=== PATIENT | male | born 1940 | race American Indian/Alaskan Native ===

== ENCOUNTER 2017-03-30 17:05 | Inpatient (IN) | payer MEDICARE, OTHER ==
[2017-03-30 17:10] VITALS: BMI 32.8
[2017-03-30 18:03] LABS: BASO # 0.04 K/mm3 (0.0-2.0); BASO % 0.9 % (0.0-3.0); EOS # 0.1 (0.0-0.7); EOS % 1.2 % (1.5-5.0); GRAN # 3.03 (1.4-6.5); GRAN % 71.1 % (50.0-68.0); HEMATOCRIT 38.2 % (42.0-52.0); LYMPH # 0.7 (1.2-3.4); LYMPH % 17.4 % (22.0-35.0); MEAN CELL VOLUME 84.9 fl (80.0-105.0); MEAN CORPUSCULAR HEMOGLOBIN 29.6 pg (25.0-35.0); MEAN CORPUSCULAR HGB CONC 34.8 g/dl (31.0-37.0); MEAN PLATELET VOLUME 10.9 fl (7.0-11.0); MONO # 0.4 (0.1-0.6); MONO % 9.4 % (1.0-6.0); RED CELL DISTRIBUTION WIDTH 13.7 % (11.5-14.5); VENOUS BLOOD GAS BASE EXCESS 4.4 mmol/L (0.0-2.0); VENOUS BLOOD PH 7.44 (7.32-7.43); WHITE BLOOD COUNT 4.3 10^3/ul (4.5-11.0)
[2017-03-30 18:11] LABS: ALB/GLOB RATIO 1.1 (1.1-1.8); ALKALINE PHOSPHATASE 108 U/L (38-126); ALT/SGPT 26 U/L (7-56); AST/SGOT 25 U/L (17-59); BILIRUBIN,TOTAL 0.8 mg/dL (0.2-1.3); BLOOD UREA NITROGEN 19 mg/dL (7-21); CALCIUM 8.9 mg/dL (8.4-10.5); CARBON DIOXIDE 25 mmol/L (21-33); CHLORIDE 105 mmol/L (98-107); GFR AFRICAN-AMERICAN > 60; INR 1.01 (0.93-1.08); PARTIAL THROMBOPLASTIN TIME 26.8 Seconds (23.7-30.8); POTASSIUM 4.6 mmol/L (3.6-5.0); SODIUM 139 mmol/L (132-148); TOTAL PROTEIN 7.8 g/dL (5.8-8.3)
[2017-03-30] MEDS ORDERED: Sodium Chloride 0.9% 500 ML IV STA (18:14)
[2017-03-30 18:26] LABS: GLUCOSE,RANDOM 372 mg/dL (70-110); TROPONIN I 0.01 ng/mL
[2017-03-30 18:41] LABS: PH,URINE 7.5 (4.7-8.0); URINE BILIRUBIN NEGATIVE (NEGATIVE); URINE BLOOD MODERATE (NEGATIVE); URINE COLOR YELLOW (YELLOW); URINE GLUCOSE (UA) >=1000 mg/dL (NEGATIVE); URINE KETONE NEGATIVE (NEGATIVE); URINE LEUKOCYTE ESTERASE SMALL Leu/uL (NEGATIVE); URINE PROTEIN 30 mg/dL (<30 mg/dL)
[2017-03-30 18:52] LABS: URINE APPEARANCE CLOUDY (CLEAR); URINE BACTERIA MANY (NEG); URINE RBC TNTC /hpf (0-2); URINE WBC TNTC /hpf (0-6)
--- NOTE | 2017-03-30 19:04 | CT ---
EXAM: CT Head Without Intravenous Contrast EXAM DATE/TIME: 03/30/2017 5:55 PM CLINICAL HISTORY: 76 years old, male; Injury or trauma; Fall; Initial encounter; Concussion / head injury; Additional info: Fall, weakness TECHNIQUE: Axial computed tomography images of the head/brain without intravenous contrast. All CT scans at this facility use one or more dose reduction techniques, viz.: automated exposure control; ma/kV adjustment per patient size (including targeted exams where dose is matched to indication; i.e. head); or iterative reconstruction technique. COMPARISON: There are no prior studies for comparison. FINDINGS: Brain: Ventricles are normal in size and configuration. There is no midline shift. There is mild prominence of sulci and gyri. There are no intra-axial or extra-axial mass lesions or areas of hemorrhage. There are no abnormal fluid collections. Langley-white differentiation is maintained. Ventricles: See above. Bones: Cranial vault is intact. Soft tissues: unremarkable Sinuses: There is no acute sinusitis. Ears and mastoids: Middle ears and mastoids are unremarkable Orbits: Orbital contents are unremarkable. IMPRESSION: No acute intracranial abnormality
[2017-03-30] MEDS ORDERED: Insulin Regular 1 UNITS/0.01 ML ML SC STA (20:55)
[2017-03-30] MEDS ORDERED: cefTRIAXone 1 gm 1 GM/100 ML BAG IVPB STA (20:57)
--- NOTE | 2017-03-30 21:14 | ED PDOC ---
Arrival/HPI - General Chief Complaint: Weakness/Neurological Deficit Time Seen by Provider: 03/30/17 17:08 Historian: Patient, Family - History of Present Illness Narrative History of Present Illness (Text): 03/30/17 21:03 76yr old male presents brought in by family for their concerns for weakness and inability to ambulate for the past 2 days. Patient with a history of diabetes and hypertension noncompliant with any of his medications. Patient denies headache dizziness. He denies chest pain or shortness of breath. He denies abdominal pain. Denies nausea or vomiting. He denies pain in the lower extremities. Patient states he's had trouble moving his right leg but there is no pain. Patient states he's had chronic lower leg swelling. Family states they noticed wounds on the anterior lower legs. Time/Duration: Other (2 days) Symptom Onset: Gradual Symptom Course: Worsening Quality: Other (NO PAIN) Past Medical History - Provider Review Nursing Documentation Reviewed: Yes - Travel History Have you recently traveled outside [place] w/in the past 3 mons?: No - Infectious Disease Hx of Infectious Diseases: None - Tetanus Immunization Tetanus Immunization: Unknown - Endocrine/Metabolic Hx Diabetes Mellitus Type 2: Yes - Psychiatric Hx Substance Use: No Family/Social History - Physician Review Nursing Documentation Reviewed: Yes Family/Social History: Unknown Family HX Smoking Status: Never Smoked Hx Alcohol Use: Yes Frequency of alcohol use: Socially Hx Substance Use: No Allergies/Home Meds Allergies/Adverse Reactions: Allergies No Known Allergies Allergy (Verified 03/30/17 17:42) Home Medications: Home Meds Medication Instructions Recorded Confirmed No Known Home Med 03/30/17 03/30/17 Review of Systems - Review of Systems Constitutional: absent: Fatigue, Fevers Eyes: absent: Vision Changes ENT: absent: Sinus Congestion Respiratory: absent: SOB, Cough Cardiovascular: absent: Chest Pain, Palpitations Gastrointestinal: absent: Abdominal Pain, Nausea, Vomiting, Appetite Changes Genitourinary Male: absent: Dysuria, Frequency, Hematuria, Urinary Output Changes Musculoskeletal: absent: Arthralgias, Back Pain, Neck Pain Skin: Skin Lesions Neurological: absent: Headache, Dizziness, Focal Weakness Psychiatric: absent: Anxiety, Depression Physical Exam Vital Signs Reviewed: Yes Vital Signs Temp Pulse Resp BP Pulse Ox 03/30/17 20:14 91 H 16 178/100 H 100 03/30/17 17:05 98 F 93 H 18 203/102 H 97 Temperature: Afebrile Blood Pressure: Hypertensive Pulse: Regular Respiratory Rate: Normal Appearance: Positive for: Well-Appearing, Non-Toxic, Comfortable Pain Distress: None Mental Status: Positive for: Alert and Oriented X 3 Finger Stick Blood Glucose: 344 - Systems Exam Head: Present: Atraumatic Mouth: Present: Moist Mucous Membranes Neck: Present: Normal Range of Motion Respiratory/Chest: Present: Clear to Auscultation. No: Wheezes, Rhonchi, Tachypneic Cardiovascular: Present: Regular Rate and Rhythm Abdomen: No: Tenderness, Distention, Peritoneal Signs, Guarding Back: No: Midline Tenderness, Paraspinal Tenderness Upper Extremity: Present: Normal ROM. No: Tenderness Lower Extremity: Present: Edema, NORMAL PULSES, Swelling, Erythema, Neurovascularly Intact, Other (right leg; shortened, limited rom of hip; NO tenderness. left leg; full rom of leg; abrasion noted to left leg; + minimal erythema; + edema lower extremities bilaterally; sensation intact. ). No: CALF TENDERNESS, Normal ROM, Tenderness, Deformity Neurological: Present: GCS=15, Speech Normal Skin: Present: Warm, Dry Psychiatric: Present: Alert, Oriented x 3 Medical Decision Making ED Course and Treatment: 03/30/17 21:17 76yr old male Brought in by family for weakness and inability to ambulate. history of fall 2 days ago. pt denies any complaints. pt slightly hypertensive, elevated glucose. cbc; wnl cmp; glucose; 372 trop; wnl bnp; wnl cxr; wnl ct head; FINDINGS: Brain: Ventricles are normal in size and configuration. There is no midline shift. There is mild prominence of sulci and gyri. There are no intra-axial or extra-axial mass lesions or areas of hemorrhage. There are no abnormal fluid collections. Langley-white differentiation is maintained. Ventricles: See above. Bones: Cranial vault is intact. Soft tissues: unremarkable Sinuses: There is no acute sinusitis. Ears and mastoids: Middle ears and mastoids are unremarkable Orbits: Orbital contents are unremarkable. IMPRESSION: No acute intracranial abnormality ekg; normal sinus rhythm at 93 bpm with an incomplete right bundle branch block QTc 509 UA: + leukocytes, TNTC WBCS urine culture pending blood culture pending vbg; glucose 403 lactate wnl xray of right hip; + fracture of hip. venous duplex b/l lower extremities; no dvt pt started on rocephin IV for UTI insulin given sq for elevated glucose all results discussed in depth with patient and family. dr. mustafa discussed case in depth with dr. cardoza; accepts admission case discussed with resident dr. roldan. will consult dr. kemp for hip fracture impression; UTI, hyperglycemia, hypertension, near syncope, hip fracture admit to tele - Lab Interpretations Lab Results: 03/30/17 17:35 03/30/17 17:35 Lab Results 03/30/17 18:30: Urine Color Yellow, Urine Appearance Cloudy, Urine pH 7.5, Ur Specific [place] 1.020, Urine Protein 30 H, Urine Glucose (UA) >=1000, Urine Ketones Negative, Urine Blood Moderate H, Urine Nitrate Negative, Urine Bilirubin Negative, Urine Urobilinogen 1.0 H, Ur Leukocyte Esterase Small H, Urine RBC Tntc, Urine WBC Tntc, Ur Epithelial Cells 6 - 8, Urine Bacteria Many 03/30/17 17:35: WBC 4.3 L, RBC 4.50, Hgb 13.3 L, Hct 38.2 L, MCV 84.9, MCH 29.6 , MCHC 34.8, RDW 13.7, Plt Count 207, MPV 10.9, Gran % 71.1 H, Lymph % (Auto) 17.4 L, [place] % (Auto) 9.4 H, Eos % (Auto) 1.2 L, Baso % (Auto) 0.9, Gran # 3.03 , Lymph # 0.7 L, [place] # 0.4, Eos # 0.1, Baso # 0.04 03/30/17 17:35: Sodium 139, Chloride 105, Potassium 4.6, Carbon Dioxide 25, Anion Gap 14, BUN 19, Creatinine 1.1, Est GFR ( Amer) > 60, Est GFR (Non- Af Amer) > 60, Random Glucose 372 H*, Calcium 8.9, Total Bilirubin 0.8, AST 25, ALT 26, Alkaline Phosphatase 108, Lactate Dehydrogenase 885 H, Total Creatine Kinase 142, Troponin I 0.01, NT-Pro-B Natriuret Pep 431, Total Protein 7.8, Albumin 4.0, Globulin 3.8, Albumin/Globulin Ratio 1.1 03/30/17 17:35: PT 10.9, INR 1.01, APTT 26.8 03/30/17 17:35: pO2 54, VBG pH 7.44 H, VBG pCO2 43.0, VBG HCO3 29.2 H, VBG Total CO2 30.5 H, VBG O2 Sat (Calc) 91.7 H, VBG Base Excess 4.4 H, VBG Potassium 4.5, Sodium 139.0, Chloride 105.0, Glucose 403 H*, Lactate 1.0, FiO2 21.0, Venous Blood Potassium 4.5 - RAD Interpretation Radiology Orders: 03/30/17 17:55 HEAD W/O CONTRAST [CT] Stat CHEST ONE VIEW [RAD] Stat Hip Right [HIP MIN 2V W/ PELVIS RT] [RAD] Stat DUPLEX LOWER EXTRM VEIN BILAT [US] Stat - Medication Orders Current Medication Orders: Ceftriaxone Sodium (Rocephin 1 Gram Ivpb) 1 gm in 100 mls @ 200 mls/hr IVPB STAT STA PRN Reason: Protocol Stop: 03/30/17 21:26 Discontinued Medications Sodium Chloride (Sodium Chloride 0.9%) 500 mls @ 999 mls/hr IV .Q31M STA Stop: 03/30/17 18:44 Last Admin: 03/30/17 19:26 Dose: 999 mls/hr Insulin Human Regular (Humulin R) 6 units SC STAT STA Stop: 03/30/17 20:56 Disposition/Present on Arrival - Present on Arrival Any Indicators Present on Arrival: Yes History of DVT/PE: No History of Uncontrolled Diabetes: Yes Urinary Catheter: No History of Decub. Ulcer: No History Surgical Site Infection Following: None - Disposition Have Diagnosis and Disposition been Completed?: Yes Diagnosis: UTI (urinary tract infection), Hyperglycemia, Hypertension, Weakness, Hip fracture, Near syncope Disposition: HOSPITALIZED Disposition Time: 20:00 Patient Plan: Admission, Telemetry Patient Problems: Current Active Problems Problem Status Onset Fall Acute Hip fracture Acute Hyperglycemia Acute Hypertension Acute Near syncope Acute UTI (urinary tract infection) Acute Weakness Acute Condition: FAIR Discharge Instructions (ExitCare): Weakness (ED) Referrals: [facility] Dedrick Rezeyad, [Non-Staff] - Follow up with primary Forms: [employer] (Uzbek)
[2017-03-30] MEDS ORDERED: Sodium Chloride 0.9% 1,000 ML IV SCH (22:15)
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
[2017-03-31] MEDS: Cefepime 1gm in NS 100ml 1 GM/100 ML BAG IVPB SCH ×3 (00:20→21:18)
--- NOTE | 2017-03-31 00:29 | CT ---
EXAM: CT Chest Without Intravenous Contrast CLINICAL HISTORY: 76 years old, male; Injury or trauma; Fall; Initial encounter; Blunt; Generalized; Blunt trauma (contusions or hematomas); Additional info: S/P fall TECHNIQUE: Axial computed tomography images of the chest without intravenous contrast. All CT scans at this facility use one or more dose reduction techniques, viz.: automated exposure control; ma/kV adjustment per patient size (including targeted exams where dose is matched to indication; i.e. head); or iterative reconstruction technique. Coronal and sagittal reformatted images were created and reviewed. COMPARISON: There are no prior studies for comparison. FINDINGS: Lungs and pleural spaces: Trachea and main bronchi are patent.There is no pneumothorax. There is no focal consolidation or contusion. There is dependent atelectasis and scarring greatest at the lung bases. There are no effusions. Heart and vasculature: Heart size is normal. There are coronary artery calcifications.There is fluid in the pericardial recesses. Aorta is normal in caliber. Main pulmonary artery is mildly prominent. Mediastinum: Esophagus is partially distended with air. There is a small hiatal hernia. There are clips at the gastroesophageal junction.There is shotty mediastinal adenopathy. Laura are not optimally evaluated without contrast material. Thyroid: Thyroid is not optimally demonstrated. Bones/joints: Bony structures are osteopenic. There are degenerative changes. There are no acute displaced rib fractures. Soft tissues: There is gynecomastia on the left. Upper abdomen: Referring to follow report for abdominal findings IMPRESSION: No acute intrathoracic injury, no acute displaced rib fracture Additional findings as described above. EXAM: CT Abdomen and Pelvis Without Intravenous Contrast EXAM DATE/TIME: 03/30/2017 10:56 PM CLINICAL HISTORY: 76 years old, male; Injury or trauma; Fall; Initial encounter; Blunt; Generalized; Blunt trauma (contusions or hematomas); Additional info: S/P fall TECHNIQUE: Axial computed tomography images of the abdomen and pelvis without intravenous contrast. All CT scans at this facility use one or more dose reduction techniques, viz.: automated exposure control; ma/kV adjustment per patient size (including targeted exams where dose is matched to indication; i.e. head); or iterative reconstruction technique. Coronal and sagittal reformatted images were created and reviewed. COMPARISON: DX - HIP MIN 2V W/ PELVIS RT 03/30/2017 6:48:36 PM FINDINGS: Artifact: There is streak artifact from a monitor Lower thorax: Refer to prior report for chest findings ABDOMEN: Liver: unremarkable Gallbladder and bile ducts: Gallbladder is partially distended. Common duct is prominent. Pancreas: Pancreas is mildly atrophic. Spleen: unremarkable Adrenals: There are bilateral adrenal nodules. Kidneys and ureters: There are bilateral renal cysts. Kidneys and ureters are otherwise unremarkable. Stomach and bowel: Stomach is almost completely empty. Rotation is normal. Small bowel is mildly distended with fluid and air. There is no obstruction. Appendix and terminal ileum are unremarkable.There is moderate stool in the colon. Appendix: See stomach and bowel PELVIS: Bladder: Bladder is partially distended. There is mild bladder wall thickening. There is minimal perivesical inflammation. Reproductive: Prostate is enlarged. Seminal vesicles are unremarkable. ABDOMEN and PELVIS: Intraperitoneal space:There is no free air or free fluid. Bones/joints: Bony structures are osteopenic.There are degenerative changes in the osseus structures. There is a right subcapital fracture which appears subacute. There is distraction at the fracture site. Soft tissues: unremarkable Vasculature: There are vascular calcifications. Lymph nodes: There is no pathologic adenopathy. IMPRESSION: No acute solid visceral or bowel injury; enlarged prostate with bladder wall thickening; subacute right hip fracture Additional findings as described above.
[2017-03-31 01:25] LABS: CHOLESTEROL 163 mg/dL (130-200)
[2017-03-31 01:44] LABS: FREE T4 1.27 ng/dL (0.78-2.19); T4 8.4 ug/dL (5.5-11.0)
[2017-03-31] MEDS: Sodium Chloride 0.9% 1,000 ML IV SCH ×2 (01:50→09:59)
[2017-03-31 01:53] LABS: TROPONIN I < 0.01 ng/mL
[2017-03-31 01:57] LABS: THYROID STIMULATING HORMONE 1.83 mIU/mL (0.46-4.68)
[2017-03-31] MEDS: Pantoprazole 40 mg EC Tab PO SCH (05:32)
[2017-03-31] MEDS: Insulin Human NPH 1 UNITS/0.01 ML SC SCH (06:19)
[2017-03-31 07:08] LABS: HEMATOCRIT 35.4 % (42.0-52.0); MEAN CELL VOLUME 85.3 fl (80.0-105.0); MEAN CORPUSCULAR HEMOGLOBIN 29.2 pg (25.0-35.0); MEAN CORPUSCULAR HGB CONC 34.2 g/dl (31.0-37.0); MEAN PLATELET VOLUME 10.5 fl (7.0-11.0); WHITE BLOOD COUNT 6.9 10^3/ul (4.5-11.0)
--- NOTE | 2017-03-31 07:27 | RAD ---
PROCEDURE: Radiographs of the Right Shoulder HISTORY: s/p fall COMPARISON: No prior. FINDINGS: BONES: Normal. No fracture. JOINTS: Glenohumeral osteoarthritis. Acromioclavicular articulation is intact. SOFT TISSUES: Normal. OTHER FINDINGS: None. IMPRESSION: No acute fracture. Glenohumeral osteoarthritis.
--- NOTE | 2017-03-31 07:29 | RAD ---
PROCEDURE: CHEST RADIOGRAPH, 1 VIEW HISTORY: chest pain COMPARISON: None available. FINDINGS: LUNGS: GoClear. PLEURA: No pneumothorax or pleural fluid seen. CARDIOVASCULAR: Normal. OSSEOUS STRUCTURES: No significant abnormalities. VISUALIZED UPPER ABDOMEN: Normal. OTHER FINDINGS: None. IMPRESSION: No active disease.
[2017-03-31] MEDS ORDERED: Insulin Lispro (humaLOG) MEDIUM Coverage SC SCH (07:30)
--- NOTE | 2017-03-31 07:32 | RAD ---
PROCEDURE: Right Hip Radiographs. HISTORY: hip pain COMPARISON: None. FINDINGS: BONES: There is no acute fracture. There is fracture of the right femoral neck with absence of the normal femoral neck bone identified, likely reflecting a chronic/subacute fracture with nonunion and resorption. Please correlate with history. There is no dislocation. There is no other fracture identified elsewhere. JOINTS: As above SOFT TISSUES: Normal. OTHER FINDINGS: None. IMPRESSION: Probable chronic/subacute fracture right femoral neck with bony resorption. Please correlate with history to rule out acute fracture.
[2017-03-31 07:36] LABS: BILIRUBIN,TOTAL 0.9 mg/dL (0.2-1.3); CALCIUM 8.6 mg/dL (8.4-10.5); POTASSIUM 3.9 mmol/L (3.6-5.0); TOTAL PROTEIN 6.7 g/dL (5.8-8.3)
[2017-03-31] MEDS ORDERED: HYDROmorphone 0.5 mg/0.5 ml ISec IVP PRN ×2 (07:41→16:56)
--- NOTE | 2017-03-31 07:46 | RAD ---
PROCEDURE: Bilateral knees HISTORY: s/p fall COMPARISON: Not available TECHNIQUE: AP and lateral radiographs of the right and left knee are submitted. FINDINGS: There is no evidence of fracture. The joint spaces and articular surfaces are preserved. There is no joint effusion. IMPRESSION: No acute fracture.
--- NOTE | 2017-03-31 07:47 | RAD ---
PROCEDURE: Radiographs of the bilateral Tibiae and Fibulae. HISTORY: s/p fall COMPARISON: None available. TECHNIQUE: Frontal and lateral views obtained. FINDINGS: BONES: RIGHT TIBIA: No fracture or destructive lesion. LEFT TIBIA: No fracture or destructive lesion. JOINT SPACES: RIGHT TIBIA: Normal. LEFT TIBIA: Normal. SOFT TISSUES: RIGHT TIBIA: Normal. LEFT TIBIA: Normal. OTHER FINDINGS: None. IMPRESSION: Unremarkable radiographs of the bilateral tibia and fibula.
--- NOTE | 2017-03-31 08:42 | CP.PCM.CON ---
<SarahElsie - Last Filed: 03/31/17 08:39> History of Present Illness - History of Present Illness History of Present Illness: 76yo Male with PMH DM2 (on insulin) and HTN seen at bedside with attending Dr. Rahman after podiatry consultation for left leg wound. Patient states that he fell on thursday and scraped his leg. Patient stats that he broke his right hip and is going for surgery today. Patient denies any pain in his leg. He denies any other pedal complaints at this time. Patient denies n/ f/v/d/c/sob. Review of Systems - Constitutional Constitutional: As Per HPI Past Patient History - Infectious Disease Hx of Infectious Diseases: None - Tetanus Immunizations Tetanus Immunization: Unknown - Past Social History Smoking Status: Never Smoked - CARDIAC Hx Cardiac Disorders: Yes Hx Hypercholesterolemia: Yes Hx Hypertension: Yes - PULMONARY Hx Respiratory Disorders: No - NEUROLOGICAL Hx Neurological Disorder: No - HEENT Hx HEENT Problems: No - RENAL Hx Chronic Kidney Disease: No - ENDOCRINE/METABOLIC Hx Endocrine Disorders: Yes Hx Diabetes Mellitus Type 2: Yes - HEMATOLOGICAL/ONCOLOGICAL Hx Blood Transfusions: No - INTEGUMENTARY Hx Dermatological Problems: No - MUSCULOSKELETAL/RHEUMATOLOGICAL Hx Musculoskeletal Disorders: Yes (uses walker) Hx Falls: Yes - GASTROINTESTINAL Hx Gastrointestinal Disorders: No - GENITOURINARY/GYNECOLOGICAL Hx Genitourinary Disorders: No - PSYCHIATRIC Hx Psychophysiologic Disorder: (etoh) Hx Substance Use: No - SURGICAL HISTORY Hx Surgeries: No Meds Allergies/Adverse Reactions: Allergies Allergy/AdvReac Type Severity Reaction Status Date / Time No Known Allergies Allergy Verified 03/30/17 17:42 - Medications Medications: Current Medications Heparin Sodium (Porcine) (Heparin) 5,000 units SC Q8 [facility] PRN Reason: Protocol Last Admin: 03/31/17 01:44 Dose: Not Given Hydromorphone HCl (Dilaudid) 0.5 mg IVP Q4H PRN PRN Reason: Pain, moderate (4-7) Cefepime HCl (Maxipime 1gm) 1 gm in 100 mls @ 100 mls/hr IVPB Q8 [facility] PRN Reason: Protocol Last Admin: 03/31/17 05:32 Dose: 100 mls/hr Sodium Chloride (Sodium Chloride 0.9%) 1,000 mls @ 100 mls/hr IV .Q10H [facility] Last Admin: 03/31/17 01:50 Dose: 100 mls/hr Insulin Human Lispro (Humalog Med) 0 units SC ACHS [facility] PRN Reason: Protocol Insulin Human NPH (Humulin N) 10 units SC Q12H [facility] Last Admin: 03/31/17 06:19 Dose: Not Given Losartan Potassium (Cozaar) 100 mg PO DAILY [facility] Metoprolol Tartrate (Lopressor) 25 mg PO BRKDIN [facility] Ondansetron HCl (Zofran Inj) 4 mg IVP Q4H PRN PRN Reason: Nausea/Vomiting Pantoprazole Sodium (Protonix Ec Tab) 40 mg PO 0600,1600 [facility] Last Admin: 03/31/17 05:32 Dose: 40 mg Physical Exam - Constitutional Appears: Well, Non-toxic, No Acute Distress - Extremities Exam Additional comments: O: Vasc: lightly palpable DP pulse 1/4 b/l, nonpalpable PT pulses, TG wnl, CFT < 3 sec to all digits, nonpitting edema neuro: grossly diminished derm: nonpitting edema, no erythema, superficial abrasion noted to left lateral upper leg, no purulence, no drainage, no malodor, no active bleeding, no acute clinical signs of infection ortho: no pain on palpation of wound - Neurological Exam Neurological exam: Alert, Oriented x3 - Psychiatric Exam Psychiatric exam: Normal Affect, Normal Mood Results - Vital Signs Recent Vital Signs: Last Vital Signs Temp 98.7 F 03/31/17 06:00 Pulse 86 03/31/17 06:00 Resp 20 03/31/17 06:00 BP 154/84 H 03/31/17 06:00 Pulse Ox 97 03/31/17 06:00 - Labs Result Diagrams: 03/31/17 05:15 03/31/17 05:15 Labs: Laboratory Results - last 24 hr 03/30/17 03/31/17 03/31/17 22:26 00:30 00:30 WBC RBC Hgb Hct MCV MCH MCHC RDW Plt Count MPV Sodium Potassium Chloride Carbon Dioxide Anion Gap BUN Creatinine Est GFR ( Amer) Est GFR (Non-Af Amer) POC Glucose (mg/dL) 271 H Random Glucose Lactic Acid Uric Acid Calcium Total Bilirubin AST ALT Alkaline Phosphatase Total Creatine Kinase 127 Troponin I < 0.01 Total Protein Albumin Globulin Albumin/Globulin Ratio Triglycerides 52 Cholesterol 163 LDL Cholesterol Direct 67 HDL Cholesterol 64 H Free T4 1.27 Thyroxine (T4) 8.4 TSH 3rd Generation 1.83 03/31/17 03/31/17 03/31/17 00:30 05:15 05:15 WBC 6.9 D RBC 4.15 Hgb 12.1 L Hct 35.4 L MCV 85.3 MCH 29.2 MCHC 34.2 RDW 14.0 Plt Count 180 MPV 10.5 Sodium 142 Potassium 3.9 Chloride 110 H Carbon Dioxide 24 Anion Gap 12 BUN 18 Creatinine 1.5 H Est GFR ( Amer) 55 Est GFR (Non-Af Amer) 46 POC Glucose (mg/dL) Random Glucose 109 Lactic Acid 1.2 Uric Acid Calcium 8.6 Total Bilirubin 0.9 AST 26 ALT 26 Alkaline Phosphatase 82 Total Creatine Kinase Troponin I Total Protein 6.7 Albumin 3.3 Globulin 3.4 Albumin/Globulin Ratio 1.0 L Triglycerides Cholesterol LDL Cholesterol Direct HDL Cholesterol Free T4 Thyroxine (T4) TSH 3rd Generation 03/31/17 03/31/17 05:36 08:00 WBC RBC Hgb Hct MCV MCH MCHC RDW Plt Count MPV Sodium Potassium Chloride Carbon Dioxide Anion Gap BUN Creatinine Est GFR ( Amer) Est GFR (Non-Af Amer) POC Glucose (mg/dL) 122 H Random Glucose Lactic Acid Uric Acid 4.2 Calcium Total Bilirubin AST ALT Alkaline Phosphatase Total Creatine Kinase Troponin I Total Protein Albumin Globulin Albumin/Globulin Ratio Triglycerides Cholesterol LDL Cholesterol Direct HDL Cholesterol Free T4 Thyroxine (T4) TSH 3rd Generation Assessment & Plan - Assessment and Plan (Free Text) Assessment: 76 y/o male seen at bedside for left lower extremity superficial abrasion secondary to fall Plan: patient evaluated and chart reviewed seen at bedside with attending Dr. Rahman labs and vitals reviewed; afebrile patient NPO, going for hip surgery today cleansed leg with saline, applied optifoam to left leg abrasion podiatry will continue to monitor while patient remains in house <Leona Rahman - Last Filed: 04/03/17 13:12> Meds - Medications Medications: Current Medications Aspirin (Ecotrin) 81 mg PO DAILY [facility] Last Admin: 04/03/17 10:11 Dose: 81 mg Calcium Carbonate (Caltrate) 600 mg PO DAILY [facility] Last Admin: 04/03/17 10:10 Dose: 600 mg Clonidine HCl (Catapres) 0.1 mg PO Q6H PRN PRN Reason: FORSBP>=170&/ORDBP>=100MMHG Ergocalciferol (Drisdol 50,000 Intl Units Cap) 1 cap PO Q7D [facility] Last Admin: 04/02/17 14:38 Dose: 1 cap Famotidine (Pepcid) 20 mg PO 1000,2200 [facility] Last Admin: 04/03/17 10:14 Dose: 20 mg Hydromorphone HCl (Dilaudid) 0.5 mg IVP Q4H PRN PRN Reason: Pain, moderate (4-7) Sodium Chloride (Sodium Chloride 0.9%) 1,000 mls @ 100 mls/hr IV .Q10H [facility] Last Admin: 04/03/17 10:14 Dose: 100 mls/hr Insulin Human Lispro (Humalog Med) 0 units SC ACHS [facility] PRN Reason: Protocol Last Admin: 04/03/17 10:11 Dose: Not Given Insulin Human NPH (Humulin N) 18 units SC ACBD [facility] Metoclopramide HCl (Reglan) 10 mg IV ONCE PRN PRN Reason: Nausea/Vomiting Metoprolol Tartrate (Lopressor) 25 mg PO BRKDIN [facility] Last Admin: 04/03/17 10:13 Dose: 25 mg Mupirocin (Bactroban Ointment) 0 gm TOP BID [facility] Last Admin: 04/03/17 10:10 Dose: 1 applic Ondansetron HCl (Zofran Inj) 4 mg IVP Q4H PRN PRN Reason: Nausea/Vomiting Polyethylene Glycol (Miralax) 17 gm PO BID [facility] Last Admin: 04/03/17 10:13 Dose: 17 gm Risperidone (Risperdal Tab) 0.5 mg PO 0800,1600 [facility] Last Admin: 04/03/17 10:14 Dose: 0.5 mg Risperidone (Risperdal Tab) 1 mg PO HS [facility] Last Admin: 04/02/17 22:27 Dose: 1 mg Tamsulosin HCl (Flomax) 0.4 mg PO DAILY [facility] Last Admin: 04/03/17 10:11 Dose: 0.4 mg Ziprasidone (Geodon Inj) 10 mg IM Q4H PRN PRN Reason: Psychosis Results - Vital Signs Recent Vital Signs: Last Vital Signs Temp 98.2 F 04/02/17 16:35 Pulse 80 04/03/17 10:13 Resp 20 04/02/17 16:35 BP 134/90 04/03/17 10:13 Pulse Ox 97 04/02/17 16:35 - Labs Result Diagrams: 04/03/17 07:50 04/03/17 07:50 Labs: Laboratory Results - last 24 hr 04/02/17 04/02/17 04/02/17 12:02 16:38 21:38 WBC RBC Hgb Hct MCV MCH MCHC RDW Plt Count Manual Plt Count MPV Gran % Lymph % (Auto) Miner % (Auto) Eos % (Auto) Baso % (Auto) Gran # Lymph # Miner # Eos # Baso # Sodium Potassium Chloride Carbon Dioxide Anion Gap BUN Creatinine Est GFR ( Amer) Est GFR (Non-Af Amer) POC Glucose (mg/dL) 315 H 278 H 194 H Random Glucose Calcium Phosphorus Magnesium Total Bilirubin Direct Bilirubin AST ALT Alkaline Phosphatase Total Protein Albumin Globulin Albumin/Globulin Ratio 04/03/17 04/03/17 04/03/17 07:32 07:50 07:50 WBC 7.9 RBC 3.34 L Hgb 9.6 L Hct 28.1 L MCV 84.1 MCH 28.7 MCHC 34.2 RDW 14.0 Plt Count 85 L Manual Plt Count MPV 9.7 Gran % 77.6 H Lymph % (Auto) 9.3 L Miner % (Auto) 10.5 H Eos % (Auto) 2.5 Baso % (Auto) 0.1 Gran # 6.14 Lymph # 0.7 L Miner # 0.8 H Eos # 0.2 Baso # 0.01 Sodium 137 Potassium 3.7 Chloride 109 Carbon Dioxide 22 Anion Gap 10 BUN 30 H Creatinine 1.3 Est GFR ( Amer) > 60 Est GFR (Non-Af Amer) 54 POC Glucose (mg/dL) 51 L Random Glucose 68 L Calcium 7.7 L Phosphorus 2.4 L Magnesium 1.9 Total Bilirubin 0.6 Direct Bilirubin 0.3 AST 63 H ALT 39 Alkaline Phosphatase 63 Total Protein 5.5 L Albumin 2.4 L Globulin 3.1 Albumin/Globulin Ratio 0.8 L 04/03/17 04/03/17 04/03/17 08:55 09:38 11:26 WBC RBC Hgb Hct MCV MCH MCHC RDW Plt Count Manual Plt Count 90 L MPV Gran % Lymph % (Auto) Miner % (Auto) Eos % (Auto) Baso % (Auto) Gran # Lymph # Miner # Eos # Baso # Sodium Potassium Chloride Carbon Dioxide Anion Gap BUN Creatinine Est GFR ( Amer) Est GFR (Non-Af Amer) POC Glucose (mg/dL) 94 85 Random Glucose Calcium Phosphorus Magnesium Total Bilirubin Direct Bilirubin AST ALT Alkaline Phosphatase Total Protein Albumin Globulin Albumin/Globulin Ratio Attending/Attestation - Attestation I have personally seen and examined this patient.: Yes I have fully participated in the care of the patient.: Yes I have reviewed all pertinent clinical information: Yes
[2017-03-31] MEDS: Insulin Lispro (humaLOG) MEDIUM Coverage SC SCH ×3 (09:33→22:06)
[2017-03-31] MEDS ORDERED: cefTRIAXone 1 gm 1 GM/100 ML BAG IVPB SCH (10:00)
--- NOTE | 2017-03-31 10:00 | CON ---
DATE: 03/31/2017 HISTORY: The patient is a 76-year-old male who presents with near syncope. He was brought in with hip pain. X-ray reveals a subacute fracture. PAST MEDICAL HISTORY: The patient's past medical history is notable for hypertension as well as diabetes mellitus. The patient denies chest pain, denies shortness of breath. He does admit to chronic edema in the lower extremities. SOCIAL HISTORY AND REVIEW OF SYSTEMS: Is free of cardiac symptomatology. PHYSICAL EXAMINATION: VITAL SIGNS: Blood pressure 154/84, heart rate in the 80s. NECK: Negative JVD. LUNGS: Decreased breath sounds bilaterally. HEART: Reveal S1, S2. EXTREMITIES: Chronic edema. DIAGNOSTIC DATA: EKG shows normal sinus rhythm with diffuse ST-T changes. LABORATORY DATA: Troponin is negative x1. Thyroid function is unremarkable. Creatinine is 1.5, hemoglobin is 12.1. IMPRESSION 1. Near syncope. 2. Questionable fracture of the hip 3. Hypertension. 4. Diabetes mellitus. 5. Renal insufficiency. 6. Chronic pedal edema. PLAN: Given these findings, his history is not is not revealing. We will need to obtain an echocardiogram to evaluate his LV function. Eliazar Martin MD
[2017-03-31 10:49] LABS: IRON 46 ug/dL (45-180)
--- NOTE | 2017-03-31 11:25 | US ---
HISTORY: Leg pain and swelling. Evaluate for DVT PHYSICIAN(S): Eliazar Cardona MD. TECHNIQUE: Duplex sonography and color-flow Doppler with graded compression were used to evaluate the deep venous systems of both lower extremities. The exam is limited by edema. The tibial veins are not well seen. FINDINGS: The visualized deep venous systems of both lower extremities are sonographically normal and compressible. Normal wave forms and augmentation are seen. There is no sonographic evidence for deep venous thrombosis in the visualized segments of both lower extremities. IMPRESSION: No sonographic evidence for deep venous thrombosis in the visualized segments of both lower extremities.
--- NOTE | 2017-03-31 11:30 | CP.PCM.CON ---
History of Present Illness - History of Present Illness History of Present Illness: 76 year old male with PMH of DM, HTN, obesity with BMI 33 came in to [facility] because of a fall which he sustained last Thursday. He felt weak at the time, but denies loss of consciousness or trauma to the head. He did sustain abrasions to his left leg. He has also been complaining of urinary frequency and hesitancy for the past 2 days but denies burning sensation on urination. He denies fever or chills, no nausea or vomiting, no abdominal pain, no flank pain, no headache or dizziness, no chest pain, no SOB, no diarrhea. In the ED, urinalysis pyuria and hematuria and CT scan of the abdomen and pelvis revealed enlarged prostate with urinary bladder wall thickening. Infectious diseases consult is requested to further evaluate and manage. Review of Systems - Review of Systems All systems: reviewed and no additional remarkable complaints except (as per HPI ) Past Patient History - Infectious Disease Hx of Infectious Diseases: None - Tetanus Immunizations Tetanus Immunization: Unknown - Past Social History Smoking Status: Never Smoked - CARDIAC Hx Cardiac Disorders: Yes Hx Hypercholesterolemia: Yes Hx Hypertension: Yes - PULMONARY Hx Respiratory Disorders: No - NEUROLOGICAL Hx Neurological Disorder: No - HEENT Hx HEENT Problems: No - RENAL Hx Chronic Kidney Disease: No - ENDOCRINE/METABOLIC Hx Endocrine Disorders: Yes Hx Diabetes Mellitus Type 2: Yes - HEMATOLOGICAL/ONCOLOGICAL Hx Blood Transfusions: No - INTEGUMENTARY Hx Dermatological Problems: No - MUSCULOSKELETAL/RHEUMATOLOGICAL Hx Musculoskeletal Disorders: Yes (uses walker) Hx Falls: Yes - GASTROINTESTINAL Hx Gastrointestinal Disorders: No - GENITOURINARY/GYNECOLOGICAL Hx Genitourinary Disorders: No - PSYCHIATRIC Hx Psychophysiologic Disorder: (etoh) Hx Substance Use: No - SURGICAL HISTORY Hx Surgeries: No Meds Allergies/Adverse Reactions: Allergies Allergy/AdvReac Type Severity Reaction Status Date / Time No Known Allergies Allergy Verified 03/30/17 17:42 - Medications Medications: Current Medications Heparin Sodium (Porcine) (Heparin) 5,000 units SC Q8 [facility] PRN Reason: Protocol Last Admin: 03/31/17 01:44 Dose: Not Given Cefepime HCl (Maxipime 1gm) 1 gm in 100 mls @ 100 mls/hr IVPB Q8 [facility] PRN Reason: Protocol Last Admin: 03/31/17 05:32 Dose: 100 mls/hr Sodium Chloride (Sodium Chloride 0.9%) 1,000 mls @ 100 mls/hr IV .Q10H [facility] Last Admin: 03/31/17 01:50 Dose: 100 mls/hr Ibuprofen (Motrin Tab) 600 mg PO Q4H PRN PRN Reason: Pain, Mild (1-3) Last Admin: 03/31/17 00:21 Dose: 600 mg Insulin Human Lispro (Humalog Med) 0 units SC ACHS [facility] PRN Reason: Protocol Insulin Human NPH (Humulin N) 10 units SC Q12H [facility] Losartan Potassium (Cozaar) 100 mg PO DAILY [facility] Pantoprazole Sodium (Protonix Ec Tab) 40 mg PO 0600,1600 [facility] Last Admin: 03/31/17 05:32 Dose: 40 mg Physical Exam - Constitutional Appears: Non-toxic, No Acute Distress - Head Exam Head Exam: NORMAL INSPECTION - ENT Exam ENT Exam: Mucous Membranes Moist - Neck Exam Neck exam: Negative for: Lymphadenopathy, Meningismus - Respiratory Exam Respiratory Exam: Decreased Breath Sounds - Cardiovascular Exam Cardiovascular Exam: +S1, +S2 - GI/Abdominal Exam GI & Abdominal Exam: Soft. absent: Tenderness Results - Vital Signs Recent Vital Signs: Last Vital Signs Temp 98 F 03/31/17 01:44 Pulse 76 03/31/17 01:49 Resp 20 03/31/17 01:44 BP 199/111 H 03/31/17 01:49 Pulse Ox 100 03/30/17 21:42 - Labs Result Diagrams: 03/31/17 05:15 03/31/17 05:15 Labs: Laboratory Results - last 24 hr 03/30/17 03/31/17 03/31/17 22:26 00:30 00:30 POC Glucose (mg/dL) 271 H Lactic Acid Total Creatine Kinase 127 Troponin I < 0.01 Triglycerides 52 Cholesterol 163 LDL Cholesterol Direct 67 HDL Cholesterol 64 H Free T4 1.27 Thyroxine (T4) 8.4 TSH 3rd Generation 1.83 03/31/17 03/31/17 00:30 05:36 POC Glucose (mg/dL) 122 H Lactic Acid 1.2 Total Creatine Kinase Troponin I Triglycerides Cholesterol LDL Cholesterol Direct HDL Cholesterol Free T4 Thyroxine (T4) TSH 3rd Generation Assessment & Plan - Assessment and Plan (Free Text) Plan: Assessment Consider urinary tract infection, R/O prostatitis, R/O benign prostatic hyperplasia DM HTN obesity with BMI 33 Plan Started the patient on Cefepime pending blood and urine cx; follow up PSA levels ; suggest Urology evaluation will monitor clinically
--- NOTE | 2017-03-31 12:46 | US ---
HISTORY: cbd dil, ?gal COMPARISON: None. TECHNIQUE: Sonographic evaluation of the abdomen. FINDINGS: LIVER: Measures 13.9 cm. Normal echogenicity of the liver parenchyma. Smooth contour. No mass. No biliary dilatation. Normal hepatopetal portal venous flow demonstrated. GALLBLADDER: Unremarkable. No gallstones. COMMON BILE DUCT: Measures 4 mm. No stones. No dilatation. PANCREAS: Obscured by bowel gas. RIGHT KIDNEY: Measures 9.9cm. Normal echogenicity. No calculus. No hydronephrosis. Lower pole cortical cyst, 7 x 9 x 12 mm. LEFT KIDNEY: Measures 10.2cm. Normal echogenicity. No calculus. No hydronephrosis. Upper pole cortical cyst, 1.9 x 2.3 x 2.3 cm. Mid left renal cyst, 3.5 x 4.0 x 4.3 cm. SPLEEN: Poorly visualized. Obscured by bowel gas. AORTA: No aneurysm. Only proximal abdominal aorta could be adequately visualized. IVC: Unremarkable. OTHER FINDINGS: None. IMPRESSION: No evidence of cholelithiasis or cholecystitis. Bilateral renal cysts. Limited visualization of pancreas and spleen.
--- NOTE | 2017-03-31 13:13 | CON ---
DATE: NEUROLOGY CONSULTATION REPORT REASON FOR CONSULTATION: Altered mental status. HISTORY OF PRESENTING ILLNESS: Patient is a 76-year-old male who was brought to the emergency room after he fell. The patient is a poor historian. Patient said he fell from the bed and since then he has difficulty with walking. Patient was also noted to be confused in the emergency room that is why neurology consultation was called. At the moment, patient states he is fine. He does complain of some mild weakness in the right upper extremity. PAST MEDICAL HISTORY: Includes diabetes mellitus, hypertension. FAMILY HISTORY: Reviewed and noncontributory to the case. SOCIAL HISTORY: He denies smoking, use of alcohol, illicit drugs. MEDICATIONS AT HOME: Include insulin noncompliant. ALLERGIES: NO KNOWN DRUG ALLERGIES. REVIEW OF SYSTEMS: Denies any headache, dizziness, chest pain, shortness of breath, abdominal pain, constipation, diarrhea, dysuria, cough, sputum production. PHYSICAL EXAMINATION: GENERAL: The patient is an elderly pleasant male, lying on the bed, in no acute distress. VITAL SIGNS: Blood pressure is 154/84, heart rate is 86 per minute, breathing at the rate of 16 per minute, and temperature is 98.7 degrees Fahrenheit. HEENT: Head is normocephalic and atraumatic. NECK: Supple. There are no carotid bruits. LUNGS: Clear. CARDIOVASCULAR: S1 and S2 audible. No murmurs. ABDOMEN: Soft and nontender. Bowel sounds are present. NEUROLOGIC: Mental status; the patient is awake, alert, and oriented to place, year, person. Speech fluent. Naming and repetition is normal. Memory appears intact. Cranial nerve examination; pupils are 2 mm minimally reactive. Right eye is deviated externally on primary gaze. Extraocular movements are intact. There is no facial asymmetry. Motor examination; tone is normal. Power in the upper extremity on the left is 5/5, on the right is 3-4/5. In the lower extremity it is 3/5 bilaterally. Reflexes are absent. Plantar's downgoing bilaterally. Cerebellar examination; [id number] shows no dysmetria. Gait is deferred at the moment. LABORATORY DATA: Labs reviewed shows WBC of 6.9, hemoglobin of 12.1, hematocrit of 35.4, and platelets of 180. His sodium is 140, potassium 3.9, chloride of 110, carbon dioxide content of 24, BUN of 18, creatinine 1.5 and glucose of 109. His urine shows bacteria many. He had CT scan of the head done, which showed no acute intracranial abnormality. He had x-ray of the right hip, which shows probable chronic subacute fracture right femoral neck. IMPRESSION: 1. Status post altered mental status likely secondary to urinary tract infection, rule out any central etiology. 2. Right hemiparesis rule out any cerebrovascular accident. RECOMMENDATION: 1. Patient will have MRI of the brain without contrast. 2. Patient also to have an electroencephalogram. 3. Patient to be continued on IV antibiotics. 4. Once cleared by ortho, patient to be started on physical therapy. 5. If patient's MRI does show any acute stroke then full stroke workup including carotid Doppler and echocardiogram to be done. 6. If the patient's MRI does show stroke, also consider starting on antiplatelet agent. 7. Please continue with the treatment, supportive care. Thank you for the opportunity to participate in the care of this patient. Toy Kaur MD
--- NOTE | 2017-03-31 13:15 | CARD ---
APPROVED REPORT EXAM: Two-dimensional and M-mode echocardiogram with Doppler and color Doppler. INDICATION Pre-Op UNCONTROLLED HTN/ 2D DIMENSIONS IVSd1.3 (0.7-1.1cm)LVDd4.2 (3.9-5.9cm) PWd1.3 (0.7-1.1cm)LVDs2.9 (2.5-4.0cm) FS (%) 31.1 %LVEF (%)59.2 (>50%) M-Mode DIMENSIONS Aortic Root3.80 (2.2-3.7cm)Aortic Cusp Exc.1.70 (1.5-2.0cm) Aortic Valve AoV Peak Zvfvxalt396.0cm/Arnol Peak GR.12mmHgAI P 1/2 Upoo648or Mitral Valve MV E Aeegzixz30.5cm/sMV A Tulynihv481.0cm/sE/A ratio0.7 TDI Lateral E' Peak V6.82cm/sMedial E' Peak V5.46cm/sE/Lateral E'12.4 E/Medial E'15.5 Pulmonary Valve PV Peak Iwmiqlgk16.7cm/sPV Peak Grad.3mmHg Tricuspid Valve TR Peak Nmwlvsxo969ss/sRAP [id number] Peak Gr.45mmHg [id number] LEFT VENTRICLE The left ventricle is normal size. There is mild concentric left ventricular hypertrophy. The left ventricular function is normal. The left ventricular ejection fraction is within the normal range. There is normal LV segmental wall motion. Transmitral Doppler flow pattern is Grade I-abnormal relaxation pattern. RIGHT VENTRICLE The right ventricle is normal size. There is normal right ventricular wall thickness. The right ventricular systolic function is normal. ATRIA The left atrium size is normal. The right atrium size is normal. AORTIC VALVE The aortic valve is mildly thickened but opens well. There is mild aortic regurgitation. There is no aortic valvular stenosis. MITRAL VALVE The mitral valve is mildly thickened. There is no mitral valve regurgitation noted. TRICUSPID VALVE There is moderate tricuspid regurgitation. There is moderate pulmonary hypertension. GREAT VESSELS The aortic root is normal in size. PERICARDIAL EFFUSION There is no pericardial effusion. <Conclusion> The left ventricle is normal size. There is mild concentric left ventricular hypertrophy. The left ventricular function is normal. The left ventricular ejection fraction is within the normal range. There is normal LV segmental wall motion. Transmitral Doppler flow pattern is Grade I-abnormal relaxation pattern. There is mild aortic regurgitation. There is moderate tricuspid regurgitation. There is moderate pulmonary hypertension.
[2017-03-31] MEDS ORDERED: ePHEDrine 50 mg/ml Inj ONE (13:37)
[2017-03-31] MEDS ORDERED: Propofol 10 mg/ml Inj (20 ML) ONE (13:37)
[2017-03-31] MEDS ORDERED: Cefepime (Maxipime) 1 g Inj IVPB ONE (13:42)
[2017-03-31] MEDS ORDERED: Succinylcholine 200 mg/10 ml Inj IV ONE (13:43)
[2017-03-31] MEDS ORDERED: Phenylephrine 10 mg/ml Inj ONE (13:44)
[2017-03-31] MEDS ORDERED: Etomidate 20 mg/10ml Inj IV ONE (13:47)
[2017-03-31] MEDS ORDERED: Bupivacaine 0.5% Inj(30mL) ONE (14:21)
--- NOTE | 2017-03-31 14:41 | US ---
PROCEDURE: Bilateral renal artery duplex ultrasound. CLINICAL HISTORY: Renal artery stenosis. Uncontrolled hypertension. Evaluate for renovascular hypertension. PHYSICIAN(S): Eliazar Cardona M.D. TECHNIQUE: Duplex sonography with color-flow Doppler was used to evaluate the visualized segments of the main renal arteries. The patient was evaluated in a fasting state. Imaging in a supine and decubitus position was performed. Limited evaluation of the arcuate waveforms and resistive indices were performed. FINDINGS: The exam is limited by body habitus and the patient's inability to cooperate. The kidneys are normal in size, shape, and location. The right kidney measures 9.9cm in length and the left kidney measures 10.0cm in length. No solid renal masses, abnormal calcifications, or hydronephrosis is seen. The main right renal artery is fairly well visualized from the aorta to the hilum. The peak systolic velocity in the right main renal artery is 90 cm/sec. This is consistent with a 0 to 49% stenosis in the main right renal artery. The arcuate waveforms are normal. The resistive index is normal. The main left renal artery is not well visualized.. The peak systolic velocity in the main left renal artery is 46cm/sec. This corresponds to a 0 to 49% stenosis in the main left renal artery. The arcuate waveforms and resistive indices are normal. IMPRESSION: 1. Evaluation of the main renal arteries is somewhat limited, more on the left than the right.. 2. No sonographically significant stenosis is identified. 3. The kidneys are normal and symmetric in size. There are no solid renal masses, abnormal calcifications or hydronephrosis noted.
--- NOTE | 2017-03-31 14:43 | US ---
PROCEDURE: Lower extremity KOSTAS exam HISTORY: Peripheral vascular disease with pain and ulceration. Diabetes. PHYSICIAN(S): Eliazar Cardona MD. FINDINGS: The exam is limited by calcified, noncompressible vessels at multiple levels. Resting ABIs are not obtainable. The PVR waveforms at the low thigh, calf, ankle, and metatarsal levels are relatively normal and symmetric. No obvious significant occlusive disease is appreciated. The brachial pressures are symmetric IMPRESSION: 1. Limited study due to calcification. 2. The PVR waveforms are normal and symmetric at all levels
--- NOTE | 2017-03-31 15:26 | PN ---
DATE: LOCATION: The patient was seen in room 276, bed 2. PHYSICAL EXAMINATION: VITAL SIGNS: T-max 98.7 and pulse is 76 to 89. Blood pressures are 154/84, 199/111, 169/85, and 169/96. Respirations are 20 and O2 sat 97%-100%. HEENT: Head examination normocephalic and atraumatic. HEENT examination shows pinkish pale conjunctivae. No oropharyngeal lesion, questionable soft carotid bruit. CARDIOVASCULAR: S1 and S2, regular rhythm. Questionable soft systolic murmur right second intercostal space, left sternal border. ABDOMEN: Protuberant. Positive bowel sounds. GENITALIA: Male. Positive Mckeon catheter with dirty urine. EXTREMITIES: Shows positive SCDs. Positive swelling of the lower extremity. Positive superficial leg ulceration of the left leg. MUSCULOSKELETAL: Shows a body mass index of 33. VASCULAR: Unable to palpate. Decrease range of motion of the right lower extremity and the right upper extremity. DIAGNOSTIC DATA: On 03/31/2017; WBC is 6.9, hemoglobin and hematocrit 12.1 and 35.4, and platelet 180. Sodium 142, potassium 3.9, chloride 110, CO2 of 24, anion gap 12, BUN 18, creatinine 1.5, GFR 55, glucose 122, lactic acid 1.2, and uric acid 4.2. LFTs are normal. PSA is 8.0, cholesterol 163, LDL 67, HDL 64, TSH 1.83, T4 is 8.4, and free T4 is 1.27. The patient was seen by podiatry. The patient was seen by cardiology. IMPRESSION: 1. Status post fall. 2. Right hip subcapital questionable impact acute versus subacute fracture. 3. Gait dysfunction. 4. Medication noncompliance. 5. Insulin-requiring diabetes mellitus and hypertension. 6. Status post uncontrolled hypertension. 7. Questionable possible urinary tract infection. 8. Leukopenia and anemia. 9. Hypertension. 10. Insulin-requiring diabetes mellitus. 11. Left lower extremity superficial ulceration. 12. Uncontrolled hypertension. 13. Granulocytosis. 14. Acute kidney injury. 15. Uncontrolled insulin-requiring diabetes mellitus with hyperglycemia. 16. Elevated PSA of 8.0. 17. Questionable urinary tract infection with proteinuria, glycosuria, microscopic hematuria, pyuria, and bacteruria. 18. 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 19. Hypertensive cardiovascular disease. 20. Questionable possible bifascicular block with incomplete right bundle-branch block and left anterior hemiblock. 21. Normocytic anemia. 1. Status post fall. 2. Right femoral neck acute versus subacute fracture with nonunion and resorption. 3. Gait dysfunction. 4. Uncontrolled hypertension. 5. Leukopenia with granulocytosis. 6. Mild normocytic anemia. 7. Insulin requiring type 1 diabetes mellitus with hyperglycemia. 8. Questionable urinary tract infection with proteinuria, hematuria, glycosuria, pyuria and bacteriuria. 9. Bibasilar atelectasis and scarring. 10. Small hiatal hernia. 11. Gastroesophageal junction clips, etiology undetermined, with shotty mediastinal lymphadenopathy. 12. Osteopenia. 13. Degenerative joint disease. 14. Left gynecomastia. 15. Partially distended gallbladder with a prominent common bile duct. 16. Pancreatic atrophy. 17. Bilateral adrenal nodules. 18. Bilateral renal cyst. 19. Fecal retention. 20. Questionable cystitis with bladder wall thickening and partially distended urinary bladder and perivesicular inflammation. 21. Prostatomegaly. 22. Right hip subcapital fracture. 23. Right shoulder glenohumeral joint osteoarthritis. 24. Uncontrolled insulin requiring diabetes mellitus with hyperglycemia. 25. 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 26. Mild normocytic anemia. 27. Gait dysfunction. 28. Left lower extremity superficial ulceration. PLAN: At this time, the patient is admitted to telemetry. The patient had been ordered iron studies. Hemoglobin A1c is pending. Hepatitis panel is pending. B12, folate, repeat CMP, and LFTs were ordered. HIV, PSA, and total free pending. Repeat CBC ordered. Blood and urine cultures pending. Consultation with infectious disease, neurology, orthopedics, podiatry, and cardiology. The patient has been also requested to be seen by urology. Procalcitonin level and RPR pending. The patient is seen by podiatry and ordered Bactroban cream to the left leg. The patient is on Cozaar 100 mg daily, Dilaudid 0.5 mg IV q.4 hours p.r.n., heparin 5000 subcutaneously q.8 hours, and Humalog medium dose sliding scale coverage a.c. and at bedtime. The patient is on NPH 10 units twice a day. Lopressor 25 mg twice a day, cefepime 1 g IV q.8 hours, Protonix 40 mg daily, IV fluid 0.9 normal saline 100 mL an hour, and Zofran 4 mg IV q.4 hours. The patient has been ordered ultrasound of abdomen for evaluation of partially distended gallbladder and questionable possibly dilated common bile duct, venous Doppler, arterial Doppler of the lower extremity ordered, and renal arterial Doppler ordered. The patient was seen by neurology. MRI of the brain without contrast ordered. Repeat EKG ordered and echo with Doppler ordered. EEG ordered. The patient is on liquid diet until further orthopedics evaluation. The patient has been ordered fingerstick blood sugar a.c. and at bedtime. Stool for occult blood has been ordered. At present, the patient will be continued on the above therapeutic intervention until further recommendation by all the subspecialty. At present, the patient will be continued on the above therapeutic interventions. Dictated and electronically signed, not read. Eliezer Hanna MD [facility]
[2017-03-31] MEDS ORDERED: Vancomycin 1 g Inj ONE (16:34)
[2017-03-31] MEDS ORDERED: Rocuronium 10 mg/ml (5 ml) ONE (16:36)
[2017-03-31] MEDS ORDERED: Glycopyrrolate 0.2 mg/ml (2ml vial) ONE (16:39)
[2017-03-31] MEDS ORDERED: Neostigmine Methylsulfate 3mg/3ml Syringe IV ONE (16:39)
[2017-03-31] MEDS ORDERED: Lactated Ringer's 1,000 ML IV SCH (16:56)
--- NOTE | 2017-03-31 17:20 | PCM.SURG1 ---
Surgeon's Initial Post Op Note - Surgeon's Notes Surgeon: Ajith Barron MD Plate Straightener: Juan Lynch PA-C Type of Anesthesia: General Endo Anesthesia Administered By: Dr. Koch Pre-Operative Diagnosis: Right femoral neck fx Operative Findings: chronic fx with contracture Post-Operative Diagnosis: same Operation Performed: Right hip bipolar hemiarthroplasty Specimen/Specimens Removed: femoral head Estimated Blood Loss: EBL {In ML}: 150 Blood Products Given: N/A Drains Used: No Drains Post-Op Condition: Fair Date of Surgery/Procedure: 03/31/17 Time of Surgery/Procedure: 17:20
[2017-03-31] MEDS ORDERED: Oxycodone/Acetaminophen 5/325 mg Tab PO PRN (17:21)
[2017-03-31 17:35] LABS: FOLATE 4.1 ng/mL
--- NOTE | 2017-03-31 18:07 | RAD ---
Indication: Patient in PACU, status post right hip bipolar arthroplasty Comparison: Right hip with pelvis radiographs performed 03/30/17 Two views, right hip with pelvis Findings: Osseous demineralization. Degenerative changes. The patient is status post right hip arthroplasty. Alignment appears satisfactory. Soft tissue swelling, subcutaneous emphysema, and surgical jo compatible with recent postoperative history Impression: Status post right hip arthroplasty as above.
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
[2017-03-31] MEDS ORDERED: ceFAZolin 2 GM in Sodium Chloride 0.9% 100 ML IVPB SCH (22:00)
[2017-03-31] MEDS: ceFAZolin 2 GM in Sodium Chloride 0.9% 100 ML IVPB SCH (22:06)
--- NOTE | 2017-03-31 23:29 | CARD ---
APPROVED REPORT EKG Measurement Heart [id number] <Conclusion> Normal sinus rhythm Possible Left atrial enlargement Left anterior fascicular block Nonspecific T wave abnormality Abnormal ECG
--- NOTE | 2017-04-01 00:25 | CARD ---
APPROVED REPORT EKG Measurement Heart [id number] <Conclusion> Poor data quality, interpretation may be adversely affected Normal sinus rhythm Incomplete right bundle branch block Left anterior fascicular block Prolonged QT Abnormal ECG
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
[2017-04-01] MEDS: ceFAZolin 2 GM in Sodium Chloride 0.9% 100 ML IVPB SCH (05:25)
[2017-04-01] MEDS: Cefepime 1gm in NS 100ml 1 GM/100 ML BAG IVPB SCH ×2 (06:00→15:04)
[2017-04-01] MEDS: Sodium Chloride 0.9% 1,000 ML IV SCH ×2 (06:01→20:40)
[2017-04-01] MEDS: Pantoprazole 40 mg EC Tab PO SCH ×2 (06:02→20:16)
[2017-04-01] MEDS: Insulin Human NPH 1 UNITS/0.01 ML SC SCH ×2 (07:03→18:53)
[2017-04-01 07:53] LABS: BASO # 0.01 K/mm3 (0.0-2.0); BASO % 0.1 % (0.0-3.0); GRAN # 6.87 (1.4-6.5); GRAN % 86.8 % (50.0-68.0); HEMATOCRIT 35.4 % (42.0-52.0); LYMPH # 0.4 (1.2-3.4); LYMPH % 4.6 % (22.0-35.0); MEAN CELL VOLUME 85.7 fl (80.0-105.0); MEAN CORPUSCULAR HEMOGLOBIN 29.3 pg (25.0-35.0); MEAN CORPUSCULAR HGB CONC 34.2 g/dl (31.0-37.0); MEAN PLATELET VOLUME 10.8 fl (7.0-11.0); MONO # 0.7 (0.1-0.6); MONO % 8.5 % (1.0-6.0); PLATELET COUNT 137 10^3/uL (120.0-450.0); RED CELL DISTRIBUTION WIDTH 14.2 % (11.5-14.5); WHITE BLOOD COUNT 7.9 10^3/ul (4.5-11.0)
[2017-04-01 08:14] LABS: ALB/GLOB RATIO 0.9 (1.1-1.8); BILIRUBIN,DIRECT 0.4 mg/dL (0.0-0.4); BILIRUBIN,TOTAL 0.8 mg/dL (0.2-1.3); MAGNESIUM 1.8 mg/dL (1.7-2.2); PHOSPHOROUS 4.1 mg/dL (2.5-4.5); POTASSIUM 4.3 mmol/L (3.6-5.0); TOTAL PROTEIN 6.4 g/dL (5.8-8.3)
[2017-04-01 08:39] LABS: ANISOCYTOSIS SLIGHT; BAND 1 % (0-2); NEUTROPHIL 85 % (50.0-70.0); PLATELET ESTIMATE NORMAL (NORMAL)
--- NOTE | 2017-04-01 09:05 | CP.PCM.PN ---
Subjective - Date & Time of Evaluation Date of Evaluation: 04/01/17 Time of Evaluation: 09:02 - Subjective Subjective: Pt awake but confused. Pt non cooperative and refusing temperature check. Exam limited because patient non cooperative R hip dressing clean and dry thigh soft unable to assess neuro status Hg 12.1 POD #1 PT today Objective - Vital Signs/Intake and Output Vital Signs (last 24 hours): Temp Pulse Resp BP Pulse Ox 98.2 F 85 17 167/83 H 98 03/31/17 18:20 03/31/17 22:00 03/31/17 18:20 03/31/17 18:20 03/31/17 18:20 Intake and Output: 04/01/17 04/01/17 06:59 18:59 Intake Total 480 Balance 480 - Medications Medications: Current Medications Clonidine HCl (Catapres) 0.1 mg PO Q6H PRN PRN Reason: FORSBP>=170&/ORDBP>=100MMHG Enoxaparin Sodium (Lovenox) 40 mg SC Q24H [facility] PRN Reason: Protocol Heparin Sodium (Porcine) (Heparin) 5,000 units SC Q8 [facility] PRN Reason: Protocol Last Admin: 03/31/17 01:44 Dose: Not Given Hydromorphone HCl (Dilaudid) 0.5 mg IVP Q4H PRN PRN Reason: Pain, moderate (4-7) Cefepime HCl (Maxipime 1gm) 1 gm in 100 mls @ 100 mls/hr IVPB Q8 [facility] PRN Reason: Protocol Last Admin: 04/01/17 06:00 Dose: 100 mls/hr Sodium Chloride (Sodium Chloride 0.9%) 1,000 mls @ 100 mls/hr IV .Q10H [facility] Last Admin: 04/01/17 06:01 Dose: 100 mls/hr Iron Sucrose 200 mg/ Sodium (Chloride) 110 mls @ 110 mls/hr IVPB DAILY [facility] Stop: 04/02/17 10:59 Last Admin: 03/31/17 13:16 Dose: Not Given Insulin Human Lispro (Humalog Med) 0 units SC ACHS [facility] PRN Reason: Protocol Last Admin: 03/31/17 22:06 Dose: Not Given Insulin Human NPH (Humulin N) 20 units SC ACBD [facility] Metoclopramide HCl (Reglan) 10 mg IV ONCE PRN PRN Reason: Nausea/Vomiting Metoprolol Tartrate (Lopressor) 25 mg PO BRKDIN [facility] Mupirocin (Bactroban Ointment) 0 gm TOP BID [facility] Ondansetron HCl (Zofran Inj) 4 mg IVP Q4H PRN PRN Reason: Nausea/Vomiting Oxycodone/Acetaminophen (Percocet 5/325 Mg Tab) 1 tab PO Q4H PRN PRN Reason: Pain, moderate-SEVERE (5-10) Stop: 04/03/17 17:22 Last Admin: 04/01/17 06:08 Dose: 1 tab Pantoprazole Sodium (Protonix Ec Tab) 40 mg PO 0600,1600 [facility] Last Admin: 04/01/17 06:02 Dose: 40 mg Tamsulosin HCl (Flomax) 0.4 mg PO DAILY [facility] - Labs Labs: 04/01/17 07:30 04/01/17 07:30 PT 10.9 Seconds (9.9-11.8) 03/30/17 17:35 INR 1.01 (0.93-1.08) 03/30/17 17:35 APTT 26.8 Seconds (23.7-30.8) 03/30/17 17:35
[2017-04-01] MEDS: Insulin Lispro (humaLOG) MEDIUM Coverage SC SCH ×4 (10:34→21:37)
--- NOTE | 2017-04-01 10:50 | PN ---
DATE: 04/01/2017 CARDIOLOGY FOLLOWUP SUBJECTIVE: The patient is comfortable, in bed post surgery. OBJECTIVE: VITAL SIGNS: Blood pressure 167/83, heart rate in the 80s. NECK: Negative JVD. LUNGS: Without rales. HEART: S1, S2. EXTREMITIES: Status post surgery. LABORATORY DATA: Hemoglobin is 12.1. Glucose is 229. Echocardiogram reveals good LV function with aortic sclerosis and aortic insufficiency. IMPRESSION 1. Near syncope. 2. Fracture of the hip. 3. Hypertension. 4. Diabetes mellitus. 5. Renal insufficiency. Given these findings, the patient is hemodynamically stable post surgery. We will continue to monitor for the next 24 hours on telemetry. Eliazar Martin MD
--- NOTE | 2017-04-01 14:06 | CP.PCM.PN ---
<Satish Victoria - Last Filed: 04/01/17 13:59> Subjective - Date & Time of Evaluation Date of Evaluation: 04/01/17 Time of Evaluation: 07:00 - Subjective Subjective: Pt was seen and examined at bedside. As per nursing staff, pt had garcia hematuria s/p removal of the cm. Pt has also been agitated and had general complaints of being in the hospital. Pt is s/p rt bipolar hemiarthroplasty POD# 1. Pt refused blood work and has been non-cooperative. Objective - Vital Signs/Intake and Output Vital Signs (last 24 hours): Temp Pulse Resp BP Pulse Ox 98.2 F 85 17 167/83 H 98 03/31/17 18:20 03/31/17 22:00 03/31/17 18:20 03/31/17 18:20 03/31/17 18:20 Intake and Output: 04/01/17 04/01/17 06:59 18:59 Intake Total 480 Balance 480 - Medications Medications: Current Medications Clonidine HCl (Catapres) 0.1 mg PO Q6H PRN PRN Reason: FORSBP>=170&/ORDBP>=100MMHG Haloperidol Lactate (Haldol) 1 mg IVP Q4H PRN; Protocol PRN Reason: Agitation Heparin Sodium (Porcine) (Heparin) 5,000 units SC Q8 [facility] PRN Reason: Protocol Last Admin: 03/31/17 01:44 Dose: Not Given Hydromorphone HCl (Dilaudid) 0.5 mg IVP Q4H PRN PRN Reason: Pain, moderate (4-7) Cefepime HCl (Maxipime 1gm) 1 gm in 100 mls @ 100 mls/hr IVPB Q8 [facility] PRN Reason: Protocol Last Admin: 04/01/17 06:00 Dose: 100 mls/hr Sodium Chloride (Sodium Chloride 0.9%) 1,000 mls @ 100 mls/hr IV .Q10H [facility] Last Admin: 04/01/17 06:01 Dose: 100 mls/hr Insulin Human Lispro (Humalog Med) 0 units SC ACHS [facility] PRN Reason: Protocol Last Admin: 04/01/17 10:34 Dose: Not Given Insulin Human NPH (Humulin N) 20 units SC ACBD [facility] Metoclopramide HCl (Reglan) 10 mg IV ONCE PRN PRN Reason: Nausea/Vomiting Metoprolol Tartrate (Lopressor) 25 mg PO BRKDIN [facility] Last Admin: 04/01/17 10:36 Dose: Not Given Mupirocin (Bactroban Ointment) 0 gm TOP BID [facility] Last Admin: 04/01/17 10:34 Dose: Not Given Ondansetron HCl (Zofran Inj) 4 mg IVP Q4H PRN PRN Reason: Nausea/Vomiting Oxycodone/Acetaminophen (Percocet 5/325 Mg Tab) 1 tab PO Q4H PRN PRN Reason: Pain, moderate-SEVERE (5-10) Stop: 04/03/17 17:22 Last Admin: 04/01/17 06:08 Dose: 1 tab Pantoprazole Sodium (Protonix Ec Tab) 40 mg PO 0600,1600 [facility] Last Admin: 04/01/17 06:02 Dose: 40 mg Polyethylene Glycol (Miralax) 17 gm PO BID [facility] Tamsulosin HCl (Flomax) 0.4 mg PO DAILY [facility] Last Admin: 04/01/17 10:34 Dose: Not Given - Labs Labs: 04/01/17 07:30 04/01/17 07:30 PT 10.9 Seconds (9.9-11.8) 03/30/17 17:35 INR 1.01 (0.93-1.08) 03/30/17 17:35 APTT 26.8 Seconds (23.7-30.8) 03/30/17 17:35 - Constitutional Appears: Confused - Head Exam Head Exam: ATRAUMATIC, NORMAL INSPECTION, NORMOCEPHALIC - Eye Exam Eye Exam: EOMI, Normal appearance, PERRL Pupil Exam: NORMAL ACCOMODATION, PERRL - ENT Exam ENT Exam: Mucous Membranes Moist, Normal Exam - Respiratory Exam Respiratory Exam: Clear to Ausculation Bilateral, NORMAL BREATHING PATTERN - Cardiovascular Exam Cardiovascular Exam: REGULAR RHYTHM, +S1, +S2. absent: Murmur - GI/Abdominal Exam GI & Abdominal Exam: Distended, Normal Bowel Sounds. absent: Tenderness - Extremities Exam Additional comments: b/l booties, ulcers bandaged - Neurological Exam Neurological Exam: Altered, Awake - Psychiatric Exam Psychiatric exam: Agitated Assessment and Plan - Assessment and Plan (Free Text) Assessment: 76African [place] M s/p Rt bipolar hemiarthroplasty POD#1. Pt is being managed for DM2, HTN, UTI/hematuria and intermittent AMS. 1. R Hip fracture s/p fall - s/p Rt bipolar hemiarthroplasty - CT Head showed no acute intracranial changes - CT chest, abd and pelvis showed enlarged prostate but no traumatic changes other than R hip fracture - Motrin PRN 2. UTI/hematuria - afebrile and no leukocytosis, pt refused labs today - cont cefepime 1gm q8 - cm replaced after garcia blood noted, Dr. Dick urology notified - flomax - Nephrology Dr. Nur consulted 3. Pancytopenia - ID consulted - HIV, RPR and hepatitis panels drawn, Negative 4. HTN - clonidine 0.1mg prn - metoprolol 25mg BID 5. DM2 - 10u NPH 0600, 1800 - humalog ISS - FS qACHS - A1C 11.6 - glycomark ordered - wound cultures for LLE lesion - podiatry consulted, recs appreciated - enema prn constipation, reglan 6. Confusion, unknown baseline - Neurology consulted, Psychiatry consulted - fu reccs DVT GI ppx reviewed NS 100 consistent carb diet OOB hold AC 2/2 hematuria <Jacques,Eliezer U - Last Filed: 04/15/17 22:23> Objective - Vital Signs/Intake and Output Vital Signs (last 24 hours): Temp Pulse Resp BP Pulse Ox 97.7 F 78 20 149/72 97 04/04/17 08:14 04/04/17 12:33 04/04/17 08:14 04/04/17 12:33 04/04/17 08:14 - Labs Labs: 04/03/17 07:50 04/03/17 07:50 PT 10.9 Seconds (9.9-11.8) 03/30/17 17:35 INR 1.01 (0.93-1.08) 03/30/17 17:35 APTT 26.8 Seconds (23.7-30.8) 03/30/17 17:35 Attending/Attestation - Attestation I have personally seen and examined this patient.: Yes I have fully participated in the care of the patient.: Yes I have reviewed all pertinent clinical information, including history, physical exam and plan: Yes
--- NOTE | 2017-04-01 14:14 | CP.PCM.PN ---
<Elsie Smith - Last Filed: 04/01/17 14:12> Subjective - Date & Time of Evaluation Date of Evaluation: 04/01/17 Time of Evaluation: 14:12 - Subjective Subjective: 76 y/o male seen at bedside with attending Dr. Rahman for left leg superficial abrasion. Patient refuses trreatment at this time. Patient refuses to answer any questions and asked if we could leave the room. Patient's dressing remains c /d/i. Podiatry will follow up again tomorrow. Objective - Vital Signs/Intake and Output Vital Signs (last 24 hours): Temp Pulse Resp BP Pulse Ox 98.2 F 85 17 167/83 H 98 03/31/17 18:20 03/31/17 22:00 03/31/17 18:20 03/31/17 18:20 03/31/17 18:20 Intake and Output: 04/01/17 04/01/17 06:59 18:59 Intake Total 480 Balance 480 - Medications Medications: Current Medications Clonidine HCl (Catapres) 0.1 mg PO Q6H PRN PRN Reason: FORSBP>=170&/ORDBP>=100MMHG Haloperidol Lactate (Haldol) 1 mg IVP Q4H PRN; Protocol PRN Reason: Agitation Heparin Sodium (Porcine) (Heparin) 5,000 units SC Q8 [facility] PRN Reason: Protocol Last Admin: 03/31/17 01:44 Dose: Not Given Hydromorphone HCl (Dilaudid) 0.5 mg IVP Q4H PRN PRN Reason: Pain, moderate (4-7) Cefepime HCl (Maxipime 1gm) 1 gm in 100 mls @ 100 mls/hr IVPB Q8 [facility] PRN Reason: Protocol Last Admin: 04/01/17 06:00 Dose: 100 mls/hr Sodium Chloride (Sodium Chloride 0.9%) 1,000 mls @ 100 mls/hr IV .Q10H [facility] Last Admin: 04/01/17 06:01 Dose: 100 mls/hr Insulin Human Lispro (Humalog Med) 0 units SC ACHS [facility] PRN Reason: Protocol Last Admin: 04/01/17 10:34 Dose: Not Given Insulin Human NPH (Humulin N) 20 units SC ACBD [facility] Metoclopramide HCl (Reglan) 10 mg IV ONCE PRN PRN Reason: Nausea/Vomiting Metoprolol Tartrate (Lopressor) 25 mg PO BRKDIN [facility] Last Admin: 04/01/17 10:36 Dose: Not Given Mupirocin (Bactroban Ointment) 0 gm TOP BID [facility] Last Admin: 04/01/17 10:34 Dose: Not Given Ondansetron HCl (Zofran Inj) 4 mg IVP Q4H PRN PRN Reason: Nausea/Vomiting Oxycodone/Acetaminophen (Percocet 5/325 Mg Tab) 1 tab PO Q4H PRN PRN Reason: Pain, moderate-SEVERE (5-10) Stop: 04/03/17 17:22 Last Admin: 04/01/17 06:08 Dose: 1 tab Pantoprazole Sodium (Protonix Ec Tab) 40 mg PO 0600,1600 [facility] Last Admin: 04/01/17 06:02 Dose: 40 mg Polyethylene Glycol (Miralax) 17 gm PO BID [facility] Tamsulosin HCl (Flomax) 0.4 mg PO DAILY [facility] Last Admin: 04/01/17 10:34 Dose: Not Given - Labs Labs: 04/01/17 07:30 04/01/17 07:30 PT 10.9 Seconds (9.9-11.8) 03/30/17 17:35 INR 1.01 (0.93-1.08) 03/30/17 17:35 APTT 26.8 Seconds (23.7-30.8) 03/30/17 17:35 <Leona Rahman - Last Filed: 04/03/17 13:13> Objective - Vital Signs/Intake and Output Vital Signs (last 24 hours): Temp Pulse Resp BP Pulse Ox 98.2 F 80 20 134/90 97 04/02/17 16:35 04/03/17 10:13 04/02/17 16:35 04/03/17 10:13 04/02/17 16:35 Intake and Output: 04/03/17 04/03/17 06:59 18:59 Intake Total 1640 Output Total 200 Balance 1440 - Medications Medications: Current Medications Aspirin (Ecotrin) 81 mg PO DAILY [facility] Last Admin: 04/03/17 10:11 Dose: 81 mg Calcium Carbonate (Caltrate) 600 mg PO DAILY [facility] Last Admin: 04/03/17 10:10 Dose: 600 mg Clonidine HCl (Catapres) 0.1 mg PO Q6H PRN PRN Reason: FORSBP>=170&/ORDBP>=100MMHG Ergocalciferol (Drisdol 50,000 Intl Units Cap) 1 cap PO Q7D [facility] Last Admin: 04/02/17 14:38 Dose: 1 cap Famotidine (Pepcid) 20 mg PO 1000,2200 [facility] Last Admin: 04/03/17 10:14 Dose: 20 mg Hydromorphone HCl (Dilaudid) 0.5 mg IVP Q4H PRN PRN Reason: Pain, moderate (4-7) Sodium Chloride (Sodium Chloride 0.9%) 1,000 mls @ 100 mls/hr IV .Q10H [facility] Last Admin: 04/03/17 10:14 Dose: 100 mls/hr Insulin Human Lispro (Humalog Med) 0 units SC ACHS [facility] PRN Reason: Protocol Last Admin: 04/03/17 10:11 Dose: Not Given Insulin Human NPH (Humulin N) 18 units SC ACBD [facility] Metoclopramide HCl (Reglan) 10 mg IV ONCE PRN PRN Reason: Nausea/Vomiting Metoprolol Tartrate (Lopressor) 25 mg PO BRKDIN [facility] Last Admin: 04/03/17 10:13 Dose: 25 mg Mupirocin (Bactroban Ointment) 0 gm TOP BID [facility] Last Admin: 04/03/17 10:10 Dose: 1 applic Ondansetron HCl (Zofran Inj) 4 mg IVP Q4H PRN PRN Reason: Nausea/Vomiting Polyethylene Glycol (Miralax) 17 gm PO BID [facility] Last Admin: 04/03/17 10:13 Dose: 17 gm Risperidone (Risperdal Tab) 0.5 mg PO 0800,1600 [facility] Last Admin: 04/03/17 10:14 Dose: 0.5 mg Risperidone (Risperdal Tab) 1 mg PO HS [facility] Last Admin: 04/02/17 22:27 Dose: 1 mg Tamsulosin HCl (Flomax) 0.4 mg PO DAILY [facility] Last Admin: 04/03/17 10:11 Dose: 0.4 mg Ziprasidone (Geodon Inj) 10 mg IM Q4H PRN PRN Reason: Psychosis - Labs Labs: 04/03/17 07:50 04/03/17 07:50 PT 10.9 Seconds (9.9-11.8) 03/30/17 17:35 INR 1.01 (0.93-1.08) 03/30/17 17:35 APTT 26.8 Seconds (23.7-30.8) 03/30/17 17:35 Attending/Attestation - Attestation I have personally seen and examined this patient.: Yes I have fully participated in the care of the patient.: Yes I have reviewed all pertinent clinical information, including history, physical exam and plan: Yes
--- NOTE | 2017-04-01 15:14 | CP.PCM.PN ---
Subjective - Date & Time of Evaluation Date of Evaluation: 04/01/17 Time of Evaluation: 10:20 - Subjective Subjective: Comfortable, not in distress, afebrile, had arthroplasty of his right hip yesterday. Denies dysuria, no flank pain. Objective - Vital Signs/Intake and Output Vital Signs (last 24 hours): Temp Pulse Resp BP Pulse Ox 98.2 F 85 17 167/83 H 98 03/31/17 18:20 03/31/17 22:00 03/31/17 18:20 03/31/17 18:20 03/31/17 18:20 - Medications Medications: Current Medications Enoxaparin Sodium (Lovenox) 40 mg SC Q24H [facility] PRN Reason: Protocol Heparin Sodium (Porcine) (Heparin) 5,000 units SC Q8 [facility] PRN Reason: Protocol Last Admin: 03/31/17 01:44 Dose: Not Given Hydromorphone HCl (Dilaudid) 0.5 mg IVP Q4H PRN PRN Reason: Pain, moderate (4-7) Cefepime HCl (Maxipime 1gm) 1 gm in 100 mls @ 100 mls/hr IVPB Q8 [facility] PRN Reason: Protocol Last Admin: 04/01/17 06:00 Dose: 100 mls/hr Sodium Chloride (Sodium Chloride 0.9%) 1,000 mls @ 100 mls/hr IV .Q10H [facility] Last Admin: 04/01/17 06:01 Dose: 100 mls/hr Iron Sucrose 200 mg/ Sodium (Chloride) 110 mls @ 110 mls/hr IVPB DAILY [facility] Stop: 04/02/17 10:59 Last Admin: 03/31/17 13:16 Dose: Not Given Cefazolin Sodium 2 gm/ Sodium (Chloride) 100 mls @ 100 mls/hr IVPB 0625,2225 [facility] PRN Reason: Protocol Stop: 04/01/17 07:24 Last Admin: 04/01/17 05:25 Dose: 100 mls/hr Insulin Human Lispro (Humalog Med) 0 units SC ACHS [facility] PRN Reason: Protocol Last Admin: 03/31/17 22:06 Dose: Not Given Insulin Human NPH (Humulin N) 10 units SC Q12H [facility] Last Admin: 04/01/17 07:03 Dose: 10 units Losartan Potassium (Cozaar) 100 mg PO DAILY [facility] Last Admin: 03/31/17 13:13 Dose: 100 mg Metoclopramide HCl (Reglan) 10 mg IV ONCE PRN PRN Reason: Nausea/Vomiting Metoprolol Tartrate (Lopressor) 25 mg PO BRKDIN [facility] Mupirocin (Bactroban Ointment) 0 gm TOP BID [facility] Ondansetron HCl (Zofran Inj) 4 mg IVP Q4H PRN PRN Reason: Nausea/Vomiting Oxycodone/Acetaminophen (Percocet 5/325 Mg Tab) 1 tab PO Q4H PRN PRN Reason: Pain, moderate-SEVERE (5-10) Stop: 04/03/17 17:22 Last Admin: 04/01/17 06:08 Dose: 1 tab Pantoprazole Sodium (Protonix Ec Tab) 40 mg PO 0600,1600 [facility] Last Admin: 04/01/17 06:02 Dose: 40 mg - Labs Labs: 03/31/17 05:15 03/31/17 05:15 PT 10.9 Seconds (9.9-11.8) 03/30/17 17:35 INR 1.01 (0.93-1.08) 03/30/17 17:35 APTT 26.8 Seconds (23.7-30.8) 03/30/17 17:35 - Constitutional Appears: Non-toxic, No Acute Distress - Head Exam Head Exam: NORMAL INSPECTION - Neck Exam Neck Exam: absent: Meningismus - Respiratory Exam Respiratory Exam: Decreased Breath Sounds - Cardiovascular Exam Cardiovascular Exam: +S1, +S2 - GI/Abdominal Exam GI & Abdominal Exam: Soft. absent: Tenderness Assessment and Plan - Assessment and Plan (Free Text) Plan: Assessment urinary frequency and hesitancy, consider prostatic conditions such as benign prostatic hyperplasia; no evidence of UTI currently with urine cx negative ( taken prior to antibiotics given) right hip femoral neck fracture S/P hemiarthroplasty POD #1 DM HTN obesity with BMI 33 Plan suggest Urology evaluation will monitor off antibiotics since he is at risk for nosocomial infections
--- NOTE | 2017-04-01 15:15 | CON ---
DATE: 04/01/2017 REASON FOR CONSULTATION: Acute kidney injury. HISTORY OF PRESENT ILLNESS: A 76-year-old male previously unknown to me admitted on 03/30/2017 after an episode of near syncope. The patient was admitted after a fall at home. As per the patient he fell out of bed at night. He complained of right hip pain. He was found to have right hip femoral fracture. He had the right hip replacement done yesterday. He is very agitated today. As per the nursing staff he has been slight feisty. He had a bladder scan done, which revealed increased urine volume. Mckeon catheter was just placed. He is draining cloudy urine at this point. Consultation was requested for acute kidney injury since his creatinine has risen from 1.1 on 03/30/2017 to 2.1 today. The patient is not able to give any history at this point. PAST MEDICAL AND SURGICAL HISTORY: NIDDM, hypertension, obesity, syncope, and BPH. FAMILY HISTORY: Noncontributory. SOCIAL HISTORY: No smoking, no alcohol use, no IV drug abuse. ALLERGIES: NO KNOWN DRUG ALLERGIES. MEDICATIONS AT HOME: Not documented. CURRENT MEDICATIONS: Dilaudid 0.5 mg q.4 hours p.r.n., Flomax 0.4, heparin, iron sucrose 200 mg IV piggyback, Lopressor, cefepime 1 g q.8 hours, MiraLax, Percocet, Protonix, Reglan, normal saline at 100, and Zofran. REVIEW OF SYSTEMS: Unavailable as the patient is unable to cooperate with systems review. PHYSICAL EXAMINATION: GENERAL: Morbidly obese elderly male lying in bed. Vital signs: Blood pressure 167/83, heart rate 72, respiratory rate 17, and temperature 98.2. HEENT: Normocephalic, atraumatic. NECK: Supple, no JVD. LUNGS: Bilateral equal air entry. No rales or wheezing. CARDIAC: S1 and S2. Regular rate and rhythm. No murmur, no rub. ABDOMEN: Obese, distended, soft, nontender, bowel sounds present. EXTREMITIES: Chronic stasis changes, thick leathery skin, no edema. INTAKE AND OUTPUT: Not charted. LABORATORY DATA: WBC 7.9, hemoglobin 12, hematocrit 35, and platelets 137. Sodium 139, potassium 4.3, chloride 107, CO2 21, BUN 33, creatinine 2.1, glucose 247, calcium 8.0, phosphorus 4.1, magnesium 1.8, iron 46, saturation 20, ferritin 187, albumin 3.1, and corrected calcium is 8.6. INR 1.10. Urinalysis, yellow cloudy, pH 7.5, specific gravity 1.020, protein 30, glucose 1000, blood moderate, RBCs too numerous to count, WBCs too numerous to count. Wound culture, gram-positive cocci. Urine culture no growth. Renal artery Doppler, no sonographic evidence of renal artery stenosis, normal sized kidneys, symmetrical. ASSESSMENT: 1. Acute kidney injury superimposed on chronic kidney disease stage 2? 2. Status post syncopal episode. 3. Right hip fracture. 4. Status post right hip replacement, postoperative day #1. 5. Urinary retention. 6. History of benign prostatic hypertrophy. 7. ?Urinary tract infection. PLAN 1. Repeat urinalysis. 2. Repeat urine culture. 3. Monitor urine output closely, now with a Mckeon. 4. Continue IV fluids. 5. Avoid nephrotoxins. 6. Discontinue iron hemoglobin this 12 at this time, oral iron is adequate. Check intact PTH levels. Check vitamin D levels. Thank you for the courtesy of this consultation. We will follow this patient closely with you. Brunilda Argueta MD
[2017-04-01] MEDS ORDERED: Enoxaparin 40 mg Syringe SC SCH (16:00)
--- NOTE | 2017-04-01 17:53 | PN ---
DATE: 04/01/2017 SUBJECTIVE: The patient is lying on the bed in no acute distress, slightly uncooperative. PHYSICAL EXAMINATION VITAL SIGNS: Blood pressure is 167/83, heart rate is 85 per minute, beating at the rate of 16 per minute, and temperature is 98.2 degrees Fahrenheit. HEENT: Head is normocephalic and atraumatic. NECK: Supple. There are no carotid bruits. LUNGS: Clear. CARDIOVASCULAR: S1 and S2 audible. No murmurs. ABDOMEN: Soft and nontender. Bowel sounds are present. NEUROLOGIC: Mental status: The patient is awake and alert, oriented to self. He is not following commands. Cranial nerve examination; pupils are 3 mm, nonreactive. Extraocular movements are intact. The right eye is literally deviated on primary gaze. There is no facial asymmetry. He is moving all 4 extremities; however, appears to move right side less than the left. Plantars are downgoing bilaterally. LABORATORY DATA: Labs reviewed, shows WBC of 7.9, hemoglobin of 12.1, hematocrit of 35.4 and platelets of 137. Sodium is 139, potassium is 4.3, chloride 107, carbon dioxide 21, BUN of 32, creatinine of 2.1, and glucose of 247. He had an electroencephalogram done, which is abnormal consistent with mild bihemispheric cerebral dysfunction. IMPRESSION: 1. Altered mental status, possible toxic metabolic encephalopathy. 2. Right hemiparesis, rule out any cerebrovascular accident. RECOMMENDATIONS: 1. The patient did have MRI of the brain without contrast. 2. The patient to be continued on IV antibiotics. 3. The patient to be given p.r.n. Haldol for his agitation. 4. Please continue the treatment and supportive care. Thank you for the opportunity to participate in the care of this patient. Toy Kaur MD
[2017-04-01] MEDS: POLYETHYLENE GLYCOL 3350 17 GM/Dose PACKET PO SCH (20:16)
[2017-04-01 20:24] LABS: TOTAL PSA 9.2 ng/mL (<=4.0)
--- NOTE | 2017-04-01 22:56 | EEG ---
ELECTROENCEPHALOGRAM REPORT DATE: INTRODUCTION: This is a digitally recorded EEG monitoring using standard EEG montages. BACKGROUND RHYTHM: The EEG shows a background activity of 7 Hertz theta activity in parieto-occipital region. The EEG activity is bilaterally symmetrical and synchronous. Moderate amount of myogenic artifact noticed in this EEG recording. ABNORMAL POTENTIALS: No spike, sharp waves or focal slowing was seen. Photic stimulation and hypoventilation, photic stimulation did not reveal any abnormality. Hyperventilation was not performed. IMPRESSION: Abnormal electroencephalogram. The above findings are consistent with mild bihemispheric cerebral dysfunction. No epileptiform activities seen in this electroencephalogram recording. Toy Kaur MD MTDMary
--- NOTE | 2017-04-01 23:13 | CON ---
PSYCHIATRIC CONSULTATION HISTORY OF PRESENT ILLNESS: The patient is a 76-year-old -[place] male who was brought to emergency room by family after having fallen out of his bed. I reviewed the chart, reviewed the consultants reports and lab work and medications and history. I also spoke at length with the patient's daughter and the patient's son with whom he lives. The patient reportedly has been noticed to be thinking and acting irrationally over the past 2 to 3 years. He has refused any medical care or tests for any medical problems, refuses to see a doctor. The patient after being admitted to the hospital was noted to be quite agitated and uncooperative with nursing staff. This morning, he was given Haldol IM to calm him down, and today was first time the patient allowed the nursing staff to attend him without being agitated. The patient was found to have a hip fracture and had surgical repair yesterday. PAST MEDICAL HISTORY: The patient's past history includes diabetes mellitus, hypertension, obesity and more recently possible urinary tract infection and prostatitis. The patient also has a history, approximately 3 years ago, of what sounds like a psychotic episode where he was in a local mall and became very paranoid and agitated and convinced that the [employer] was trying to steal his possession and money. The patient was taken on an emergency basis to the [facility], treated there and however, signed out against medical advice after short period of time. The patient has subsequently refused to see a psychiatrist or other physicians since that time. SOCIAL HISTORY: The patient has no history of alcohol or substance abuse according to family. PERSONAL HISTORY: He has 2 children. He is separate. He lives with the son in [place], although his official address is in [place], [place]. LABORATORY DATA: The patient's current laboratory data is as follows. His white count is currently 7900, hemoglobin 12.1, hematocrit 35.4 and platelet count 137,000. The patient's metabolic profile: Sodium 139, potassium 4.3, chloride 107, CO2 of 21, anion gap 15, BUN 33, creatinine 2.1, estimated GFR 38, glucose of 276 and calcium 8.0. Rest of profile all within normal range. The patient has had normal B12 and folate level. Elevated PSA of 8.0 yesterday. He has had thyroid profile also within normal range. HOSPITAL COURSE: The patient has had a surgical procedure this morning on his hip with the right hip hemiarthroplasty. The patient prior to that had a CT scan of the abdomen testing pelvis; findings include enlarged prostate with bladder wall thickening and a subacute right hip fracture and a distended bladder. The patient also has had a x-ray of his tibia and fibula, which was unremarkable. The patient's x-ray of hip and pelvis showed right hip arthroplasty as above with surgical jo. The patient has had a renal artery duplex ultrasound showing normal kidneys, shape and size without masses. The renal artery was well visualized, the left renal artery was not well visualized. The patient has had wound cultures which have shown gram-positive cocci, urine cultures were negative after 24 hours. MEDICATIONS: The patient's current medications are as follows: He has as ordered heparin, Protonix, Humalog insulin protocol. He is on p.r.n. Dilaudid; has been ordered for p.r.n. Zofran, he has had; has also an order for IV Reglan which he has not had. He has refused other medications including Lopressor. He did have 1 tablet this morning of Percocet 5/325. He has an order for p.r.n. Catapres, Flomax which he did not have as of yet. He has an order for Humulin insulin 20 units twice a day. The patient had a dose of Cozaar, Motrin, Maxipime, Norvasc, Dilaudid. The patient also had 1 mg IVP of Haldol earlier this morning. PHYSICAL EXAMINATION VITAL SIGNS: His blood pressure most recently 167/83, pulse 72, respirations 17 per minute and afebrile. O2 saturation 98%. PSYCHIATRIC: Mental status which is being impended to by nursing staff reveals he is cooperative with formal mental status. When I ask basic questions in terms of orientation, his answer is "don't ask me those questions anymore." He is somewhat argumentative and disorganized, and he is somewhat confused. REVIEW OF SYSTEMS: The patient refuses to cooperative, although he claims he does not have any pain. 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 The patient is status post hip fracture, status post fall; history of hypertension, diabetes mellitus and urinary tract infection. PLAN: We will order appropriate antipsychotic medicine and we will discuss at length with nursing staff and monitor mental status. Christiano Nichole MD [facility]
[2017-04-02] MEDS: Sodium Chloride 0.9% 1,000 ML IV SCH ×3 (02:00→12:44)
--- NOTE | 2017-04-02 02:24 | PN ---
DATE: 04/01/2017 TIME SEEN: The patient was seen around 11:30 a.m., around 12:00 noon. The patient Nurses' notes were reviewed. The patient has been agitated, combative, refusing medication, refusing vital signs, refusing nursing care. The patient's Mckeon catheter was removed by the orthopedic's PA. The patient was noted to have bloody urine and hematuria after that. The patient was found to be combative and refusing all care. The patient was seen with the nurse practitioner. PHYSICAL EXAMINATION: GENERAL: The patient was seen. The patient was screaming. VITAL SIGNS: T-max is 98.2. Telemetry shows sinus rhythm. Heart rate 70s, 80s. Blood pressures averaging around 150 to 160 systolic, diastolic of 80s and 70s, O2 sat 98%. Intake output does not appear to be documented correctly. HEENT: Head examination, normocephalic and atraumatic. Shows pinkish conjunctivae. Anicteric sclerae. No oropharyngeal lesion. NECK: No neck rigidity. CHEST: Kyphosis. LUNGS: Shows no rales, crackles or wheezing. CARDIOVASCULAR: S1 and S2, regular rhythm. ABDOMEN: Protuberant, distended, dense. Positive dullness in the suprapubic area. GENITALIA: Male. Mckeon catheter removed. The patient was noted to have some bloody urine on the urethra. Positive right hip surgical dressing noted. EXTREMITIES: Shows positive SCDs. Decreased range of motion of the right lower extremity. NEUROLOGIC: The patient is confused, agitated, combative, screaming and yelling. LABORATORY DATA: WBC is 7.9, hemoglobin and hematocrit 12.1 and 35.4, and platelet 137, granulocytes 87%. Sodium 139, potassium 4.3, chloride 107, CO2 of 21, anion gap 15, BUN 33, creatinine 2.1, GFR 38, glucose 247, hemoglobin A1c 11.6. Lactic acid 1.2, uric acid was 4.2. Calcium 8.0, phosphorus 4.1, magnesium 1.8, iron 46, TIBC 235, iron saturation 20, erythropoietin 18, ferritin 187. LFTs are normal. PSA is 8.0, B12 6453, folate 4.1, TSH 1.83, T4 is 8.4, total PSA 9.2, percent free PSA 13, which is low. Prostate cancer was 28. Urine microalbumin 347, RPR nonreactive. Hepatitis A, B, C serologies negative. HIV negative. Wound cultures Gram positive cocci from the left leg ulcer. Blood type B negative. Tibia fibula x-rays negative. Renal artery Doppler, no sonographic significant stenosis. Abdominal ultrasound shows bilateral renal cyst. The patient's postoperative right hip x-ray shows status post right hip arthroplasty. The patient's echocardiogram noted. EKG shows sinus rhythm, right bundle branch block, left anterior hemiblock. The patient was seen by Neurology, Orthopedics, Infectious Disease. The patient yesterday underwent right hip surgery. IMPRESSION: 1. Status post fall. 2. Right hip femoral neck fracture. 3. Status post right hip hemiarthroplasty postop day 1. 4. Possible delirium. 5. Questionable behavioral disorder. 6. Left ventricular ejection fraction of 59%. 7. Concentric left ventricular hypertrophy. 8. Mild aortic regurgitation. 9. Moderate tricuspid regurgitation with moderate pulmonary arterial hypertension with right ventricular systolic pressure of 55 mmHg. 10. 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 11. Bilateral renal cyst. 12. Hypertension. 13. Leukopenia. 14. Anemia and granulocytosis. 15. Uncontrolled type 1 insulin-requiring diabetes mellitus with hyperglycemia and hemoglobin A1c of 11.6. 16. Elevated PSA of 8.0. 17. Deconditioning. 18. Acute kidney injury with underlying chronic kidney disease stage 2. 19. Hematuria. 20. Proteinuria, glycosuria, hematuria, pyuria, bacteruria. 21. Proteinuria and microalbuminuria. 22. Left leg Gram positive cocci, left leg cellulitis and ulceration. 23. Bilateral renal cortical cyst. 24. Questionable benign prostatic hypertrophy. 25. Questionable hemorrhagic cystitis. 26. Deconditioning. 27. Gait dysfunction. 28. Questionable urinary retention. 29. Questionable constipation. 30. Toxic metabolic encephalopathy. 31. Questionable right-sided hemiparesis. 32. Questionable syncope versus near syncope. 33. Questionable urinary tract infection. 34. Questionable right-sided weakness. 35. Colonic fecal stasis. 36. Bibasilar atelectasis, scarring. 37. Small hiatal hernia. 38. Osteopenia with degenerative joint disease. 39. Left gynecomastia. 40. Pancreatic atrophy. 41. Bilateral adrenal nodule. 42. Mild bladder wall thickening. 43. Perivesicular inflammation. 44. Prostatomegaly. 45. Right hip subcapital fracture. 1. Status post fall. 2. Right femoral neck acute versus subacute fracture with nonunion and resorption. 3. Gait dysfunction. 4. Uncontrolled hypertension. 5. Leukopenia with granulocytosis. 6. Mild normocytic anemia. 7. Insulin requiring type 1 diabetes mellitus with hyperglycemia. 8. Questionable urinary tract infection with proteinuria, hematuria, glycosuria, pyuria and bacteriuria. 9. Bibasilar atelectasis and scarring. 10. Small hiatal hernia. 11. Gastroesophageal junction clips, etiology undetermined, with shotty mediastinal lymphadenopathy. 12. Osteopenia. 13. Degenerative joint disease. 14. Left gynecomastia. 15. Partially distended gallbladder with a prominent common bile duct. 16. Pancreatic atrophy. 17. Bilateral adrenal nodules. 18. Bilateral renal cyst. 19. Fecal retention. 20. Questionable cystitis with bladder wall thickening and partially distended urinary bladder and perivesicular inflammation. 21. Prostatomegaly. 22. Right hip subcapital fracture. 23. Right shoulder glenohumeral joint osteoarthritis. 24. Uncontrolled insulin requiring diabetes mellitus with hyperglycemia. 25. 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 26. Mild normocytic anemia. 27. Gait dysfunction. 28. Left lower extremity superficial ulceration. PLAN: At this time, the patient has been consulted with Infectious Disease, Nephrology, Neurology, Orthopedics, Podiatry, Cardiology, Urology, and Psychiatry. The patient's current medications are Bactroban cream to the affected area by Podiatry, Clonidine 0.1 mg q. 6 hours p.r.n. The patient was ordered a Fleet enema x1 stat, Flomax 0.1 mg daily, Geodon ordered 10 mg IM q. 4 p.r.n. by Psychiatry, heparin 5000 subcutaneous q. 8 is on hold because of hematuria, Humalog medium dose sliding scale coverage a.c. and at bedtime. The patient's insulin has been adjusted to 20 units with breakfast and dinner, Lopressor 25 mg twice a day, MiraLax 17 gm twice a day, Percocet 5/325 one tab q. 4 p.r.n., Protonix 40 mg daily, Risperdal 0.5 mg 8 a.m., 4 p.m. and Risperdal 1 mg at bedtime. The patient was still on IV fluid 0.9 normal saline at 100 mL an hour, and Zofran 4 mg IV q.4 p.r.n. MRI of the brain ordered by Neurology. Heart healthy diet. The patient has been ordered fingerstick. The patient's Mckeon is reinserted. The patient has been ordered stool for occult blood. The patient's case has been referred to case management who have met with the patient's family regarding discharge details and recommendations to subacute rehab. We will await evaluation by physical therapy. The patient refused physical therapy evaluation today. At present, the patient is to be continued on above therapeutic interventions with monitoring of the patient's clinical condition, neurological condition with close followup with all the subspecialty. Dictated and electronically signed, not read. Eliezer Hanna MD [facility]
--- NOTE | 2017-04-02 05:21 | CON ---
DATE: 04/01/2017 CHIEF COMPLAINT: Hip fracture. HISTORY OF PRESENT ILLNESS: This is a 76-year-old male who is brought to the emergency room by his family for generalized weakness and difficulty walking. The patient fell few days prior to the emergency room visit. He was complaining of difficulty moving his leg. The patient was found to have a hip fracture and subsequently underwent surgery. The patient had a Mckeon catheter in place, which was removed this morning. After removing the Mckeon catheter, some gross bleeding was noted from the patient's penis. consultation was requested. There is a questionable history of BPH. On speaking with the patient, he is awake, alert, in no acute distress. He is answering questions, although seems to be a poor historian. He reports prior to this admission, he had been voiding well. He has no history of prostate cancer. He reports good urinary stream with no straining. He denies any history of dysuria or prior gross hematuria. He does report mild urinary frequency and has a baseline of nocturia 1 to 2 times per night. PAST MEDICAL HISTORY: Hip fracture, anemia, hypertension, gait dysfunction, questionable BPH, osteopenia and arthritis. Denies diabetes. MEDICATIONS: Currently include Catapres, Dilaudid, Flomax, Geodon, heparin, insulin coverage, Lopressor, MiraLax, Percocet, Protonix, Reglan, Risperdal, and Zofran. ALLERGIES: NO KNOWN DRUG ALLERGIES. FAMILY HISTORY: Noncontributory towards his urologic issues. SOCIAL HISTORY: Denies smoking or EtOH use. REVIEW OF SYSTEMS: A 12-point review of systems was obtained. Positives per the HPI. Other systems are negative according to the patient; however, he does appear to be a poor historian, and given his medications, there may be some psychiatric history. PHYSICAL EXAMINATION: GENERAL: The patient is awake and alert. He is in no acute distress. He is answering questions. His nurse is present in the room. He is afebrile. VITAL SIGNS: Temperature was 98.2, BP 167/83, pulse currently 80. NECK: Supple. There is no adenopathy. CHEST: Reveals normal inspiratory effort. CARDIAC: Showed a positive S1 and S2. EXTREMITIES: There is some lower extremity edema noted. ABDOMEN: Soft, nontender, and nondistended. Mildly obese. There is no costovertebral angle tenderness. There is no suprapubic tenderness or fullness noted. GENITOURINARY: Phallus is normal. Scrotum is normal. Testes are bilaterally distended, nontender. No masses. Epididymis are normal. There is some dried blood at the urethral meatus. LABORATORY DATA: On laboratory exam, WBC's at 7.9 and hemoglobin 12.1. GFR of 38. GFR on admission was greater than 60. BUN has gone upto 33 from 19. Urinalysis from 03/30 showed moderate blood, positive for glucose, positive for protein, too numerous to count rbc's, too numerous to count wbc's, negative nitrites. Blood cultures showed no growth. Urine culture showed less than a 1000 CFU/mL. There is a wound culture positive for gram-positive cocci. On radiologic exam, the patient had a chest, abdomen and pelvis CT scan 2 days ago, which showed enlarged prostate with bladder wall thickening, subacute right hip fracture, bladder was partially distended. There was mild bladder wall thickening. There were bilateral renal cysts. The kidneys and ureters were otherwise unremarkable. There is also an abdominal ultrasound done yesterday, which showed no hydronephrosis. There were bilateral renal cysts. The patient also had a renal artery duplex done which showed no significant stenosis was identified. Evaluation of the main renal artery which was somewhat limited. IMPRESSION AND PLAN: This is a 76-year-old male status post repair of the subacute right hip fracture. He is also growing gram-positive cocci from a left leg wound. Urologically, the patient has history of enlarged prostate on imaging studies. He is currently on tamsulosin. He had a Mckeon catheter in place which was removed this morning. He is not distended at this point, and he reports no difficulty voiding in the past; however, the patient is an unreliable historian. Urologically, the plan for now will be to continue him on Flomax. I probably would have left the Mckeon catheter in place as the patient is not ambulatory at this point; however, it has been removed for a voiding trial, and we will observe him. For now, if the patient is unable to void in approximately 8 hours, I would replace the Mckeon catheter. If the patient is uncomfortable, trying to void and cannot before that point, I would recommend replacing the Mckeon catheter. If the patient is not uncomfortable and is able to void, we can follow him conservatively on Flomax. We will need to get further pertinent history from his family. The patient is voiding well. We will follow him conservatively. For now, he does appear to have component of prerenal azotemia, his GFR was normal on admission. His BUN has gone up and his GFR has gone down, I would recommend some IV fluids or a nephrology consultation. The patient had a renal Doppler, which did not show any significant stenosis, but does not appear to be obstructive, as there is no hydronephrosis and the Mckeon catheter was in place and draining until this morning. Thank you for allowing us to participate in the care of this patient. We will continue to follow him with you. Christiano Saunders MD
--- NOTE | 2017-04-02 07:12 | EEG ---
HISTORY: History of near syncope. CONDITION OF THE RECORDING: Awake and drowsy. DESCRIPTION: Background activity of this tracing composed of 8 cycles per second alpha-like activity, small amount of beta activity, 16 to 20 cycles per second was noted in the tracing. Theta activity 5 to 7 cycles per second was noted in this tracing. Drowsiness was composed of mixed beta and theta activity. Photic stimulation does not change the recording. No paroxysmal activity was seen in the record. IMPRESSION: Borderline normal EEG. Tristan Walsh MD
[2017-04-02 07:44] LABS: BASO # 0.01 K/mm3 (0.0-2.0); BASO % 0.1 % (0.0-3.0); EOS % 0.4 % (1.5-5.0); GRAN # 6.6 (1.4-6.5); GRAN % 79.2 % (50.0-68.0); HEMATOCRIT 29.9 % (42.0-52.0); LYMPH # 0.7 (1.2-3.4); LYMPH % 8.3 % (22.0-35.0); MEAN CELL VOLUME 85.2 fl (80.0-105.0); MEAN CORPUSCULAR HEMOGLOBIN 28.5 pg (25.0-35.0); MEAN CORPUSCULAR HGB CONC 33.4 g/dl (31.0-37.0); MEAN PLATELET VOLUME 10.1 fl (7.0-11.0); RED CELL DISTRIBUTION WIDTH 14.4 % (11.5-14.5); WHITE BLOOD COUNT 8.3 10^3/ul (4.5-11.0)
[2017-04-02 07:58] LABS: ALB/GLOB RATIO 0.9 (1.1-1.8); BILIRUBIN,DIRECT 0.2 mg/dL (0.0-0.4); BILIRUBIN,TOTAL 0.6 mg/dL (0.2-1.3); CALCIUM 7.5 mg/dL (8.4-10.5); MAGNESIUM 1.9 mg/dL (1.7-2.2); PHOSPHOROUS 3.3 mg/dL (2.5-4.5); POTASSIUM 4.1 mmol/L (3.6-5.0); TOTAL PROTEIN 5.4 g/dL (5.8-8.3)
[2017-04-02] MEDS: Insulin Lispro (humaLOG) MEDIUM Coverage SC SCH ×5 (08:36→22:00)
[2017-04-02] MEDS: Insulin Human NPH 1 UNITS/0.01 ML SC SCH ×2 (08:46→17:33)
--- NOTE | 2017-04-02 09:03 | CP.PCM.PN ---
Subjective - Date & Time of Evaluation Date of Evaluation: 04/02/17 Time of Evaluation: 09:02 - Subjective Subjective: Pt more awake today. Afebrile R hip: dressing clean and intact pt able to wiggle toes today sensory grossly intact Hg 10 POD#2 PT, OOB today Objective - Vital Signs/Intake and Output Vital Signs (last 24 hours): Temp Pulse Resp BP Pulse Ox 98.2 F 98 H 22 118/62 97 04/02/17 05:42 04/02/17 08:35 04/02/17 05:42 04/02/17 08:35 04/02/17 05:42 Intake and Output: 04/02/17 04/02/17 06:59 18:59 Intake Total 1540 Output Total 525 Balance 1015 - Medications Medications: Current Medications Clonidine HCl (Catapres) 0.1 mg PO Q6H PRN PRN Reason: FORSBP>=170&/ORDBP>=100MMHG Hydromorphone HCl (Dilaudid) 0.5 mg IVP Q4H PRN PRN Reason: Pain, moderate (4-7) Sodium Chloride (Sodium Chloride 0.9%) 1,000 mls @ 100 mls/hr IV .Q10H FOR[facility], [facility] Last Admin: 04/02/17 05:58 Dose: 100 mls/hr Insulin Human Lispro (Humalog Med) 0 units SC ACHS [facility]1983 PRN Reason: Protocol Last Admin: 04/02/17 08:42 Dose: 5 units Insulin Human NPH (Humulin N) 20 units SC ACBD [facility]1983 Last Admin: 04/02/17 08:46 Dose: 20 units Metoclopramide HCl (Reglan) 10 mg IV ONCE PRN PRN Reason: Nausea/Vomiting Metoprolol Tartrate (Lopressor) 25 mg PO BRKDIN [facility] Last Admin: 04/02/17 08:35 Dose: 25 mg Mupirocin (Bactroban Ointment) 0 gm TOP BID [facility] Last Admin: 04/01/17 19:00 Dose: Not Given Ondansetron HCl (Zofran Inj) 4 mg IVP Q4H PRN PRN Reason: Nausea/Vomiting Oxycodone/Acetaminophen (Percocet 5/325 Mg Tab) 1 tab PO Q4H PRN PRN Reason: Pain, moderate-SEVERE (5-10) Stop: 04/03/17 17:22 Last Admin: 04/01/17 06:08 Dose: 1 tab Pantoprazole Sodium (Protonix Ec Tab) 40 mg PO 0600,1600 [facility] Last Admin: 04/01/17 20:16 Dose: Not Given Polyethylene Glycol (Miralax) 17 gm PO BID [facility] Last Admin: 04/01/17 20:16 Dose: Not Given Risperidone (Risperdal Tab) 0.5 mg PO 0800,1600 [facility] Last Admin: 04/02/17 08:35 Dose: 0.5 mg Risperidone (Risperdal Tab) 1 mg PO HS [facility] Last Admin: 04/02/17 00:14 Dose: 1 mg Tamsulosin HCl (Flomax) 0.4 mg PO DAILY [facility] Last Admin: 04/01/17 10:34 Dose: Not Given Ziprasidone (Geodon Inj) 10 mg IM Q4H PRN PRN Reason: Psychosis - Labs Labs: 04/02/17 07:00 04/02/17 07:00 PT 10.9 Seconds (9.9-11.8) 03/30/17 17:35 INR 1.01 (0.93-1.08) 03/30/17 17:35 APTT 26.8 Seconds (23.7-30.8) 03/30/17 17:35
[2017-04-02] MEDS: POLYETHYLENE GLYCOL 3350 17 GM/Dose PACKET PO SCH ×2 (11:15→17:31)
--- NOTE | 2017-04-02 11:38 | IP.NPCORE ---
Clinical Quality Measures - CQM - Stroke Antithrombotic Contraindication Medical Reason: No (time of s/s unknown) Anticoagulation Contraindication Medical Reason: Yes Lipid Contraindication Medical Reason: No (LDL 67 no statin) Antithrombotic Contraindications: Risk for Bleeding - CQM - VTE Did patient receive overlap therapy during hosptialization?: No If no, please select a reason why?: Use of Anticoagulants Surgical Overlap Therapy Reason during Hospitalization: s/p right hip orif heparin 5000 q8h Is patient being discharged on overlap therapy?: No
--- NOTE | 2017-04-02 11:48 | PN ---
DATE: 04/02/2017 NEUROLOGY PROGRESS NOTE SUBJECTIVE: The patient is lying on the bed, in no acute distress. He denies having any headache or dizziness. PHYSICAL EXAMINATION: VITAL SIGNS: His blood pressure is 118/62, heart rate is 98 per minute, breathing at a rate of 16 per minute, temperature is 98.2 degree Fahrenheit. HEENT: Normocephalic and atraumatic. NECK: Supple. There are no carotid bruits. LUNGS: Clear. CARDIOVASCULAR: S1 and S2 audible. No murmurs. ABDOMEN: Soft and nontender. Bowel sounds are present. NEUROLOGIC: Mental Status: The patient is awake, alert, oriented to time, place, and person. Speech is fluent. Naming and repetition is normal. Memory and cognition are intact. Cranial nerve examination: Pupils are 2 mm bilaterally reactive to light. Extraocular movements are intact. The right eye is literally deviated on primary gaze. There is right hemiparesis noted with power about 3/5 in the right upper extremity and power 4/5 in the left upper extremity. Plantars downgoing bilaterally. LABORATORY DATA: Reviewed. EEG, which is abnormal consistent with mild bihemispheric cerebral dysfunction. His labs shows WBC of 8.3, hemoglobin of 10.0, hematocrit 29.9, and platelets of 93,000. IMPRESSION: 1. Status post altered mental status, likely toxic metabolic encephalopathy. 2. Right hemiparesis, possible cerebrovascular accident. RECOMMENDATION: 1. Patient will have MRI of the brain without contrast. 2. Patient's mental status is better. 3. Patient to be continued on IV antibiotics. 4. Patient to be started on aspirin if MRI of the brain does show any acute infarct. 5. Patient continue supportive care and treatment. Thank you for the opportunity to participate in the care of this patient. Toy Kaur MD
--- NOTE | 2017-04-02 12:02 | CP.PCM.PN ---
<TiffanieTam thompson - Last Filed: 04/02/17 12:27> Subjective - Date & Time of Evaluation Date of Evaluation: 04/02/17 Time of Evaluation: 11:59 - Subjective Subjective: Medicine Progress note. Dr. Hanna Pt seen and examined at bedside. No acute events overnight. Patient was agitated yesterday, as per nursing staff he slept through the night and has been much more pleasant today. Patient c/o decreased strength in right arm. Denies any CP/SOB. No F/C. No N/V/D. No Abd pain. No headaches Objective - Vital Signs/Intake and Output Vital Signs (last 24 hours): Temp Pulse Resp BP Pulse Ox 98.3 F 72 20 117/62 97 04/02/17 11:55 04/02/17 11:55 04/02/17 11:55 04/02/17 11:55 04/02/17 05:42 Intake and Output: 04/02/17 04/02/17 06:59 18:59 Intake Total 1540 Output Total 525 Balance 1015 - Medications Medications: Current Medications Aspirin (Ecotrin) 81 mg PO DAILY [facility] Clonidine HCl (Catapres) 0.1 mg PO Q6H PRN PRN Reason: FORSBP>=170&/ORDBP>=100MMHG Famotidine (Pepcid) 20 mg PO 1000,2200 [facility] Last Admin: 04/02/17 11:15 Dose: 20 mg Heparin Sodium (Porcine) (Heparin) 5,000 units SC Q8 [facility] PRN Reason: Protocol Hydromorphone HCl (Dilaudid) 0.5 mg IVP Q4H PRN PRN Reason: Pain, moderate (4-7) Sodium Chloride (Sodium Chloride 0.9%) 1,000 mls @ 100 mls/hr IV .Q10H [facility] Last Admin: 04/02/17 05:58 Dose: 100 mls/hr Insulin Human Lispro (Humalog Med) 0 units SC ACHS [facility] PRN Reason: Protocol Last Admin: 04/02/17 08:42 Dose: 5 units Insulin Human NPH (Humulin N) 20 units SC ACBD [facility] Last Admin: 04/02/17 08:46 Dose: 20 units Metoclopramide HCl (Reglan) 10 mg IV ONCE PRN PRN Reason: Nausea/Vomiting Metoprolol Tartrate (Lopressor) 25 mg PO BRKDIN [facility] Last Admin: 04/02/17 08:35 Dose: 25 mg Mupirocin (Bactroban Ointment) 0 gm TOP BID [facility] Last Admin: 04/01/17 19:00 Dose: Not Given Ondansetron HCl (Zofran Inj) 4 mg IVP Q4H PRN PRN Reason: Nausea/Vomiting Oxycodone/Acetaminophen (Percocet 5/325 Mg Tab) 1 tab PO Q4H PRN PRN Reason: Pain, moderate-SEVERE (5-10) Stop: 04/03/17 17:22 Last Admin: 04/01/17 06:08 Dose: 1 tab Polyethylene Glycol (Miralax) 17 gm PO BID [facility] Last Admin: 04/02/17 11:15 Dose: 17 gm Risperidone (Risperdal Tab) 0.5 mg PO 0800,1600 [facility] Last Admin: 04/02/17 08:35 Dose: 0.5 mg Risperidone (Risperdal Tab) 1 mg PO HS [facility] Last Admin: 04/02/17 00:14 Dose: 1 mg Tamsulosin HCl (Flomax) 0.4 mg PO DAILY [facility] Last Admin: 04/02/17 11:15 Dose: 0.4 mg Ziprasidone (Geodon Inj) 10 mg IM Q4H PRN PRN Reason: Psychosis - Labs Labs: 04/02/17 07:00 04/02/17 07:00 PT 10.9 Seconds (9.9-11.8) 03/30/17 17:35 INR 1.01 (0.93-1.08) 03/30/17 17:35 APTT 26.8 Seconds (23.7-30.8) 03/30/17 17:35 - Constitutional Appears: Well, No Acute Distress, Confused - Head Exam Head Exam: ATRAUMATIC, NORMOCEPHALIC - Eye Exam Eye Exam: EOMI - ENT Exam ENT Exam: Mucous Membranes Moist - Neck Exam Neck Exam: Full ROM - Respiratory Exam Respiratory Exam: Clear to Ausculation Bilateral, NORMAL BREATHING PATTERN. absent: Rales, Rhonchi, Wheezes - Cardiovascular Exam Cardiovascular Exam: RRR. absent: JVD - GI/Abdominal Exam GI & Abdominal Exam: Soft. absent: Distended, Firm, Guarding, Rigid, Tenderness - Extremities Exam Extremities Exam: absent: Calf Tenderness Additional comments: right hip dressing clean, dry and intact. LE Sensory grossly intact bilaterally. - Back Exam Back Exam: NORMAL INSPECTION - Neurological Exam Neurological Exam: Alert, Awake, Oriented x3 - Psychiatric Exam Psychiatric exam: Normal Affect, Normal Mood - Skin Skin Exam: Dry, Intact, Normal Color, Warm Assessment and Plan - Assessment and Plan (Free Text) Assessment: 76yo M s/p Rt hip ORIF hemiarthroplasty on 03/31/17. Pt is being managed for DM2, HTN, UTI/hematuria, R-sided weakness, and intermittent AMS. 1. R Hip fracture s/p fall s/p Rt hip ORIF hemiarthroplasty CT Head showed no acute intracranial changes CT Chest, Abd and Pelvis showed enlarged prostate but no traumatic changes other than R hip fracture Pain management 2. UTI/hematuria/Probable MAZIN afebrile and no leukocytosis cm replaced after garcia blood noted yesterday Urology following flomax Nephrology Dr. Nur consulted ID following Repeat Urine Cx NS@100 3. AMS, Confusion, unknown baseline, right-sided weakness Neurology following Awaiting MRI Brain Psychiatry following Risperidone Geodon prn 4. Thrombocytopenia Switch Protonix to Pepcid Avoid anticoagulation 5. Hx of HTN clonidine 0.1mg prn metoprolol 25mg BID 6. Hx of DM2 Increase basal insulin today. 25U Bid Humalog ISS FS qACHS HbA1C 11.6 glycomark ordered wound cultures for LLE lesion - coag negative staph podiatry consulted, recs appreciated 7. PPx consistent carb diet Pepcid OOBTC hold anticoagulation 2/2 hematuria and thrombocytopenia SCDs Discussed case with Dr. Jacques Moreno PGY1 <Eliezer Hanna U - Last Filed: 04/15/17 22:24> Objective - Vital Signs/Intake and Output Vital Signs (last 24 hours): Temp Pulse Resp BP Pulse Ox 97.7 F 78 20 149/72 97 04/04/17 08:14 04/04/17 12:33 04/04/17 08:14 04/04/17 12:33 04/04/17 08:14 - Labs Labs: 04/03/17 07:50 04/03/17 07:50 PT 10.9 Seconds (9.9-11.8) 03/30/17 17:35 INR 1.01 (0.93-1.08) 03/30/17 17:35 APTT 26.8 Seconds (23.7-30.8) 03/30/17 17:35 Attending/Attestation - Attestation I have personally seen and examined this patient.: Yes I have fully participated in the care of the patient.: Yes I have reviewed all pertinent clinical information, including history, physical exam and plan: Yes
--- NOTE | 2017-04-02 13:08 | RAD ---
HISTORY: r/o aspiration COMPARISON: 03/30/2017 FINDINGS: LUNGS: No active pulmonary disease. PLEURA: No significant pleural effusion identified, no pneumothorax apparent. CARDIOVASCULAR: Mild cardiomegaly and aortic tortuosity OSSEOUS STRUCTURES: No significant abnormalities. VISUALIZED UPPER ABDOMEN: Normal. OTHER FINDINGS: None. IMPRESSION: No active disease.
--- NOTE | 2017-04-02 13:18 | PN ---
DATE: 04/02/2017 SUBJECTIVE: The patient is working with physical therapy. No shortness of breath. No chest pain. OBJECTIVE: VITAL SIGNS: Heart rate is in the 80s. Blood pressure is 118/62. NECK: Negative JVD. LUNGS: Without rales. HEART: S1, S2. EXTREMITIES: Without edema. LABORATORY DATA: BUN/creatinine is 40/1.8, hemoglobin is 10. IMPRESSION: 1. Status post hip fracture repair. 2. Diabetes mellitus. 3. Status post fall. 4. Hypertension. 5. Renal insufficiency. PLAN: Given these findings, we will discontinue telemetry today. Continue his medications for his blood pressure and his diabetes. The patient will need extensive physical therapy. Eliazar Martin MD
[2017-04-02] MEDS ORDERED: Ergocalciferol 50,000 Intl Units Cap PO SCH (13:45)
--- NOTE | 2017-04-02 13:59 | PN ---
SUBJECTIVE: The patient is a 76-year-old -[place] male who was admitted to the hospital following a fall and sustained a fracture of his right hip. The patient upon admission had been highly agitated and cooperative and somewhat irrational. The patient today suddenly developed inability to move right-sided upper and lower extremity. The patient's mental status reveals he is awake; he is alert; he is oriented to place, month and year. He is cooperative with nursing staff; however, judgment and insight are quite impaired, does not have clear idea of the nature of his medical problem. The patient slept through the night. He was started on Risperdal, no adverse effects from that medication. MEDICATIONS: The patient's current medication is as follows: It includes Risperdal 0.5 mg b.i.d. and 1 mg at bedtime; p.r.n. Dilaudid; p.r.n. Catapres; 81 mg aspirin; Flomax as in order, p.r.n. Geodon which he has not received; insulin protocol; heparin 5000 units subcu q.8 h., he is on 20 units of NPH insulin morning and evening. The patient is receiving Lopressor, Pepcid, MiraLax, p.r.n. Percocet; he has an order for IV Reglan p.r.n. LABORATORY DATA: The patient's current laboratory data; his white count is 8300, hemoglobin of 10.0, hematocrit 29.9 and platelet count 93,000. The patient's metabolic profile: His electrolytes are all within normal range. Anion gap 8, BUN 40, creatinine 1.8, estimated GFR 45, random glucose of 227, calcium 7.5, albumin is 2.5. He has a PSA of 12.3. The patient had an EEG yesterday, the results of which showed borderline normal EEG. PHYSICAL EXAMINATION: VITAL SIGNS: Blood pressure is 118/62, pulse 98, afebrile, respirations 20, and O2 saturation reportedly 97% on room air. IMPRESSION: Fracture of right femoral neck. The patient is status post surgical repair of hip. He has chronic psychosis, etiology to be determined. He has possible mild dementia. The patient has sudden onset of right-sided weakness of the upper and lower extremity. PLAN: The patient to have MRI after shower. The patient to continue Risperdal 0.5 mg b.i.d. and 1 mg at bedtime. We will continue to monitor mental status. Christiano Nichole MD
--- NOTE | 2017-04-02 15:03 | PN ---
DATE: 04/02/2017 SUBJECTIVE: The patient is seen lying in bed. He is awake. He is alert. Son is at bedside. He denies any shortness of breath. He denies any pain. PHYSICAL EXAMINATION: GENERAL: Elderly male lying in bed. VITAL SIGNS: Blood pressure 117/62, heart rate 72, respiratory rate 20, and temperature 98.3. HEENT: Normocephalic, atraumatic, positive pallor. NECK: Supple, no JVD. LUNGS: Bilateral equal air entry, no rales. CARDIAC: S1 and S2. Regular rate and rhythm. No murmur, no rub. ABDOMEN: Obese, distended, soft, nontender, bowel sounds present. EXTREMITIES: Chronic stasis changes, wrinkling of the skin. INTAKE AND OUTPUT: 2019/525. LABORATORY DATA: WBC 8.3, hemoglobin 10, hematocrit 29.9, and platelets 93. Sodium 135, potassium 4.1, chloride 107, CO2 24, BUN 40, creatinine 1.8, glucose 227, calcium 7.5, phosphorus 3.1, magnesium 1.9, albumin 2.5, corrected calcium is 8.5. PSA is 12.3. Vitamin D is 18.9. PTH is pending. Urine culture, no growth. Would culture, coagulase-negative Staph. Chest x-ray, no active disease. CURRENT MEDICATIONS: Bactroban, Catapres patch #1, Dilaudid, Ecotrin, Flomax, Geodon, insulin, Lopressor 25 b.i.d., MiraLax, Pepcid, oxycodone, Reglan, Risperdal, normal saline at 100; currently on hold, Zofran, insulin, heparin, and cefepime. ASSESSMENT: 1. Acute kidney injury, creatinine slowly improving. 2. Suspect underlying chronic renal disease stage II. 3. Status post syncope. 4. Right hip fracture, status post hip replacement, postoperative day #2. 5. Benign prostatic hypertrophy. 6. Hypocalcemia, hypovitaminosis D. PLAN: 1. Continue IV fluids. 2. Supplement vitamin D. 3. Followup repeat urinalysis and urine culture. 4. Avoid nephrotoxins. 5. Monitor urine output closely. 6. Monitor daily labs. Brunilda Argueta MD [facility] # [id number]
--- NOTE | 2017-04-02 20:57 | PN ---
DATE: 04/02/2017 LOCATION: The patient is seen lying in the bed in room 276, bed #2. SUBJECTIVE: Overnight nurse's notes were reviewed. The patient yesterday was agitated, yelling, screaming, but the patient is much calmer today. The patient was seen by psychiatry. The patient was ordered Geodon and Risperdal. The patient appeared to be more cooperative and calm today. The patient at present is not screaming or yelling. We were able to examine the patient with significantly less difficulty. Overnight nurse's notes were reviewed. The patient's vital signs were reviewed which are as per the vital signs section on the [facility] and as per the medical technologist chemistry note. The patient's telemetry monitoring was sinus rhythm, no arrhythmias noted. Blood pressure was noted. PHYSICAL EXAMINATION: GENERAL: The patient is seen lying in the bed. HEAD EXAMINATION: Normocephalic, atraumatic. HEENT: Examination shows pinkish conjunctivae. Dry oral mucosa. No neck rigidity. CHEST: Examination kyphosis. Positive occasional rhonchi upper lung quiros noted anteriorly. CARDIOVASCULAR: Examination S1, S2, regular rhythm. Positive systolic murmur, right second intercostal space left sternal border, left second intercostal space. ABDOMEN: Much less protuberant, less distended today, but still protuberant. GENITALIA: Male. Positive Mckeon catheter. Positive right hip surgical dressing noted. EXTREMITIES: Shows positive SCDs. NEUROLOGIC: There is weakness of the right upper extremity and right lower extremity. Neurologically, the patient is alert, awake, responsive. Follows simple commands. Appears to be more cooperative. DIAGNOSTICS: Diagnostics from 04/02/2017 noted. The patient was seen by urologist, Dr. Saunders; psychiatrist, Dr. Nichole. The patient was also seen by infectious disease, cardiology, neurology. Their recommendations were noted. IMPRESSION AND PLAN 1. Right femoral subcapital fracture. 2. Status post right hip and right femur hemiarthroplasty. 3. Status post syncope and fall. 4. Questionable psychosis with schizophrenia and schizoaffective disorder. 5. Possible postop delirium. 6. Questionable behavioral disorder. 7. Uncontrolled insulin requiring diabetes mellitus with hemoglobin A1c of greater than 11. 8. Status post uncontrolled hypertension. 9. Anemia. 10. Acute kidney injury (resolving). 11. Underlying chronic kidney disease, stage II/III. 12. Elevated prostate-specific antigen of greater than 8 and 10. 13. Thrombocytopenia, etiology undetermined. 14. Gait dysfunction. 15. Right-sided weakness, etiology undetermined. 16. Questionable cerebral infarct versus transient ischemic attack. 17. History of hypertension and insulin requiring diabetes mellitus with severe noncompliance. 18. Obesity with elevated body mass index. 19. Colonic fecal stasis. 20. Degenerative joint disease. 21. Questionable and possible dementia. 22. Left leg diabetic ulceration with infection and skin structure infection. 23. Questionable syncope versus near syncope. 24. Questionable noncompliance and poor compliance. 1. Status post fall. 2. Right hip femoral neck fracture. 3. Status post right hip hemiarthroplasty postop day 1. 4. Possible delirium. 5. Questionable behavioral disorder. 6. Left ventricular ejection fraction of 59%. 7. Concentric left ventricular hypertrophy. 8. Mild aortic regurgitation. 9. Moderate tricuspid regurgitation with moderate pulmonary arterial hypertension with right ventricular systolic pressure of 55 mmHg. 10. 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 11. Bilateral renal cyst. 12. Hypertension. 13. Leukopenia. 14. Anemia and granulocytosis. 15. Uncontrolled type 1 insulin-requiring diabetes mellitus with hyperglycemia and hemoglobin A1c of 11.6. 16. Elevated PSA of 8.0. 17. Deconditioning. 18. Acute kidney injury with underlying chronic kidney disease stage 2. 19. Hematuria. 20. Proteinuria, glycosuria, hematuria, pyuria, bacteruria. 21. Proteinuria and microalbuminuria. 22. Left leg Gram positive cocci, left leg cellulitis and ulceration. 23. Bilateral renal cortical cyst. 24. Questionable benign prostatic hypertrophy. 25. Questionable hemorrhagic cystitis. 26. Deconditioning. 27. Gait dysfunction. 28. Questionable urinary retention. 29. Questionable constipation. 30. Toxic metabolic encephalopathy. 31. Questionable right-sided hemiparesis. 32. Questionable syncope versus near syncope. 33. Questionable urinary tract infection. 34. Questionable right-sided weakness. 35. Colonic fecal stasis. 36. Bibasilar atelectasis, scarring. 37. Small hiatal hernia. 38. Osteopenia with degenerative joint disease. 39. Left gynecomastia. 40. Pancreatic atrophy. 41. Bilateral adrenal nodule. 42. Mild bladder wall thickening. 43. Perivesicular inflammation. 44. Prostatomegaly. 45. Right hip subcapital fracture. 1. Status post fall. 2. Right femoral neck acute versus subacute fracture with nonunion and resorption. 3. Gait dysfunction. 4. Uncontrolled hypertension. 5. Leukopenia with granulocytosis. 6. Mild normocytic anemia. 7. Insulin requiring type 1 diabetes mellitus with hyperglycemia. 8. Questionable urinary tract infection with proteinuria, hematuria, glycosuria, pyuria and bacteriuria. 9. Bibasilar atelectasis and scarring. 10. Small hiatal hernia. 11. Gastroesophageal junction clips, etiology undetermined, with shotty mediastinal lymphadenopathy. 12. Osteopenia. 13. Degenerative joint disease. 14. Left gynecomastia. 15. Partially distended gallbladder with a prominent common bile duct. 16. Pancreatic atrophy. 17. Bilateral adrenal nodules. 18. Bilateral renal cyst. 19. Fecal retention. 20. Questionable cystitis with bladder wall thickening and partially distended urinary bladder and perivesicular inflammation. 21. Prostatomegaly. 22. Right hip subcapital fracture. 23. Right shoulder glenohumeral joint osteoarthritis. 24. Uncontrolled insulin requiring diabetes mellitus with hyperglycemia. 25. 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 26. Mild normocytic anemia. 27. Gait dysfunction. 28. Left lower extremity superficial ulceration. Plan at this time, the patient's is to be continued on IV antibiotics, IV fluid. The patient will be maintained on an indwelling Mckeon catheter as per neurology recommendations. The patient has been started on Risperdal and Geodon by Dr. Nichole. The patient's Lovenox and heparin will be discontinued because of thrombocytopenia. The patient's Protonix will be changed to Pepcid for thrombocytopenia. The patient will be continued on IV fluid, IV antibiotics. The patient will be ordered suction of the oropharynx every 2 hours. Chest x-ray will be ordered to check for any aspiration. The patient will be ordered out of bed to chair. The patient will be considered for discontinuing telemetry to be moved in front of the nursing station if stable. At present, the patient's MAR has been reviewed. The patient has been ordered serial labs. Current consultation; orthopedics, Dr. Gilmore; cardiology, Dr. Mratin; neurology, Dr. Toy Kaur; nephrology, Dr. Argueta and Dr. Angeles; psychiatry, Dr. Nichole. The patient has also been referred to case management, TCU, physical therapy, occupational therapy, out of bed to chair ordered. The patient's lab data will be reviewed. The patient's further management will be dependent upon the patient's clinical condition, hemodynamic status and as per the patient response to therapeutic intervention and the patient's response to above. In addition, the patient's further disposition and discharge planning and clearance will be dependent upon the patient's clearance from all the consulted standpoint and if the patient stable. The patient most likely will require either short-term or long-term rehab depending upon the physical therapy evaluation and the patient possibly should be considered for possible long-term placement with 24 hours care and supervision if acceptable to the patient's family. The patient's case is referred to case management for discharge plan. The patient's condition, diagnosis, treatment plan, management plan has been discussed with the patient's son yesterday with the medical technologist chemistry. Dictated and electronically signed, not read. Eliezer Hanna MD MTDD
--- NOTE | 2017-04-02 21:33 | PN ---
DATE: 04/02/2017 SUBJECTIVE: The patient seen earlier this morning, in no acute distress, nontoxic. PHYSICAL EXAMINATION: VITAL SIGNS: Temperature is 98, blood pressure 117/60, respiratory rate of 20, heart rate of 76. HEENT: Unremarkable. NECK: Supple. LUNGS: Decreased breath sounds. HEART: Normal S1 and S2. ABDOMEN: Soft and nontender. LABORATORY DATA: Reveals a white count of 8.3, hemoglobin of 10, platelets of 93. Chemistries reveals a BUN of 40, creatinine of 1.8, and procalcitonin is noted and urinalysis is noted. Serology is noted. Microbiology reveals the left leg coag negative Staph. Review of orders are noted. ASSESSMENT AND PLAN: This is a 76-year-old male seen earlier this morning with urinary frequency and hesitancy prostatic disease, benign prostatic hypertrophy versus hyperplasia. No evidence of urinary tract infection. Urine culture is negative off of antibiotics. Currently off of antibiotics already and the patient for urology evaluation, Dr. Eliazar Martin's note is reviewed. We will follow with you. The patient is at risk for developing nosocomial infections. Jose Jennings MD
[2017-04-03] MEDS: Sodium Chloride 0.9% 1,000 ML IV SCH ×2 (01:56→10:14)
[2017-04-03 08:08] LABS: BASO # 0.01 K/mm3 (0.0-2.0); BASO % 0.1 % (0.0-3.0); EOS # 0.2 (0.0-0.7); EOS % 2.5 % (1.5-5.0); GRAN # 6.14 (1.4-6.5); GRAN % 77.6 % (50.0-68.0); HEMATOCRIT 28.1 % (42.0-52.0); LYMPH # 0.7 (1.2-3.4); LYMPH % 9.3 % (22.0-35.0); MEAN CELL VOLUME 84.1 fl (80.0-105.0); MEAN CORPUSCULAR HEMOGLOBIN 28.7 pg (25.0-35.0); MEAN CORPUSCULAR HGB CONC 34.2 g/dl (31.0-37.0); MEAN PLATELET VOLUME 9.7 fl (7.0-11.0); MONO # 0.8 (0.1-0.6); MONO % 10.5 % (1.0-6.0); WHITE BLOOD COUNT 7.9 10^3/ul (4.5-11.0)
[2017-04-03 08:20] LABS: ALB/GLOB RATIO 0.8 (1.1-1.8); ALKALINE PHOSPHATASE 63 U/L (38-126); ALT/SGPT 39 U/L (7-56); AST/SGOT 63 U/L (17-59); BILIRUBIN,DIRECT 0.3 mg/dL (0.0-0.4); BILIRUBIN,TOTAL 0.6 mg/dL (0.2-1.3); BLOOD UREA NITROGEN 30 mg/dL (7-21); CALCIUM 7.7 mg/dL (8.4-10.5); CARBON DIOXIDE 22 mmol/L (21-33); CHLORIDE 109 mmol/L (95-110); GFR AFRICAN-AMERICAN > 60; GLUCOSE,RANDOM 68 mg/dL (70-110); MAGNESIUM 1.9 mg/dL (1.7-2.2); PHOSPHOROUS 2.4 mg/dL (2.5-4.5); POTASSIUM 3.7 mmol/L (3.6-5.0); SODIUM 137 mmol/L (132-148); TOTAL PROTEIN 5.5 g/dL (5.8-8.3)
[2017-04-03] MEDS: Insulin Human NPH 1 UNITS/0.01 ML SC SCH ×2 (08:32→17:59)
[2017-04-03] MEDS: Insulin Lispro (humaLOG) MEDIUM Coverage SC SCH ×3 (10:11→22:00)
[2017-04-03] MEDS: POLYETHYLENE GLYCOL 3350 17 GM/Dose PACKET PO SCH ×2 (10:13→18:01)
--- NOTE | 2017-04-03 10:58 | CP.PCM.PN ---
<TiffanieTam thompson - Last Filed: 04/03/17 11:12> Subjective - Date & Time of Evaluation Date of Evaluation: 04/03/17 Time of Evaluation: 09:12 - Subjective Subjective: Medicine Progress note. Dr. Hanna Pt seen and examined at bedside. No acute events overnight. Denies any complaints. No N/V/D. No abd pain. Fingerstick BS low this AM, improved after juice. Clear mentation this morning around 7AM, however, agitated later around 9AM. Objective - Vital Signs/Intake and Output Vital Signs (last 24 hours): Temp Pulse Resp BP Pulse Ox 98.2 F 80 20 134/90 97 04/02/17 16:35 04/03/17 10:13 04/02/17 16:35 04/03/17 10:13 04/02/17 16:35 Intake and Output: 04/03/17 04/03/17 06:59 18:59 Intake Total 1640 Output Total 200 Balance 1440 - Medications Medications: Current Medications Aspirin (Ecotrin) 81 mg PO DAILY [facility] Last Admin: 04/03/17 10:11 Dose: 81 mg Calcium Carbonate (Caltrate) 600 mg PO DAILY [facility] Last Admin: 04/03/17 10:10 Dose: 600 mg Clonidine HCl (Catapres) 0.1 mg PO Q6H PRN PRN Reason: FORSBP>=170&/ORDBP>=100MMHG Ergocalciferol (Drisdol 50,000 Intl Units Cap) 1 cap PO Q7D [facility] Last Admin: 04/02/17 14:38 Dose: 1 cap Famotidine (Pepcid) 20 mg PO 1000,2200 [facility] Last Admin: 04/03/17 10:14 Dose: 20 mg Hydromorphone HCl (Dilaudid) 0.5 mg IVP Q4H PRN PRN Reason: Pain, moderate (4-7) Sodium Chloride (Sodium Chloride 0.9%) 1,000 mls @ 100 mls/hr IV .Q10H [facility] Last Admin: 04/03/17 10:14 Dose: 100 mls/hr Insulin Human Lispro (Humalog Med) 0 units SC ACHS [facility] PRN Reason: Protocol Last Admin: 04/03/17 10:11 Dose: Not Given Insulin Human NPH (Humulin N) 18 units SC ACBD [facility] Metoclopramide HCl (Reglan) 10 mg IV ONCE PRN PRN Reason: Nausea/Vomiting Metoprolol Tartrate (Lopressor) 25 mg PO BRKDIN [facility] Last Admin: 04/03/17 10:13 Dose: 25 mg Mupirocin (Bactroban Ointment) 0 gm TOP BID [facility] Last Admin: 04/03/17 10:10 Dose: 1 applic Ondansetron HCl (Zofran Inj) 4 mg IVP Q4H PRN PRN Reason: Nausea/Vomiting Polyethylene Glycol (Miralax) 17 gm PO BID [facility] Last Admin: 04/03/17 10:13 Dose: 17 gm Risperidone (Risperdal Tab) 0.5 mg PO 0800,1600 [facility] Last Admin: 04/03/17 10:14 Dose: 0.5 mg Risperidone (Risperdal Tab) 1 mg PO HS [facility] Last Admin: 04/02/17 22:27 Dose: 1 mg Tamsulosin HCl (Flomax) 0.4 mg PO DAILY [facility] Last Admin: 04/03/17 10:11 Dose: 0.4 mg Ziprasidone (Geodon Inj) 10 mg IM Q4H PRN PRN Reason: Psychosis - Labs Labs: 04/03/17 07:50 04/03/17 07:50 PT 10.9 Seconds (9.9-11.8) 03/30/17 17:35 INR 1.01 (0.93-1.08) 03/30/17 17:35 APTT 26.8 Seconds (23.7-30.8) 03/30/17 17:35 - Constitutional Appears: Well, No Acute Distress - Head Exam Head Exam: ATRAUMATIC, NORMAL INSPECTION, NORMOCEPHALIC - Eye Exam Eye Exam: EOMI - ENT Exam ENT Exam: Mucous Membranes Moist - Neck Exam Neck Exam: Full ROM - Respiratory Exam Respiratory Exam: Clear to Ausculation Bilateral, NORMAL BREATHING PATTERN. absent: Rales, Rhonchi, Wheezes - Cardiovascular Exam Cardiovascular Exam: RRR. absent: JVD - GI/Abdominal Exam GI & Abdominal Exam: Soft. absent: Distended, Firm, Guarding, Rigid, Tenderness - Extremities Exam Extremities Exam: Full ROM, Normal Inspection. absent: Calf Tenderness - Neurological Exam Neurological Exam: Alert, Altered, Awake - Psychiatric Exam Psychiatric exam: Agitated - Skin Skin Exam: Dry, Intact, Normal Color, Warm Assessment and Plan - Assessment and Plan (Free Text) Assessment: 76yo M s/p Rt hip ORIF hemiarthroplasty on 03/31/17. Pt is being managed for DM2, HTN, UTI/hematuria, R-sided weakness, and intermittent AMS. 1. R Hip fracture s/p fall s/p Rt hip ORIF hemiarthroplasty CT Head showed no acute intracranial changes CT Chest, Abd and Pelvis showed enlarged prostate but no traumatic changes other than R hip fracture Pain management 2. UTI/hematuria/Probable MAZIN afebrile and no leukocytosis cm replaced after garcia blood noted Urology following: November d/c cm and monitor urine output Flomax Nephrology following Creatinine improving NS@100 ID following Repeat Urine Cx patient is off antibiotics 3. AMS, Confusion; unknown baseline, right-sided weakness Neurology following EEG - mild bihemispheric cerebral dysfunction. No epileptiform changes Awaiting MRI Brain Psychiatry following Risperidone Geodon prn 4. Thrombocytopenia Switch Protonix to Pepcid Avoid anticoagulation f/u hematology workup as ordered Consulted Heme/Onc, Dr. Armas, appreciate recs 5. Hx of HTN clonidine 0.1mg prn metoprolol 25mg BID 6. Hx of DM2 Hypoglycemic this AM Basal insulin decreased back down to NPH 18U SC BID Humalog ISS FS qACHS HbA1C 11.6 glycomark ordered wound cultures for LLE lesion - coag negative staph podiatry consulted, recs appreciated 7. PPx consistent carb diet Pepcid OOBTC hold anticoagulation 2/2 hematuria and thrombocytopenia SCDs Discussed case with Dr. Jacques Moreno PGY1 <Eliezer Hanna U - Last Filed: 04/15/17 22:24> Objective - Vital Signs/Intake and Output Vital Signs (last 24 hours): Temp Pulse Resp BP Pulse Ox 97.7 F 78 20 149/72 97 04/04/17 08:14 04/04/17 12:33 04/04/17 08:14 04/04/17 12:33 04/04/17 08:14 - Labs Labs: 04/03/17 07:50 04/03/17 07:50 PT 10.9 Seconds (9.9-11.8) 03/30/17 17:35 INR 1.01 (0.93-1.08) 03/30/17 17:35 APTT 26.8 Seconds (23.7-30.8) 03/30/17 17:35 Attending/Attestation - Attestation I have personally seen and examined this patient.: Yes I have fully participated in the care of the patient.: Yes I have reviewed all pertinent clinical information, including history, physical exam and plan: Yes
--- NOTE | 2017-04-03 11:33 | CP.PCM.PN ---
<Elsie Smith - Last Filed: 04/03/17 11:30> Subjective - Date & Time of Evaluation Date of Evaluation: 04/03/17 Time of Evaluation: 11:30 - Subjective Subjective: 76 y/o male seen at bedside with Dr. Zeng for left leg superficial abrasion. Patient s/p Rt hip ORIF hemiarthroplasty on 03/31/17. Patient agitated and awake. Patient denies any pain in his leg. HE denies any other pedal complaints at this time. Objective - Vital Signs/Intake and Output Vital Signs (last 24 hours): Temp Pulse Resp BP Pulse Ox 98.2 F 80 20 134/90 97 04/02/17 16:35 04/03/17 10:13 04/02/17 16:35 04/03/17 10:13 04/02/17 16:35 Intake and Output: 04/03/17 04/03/17 06:59 18:59 Intake Total 1640 Output Total 200 Balance 1440 - Medications Medications: Current Medications Aspirin (Ecotrin) 81 mg PO DAILY [facility] Last Admin: 04/03/17 10:11 Dose: 81 mg Calcium Carbonate (Caltrate) 600 mg PO DAILY [facility] Last Admin: 04/03/17 10:10 Dose: 600 mg Clonidine HCl (Catapres) 0.1 mg PO Q6H PRN PRN Reason: FORSBP>=170&/ORDBP>=100MMHG Ergocalciferol (Drisdol 50,000 Intl Units Cap) 1 cap PO Q7D [facility] Last Admin: 04/02/17 14:38 Dose: 1 cap Famotidine (Pepcid) 20 mg PO 1000,2200 [facility] Last Admin: 04/03/17 10:14 Dose: 20 mg Hydromorphone HCl (Dilaudid) 0.5 mg IVP Q4H PRN PRN Reason: Pain, moderate (4-7) Sodium Chloride (Sodium Chloride 0.9%) 1,000 mls @ 100 mls/hr IV .Q10H [facility] Last Admin: 04/03/17 10:14 Dose: 100 mls/hr Insulin Human Lispro (Humalog Med) 0 units SC ACHS [facility] PRN Reason: Protocol Last Admin: 04/03/17 10:11 Dose: Not Given Insulin Human NPH (Humulin N) 18 units SC ACBD [facility] Metoclopramide HCl (Reglan) 10 mg IV ONCE PRN PRN Reason: Nausea/Vomiting Metoprolol Tartrate (Lopressor) 25 mg PO BRKDIN [facility] Last Admin: 04/03/17 10:13 Dose: 25 mg Mupirocin (Bactroban Ointment) 0 gm TOP BID [facility] Last Admin: 04/03/17 10:10 Dose: 1 applic Ondansetron HCl (Zofran Inj) 4 mg IVP Q4H PRN PRN Reason: Nausea/Vomiting Polyethylene Glycol (Miralax) 17 gm PO BID [facility] Last Admin: 04/03/17 10:13 Dose: 17 gm Risperidone (Risperdal Tab) 0.5 mg PO 0800,1600 [facility] Last Admin: 04/03/17 10:14 Dose: 0.5 mg Risperidone (Risperdal Tab) 1 mg PO HS [facility] Last Admin: 04/02/17 22:27 Dose: 1 mg Tamsulosin HCl (Flomax) 0.4 mg PO DAILY [facility] Last Admin: 04/03/17 10:11 Dose: 0.4 mg Ziprasidone (Geodon Inj) 10 mg IM Q4H PRN PRN Reason: Psychosis - Labs Labs: 04/03/17 07:50 04/03/17 07:50 PT 10.9 Seconds (9.9-11.8) 03/30/17 17:35 INR 1.01 (0.93-1.08) 03/30/17 17:35 APTT 26.8 Seconds (23.7-30.8) 03/30/17 17:35 - Constitutional Appears: Well, Non-toxic, No Acute Distress - Extremities Exam Additional comments: O: Vasc: lightly palpable DP pulse 1/4 b/l, nonpalpable PT pulses, TG wnl, CFT < 3 sec to all digits, nonpitting edema neuro: grossly diminished derm: nonpitting edema, no erythema, superficial abrasion noted to left lateral upper leg, no purulence, no drainage, no malodor, no active bleeding, no acute clinical signs of infection ortho: no pain on palpation of wound - Neurological Exam Neurological Exam: Alert, Awake Assessment and Plan - Assessment and Plan (Free Text) Assessment: 76 y/o male seen at bedside for left lower extremity superficial abrasion secondary to fall ,s/p Rt hip ORIF hemiarthroplasty Plan: patient evaluated and chart reviewed seen at bedside with attending Dr. Zeng labs and vitals reviewed; afebrile applied optifoam to left leg abrasion podiatry will continue to monitor while patient remains in house <Mike Zeng - Last Filed: 04/03/17 15:51> Objective - Vital Signs/Intake and Output Vital Signs (last 24 hours): Temp Pulse Resp BP Pulse Ox 98.2 F 80 20 134/90 97 04/02/17 16:35 04/03/17 10:13 04/02/17 16:35 04/03/17 10:13 04/02/17 16:35 Intake and Output: 04/03/17 04/03/17 06:59 18:59 Intake Total 1640 Output Total 200 Balance 1440 - Medications Medications: Current Medications Aspirin (Ecotrin) 81 mg PO DAILY [facility] Last Admin: 04/03/17 10:11 Dose: 81 mg Calcium Carbonate (Caltrate) 600 mg PO DAILY [facility] Last Admin: 04/03/17 10:10 Dose: 600 mg Clonidine HCl (Catapres) 0.1 mg PO Q6H PRN PRN Reason: FORSBP>=170&/ORDBP>=100MMHG Enoxaparin Sodium (Lovenox) 40 mg SC DAILY [facility] PRN Reason: Protocol Ergocalciferol (Drisdol 50,000 Intl Units Cap) 1 cap PO Q7D [facility] Last Admin: 04/02/17 14:38 Dose: 1 cap Famotidine (Pepcid) 20 mg PO 1000,2200 [facility] Last Admin: 04/03/17 10:14 Dose: 20 mg Folic Acid (Folic Acid) 1 mg PO DAILY [facility] Hydromorphone HCl (Dilaudid) 0.5 mg IVP Q4H PRN PRN Reason: Pain, moderate (4-7) Sodium Chloride (Sodium Chloride 0.9%) 1,000 mls @ 100 mls/hr IV .Q10H [facility] Last Admin: 04/03/17 10:14 Dose: 100 mls/hr Insulin Human Lispro (Humalog Med) 0 units SC ACHS [facility] PRN Reason: Protocol Last Admin: 04/03/17 10:11 Dose: Not Given Insulin Human NPH (Humulin N) 18 units SC ACBD [facility] Metoclopramide HCl (Reglan) 10 mg IV ONCE PRN PRN Reason: Nausea/Vomiting Metoprolol Tartrate (Lopressor) 25 mg PO BRKDIN [facility] Last Admin: 04/03/17 10:13 Dose: 25 mg Mupirocin (Bactroban Ointment) 0 gm TOP BID [facility] Last Admin: 04/03/17 10:10 Dose: 1 applic Ondansetron HCl (Zofran Inj) 4 mg IVP Q4H PRN PRN Reason: Nausea/Vomiting Polyethylene Glycol (Miralax) 17 gm PO BID [facility] Last Admin: 04/03/17 10:13 Dose: 17 gm Risperidone (Risperdal Tab) 0.5 mg PO 0800,1600 [facility] Last Admin: 04/03/17 10:14 Dose: 0.5 mg Risperidone (Risperdal Tab) 1 mg PO HS [facility] Last Admin: 04/02/17 22:27 Dose: 1 mg Tamsulosin HCl (Flomax) 0.4 mg PO DAILY [facility] Last Admin: 04/03/17 10:11 Dose: 0.4 mg Ziprasidone (Geodon Inj) 10 mg IM Q4H PRN PRN Reason: Psychosis - Labs Labs: 04/03/17 07:50 04/03/17 07:50 PT 10.9 Seconds (9.9-11.8) 03/30/17 17:35 INR 1.01 (0.93-1.08) 03/30/17 17:35 APTT 26.8 Seconds (23.7-30.8) 03/30/17 17:35 Attending/Attestation - Attestation I have personally seen and examined this patient.: Yes I have fully participated in the care of the patient.: Yes I have reviewed all pertinent clinical information, including history, physical exam and plan: Yes
[2017-04-03] MEDS ORDERED: Insulin Human NPH 1 UNITS/0.01 ML SC SCH (12:34)
--- NOTE | 2017-04-03 13:58 | MRI ---
PROCEDURE: MRI BRAIN WITHOUT CONTRAST HISTORY: ams COMPARISON: None. TECHNIQUE: Multiplanar, multisequence MR images of the brain were obtained without intravenous contrast enhancement. FINDINGS: HEMORRHAGE: None DWI: No evidence of an acute or early subacute infarction. BRAIN PARENCHYMA: No mass effect or edema. No atrophy or chronic microvascular ischemic changes. VENTRICLES: Unremarkable. No hydrocephalus. CRANIUM: Unremarkable. ORBITS: Grossly unremarkable. PARANASAL SINUSES/MASTOIDS: Clear VASCULAR SYSTEM: Skull base flow voids intact. OTHER FINDINGS: None. IMPRESSION: Unremarkable non contrast enhanced MRI of the brain.
--- NOTE | 2017-04-03 14:13 | PN ---
SUBJECTIVE: The patient is lying in the bed in no acute distress. He is confused. PHYSICAL EXAMINATION: VITAL SIGNS: His blood pressure is 117/66, heart rate is 76 per minute. Breathing at a rate of 16 per minute and temperature is 98.2 degrees Fahrenheit. HEENT: Normocephalic and atraumatic. NECK: Supple. There are no carotid bruits. LUNGS: Clear. CARDIOVASCULAR: S1, S2 audible. No murmurs. ABDOMEN: Soft and nontender. Bowel sounds are present. NEUROLOGIC: Mental status; the patient is awake and alert, looks at the examiner, he answers some questions, but confused. Cranial nerve examination: Pupils nonreactive to light. Extraocular movements are intact. The right eye is literally deviated on primary gaze. There is no obvious facial asymmetry. He is moving his left side more than the right side. Planters are downgoing bilaterally. LABORATORY DATA: Reviewed, shows WBC of 7.9, hemoglobin 9.6, hematocrit 28.1, and platelets of 85. His sodium is 137, potassium 3.7, chloride of 109, carbon dioxide 22, BUN of 30, creatinine of 1.3 and glucose of 51. IMPRESSION: 1. Toxic metabolic encephalopathy. 2. Right hemiparesis, possible cerebrovascular accident. RECOMMENDATION: 1. The patient to have MRI of the brain without contrast. 2. The patient appears to be more confused today. 3. The patient to be continued on IV antibiotics. 4. Please continue the treatment and supportive care. Thank you for the opportunity to participate in the care of this patient. Toy Kaur MD
--- NOTE | 2017-04-03 17:15 | PN ---
DATE: 04/03/2017 LOCATION: The patient was seen in room 362, bed 1. The patient's nurse, Jocelyne, is around with the patient. The patient is lying in the bed. The patient is again, uncooperative, refused to be examined and touched. The patient has started to scream and yell at the physician. Overnight nurse's notes were reviewed. The patient was seen by director social welfare. The patient was noted by the night nurse's to the patient to be confused. The patient also refused to the nurses and did not allow them to touch him. PHYSICAL EXAMINATION: VITAL SIGNS: T-max is 98.3, heart rate 76 to 80, blood pressure 134/90 and 117/66, respiratory rate 20, O2 sat 97. HEENT: Head examination normocephalic, atraumatic. Shows pinkish pale conjunctivae, anicteric sclerae. No oropharyngeal lesion. NECK: No neck rigidity. CHEST: Kyphosis. LUNGS: Shows occasional rhonchi in upper lung quiros anteriorly. CARDIOVASCULAR: Shows S1 and S2, regular rhythm. ABDOMEN: Slightly protuberant. GENITALIA: Male. Positive Mckeon catheter draining dark yellow urine. EXTREMITIES: Shows positive right SCDs, positive dressing of the right hip. Positive weakness of the right upper and lower extremity. The patient is able to move left upper and lower extremity to painful stimuli. MUSCULOSKELETAL: Shows a body mass index of 32. NEUROLOGIC: The patient is alert, awake, responsive, maybe oriented x1 to 2. The patient is uncooperative. DIAGNOSTICS: WBC 7.9, hemoglobin and hematocrit 9.6 and 28.1, platelet 85,000, granulocytes 77. Sodium 137, potassium 3.7, chloride 109, CO2 of 22, anion gap 10, BUN 30, creatinine 1.3, GFR greater than 60. The patient's blood glucose 94, 68, 51, 194, 270 and 315. Calcium 7.7, phosphorus 2.4, AST 63, total protein 5.5, albumin 2.4. PSA is 8.0 and 12.3. Vitamin D 25-hydroxy 19. Urine microalbumin noted. RPR, hepatitis A, B, C, HIV negative. Left leg wound cultures coagulase-negative Staphylococcus, resistant only to clindamycin and azithromycin. Blood type B negative. The patient's chest x-ray from yesterday was negative. The echocardiogram reviewed. The patient's EEG is positive for mild hemispheric cerebral dysfunction. IMPRESSION AND PLAN: 1. Right hip femoral neck fracture. 2. Status post right hip hemiarthroplasty. 3. Status post uncontrolled hypertension. 4. Confusional state with agitation and restlessness. 5. Leukopenia, anemia, thrombocytopenia and pancytopenia. 6. Granulocytosis. 7. Lymphopenia 8. Uncontrolled insulin-requiring diabetes mellitus with hemoglobin A1c of 11.6. 9. Elevated prostate-specific antigen. 10. Questionable iron deficiency. 11. Status post acute kidney injury with underlying chronic kidney disease. 12. Protein malnutrition. 13. Hypovitaminosis D. 14. Questionable urinary tract infection with proteinuria, glycosuria, microscopic hematuria, pyuria, bacteriuria. 15. Microalbuminuria. 16. Left leg coagulase-negative Staphylococcus, left leg cellulitis and skin structure infection. 17. Degenerative joint disease with status post right hip arthroplasty. 18. Bilateral renal cyst. 19. 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 20. Left ventricular ejection fraction of 59%. 21. Moderate pulmonary hypertension and moderate tricuspid regurgitation with right ventricular systolic pressure of 55 mmHg. 22. Concentric left ventricular hypertrophy. 23. Mildly thickened aortic valve. 24. Mild aortic regurgitation, mildly thickened mitral valve. 25. Moderate pulmonary arterial hypertension with elevated right ventricular systolic pressure. 26. Gait dysfunction. 27. Deconditioning. 28. Questionable near syncope versus syncope. 29. Status post fall. 30. Bibasilar atelectasis. 31. Small hiatal hernia. 32. Short mediastinal adenopathy. 33. Osteopenia. 34. Degenerative joint disease of the bones. 35. Left gynecomastia. 36. Fecal colonic stasis. 37. Questionable hemorrhagic cystitis with hematuria. 38. Status post right hip surgery. 39. Mild urinary bladder wall thickening and partially distended urinary bladder with minimal perivesical inflammation. 40. Prostatic hypertrophy. 41. Bihemispheric cerebral dysfunction. 42. Right shoulder glenohumeral osteoarthritis. 43. Right femoral neck fracture acute versus subacute. 44. Benign prostatic hypertrophy versus hyperplasia. 45. Resolving acute kidney injury with possible underlying chronic kidney disease stage II. 46. Psychosis. 47. Mild dementia. 48. Right upper extremity and right-sided weakness versus questionable right hemiparesis. 49. Hematuria. 50. Right hemiparesis, etiology undetermined. 51. Status post right hip fracture surgery. 52. Enlarge prostate with prostatomegaly. 53. Status post fall. 54. Questionable noncompliance. 55. History of noncompliance. 56. Possible schizophrenia. 57. Status post right hip bipolar hemiarthroplasty. 1. Right femoral subcapital fracture. 2. Status post right hip and right femur hemiarthroplasty. 3. Status post syncope and fall. 4. Questionable psychosis with schizophrenia and schizoaffective disorder. 5. Possible postop delirium. 6. Questionable behavioral disorder. 7. Uncontrolled insulin requiring diabetes mellitus with hemoglobin A1c of greater than 11. 8. Status post uncontrolled hypertension. 9. Anemia. 10. Acute kidney injury (resolving). 11. Underlying chronic kidney disease, stage II/III. 12. Elevated prostate-specific antigen of greater than 8 and 10. 13. Thrombocytopenia, etiology undetermined. 14. Gait dysfunction. 15. Right-sided weakness, etiology undetermined. 16. Questionable cerebral infarct versus transient ischemic attack. 17. History of hypertension and insulin requiring diabetes mellitus with severe noncompliance. 18. Obesity with elevated body mass index. 19. Colonic fecal stasis. 20. Degenerative joint disease. 21. Questionable and possible dementia. 22. Left leg diabetic ulceration with infection and skin structure infection. 23. Questionable syncope versus near syncope. 24. Questionable noncompliance and poor compliance. 1. Status post fall. 2. Right hip femoral neck fracture. 3. Status post right hip hemiarthroplasty postop day 1. 4. Possible delirium. 5. Questionable behavioral disorder. 6. Left ventricular ejection fraction of 59%. 7. Concentric left ventricular hypertrophy. 8. Mild aortic regurgitation. 9. Moderate tricuspid regurgitation with moderate pulmonary arterial hypertension with right ventricular systolic pressure of 55 mmHg. 10. 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 11. Bilateral renal cyst. 12. Hypertension. 13. Leukopenia. 14. Anemia and granulocytosis. 15. Uncontrolled type 1 insulin-requiring diabetes mellitus with hyperglycemia and hemoglobin A1c of 11.6. 16. Elevated PSA of 8.0. 17. Deconditioning. 18. Acute kidney injury with underlying chronic kidney disease stage 2. 19. Hematuria. 20. Proteinuria, glycosuria, hematuria, pyuria, bacteruria. 21. Proteinuria and microalbuminuria. 22. Left leg Gram positive cocci, left leg cellulitis and ulceration. 23. Bilateral renal cortical cyst. 24. Questionable benign prostatic hypertrophy. 25. Questionable hemorrhagic cystitis. 26. Deconditioning. 27. Gait dysfunction. 28. Questionable urinary retention. 29. Questionable constipation. 30. Toxic metabolic encephalopathy. 31. Questionable right-sided hemiparesis. 32. Questionable syncope versus near syncope. 33. Questionable urinary tract infection. 34. Questionable right-sided weakness. 35. Colonic fecal stasis. 36. Bibasilar atelectasis, scarring. 37. Small hiatal hernia. 38. Osteopenia with degenerative joint disease. 39. Left gynecomastia. 40. Pancreatic atrophy. 41. Bilateral adrenal nodule. 42. Mild bladder wall thickening. 43. Perivesicular inflammation. 44. Prostatomegaly. 45. Right hip subcapital fracture. 1. Status post fall. 2. Right femoral neck acute versus subacute fracture with nonunion and resorption. 3. Gait dysfunction. 4. Uncontrolled hypertension. 5. Leukopenia with granulocytosis. 6. Mild normocytic anemia. 7. Insulin requiring type 1 diabetes mellitus with hyperglycemia. 8. Questionable urinary tract infection with proteinuria, hematuria, glycosuria, pyuria and bacteriuria. 9. Bibasilar atelectasis and scarring. 10. Small hiatal hernia. 11. Gastroesophageal junction clips, etiology undetermined, with shotty mediastinal lymphadenopathy. 12. Osteopenia. 13. Degenerative joint disease. 14. Left gynecomastia. 15. Partially distended gallbladder with a prominent common bile duct. 16. Pancreatic atrophy. 17. Bilateral adrenal nodules. 18. Bilateral renal cyst. 19. Fecal retention. 20. Questionable cystitis with bladder wall thickening and partially distended urinary bladder and perivesicular inflammation. 21. Prostatomegaly. 22. Right hip subcapital fracture. 23. Right shoulder glenohumeral joint osteoarthritis. 24. Uncontrolled insulin requiring diabetes mellitus with hyperglycemia. 25. 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 26. Mild normocytic anemia. 27. Gait dysfunction. 28. Left lower extremity superficial ulceration. Plan at this time, the patient has been ordered serial labs. The patient has been requested hematology consultation. Thrombocytopenia testing has been ordered.. Blood and urine cultures are again ordered. Current consultation hematology/oncology, infectious disease, nephrology, neurology, orthopedic examination, podiatry, cardiology, urology and psychiatry. Case referred for discharge planning. CURRENT MEDICATIONS: 1. Bactroban cream to the left leg area twice a day. 2. Caltrate 600 mg daily. 3. Clonidine 0.1 mg q. 6 p.r.n. 4. Dilaudid 0.5 mg IV q. 4 p.r.n. 5. Drisdol 50,000 weekly. 6. Ecotrin 81 mg daily. 7. Flomax 0.4 mg daily. 8. Geodon 10 mg IM q. 4 p.r.n. 9. Humalog medium dose sliding scale coverage a.c. and at bedtime. 10. NPH insulin decreased to 18 units a.c. breakfast and dinner because of hypoglycemia. 11. Lopressor 25 twice a day. 12. MiraLax 17 g twice a day. 13. Pepcid 20 mg twice a day. 14. Risperdal 0.5 mg twice a day. 15. Risperdal 1 mg at bedtime. 16. Normal saline at 100 ml an hour. 17. Zofran 4 mg IV q. 4 p.r.n. MRI of the brain without contrast pending. Oxygen 2 L nasal cannula. Heart-healthy diet. The patient has been ordered out of bed to chair. The patient will be continued on the DVT prophylaxis. The patient has been ordered physical therapy, occupational therapy. The patient has been seen by director social welfare and director social welfare has met with the family regarding the choice of the subacute rehab. The patient was seen by physical therapist.. The recommendation by physical therapy yesterday was subacute rehab discharge. Dictated and electronically signed, not read. Eliezer Hanna MD MTDD
[2017-04-03] MEDS: Enoxaparin 40 mg Syringe SC SCH (18:02)
[2017-04-03 18:52] LABS: GLYCOMARK(R) 2.3 mcg/mL (7.3-36.6)
--- NOTE | 2017-04-03 19:07 | CP.PCM.PN ---
Subjective - Date & Time of Evaluation Date of Evaluation: 04/03/17 Time of Evaluation: 10:10 - Subjective Subjective: Comfortable, not in distress, afebrile, not in distress. Objective - Vital Signs/Intake and Output Vital Signs (last 24 hours): Temp Pulse Resp BP Pulse Ox 98.5 F 80 22 169/82 H 100 04/03/17 16:56 04/03/17 17:55 04/03/17 16:56 04/03/17 17:55 04/03/17 16:56 - Medications Medications: Current Medications Aspirin (Ecotrin) 81 mg PO DAILY ON [facility] OF [facility] Last Admin: 04/03/17 10:11 Dose: 81 mg Calcium Carbonate (Caltrate) 600 mg PO DAILY ON [facility] Last Admin: 04/03/17 10:10 Dose: 600 mg Clonidine HCl (Catapres) 0.1 mg PO Q6H PRN PRN Reason: FORSBP>=170&/ORDBP>=100MMHG Enoxaparin Sodium (Lovenox) 40 mg SC DAILY ON [facility] OF [facility] PRN Reason: Protocol Last Admin: 04/03/17 18:02 Dose: 40 mg Ergocalciferol (Drisdol 50,000 Intl Units Cap) 1 cap PO Q7D ON [facility] OF [facility] Last Admin: 04/02/17 14:38 Dose: 1 cap Famotidine (Pepcid) 20 mg PO 1000,2200 ON [facility] Last Admin: 04/03/17 10:14 Dose: 20 mg Folic Acid (Folic Acid) 1 mg PO DAILY ON [facility] Hydromorphone HCl (Dilaudid) 0.5 mg IVP Q4H PRN PRN Reason: Pain, moderate (4-7) Sodium Chloride (Sodium Chloride 0.9%) 1,000 mls @ 100 mls/hr IV .Q10H ON [facility] OF [facility] Stop: 04/04/17 06:00 Last Admin: 04/03/17 10:14 Dose: 100 mls/hr Insulin Human Lispro (Humalog Med) 0 units SC ACHS ON LICENSE OF [facility] PRN Reason: Protocol Last Admin: 04/03/17 17:57 Dose: Not Given Insulin Human NPH (Humulin N) 18 units SC ACBD ON LICENSE OF [facility] Last Admin: 04/03/17 17:59 Dose: 18 units Metoclopramide HCl (Reglan) 10 mg IV ONCE PRN PRN Reason: Nausea/Vomiting Metoprolol Tartrate (Lopressor) 25 mg PO BRKDIN ON [facility] Last Admin: 04/03/17 17:55 Dose: 25 mg Mupirocin (Bactroban Ointment) 0 gm TOP BID ON [facility] Last Admin: 04/03/17 17:54 Dose: Not Given Ondansetron HCl (Zofran Inj) 4 mg IVP Q4H PRN PRN Reason: Nausea/Vomiting Polyethylene Glycol (Miralax) 17 gm PO BID ON [facility] Last Admin: 04/03/17 18:01 Dose: 17 gm Risperidone (Risperdal Tab) 0.5 mg PO 0800,1600 ON [facility] OF [facility] Last Admin: 04/03/17 17:56 Dose: 0.5 mg Risperidone (Risperdal Tab) 1 mg PO HS ON [facility] Last Admin: 04/02/17 22:27 Dose: 1 mg Tamsulosin HCl (Flomax) 0.4 mg PO DAILY ON [facility] Last Admin: 04/03/17 10:11 Dose: 0.4 mg Ziprasidone (Geodon Inj) 10 mg IM Q4H PRN PRN Reason: Psychosis - Labs Labs: 04/03/17 07:50 04/03/17 07:50 PT 10.9 Seconds (9.9-11.8) 03/30/17 17:35 INR 1.01 (0.93-1.08) 03/30/17 17:35 APTT 26.8 Seconds (23.7-30.8) 03/30/17 17:35 - Constitutional Appears: Non-toxic, No Acute Distress - Head Exam Head Exam: NORMAL INSPECTION - ENT Exam ENT Exam: Mucous Membranes Moist - Neck Exam Neck Exam: absent: Meningismus - Respiratory Exam Respiratory Exam: Decreased Breath Sounds - Cardiovascular Exam Cardiovascular Exam: +S1, +S2 - GI/Abdominal Exam GI & Abdominal Exam: Soft. absent: Tenderness Assessment and Plan - Assessment and Plan (Free Text) Plan: Assessment urinary frequency and hesitancy, consider prostatic conditions such as benign prostatic hyperplasia; no evidence of UTI currently with urine cx negative ( taken prior to antibiotics given) right hip femoral neck fracture S/P hemiarthroplasty POD #3 DM HTN obesity with BMI 33 Plan suggest Urology evaluation will continue to monitor off antibiotics since he is at risk for healthcare- associated infections
--- NOTE | 2017-04-03 19:13 | CP.PCM.CON ---
History of Present Illness - History of Present Illness History of Present Illness: Hematology Consult Re: Thrombocytopenia HPI- Mr. Tadeo is a 76yo Male with PMH DM2 (on insulin) and HTN who was admitted after a fall and found to have right femoral neck fracture. He underwent surgical fixation on 03/31. His WBC was 4.3 on admission but has been in range of 7-8 since then. Hb was 13.3 on admission but dropped to 9.6 today. His platelet count was normal on admission (207) but dropped to 85 today. He denies bleeding. He had a traumatic cm catheter earlier and was noticed to have hematuria that has resolved since then. No fever, chills. Other blood work reviewed was unremarkable. PMH: Diabetes, HTN PSH: none Meds: Insulin (non-compliant) Allergies: NKDA SHx: lives at home with family, uses rollator, denied tobacco/etoh/drug use, retired, used to park cars FHx: stated mom has heart dz Review of Systems - Review of Systems All systems: reviewed and no additional remarkable complaints except Review of Systems: right arm weakness, improving now. Past Patient History - Infectious Disease Hx of Infectious Diseases: None - Tetanus Immunizations Tetanus Immunization: Unknown - Past Social History Smoking Status: Never Smoked - CARDIAC Hx Cardiac Disorders: Yes Hx Hypercholesterolemia: Yes Hx Hypertension: Yes - PULMONARY Hx Respiratory Disorders: No - NEUROLOGICAL Hx Neurological Disorder: No - HEENT Hx HEENT Problems: No - RENAL Hx Chronic Kidney Disease: No - ENDOCRINE/METABOLIC Hx Diabetes Mellitus Type 2: Yes - HEMATOLOGICAL/ONCOLOGICAL Hx Blood Transfusions: No - INTEGUMENTARY Hx Dermatological Problems: No - MUSCULOSKELETAL/RHEUMATOLOGICAL Hx Musculoskeletal Disorders: Yes (uses walker) Hx Falls: Yes - GASTROINTESTINAL Hx Gastrointestinal Disorders: No - GENITOURINARY/GYNECOLOGICAL Hx Genitourinary Disorders: No - PSYCHIATRIC Hx Psychophysiologic Disorder: (etoh) Hx Substance Use: No - SURGICAL HISTORY Hx Surgeries: No Meds Allergies/Adverse Reactions: Allergies Allergy/AdvReac Type Severity Reaction Status Date / Time No Known Allergies Allergy Verified 03/30/17 17:42 - Medications Medications: Current Medications Aspirin (Ecotrin) 81 mg PO DAILY [facility] Last Admin: 04/03/17 10:11 Dose: 81 mg Calcium Carbonate (Caltrate) 600 mg PO DAILY [facility] Last Admin: 04/03/17 10:10 Dose: 600 mg Clonidine HCl (Catapres) 0.1 mg PO Q6H PRN PRN Reason: FORSBP>=170&/ORDBP>=100MMHG Enoxaparin Sodium (Lovenox) 40 mg SC DAILY [facility] PRN Reason: Protocol Last Admin: 04/03/17 18:02 Dose: 40 mg Ergocalciferol (Drisdol 50,000 Intl Units Cap) 1 cap PO Q7D [facility] Last Admin: 04/02/17 14:38 Dose: 1 cap Famotidine (Pepcid) 20 mg PO 1000,2200 [facility] Last Admin: 04/03/17 10:14 Dose: 20 mg Folic Acid (Folic Acid) 1 mg PO DAILY [facility] Hydromorphone HCl (Dilaudid) 0.5 mg IVP Q4H PRN PRN Reason: Pain, moderate (4-7) Sodium Chloride (Sodium Chloride 0.9%) 1,000 mls @ 100 mls/hr IV .Q10H [facility] Stop: 04/04/17 06:00 Last Admin: 04/03/17 10:14 Dose: 100 mls/hr Insulin Human Lispro (Humalog Med) 0 units SC ACHS [facility] PRN Reason: Protocol Last Admin: 04/03/17 17:57 Dose: Not Given Insulin Human NPH (Humulin N) 18 units SC ACBD [facility] Last Admin: 04/03/17 17:59 Dose: 18 units Metoclopramide HCl (Reglan) 10 mg IV ONCE PRN PRN Reason: Nausea/Vomiting Metoprolol Tartrate (Lopressor) 25 mg PO BRKDIN [facility] Last Admin: 04/03/17 17:55 Dose: 25 mg Mupirocin (Bactroban Ointment) 0 gm TOP BID [facility] Last Admin: 04/03/17 17:54 Dose: Not Given Ondansetron HCl (Zofran Inj) 4 mg IVP Q4H PRN PRN Reason: Nausea/Vomiting Polyethylene Glycol (Miralax) 17 gm PO BID [facility] Last Admin: 04/03/17 18:01 Dose: 17 gm Risperidone (Risperdal Tab) 0.5 mg PO 0800,1600 [facility] Last Admin: 04/03/17 17:56 Dose: 0.5 mg Risperidone (Risperdal Tab) 1 mg PO HS [facility] Last Admin: 09/07/17 22:27 Dose: 1 mg Tamsulosin HCl (Flomax) 0.4 mg PO DAILY [facility] Last Admin: 04/03/17 10:11 Dose: 0.4 mg Ziprasidone (Geodon Inj) 10 mg IM Q4H PRN PRN Reason: Psychosis Physical Exam - Head Exam Head Exam: ATRAUMATIC, NORMAL INSPECTION - Eye Exam Eye Exam: EOMI, PERRL - ENT Exam ENT Exam: Mucous Membranes Moist - Neck Exam Neck exam: Negative for: Lymphadenopathy - Respiratory Exam Respiratory Exam: Clear to Auscultation Bilateral - Cardiovascular Exam Cardiovascular Exam: REGULAR RHYTHM - GI/Abdominal Exam GI & Abdominal Exam: Normal Bowel Sounds, Soft. absent: Organomegaly, Tenderness - Extremities Exam Extremities exam: Negative for: pedal edema - Neurological Exam Neurological exam: Alert Results - Vital Signs Recent Vital Signs: Last Vital Signs Temp 98.5 F 04/03/17 16:56 Pulse 80 04/03/17 17:55 Resp 22 04/03/17 16:56 BP 169/82 H 04/03/17 17:55 Pulse Ox 100 04/03/17 16:56 - Labs Result Diagrams: 04/03/17 07:50 04/03/17 07:50 Labs: Laboratory Results - last 24 hr 04/02/17 04/02/17 04/02/17 07:00 12:02 21:38 WBC RBC Hgb Hct MCV MCH MCHC RDW Plt Count Manual Plt Count MPV Gran % Lymph % (Auto) Howell % (Auto) Eos % (Auto) Baso % (Auto) Gran # Lymph # Howell # Eos # Baso # Sodium Potassium Chloride Carbon Dioxide Anion Gap BUN Creatinine Est GFR ( Amer) Est GFR (Non-Af Amer) POC Glucose (mg/dL) 315 H 194 H Random Glucose Calcium Phosphorus Magnesium Total Bilirubin Direct Bilirubin AST ALT Alkaline Phosphatase Total Protein Albumin Globulin Albumin/Globulin Ratio PTH Intact Whole Molec 59 04/03/17 04/03/17 04/03/17 07:32 07:50 07:50 WBC 7.9 RBC 3.34 L Hgb 9.6 L Hct 28.1 L MCV 84.1 MCH 28.7 MCHC 34.2 RDW 14.0 Plt Count 85 L Manual Plt Count MPV 9.7 Gran % 77.6 H Lymph % (Auto) 9.3 L Howell % (Auto) 10.5 H Eos % (Auto) 2.5 Baso % (Auto) 0.1 Gran # 6.14 Lymph # 0.7 L Howell # 0.8 H Eos # 0.2 Baso # 0.01 Sodium 137 Potassium 3.7 Chloride 109 Carbon Dioxide 22 Anion Gap 10 BUN 30 H Creatinine 1.3 Est GFR ( Amer) > 60 Est GFR (Non-Af Amer) 54 POC Glucose (mg/dL) 51 L Random Glucose 68 L Calcium 7.7 L Phosphorus 2.4 L Magnesium 1.9 Total Bilirubin 0.6 Direct Bilirubin 0.3 AST 63 H ALT 39 Alkaline Phosphatase 63 Total Protein 5.5 L Albumin 2.4 L Globulin 3.1 Albumin/Globulin Ratio 0.8 L PTH Intact Whole Molec 04/03/17 04/03/17 04/03/17 08:55 09:38 11:26 WBC RBC Hgb Hct MCV MCH MCHC RDW Plt Count Manual Plt Count 90 L MPV Gran % Lymph % (Auto) Howell % (Auto) Eos % (Auto) Baso % (Auto) Gran # Lymph # Howell # Eos # Baso # Sodium Potassium Chloride Carbon Dioxide Anion Gap BUN Creatinine Est GFR ( Amer) Est GFR (Non-Af Amer) POC Glucose (mg/dL) 94 85 Random Glucose Calcium Phosphorus Magnesium Total Bilirubin Direct Bilirubin AST ALT Alkaline Phosphatase Total Protein Albumin Globulin Albumin/Globulin Ratio PTH Intact Whole Molec 04/03/17 16:07 WBC RBC Hgb Hct MCV MCH MCHC RDW Plt Count Manual Plt Count MPV Gran % Lymph % (Auto) Howell % (Auto) Eos % (Auto) Baso % (Auto) Gran # Lymph # Howell # Eos # Baso # Sodium Potassium Chloride Carbon Dioxide Anion Gap BUN Creatinine Est GFR ( Amer) Est GFR (Non-Af Amer) POC Glucose (mg/dL) 149 H Random Glucose Calcium Phosphorus Magnesium Total Bilirubin Direct Bilirubin AST ALT Alkaline Phosphatase Total Protein Albumin Globulin Albumin/Globulin Ratio PTH Intact Whole Molec Assessment & Plan - Assessment and Plan (Free Text) Assessment: Thrombocytopenia Normocytic to borderline microcytic anemia His platelets could be low due to bone marrow suppression. Other work up including VitB12, TSH, HIV, Hepatitis panel were unremarkable. PT/PTT are also normal with low likelihood of DIC. There does not appear to be any new medications causing low platelets. I do not have his prior platelet counts to compare if he was fluctuating counts. At this stage, will continue to monitor blood counts routinely. No further investigation needed. In future, if platelets decrease further or other blood counts are affected, can consider bone marrow biopsy. Will start on folic acid 1 mg daily. Start Lovenox for DVT prophylaxis as high risk for DVT. Monitor for bleeding. Thank you for the consult See Diaz MD - Date & Time Date: 04/03/17 Time: 15:12
--- NOTE | 2017-04-03 20:03 | PN ---
DATE: SUBJECTIVE: The patient is a 76-year-old -[place] male who has been treated for a right hip fracture. He has been delirious. He was agitated and psychotic upon admission, noncooperative with the nursing staff. In recent days, he has been much more cooperative, although he remains confused. He remains disoriented to time as well as circumstantial disorganized thinking. The patient yesterday had an MRI of the brain, which showed no evidence of an acute or subacute infarct. He had no atrophy or no microvascular disease. LABORATORY DATA: The patient's laboratory data; his white count is 7900, hemoglobin is 9.6, hematocrit 28.1, platelet count 85,000. His metabolic profile, his electrolytes were all normal. BUN 30, creatinine 1.3, estimated GFR of greater than 60. Random glucose of 149. The patient's calcium is 7.7. Rest of the profile is normal except for a minimally elevated AST of 63, albumin of 2.4. CURRENT MEDICATIONS: The patient's current medication includes; Humalog protocol, p.r.n. Dilaudid he has not received in the past 24-48 hours. He is on lactated Ringer's solution, Reglan p.r.n. IV, Lopressor 25 mg twice a day, Catapres p.r.n., Flomax 0.4 mg daily, ordered for p.r.n. Geodon which he has not received. He is receiving Risperdal 0.5 mg b.i.d. 1 mg at bedtime, Pepcid and Ecotrin, Caltrate, Drisdol, Lovenox, Humulin NPH insulin and folate. PHYSICAL EXAMINATION: VITAL SIGNS: His blood pressure is 169/82, pulse 80, afebrile, respirations 22 per minute. IMPRESSION: The patient has mild delirium with previous psychotic symptomatology with thought disorder. He has status post hip fracture, he has insulin-dependent diabetes mellitus. The patient also has leukopenia, anemia, history of vitamin D deficiency. He has a left leg Staphylococcal cellulitis. The patient has coronary artery disease, mild aortic regurgitation, he has gait dysfunction. PLAN: We will continue Risperdal 0.5 mg b.i.d. 1 mg at bedtime. He will be discharge and is to followup in psychiatric consultation at acute rehab. Christiano Nichole MD [facility] # [id number]
--- NOTE | 2017-04-03 23:24 | PN ---
DATE: 04/03/2017 SUBJECTIVE: The patient is seen, lying in bed. He is awake, he is alert, he is comfortable. He denies any pain. He denies any shortness of breath. PHYSICAL EXAMINATION: GENERAL: Elderly male lying in bed. VITAL SIGNS: Blood pressure 134/90, heart rate 80, respiratory rate 20, and temperature 98.2. HEENT: Normocephalic, atraumatic. NECK: Supple, no JVD. LUNGS: Bilateral equal air entry, no rales. CARDIAC: S1 and S2. Regular rate and rhythm. No murmur, no rub. ABDOMEN: Obese, distended, soft, nontender, bowel sounds present. EXTREMITIES: Trace lower extremity edema, chronic stasis changes, thick skin. INTAKE AND OUTPUT: 1640/200. LABORATORY DATA: WBC 7.9, hemoglobin 9.6, hematocrit 28 and platelets 85. Sodium 137, potassium 3.7, chloride 109, CO2 22, BUN 30, creatinine 1.3, glucose 68, calcium 7.7, phosphorus 2.4, magnesium 1.9, albumin 2.4, corrected calcium is 8.7. PTH 59. Vitamin D 18.9. CURRENT MEDICATIONS: Calcium carbonate 600 mg daily, clonidine p.r.n., Dilaudid, vitamin D once a week, aspirin, Flomax, folic acid, Geodon, insulin, Lopressor 25 b.i.d., Lovenox, Pepcid, Reglan, Risperdal, normal saline at 100. ASSESSMENT: 1. Acute kidney injury, resolving. Creatinine improving nicely. 2. Hypocalcemia. 3. Low vitamin D. 4. Status post syncope. 5. Dementia. 6. Altered mental status. PLAN: 1. Continue calcium supplementation. 2. Continue vitamin D. 3. Discontinue IV fluids in a.m. Brunilda Argueta MD
[2017-04-04] MEDS: Insulin Lispro (humaLOG) MEDIUM Coverage SC SCH ×2 (08:00→12:03)
[2017-04-04 08:14] VITALS: RESP 20; TEMP 97.7; O2SAT 97
[2017-04-04] MEDS: Insulin Human NPH 1 UNITS/0.01 ML SC SCH (08:20)
[2017-04-04] MEDS: POLYETHYLENE GLYCOL 3350 17 GM/Dose PACKET PO SCH (09:04)
[2017-04-04] MEDS: Enoxaparin 40 mg Syringe SC SCH (09:05)
--- NOTE | 2017-04-04 09:13 | CP.PCM.PN ---
<Humphrey Kauffman - Last Filed: 04/04/17 09:10> Subjective - Date & Time of Evaluation Date of Evaluation: 04/04/17 Time of Evaluation: 09:10 - Subjective Subjective: 76 y/o male seen at bedside with Dr. Zeng for left leg superficial abrasion. Patient s/p Rt hip ORIF hemiarthroplasty on 03/31/17. Patient is agitated and awake. Patient denies any pain in his leg. He denies any other pedal complaints at this time. Objective - Vital Signs/Intake and Output Vital Signs (last 24 hours): Temp Pulse Resp BP Pulse Ox 97.7 F 92 H 20 156/90 H 97 04/04/17 08:14 04/04/17 08:21 04/04/17 08:14 04/04/17 08:21 04/04/17 08:14 Intake and Output: 04/04/17 04/04/17 06:59 18:59 Intake Total 360 Output Total 975 Balance -615 - Medications Medications: Current Medications Aspirin (Ecotrin) 81 mg PO DAILY [facility] Last Admin: 04/04/17 09:05 Dose: 81 mg Calcium Carbonate (Caltrate) 600 mg PO DAILY [facility] Last Admin: 04/04/17 09:04 Dose: 600 mg Clonidine HCl (Catapres) 0.1 mg PO Q6H PRN PRN Reason: FORSBP>=170&/ORDBP>=100MMHG Donepezil HCl (Aricept) 5 mg PO HS [facility] Enoxaparin Sodium (Lovenox) 40 mg SC DAILY [facility] PRN Reason: Protocol Last Admin: 04/04/17 09:05 Dose: 40 mg Ergocalciferol (Drisdol 50,000 Intl Units Cap) 1 cap PO Q7D [facility] Last Admin: 04/02/17 14:38 Dose: 1 cap Famotidine (Pepcid) 20 mg PO 1000,2200 [facility] Last Admin: 04/04/17 09:04 Dose: 20 mg Folic Acid (Folic Acid) 1 mg PO DAILY [facility] Last Admin: 04/04/17 09:04 Dose: 1 mg Insulin Human Lispro (Humalog Med) 0 units SC ACHS [facility] PRN Reason: Protocol Last Admin: 04/04/17 08:00 Dose: Not Given Insulin Human NPH (Humulin N) 18 units SC ACBD [facility] Last Admin: 04/04/17 08:20 Dose: 18 units Metoclopramide HCl (Reglan) 10 mg IV ONCE PRN PRN Reason: Nausea/Vomiting Metoprolol Tartrate (Lopressor) 25 mg PO BRKDIN [facility] Last Admin: 04/04/17 08:21 Dose: 25 mg Mupirocin (Bactroban Ointment) 0 gm TOP BID [facility] Last Admin: 04/04/17 09:06 Dose: Not Given Ondansetron HCl (Zofran Inj) 4 mg IVP Q4H PRN PRN Reason: Nausea/Vomiting Polyethylene Glycol (Miralax) 17 gm PO BID [facility] Last Admin: 04/04/17 09:04 Dose: 17 gm Risperidone (Risperdal Tab) 0.5 mg PO 0800,1600 [facility] Last Admin: 04/04/17 08:20 Dose: 0.5 mg Risperidone (Risperdal Tab) 1 mg PO HS [facility] Last Admin: 04/03/17 21:28 Dose: 1 mg Tamsulosin HCl (Flomax) 0.4 mg PO DAILY [facility] Last Admin: 04/04/17 09:04 Dose: 0.4 mg Ziprasidone (Geodon Inj) 10 mg IM Q4H PRN PRN Reason: Psychosis - Labs Labs: 04/03/17 07:50 04/03/17 07:50 PT 10.9 Seconds (9.9-11.8) 03/30/17 17:35 INR 1.01 (0.93-1.08) 03/30/17 17:35 APTT 26.8 Seconds (23.7-30.8) 03/30/17 17:35 - Constitutional Appears: Well, Non-toxic, No Acute Distress - Extremities Exam Additional comments: Vasc: lightly palpable DP pulse 1/4 b/l, nonpalpable PT pulses, TG wnl, CFT < 3 sec to all digits, nonpitting edema Derm: nonpitting edema, no erythema, superficial abrasion noted to left lateral upper leg, no purulence, no drainage, no malodor, no active bleeding, no acute clinical signs of infection Neuro: Protective sensation grossly diminished Ortho: no pain on palpation of wound - Neurological Exam Neurological Exam: Alert, Awake, Oriented x3 - Psychiatric Exam Psychiatric exam: Normal Affect, Normal Mood Assessment and Plan - Assessment and Plan (Free Text) Assessment: 76 y/o male seen at bedside for left lower extremity superficial abrasion secondary to fall s/p right hip ORIF hemiarthroplasty Plan: patient evaluated and chart reviewed seen at bedside with attending Dr. Zeng labs and vitals reviewed; afebrile applied optifoam to left leg abrasion podiatry will continue to monitor while patient remains in house <Mike Zeng - Last Filed: 04/07/17 11:19> Objective - Vital Signs/Intake and Output Vital Signs (last 24 hours): Temp Pulse Resp BP Pulse Ox 97.7 F 78 20 149/72 97 04/04/17 08:14 04/04/17 12:33 04/04/17 08:14 04/04/17 12:33 04/04/17 08:14 - Labs Labs: 04/03/17 07:50 04/03/17 07:50 PT 10.9 Seconds (9.9-11.8) 03/30/17 17:35 INR 1.01 (0.93-1.08) 03/30/17 17:35 APTT 26.8 Seconds (23.7-30.8) 03/30/17 17:35 Attending/Attestation - Attestation I have personally seen and examined this patient.: Yes I have fully participated in the care of the patient.: Yes I have reviewed all pertinent clinical information, including history, physical exam and plan: Yes
--- NOTE | 2017-04-04 11:51 | PN ---
NEUROLOGY PROGRESS NOTE SUBJECTIVE: The patient is lying on the bed, in no acute distress. PHYSICAL EXAMINATION: VITAL SIGNS: Blood pressure is 156/90, heart rate is 92 per minute, breathing at the rate of 16 per minute, and temperature is 97.7 degrees Fahrenheit. HEENT: Head is normocephalic and atraumatic. NECK: Supple. There are no carotid bruits. LUNGS: Clear. CARDIOVASCULAR: S1 and S2 audible. No murmurs. ABDOMEN: Soft and nontender. Bowel sounds are present. NEUROLOGIC: Mental status: The patient is awake and alert. He said he is in the parking lot. He does not know the year or the month. He follows simple commands. Cranial nerve examination: Pupils are nonreactive to light. Extraocular movements are intact. The right eye is literally deviated on primary gaze. There is no facial asymmetry. He is moving all four extremities, moving left side more than the right side. Plantars are downgoing bilaterally. LABORATORY DATA: Labs reviewed, shows unremarkable MRI of the brain. IMPRESSION: 1. Toxic metabolic encephalopathy. 2. Likely underlying dementia. 3. Right hemiparesis. RECOMMENDATIONS: 1. The patient continues to be confused on and off. 2. I agree with starting Aricept 5 mg once a day for his underlying dementia. 3. The patient to be continued on IV antibiotics. 4. Consider obtaining MRI of the cervical spine as well because of the presence of right-sided weakness with unremarkable MRI of the brain. 5. Please continue supportive care and treatment. Thank you for the opportunity to participate in the care of this patient. Toy Kaur MD
[2017-04-04 12:34] VITALS: BP 149/72; PULSE 78
--- NOTE | 2017-04-04 15:44 | PN ---
DATE: 04/04/2017 SUBJECTIVE: The patient is seen lying in bed. He is awake, he is alert, he is confused, he is mumbling unintelligibly . PHYSICAL EXAMINATION: GENERA: Obese, elderly male lying in bed. VITAL SIGNS: Blood pressure 156/90, heart rate 92, respiratory rate 20, temperature 97.7. HEENT: Normocephalic, atraumatic. NECK: Supple, no JVD. LUNGS: Bilateral equal air entry, bilateral equal expansion. CARDIAC: S1 and S2, regular rate and rhythm, no murmur, no rub. ABDOMEN: Obese, distended, soft, nontender, bowel sounds present. EXTREMITIES: Chronic stasis changes, wrinkling of skin, thick leathery skin. INTAKE AND OUTPUT: 360/975. LABORATORY DATA: WBC is 7.9, hemoglobin 9.6, hematocrit 28, platelets 85. No chemistry today. Wound culture staph coagulase negative. Urine culture from 04/03/2017, no growth. MRI of the brain from 04/03/2017 unremarkable. CURRENT MEDICATIONS: Aricept, mupirocin, Caltrate, Catapres patch #1, Drisdol, Ecotrin, Flomax, folic acid, Geodon, insulin, Lopressor 25 mg b.i.d., Lovenox, MiraLax, Reglan, Risperdal, Zofran, Dilaudid. ASSESSMENT/PLAN: 1. Acute kidney injury, resolved. 2. Underlying chronic kidney disease stage II, suspect 3. Status post fall, status post femoral neck fracture, status post internal fixation on 03/31/2017, postop day number #4. 4. Hypertension, suboptimally controlled. 5. Dementia. 6. Altered mental status. 7. Benign prostatic hypertrophy, status post urinary retention. PLAN: 1. Off IV fluids now. 2. Push p.o. intake. 3. Add amlodipine 5 mg daily for better blood pressure control. 4. Physical therapy. 5. Labs in a.m. Brunilda Argueta MD
--- NOTE | 2017-04-05 06:14 | DS ---
The patient was seen today in room #367, bed #1. The patient is seen lying in the bed. The patient is alert, awake, oriented x1 to 2. The patient is disoriented to year, date, month. The patient is able to say his name and follow simple command by moving upper extremities. The patient's overnight nurse's notes were reviewed. The patient was found to be episodically confused. PHYSICAL EXAMINATION: VITAL SIGNS: The patient's vital signs reviewed as per the [facility]. Blood pressure was periodically elevated in 160s systolic, diastolic in 80s and 90s. The patient has had been afebrile, heart rate 76 to 84, respiration 18 to 22, O2 sat is mid to high 90s. Intake and output was not documented. HEAD: The patient's head examination normocephalic, atraumatic. HEENT EXAMINATION: Shows pinkish pale conjunctivae. Anicteric sclerae. No oropharyngeal lesion. No neck rigidity. CHEST EXAMINATION: Kyphosis. LUNGS EXAMINATION: Shows no rales, crackles or wheezing. Occasional rhonchi,, upper lung field. CARDIOVASCULAR EXAMINATION: S1, S2, regular rhythm. Positive systolic murmur, right second intercostal space, left sternal border, left second intercostal space. ABDOMEN: Protuberant. Positive bowel sounds. Less distended. GENITALIA: Male. Positive Mckeon catheter. No hematuria noted. Urine is still dark, but no cloudy urine noted. EXTREMITY: Shows positive SCDs. Positive surgical scar of the right hip surgery noted. Trace swelling of the lower extremity noted. MUSCULOSKELETAL EXAMINATION: Shows elevated body mass index. NEUROLOGICALLY: The patient is alert, awake, oriented x1 to 2. PSYCHIATRY: The patient's psychiatric examination is as per Dr. Nichole's evaluation. DIAGNOSTICS: None from today. The patient's MRI of the brain was done yesterday which was negative for any acute infarct. The patient's family including the daughter and the brother has finally now agreed for the patient to be discharge to [facility]. FINAL IMPRESSION, PLAN AND DISCHARGE DIAGNOSES: 1. Status post fall. 2. Questionable syncope versus near syncope. 3. Right femoral head subcapital fracture. 4. Status post right hip pedro and right femoral hemiarthroplasty. 5. Gait dysfunction. 6. Deconditioning. 7. Psychosis. 8. Questionable behavioral disorder. 9. Questionable and possible dementia. 10. Anemia. 11. Thrombocytopenia. 12. Status post acute kidney injury with underlying chronic kidney disease, stage II/III. 13. Uncontrolled insulin-requiring diabetes mellitus with hemoglobin A1c of greater than 11. 14. History of hypertension, noncompliant. 15. History of type 1 insulin-requiring diabetes mellitus, noncompliant. 16. Pulmonary hypertension with moderate tricuspid regurgitation and elevated right ventricular systolic pressure. 17. Left leg cellulitis and superficial skin ulceration. 18. Questionable sacral decubitus ulceration, stage I or nonstageable. 19. Obesity with elevated body mass index. 20. Hypovitaminosis D. 21. Elevated PSA of greater than 8 and greater than 12. 22. Questionable history of schizophrenia versus schizoaffective disorder. 23. History of previous psychiatric illness. 24. Hypertension. 1. Right hip femoral neck fracture. 2. Status post right hip hemiarthroplasty. 3. Status post uncontrolled hypertension. 4. Confusional state with agitation and restlessness. 5. Leukopenia, anemia, thrombocytopenia and pancytopenia. 6. Granulocytosis. 7. Lymphopenia 8. Uncontrolled insulin-requiring diabetes mellitus with hemoglobin A1c of 11.6. 9. Elevated prostate-specific antigen. 10. Questionable iron deficiency. 11. Status post acute kidney injury with underlying chronic kidney disease. 12. Protein malnutrition. 13. Hypovitaminosis D. 14. Questionable urinary tract infection with proteinuria, glycosuria, microscopic hematuria, pyuria, bacteriuria. 15. Microalbuminuria. 16. Left leg coagulase-negative Staphylococcus, left leg cellulitis and skin structure infection. 17. Degenerative joint disease with status post right hip arthroplasty. 18. Bilateral renal cyst. 19. 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 20. Left ventricular ejection fraction of 59%. 21. Moderate pulmonary hypertension and moderate tricuspid regurgitation with right ventricular systolic pressure of 55 mmHg. 22. Concentric left ventricular hypertrophy. 23. Mildly thickened aortic valve. 24. Mild aortic regurgitation, mildly thickened mitral valve. 25. Moderate pulmonary arterial hypertension with elevated right ventricular systolic pressure. 26. Gait dysfunction. 27. Deconditioning. 28. Questionable near syncope versus syncope. 29. Status post fall. 30. Bibasilar atelectasis. 31. Small hiatal hernia. 32. Short mediastinal adenopathy. 33. Osteopenia. 34. Degenerative joint disease of the bones. 35. Left gynecomastia. 36. Fecal colonic stasis. 37. Questionable hemorrhagic cystitis with hematuria. 38. Status post right hip surgery. 39. Mild urinary bladder wall thickening and partially distended urinary bladder with minimal perivesical inflammation. 40. Prostatic hypertrophy. 41. Bihemispheric cerebral dysfunction. 42. Right shoulder glenohumeral osteoarthritis. 43. Right femoral neck fracture acute versus subacute. 44. Benign prostatic hypertrophy versus hyperplasia. 45. Resolving acute kidney injury with possible underlying chronic kidney disease stage II. 46. Psychosis. 47. Mild dementia. 48. Right upper extremity and right-sided weakness versus questionable right hemiparesis. 49. Hematuria. 50. Right hemiparesis, etiology undetermined. 51. Status post right hip fracture surgery. 52. Enlarge prostate with prostatomegaly. 53. Status post fall. 54. Questionable noncompliance. 55. History of noncompliance. 56. Possible schizophrenia. 57. Status post right hip bipolar hemiarthroplasty. 1. Right femoral subcapital fracture. 2. Status post right hip and right femur hemiarthroplasty. 3. Status post syncope and fall. 4. Questionable psychosis with schizophrenia and schizoaffective disorder. 5. Possible postop delirium. 6. Questionable behavioral disorder. 7. Uncontrolled insulin requiring diabetes mellitus with hemoglobin A1c of greater than 11. 8. Status post uncontrolled hypertension. 9. Anemia. 10. Acute kidney injury (resolving). 11. Underlying chronic kidney disease, stage II/III. 12. Elevated prostate-specific antigen of greater than 8 and 10. 13. Thrombocytopenia, etiology undetermined. 14. Gait dysfunction. 15. Right-sided weakness, etiology undetermined. 16. Questionable cerebral infarct versus transient ischemic attack. 17. History of hypertension and insulin requiring diabetes mellitus with severe noncompliance. 18. Obesity with elevated body mass index. 19. Colonic fecal stasis. 20. Degenerative joint disease. 21. Questionable and possible dementia. 22. Left leg diabetic ulceration with infection and skin structure infection. 23. Questionable syncope versus near syncope. 24. Questionable noncompliance and poor compliance. 1. Status post fall. 2. Right hip femoral neck fracture. 3. Status post right hip hemiarthroplasty postop day 1. 4. Possible delirium. 5. Questionable behavioral disorder. 6. Left ventricular ejection fraction of 59%. 7. Concentric left ventricular hypertrophy. 8. Mild aortic regurgitation. 9. Moderate tricuspid regurgitation with moderate pulmonary arterial hypertension with right ventricular systolic pressure of 55 mmHg. 10. 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 11. Bilateral renal cyst. 12. Hypertension. 13. Leukopenia. 14. Anemia and granulocytosis. 15. Uncontrolled type 1 insulin-requiring diabetes mellitus with hyperglycemia and hemoglobin A1c of 11.6. 16. Elevated PSA of 8.0. 17. Deconditioning. 18. Acute kidney injury with underlying chronic kidney disease stage 2. 19. Hematuria. 20. Proteinuria, glycosuria, hematuria, pyuria, bacteruria. 21. Proteinuria and microalbuminuria. 22. Left leg Gram positive cocci, left leg cellulitis and ulceration. 23. Bilateral renal cortical cyst. 24. Questionable benign prostatic hypertrophy. 25. Questionable hemorrhagic cystitis. 26. Deconditioning. 27. Gait dysfunction. 28. Questionable urinary retention. 29. Questionable constipation. 30. Toxic metabolic encephalopathy. 31. Questionable right-sided hemiparesis. 32. Questionable syncope versus near syncope. 33. Questionable urinary tract infection. 34. Questionable right-sided weakness. 35. Colonic fecal stasis. 36. Bibasilar atelectasis, scarring. 37. Small hiatal hernia. 38. Osteopenia with degenerative joint disease. 39. Left gynecomastia. 40. Pancreatic atrophy. 41. Bilateral adrenal nodule. 42. Mild bladder wall thickening. 43. Perivesicular inflammation. 44. Prostatomegaly. 45. Right hip subcapital fracture. 1. Status post fall. 2. Right femoral neck acute versus subacute fracture with nonunion and resorption. 3. Gait dysfunction. 4. Uncontrolled hypertension. 5. Leukopenia with granulocytosis. 6. Mild normocytic anemia. 7. Insulin requiring type 1 diabetes mellitus with hyperglycemia. 8. Questionable urinary tract infection with proteinuria, hematuria, glycosuria, pyuria and bacteriuria. 9. Bibasilar atelectasis and scarring. 10. Small hiatal hernia. 11. Gastroesophageal junction clips, etiology undetermined, with shotty mediastinal lymphadenopathy. 12. Osteopenia. 13. Degenerative joint disease. 14. Left gynecomastia. 15. Partially distended gallbladder with a prominent common bile duct. 16. Pancreatic atrophy. 17. Bilateral adrenal nodules. 18. Bilateral renal cyst. 19. Fecal retention. 20. Questionable cystitis with bladder wall thickening and partially distended urinary bladder and perivesicular inflammation. 21. Prostatomegaly. 22. Right hip subcapital fracture. 23. Right shoulder glenohumeral joint osteoarthritis. 24. Uncontrolled insulin requiring diabetes mellitus with hyperglycemia. 25. 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 26. Mild normocytic anemia. 27. Gait dysfunction. 28. Left lower extremity superficial ulceration. PLAN: At this time as per the social work manager notes and as per my extremely lengthy discussion with the patient's daughter, Yue; the patient's family including the patient's daughter and the son has agreed for the patient to be discharge to subacute rehab at [facility]. The patient's daughter was contacted by telephone today by me in the morning, the patient's daughter was explained about each and every patient's diagnosis. The patient's daughter was explained about the patient's each and every single diagnosis in layman's language. In addition, I have explained to the patient's daughter that the patient's multiple medical problems appear to be decompensated because the patient is not being followed up by any physician for many years and has been noncompliant with medication. The patient's daughter was clearly explained that the patient most likely will need 24-hour care and supervision upon discharge from rehab, whether the 24-hour care supervision is provided at home or alternate options like long-term placement, usp placement. The patient's daughter was also advised that the patient needs very close outpatient followup orthopedics, urology, hematology/oncology and psychiatry and neurology and medicine for adjustment and titration of his therapy and treatment and medications, which all of the above was explained to the patient's daughter in layman's language, all questions answered to her satisfaction. At present, the patient's discharge medications as per updated ambulatory orders, which was sent to [facility]. The patient's discharge medications are aspirin 81 mg p.o. daily, Caltrate 600 mg daily, clonidine 0.1 mg q. 6 hours p.r.n. for systolic blood pressure greater than or equal to 170 and/or diastolic greater than 100. The patient is on Aricept 5 mg at bedtime as per Dr. Kaur's recommendations. Lovenox 40 mg subQ daily; Drisdol 50,000 weekly; Pepcid 20 mg once or twice a day; folic acid 1 mg daily; NPH insulin 18 units with breakfast and 18 units with dinner; Lopressor 25 mg twice a day; MiraLax 17 g twice a day; Risperdal 0.5 mg 08:00 a.m. and 04:00 p.m., Risperdal 1 mg at bedtime; Flomax 0.4 mg daily; Humalog medium dose sliding scale coverage. The patient's consultation which will be continued at the subacute rehab with orthopedics, Dr. Gilmore; psychiatry, Dr. Nichole; urology, Dr. Dick and Dr. Saunders and Dr. Armas and Dr. See Diaz from hematology/oncology. The patient will be ordered CBC, CMP weekly. The patient will also be consulted with physical therapy, occupational therapy, ambulation therapy. The patient will probably require assistance with all the activities of daily living. Time spent in the entire discharge management, more than 45 minutes. Dictated and electronically signed, not read. Eliezer Hanna MD [facility]
[2017-04-05 15:44] LABS: HEPARIN-IND PLATELET AB Negative (Negative)
--- NOTE | 2017-04-06 15:22 | PQF GENQUE ---
04/06/17 Dr. Barron, Please indicate whether the Biomet hip prosthesis you placed on 03/31/17 is a synthetic substitute, a ceramic, or a metal substitute. Thank you. Clarification of your documentation is requested to better reflect the severity of illness and intensity of treatment of your patient. Indicators present [] Specify: [] [] Specify: [] [] Specify: [] [] Specify: [] Location in the medical record that reflects the above clinical findings: [] Treatment Provided: [] PHYSICIAN'S RESPONSE Based on your medical judgment of the clinical indicators outlined above please clarify the following: [] Practitioner response [] If unable to determine, please check the box, sign and date. Present On Admission (POA) Indicator: [] Present at the time of admission [] Not present at the time of admission [] Clinically Undetermined In responding to this query, please exercise your independent professional judgment. The fact that a question is asked does not imply that any particular answer is desired or expected. Thank you for your clarification on this documentation. If you have any questions please call:[ ] * Thank you, [ ] medical equipment technician [place]
== END 2017-04-04 15:52 | disposition home or self-care (01) | DRG 469 ==
LOC: ED 17:05 → ERH 21:00 → 2RSO 22:06 → 3RNO 04-02 18:17
PROVIDERS: ADMIT Internal Medicine; ATTEND Internal Medicine
PROC: 0SRR01A Replacement of Right Hip Joint, Femoral Surface with Metal Synthetic Substitute, Uncemented, Open Approach (ICD-10-PCS; principal; 2017-03-31 12:00)
DX: S72.011A Unspecified intracapsular fracture of right femur, initial encounter for closed fracture (principal); G92 Toxic encephalopathy; N17.9 Acute kidney failure, unspecified; D61.818 Other pancytopenia; K83.8 Other specified diseases of biliary tract; I45.2 Bifascicular block; G81.91 Hemiplegia, unspecified affecting right dominant side; L03.116 Cellulitis of left lower limb; L97.929 Non-pressure chronic ulcer of unspecified part of left lower leg with unspecified severity; J98.11 Atelectasis; E46 Unspecified protein-calorie malnutrition; W06.XXXA Fall from bed, initial encounter; N30.91 Cystitis, unspecified with hematuria; E66.01 Morbid (severe) obesity due to excess calories; N28.1 Cyst of kidney, acquired; Z96.641 Presence of right artificial hip joint; S80.812A Abrasion, left lower leg, initial encounter; Y92.003 Bedroom of unspecified non-institutional (private) residence as the place of occurrence of the external cause; E78.00 Pure hypercholesterolemia, unspecified; Z68.33 Body mass index [BMI] 33.0-33.9, adult; R35.0 Frequency of micturition; N40.1 Benign prostatic hyperplasia with lower urinary tract symptoms; N32.9 Bladder disorder, unspecified; Z91.19 Patient's noncompliance with other medical treatment and regimen; N18.2 Chronic kidney disease, stage 2 (mild); N41.9 Inflammatory disease of prostate, unspecified; R35.1 Nocturia; M85.80 Other specified disorders of bone density and structure, unspecified site; M19.90 Unspecified osteoarthritis, unspecified site; M40.204 Unspecified kyphosis, thoracic region; I08.2 Rheumatic disorders of both aortic and tricuspid valves; R53.81 Other malaise; R80.9 Proteinuria, unspecified; R81 Glycosuria; K59.00 Constipation, unspecified; K59.8 Other specified functional intestinal disorders; K44.9 Diaphragmatic hernia without obstruction or gangrene; N62 Hypertrophy of breast; K86.89 Other specified diseases of pancreas; E27.9 Disorder of adrenal gland, unspecified; F03.90 Unspecified dementia, unspecified severity, without behavioral disturbance, psychotic disturbance, mood disturbance, and anxiety; R33.9 Retention of urine, unspecified; E83.51 Hypocalcemia; E55.9 Vitamin D deficiency, unspecified; I27.2 Other secondary pulmonary hypertension; R59.0 Localized enlarged lymph nodes; M19.011 Primary osteoarthritis, right shoulder; F20.9 Schizophrenia, unspecified

== ENCOUNTER 2017-05-01 05:01 | Emergency (ER) | payer MEDICARE, OTHER ==
[2017-05-01 05:02] VITALS: BMI 32.8
[2017-05-01 05:10] VITALS: RESP 18; TEMP 98.5
--- NOTE | 2017-05-01 05:37 | ED PDOC ---
Arrival/HPI - General Chief Complaint: Abdominal Pain Time Seen by Provider: 05/01/17 05:12 Historian: Patient - History of Present Illness Narrative History of Present Illness (Text): 05/01/17 05:15 Early JR Tadeo is a 76 year old male coming from Rehab, whose past medical history includes hip fracture and repair on right, who presents to the emergency department complaining of abdominal cramping and discomfort for a few hours. Patient describes his abdominal discomfort as his stomach "folding up." Patient notes that he takes medication for hip pain and his last bowel movement was yesterday. Patient denies any nausea, vomiting, fever, chills, chest pain, shortness of breath, abdominal surgeries, or any other complaints at this time. Time/Duration: 4-6 hours Symptom Onset: Gradual Symptom Course: Unchanged Severity Level: Mild Activities at Onset: Light Context: Home Past Medical History - Provider Review Nursing Documentation Reviewed: Yes - Infectious Disease Hx of Infectious Diseases: None - Tetanus Immunization Tetanus Immunization: Unknown - Cardiac Hx Cardiac Disorders: Yes Hx Hypertension: Yes - Pulmonary Hx Respiratory Disorders: No - Neurological Hx Neurological Disorder: No - HEENT Hx HEENT Disorder: No - Renal Hx Renal Disorder: No - Endocrine/Metabolic Hx Diabetes Mellitus Type 2: Yes - Hematological/Oncological Hx Blood Transfusions: No - Integumentary Hx Dermatological Disorder: No - Musculoskeletal/Rheumatological Hx Musculoskeletal Disorders: Yes (uses walker) Hx Falls: Yes - Gastrointestinal Hx Gastrointestinal Disorders: No - Genitourinary/Gynecological Hx Genitourinary Disorders: No - Psychiatric Hx Psychophysiologic Disorder: (etoh) Hx Substance Use: No Family/Social History - Physician Review Nursing Documentation Reviewed: Yes Family/Social History: No Known Family HX Smoking Status: Never Smoked Hx Alcohol Use: (denies) Hx Substance Use: No Allergies/Home Meds Allergies/Adverse Reactions: Allergies No Known Allergies Allergy (Verified 03/30/17 17:42) Home Medications: Home Meds Medication Instructions Recorded Confirmed Amino Acids/Protein Hydrolys 30 ml PO BID 05/01/17 05/01/17 [Pro-Stat Profile 887 ml] Aspirin [Adult Low Dose Aspirin EC] 81 mg PO DAILY 05/01/17 05/01/17 Calcium Carbonate [Caltrate 600] 600 mg PO DAILY 05/01/17 05/01/17 Cholecalciferol (Vitamin D3) 50,000 unit PO QWK 05/01/17 05/01/17 [Vitamin D3] Donepezil [Aricept] 5 mg PO HS 05/01/17 05/01/17 Enoxaparin [Lovenox] 40 mg SQ DAILY 05/01/17 05/01/17 Famotidine [Pepcid] 20 mg PO DAILY 05/01/17 05/01/17 Folic Acid 1 mg PO DAILY 05/01/17 05/01/17 Insulin Lispro [humALOG] 0 unit SQ PRN PRN 05/01/17 05/01/17 Metoprolol Tartrate [Lopressor] 25 mg PO BID 05/01/17 05/01/17 Polyethylene Glycol 3350 [Miralax] 17 gm PO BID 05/01/17 05/01/17 Tamsulosin HCl [Flomax] 0.4 mg PO DAILY 05/01/17 05/01/17 cloNIDine [clonidine HCl] 0.1 mg PO Q6H PRN 05/01/17 05/01/17 Review of Systems - Physician Review All systems were reviewed & negative as marked: Yes - Review of Systems Constitutional: absent: Fevers, Night Sweats Eyes: absent: Vision Changes ENT: absent: Hearing Changes Respiratory: absent: SOB, Cough Cardiovascular: absent: Chest Pain Gastrointestinal: Abdominal Pain (cramping and "stomach folding"). absent: Diarrhea, Nausea Genitourinary Male: absent: Dysuria Musculoskeletal: absent: Arthralgias Skin: absent: Rash Neurological: absent: Headache Endocrine: absent: Diaphoresis Hemo/Lymphatic: absent: Adenopathy Physical Exam Vital Signs Reviewed: Yes Vital Signs Temp Pulse Resp BP Pulse Ox 05/01/17 05:09 98.5 F 85 18 130/88 98 Temperature: Afebrile Blood Pressure: Normal Pulse: Regular Respiratory Rate: Normal Appearance: Positive for: Well-Appearing, Non-Toxic, Comfortable Pain Distress: None Mental Status: Positive for: Alert and Oriented X 3 - Systems Exam Head: Present: Atraumatic, Normocephalic Pupils: Present: PERRL Extroacular Muscles: Present: EOMI Conjunctiva: Present: Normal Mouth: Present: Moist Mucous Membranes Respiratory/Chest: Present: Clear to Auscultation, Good Air Exchange. No: Respiratory Distress, Accessory Muscle Use Abdomen: Present: Distention, Other (tympanic). No: Tenderness, Normal Bowel Sounds (hyperactive bowel sounds) Upper Extremity: Present: Edema (bilateral pitting edema +1 to +2) Lower Extremity: Present: Edema (bilateral pitting edema +1 to +2) Neurological: Present: GCS=15, CN II-XII Intact, Speech Normal Skin: Present: Warm, Dry, Normal Color. No: Rashes Psychiatric: Present: Alert, Oriented x 3, Normal Insight, Normal Concentration Medical Decision Making ED Course and Treatment: 05/01/17 05:41 Impression: 76 year old male coming from rehab complaining of abdominal cramps and "stomach folding" for a few hours. Differential Diagnosis included but are not limited to: Plan: -- Abdomen and Pelvis CT w/ contrast -- Labs -- Reassess and disposition Prior Visits: Notes and results from previous visits were reviewed. Patient was last seen in the emergency department on 02/27/17 for weakness and inability to ambulate for 2 days. Patient was admitted to telemetry for further evaluation. Progress Notes: - RAD Interpretation Radiology Orders: 05/01/17 05:31 ABD & PELVIS IV CONTRAST ONLY [CT] Stat Disposition/Present on Arrival - Present on Arrival History of DVT/PE: No History of Uncontrolled Diabetes: No Urinary Catheter: No History of Decub. Ulcer: No History Surgical Site Infection Following: None - Disposition Forms: [facility] ([place])
[2017-05-01 06:54] LABS: BASO # 0.02 K/mm3 (0.0-2.0); BASO % 0.2 % (0.0-3.0); EOS # 0.1 (0.0-0.7); EOS % 0.7 % (1.5-5.0); GRAN # 10.08 (1.4-6.5); GRAN % 86.7 % (50.0-68.0); HEMATOCRIT 31.7 % (42.0-52.0); LYMPH # 0.7 (1.2-3.4); LYMPH % 6.1 % (22.0-35.0); MEAN CORPUSCULAR HEMOGLOBIN 28.4 pg (25.0-35.0); MEAN CORPUSCULAR HGB CONC 31.9 g/dl (31.0-37.0); MONO # 0.7 (0.1-0.6); MONO % 6.3 % (1.0-6.0); RED CELL DISTRIBUTION WIDTH 15.6 % (11.5-14.5); WHITE BLOOD COUNT 11.6 10^3/ul (4.5-11.0)
[2017-05-01 07:01] LABS: ALB/GLOB RATIO 0.8 (1.1-1.8); BILIRUBIN,TOTAL 0.6 mg/dL (0.2-1.3); CALCIUM 8.2 mg/dL (8.4-10.5); POTASSIUM 4.9 mmol/L (3.6-5.0); TOTAL PROTEIN 7.2 g/dL (5.8-8.3)
[2017-05-01 07:09] LABS: INR 1.08 (0.93-1.08)
--- NOTE | 2017-05-01 07:35 | ED PDOC ---
Physical Exam Vital Signs Reviewed: Yes Vital Signs Temp Pulse Resp BP Pulse Ox 05/01/17 08:01 86 18 126/73 98 05/01/17 05:09 98.5 F 85 18 130/88 98 Temperature: Afebrile Blood Pressure: Normal Pulse: Regular Respiratory Rate: Normal Medical Decision Making ED Course and Treatment: 05/01/17 07:34 Patient endorsed to me by Dr. Machuca at 07:00, pending CT and disposition. Patient presented with abdominal pain. On examination, abdomen distended and hypertympanic. Patient denies any complaints at this time. Report Date : 05/01/2017 09:46:13 PROCEDURE: CT Abdomen and Pelvis with contrast Dictator : Eliazar Sutton MD IMPRESSION: Bilateral pleural effusion and lower lobe compressive atelectasis. Anasarca. Minimal ascites and minimal retroperitoneal fluid. Patchy increased density at mesenteries superior to the urinary bladder, uncertain significance. Correlate for cystitis. It is likely that the combination of pleural effusions , anasarca and mild ascites and retroperitoneal fluid reflects congestive heart failure or a fluid overload state. Additional minor findings as above. 05/01/17 12:[address] Hanna in detail states he saw pt in the hospital states pt's abd exam is baseline distended and hypertympanic plan to dc back to [facility] on cipro 250mg PO BID x7 days, and he will f/u with pt there. pt in no distress, denies complaints, states he feels comfortable leaving the ER at this time - Lab Interpretations Lab Results: 05/01/17 06:41 05/01/17 06:41 Lab Results 05/01/17 12:01: Urine Color Light red, Urine Appearance Bloody, Urine pH >=9.0, Ur Specific [place] <= 1.005, Urine Protein >=300 H, Urine Glucose (UA) Negative , Urine Ketones Negative, Urine Blood Large H, Urine Nitrate Positive H, Urine Bilirubin Small H, Urine Urobilinogen 1.0 H, Ur Leukocyte Esterase Large H, Urine RBC Tntc, Urine WBC Tntc, Ur Epithelial Cells None, Uric Acid Crystals Rare, Amorphous Sediment Few, Urine Bacteria Many, RBC Casts 0 - 2 H, WBC Casts 0 - 2 H, Urine Other Uyeast 05/01/17 06:41: PT 11.7, INR 1.08 05/01/17 06:41: Sodium 144, Potassium 4.9, Chloride 109 H, Carbon Dioxide 27, Anion Gap 13, BUN 33 H, Creatinine 1.5, Est GFR ( Amer) 55, Est GFR (Non- Af Amer) 46, Random Glucose 98, Calcium 8.2 L, Total Bilirubin 0.6, AST 43, ALT 41, Alkaline Phosphatase 183 H D, Total Protein 7.2, Albumin 3.1, Globulin 4.1, Albumin/Globulin Ratio 0.8 L 05/01/17 06:41: WBC 11.6 H D, RBC 3.56, Hgb 10.1 L, Hct 31.7 L, MCV 89.0 D, MCH 28.4, MCHC 31.9, RDW 15.6 H, Plt Count 350, MPV 9.0, Gran % 86.7 H, Lymph % (Auto) 6.1 L, [place] % (Auto) 6.3 H, Eos % (Auto) 0.7 L, Baso % (Auto) 0.2, Gran # 10.08 H, Lymph # 0.7 L, [place] # 0.7 H, Eos # 0.1, Baso # 0.02 - RAD Interpretation Radiology Orders: 05/01/17 05:31 ABD & PELVIS IV CONTRAST ONLY [CT] Stat - Medication Orders Current Medication Orders: Sodium Chloride (Sodium Chloride 0.9%) 1,000 mls @ 100 mls/hr IV .Q10H MAGDALENA Last Admin: 05/01/17 08:35 Dose: 100 mls/hr eMAR Start Stop Document 05/01/17 08:35 MR (Rec: 05/01/17 08:35 [id number]) Intravenous Solution Start Date 05/01/17 Start Time 08:35 Discontinued Medications Piperacillin Sod/Tazobactam Sod (Zosyn 4.5 Gm In Ns 100ml) 4.5 gm in 100 mls @ 200 mls/hr IVPB STAT STA PRN Reason: Protocol Stop: 05/01/17 08:33 Last Admin: 05/01/17 09:30 Dose: 200 mls/hr eMAR Start Stop Document 05/01/17 09:30 MR (Rec: 05/01/17 09:30 [id number]) Intravenous Solution Start Date 10/06/17 Start Time 09:30 End Date 05/01/17 End time 10:00 Total Infusion Time 30 - Scribe Statement The provider has reviewed the documentation as recorded by the Lexi Treviño Provider Flipibhernando Attestation: All medical record entries made by the Scribe were at my direction and personally dictated by me. I have reviewed the chart and agree that the record accurately reflects my personal performance of the history, physical exam, medical decision making, and the department course for this patient. I have also personally directed, reviewed, and agree with the discharge instructions and disposition. Disposition/Present on Arrival - Present on Arrival Any Indicators Present on Arrival: No History of DVT/PE: No History of Uncontrolled Diabetes: No Urinary Catheter: No History of Decub. Ulcer: No History Surgical Site Infection Following: None - Disposition Have Diagnosis and Disposition been Completed?: Yes Diagnosis: UTI (urinary tract infection) Disposition: HOME/ ROUTINE Disposition Time: 12:37 Patient Plan: Discharge Condition: GOOD Discharge Instructions (ExitCare): Urinary Tract Infection in Men (ED), Mckeon Catheter Placement and Care (ED) Additional Instructions: PLEASE RETURN TO THE EMERGENCY DEPARTMENT FOR NEW OR WORSENING SYMPTOMS. RETURN RIGHT AWAY IF YOU CANNOT FOLLOW UP WITH YOUR PRIMARY CARE DOCTOR, CLINIC, OR SPECIALIST IN 1-2 DAYS. Prescriptions: Ciprofloxacin HCl [Cipro] 250 mg PO BID #14 tablet Referrals: Eliezer Hanna MD [Primary Care Provider] - Follow up with primary Josef Dick MD [Staff Provider] - Follow up with primary Christiano Saunders MD [Staff Provider] - Follow up with primary Forms: [employer] (Maltese)
[2017-05-01] MEDS ORDERED: Piperacill/Tazo 4.5gm in NS 4.5 GM/100 ML BAG IVPB STA (08:04)
[2017-05-01] MEDS ORDERED: Sodium Chloride 0.9% 1,000 ML IV SCH (08:15)
[2017-05-01] MEDS ORDERED: Iodixanol 320 MG/ML 100 ML BOTTLE IV ONE (08:31)
--- NOTE | 2017-05-01 09:47 | CT ---
PROCEDURE: CT Abdomen and Pelvis with contrast HISTORY: abdominal distentsion COMPARISON: 03/30/2017 TECHNIQUE: Contrast dose: 100 mL Visipaque 320 Radiation dose: Total exam DLP = 1317.18 mGy-cm. This CT exam was performed using one or more of the following dose reduction techniques: Automated exposure control, adjustment of the mA and/or kV according to patient size, and/or use of iterative reconstruction technique. FINDINGS: LOWER THORAX: Bilateral small moderate pleural effusion with bilateral lower lobe compressive atelectasis. Mild cardiomegaly. LIVER: Normal size, contour and attenuation. Multiple small nonspecific low-attenuation lesions in the liver, largest 12 mm in the lateral segment left hepatic lobe. Nonspecific and unchanged from prior noncontrast CT examination. GALLBLADDER AND BILE DUCTS: Unremarkable. PANCREAS: Unremarkable. No gross lesion or ductal dilatation. SPLEEN: Unremarkable. ADRENALS: Bilateral adrenal masses, 1.6 cm the right and 1.6 cm on the left. Likely adrenal adenomas. KIDNEYS AND URETERS: Multiple bilateral renal cysts, largest mid left kidney, 5.1 cm. Consider correlation with ultrasound examination. VASCULATURE: Unremarkable. No aortic aneurysm. BOWEL: Unremarkable. No obstruction. No gross mural thickening. APPENDIX: Normal appendix. PERITONEUM: There is minimal ascites. There is patchy increased attenuation within the supra vesicle, of uncertain significance. The bladder wall is minimally. Please correlate for possible cystitis. There is no generalized perivesical inflammatory change. There is small amount of fluid seen in the retroperitoneum along the superior aspect of both psoas muscles. These findings are changed since 03/30/2017. . LYMPH NODES: Unremarkable. No enlarged lymph nodes. BLADDER: Mild bladder wall thickening. Nonspecific. Mckeon catheter. Correlate for cystitis. REPRODUCTIVE: Unremarkable prostate. Evaluation limited due to beam hardening artifact arising from a right hip prosthesis. BONES: No acute fracture. Right hip arthroplasty. OTHER FINDINGS: Small to moderate bilateral pleural effusion and bilateral lower lobe compressive atelectasis, new since 03/30/2017. Mild ascites and mild retroperitoneal fluid. Ill-defined increased opacity in supravesical fat, IMPRESSION: Bilateral pleural effusion and lower lobe compressive atelectasis. Anasarca. Minimal ascites and minimal retroperitoneal fluid. Patchy increased density at mesenteries superior to the urinary bladder, uncertain significance. Correlate for cystitis. It is likely that the combination of pleural effusions, anasarca and mild ascites and retroperitoneal fluid reflects congestive heart failure or a fluid overload state. Additional minor findings as above.
[2017-05-01 12:07] LABS: PH,URINE >=9.0 (4.7-8.0); URINE BILIRUBIN SMALL (NEGATIVE); URINE BLOOD LARGE (NEGATIVE); URINE GLUCOSE (UA) NEGATIVE (NEGATIVE); URINE KETONE NEGATIVE (NEGATIVE); URINE LEUKOCYTE ESTERASE LARGE Leu/uL (NEGATIVE); URINE PROTEIN >=300 mg/dL (<30 mg/dL)
[2017-05-01 12:17] LABS: URINE APPEARANCE BLOODY (CLEAR); URINE COLOR LIGHT RED (YELLOW)
[2017-05-01 12:18] LABS: URINE RBC TNTC /hpf (0-2); URINE WBC TNTC /hpf (0-6)
[2017-05-01 12:19] LABS: URINE BACTERIA MANY (NEG); URINE RED BLOOD CELL CAST 0 - 2 /hpf
[2017-05-01 12:24] LABS: URINE AMORPHOUS SEDIMENT FEW; URINE URIC ACID CRYSTALS RARE /hpf
[2017-05-01 14:57] VITALS: BP 125/81; PULSE 99; O2SAT 97
--- NOTE | 2017-05-03 02:18 | CON ---
DATE: 05/01/2017 EMERGENCY ROOM EVALUATION AND CONSULTATION HISTORY OF PRESENT ILLNESS: The patient is a 76-[facility]-old [place] [facility]. The patient's nurse called my office number and spoke to me around 4:00 a.m. this morning that the patient has been complaining of abdominal pain, tightness, has been screaming all night with that. At that time, the patient's nurse was advised to send the patient to [facility] for evaluation of the patient's symptoms. The patient is complaining of abdominal cramping and discomfort. REVIEW OF SYSTEMS: Thirteen-system review was done, pertinent positive, negative dictated above. CODE STATUS: Full code. LIVING WILL, ADVANCE DIRECTIVE: None. HEIGHT: 5 feet 7 inches. BODY MASS INDEX: 31. ALLERGIES: NONE. SOCIAL HISTORY: Negative for smoking, negative for alcohol, negative for drug use, communicable or transmissible disease. OCCUPATIONAL HISTORY: The patient is disabled with vision impaired. FAMILY HISTORY: Not known. The patient was recently discharged on 04/04/2017. The patient was discharged from [facility] on 04/04/2017 to [facility]. DISCHARGE MEDICATIONS: Have been Flomax 0.4 mg daily, MiraLax 17 grams twice a day, Lopressor 25 mg twice a day, Humalog sliding scale coverage, folic acid 1 mg daily, Pepcid 20 mg daily, Lovenox 40 mg subcutaneously daily, Aricept 5 mg at bed time, Clonidine 0.1 mg q. 6 hours. p.r.n., vitamin D3 50,000 units daily, and aspirin 81 mg daily. The patient is discharged on aspirin 81 mg daily, Caltrate 600 mg daily, Clonidine 0.1 mg q. 6 hours. p.r.n. for systolic blood pressure greater than or equal to 170 or diastolic greater than 100, Aricept 5 mg daily, Lovenox 40 mg subcutaneously daily, vitamin D 50,000 weekly, Pepcid 20 mg daily, folic acid 1 mg daily, NPH insulin 18 units for breakfast and 18 units for dinner, Lopressor 25 mg twice a day, MiraLax 17 g twice a day, Risperdal 0.5 mg at 8:00 a.m., and 4:00 p.m., Risperdal 1 mg at bed time, Flomax 0.4 mg daily, Humalog medium dose sliding scale coverage a.c. and at bed time. PAST MEDICAL AND SURGICAL HISTORY: History of fall, history of syncope versus near syncope, history of vision impairment, history of right femoral subcapital fracture, history of right hip hemiarthroplasty, and right femoral right hip hemiarthroplasty, history of gait dysfunction, history of deconditioning, history of obesity, history of insulin requiring diabetes mellitus, history of psychosis, history of behavioral disorder, history of dementia, history of anemia, history of thrombocytopenia, history of acute kidney injury with underlying chronic kidney disease stage III, history of uncontrolled insulin requiring diabetes mellitus with hemoglobin A1c of greater than 11, history of hypertension, history of pulmonary hypertension with moderate tricuspid regurgitation and elevated right ventricular systolic pressure, history of left leg cellulitis and superficial skin ulceration, history of sacral decubitus ulceration stage I versus non-stageable, history of obesity, history of hypovitaminosis D, history of elevated prostatic specific antigen of greater than 8 and greater than 12, history of questionable schizophrenia versus schizo-affective disorder, history of previous multiple psychiatric hospitalizations, history of hypertension, history of right hip femoral neck fracture, history of uncontrolled hypertension, history of toxic metabolic encephalopathy with confusional state with agitation or restlessness, history of pancytopenia with leukopenia, anemia, and thrombocytopenia, history of granulocytosis and lymphopenia, history of questionable iron deficiency, history of protein malnutrition, history of questionable urinary tract infection, proteinuria, glycosuria, microscopic hematuria, pyuria and bacteriuria, history of microalbuminuria, history of left leg coagulase-negative Staphylococcus left leg cellulitis and skin structure infection, history of degenerative joint disease of the hips, history of bilateral renal cysts, 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, history of left ventricular ejection fraction of 59%, history of moderate pulmonary hypertension with moderate tricuspid regurgitation and right ventricle systolic pressure of 55 mmHg, history of concentric left ventricular hypertrophy, history of mildly thickened mitral valve, and mild aortic regurgitation, and mildly thickened aortic valve, history of small hiatal hernia, history of bibasilar atelectasis, history of shotty mediastinal adenopathy, history of osteopenia, history of degenerative joint disease of the bones, history of gynecomastia, history of colonic fecal stasis and retention, history of hemorrhagic cystitis with hematuria, and history of right hip surgery. The patient's past medical history significant for prostate hypertrophy versus prostate hyperplasia, history of psychosis, history of dementia, history of hematuria, history of questionable right upper extremity weakness, history of right shoulder degenerative joint disease and arthritis, history of right hip bipolar hemiarthroplasty, history of gait dysfunction, history of acute kidney injury, history of underlying chronic kidney disease stage III, history of thrombocytopenia (resolved), history of questionable TIA, history of obesity, history of left leg diabetic ulceration with infection and skin structure infection, history of questionable urinary retention, history of bilateral renal cyst, history of prostatic hypertrophy with history of hemorrhagic cystitis, history of urinary retention, history of constipation, history of fecal stasis, history of bibasilar scarring versus atelectasis, history of small hiatal hernia, history of osteopenia, history of gynecomastia, history of prostatomegaly, history of leukopenia and granulocytosis, history of bibasilar atelectasis, history of questionable gastroesophageal junctional clips, etiology undetermined with shotty mediastinal lymphadenopathy, history of prominent common bile duct with partially distended gallbladder, history of pancreatic atrophy, history of bilateral adrenal nodules, history of bilateral renal cyst, history of fecal retention, history of questionable cystitis with bladder wall thickening and partially distended urinary bladder of perivesical inflammation, history of prostatomegaly, history of right shoulder glenohumeral joint osteoarthritis, history of left lower extremity superficial ulceration, history of insulin-requiring diabetes mellitus, history of hypocalcemia, history of dementia and history of gastroesophageal reflux. The patient's past medical history is significant for recurrent fall, history of disabled, history of dyslipidemia, history of poor compliance, history of leukopenia and granulocytosis. The patient was seen in stretcher number 6 and then at CAT scan. The patient is seen lying in the stretcher. PHYSICAL EXAMINATION VITAL SIGNS: T-max of 98.5, pulse of 85, 86 and 99, blood pressure of 126/73, 125/81 and 130/88, respirations of 18, and O2 saturation of 97% to 99%. HEENT: The patient's head examination is normocephalic and atraumatic. HEENT examination shows pinkish pale conjunctivae. Positive decreased vision noted. NECK: No neck rigidity. Soft carotid bruits. CHEST: Kyphosis. LUNGS: Shows no rales, crackles or wheezing. ABDOMEN: Distended, protuberant, slightly tympanic, questionable voluntary guarding. GENITALIA: Male. Positive Mckeon catheter. EXTREMITIES: Show no pitting edema, no calf tenderness and no Homans' sign. NEUROLOGIC: The patient is alert, awake and responsive, lying in the bed. Body mass index is elevated at 31.3. Cranial nerves II through XII limited. Gait examination could not be assessed. VASCULAR: Palpable pulses. PSYCHIATRIC: Negative for suicidal or homicidal ideation. Negative for auditory or visual hallucination. DIAGNOSTIC DATA: WBC of 11.6, hemoglobin and hematocrit of 10.1 and 31.7, and platelets 350 with granulocytes of 87. PT/PTT of 11.7. Sodium of 144, potassium of 3.9, chloride of 109, CO2 of 27, anion gap of 13, BUN of 33 and creatinine of 1.5. GFR of 55, glucose of 98, calcium of 8.2, and alkaline phosphatase of 183. Urine analysis; pH of greater than 9.0, specific gravity less than 0.005, urine protein greater than 300, large blood, positive nitrite, positive large leukocyte esterase, urine yeast noted and many bacteria noted. Blood cultures and urine cultures sent. The patient's CAT scan was done in the emergency room which was reviewed. The patient's management was discussed with the ER physician Dr. Palacios. IMPRESSION AND PLAN: 1. Abdominal pain, etiology unclear. 2. Chronically distended and protuberant abdomen. 3. Urinary retention. 4. Indwelling Mckeon catheter secondary to prostatic hypertrophy and urinary retention. 5. Moderate bilateral pleural effusion with bibasilar atelectasis and cardiomegaly. 6. Nonspecific low attenuation static lesions. 7. Bilateral adrenal masses with adrenal adenoma. 8. Multiple bilateral renal cyst. 9. Gait dysfunction. 10. Ascites. 11. Possible cystitis. 12. Right hip prosthesis. 13. Small to moderate bilateral pleural effusion and bibasilar atelectasis. 14. Hypertension. 15. Psychosis. 16. Dementia. 17. Leukocytosis and granulocytosis. 16. Normocytic anemia. 17. Mild prerenal kidney injury. 18. Elevated alkaline phosphatase, etiology undetermined. 19. Questionable urinary tract infection and cystitis with proteinuria, hematuria, pyuria, bacteruria, questionable funguria and questionable pyuria. PLAN: At this time, patient was seen in the emergency room by Dr. Palacios and patient was hydrated. The patient was given IV fluid hydration. The patient was given Zosyn 4.5 grams in the emergency room. The [facility] [place] [facility] 250 twice a day for 7 to 10 days. The patient's discharge followup was ordered with Dr. Dick and Dr. Saunders. Dictated and electronically signed, not read. Signing off Eliezer Hanna MD Eliezer Hanna MD MTDD
== END 2017-05-01 15:00 | disposition home or self-care (01) ==
LOC: ED 05:01
DX: N39.0 Urinary tract infection, site not specified (principal); I10 Essential (primary) hypertension; E11.9 Type 2 diabetes mellitus without complications
CPT/HCPCS: 74177; 80053; 81001; 85025; 85610; 87040; 87086; 87181; 87205; 96365; 99284; J2543; J7040; Q9967

== ENCOUNTER 2017-05-15 19:51 | Inpatient (IN) | payer MEDICARE, OTHER ==
[2017-05-15 20:01] VITALS: BMI 36.5
[2017-05-15 20:56] LABS: URINE BILIRUBIN NEGATIVE (NEGATIVE); URINE BLOOD MODERATE (NEGATIVE); URINE GLUCOSE (UA) NEGATIVE (NEGATIVE); URINE KETONE NEGATIVE (NEGATIVE); URINE LEUKOCYTE ESTERASE MODERATE Leu/uL (NEGATIVE); URINE PROTEIN TRACE mg/dL (<30 mg/dL); URINE UROBILINOGEN 0.2 E.U./dL (<1 E.U./dL)
[2017-05-15 20:57] LABS: URINE APPEARANCE SL CLOUDY (CLEAR); URINE COLOR YELLOW (YELLOW)
[2017-05-15 21:04] LABS: BASO # 0.02 K/mm3 (0.0-2.0); BASO % 0.2 % (0.0-3.0); EOS # 0.1 (0.0-0.7); EOS % 0.7 % (1.5-5.0); GRAN # 6.42 (1.4-6.5); GRAN % 80.2 % (50.0-68.0); HEMATOCRIT 27.6 % (42.0-52.0); LYMPH % 12.4 % (22.0-35.0); MEAN CELL VOLUME 88.5 fl (80.0-105.0); MEAN CORPUSCULAR HEMOGLOBIN 28.5 pg (25.0-35.0); MEAN CORPUSCULAR HGB CONC 32.2 g/dl (31.0-37.0); MEAN PLATELET VOLUME 10.3 fl (7.0-11.0); MONO # 0.5 (0.1-0.6); MONO % 6.5 % (1.0-6.0); RED CELL DISTRIBUTION WIDTH 17.2 % (11.5-14.5)
[2017-05-15 21:06] LABS: URINE BACTERIA MANY (NEG); URINE EPITHELIAL CELLS 0 - 2 /hpf (0-5); URINE WBC 15 - 20 /hpf (0-6); VENOUS BLOOD GAS BASE EXCESS 2.9 mmol/L (0.0-2.0); VENOUS BLOOD PH 7.42 (7.32-7.43)
[2017-05-15 21:08] LABS: INR 1.28 (0.93-1.08)
[2017-05-15 21:13] LABS: ALB/GLOB RATIO 0.7 (1.1-1.8); ALKALINE PHOSPHATASE 204 U/L (38-126); ALT/SGPT 71 U/L (7-56); AST/SGOT 60 U/L (17-59); BILIRUBIN,TOTAL 0.3 mg/dL (0.2-1.3); BLOOD UREA NITROGEN 33 mg/dL (7-21); CALCIUM 8.1 mg/dL (8.4-10.5); CARBON DIOXIDE 26 mmol/L (21-33); CHLORIDE 109 mmol/L (98-107); GFR AFRICAN-AMERICAN > 60; GLUCOSE,RANDOM 205 mg/dL (70-110); PHOSPHOROUS 3.4 mg/dL (2.5-4.5); POTASSIUM 5.3 mmol/L (3.6-5.0); SODIUM 139 mmol/L (132-148); TOTAL PROTEIN 6.9 g/dL (5.8-8.3)
[2017-05-15 21:26] LABS: TROPONIN I < 0.01 ng/mL
--- NOTE | 2017-05-15 21:27 | ED PDOC ---
Arrival/HPI - General Chief Complaint: Abnormal Labs Time Seen by Provider: 05/15/17 19:54 Historian: Patient - History of Present Illness Narrative History of Present Illness (Text): 05/15/17 20:05 Douglas Tadeo Jr is a 76 year old male, whose past medical history includes diabetes and hypertension, who presents to the Emergency department [facility] complaining for abnormal lab work today. As per nursing documentation, patient has low hemoglobin. Patient febrile on arrival to Emergency department. Patient denies pain, shortness of breath, nausea, vomiting , diarrhea, urinary symptoms, back pain, neck pain, headache, dizziness, or any other complaints. Time/Duration: Other (today) Symptom Onset: Gradual Symptom Course: Unchanged Activities at Onset: Light Context: Home Past Medical History - Provider Review Nursing Documentation Reviewed: Yes - Infectious Disease Hx of Infectious Diseases: None - Tetanus Immunization Tetanus Immunization: Unknown - Cardiac Hx Cardiac Disorders: Yes Hx Hypertension: Yes Hx Peripheral Edema: Yes - Pulmonary Hx Respiratory Disorders: No - Neurological Hx Neurological Disorder: No - HEENT Hx HEENT Disorder: No - Renal Hx Renal Disorder: No - Endocrine/Metabolic Hx Diabetes Mellitus Type 2: Yes - Hematological/Oncological Hx Blood Transfusions: No - Integumentary Hx Dermatological Disorder: No - Musculoskeletal/Rheumatological Hx Musculoskeletal Disorders: Yes (uses walker) Hx Falls: Yes - Gastrointestinal Hx Gastrointestinal Disorders: No - Genitourinary/Gynecological Hx Genitourinary Disorders: No - Psychiatric Hx Psychophysiologic Disorder: (etoh) Hx Substance Use: No - Anesthesia Hx Anesthesia: Yes Family/Social History - Physician Review Nursing Documentation Reviewed: Yes Family/Social History: Unknown Family HX Smoking Status: Never Smoked Hx Alcohol Use: (denies) Hx Substance Use: No Allergies/Home Meds Allergies/Adverse Reactions: Allergies No Known Allergies Allergy (Verified 05/15/17 19:57) Home Medications: Home Meds Medication Instructions Recorded Confirmed Amino Acids/Protein Hydrolys 30 ml PO BID 05/01/17 05/15/17 [Pro-Stat Profile 887 ml] Aspirin [Adult Low Dose Aspirin EC] 81 mg PO DAILY 05/01/17 05/15/17 Calcium Carbonate [Caltrate 600] 600 mg PO DAILY 05/01/17 05/15/17 Cholecalciferol (Vitamin D3) 50,000 unit PO QWK 05/01/17 05/15/17 [Vitamin D3] Donepezil [Aricept] 5 mg PO HS 05/01/17 05/15/17 Enoxaparin [Lovenox] 40 mg SQ DAILY 05/01/17 05/15/17 Famotidine [Pepcid] 20 mg PO DAILY 05/01/17 05/15/17 Folic Acid 1 mg PO DAILY 05/01/17 05/15/17 Insulin Lispro [humALOG] 0 unit SQ PRN PRN 05/01/17 05/15/17 Metoprolol Tartrate [Lopressor] 25 mg PO BID 05/01/17 05/15/17 Polyethylene Glycol 3350 [Miralax] 17 gm PO BID 05/01/17 05/15/17 Tamsulosin HCl [Flomax] 0.4 mg PO DAILY 05/01/17 05/15/17 cloNIDine [clonidine HCl] 0.1 mg PO Q6H PRN 05/01/17 05/15/17 Review of Systems - Physician Review All systems were reviewed & negative as marked: Yes - Review of Systems Constitutional: Fevers Eyes: Normal ENT: Normal Respiratory: Normal. absent: SOB, Cough Cardiovascular: Normal. absent: Chest Pain Gastrointestinal: Normal. absent: Abdominal Pain, Diarrhea, Nausea, Vomiting Genitourinary Male: Normal. absent: Dysuria, Frequency, Hematuria, Urinary Output Changes Musculoskeletal: Normal. absent: Back Pain, Neck Pain Skin: Normal. absent: Rash Neurological: Normal. absent: Headache, Dizziness Endocrine: Normal Hemo/Lymphatic: Other (+low hemoglobin) Psychiatric: Normal Physical Exam Vital Signs Reviewed: Yes Vital Signs Temp Pulse Resp BP Pulse Ox 05/16/17 01:10 99.3 F 78 16 142/85 100 05/16/17 00:20 99.1 F 72 16 137/96 H 05/16/17 00:04 99.2 F 75 16 168/90 H 05/15/17 23:30 76 16 161/82 H 100 05/15/17 23:19 76 16 156/81 H 100 05/15/17 23:03 78 16 151/81 H 100 05/15/17 22:46 78 16 147/96 H 100 05/15/17 22:31 75 16 161/83 H 100 05/15/17 22:16 76 16 156/79 H 100 05/15/17 22:00 79 17 150/79 100 05/15/17 21:17 78 20 143/67 100 05/15/17 21:06 80 19 135/71 100 05/15/17 20:48 77 19 134/71 100 05/15/17 20:28 98.9 F 05/15/17 20:06 100.6 F H 81 23 138/75 100 Temperature: Febrile Blood Pressure: Normal Pulse: Regular Respiratory Rate: Normal Appearance: Positive for: Well-Appearing, Non-Toxic, Comfortable Pain Distress: None Mental Status: Positive for: Alert and Oriented X 3 - Systems Exam Head: Present: Atraumatic, Normocephalic Pupils: Present: PERRL Extroacular Muscles: Present: EOMI Conjunctiva: Present: Normal Mouth: Present: Moist Mucous Membranes Neck: Present: Normal Range of Motion Respiratory/Chest: Present: Clear to Auscultation, Good Air Exchange. No: Respiratory Distress, Accessory Muscle Use Cardiovascular: Present: Regular Rate and Rhythm, Normal S1, S2. No: Murmurs Abdomen: Present: Normal Bowel Sounds. No: Tenderness, Distention, Peritoneal Signs Back: Present: Normal Inspection Upper Extremity: Present: Normal Inspection. No: Cyanosis, Edema Lower Extremity: Present: Normal Inspection. No: Edema Neurological: Present: GCS=15, CN II-XII Intact, Speech Normal Skin: Present: Warm, Dry, Normal Color. No: Rashes Psychiatric: Present: Alert, Oriented x 3, Normal Insight, Normal Concentration Medical Decision Making ED Course and Treatment: 05/15/17 20:05 Impression: 76 year old male sent for low hemoglobin tonight. Differential Diagnosis included but are not limited to: anemia Plan: -- EKG -- CXR -- Labs, troponin, blood type and screen, blood cultures, VBG -- Urinalysis, urine culture -- Reassess and disposition Prior Visits: Notes and results from previous visits were reviewed. On 05/01/2017, pt was seen in the Emergency department for abdominal cramping/ discomfort. Pt was d/c home. Progress Notes: Reviewed EKG, NSR at 80 bpm. Incomplete RBBB. LAFB. Non-specific ST/T wave changes. 05/15/17 22:35 Reviewed radiology, CXR shows no acute processes. 05/15/17 22:[address] Hanna, who is aware and agrees with plan. Accepts pt in to his service. Pt will be admitted to [facility] for anemia and UTI. Will transfuse pt and order Maxipime. Pt in no acute distress. Discussed results and hospital admission plan with pt, who is aware and verbalizes understanding. 05/15/17 23:00 Case discussed with biomedical engineering aide certifed refrigeration operator, who is aware and agrees with plan. - Lab Interpretations Microbiology Results: Microbiology Results 05/15/17 21:15 Blood Blood Culture - Preliminary NO GROWTH AFTER 3 DAYS 05/15/17 20:45 Blood Blood Culture - Preliminary NO GROWTH AFTER 3 DAYS 05/15/17 20:45 Urine,Clean Catch Urine Culture - Final Klebsiella Pneumoniae Ssp Pneu Lab Results: 05/15/17 20:45 05/15/17 20:45 Lab Results 05/15/17 21:30: Blood Type B NEGATIVE, Antibody Screen Negative, Crossmatch See Detail, BBK History Checked Patient has bt 05/15/17 20:45: pO2 59 H, VBG pH 7.42, VBG pCO2 43.0, VBG HCO3 27.9, VBG Total CO2 29.2 H, VBG O2 Sat (Calc) 93.2 H, VBG Base Excess 2.9 H, VBG Potassium 5.4 H , Sodium 139.0, Chloride 113.0 H, Glucose 216 H, Lactate 1.1, FiO2 21.0, Venous Blood Potassium 5.4 H 05/15/17 20:45: Urine Color Yellow, Urine Appearance Sl cloudy, Urine pH 6.0, Ur Specific [place] 1.020, Urine Protein Trace H, Urine Glucose (UA) Negative, Urine Ketones Negative, Urine Blood Moderate H, Urine Nitrate Positive H, Urine Bilirubin Negative, Urine Urobilinogen 0.2, Ur Leukocyte Esterase Moderate H, Urine RBC 2 - 5, Urine WBC 15 - 20, Ur Epithelial Cells 0 - 2, Urine Bacteria Many 05/15/17 20:45: Sodium 139, Chloride 109 H, Potassium 5.3 H, Carbon Dioxide 26, Anion Gap 9 L, BUN 33 H, Creatinine 1.3, Est GFR ( Amer) > 60, Est GFR ( Non-Af Amer) 54, Random Glucose 205 H, Calcium 8.1 L, Phosphorus 3.4, Magnesium 2.0, Total Bilirubin 0.3, AST 60 H D, ALT 71 H, Alkaline Phosphatase 204 H, Troponin I < 0.01, Total Protein 6.9, Albumin 2.9 L, Globulin 4.0, Albumin/ Globulin Ratio 0.7 L 05/15/17 20:45: PT 14.0 H, INR 1.28 H, APTT 33.0 05/15/17 20:45: WBC 8.0 D, RBC 3.12 L, Hgb 8.9 L, Hct 27.6 L, MCV 88.5, MCH 28.5, MCHC 32.2, RDW 17.2 H, Plt Count 310, MPV 10.3, Gran % 80.2 H, Lymph % ( Auto) 12.4 L, [place] % (Auto) 6.5 H, Eos % (Auto) 0.7 L, Baso % (Auto) 0.2, Gran # 6.42, Lymph # 1.0 L, [place] # 0.5, Eos # 0.1, Baso # 0.02 I have reviewed the lab results: Yes - RAD Interpretation Radiology Orders: 05/15/17 20:06 CHEST PORTABLE [RAD] Stat - EKG Interpretation Interpreted by ED Physician: Yes Type: 12 lead EKG - Medication Orders Current Medication Orders: Acetaminophen (Tylenol 325mg Tab) 650 mg PO Q6H PRN PRN Reason: Fever >100.4 F Aspirin (Ecotrin) 81 mg PO DAILY [facility] Last Admin: 05/19/17 10:51 Dose: 81 mg Betamethasone/Clotrimazole (Lotrisone) 0 ml TOP BID [facility] Last Admin: 05/19/17 18:34 Dose: Not Given Non-Admin Reason: Patient Refused Clonidine HCl (Catapres) 0.1 mg PO Q6H PRN PRN Reason: .hypertension Last Admin: 05/16/17 10:41 Dose: 0.1 mg MAR Pulse and Blood Pressure Document 05/16/17 10:41 VS (Rec: 05/16/17 10:43 VS [id number]) Pulse Pulse Rate (60-90) 72 Blood Pressure Blood Pressure (100/60-150/90) 174/101 Collagenase (Santyl) 0 gm TOP DAILY [facility] Last Admin: 05/19/17 10:56 Dose: 1 applic Docusate Sodium (Colace) 100 mg PO TID [facility] Last Admin: 05/19/17 18:56 Dose: Not Given Non-Admin Reason: Patient Refused Donepezil HCl (Aricept) 10 mg PO HS [facility] Last Admin: 05/18/17 21:48 Dose: 10 mg Doxycycline Hyclate (Doryx) 100 mg PO Q12 [facility] PRN Reason: Protocol Stop: 05/25/17 10:19 Last Admin: 05/19/17 10:51 Dose: 100 mg Enoxaparin Sodium (Lovenox) 40 mg SC DAILY [facility] PRN Reason: Protocol Last Admin: 05/19/17 10:57 Dose: 40 mg Subcutaneous Administrations Document 05/19/17 10:57 (Rec: 05/19/17 10:57 [id number]) Injection Site MAR Injection Site Left Abdomen Charges for Administration # of Subcutaneous Administrations 1 Ergocalciferol (Drisdol 50,000 Intl Units Cap) 1 cap PO Q7D [facility] Famotidine (Pepcid) 20 mg PO DAILY [facility] Last Admin: 05/19/17 10:58 Dose: 20 mg Folic Acid (Folic Acid) 1 mg PO DAILY [facility] Last Admin: 05/19/17 10:52 Dose: 1 mg Furosemide (Lasix) 40 mg IVP Q12 [facility] Last Admin: 05/19/17 10:52 Dose: 40 mg MAR Blood Pressure Document 05/19/17 10:52 (Rec: 05/19/17 10:55 [id number]) Blood Pressure Blood Pressure (100/60-150/90) 150/80 IVP Administration Document 05/19/17 10:52 (Rec: 05/19/17 10:55 [id number]) Charges for Administration # of IVP Administrations 1 Meropenem 500 mg/ Sodium (Chloride) 100 mls @ 100 mls/hr IVPB Q8 [facility] PRN Reason: Protocol Stop: 05/25/17 14:01 Last Admin: 05/19/17 13:42 Dose: 100 mls/hr eMAR Start Stop Document 05/19/17 13:42 (Rec: 05/19/17 13:43 [id number]) Intravenous Solution Start Date 05/19/17 Start Time 13:42 End Date 05/19/17 End time 14:42 Total Infusion Time 60 Insulin Human Lispro (Humalog Low) 0 units SC ACHS [facility] PRN Reason: Protocol Last Admin: 05/19/17 18:33 Dose: 2 units Subcutaneous Administrations Document 05/19/17 18:33 (Rec: 05/19/17 18:33 [id number]) Charges for Administration # of Subcutaneous Administrations 1 Metoprolol Tartrate (Lopressor) 50 mg PO BID [facility] Last Admin: 05/19/17 18:34 Dose: 50 mg Polyethylene Glycol (Miralax) 17 gm PO BID [facility] Last Admin: 05/19/17 18:35 Dose: 17 gm Risperidone (Risperdal Tab) 1 mg PO DAILY [facility] PRN Reason: Protocol Last Admin: 05/19/17 10:58 Dose: 1 mg Behavioural Document 05/19/17 10:58 JW (Rec: 05/19/17 10:58 JW [id number]) Maintenance Maintenance Dose Yes Nonmedicinal Nonmedicinal Interventions See nurse's notes Behavior Behavior for Medication: Anxiety Re-Assess: Reassess Psych Meds Document 05/19/17 11:58 JW (Rec: 05/19/17 14:43 [id number]) Reassess Psych Med Effective Tamsulosin HCl (Flomax) 0.4 mg PO DAILY [facility] Last Admin: 05/19/17 10:51 Dose: 0.4 mg Discontinued Medications Calcium Carbonate (Caltrate) 600 mg PO DAILY [facility] Last Admin: 05/17/17 10:12 Dose: 600 mg Furosemide (Lasix) 40 mg IVP STAT STA Stop: 05/15/17 23:39 Last Admin: 05/16/17 04:42 Dose: 40 mg MAR Blood Pressure Document 05/16/17 04:42 [facility] (Rec: 05/16/17 04:42 [facility] [id number]) Blood Pressure Blood Pressure (100/60-150/90) 160/90 IVP Administration Document 05/16/17 04:42 [facility] (Rec: 05/16/17 04:42 [facility] [id number]) Charges for Administration # of IVP Administrations 1 Furosemide (Lasix) 40 mg IVP ONCE ONE Stop: 05/16/17 17:01 Last Admin: 05/16/17 17:51 Dose: 40 mg MAR Blood Pressure Document 05/16/17 17:51 VS (Rec: 05/16/17 17:51 VS [id number]) Blood Pressure Blood Pressure (100/60-150/90) 152/80 IVP Administration Document 05/16/17 17:51 VS (Rec: 05/16/17 17:51 VS [id number]) Charges for Administration # of IVP Administrations 1 Furosemide (Lasix) 40 mg IVP DAILY [facility] Last Admin: 05/17/17 10:14 Dose: 40 mg MAR Blood Pressure Document 05/17/17 10:14 VS (Rec: 05/17/17 10:14 VS [id number]) Blood Pressure Blood Pressure (100/60-150/90) 160/90 IVP Administration Document 05/17/17 10:14 VS (Rec: 05/17/17 10:14 VS [id number]) Charges for Administration # of IVP Administrations 1 Cefepime HCl (Maxipime 1gm) 1 gm in 100 mls @ 100 mls/hr IVPB STAT STA PRN Reason: Protocol Stop: 05/16/17 00:04 Last Admin: 05/16/17 04:43 Dose: 100 mls/hr eMAR Start Stop Document 05/16/17 04:43 [facility] (Rec: 05/16/17 04:43 [facility] [id number]) Intravenous Solution Start Date 05/16/17 Start Time 04:43 End Date 05/16/17 End time 05:43 Total Infusion Time 60 Vancomycin HCl (Vancomycin 1gm) 1 gm in 250 mls @ 167 mls/hr IVPB ONCE ONE PRN Reason: Protocol Stop: 05/16/17 01:10 Last Admin: 05/16/17 04:52 Dose: 167 mls/hr eMAR Start Stop Document 05/16/17 04:52 [facility] (Rec: 05/16/17 04:52 [facility] [id number]) Intravenous Solution Start Date 05/16/17 Start Time 04:52 End Date 05/16/17 End time 06:22 Total Infusion Time 90 Metoprolol Tartrate (Lopressor) 25 mg PO BID [facility] Last Admin: 05/16/17 10:43 Dose: 25 mg MAR Pulse and Blood Pressure Document 05/16/17 10:43 VS (Rec: 05/16/17 10:44 VS [id number]) Pulse Pulse Rate (60-90) 72 Blood Pressure Blood Pressure (100/60-150/90) 174/101 Sodium Polystyrene Sulfonate (Kayexalate Susp) 15 gm PO ONCE ONE Stop: 05/15/17 23:42 Last Admin: 05/16/17 04:39 Dose: 15 gm - Scribe Statement The provider has reviewed the documentation as recorded by the Flipibhernando Nieto All medical record entries made by the Flipibhernando were at my direction and personally dictated by me. I have reviewed the chart and agree that the record accurately reflects my personal performance of the history, physical exam, medical decision making, and the department course for this patient. I have also personally directed, reviewed, and agree with the discharge instructions and disposition. Disposition/Present on Arrival - Present on Arrival Any Indicators Present on Arrival: No History of DVT/PE: No History of Uncontrolled Diabetes: No Urinary Catheter: No History of Decub. Ulcer: No History Surgical Site Infection Following: None - Disposition Have Diagnosis and Disposition been Completed?: Yes Diagnosis: UTI (urinary tract infection), Anemia Disposition: HOSPITALIZED Disposition Time: 23:00 Condition: GOOD
[2017-05-15] MEDS ORDERED: Cefepime 1gm in NS 100ml 1 GM/100 ML BAG IVPB STA (23:05)
[2017-05-15] MEDS ORDERED: Vancomycin 1gm in NS 250ml 1 GM/250 ML BAG IVPB ONE (23:41)
[2017-05-15] MEDS ORDERED: Sod Polystyrene Sulf 15 gm/60 ml Susp PO ONE (23:41)
[2017-05-15] MEDS ORDERED: Sodium Chloride 0.9% 1,000 ML IV SCH (23:45)
--- NOTE | 2017-05-16 00:05 | CP.PCM.HP ---
<JENNIFER VASQUEZ - Last Filed: 05/15/17 23:59> History of Present Illness - History of Present Illness History of Present Illness: CC: Abnormal labs at [facility] Pt is a 76 yo male with PMH of diabetes and HTN presents to [facility] [place] [place] nursing due to abnormal lab work. Pt was found to have a low hemoglobin at [facility] and was febrile. Pt has indwelling cm catheter. Pt at baseline tends to be confused with occasional agitation. At time of interview, pt was answering questions appropriately. Pt denied CP, SOB, nausea, vomiting, diarrhea, constipation, dysuria, polyuria, LEWIS, fatigue, or dizziness. PMH: Diabetes, HTN PSH: none Meds: Insulin (non-compliant) Allergies: NKDA SHx: denied tobacco/etoh/drug use, retired, used to park cars FHx: stated mom has heart dz (daughter denied her grandmother has any heart dz) Present on Admission - Present on Admission Any Indicators Present on Admission: No Review of Systems - Review of Systems Review of Systems: 12 point ROS reviewed and is negative other than what is stated in HPI. Past Patient History - Infectious Disease Hx of Infectious Diseases: None - Tetanus Immunizations Tetanus Immunization: Unknown - Past Social History Smoking Status: Never Smoked - CARDIAC Hx Cardiac Disorders: Yes Hx Hypertension: Yes Hx Peripheral Edema: Yes - PULMONARY Hx Respiratory Disorders: No - NEUROLOGICAL Hx Neurological Disorder: No - HEENT Hx HEENT Problems: No - RENAL Hx Chronic Kidney Disease: No - ENDOCRINE/METABOLIC Hx Diabetes Mellitus Type 2: Yes - HEMATOLOGICAL/ONCOLOGICAL Hx Blood Transfusions: No - INTEGUMENTARY Hx Dermatological Problems: No - MUSCULOSKELETAL/RHEUMATOLOGICAL Hx Musculoskeletal Disorders: Yes (uses walker) Hx Falls: Yes - GASTROINTESTINAL Hx Gastrointestinal Disorders: No - GENITOURINARY/GYNECOLOGICAL Hx Genitourinary Disorders: No - PSYCHIATRIC Hx Psychophysiologic Disorder: (etoh) Hx Substance Use: No - SURGICAL HISTORY Hx Surgeries: No - ANESTHESIA Hx Anesthesia: Yes Meds Allergies/Adverse Reactions: Allergies Allergy/AdvReac Type Severity Reaction Status Date / Time No Known Allergies Allergy Verified 05/15/17 19:57 Physical Exam - Constitutional Appears: No Acute Distress, Confused - Head Exam Head Exam: ATRAUMATIC, NORMOCEPHALIC - Eye Exam Eye Exam: EOMI, PERRL. absent: Scleral icterus Pupil Exam: NORMAL ACCOMODATION Additional comments: Strabismus - ENT Exam ENT Exam: Mucous Membranes Moist Additional comments: Poor dentation - Neck Exam Neck exam: Positive for: Full Rom. Negative for: Lymphadenopathy, Tenderness, Thyromegaly - Respiratory Exam Respiratory Exam: Clear to Auscultation Bilateral. absent: Rales, Rhonchi, Wheezes - Cardiovascular Exam Cardiovascular Exam: RRR, +S1, +S2. absent: Diastolic murmur, Gallop, Rubs, Systolic Murmur - GI/Abdominal Exam GI & Abdominal Exam: Soft. absent: Distended, Guarding, Organomegaly, Rebound, Tenderness - Extremities Exam Additional comments: B/L UE and LE edema multiple b/l LE lesions - Neurological Exam Neurological exam: Alert, Oriented x3 - Psychiatric Exam Psychiatric exam: Normal Affect, Normal Mood - Skin Skin Exam: Dry, Intact, Normal Color, Warm Results - Vital Signs Recent Vital Signs: Last Vital Signs Temp 98.9 F 05/15/17 20:28 Pulse 76 05/15/17 23:30 Resp 16 05/15/17 23:30 BP 161/82 H 05/15/17 23:30 Pulse Ox 100 05/15/17 23:30 - Labs Result Diagrams: 05/15/17 20:45 05/15/17 20:45 Assessment & Plan - Assessment and Plan (Free Text) Assessment: 76 yo male with PMH of DM and HTN will be admitted for evaluation and treatment for anemia and UTI. Plan: 1. Anemia - Hgb 8.9 - Transfused one unit pRBC in ED - Cont to monitor, transfused as needed 2. UTI - UA positive for nitrates and leuk esterase - WBC normal, febrile - ID Consulted - Blood and urine cultures ordered - Cefepime 1 gm q24 due to creatinine clearance - Vanco one time dose 3. Hyperkalemia - K 5.3 - Lasix one time dose prior to transfusion - Kayexelate 15 gm PO once - Cont to monitor 4. DM - ISS - Accuchecks ACHS 5. HTN - Lopressor 25 mg PO BID - Clonidine 0.1 mg PO q6h prn 6. Dehydration - Elevated BUN:Cr ratio - NS 60 ml/hr - PO fluids 7. H/o Dementia - Cont Aricept, Risperidone GI/DVT PPx - Pepcid - Lovenox - SCDs/TEDs Pt discussed in detail with Dr. Hanna. Cj Vasquez, PGY1 <Eliezer Hanna U - Last Filed: 05/16/17 13:54> Physical Exam - Additional Findings Additional findings: REVIEW OF SYSTEMS: Thirteen-system review was done, pertinent positive, negative dictated above. CODE STATUS: Full code. LIVING WILL, ADVANCE DIRECTIVE: None. HEIGHT: 5 feet 7 inches. BODY MASS INDEX: 31. ALLERGIES: NONE. SOCIAL HISTORY: Negative for smoking, negative for alcohol, negative for drug use, communicable or transmissible disease. OCCUPATIONAL HISTORY: The patient is disabled with vision impaired. FAMILY HISTORY: Not known. The patient was recently discharged on 04/04/2017. The patient was discharged from [facility] on 04/04/2017 to [facility]. DISCHARGE MEDICATIONS: Have been Flomax 0.4 mg daily, MiraLax 17 grams twice a day, Lopressor 25 mg twice a day, Humalog sliding scale coverage, folic acid 1 mg daily, Pepcid 20 mg daily, Lovenox 40 mg subcutaneously daily, Aricept 5 mg at bed time, Clonidine 0.1 mg q. 6 hours. p.r.n., vitamin D3 50,000 units daily, and aspirin 81 mg daily. The patient is discharged on aspirin 81 mg daily, Caltrate 600 mg daily, Clonidine 0.1 mg q. 6 hours. p.r.n. for systolic blood pressure greater than or equal to 170 or diastolic greater than 100, Aricept 5 mg daily, Lovenox 40 mg subcutaneously daily, vitamin D 50,000 weekly, Pepcid 20 mg daily, folic acid 1 mg daily, NPH insulin 18 units for breakfast and 18 units for dinner, Lopressor 25 mg twice a day, MiraLax 17 g twice a day, Risperdal 0.5 mg at 8:00 a.m., and 4:00 p.m., Risperdal 1 mg at bed time, Flomax 0.4 mg daily, Humalog medium dose sliding scale coverage a.c. and at bed time. PAST MEDICAL AND SURGICAL HISTORY: History of fall, history of syncope versus near syncope, history of vision impairment, history of right femoral subcapital fracture, history of right hip hemiarthroplasty, and right femoral right hip hemiarthroplasty, history of gait dysfunction, history of deconditioning, history of obesity, history of insulin requiring diabetes mellitus, history of psychosis, history of behavioral disorder, history of dementia, history of anemia, history of thrombocytopenia, history of acute kidney injury with underlying chronic kidney disease stage III, history of uncontrolled insulin requiring diabetes mellitus with hemoglobin A1c of greater than 11, history of hypertension, history of pulmonary hypertension with moderate tricuspid regurgitation and elevated right ventricular systolic pressure, history of left leg cellulitis and superficial skin ulceration, history of sacral decubitus ulceration stage I versus non-stageable, history of obesity, history of hypovitaminosis D, history of elevated prostatic specific antigen of greater than 8 and greater than 12, history of questionable schizophrenia versus schizo-affective disorder, history of previous multiple psychiatric hospitalizations, history of hypertension, history of right hip femoral neck fracture, history of uncontrolled hypertension, history of toxic metabolic encephalopathy with confusional state with agitation or restlessness, history of pancytopenia with leukopenia, anemia, and thrombocytopenia, history of granulocytosis and lymphopenia, history of questionable iron deficiency, history of protein malnutrition, history of questionable urinary tract infection, proteinuria, glycosuria, microscopic hematuria, pyuria and bacteriuria, history of microalbuminuria, history of left leg coagulase-negative Staphylococcus left leg cellulitis and skin structure infection, history of degenerative joint disease of the hips, history of bilateral renal cysts, 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, history of left ventricular ejection fraction of 59%, history of moderate pulmonary hypertension with moderate tricuspid regurgitation and right ventricle systolic pressure of 55 mmHg, history of concentric left ventricular hypertrophy, history of mildly thickened mitral valve, and mild aortic regurgitation, and mildly thickened aortic valve, history of small hiatal hernia, history of bibasilar atelectasis, history of shotty mediastinal adenopathy, history of osteopenia, history of degenerative joint disease of the bones, history of gynecomastia, history of colonic fecal stasis and retention, history of hemorrhagic cystitis with hematuria, and history of right hip surgery. The patient's past medical history significant for prostate hypertrophy versus prostate hyperplasia, history of psychosis, history of dementia, history of hematuria, history of questionable right upper extremity weakness, history of right shoulder degenerative joint disease and arthritis, history of right hip bipolar hemiarthroplasty, history of gait dysfunction, history of acute kidney injury, history of underlying chronic kidney disease stage III, history of thrombocytopenia (resolved), history of questionable TIA, history of obesity, history of left leg diabetic ulceration with infection and skin structure infection, history of questionable urinary retention, history of bilateral renal cyst, history of prostatic hypertrophy with history of hemorrhagic cystitis, history of urinary retention, history of constipation, history of fecal stasis, history of bibasilar scarring versus atelectasis, history of small hiatal hernia, history of osteopenia, history of gynecomastia, history of prostatomegaly, history of leukopenia and granulocytosis, history of bibasilar atelectasis, history of questionable gastroesophageal junctional clips, etiology undetermined with shotty mediastinal lymphadenopathy, history of prominent common bile duct with partially distended gallbladder, history of pancreatic atrophy, history of bilateral adrenal nodules, history of bilateral renal cyst, history of fecal retention, history of questionable cystitis with bladder wall thickening and partially distended urinary bladder of perivesical inflammation, history of prostatomegaly, history of right shoulder glenohumeral joint osteoarthritis, history of left lower extremity superficial ulceration, history of insulin-requiring diabetes mellitus, history of hypocalcemia, history of dementia and history of gastroesophageal reflux. The patient's past medical history is significant for recurrent fall, history of disabled, history of dyslipidemia, history of poor compliance, history of leukopenia and granulocytosis. Results - Vital Signs Recent Vital Signs: Last Vital Signs Temp 97.6 F 05/16/17 10:13 Pulse 72 05/16/17 10:43 Resp 20 05/16/17 10:13 BP 174/101 H 05/16/17 10:43 Pulse Ox 94 L 05/16/17 10:13 - Labs Result Diagrams: 05/16/17 08:30 05/16/17 08:30 Labs: Laboratory Results - last 24 hr 05/16/17 05/16/17 05/16/17 08:29 08:30 08:30 WBC 8.0 RBC 3.29 L Hgb 9.3 L Hct 28.9 L MCV 87.8 MCH 28.3 MCHC 32.2 RDW 16.6 H Plt Count 343 MPV 9.5 Sodium 144 Potassium 4.5 Chloride 111 H Carbon Dioxide 27 Anion Gap 11 BUN 31 H Creatinine 1.2 Est GFR ( Amer) > 60 Est GFR (Non-Af Amer) 59 POC Glucose (mg/dL) 89 Random Glucose 93 Calcium 8.3 L Phosphorus 3.9 Magnesium 2.0 Total Bilirubin 0.4 AST 72 H ALT 82 H Alkaline Phosphatase 194 H Total Protein 6.9 Albumin 2.9 L Globulin 4.0 Albumin/Globulin Ratio 0.7 L
[2017-05-16] MEDS: Insulin Lispro (humaLOG) LOW Coverage SC SCH ×4 (08:40→23:30)
[2017-05-16 08:45] LABS: HEMATOCRIT 28.9 % (42.0-52.0); MEAN CELL VOLUME 87.8 fl (80.0-105.0); MEAN CORPUSCULAR HEMOGLOBIN 28.3 pg (25.0-35.0); MEAN CORPUSCULAR HGB CONC 32.2 g/dl (31.0-37.0); MEAN PLATELET VOLUME 9.5 fl (7.0-11.0); RED CELL DISTRIBUTION WIDTH 16.6 % (11.5-14.5)
[2017-05-16 08:49] LABS: ALB/GLOB RATIO 0.7 (1.1-1.8); ALKALINE PHOSPHATASE 194 U/L (38-126); ALT/SGPT 82 U/L (7-56); AST/SGOT 72 U/L (17-59); BILIRUBIN,TOTAL 0.4 mg/dL (0.2-1.3); BLOOD UREA NITROGEN 31 mg/dL (7-21); CALCIUM 8.3 mg/dL (8.4-10.5); CARBON DIOXIDE 27 mmol/L (21-33); CHLORIDE 111 mmol/L (98-107); GFR AFRICAN-AMERICAN > 60; GLUCOSE,RANDOM 93 mg/dL (70-110); PHOSPHOROUS 3.9 mg/dL (2.5-4.5); POTASSIUM 4.5 mmol/L (3.6-5.0); SODIUM 144 mmol/L (132-148); TOTAL PROTEIN 6.9 g/dL (5.8-8.3)
--- NOTE | 2017-05-16 10:10 | RAD ---
HISTORY: Sepsis Patient COMPARISON: 04/02/2017 FINDINGS: LUNGS: Patchy bibasilar infiltrates consistent with pneumonia PLEURA: No significant pleural effusion identified, no pneumothorax apparent. CARDIOVASCULAR: Normal. OSSEOUS STRUCTURES: No significant abnormalities. VISUALIZED UPPER ABDOMEN: Normal. OTHER FINDINGS: None. IMPRESSION: Patchy bibasilar infiltrates consistent with pneumonia
[2017-05-16] MEDS: Prostat 15 g packet PO SCH ×2 (10:44→18:31)
[2017-05-16] MEDS: POLYETHYLENE GLYCOL 3350 17 GM/Dose PACKET PO SCH ×2 (10:44→17:51)
[2017-05-16] MEDS: Enoxaparin 40 mg Syringe SC SCH (10:44)
[2017-05-16] MEDS: Meropenem 500 MG in Sodium Chloride 0.9% 100 ML IVPB SCH ×2 (13:12→22:12)
--- NOTE | 2017-05-16 14:38 | CARD ---
APPROVED REPORT EKG Measurement Heart [id number] <Conclusion> Normal sinus rhythm Pulmonary disease pattern Incomplete right bundle branch block Left anterior fascicular block Abnormal ECG
--- NOTE | 2017-05-16 20:24 | CON ---
DATE: 05/16/2017 LOCATION: The patient is seen earlier in [facility], bed 1. CHIEF COMPLAINT: Weakness times several days. HISTORY OF PRESENT ILLNESS: This is a 76-year-old male with past medical history significant for obesity, hypertension and diabetes, who is admitted through the emergency room with diagnosis of urinary tract infection. The patient has a chronic Mckeon catheter. The patient transfer from long-term facility. [facility] [place] [facility] rather documented that the patient had a low hemoglobin. No chest pain, no fevers or chills. The patient does have a Mckeon catheter. No abdominal pain, diarrhea or constipation. No bright red blood per rectum. No melena. PAST MEDICAL HISTORY: Significant for obesity, hypertension, diabetes and coronary artery disease. PAST SURGICAL HISTORY: Noncontributory. ALLERGIES: THE PATIENT HAS NO KNOWN ALLERGIES. MEDICATIONS AT HOME: Include clonidine, Flomax, MiraLax, metoprolol, insulin, folic acid, famotidine, Lovenox, calcium, and aspirin. PHYSICAL EXAMINATION: GENERAL: The patient is in bed, in no acute distress. VITAL SIGNS: With a temperature was 100.6 in the emergency room yesterday is down to 97 with a pulse of 78. The patient is on propranolol. Blood pressure is 160/90 and respiratory rate of 23 yesterday. HEENT: Unremarkable. NECK: Supple. LUNGS: Decreased breath sounds. HEART: Normal S1, S2. ABDOMEN: Soft, nontender. LABORATORY EXAMINATION: Reveals a white count of 8.0, hemoglobin of 8, platelets of 310 and 80% granulocytosis and blood gases are noted. The chemistries reveals the patient's creatinine of 1.3 with a glucose of 205. The patient does have a high alk phos of 204 with a mild elevation of LFTs and chloride is 109 with a serum bicarb of 26 with anion gap of 9. Urinalysis is 15-20 wbcs, many bacteria. Review microbiology from earlier this month grew Proteus in the blood and Proteus in the urine. Proteus in the urine was pansensitive and Proteus in the blood was pansensitive. History and physical examination by Dr. Ventura is reviewed. The patient also had a chest x-ray, patchy bibasilar infiltrates consistent with a pneumonia. ASSESSMENT AMD PLAN: A 76-year-old male with obesity with a BMI of 36 with diabetes mellitus, hypertension, history of Proteus bacteremia, chronic Mckeon catheter, high cholesterol, admitted with fever and dyspnea with positive urinalysis and positive chest x-ray. Sepsis with urine as the source and the patient also with bilateral healthcare-associated possible gram-positive cocci, possible gram-negative tejal pneumonia. We will treat the patient with max meropenem and doxycycline. Discontinued the Maxipime and order blood cultures, urine cultures and procalcitonin. We will also order an abdominal ultrasound for evaluation of the increase LFTs and alk phos. We will make further recommendations, pending initial results and workup results. We will follow closely with you. Jose Jennings MD
--- NOTE | 2017-05-16 20:47 | CT ---
EXAM: CT Chest Without Intravenous Contrast EXAM DATE/TIME: 05/16/2017 5:22 PM CLINICAL HISTORY: 76 years old, male; Signs and symptoms; Other: Fluid over load; Additional info: Fluid over load. Patient unable to cooperate/unable to keep his arms up/best obtainable scan TECHNIQUE: Axial computed tomography images of the chest without intravenous contrast. All CT scans at this facility use one or more dose reduction techniques, viz.: automated exposure control; ma/kV adjustment per patient size (including targeted exams where dose is matched to indication; i.e. head); or iterative reconstruction technique. MIP reconstructed images were created and reviewed. Coronal and sagittal reformatted images were created and reviewed. COMPARISON: CT - CHEST,ABDOMEN,PELVIS W/O CONT 2017-03-30 23:34 FINDINGS: Artifacts: Motion artifact degrades image quality.Streak artifact degrades image quality. Lungs and pleural spaces: Trachea and main bronchi are patent. There are moderately large bilateral pleural effusions. There is partial atelectasis of both lower lobes. There is compressive atelectasis in the upper lobes. There are asymmetric groundglass opacities in the aerated lung zones. There are pleural calcifications at the left base Heart and vasculature: The heart is enlarged. There are coronary artery calcifications. There is a very small pericardial effusion. Aorta is normal in caliber. There are calcifications in the aortic wall. Main pulmonary artery is dilated, 3.5 cm in diameter. Mediastinum: The esophagus is partially distended with air. There are multiple mildly enlarged mediastinal nodes.Laura are not optimally evaluated without contrast material. Thyroid: Thyroid is not optimally demonstrated. Bones/joints: Bony structures are osteopenic. There are degenerative changes. Soft tissues: There is body wall edema greatest on the left. There is gynecomastia on the left. Vasculature: See above. Lymph nodes: See above. Upper abdomen: There are no acute abnormalities in the visualized portion of the abdomen. IMPRESSION: Interval development of moderately large bilateral pleural effusions with atelectasis greatest at the lung bases; patchy airspace disease in aerated lung zones; cardiomegaly with small pericardial effusion and atherosclerotic disease; anasarca; slightly limited by patient motion Additional findings as described above.
[2017-05-17] MEDS ORDERED: Cefepime 1gm in NS 100ml 1 GM/100 ML BAG IVPB SCH (05:00)
[2017-05-17] MEDS: Meropenem 500 MG in Sodium Chloride 0.9% 100 ML IVPB SCH ×3 (05:18→21:38)
--- NOTE | 2017-05-17 05:56 | PN ---
DATE: 05/16/2017 SUBJECTIVE: The patient is seen lying in the bed in room 375 bed 1. The patient is alert, awake, responsive. The patient is being fed by the PCP. The patient does not offer any specific complaint. The patient's overnight nurse's notes were reviewed. The patient completed 1 unit of PRBC ordered from the ER. PHYSICAL EXAMINATION: VITAL SIGNS: T-max was 100.6. Blood pressure 160/90 and 174/101, O2 sat 94%. The patient is lying in the bed. HEAD: Normocephalic, atraumatic. HEENT: Shows decreased vision, pinkish pale conjunctivae. Anicteric sclerae. No oropharyngeal lesion. NECK: No neck rigidity. CHEST: Kyphosis. LUNGS: Shows decreased breath sound at the bases and positive questionable crackles, crepitations bilaterally. Positive rhonchi upper lung quiros. CARDIOVASCULAR: S1, S2. Questionable soft systolic murmur left sternal border, right second intercostal space, left sternal border, right second intercostal space. ABDOMEN: Distended, protuberant. Positive bowel sounds noted. GENITALIA: Male. Positive Mckeon catheter. Positive scrotal swelling and edema noted. EXTREMITIES: Shows positive dense edema and swelling noted. MUSCULOSKELETAL: Examination shows an elevated body mass index. GAIT: Not tested. NEUROLOGIC: The patient is alert, awake, responsive, follows simple commands. DIAGNOSTICS: The patient today's hemoglobin and hematocrit 9.3 and 29, after 1 unit of PRBC transfusion. Potassium was low. Urinalysis shows positive protein, positive blood, positive nitrites, positive leukocyte esterase, positive bacteria. The patient's chest x-ray was noted which shows bibasilar pneumonia, atelectasis with questionable effusion. IMPRESSION: 1. Questionable and possible sepsis with fever and bibasilar pneumonia, atelectasis and possible pleural effusion. 2. Healthcare-associated bibasilar pneumonia. 3. Uncontrolled hypertension. 4. Questionable anasarca. 5. Scrotal and penile edema. 6. Bilateral lower extremity venous stasis. 7. Transient hypoxemia. 8. Anemia. 9. Status post packed red blood cell transfusion x1. 10. Hypokalemia. 11. Prerenal kidney injury. 12. Transaminitis. 13. Questionable urinary tract infection with proteinuria, pyuria, bacteriuria, hematuria. 14. Bifascicular block with right bundle-branch block, left anterior hemiblock. 15. Dementia. 16. Vision impairment versus questionable diabetic retinopathy. 17. Insulin-requiring diabetes mellitus. 18. Hypovitaminosis D. 19. Gait dysfunction. 20. Obesity with elevated body mass index of 36.5. 21. History of dementia. 22. Prostatic hypertrophy with history of elevated prostate-specific antigen. 23. History of urinary retention and hydronephrosis. 24. History of constipation. PLAN: At this time, the patient is to be continued on following medications. The patient Aricept is increased to 10 mg at bedtime. The patient is on calcium carbonate 600 mg daily for hypocalcemia, clonidine 0.1 mg q.6 hours p.r.n., the patient is on doxycycline 100 mg p.o. q.12 hours by infectious disease. The patient is on Drisdol 50,000 units weekly. The patient is on aspirin, Ecotrin 81 mg daily, Flomax 0.4 mg daily, folic acid 1 mg daily, Humalog low-dose sliding scale coverage. Lopressor 50 mg b.i.d., dose increased from 25 b.i.d. to 50 b.i.d. for hypertension control. The patient is on Lovenox 40 mg subcu daily. The patient is on meropenem 500 mg IV q.8 hours, MiraLax 17 g twice a day, Pepcid 20 mg daily, Risperdal 1 mg daily. The patient's IV fluid has been discontinued. The patient is on Tylenol 650 q.6 p.r.n. The patient at present will be continued on above therapeutic intervention. The patient has been requested one more unit of PRBC transfusion today. The patient's IV fluid has been discontinued. The patient will be given Lasix 40 mg IV push prior to another unit of PRBC today. The patient will be started on Lasix 40 IV daily from tomorrow. Consultation with Urology, has been ordered. The patient has been explained about the details of his medical condition. The patient's ultrasound of the abdomen was ordered by Infectious Disease. The results are pending, which will be reviewed. The patient has been ordered out of bed to chair, physical therapy, occupational therapy, ambulation therapy, gait training. The patient's IV fluid discontinued. The patient has been ordered a stat PSA. The patient may require venous Doppler of the lower extremity if the swelling does not resolve. The patient's repeat chest x-ray and CT scan of the chest will be ordered for evaluation of pneumonia. The patient will be ordered a venous Doppler of the lower extremities. Overall, the patient's prognosis is guarded to poor because of underlying multiple comorbidities and coexisting condition and severe decompensation which has been explained to the patient's next of kin during the last hospitalization in March. I have advised the patient's family on previous hospitalization that the patient will benefit from 24-hour care and supervision, whether it is at home or alternate options. Eliezer Hanna MD
[2017-05-17 06:59] LABS: HEMATOCRIT 31.5 % (42.0-52.0); MEAN CELL VOLUME 86.5 fl (80.0-105.0); MEAN CORPUSCULAR HEMOGLOBIN 28.6 pg (25.0-35.0); MEAN PLATELET VOLUME 10.1 fl (7.0-11.0); RED CELL DISTRIBUTION WIDTH 16.2 % (11.5-14.5); WHITE BLOOD COUNT 7.3 10^3/ul (4.5-11.0)
[2017-05-17 07:14] LABS: POTASSIUM 4.2 mmol/L (3.6-5.0)
[2017-05-17 07:19] LABS: BILIRUBIN,TOTAL 0.5 mg/dL (0.2-1.3)
[2017-05-17 07:43] LABS: ALB/GLOB RATIO 0.7 (1.1-1.8); ALKALINE PHOSPHATASE 186 U/L (38-126); ALT/SGPT 72 U/L (7-56); AST/SGOT 56 U/L (17-59); BLOOD UREA NITROGEN 33 mg/dL (7-21); CALCIUM 8.4 mg/dL (8.4-10.5); CARBON DIOXIDE 27 mmol/L (21-33); CHLORIDE 108 mmol/L (98-107); GFR AFRICAN-AMERICAN > 60; GLUCOSE,RANDOM 139 mg/dL (70-110); SODIUM 142 mmol/L (132-148); TOTAL PROTEIN 6.7 g/dL (5.8-8.3)
[2017-05-17] MEDS: Insulin Lispro (humaLOG) LOW Coverage SC SCH ×4 (08:12→22:49)
[2017-05-17] MEDS: Enoxaparin 40 mg Syringe SC SCH (10:13)
[2017-05-17] MEDS: Prostat 15 g packet PO SCH (10:14)
[2017-05-17] MEDS: POLYETHYLENE GLYCOL 3350 17 GM/Dose PACKET PO SCH ×2 (10:14→18:59)
--- NOTE | 2017-05-17 13:40 | PN ---
DATE: 05/17/2017 SUBJECTIVE: The patient is in bed, in no acute distress. The patient seen earlier this morning. PHYSICAL EXAMINATION: VITAL SIGNS: Temperature is 97.4, blood pressure is 160/90, respiratory rate 20, heart rate of 68. HEENT: Unremarkable. NECK: Supple. LUNGS: Have decreased breath sounds. HEART: Normal S1, S2. ABDOMEN: Soft, nontender. LABORATORY DATA: Reveals a white count of 7.3, hemoglobin of 10, platelets of 227. Chemistries reveals a BUN of 33, creatinine of 1.2. PSA is 7.9. Urinalysis is noted with wbc's of 15 to 20. Urine culture is a gram-negative tejal. The blood cultures are no growth. The patient is on p.o. doxycycline and meropenem and was given a dose of vancomycin. The patient had a CT scan of the chest, moderately large bilateral pleural effusion, atelectasis against the lung bases, patchy airspace disease. The patient had a procalcitonin of 0.24. 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 Sepsis with gram-negative tejal in the urine as a source and bilateral healthcare-associated pneumonia with a normal procalcitonin, currently on day 2 of meropenem and doxycycline, will check on the final blood cultures and identification sensitivity of gram-negative tejal in the urine. The patient also had an abdominal ultrasound, awaiting for those results. I will make further recommendations. Jose Jennings MD
--- NOTE | 2017-05-17 14:40 | US ---
HISTORY: r/o gb ds COMPARISON: None. TECHNIQUE: Sonographic evaluation of the abdomen. FINDINGS: LIVER: Measures 14.5 x 13 cm. Increased echogenicity of the liver parenchyma. No mass. No intrahepatic bile duct dilatation. GALLBLADDER: Unremarkable. No gallstones. COMMON BILE DUCT: Measures 3 mm. No stones. No dilatation. PANCREAS: Obscured by bowel gas RIGHT KIDNEY: Measures 10.28 x 4.52 x 5.58cm. Normal echogenicity. No calculus, mass, or hydronephrosis. 1 cm cyst LEFT KIDNEY: Measures 10.26 x 5.40 x 5.85cm. Normal echogenicity. No calculus, mass, or hydronephrosis. There are 2 separate cysts the 1st measuring 2.3 x 1.7 x 1.7 cm and the 2nd measuring 4.4 x 3.0 x 2.6 cm SPLEEN: Normal in size and contour. No mass. Partially obscured by bowel gas AORTA: No aneurysmal dilatation. IVC: Unremarkable. OTHER FINDINGS: None. IMPRESSION: No evidence gallbladder disease
--- NOTE | 2017-05-17 14:55 | CP.PCM.PCO ---
Physician Communication Note - Physician Communication Note Physician Communication Note: Re: Decubitus. Rx: Santyl daily. No surgery needed
--- NOTE | 2017-05-17 15:58 | CT ---
PROCEDURE: CT HEAD WITHOUT CONTRAST. HISTORY: altered mental status COMPARISON: 03/30/2017 TECHNIQUE: Axial computed tomography images were obtained through the head/brain without intravenous contrast. Radiation dose: Total exam DLP = 1705 mGy-cm. This CT exam was performed using one or more of the following dose reduction techniques: Automated exposure control, adjustment of the mA and/or kV according to patient size, and/or use of iterative reconstruction technique. FINDINGS: HEMORRHAGE: No intracranial hemorrhage. BRAIN: No mass effect or edema. No atrophy or chronic microvascular ischemic changes. VENTRICLES: Unremarkable. No hydrocephalus. CALVARIUM: Unremarkable. PARANASAL SINUSES: Unremarkable as visualized. No significant inflammatory changes. MASTOID AIR CELLS: Unremarkable as visualized. No inflammatory changes. OTHER FINDINGS: None. IMPRESSION: No acute finding
--- NOTE | 2017-05-17 16:27 | CON ---
GENITOURINARY CONSULTATION DATE: 05/17/2017 CHIEF COMPLAINT: Chronic indwelling Mckeon. HISTORY OF PRESENT ILLNESS: This is a 76-year-old male who came from [facility]. He has an indwelling Mckeon catheter chronically. They wanted it changed and were concerned because he has significant penile edema and nurses did not feel they will be able to do it. The catheter has been draining. There is no hematuria. The patient was admitted because of a drop in his hemoglobin. History is obtained from the chart since he is not a good historian. PAST MEDICAL HISTORY: Significant for hypertension and diabetes. ALLERGIES: HE HAS NO ALLERGIES. MEDICATIONS: He takes insulin. FAMILY HISTORY: Noncontributory. SOCIAL HISTORY: He does not drink, smoke, or use drugs. REVIEW OF SYSTEMS: There are no apparent symptoms referable to the head, eyes, ears, nose, and throat, cardiac, respiratory, or GI symptoms. PAST SURGICAL HISTORY: He has had no prior surgeries. PHYSICAL EXAMINATION: GENERAL: Shows him to be in bed, not really responsive. VITAL SIGNS: His temperature is afebrile. His blood pressure is 139/82, respirations 20, pulse 89. HEENT: Normocephalic. Sclerae clear. Conjunctivae non-injected. BACK: No CVA pain. ABDOMEN: No hepatosplenomegaly, rebound, or no guarding. No suprapubic fullness. GENITALIA: The penis is edematous. The foreskin is forward. Mckeon catheter is indwelling. Testicles, cord, epidermis normal. SKIN: No purpura. LABORATORY DATA: Lab work shows a hemoglobin of 10.4, white count 7300. His coags show an INR of 1.28, creatinine is 1.2 with a BUN of 33. PSA is 7.9, but he has an indwelling Mckeon and I would not do anything for him at this time. His albumin is 2.9, which may account for the edema. I discontinued the Mckeon catheter and replaced the Mckeon catheter atraumatically and anchored the tubing to the thigh without any traction and enough redundancy so that it should not cause any trauma to the penis. He will be seen again if requested. Josef Dick MD
[2017-05-17] MEDS: Collagenase 250 Units/gm Ointment(30 gm) TOP SCH (18:58)
[2017-05-17] MEDS: Clotrimazole/Betamethasone Lotion(30 ml) TOP SCH (18:59)
--- NOTE | 2017-05-17 19:42 | PN ---
DATE: 05/17/2017 SUBJECTIVE: The patient is seen lying in the bed, in room 375, bed 1. The patient is lying in the bed. According to the nurses today, the patient has been confused and disoriented. The patient's overnight nurse's notes were reviewed. Yesterday, the patient's IV fluid was stopped because of increasing leg swelling and scrotal swelling and abdominal wall swelling. OBJECTIVE: VITAL SIGNS: T-max is 97.4, heart rate 68-88, blood pressure 150/90, respirations 20, O2 sat 99%. Blood pressure 150/90, 160/90. EXTREMITIES: The patient is seen lying in the bed with the patient's nurse. The patient is alert, awake, responsive, was able to say his name, but and able to state date, year, date, month and unable to state date of , unable to state where he was born, he stated that he was born in [facility]. The patient is unable to follow commands, though patient is awake and responsive. Head examination normocephalic, atraumatic. HEENT: Examination shows pinkish pale conjunctivae. Anicteric sclerae. No oropharyngeal lesion. No neck rigidity. CHEST: Examination kyphosis. LUNGS: Examination shows positive rhonchi. Questionable decreased breath sound at the bases. Positive rhonchi bilaterally. CARDIOVASCULAR: Examination with S1, S2, regular rhythm. Questionable soft systolic murmur, right second intercostal space, left sternal border, left second intercostal space. ABDOMEN: Protuberant, obese. Positive bowel sounds. GENITALIA: Female. Positive Mckeon catheter. Positive scrotal edema. The patient's nurse also pointed out that the patient has a unstable decubitus ulceration. EXTREMITIES: Shows 1+ to 2+ tense pitting edema. MUSCULOSKELETAL: Examination shows elevated body mass index of 37. Cranial nerves II-XII limited. Gait examination could not be tested. NEUROLOGIC: The patient is alert, awake, responsive, oriented to person, disoriented to year, date, month, time, place. DIAGNOSTIC DATA: WBC 7.3, hemoglobin/hematocrit 10.4/31.5, platelet 227. Sodium 142, potassium 4.2, chloride 108, CO2 is 22, BUN 33, creatinine 1.2, glucose 159. Noninvasive venous Doppler was done yesterday which was negative for DVT. Ammonia level 9. The patient's urine cultures were noted to be gram-negative tejal. The patient's CT of the chest, which was done yesterday was reviewed and the results were reviewed. IMPRESSION: 1. Altered mental status versus toxic metabolic encephalopathy versus acute exacerbation of dementia. 2. Unstable sacral decubitus ulceration. 3. Hypertension. 4. Anasarca and venous stasis of the lower extremity with scrotal edema. 5. Severe gait dysfunction and deconditioning. 6. Moderate obesity with elevated body mass index of greater than 36. 7. Anemia. 8. Status post packed red blood cell transfusion. 9. Prerenal kidney injury. 10. 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 11. Hypertension. 12. Transaminitis. 14. Hypertension. 15. Elevated prostate-specific antigen of 9.1 and 7.9. 16. Gram-negative tejal urinary tract infection. 17. Status post packed red blood cells transfusion x2. 18. Bilateral large pleural effusion. 19. Bibasilar atelectasis and upper lobe atelectasis. 20. Left base pleural calcification. 21. Cardiomegaly 22. Mediastinal lymphadenopathy. 23. Osteopenia. 24. Degenerative joint disease of the spine. 25. Left gynecomastia. 26. Bilateral airspace disease. 27. Anasarca. 28. Possible fatty liver and hepatic echogenicity with elevated hepatomegaly. 29. Increased gallbladder wall thickness. 30. Bilateral renal cyst. 31. Insulin-requiring diabetes mellitus. 32. Dementia. 33. History of hypocalcemia. 34. Hypovitaminosis D. 35. Urinary retention with prostatic hypertrophy. 35. Constipation. 36. Dementia. 1. Questionable and possible sepsis with fever and bibasilar pneumonia, atelectasis and possible pleural effusion. 2. Healthcare-associated bibasilar pneumonia. 3. Uncontrolled hypertension. 4. Questionable anasarca. 5. Scrotal and penile edema. 6. Bilateral lower extremity venous stasis. 7. Transient hypoxemia. 8. Anemia. 9. Status post packed red blood cell transfusion x1. 10. Hypokalemia. 11. Prerenal kidney injury. 12. Transaminitis. 13. Questionable urinary tract infection with proteinuria, pyuria, bacteriuria, hematuria. 14. Bifascicular block with right bundle-branch block, left anterior hemiblock. 15. Dementia. 16. Vision impairment versus questionable diabetic retinopathy. 17. Insulin-requiring diabetes mellitus. 18. Hypovitaminosis D. 19. Gait dysfunction. 20. Obesity with elevated body mass index of 36.5. 21. History of dementia. 22. Prostatic hypertrophy with history of elevated prostate-specific antigen. 23. History of urinary retention and hydronephrosis. 24. History of constipation. PLAN: At this time, the patient's Lasix will be increased to 40 mg IV q. 12. Surgical consultation with Dr. Plunkett ordered. The patient's ultrasound of the abdomen final report is pending, which will be reviewed. The patient's current medications Aricept 10 mg at bedtime, Caltrate 600 mg daily which will be considered to be stopped once the calcium level is within normal limits, doxycycline 100 mg p.o. q. 12, Drisdol 50,000 units weekly, Ecotrin 81 mg daily, Flomax 0.4 mg daily, folic acid 1 mg daily, Humalog low-dose sliding scale coverage a.c. and at bedtime. Lasix increased to 40 mg IV q. 12, Lopressor 50 mg twice a day with improvement of blood pressure, now average blood pressure in the last 24 hours is 150/92, 160/90. The patient is on Lovenox 40 mg subQ daily, DVT prophylaxis, meropenem 500 mg IV q. 8, MiraLax 17 g twice a day, Pepcid 20 mg daily, Risperdal 1 mg daily, Tylenol 650 q. 6 p.r.n. The patient is to be continued on the above therapeutic intervention. The patient has been ordered serial labs. The patient has been ordered out of bed to recliner. Physical therapy, occupational therapy, ambulation therapy, gait training has been ordered. Neurology consultation has been ordered. CT of the head stat has been ordered, results pending. The patient has been ordered Neurology consultation, neuro checks. CT of the head for evaluation of altered mental status and confusion. Overall, the patient's prognosis is guarded to poor secondary to advanced age, multiple complicated underlying comorbidity and recurrent hospitalization in the last 30-60 days, which has been explained to the patient's next of kin during the last hospitalization also. Eliezer Hanna MD [facility]
--- NOTE | 2017-05-17 19:58 | CP.PCM.PCO ---
Physician Communication Note - Physician Communication Note Physician Communication Note: Stage III Sacral Decubitus:Rx Santyl/Diuresis/[employer]
--- NOTE | 2017-05-18 03:35 | CON ---
NEUROLOGY CONSULTATION REPORT DATE: REASON FOR CONSULTATION: Altered mental status. HISTORY OF PRESENT ILLNESS: The patient is a 76-year-old male who has been asked for evaluation of altered mental status. The patient is a [facility] resident who was transferred because of abnormal lab work. His hemoglobin was low and he was afebrile. The patient is unable to give history, history is mainly from the chart. The patient's baseline is confused and occasionally gets agitated. REVIEW OF SYSTEMS: Denies any headache, dizziness, chest pain, shortness of breath, abdominal pain, constipation, diarrhea, cough, sputum production, dizziness, or hallucinations. PAST MEDICAL HISTORY: Includes diabetes mellitus and hypertension. MEDICATIONS AT HOME: Included clonidine, Flomax, metoprolol, insulin, folic acid, Pepcid, enoxaparin, Aricept, vitamin D, aspirin, and amino acid. ALLERGIES: NO KNOWN DRUG ALLERGIES. SOCIAL HISTORY: The patient is a nonsmoker and nonalcoholic. Denies use of any illicit drugs. FAMILY HISTORY: Unknown. PHYSICAL EXAMINATION: GENERAL: The patient is an elderly male, lying on the bed, and in no acute distress. VITAL SIGNS: Blood pressure is 121/66, heart rate is 72 per minute, breathing at rate of 16 per minute, and temperature is 98 degrees Fahrenheit. HEENT: Head is normocephalic and atraumatic. NECK: Supple. There are no carotid bruits. LUNGS: Clear. CARDIOVASCULAR: S1 and S2 audible. No murmurs. ABDOMEN: Soft and nontender. Bowel sounds are present. NEUROLOGIC: Mental status, the patient is awake and alert; however, he tends to keep his eyes closed and does not open his eyes at all. He follows some commands. He is oriented to self and he knows that he is in the hospital and he does not know the year and the month. His cranial nerve examination; pupils, he kept his eyes closed. There is no facial asymmetry. Motor examination; tone is normal. He has minimal withdrawal of his extremities to noxious and painful stimuli. He does have generalized edema. Reflexes are absent. Plantars; no response. Gait is deferred. Apparently, the patient is bed bound. LABORATORY DATA: Reviewed, shows WBC of 7.3, hemoglobin of 10.4, hematocrit of 31.5, and platelet of 227. Sodium is 142, potassium 4.2, chloride 108, carbon dioxide content 27, BUN of 33, creatinine of 1.2, and glucose of 139. His urine shows WBC of 14 to 20, positive nitrite. IMPRESSION: 1. Altered mental status, which appears to be secondary to underlying urinary tract infection. 2. Underlying dementia. RECOMMENDATIONS: 1. The patient to have an electroencephalogram. 2. The patient to be continued on antibiotics for his urinary tract infection. 3. The patient to have vitamin B12, T4, and TSH levels. 4. The patient may be continued on Risperdal for his agitation. 5. The patient is to be continued on Aricept. 6. Please continue other treatment and supportive care. Thank you for the opportunity to participate in the care of this patient. Toy Kaur MD
[2017-05-18] MEDS: Meropenem 500 MG in Sodium Chloride 0.9% 100 ML IVPB SCH ×3 (05:07→21:57)
[2017-05-18 06:35] LABS: HEMATOCRIT 31.7 % (42.0-52.0); MEAN CELL VOLUME 88.1 fl (80.0-105.0); MEAN CORPUSCULAR HEMOGLOBIN 28.9 pg (25.0-35.0); MEAN CORPUSCULAR HGB CONC 32.8 g/dl (31.0-37.0); MEAN PLATELET VOLUME 9.4 fl (7.0-11.0); RED CELL DISTRIBUTION WIDTH 16.1 % (11.5-14.5); WHITE BLOOD COUNT 9.5 10^3/ul (4.5-11.0)
[2017-05-18 07:07] LABS: T4 8.5 ug/dL (5.5-11.0)
[2017-05-18 07:19] LABS: THYROID STIMULATING HORMONE 4.21 mIU/mL (0.46-4.68)
[2017-05-18 07:25] LABS: ALB/GLOB RATIO 0.7 (1.1-1.8); BILIRUBIN,TOTAL 0.6 mg/dL (0.2-1.3); CALCIUM 8.4 mg/dL (8.4-10.5); POTASSIUM 4.1 mmol/L (3.6-5.0); TOTAL PROTEIN 6.7 g/dL (5.8-8.3)
[2017-05-18] MEDS: Insulin Lispro (humaLOG) LOW Coverage SC SCH ×4 (11:01→21:57)
[2017-05-18] MEDS: Enoxaparin 40 mg Syringe SC SCH (11:05)
[2017-05-18] MEDS: POLYETHYLENE GLYCOL 3350 17 GM/Dose PACKET PO SCH ×2 (11:06→18:24)
[2017-05-18] MEDS: Prostat 15 g packet PO SCH ×2 (11:07→18:25)
[2017-05-18] MEDS: Clotrimazole/Betamethasone Lotion(30 ml) TOP SCH ×2 (11:08→18:24)
[2017-05-18] MEDS: Collagenase 250 Units/gm Ointment(30 gm) TOP SCH (11:08)
--- NOTE | 2017-05-18 11:51 | US ---
HISTORY: Leg pain and swelling. Evaluate for DVT PHYSICIAN(S): Eliazar Cardona MD. TECHNIQUE: Duplex sonography and color-flow Doppler with graded compression were used to evaluate the deep venous systems of both lower extremities. The exam is limited by body habitus and edema. The tibial veins are not well seen FINDINGS: The visualized deep venous systems of both lower extremities are sonographically normal and compressible. Normal wave forms and augmentation are seen. There is no sonographic evidence for deep venous thrombosis in the visualized segments of both lower extremities. IMPRESSION: No sonographic evidence for deep venous thrombosis in the visualized segments of both lower extremities. Limited study.
--- NOTE | 2017-05-18 12:54 | PN ---
DATE: NEUROLOGY PROGRESS NOTE SUBJECTIVE: The patient is lying on the bed in no acute distress. Denies having any headache or dizziness. PHYSICAL EXAMINATION: VITAL SIGNS: His blood pressure is 150/80, heart rate is 74 per minute, breathing at the rate of 16 per minute, and temperature is 99.1 degrees Fahrenheit. HEENT: Head is normocephalic and atraumatic. NECK: Supple. There are no carotid bruits. LUNGS: Clear. CARDIOVASCULAR SYSTEM: S1 and S2 audible. No murmurs. GASTROINTESTINAL: Abdomen is soft and nontender. Bowel sounds are present. NEUROLOGIC: Mental status: The patient is awake, alert and oriented to month, it is April, he knows the name of the president, and he knows the year. He follows simple commands. Cranial nerve examination: Pupils are 2 mm nonreactive to light. Extraocular movements are intact. There is no facial asymmetry. He is moving all 4 extremities. Power appears to be 3/5 allover. Plantars are downgoing bilaterally. LABORATORY DATA: Reviewed and shows WBC of 9.5, hemoglobin of 10.4, hematocrit of 31.7, and platelets of 337. Sodium is 142, potassium is 4.1, chloride is 106, carbon dioxide is 31, BUN of 39, creatinine of 1.4 and glucose of 140. His vitamin B12 level is pending. His T4 and TSH are normal. IMPRESSION: 1. Status post altered mental status. 2. Urinary tract infection. RECOMMENDATIONS: 1. The patient has electroencephalogram, which is normal. 2. The patient be continued on antibiotics. 3. The patient's vitamin B12 level needs to be followed up. 4. The patient may be continued on Aricept for his underlying mild dementia. 5. Please continue supportive care and treatment. Thank you for the opportunity to participate in the care of this patient. Toy Kaur MD
--- NOTE | 2017-05-18 13:06 | CP.PCM.PN ---
Subjective - Date & Time of Evaluation Date of Evaluation: 05/18/17 Time of Evaluation: 10:00 - Subjective Subjective: PGY-[address] Hanna Patient seen and examined at bedside. No acute distress, patient is resting comfortably. Patient is alert and oriented to person, place, time and situation. Patient does not have any complaints. Objective - Vital Signs/Intake and Output Vital Signs (last 24 hours): Temp Pulse Resp BP Pulse Ox 99.1 F 74 20 150/80 95 05/18/17 08:49 05/18/17 11:05 05/18/17 08:49 05/18/17 11:02 05/18/17 08:49 Intake and Output: 05/18/17 05/18/17 06:59 18:59 Intake Total 300 Output Total 1950 Balance -1650 - Medications Medications: Current Medications Acetaminophen (Tylenol 325mg Tab) 650 mg PO Q6H PRN PRN Reason: Fever >100.4 F Aspirin (Ecotrin) 81 mg PO DAILY [facility] Last Admin: 05/18/17 11:00 Dose: 81 mg Betamethasone/Clotrimazole (Lotrisone) 0 ml TOP BID [facility] Last Admin: 05/18/17 11:08 Dose: 1 applic Clonidine HCl (Catapres) 0.1 mg PO Q6H PRN PRN Reason: .hypertension Last Admin: 05/16/17 10:41 Dose: 0.1 mg Collagenase (Santyl) 0 gm TOP DAILY [facility] Last Admin: 05/18/17 11:08 Dose: 1 applic Docusate Sodium (Colace) 100 mg PO TID [facility] Last Admin: 05/18/17 11:00 Dose: 100 mg Donepezil HCl (Aricept) 10 mg PO HS [facility] Last Admin: 05/17/17 21:38 Dose: 10 mg Doxycycline Hyclate (Doryx) 100 mg PO Q12 [facility] PRN Reason: Protocol Stop: 05/25/17 10:19 Last Admin: 05/18/17 11:00 Dose: 100 mg Enoxaparin Sodium (Lovenox) 40 mg SC DAILY [facility] PRN Reason: Protocol Last Admin: 05/18/17 11:05 Dose: 40 mg Ergocalciferol (Drisdol 50,000 Intl Units Cap) 1 cap PO Q7D [facility] Famotidine (Pepcid) 20 mg PO DAILY [facility] Last Admin: 05/18/17 11:01 Dose: 20 mg Folic Acid (Folic Acid) 1 mg PO DAILY [facility] Last Admin: 05/18/17 11:01 Dose: 1 mg Furosemide (Lasix) 40 mg IVP Q12 [facility] Last Admin: 05/18/17 11:02 Dose: 40 mg Meropenem 500 mg/ Sodium (Chloride) 100 mls @ 100 mls/hr IVPB Q8 [facility] PRN Reason: Protocol Stop: 05/25/17 14:01 Last Admin: 05/18/17 05:07 Dose: 100 mls/hr Insulin Human Lispro (Humalog Low) 0 units SC ACHS [facility] PRN Reason: Protocol Last Admin: 05/18/17 11:01 Dose: Not Given Metoprolol Tartrate (Lopressor) 50 mg PO BID [facility] Last Admin: 05/18/17 11:05 Dose: 50 mg Polyethylene Glycol (Miralax) 17 gm PO BID [facility] Last Admin: 05/18/17 11:06 Dose: 17 gm Risperidone (Risperdal Tab) 1 mg PO DAILY [facility] PRN Reason: Protocol Last Admin: 05/18/17 11:02 Dose: 1 mg Tamsulosin HCl (Flomax) 0.4 mg PO DAILY [facility] Last Admin: 05/18/17 11:01 Dose: 0.4 mg - Labs Labs: 05/18/17 06:27 05/18/17 06:27 PT 14.0 SECONDS (9.4-12.5) H 05/15/17 20:45 INR 1.28 (0.93-1.08) H 05/15/17 20:45 APTT 33.0 Seconds (25.1-36.5) 05/15/17 20:45 - Constitutional Appears: No Acute Distress - Head Exam Head Exam: ATRAUMATIC, NORMAL INSPECTION, NORMOCEPHALIC - Eye Exam Eye Exam: EOMI, Normal appearance - ENT Exam ENT Exam: Mucous Membranes Moist - Respiratory Exam Respiratory Exam: Clear to Ausculation Bilateral, NORMAL BREATHING PATTERN. absent: Decreased Breath Sounds, Rales, Rhonchi, Wheezes, Respiratory Distress - Cardiovascular Exam Cardiovascular Exam: REGULAR RHYTHM. absent: Tachycardia, Murmur - GI/Abdominal Exam GI & Abdominal Exam: Soft, Normal Bowel Sounds. absent: Distended, Firm, Guarding, Tenderness - Extremities Exam Extremities Exam: Normal Inspection. absent: Pedal Edema, Tenderness - Neurological Exam Neurological Exam: Alert, Awake, Oriented x3 - Skin Skin Exam: Dry, Intact, Normal Color, Warm Assessment and Plan - Assessment and Plan (Free Text) Assessment: 76 yo male with PMH of Diabetes type 2, dementia and HTN will be admitted for evaluation and treatment for anemia and UTI. Plan: 1. UTI - WBC normal, febrile - cm replaced by urology on 05/17 - Blood cultures negative - urine cultures grew gram negative rods - abx meropenem and doxycycline - ID Consulted 2. Anemia - Hgb 8.9 on admission, improved - Transfused 2 unit pRBC - Cont to monitor, transfused as needed 3. AMS - improved - history of Dementia - most likely due to UTI - continue aricept and Risperidone 4. anasarca and venous stasis - improved - lasix was increased to 40mg q12 5.Hyperkalemia - resolved - Cont to monitor 6. tranamintits - improved - hepatitis panel negative - cont to monitor 7. Diabetes type 2 - controlled - ISS - Accuchecks ACHS 8. HTN - controlled - Lopressor 50 mg PO BID - Clonidine 0.1 mg PO q6h prn GI/DVT PPx - Pepcid - Lovenox - SCDs/TEDs
--- NOTE | 2017-05-18 19:31 | CP.PCM.PN ---
Subjective - Date & Time of Evaluation Date of Evaluation: 05/18/17 Time of Evaluation: 17:25 - Subjective Subjective: Comfortable, no fevers overnight, not in distress. Objective - Vital Signs/Intake and Output Vital Signs (last 24 hours): Temp Pulse Resp BP Pulse Ox 99.3 F 75 19 127/62 98 05/18/17 16:00 05/18/17 16:00 05/18/17 16:00 05/18/17 16:00 05/18/17 16:00 Intake and Output: 05/18/17 05/18/17 06:59 18:59 Intake Total 300 Output Total 1950 Balance -1650 - Medications Medications: Current Medications Acetaminophen (Tylenol 325mg Tab) 650 mg PO Q6H PRN PRN Reason: Fever >100.4 F Aspirin (Ecotrin) 81 mg PO DAILY [facility] Last Admin: 05/18/17 11:00 Dose: 81 mg Betamethasone/Clotrimazole (Lotrisone) 0 ml TOP BID [facility] Last Admin: 05/18/17 11:08 Dose: 1 applic Clonidine HCl (Catapres) 0.1 mg PO Q6H PRN PRN Reason: .hypertension Last Admin: 05/16/17 10:41 Dose: 0.1 mg Collagenase (Santyl) 0 gm TOP DAILY [facility] Last Admin: 05/18/17 11:08 Dose: 1 applic Docusate Sodium (Colace) 100 mg PO TID [facility] Last Admin: 05/18/17 13:48 Dose: 100 mg Donepezil HCl (Aricept) 10 mg PO HS [facility] Last Admin: 05/17/17 21:38 Dose: 10 mg Doxycycline Hyclate (Doryx) 100 mg PO Q12 [facility] PRN Reason: Protocol Stop: 05/25/17 10:19 Last Admin: 05/18/17 11:00 Dose: 100 mg Enoxaparin Sodium (Lovenox) 40 mg SC DAILY [facility] PRN Reason: Protocol Last Admin: 05/18/17 11:05 Dose: 40 mg Ergocalciferol (Drisdol 50,000 Intl Units Cap) 1 cap PO Q7D [facility] Famotidine (Pepcid) 20 mg PO DAILY [facility] Last Admin: 05/18/17 11:01 Dose: 20 mg Folic Acid (Folic Acid) 1 mg PO DAILY [facility] Last Admin: 05/18/17 11:01 Dose: 1 mg Furosemide (Lasix) 40 mg IVP Q12 [facility] Last Admin: 05/18/17 11:02 Dose: 40 mg Meropenem 500 mg/ Sodium (Chloride) 100 mls @ 100 mls/hr IVPB Q8 [facility] PRN Reason: Protocol Stop: 05/25/17 14:01 Last Admin: 05/18/17 13:50 Dose: 100 mls/hr Insulin Human Lispro (Humalog Low) 0 units SC ACHS [facility] PRN Reason: Protocol Last Admin: 05/18/17 13:50 Dose: 1 units Metoprolol Tartrate (Lopressor) 50 mg PO BID [facility] Last Admin: 05/18/17 11:05 Dose: 50 mg Polyethylene Glycol (Miralax) 17 gm PO BID [facility] Last Admin: 05/18/17 11:06 Dose: 17 gm Risperidone (Risperdal Tab) 1 mg PO DAILY [facility] PRN Reason: Protocol Last Admin: 05/18/17 11:02 Dose: 1 mg Tamsulosin HCl (Flomax) 0.4 mg PO DAILY [facility] Last Admin: 05/18/17 11:01 Dose: 0.4 mg - Labs Labs: 05/18/17 06:27 05/18/17 06:27 PT 14.0 SECONDS (9.4-12.5) H 05/15/17 20:45 INR 1.28 (0.93-1.08) H 05/15/17 20:45 APTT 33.0 Seconds (25.1-36.5) 05/15/17 20:45 - Constitutional Appears: Chronically Ill - Head Exam Head Exam: NORMAL INSPECTION - Neck Exam Neck Exam: absent: Meningismus - Respiratory Exam Respiratory Exam: Decreased Breath Sounds - Cardiovascular Exam Cardiovascular Exam: +S1, +S2 - GI/Abdominal Exam GI & Abdominal Exam: Soft. absent: Tenderness Assessment and Plan - Assessment and Plan (Free Text) Plan: Assessment sepsis due to bilateral HCAP and UTI with ESBL-producing Klebsiella history of right hip femoral neck fracture S/P hemiarthroplasty DM HTN obesity with BMI 33 Plan continue Doxycycline and Merrem day 3 and will continue to monitor clinically
--- NOTE | 2017-05-18 22:05 | PN ---
DATE OF SERVICE: 05/18/2017 SUBJECTIVE: The patient is seen in room #375, bed #1. The patient is lying in the bed. The patient is more awake today and responsive, less confused. OBJECTIVE: VITAL SIGNS: T-max 99.3, heart rate 77 to 75, blood pressure is down to 127/52,150/80, 121/66, 130/70, 139/82, respiration 19, O2 saturation 98%, intake 300, output 1950. HEENT: Head examination, normocephalic, atraumatic. HEENT examination shows pinkish pale conjunctivae, anicteric sclerae. No oropharyngeal lesion. No neck rigidity. CHEST: Kyphosis. LUNGS: Examination shows no rales, crackles, or wheezing. CARDIOVASCULAR: S1 and S2, regular rhythm,questionable soft systolic murmur at left sternal border, right second intercostal space, left second intercostal space. ABDOMEN: Soft, obese, distended, protuberant. GENITALIA: Male, positive Mckeon catheter. EXTREMITIES: Show positive swelling and pitting edema of the lower extremity which is less. Upper extremity also shows swelling with Tesfaye wraps noted. MUSCULOSKELETAL: Examination shows a body mass index of 36.5. NEUROLOGIC: The patient is alert, awake, responsive, is able to move upper and lower extremity to stimuli. Gait examination is not tested. DIAGNOSTIC STUDIES: On 05/18/2017, WBC 9.5, hemoglobin and hematocrit 10.4 and 31.6, platelets 337, fingerstick blood sugar 161, 169, 129. Sodium 142, potassium 4.1, chloride 106, CO2 31, anion gap 9, BUN up to 39, creatinine 1.4, GFR 60, glucose 140, hemoglobin A1c 7.6, calcium 8.4, ALT 77 which has come down from 82, alkaline phosphatase is 180 which has come down from 280, 204, ammonia level is less than 9, albumin 2.9, vitamin D level is 14.4, B12 456, TSH is 4.2, RPR is negative, hepatitis A, B, C serologies negative. Repeat urine cultures, Gram-negative tejal. Urine culture from 05/15/2017 shows extended spectrum beta-lactamase Klebsiella pneumoniae sensitive only to imipenem, meropenem, gentamicin, and Bactrim. CURRENT CONSULTATIONS: 1. Nephrology. 2. Infectious Disease. 3. Urology. 4. Neurology. 5. Surgery. CURRENT MEDICATIONS: 1. Aricept 10 mg at bedtime. 2. Clonidine 0.1 mg q. 6 p.r.n. 3. Colace 100 mg 3 times a day. 4. Doxycycline 100 mg p.o. q. 12. 5. Drisdol 50,000 weekly. 6. Ecotrin 81 mg daily. 7. Flomax 0.4 mg daily. 8. Folic acid 1 mg daily. 9. Humalog low-dose sliding scale coverage before meals and at bedtime. 10. Lasix 40 mg IV q. 12. 11. Lopressor 50 mg twice a day. 12. Lotrisone cream to the affected area. 13. Lovenox 40 mg subcutaneous daily for DVT prophylaxis. 14. Meropenem 500 mg IV q. 8. 15. MiraLax 17 g twice a day. 16. Pepcid 20 mg daily. 17. Pro-Stat 15 g twice a day. 18. Risperdal 1 mg daily. 19. Santyl to the affected area to the sacral decubitus ulceration. 20. Tylenol 650 q. 6 p.r.n. IMPRESSION: 1. Transient episodic confusion and encephalopathy. 2. Extended spectrum beta-lactamase Klebsiella pneumoniae urinary tract infection. 3. Hypertension. 4. Bilateral upper and lower extremity venostasis. 5. Anasarca. 6. Volume overload. 7. Normocytic anemia. 8. Granulocytosis. 9. Status post packed red blood cell transfusion. 10. Insulin-requiring diabetes mellitus with hemoglobin A1c of 7.6. 11. Prerenal kidney injury. 12. Transaminitis. 13. Elevated prostate-specific antigen of 7.9 and 9.1. 14. Hypovitaminosis D. 15. Mild hypoalbuminemia. 16. Extended spectrum beta-lactamase Klebsiella pneumoniae and Gram-negative tejal urinary tract infection with proteinuria, hematuria, pyuria, bacteriuria. 17. Severe gait dysfunction and deconditioning. 18. Status post packed red blood cell transfusion. 19. Bifascicular block with incomplete right bundle-branch block and left anterior hemiblock. 20. Morbid obesity. 21. Status post altered mental status, transient confusion, and encephalopathy. 22. Acute exacerbation of dementia. 23. Sepsis due to bilateral healthcare-associated pneumonia, urinary tract infection, and extended spectrum beta-lactamase Klebsiella pneumoniae urinary tract infection. 24. Gait dysfunction. 25. Dementia. 26. Constipation. 27. Prostatic hypertrophy, history of urinary retention, history of possible obstructive uropathy. 28. Hypertension. 1. Altered mental status versus toxic metabolic encephalopathy versus acute exacerbation of dementia. 2. Unstable sacral decubitus ulceration. 3. Hypertension. 4. Anasarca and venous stasis of the lower extremity with scrotal edema. 5. Severe gait dysfunction and deconditioning. 6. Moderate obesity with elevated body mass index of greater than 36. 7. Anemia. 8. Status post packed red blood cell transfusion. 9. Prerenal kidney injury. 10. 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 11. Hypertension. 12. Transaminitis. 14. Hypertension. 15. Elevated prostate-specific antigen of 9.1 and 7.9. 16. Gram-negative tejal urinary tract infection. 17. Status post packed red blood cells transfusion x2. 18. Bilateral large pleural effusion. 19. Bibasilar atelectasis and upper lobe atelectasis. 20. Left base pleural calcification. 21. Cardiomegaly 22. Mediastinal lymphadenopathy. 23. Osteopenia. 24. Degenerative joint disease of the spine. 25. Left gynecomastia. 26. Bilateral airspace disease. 27. Anasarca. 28. Possible fatty liver and hepatic echogenicity with elevated hepatomegaly. 29. Increased gallbladder wall thickness. 30. Bilateral renal cyst. 31. Insulin-requiring diabetes mellitus. 32. Dementia. 33. History of hypocalcemia. 34. Hypovitaminosis D. 35. Urinary retention with prostatic hypertrophy. 35. Constipation. 36. Dementia. 1. Questionable and possible sepsis with fever and bibasilar pneumonia, atelectasis and possible pleural effusion. 2. Healthcare-associated bibasilar pneumonia. 3. Uncontrolled hypertension. 4. Questionable anasarca. 5. Scrotal and penile edema. 6. Bilateral lower extremity venous stasis. 7. Transient hypoxemia. 8. Anemia. 9. Status post packed red blood cell transfusion x1. 10. Hypokalemia. 11. Prerenal kidney injury. 12. Transaminitis. 13. Questionable urinary tract infection with proteinuria, pyuria, bacteriuria, hematuria. 14. Bifascicular block with right bundle-branch block, left anterior hemiblock. 15. Dementia. 16. Vision impairment versus questionable diabetic retinopathy. 17. Insulin-requiring diabetes mellitus. 18. Hypovitaminosis D. 19. Gait dysfunction. 20. Obesity with elevated body mass index of 36.5. 21. History of dementia. 22. Prostatic hypertrophy with history of elevated prostate-specific antigen. 23. History of urinary retention and hydronephrosis. 24. History of constipation. PLAN: At this time, the patient has been ordered repeat labs. The patient's HIV test is pending. Repeat urine cultures were ordered.. Consistent carbohydrate diet, out of bed, physical therapy, occupational therapy ordered. The patient is today seen by the social insurance analyst. The patient's EEG was completed, results pending. At present, the patient will be continued on the above therapeutic intervention. Eliezer Hanna MD MTDD
[2017-05-19] MEDS: Meropenem 500 MG in Sodium Chloride 0.9% 100 ML IVPB SCH ×3 (05:59→22:04)
[2017-05-19 07:14] LABS: HEMATOCRIT 33.3 % (42.0-52.0); MEAN CELL VOLUME 88.1 fl (80.0-105.0); MEAN CORPUSCULAR HEMOGLOBIN 28.3 pg (25.0-35.0); MEAN CORPUSCULAR HGB CONC 32.1 g/dl (31.0-37.0); MEAN PLATELET VOLUME 9.5 fl (7.0-11.0); WHITE BLOOD COUNT 7.4 10^3/ul (4.5-11.0)
[2017-05-19 07:29] LABS: ALB/GLOB RATIO 0.8 (1.1-1.8); ALKALINE PHOSPHATASE 186 U/L (38-126); ALT/SGPT 81 U/L (7-56); AST/SGOT 61 U/L (17-59); BILIRUBIN,DIRECT 0.4 mg/dL (0.0-0.4); BILIRUBIN,TOTAL 0.6 mg/dL (0.2-1.3); BLOOD UREA NITROGEN 38 mg/dL (7-21); CALCIUM 8.4 mg/dL (8.4-10.5); CARBON DIOXIDE 32 mmol/L (21-33); CHLORIDE 102 mmol/L (95-110); GFR AFRICAN-AMERICAN > 60; GLUCOSE,RANDOM 172 mg/dL (70-110); POTASSIUM 4.1 mmol/L (3.6-5.0); SODIUM 140 mmol/L (132-148); TOTAL PROTEIN 6.7 g/dL (5.8-8.3)
--- NOTE | 2017-05-19 08:52 | EEG ---
DATE: 05/18/2017 INTRODUCTION: This is a digitally recorded EEG monitoring using standard EEG montages. BACKGROUND RHYTHM: The EEG shows a background activity of 8 Hz delta activity in parietooccipital region. The EEG activity is bilaterally symmetrical and synchronous. There is attenuation of the background activity on eye opening. A small amount of myogenic artifact noted in this EEG recording. ABNORMAL POTENTIALS: No spike, sharp waves, or focal slowing was seen. PHOTIC STIMULATION AND HYPERVENTILATION: Photic stimulation did not reveal any abnormality. Hyperventilation was not performed. IMPRESSION: Normal electroencephalogram. No epileptiform activity is seen in this electroencephalogram recording. Toy Kaur MD
[2017-05-19] MEDS: Insulin Lispro (humaLOG) LOW Coverage SC SCH ×4 (10:51→21:59)
[2017-05-19] MEDS: Clotrimazole/Betamethasone Lotion(30 ml) TOP SCH ×2 (10:56→18:34)
[2017-05-19] MEDS: Collagenase 250 Units/gm Ointment(30 gm) TOP SCH (10:56)
[2017-05-19] MEDS: Enoxaparin 40 mg Syringe SC SCH (10:57)
[2017-05-19] MEDS: POLYETHYLENE GLYCOL 3350 17 GM/Dose PACKET PO SCH ×2 (10:58→18:35)
[2017-05-19] MEDS: Prostat 15 g packet PO SCH ×3 (11:01→18:35)
--- NOTE | 2017-05-19 11:09 | CP.PCM.PN ---
Subjective - Date & Time of Evaluation Date of Evaluation: 05/19/17 Time of Evaluation: 09:00 - Subjective Subjective: PGY-[address] Hanna's service Patient seen and examined at bedside. No acute distress, patient is resting comfortably. Patient is alert and oriented to person, place, time and situation. Patient states that he is hungry, he does not have any other complaints. Objective - Vital Signs/Intake and Output Vital Signs (last 24 hours): Temp Pulse Resp BP Pulse Ox 98.6 F 72 20 150/80 99 05/19/17 08:18 05/19/17 08:18 05/19/17 08:18 05/19/17 08:18 05/19/17 08:18 Intake and Output: 05/19/17 05/19/17 06:59 18:59 Intake Total 300 240 Output Total 1800 Balance 300 -1560 - Medications Medications: Current Medications Acetaminophen (Tylenol 325mg Tab) 650 mg PO Q6H PRN PRN Reason: Fever >100.4 F Aspirin (Ecotrin) 81 mg PO DAILY [facility] Last Admin: 05/18/17 11:00 Dose: 81 mg Betamethasone/Clotrimazole (Lotrisone) 0 ml TOP BID [facility] Last Admin: 05/18/17 18:24 Dose: 1 applic Clonidine HCl (Catapres) 0.1 mg PO Q6H PRN PRN Reason: .hypertension Last Admin: 05/16/17 10:41 Dose: 0.1 mg Collagenase (Santyl) 0 gm TOP DAILY [facility] Last Admin: 05/18/17 11:08 Dose: 1 applic Docusate Sodium (Colace) 100 mg PO TID [facility] Last Admin: 05/18/17 18:14 Dose: 100 mg Donepezil HCl (Aricept) 10 mg PO HS [facility] Last Admin: 05/18/17 21:48 Dose: 10 mg Doxycycline Hyclate (Doryx) 100 mg PO Q12 [facility] PRN Reason: Protocol Stop: 05/25/17 10:19 Last Admin: 05/18/17 21:48 Dose: 100 mg Enoxaparin Sodium (Lovenox) 40 mg SC DAILY [facility] PRN Reason: Protocol Last Admin: 05/18/17 11:05 Dose: 40 mg Ergocalciferol (Drisdol 50,000 Intl Units Cap) 1 cap PO Q7D [facility] Famotidine (Pepcid) 20 mg PO DAILY [facility] Last Admin: 05/18/17 11:01 Dose: 20 mg Folic Acid (Folic Acid) 1 mg PO DAILY [facility] Last Admin: 05/18/17 11:01 Dose: 1 mg Furosemide (Lasix) 40 mg IVP Q12 [facility] Last Admin: 05/18/17 21:48 Dose: 40 mg Meropenem 500 mg/ Sodium (Chloride) 100 mls @ 100 mls/hr IVPB Q8 [facility] PRN Reason: Protocol Stop: 05/25/17 14:01 Last Admin: 05/19/17 05:59 Dose: 100 mls/hr Insulin Human Lispro (Humalog Low) 0 units SC ACHS [facility] PRN Reason: Protocol Last Admin: 05/18/17 21:57 Dose: Not Given Metoprolol Tartrate (Lopressor) 50 mg PO BID [facility] Last Admin: 05/18/17 18:24 Dose: 50 mg Polyethylene Glycol (Miralax) 17 gm PO BID [facility] Last Admin: 05/18/17 18:24 Dose: 17 gm Risperidone (Risperdal Tab) 1 mg PO DAILY [facility] PRN Reason: Protocol Last Admin: 05/18/17 11:02 Dose: 1 mg Tamsulosin HCl (Flomax) 0.4 mg PO DAILY [facility] Last Admin: 05/18/17 11:01 Dose: 0.4 mg - Labs Labs: 05/19/17 07:00 05/19/17 07:00 PT 14.0 SECONDS (9.4-12.5) H 05/15/17 20:45 INR 1.28 (0.93-1.08) H 05/15/17 20:45 APTT 33.0 Seconds (25.1-36.5) 05/15/17 20:45 - Constitutional Appears: No Acute Distress - Head Exam Head Exam: ATRAUMATIC, NORMAL INSPECTION, NORMOCEPHALIC - ENT Exam ENT Exam: Mucous Membranes Moist - Respiratory Exam Respiratory Exam: Clear to Ausculation Bilateral, NORMAL BREATHING PATTERN. absent: Decreased Breath Sounds, Rales, Rhonchi, Wheezes, Respiratory Distress - Cardiovascular Exam Cardiovascular Exam: REGULAR RHYTHM, +S1, +S2. absent: Tachycardia, Murmur - GI/Abdominal Exam GI & Abdominal Exam: Soft, Normal Bowel Sounds. absent: Distended, Firm, Guarding, Tenderness - Neurological Exam Neurological Exam: Alert, Awake, Oriented x3 - Skin Skin Exam: Dry, Normal Color, Warm Assessment and Plan - Assessment and Plan (Free Text) Assessment: 76 yo male with PMH of Diabetes type 2, dementia and HTN will be admitted for evaluation and treatment for ams most likely secondary to UTI and anemia. Plan: 1. UTI - WBC normal, febrile - cm replaced by urology on 05/17 - Blood cultures negative - urine cultures grew klebsiella pneumoniae - abx meropenem and doxycycline - ID Consulted 2. Anemia - Hgb 8.9 on admission, improved - Transfused 2 unit pRBC total - Cont to monitor, transfused as needed 3. AMS - improved - history of Dementia - most likely due to UTI - continue aricept and Risperidone - EEG was normal - neuro consulted recommended continue aricept 4. anasarca and venous stasis - improved - lasix was increased to 40mg q12 5.Hyperkalemia - resolved - Cont to monitor 6. tranamintits - hepatitis panel negative - cont to monitor 7. Diabetes type 2 - controlled - ISS - Accuchecks ACHS 8. HTN - controlled - Lopressor 50 mg PO BID - Clonidine 0.1 mg PO q6h prn GI/DVT PPx - Pepcid - Lovenox - SCDs/TEDs
--- NOTE | 2017-05-19 11:40 | CP.PCM.PN ---
Subjective - Date & Time of Evaluation Date of Evaluation: 05/19/17 Time of Evaluation: 10:55 - Subjective Subjective: Comfortable in bed, no fevers overnight, not in distress, no diarrhea. Objective - Vital Signs/Intake and Output Vital Signs (last 24 hours): Temp Pulse Resp BP Pulse Ox 98.6 F 72 20 150/80 99 05/19/17 08:18 05/19/17 08:18 05/19/17 08:18 05/19/17 08:18 05/19/17 08:18 Intake and Output: 05/19/17 05/19/17 06:59 18:59 Intake Total 300 240 Output Total 1800 Balance 300 -1560 - Medications Medications: Current Medications Acetaminophen (Tylenol 325mg Tab) 650 mg PO Q6H PRN PRN Reason: Fever >100.4 F Aspirin (Ecotrin) 81 mg PO DAILY [facility] Last Admin: 05/18/17 11:00 Dose: 81 mg Betamethasone/Clotrimazole (Lotrisone) 0 ml TOP BID [facility] Last Admin: 05/18/17 18:24 Dose: 1 applic Clonidine HCl (Catapres) 0.1 mg PO Q6H PRN PRN Reason: .hypertension Last Admin: 05/16/17 10:41 Dose: 0.1 mg Collagenase (Santyl) 0 gm TOP DAILY [facility] Last Admin: 05/18/17 11:08 Dose: 1 applic Docusate Sodium (Colace) 100 mg PO TID [facility] Last Admin: 05/18/17 18:14 Dose: 100 mg Donepezil HCl (Aricept) 10 mg PO HS [facility] Last Admin: 05/18/17 21:48 Dose: 10 mg Doxycycline Hyclate (Doryx) 100 mg PO Q12 [facility] PRN Reason: Protocol Stop: 05/25/17 10:19 Last Admin: 05/18/17 21:48 Dose: 100 mg Enoxaparin Sodium (Lovenox) 40 mg SC DAILY [facility] PRN Reason: Protocol Last Admin: 05/18/17 11:05 Dose: 40 mg Ergocalciferol (Drisdol 50,000 Intl Units Cap) 1 cap PO Q7D [facility] Famotidine (Pepcid) 20 mg PO DAILY [facility] Last Admin: 05/18/17 11:01 Dose: 20 mg Folic Acid (Folic Acid) 1 mg PO DAILY [facility] Last Admin: 05/18/17 11:01 Dose: 1 mg Furosemide (Lasix) 40 mg IVP Q12 [facility] Last Admin: 05/18/17 21:48 Dose: 40 mg Meropenem 500 mg/ Sodium (Chloride) 100 mls @ 100 mls/hr IVPB Q8 [facility] PRN Reason: Protocol Stop: 05/25/17 14:01 Last Admin: 05/19/17 05:59 Dose: 100 mls/hr Insulin Human Lispro (Humalog Low) 0 units SC ACHS [facility] PRN Reason: Protocol Last Admin: 05/18/17 21:57 Dose: Not Given Metoprolol Tartrate (Lopressor) 50 mg PO BID [facility] Last Admin: 05/18/17 18:24 Dose: 50 mg Polyethylene Glycol (Miralax) 17 gm PO BID [facility] Last Admin: 05/18/17 18:24 Dose: 17 gm Risperidone (Risperdal Tab) 1 mg PO DAILY [facility] PRN Reason: Protocol Last Admin: 05/18/17 11:02 Dose: 1 mg Tamsulosin HCl (Flomax) 0.4 mg PO DAILY [facility] Last Admin: 05/18/17 11:01 Dose: 0.4 mg - Labs Labs: 05/19/17 07:00 05/19/17 07:00 PT 14.0 SECONDS (9.4-12.5) H 05/15/17 20:45 INR 1.28 (0.93-1.08) H 05/15/17 20:45 APTT 33.0 Seconds (25.1-36.5) 05/15/17 20:45 - Constitutional Appears: Non-toxic - Head Exam Head Exam: NORMAL INSPECTION - Neck Exam Neck Exam: absent: Meningismus - Respiratory Exam Respiratory Exam: Decreased Breath Sounds - Cardiovascular Exam Cardiovascular Exam: +S1, +S2 - GI/Abdominal Exam GI & Abdominal Exam: Soft. absent: Tenderness Assessment and Plan - Assessment and Plan (Free Text) Plan: Assessment sepsis due to bilateral HCAP and UTI with ESBL-producing Klebsiella history of right hip femoral neck fracture S/P hemiarthroplasty DM HTN obesity with BMI 33 Plan continue Doxycycline and Merrem day 4 and will continue to monitor clinically - would complete 10 days of therapy
--- NOTE | 2017-05-19 14:23 | PN ---
NEUROLOGY PROGRESS NOTE SUBJECTIVE: The patient is lying on the bed, in no acute distress. Denies having any headache or dizziness. PHYSICAL EXAMINATION VITAL SIGNS: His blood pressure is 150/80, heart rate is 72 per minute, breathing at a rate of 16 per minute, temperature is 98.6 degrees Fahrenheit. HEENT: Head is normocephalic, atraumatic. NECK: Supple. There are no carotid bruits. LUNGS: Clear. CARDIOVASCULAR SYSTEM: S1 and S2 are audible. No murmurs. ABDOMEN: Soft and nontender with bowel sounds present. NEUROLOGY: Mental status: The patient is awake and alert, oriented to place, year, month. He follows all simple commands. Cranial nerve examination: Pupils 2 mm, nonreactive to light. Extraocular movements are intact. There is no facial asymmetry. He is moving all 4 extremities. Power appears to be 3 to 4/5. Plantars are downgoing bilaterally. LABORATORY DATA: Labs reviewed, which shows WBC 7.4, hemoglobin 10.7, hematocrit 33.3 and platelets of 322. His sodium is 140, potassium 4.1, chloride 102, carbon dioxide 32, BUN of 38, creatinine 1.3 and glucose of 172. His vitamin B12 level is 456. IMPRESSION: 1. Status post altered mental status. 2. Mild dementia. 3. Urinary tract infection. RECOMMENDATIONS: 1. The patient's mental status seems to be at baseline now. 2. The patient to be continued on antibiotics. 3. The patient is to also continue to be on Aricept, which he is tolerating very well. 4. Please continue other treatment. 5. No further neurologic recommendations. Please call Neurology on an as needed basis. Thank you for the opportunity to participate in the care of this patient. Toy Kaur MD
--- NOTE | 2017-05-19 20:57 | CON ---
DATE: 05/19/2017 The patient is admitted for Dr. Hanna. The patient's family physician is Dr. Roby Cardona. REFERRING PHYSICIAN: Dr. Hanna. REASON FOR CONSULTATION: Evaluation of the patient unknown to me who presents with mild elevation of his BUN and creatinine in the setting of a UTI and pneumonia. HISTORY OF PRESENT ILLNESS: The patient is a 76-year-old black male who was transferred over from a [facility] because of abnormal labs. The patient has a history of IDDM, history of hypertension, he is an indwelling Mckeon catheter. History of anemia, history of mild hyperkalemia on admission with a potassium of 5.3 treated with the Kayexalate, potassium fell to 4.1. The patient noted to have an elevated BUN and creatinine with a BUN ranging from 31 to 38, last was 38. Baseline BUN earlier this year was less than 20. Creatinine has ranged from 1.2 to 1.4 last being 1.3. Baseline creatinine was 1.1. The patient is currently being treated for a ESBL Klebsiella UTI and pneumonia. He did have a negative renal ultrasound. The patient also remains on diuretic therapy for his pleural effusions. 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 MEDICATIONS AT HOME: Included that of clonidine, Flomax, MiraLax, Lopressor, insulin, folic acid, Pepcid, Lovenox, Aricept, vitamin D3, Calcitrate, aspirin, and amino acids supplements. ALLERGIES: NO KNOWN ALLERGIES TO MEDICATIONS. CURRENT MEDICATIONS IN HOSPITAL: Include that of Aricept, Catapres, Colace, Doryx, vitamin D, Ecotrin, Flomax, folic acid, insulin, IV Lasix, Lopressor, Lotrisone, Lovenox, meropenem, MiraLax, Pepcid, Risperdal, Santyl, and Tylenol p.r.n. SOCIAL HISTORY: No history of cigarette smoking. No history of alcohol use. FAMILY HISTORY: Parents of complications of heart disease according to the patient. REVIEW OF SYSTEMS: Difficult to obtain but as best as I can tell. GENERAL: Weight has been stable. Appetite has been unchanged. EARS, NOSE, AND THROAT: Denies any hearing or visual problems. PULMONARY: Admits to no shortness of breath. No history of COPD, no history of emphysema or bronchitis. No recent pneumonias. CARDIAC: No known history of coronary artery disease. No history of CHF. GASTROINTESTINAL: No nausea. No vomiting. No diarrhea. No constipation. No abdominal pain. GENITOURINARY: Possible chronic kidney disease stage II with a creatinine in the low 1 range. History of a chronic indwelling Mckeon catheter. Perhaps history of recurrent UTIs. ENDOCRINE: History of diabetes mellitus, noncompliant with outpatient insulin therapy. MUSCULOSKELETAL: No complaints. NEUROLOGIC: No past history of CVA, TIA, seizures or syncope. HEMATOLOGY AND ONCOLOGY: History of anemia. No history of malignancy. PSYCHIATRIC: History is negative. PHYSICAL EXAMINATION GENERAL: The patient is currently seen on 3R. He is lying comfortable in bed. He remains on isolation because of his ESBL Klebsiella. VITAL SIGNS: Blood pressure ranging from 127 to 150 systolic, diastolic ranging from 62 to 80. Heart rate is 72. Respiratory rate is 20 with a temperature of 98.6. On admission the patient's temperature was 100.6. HEENT: Shows him to be normocephalic, atraumatic. Conjunctivae are pale. Sclerae are nonicteric. Pupils appear equal light and accommodation. Extraocular muscles are intact. Posterior pharynx appears normal. NECK: Supple. No neck vein distention, no thyromegaly, no lymphadenopathy, no bruits. CHEST: Decreased breath sounds at bases with scattered rales. No rhonchi or wheezing. CARDIOVASCULAR: Shows a regular rate and rhythm without audible murmurs, rubs, or gallops. ABDOMEN: Soft. Bowel sounds normal. No rebound or guarding. No masses. EXTREMITIES: Show no cyanosis, no clubbing and no pitting edema. He appears to have stasis dermatitis changes of his lower extremity. He has dressings over his legs and feet. NEUROLOGIC: Shows him to be alert, oriented x3. No gross focal motor or sensory deficits noted. LABORATORY DATA AND IMAGING STUDIES: Admitting EKG showed a normal sinus rhythm, left anterior hemiblock with an incomplete right bundle-branch block. No acute changes. Admitting chest x-ray showed bilateral infiltrates suspicious of pneumonia. Followup chest CT showed bilateral infiltrates along with pleural effusions. Abdominal ultrasound showed normal kidneys. No hydronephrosis or bilateral cysts. Lower extremity Doppler study was negative for DVT. Labs: CBC: White blood cell count 7.4, hemoglobin 10.7, was 8.9 on admission, and the patient received 2 units of packed red blood cells. Platelet count is normal, 322,000. Coags: PT 14 with a PTT of 33. Chemistries on admission BUN 33, BUN today is 38 on IV diuretic therapy. Admitting creatinine was 1.3, today's creatinine is 1.3, again on diuretic therapy. Electrolytes now normal. Potassium was 5.3. He received Kayexalate, now down to 4.1. Glucose is 172. Calcium is 8.4. Phosphorus was normal at 3.9. Magnesium level was normal at 2.0. Mild elevation of his liver enzymes. Albumin level was 2.9. Vitamin B12 level was normal. Thyroid function tests are normal. Urine showed 15 to 20 white blood cells per high-power field with many bacteria and trace protein. Hepatitis serologies were negative. Microbiology: Urine was positive for Klebsiella ESBL. Blood cultures are negative at 3 days. ASSESSMENT: 1. Mild prerenal azotemia likely in the setting of chronic kidney disease stage II. The patient remains on diuretic therapy for pleural effusion, sent to prevent lower extremity edema given his history of what appears to be stasis dermatitis. The patient will likely remain mildly prerenal. We will accept a mild degree of BUN and creatinine elevation. The patient may be transitioned over from IV to p.o. Lasix. The patient should remain in mildly negative fluid balance. 2. Extended-spectrum beta-lactamase Klebsiella urinary tract infection. The patient with chronic indwelling Mckeon catheter. The patient is on appropriate antibiotic therapy. 3. Healthcare-associated pneumonia. Bilateral with pleural effusions. The patient remains on IV antibiotic therapy. He appears to be asymptomatic. 4. History of insulin-dependent diabetes mellitus. As per chart, it appears that his blood sugar control has not been good secondary to noncompliance. His hemoglobin A1c nevertheless was 7.6 on admission. 5. History of hypertension. Blood pressure remains controlled on present medical therapy. We should avoid MARJAN inhibition angiotensin receptor ld therapy. In light of his mild elevation of BUN and creatinine, he was not taking his medications at home either. 6. History of anemia. Perhaps secondary to urinary tract infection pneumonia and mild elevation of his BUN and creatinine with bone marrow suppression. The patient received transfusions. Hemoglobin presently is 10.7. Should his hemoglobin drop over 10, the patient would be a candidate for Aranesp and perhaps iron therapy. 7. Status post mild hyperkalemia, treated appropriately with Kayexalate. PLAN: 1. Discussed with staff on 3R. From a renal standpoint, the patient appears to be relatively stable. Mild prerenal azotemia is unavoidable given any trial of IV Lasix therapy. 2. Try and keep the patient in mild negative fluid balance and cautioned not to over diurese the patient. The patient likely can be transitioned over to oral Lasix soon. 3. Complete course of antibiotic therapy for his ESBL Klebsiella and for his HCAP pneumonia. 4. PRN Aranesp and iron as noted above. 5. Continue tight insulin coverage with good glucose control. 6. Follow labs on a frequent basis. 7. Monitor accurate I's and O's. Thank you for letting me partake and share in the care of your patient. Jonas Angeles MD
--- NOTE | 2017-05-19 22:42 | PN ---
DATE OF SERVICE: 05/19/2017 SUBJECTIVE: The patient is seen lying in room #375, bed #1. The patient does not appear to be agitated. The patient is alert, awake, responsive, and oriented to person. Overnight nurses' notes were reviewed. No adverse event documented. The patient is feeling better. The patient's upper and lower extremity swelling is significantly reduced. The patient reports positive bowel movement. CURRENT MEDICATIONS: Aricept 10 mg at bedtime, clonidine 0.1 mg q.6 p.r.n., Colace 100 mg 3 times a day, doxycycline 100 mg p.o. q.12, Drisdol 50,000 units weekly, Ecotrin 81 mg daily, folic acid 1 mg daily, Flomax 0.4 mg daily, Humalog low-dose sliding scale coverage, Lasix 40 mg IV q.12, Lopressor 50 mg twice a day. The patient is on Lotrisone cream to the affected area, Lovenox 40 mg subcutaneous daily DVT prophylaxis, meropenem 500 mg IV q.8 hours as per Infectious Disease recommendation, duration of the IV antibiotic is anywhere from 7 to 10 days; MiraLax 17 g twice a day, Pepcid 20 mg daily, Risperdal 1 mg at bedtime, Risperdal 1 mg daily, Santyl to the decubitus ulceration area daily, Tylenol 650 q.6 p.r.n. OBJECTIVE: VITAL SIGNS: T-max is 99.3, pulse is 72 to 73, blood pressure 150/80 to 163/95, respiration 18 to 20, O2 saturation 99% to 100%. HEENT: Head, normocephalic, atraumatic. HEENT examination, pinkish pale conjunctivae. Anicteric sclerae. No oropharyngeal lesion. NECK: No neck rigidity. CHEST: Kyphosis. LUNGS: Show decreased breath sound at the bases. Positive questionable fine crackles noted. Positive rhonchi noted bilaterally. CARDIOVASCULAR: S1 and S2, regular rhythm. ABDOMEN: Less protuberant. Positive bowel sounds. GENITALIA: Male. Positive Mckeon catheter. Slightly decreasing anasarca, abdominal wall swelling, and scrotal swelling. EXTREMITIES: Show decreasing pitting edema of the lower extremity. Positive SCDs. HAIM stockings missing. MUSCULOSKELETAL: Shows an elevated body mass index of greater than 36. NEUROLOGIC: The patient is alert, awake, responsive, follows simple command, is unable to be out of bed to chair. Gait examination not performed. The patient is seen every day lying in the bed. DIAGNOSTIC STUDIES: WBC 7.4, hemoglobin and hematocrit 10.7 and 33.3, platelet 322. CMP and LFTs were reviewed, they are within normal limit with slightly elevated BUN. Creatinine is 1.3. LFT shows elevated AST, ALT and alkaline phosphatase. IMPRESSION: 1. Sepsis. 2. Multilobar bilateral healthcare-associated pneumonia. 3. Extended spectrum beta-lactamase Klebsiella pneumoniae urinary tract infection. 4. Fever. 5. Hypertension. 6. Impaired vision, probably secondary to diabetic retinopathy and vision impairment. 7. Normocytic anemia. 8. Status post packed red blood cell transfusion x2. 9. Insulin-requiring diabetes mellitus with hemoglobin A1c of 7.1. 10. Transaminitis, etiology undetermined. 11. Sacral decubitus unstageable ulceration. 12. Severe gait dysfunction and deconditioning. 13. Morbid obesity with elevated body mass index of almost 37. 14. Dementia. 15. Constipation. 16. Hypovitaminosis D. 17. Prostatic hypertrophy with obstructive uropathy and urinary retention. 18. Bilateral upper and lower extremity venostasis and volume overload. 19. Bilateral pleural effusion, atelectasis, and pneumonia. 1. Transient episodic confusion and encephalopathy. 2. Extended spectrum beta-lactamase Klebsiella pneumoniae urinary tract infection. 3. Hypertension. 4. Bilateral upper and lower extremity venostasis. 5. Anasarca. 6. Volume overload. 7. Normocytic anemia. 8. Granulocytosis. 9. Status post packed red blood cell transfusion. 10. Insulin-requiring diabetes mellitus with hemoglobin A1c of 7.6. 11. Prerenal kidney injury. 12. Transaminitis. 13. Elevated prostate-specific antigen of 7.9 and 9.1. 14. Hypovitaminosis D. 15. Mild hypoalbuminemia. 16. Extended spectrum beta-lactamase Klebsiella pneumoniae and Gram-negative tejal urinary tract infection with proteinuria, hematuria, pyuria, bacteriuria. 17. Severe gait dysfunction and deconditioning. 18. Status post packed red blood cell transfusion. 19. Bifascicular block with incomplete right bundle-branch block and left anterior hemiblock. 20. Morbid obesity. 21. Status post altered mental status, transient confusion, and encephalopathy. 22. Acute exacerbation of dementia. 23. Sepsis due to bilateral healthcare-associated pneumonia, urinary tract infection, and extended spectrum beta-lactamase Klebsiella pneumoniae urinary tract infection. 24. Gait dysfunction. 25. Dementia. 26. Constipation. 27. Prostatic hypertrophy, history of urinary retention, history of possible obstructive uropathy. 28. Hypertension. 1. Altered mental status versus toxic metabolic encephalopathy versus acute exacerbation of dementia. 2. Unstable sacral decubitus ulceration. 3. Hypertension. 4. Anasarca and venous stasis of the lower extremity with scrotal edema. 5. Severe gait dysfunction and deconditioning. 6. Moderate obesity with elevated body mass index of greater than 36. 7. Anemia. 8. Status post packed red blood cell transfusion. 9. Prerenal kidney injury. 10. 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 11. Hypertension. 12. Transaminitis. 14. Hypertension. 15. Elevated prostate-specific antigen of 9.1 and 7.9. 16. Gram-negative tejal urinary tract infection. 17. Status post packed red blood cells transfusion x2. 18. Bilateral large pleural effusion. 19. Bibasilar atelectasis and upper lobe atelectasis. 20. Left base pleural calcification. 21. Cardiomegaly 22. Mediastinal lymphadenopathy. 23. Osteopenia. 24. Degenerative joint disease of the spine. 25. Left gynecomastia. 26. Bilateral airspace disease. 27. Anasarca. 28. Possible fatty liver and hepatic echogenicity with elevated hepatomegaly. 29. Increased gallbladder wall thickness. 30. Bilateral renal cyst. 31. Insulin-requiring diabetes mellitus. 32. Dementia. 33. History of hypocalcemia. 34. Hypovitaminosis D. 35. Urinary retention with prostatic hypertrophy. 35. Constipation. 36. Dementia. 1. Questionable and possible sepsis with fever and bibasilar pneumonia, atelectasis and possible pleural effusion. 2. Healthcare-associated bibasilar pneumonia. 3. Uncontrolled hypertension. 4. Questionable anasarca. 5. Scrotal and penile edema. 6. Bilateral lower extremity venous stasis. 7. Transient hypoxemia. 8. Anemia. 9. Status post packed red blood cell transfusion x1. 10. Hypokalemia. 11. Prerenal kidney injury. 12. Transaminitis. 13. Questionable urinary tract infection with proteinuria, pyuria, bacteriuria, hematuria. 14. Bifascicular block with right bundle-branch block, left anterior hemiblock. 15. Dementia. 16. Vision impairment versus questionable diabetic retinopathy. 17. Insulin-requiring diabetes mellitus. 18. Hypovitaminosis D. 19. Gait dysfunction. 20. Obesity with elevated body mass index of 36.5. 21. History of dementia. 22. Prostatic hypertrophy with history of elevated prostate-specific antigen. 23. History of urinary retention and hydronephrosis. 24. History of constipation. PLAN: At this time, the patient is seen by Infectious Disease. The patient is seen by General Surgery. The patient has been seen by Neurology. EEG was read as negative as per Neurology. The patient is seen by Urology. Their recommendation is to continue the Mckeon catheter placement. At present, the patient is to be continued on the above therapeutic intervention. The patient's further management will be depending upon the patient's clinical condition, hemodynamic status, as per the patient's response to therapeutic intervention, and as per recommendation by all the physicians involved in the care of the patient. I have personally spoken to the patient's daughter, Yue, today via the phone and I have updated the patient's daughter about all the details of the patient's condition, diagnosis, test results, and recommendation by all the physicians involved in the care of the patient. I have reemphasized from the previous hospitalization about multiple issues about the patient to the patient's daughter. I have advised the patient's daughter that the patient's medical condition and medical status are severely deconditioned and decompensated. The patient needs aggressive physical therapy, ambulation therapy, gait training, and assistance with all the activities of daily living. The patient's daughter was advised to explore all options and levels of physical therapy, ambulation therapy, and rehab placement. The patient's daughter has already met with the Social Service. I have advised the patient's daughter that if the patient comes home eventually, the patient will require 24-hour care and supervision and assistance with activities of daily living. I have also discussed with the patient's daughter about options of long-term placement and jail placement which I have advised the patient's daughter to discuss with the [facility]. The patient's daughter was also advised about the patient's declining overall medical condition, decompensated state, and [id number] prognosis because of multiple comorbidities and decompensated state. All of the above was explained to the patient's daughter, Yue, at length and all questions concerned answered in detail to patient's daughter satisfaction. Eliezer Hanna MD [place]
[2017-05-20] MEDS: Meropenem 500 MG in Sodium Chloride 0.9% 100 ML IVPB SCH ×3 (05:04→22:00)
[2017-05-20 06:41] LABS: HEMATOCRIT 32.5 % (42.0-52.0); MEAN CELL VOLUME 88.3 fl (80.0-105.0); MEAN CORPUSCULAR HEMOGLOBIN 28.5 pg (25.0-35.0); MEAN CORPUSCULAR HGB CONC 32.3 g/dl (31.0-37.0); MEAN PLATELET VOLUME 9.4 fl (7.0-11.0); RED CELL DISTRIBUTION WIDTH 15.7 % (11.5-14.5); WHITE BLOOD COUNT 9.8 10^3/ul (4.5-11.0)
[2017-05-20 07:04] VITALS: RESP 20
[2017-05-20 07:09] LABS: ALB/GLOB RATIO 0.7 (1.1-1.8); ALKALINE PHOSPHATASE 176 U/L (38-126); ALT/SGPT 93 U/L (7-56); AST/SGOT 64 U/L (17-59); BILIRUBIN,DIRECT 0.5 mg/dL (0.0-0.4); BILIRUBIN,TOTAL 0.7 mg/dL (0.2-1.3); BLOOD UREA NITROGEN 37 mg/dL (7-21); CALCIUM 8.5 mg/dL (8.4-10.5); CARBON DIOXIDE 33 mmol/L (21-33); CHLORIDE 100 mmol/L (95-110); GFR AFRICAN-AMERICAN > 60; GLUCOSE,RANDOM 216 mg/dL (70-110); MAGNESIUM 1.8 mg/dL (1.7-2.2); PHOSPHOROUS 3.5 mg/dL (2.5-4.5); SODIUM 140 mmol/L (132-148); TOTAL PROTEIN 6.8 g/dL (5.8-8.3)
[2017-05-20 07:13] LABS: IRON 13 ug/dL (45-180)
[2017-05-20] MEDS: Insulin Lispro (humaLOG) LOW Coverage SC SCH ×4 (08:18→22:00)
--- NOTE | 2017-05-20 08:25 | CON ---
DATE: 05/18/2017 REASON FOR CONSULTATION: Acute kidney injury, hypernatremia. HISTORY OF PRESENTING ILLNESS: A 76-year-old male admitted on 05/15/2017 because of low hemoglobin. The [facility] because of the low hemoglobin. The patient had an indwelling Mckeon catheter. At the time of presentation, he was confused and agitated. He denied any chest pain, shortness of breath, nausea, vomiting, or diarrhea. At the time of presentation, he was found to have a hemoglobin of 8.9, he was found to have pyuria and hyperkalemia. Elevated creatinine of 1.3. PAST MEDICAL/SURGICAL HISTORY: NIDDM, hypertension, dementia, nonhealing ulcers on the feet. FAMILY HISTORY: Heart disease in mother. SOCIAL HISTORY: No smoking, no alcohol use, no IV drug abuse. ALLERGIES: NO KNOWN DRUG ALLERGIES. MEDICATIONS: In the [facility] had been clonidine, Flomax, Lopressor, insulin, Pepcid, Lovenox, Aricept, vitamin D, calcium carbonate. REVIEW OF SYSTEMS: The patient denies any chest pain, palpitations. He denies any abdominal pain. He denies any nausea, vomiting at this time. He is uncomfortable because of his position. PHYSICAL EXAMINATION General: An elderly male, lying in bed. VITAL SIGNS: Blood pressure 127/62, heart rate 75, respiratory rate 18, temperature 99.3. T-max is 99.3. HEENT: Normocephalic, atraumatic, positive pallor. NECK: Supple, no JVD. LUNGS: Bilateral equal entry, bilateral equal expansion, no rales. CARDIAC: S1 and S2, regular rate and rhythm, no murmur, no rub. ABDOMEN: Obese, distended, soft, nontender, bowel sounds present. EXTREMITIES: Dressing off both feet. INTAKE AND OUTPUT: 1260/2830. LABORATORY DATA: WBC is 9.5, hemoglobin 10.4, hematocrit 32, platelets 337. Sodium 142, potassium 4.1, chloride 106, CO2 of 31, BUN 39, creatinine 1.4, glucose 140, A1c 7.6, calcium 8.4, AST 49, ALT 77, albumin 2.9, vitamin D 14. Urine culture, gram-negative tejal, Klebsiella. CT chest, large bilateral pleural effusions with atelectasis. Abdominal ultrasound; left kidney 10.2, normal echogenicity, no hydronephrosis. Right kidney, 10.2, no hydronephrosis. Lower extremity ultrasound, no DVT. CURRENT MEDICATIONS: Aricept, Catapres p.r.n., Colace, doxycycline 100 q.12, Drisdol once a week, Ecotrin, Flomax, folic acid, insulin, Lasix 40 IV q.12, Lopressor, Lotrisone, Lovenox, meropenem, Pepcid, and Risperdal. ASSESSMENT/PLAN: 1. Acute kidney injury superimposed on chronic kidney disease stage III. 2. Klebsiella urinary tract infection. 3. Bilateral pleural effusions. 4. [id number] diabetes mellitus. 5. Hypertension. 6. ?Congestive heart failure/cardiomyopathy. PLAN: 1. Agree with IV Lasix, keep O's greater than I's. 2. Recommend echocardiogram. 3. Continue antibiotics for Klebsiella UTI. 4. Dose all antibiotics for creatinine clearance about 40 mL/minute. 5. Monitor daily electrolytes. 6. Avoid nephrotoxins. Thank you for the courtesy of this consultation. We will follow this patient closely with you. Brunilda Argueta MD
[2017-05-20] MEDS: Enoxaparin 40 mg Syringe SC SCH (10:47)
[2017-05-20] MEDS: POLYETHYLENE GLYCOL 3350 17 GM/Dose PACKET PO SCH ×2 (10:49→17:19)
[2017-05-20] MEDS: Clotrimazole/Betamethasone Lotion(30 ml) TOP SCH ×2 (11:21→17:19)
[2017-05-20] MEDS: Collagenase 250 Units/gm Ointment(30 gm) TOP SCH (11:22)
[2017-05-20] MEDS: Prostat 15 g packet PO SCH ×2 (11:22→17:20)
--- NOTE | 2017-05-20 13:22 | CP.PCM.PN ---
Subjective - Date & Time of Evaluation Date of Evaluation: 05/20/17 Time of Evaluation: 10:50 - Subjective Subjective: Comfortable in bed, not in distress. Objective - Vital Signs/Intake and Output Vital Signs (last 24 hours): Temp Pulse Resp BP Pulse Ox 99.5 F 74 20 161/86 H 97 05/20/17 09:08 05/20/17 09:08 05/20/17 09:08 05/20/17 09:08 05/20/17 09:08 Intake and Output: 05/20/17 05/20/17 06:59 18:59 Intake Total 500 120 Output Total 900 1275 Balance -400 -1155 - Medications Medications: Current Medications Acetaminophen (Tylenol 325mg Tab) 650 mg PO Q6H PRN PRN Reason: Fever >100.4 F Aspirin (Ecotrin) 81 mg PO DAILY [facility] Last Admin: 05/19/17 10:51 Dose: 81 mg Betamethasone/Clotrimazole (Lotrisone) 0 ml TOP BID [facility] Last Admin: 05/19/17 18:34 Dose: Not Given Clonidine HCl (Catapres) 0.1 mg PO Q6H PRN PRN Reason: .hypertension Last Admin: 05/16/17 10:41 Dose: 0.1 mg Collagenase (Santyl) 0 gm TOP DAILY [facility] Last Admin: 05/19/17 10:56 Dose: 1 applic Docusate Sodium (Colace) 100 mg PO TID [facility] Last Admin: 05/19/17 18:56 Dose: Not Given Donepezil HCl (Aricept) 10 mg PO HS [facility] Last Admin: 05/19/17 22:04 Dose: 10 mg Doxycycline Hyclate (Doryx) 100 mg PO Q12 [facility] PRN Reason: Protocol Stop: 05/25/17 10:19 Last Admin: 05/19/17 22:04 Dose: 100 mg Enoxaparin Sodium (Lovenox) 40 mg SC DAILY [facility] PRN Reason: Protocol Last Admin: 05/19/17 10:57 Dose: 40 mg Ergocalciferol (Drisdol 50,000 Intl Units Cap) 1 cap PO Q7D [facility] Famotidine (Pepcid) 20 mg PO DAILY [facility] Last Admin: 05/19/17 10:58 Dose: 20 mg Folic Acid (Folic Acid) 1 mg PO DAILY [facility] Last Admin: 05/19/17 10:52 Dose: 1 mg Furosemide (Lasix) 40 mg IVP Q12 [facility] Last Admin: 05/19/17 22:04 Dose: 40 mg Meropenem 500 mg/ Sodium (Chloride) 100 mls @ 100 mls/hr IVPB Q8 [facility] PRN Reason: Protocol Stop: 05/25/17 14:01 Last Admin: 05/20/17 05:04 Dose: 100 mls/hr Iron Sucrose 200 mg/ Sodium (Chloride) 110 mls @ 110 mls/hr IVPB DAILY [facility] Stop: 05/22/17 10:59 Insulin Human Lispro (Humalog Low) 0 units SC ACHS [facility] PRN Reason: Protocol Last Admin: 05/20/17 08:18 Dose: 1 units Metoprolol Tartrate (Lopressor) 50 mg PO BID [facility] Last Admin: 05/19/17 18:34 Dose: 50 mg Polyethylene Glycol (Miralax) 17 gm PO BID [facility] Last Admin: 05/19/17 18:35 Dose: 17 gm Risperidone (Risperdal Tab) 1 mg PO DAILY [facility] PRN Reason: Protocol Last Admin: 05/19/17 10:58 Dose: 1 mg Tamsulosin HCl (Flomax) 0.4 mg PO DAILY [facility] Last Admin: 05/19/17 10:51 Dose: 0.4 mg - Labs Labs: 05/20/17 05:30 05/20/17 05:30 PT 14.0 SECONDS (9.4-12.5) H 05/15/17 20:45 INR 1.28 (0.93-1.08) H 05/15/17 20:45 APTT 33.0 Seconds (25.1-36.5) 05/15/17 20:45 - Constitutional Appears: Non-toxic, No Acute Distress - Head Exam Head Exam: NORMAL INSPECTION - ENT Exam ENT Exam: Mucous Membranes Moist - Neck Exam Neck Exam: absent: Lymphadenopathy, Meningismus - Respiratory Exam Respiratory Exam: Decreased Breath Sounds - Cardiovascular Exam Cardiovascular Exam: +S1, +S2 - GI/Abdominal Exam GI & Abdominal Exam: Soft. absent: Tenderness Assessment and Plan - Assessment and Plan (Free Text) Plan: Assessment sepsis due to bilateral HCAP and UTI with ESBL-producing Klebsiella history of right hip femoral neck fracture S/P hemiarthroplasty DM HTN obesity with BMI 33 Plan continue Doxycycline and Merrem day 5 and will continue to monitor clinically - would complete 10 days of therapy
--- NOTE | 2017-05-20 15:27 | PN ---
DATE OF SERVICE: 05/20/2017 SUBJECTIVE: The patient is seen lying in bed. He is awake, alert. PHYSICAL EXAMINATION: GENERAL: Obese elderly male, lying in bed. VITAL SIGNS: Blood pressure 161/86, heart rate 74, respiratory rate 20, temperature 99.5. HEENT: Normocephalic, atraumatic. Positive pallor. NECK: Supple, no JVD. LUNGS: Decreased air entry at bases. CARDIAC: S1 and S2, regular rate and rhythm, no murmur, no rub. ABDOMEN: Obese, distended, soft, nontender, bowel sounds present. EXTREMITIES: Dressing of the feet. INTAKE AND OUTPUT: 1940/4100. LABORATORY DATA: WBC 9.8, hemoglobin 10.5, hematocrit 33, platelets 301. Sodium 140, potassium 4.0, chloride 100, CO2 33, BUN 37, creatinine 1.2, glucose 216, calcium 8.5, phosphorus 3.5, magnesium 1.8, iron saturation 6, iron 13, ferritin pending, albumin 2.8. Urine culture, Klebsiella. CURRENT MEDICATIONS: Aricept, Catapres, Colace, doxycycline, ergocalciferol, Ecotrin, Flomax, folic acid, iron 200 IV piggyback, Lasix 40 IV q.12, Lopressor, Lotrisone, Lovenox, meropenem, MiraLax, Pepcid, Risperdal. ASSESSMENT: 1. Resolved acute kidney injury. 2. Underlying chronic kidney disease, stage II/III. 3. Congestive heart failure/pulmonary edema/bilateral pleural effusions. 4. Hypertension. 5. Cellulitis. 6. Dementia. PLAN: 1. Continue IV Lasix 40 IV q.12. 2. Keep O's greater than I's. 3. Continue IV iron. 4. Check stool occults. 5. Monitor electrolytes closely. 6. Check echocardiogram. 7. Continue antibiotics as per ID recommendations. Brunilda Argueta MD
--- NOTE | 2017-05-20 18:34 | US ---
PROCEDURE: Right upper extremity venous US CLINICAL HISTORY: Arm pain and swelling Evaluate for deep venous thrombosis. PHYSICIAN(S): Eliazar Cardona M.D FINDINGS: The visualized rightinternal jugular vein is sonographically normal and compressible. No evidence of obstruction or thrombus is seen. The visualized segments of the right subclavian vein are patent with normal waveforms. No sonographic evidence of obstruction or thrombosis is seen. The visualized deep venous system of the proximal right upper extremity is sonographically normal and compressible. IMPRESSION: 1. No sonographic evidence for deep venous thrombosis in the visualized segments of the right upper extremity.
[2017-05-21] MEDS: Meropenem 500 MG in Sodium Chloride 0.9% 100 ML IVPB SCH ×2 (05:50→13:52)
[2017-05-21 06:22] VITALS: PULSE 68
[2017-05-21 06:58] LABS: BASO # 0.04 K/mm3 (0.0-2.0); BASO % 0.5 % (0.0-3.0); EOS # 0.2 (0.0-0.7); GRAN # 6.14 (1.4-6.5); GRAN % 76.5 % (50.0-68.0); HEMATOCRIT 32.7 % (42.0-52.0); LYMPH # 0.9 (1.2-3.4); LYMPH % 11.7 % (22.0-35.0); MEAN CELL VOLUME 87.7 fl (80.0-105.0); MEAN CORPUSCULAR HEMOGLOBIN 28.4 pg (25.0-35.0); MEAN CORPUSCULAR HGB CONC 32.4 g/dl (31.0-37.0); MEAN PLATELET VOLUME 9.5 fl (7.0-11.0); MONO # 0.8 (0.1-0.6); MONO % 9.3 % (1.0-6.0); RED CELL DISTRIBUTION WIDTH 15.1 % (11.5-14.5)
[2017-05-21 07:07] LABS: ALB/GLOB RATIO 0.7 (1.1-1.8); ALKALINE PHOSPHATASE 178 U/L (38-126); ALT/SGPT 97 U/L (7-56); AST/SGOT 58 U/L (17-59); BILIRUBIN,DIRECT 0.6 mg/dL (0.0-0.4); BILIRUBIN,TOTAL 0.8 mg/dL (0.2-1.3); BLOOD UREA NITROGEN 35 mg/dL (7-21); CALCIUM 8.3 mg/dL (8.4-10.5); CARBON DIOXIDE 33 mmol/L (21-33); CHLORIDE 100 mmol/L (98-107); GFR AFRICAN-AMERICAN > 60; GLUCOSE,RANDOM 217 mg/dL (70-110); MAGNESIUM 1.8 mg/dL (1.7-2.2); PHOSPHOROUS 3.3 mg/dL (2.5-4.5); SODIUM 139 mmol/L (132-148); TOTAL PROTEIN 6.8 g/dL (5.8-8.3); URIC ACID 5.6 mg/dL (3.5-8.5)
[2017-05-21 09:26] VITALS: TEMP 97.8; O2SAT 96
--- NOTE | 2017-05-21 09:26 | CP.PCM.PN ---
Subjective - Date & Time of Evaluation Date of Evaluation: 05/21/17 Time of Evaluation: 09:24 - Subjective Subjective: PGY-[address] Hanna's service Patient seen and examined at bedside. No acute distress, patient is resting comfortably. Patient is alert and oriented to person, place, time and situation. Patient has no complaints, denies chest pain, abd pain, sob. Objective - Vital Signs/Intake and Output Vital Signs (last 24 hours): Temp Pulse Resp BP Pulse Ox 97.9 F 68 20 154/80 H 98 05/20/17 16:00 05/21/17 06:03 05/20/17 16:00 05/21/17 07:15 05/20/17 16:00 Intake and Output: 05/21/17 05/21/17 06:59 18:59 Intake Total 860 0 Output Total 500 1350 Balance 360 -1350 - Medications Medications: Current Medications Acetaminophen (Tylenol 325mg Tab) 650 mg PO Q6H PRN PRN Reason: Fever >100.4 F Aspirin (Ecotrin) 81 mg PO DAILY [facility] Last Admin: 05/20/17 10:47 Dose: 81 mg Betamethasone/Clotrimazole (Lotrisone) 0 ml TOP BID [facility] Last Admin: 05/20/17 17:19 Dose: 1 applic Cholecalciferol (Vitamin D) 2,000 iu PO DAILY [facility] Last Admin: 05/20/17 18:45 Dose: 2,000 iu Clonidine HCl (Catapres) 0.1 mg PO Q6H PRN PRN Reason: .hypertension Last Admin: 05/21/17 06:03 Dose: 0.1 mg Collagenase (Santyl) 0 gm TOP DAILY [facility] Last Admin: 05/20/17 11:22 Dose: 1 applic Docusate Sodium (Colace) 100 mg PO TID [facility] Last Admin: 05/20/17 17:19 Dose: 100 mg Donepezil HCl (Aricept) 10 mg PO HS [facility] Last Admin: 05/20/17 22:00 Dose: 10 mg Doxycycline Hyclate (Doryx) 100 mg PO Q12 [facility] PRN Reason: Protocol Stop: 05/25/17 10:19 Last Admin: 05/20/17 22:00 Dose: 100 mg Enoxaparin Sodium (Lovenox) 40 mg SC DAILY [facility] PRN Reason: Protocol Last Admin: 05/20/17 10:47 Dose: 40 mg Ergocalciferol (Drisdol 50,000 Intl Units Cap) 1 cap PO Q7D [facility] Famotidine (Pepcid) 20 mg PO DAILY [facility] Last Admin: 05/20/17 10:48 Dose: 20 mg Folic Acid (Folic Acid) 1 mg PO DAILY [facility] Last Admin: 05/20/17 10:48 Dose: 1 mg Furosemide (Lasix) 40 mg IVP Q12 [facility] Last Admin: 05/20/17 22:00 Dose: 40 mg Meropenem 500 mg/ Sodium (Chloride) 100 mls @ 100 mls/hr IVPB Q8 [facility] PRN Reason: Protocol Stop: 05/25/17 14:01 Last Admin: 05/21/17 05:50 Dose: 100 mls/hr Iron Sucrose 200 mg/ Sodium (Chloride) 110 mls @ 110 mls/hr IVPB DAILY [facility] Stop: 05/22/17 10:59 Last Admin: 05/20/17 10:47 Dose: 110 mls/hr Insulin Human Lispro (Humalog Med) 0 units SC ACHS [facility] PRN Reason: Protocol Metoprolol Tartrate (Lopressor) 50 mg PO BID [facility] Last Admin: 05/20/17 17:18 Dose: Not Given Polyethylene Glycol (Miralax) 17 gm PO BID [facility] Last Admin: 05/20/17 17:19 Dose: 17 gm Risperidone (Risperdal Tab) 1 mg PO DAILY [facility] PRN Reason: Protocol Last Admin: 05/20/17 10:48 Dose: 1 mg Tamsulosin HCl (Flomax) 0.4 mg PO DAILY [facility] Last Admin: 05/20/17 10:49 Dose: 0.4 mg - Labs Labs: 05/21/17 06:39 05/21/17 06:39 PT 14.0 SECONDS (9.4-12.5) H 05/15/17 20:45 INR 1.28 (0.93-1.08) H 05/15/17 20:45 APTT 33.0 Seconds (25.1-36.5) 05/15/17 20:45 - Constitutional Appears: No Acute Distress - Head Exam Head Exam: ATRAUMATIC, NORMAL INSPECTION, NORMOCEPHALIC - Eye Exam Eye Exam: EOMI, Normal appearance - ENT Exam ENT Exam: Mucous Membranes Moist - Respiratory Exam Respiratory Exam: Clear to Ausculation Bilateral, NORMAL BREATHING PATTERN. absent: Decreased Breath Sounds, Rales, Rhonchi, Wheezes, Respiratory Distress - Cardiovascular Exam Cardiovascular Exam: REGULAR RHYTHM, +S1, +S2. absent: Tachycardia, Murmur - GI/Abdominal Exam GI & Abdominal Exam: Soft, Normal Bowel Sounds. absent: Distended, Firm, Guarding, Tenderness - Extremities Exam Extremities Exam: absent: Pedal Edema - Neurological Exam Neurological Exam: Alert, Awake, Oriented x3 - Skin Skin Exam: Dry, Intact, Normal Color, Warm Assessment and Plan - Assessment and Plan (Free Text) Assessment: 76 yo male with PMH of Diabetes type 2, dementia and HTN will be admitted for evaluation and treatment for sepsis with altered mental status most likely secondary to UTI complicated with anemia. Plan: 1. sepsis due to UTI - WBC normal, afebrile - mc replaced by urology on 05/17 - Blood cultures negative - urine cultures grew klebsiella pneumoniae - abx meropenem and doxycycline - ID Consulted 2. Anemia - Hgb 8.9 on admission, improved - Transfused 2 unit pRBC total - Cont to monitor, transfuse as needed 3. AMS - improved, axo x4 - history of Dementia - most likely due to sespsis - continue aricept and Risperidone - EEG was normal - neuro consulted recommended continue aricept 4. anasarca and venous stasis - improved - lasix IV 40mg q12 - US of right upper extremity negative for DVT 5.Hyperkalemia - resolved - Cont to monitor 6. tranamintits - hepatitis panel negative - cont to monitor 7. Diabetes type 2 - elevated - ISS increased to lispro medium - levemir started - Accuchecks ACHS 8. HTN - controlled - Lopressor 50 mg PO BID - Clonidine 0.1 mg PO q6h prn GI/DVT PPx - Pepcid - Lovenox - SCDs/TEDs - placement pending, protective services social worker following
[2017-05-21] MEDS: Insulin Lispro (humaLOG) LOW Coverage SC SCH (10:30)
[2017-05-21] MEDS: Enoxaparin 40 mg Syringe SC SCH (10:43)
[2017-05-21] MEDS: POLYETHYLENE GLYCOL 3350 17 GM/Dose PACKET PO SCH ×2 (10:43→17:59)
[2017-05-21] MEDS: Collagenase 250 Units/gm Ointment(30 gm) TOP SCH (10:45)
[2017-05-21] MEDS: Clotrimazole/Betamethasone Lotion(30 ml) TOP SCH (10:45)
[2017-05-21] MEDS: Prostat 15 g packet PO SCH (10:45)
[2017-05-21 11:00] VITALS: BP 154/70
--- NOTE | 2017-05-21 11:39 | PN ---
DATE: 05/20/2017 LOCATION: The patient is seen in room 375, bed 1. SUBJECTIVE: The patient is seen lying in the bed. The patient is comfortable. Overnight nurse's notes were reviewed. The patient required decubitus ulceration care. The patient slept. The patient's bowel movement was recorded to be normal. The patient was seen again lying in the bed. PHYSICAL EXAMINATION: GENERAL: The patient is seen lying in the bed. VITAL SIGNS: T-max 99.5; pulse rate 74 to 72 to 73; blood pressure in the last 24 hours 163/95, 124/61, 161/86; respiration 20; O2 sat 97. INTAKE AND OUTPUT: Yesterday, intake was documented 1440 plus 600 which is 2040. Output was 4100. Today's intake 934, output 2600. HEENT: Head: Normocephalic, atraumatic. Eyes: Shows pinkish pale conjunctivae. Anicteric sclerae. No oropharyngeal lesion. Positive visual loss. NECK: No neck rigidity. No jugular venous distention. CHEST: Kyphosis. LUNGS: Shows decreased breath sound at the bases. Positive crackles. Rhonchi positive. CARDIOVASCULAR: S1 and S2, regular rhythm. Questionable soft systolic murmur, right second intercostal space left sternal border. ABDOMEN: Protuberant, soft. Positive bowel sound. GENITALIA: Male. Positive scrotal swelling. Positive Mckeon catheter. EXTREMITY: Shows decreasing pitting edema of the lower extremity, decreasing swelling and edema of the upper extremity but not completely resolved. Right upper extremity has more swelling, no pitting edema than the left upper extremity. VASCULAR: Palpate pulses. NEUROLOGIC: The patient is alert, awake, responsive. Gait examination is not tested. MUSCULOSKELETAL: Body mass index of 36. DIAGNOSTICS: On 05/20, WBC 9.8, hemoglobin and hematocrit 10.5 and 32.5, platelet 301. Chemistries from 05/20, fingerstick blood sugar 222, 300, 198, 216. Sodium 140, potassium 4.0, chloride 100, CO2 of 33, anion gap 11, BUN 37, creatinine 1.2, GFR greater than 60, glucose 216, calcium 8.5, phosphorus 3.5, magnesium 1.8, iron 13, TIBC 223, iron saturation 6. AST 64, ALT 93, alk phos 176, albumin 2.8. Vitamin D 25-hydroxy 14.4 which is low. RPR, hepatitis A, B, C serologies are negative. Urine culture, Klebsiella pneumoniae. Blood bank shows the patient received 2 units of PRBC. EEG official report is available, which is normal EEG. IMPRESSION: 1. Sepsis due to bilateral multilobar healthcare-associated pneumonia. 2. Extended-spectrum beta-lactamase Klebsiella urinary tract infection with trace proteinuria, hematuria, pyuria, bacteriuria. 3. Hypertension. 4. Bilateral upper and lower extremity venous stasis (resolving). 5. Volume and fluid overload with anasarca. 6. Chronic kidney disease, stage II/III. 7. Sacral decubitus ulceration. 8. Dementia. 9. Possible functional quadriplegia with bedridden status and severe deconditioning and gait dysfunction. 10. Left ventricular ejection fraction of 59%. 11. Pulmonary arterial hypertension with right ventricular systolic pressure of 55 mmHg and concentric left ventricular hypertrophy and grade 1 abnormal relaxation pattern. 12. Mild aortic regurgitation. 13. Mildly thickened mitral valve. 14. Moderate tricuspid regurgitation. 15. Acute recurrent right-sided diastolic congestive heart failure. 16. Unstageable sacral decubitus ulceration. 17. Normocytic anemia, status post packed red blood cell transfusion x2. 18. Granulocytosis. 19. Hyperglycemia and uncontrolled insulin-requiring diabetes mellitus with hemoglobin A1c of 7.6. 20. Transaminitis, etiology undetermined. 21. Iron-deficiency anemia. 22. Mild hypoalbuminemia. 23. Severe gait dysfunction and deconditioning and bedridden status and functional quadriplegia. 24. Hypovitaminosis D. 25. Hyperkalemia. 26. Constipation. 27. Prostatic hypertrophy with obstructive uropathy and urinary retention. 1. Sepsis. 2. Multilobar bilateral healthcare-associated pneumonia. 3. Extended spectrum beta-lactamase Klebsiella pneumoniae urinary tract infection. 4. Fever. 5. Hypertension. 6. Impaired vision, probably secondary to diabetic retinopathy and vision impairment. 7. Normocytic anemia. 8. Status post packed red blood cell transfusion x2. 9. Insulin-requiring diabetes mellitus with hemoglobin A1c of 7.1. 10. Transaminitis, etiology undetermined. 11. Sacral decubitus unstageable ulceration. 12. Severe gait dysfunction and deconditioning. 13. Morbid obesity with elevated body mass index of almost 37. 14. Dementia. 15. Constipation. 16. Hypovitaminosis D. 17. Prostatic hypertrophy with obstructive uropathy and urinary retention. 18. Bilateral upper and lower extremity venostasis and volume overload. 19. Bilateral pleural effusion, atelectasis, and pneumonia. 1. Transient episodic confusion and encephalopathy. 2. Extended spectrum beta-lactamase Klebsiella pneumoniae urinary tract infection. 3. Hypertension. 4. Bilateral upper and lower extremity venostasis. 5. Anasarca. 6. Volume overload. 7. Normocytic anemia. 8. Granulocytosis. 9. Status post packed red blood cell transfusion. 10. Insulin-requiring diabetes mellitus with hemoglobin A1c of 7.6. 11. Prerenal kidney injury. 12. Transaminitis. 13. Elevated prostate-specific antigen of 7.9 and 9.1. 14. Hypovitaminosis D. 15. Mild hypoalbuminemia. 16. Extended spectrum beta-lactamase Klebsiella pneumoniae and Gram-negative tejal urinary tract infection with proteinuria, hematuria, pyuria, bacteriuria. 17. Severe gait dysfunction and deconditioning. 18. Status post packed red blood cell transfusion. 19. Bifascicular block with incomplete right bundle-branch block and left anterior hemiblock. 20. Morbid obesity. 21. Status post altered mental status, transient confusion, and encephalopathy. 22. Acute exacerbation of dementia. 23. Sepsis due to bilateral healthcare-associated pneumonia, urinary tract infection, and extended spectrum beta-lactamase Klebsiella pneumoniae urinary tract infection. 24. Gait dysfunction. 25. Dementia. 26. Constipation. 27. Prostatic hypertrophy, history of urinary retention, history of possible obstructive uropathy. 28. Hypertension. 1. Altered mental status versus toxic metabolic encephalopathy versus acute exacerbation of dementia. 2. Unstable sacral decubitus ulceration. 3. Hypertension. 4. Anasarca and venous stasis of the lower extremity with scrotal edema. 5. Severe gait dysfunction and deconditioning. 6. Moderate obesity with elevated body mass index of greater than 36. 7. Anemia. 8. Status post packed red blood cell transfusion. 9. Prerenal kidney injury. 10. 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 11. Hypertension. 12. Transaminitis. 14. Hypertension. 15. Elevated prostate-specific antigen of 9.1 and 7.9. 16. Gram-negative tejal urinary tract infection. 17. Status post packed red blood cells transfusion x2. 18. Bilateral large pleural effusion. 19. Bibasilar atelectasis and upper lobe atelectasis. 20. Left base pleural calcification. 21. Cardiomegaly 22. Mediastinal lymphadenopathy. 23. Osteopenia. 24. Degenerative joint disease of the spine. 25. Left gynecomastia. 26. Bilateral airspace disease. 27. Anasarca. 28. Possible fatty liver and hepatic echogenicity with elevated hepatomegaly. 29. Increased gallbladder wall thickness. 30. Bilateral renal cyst. 31. Insulin-requiring diabetes mellitus. 32. Dementia. 33. History of hypocalcemia. 34. Hypovitaminosis D. 35. Urinary retention with prostatic hypertrophy. 35. Constipation. 36. Dementia. 1. Questionable and possible sepsis with fever and bibasilar pneumonia, atelectasis and possible pleural effusion. 2. Healthcare-associated bibasilar pneumonia. 3. Uncontrolled hypertension. 4. Questionable anasarca. 5. Scrotal and penile edema. 6. Bilateral lower extremity venous stasis. 7. Transient hypoxemia. 8. Anemia. 9. Status post packed red blood cell transfusion x1. 10. Hypokalemia. 11. Prerenal kidney injury. 12. Transaminitis. 13. Questionable urinary tract infection with proteinuria, pyuria, bacteriuria, hematuria. 14. Bifascicular block with right bundle-branch block, left anterior hemiblock. 15. Dementia. 16. Vision impairment versus questionable diabetic retinopathy. 17. Insulin-requiring diabetes mellitus. 18. Hypovitaminosis D. 19. Gait dysfunction. 20. Obesity with elevated body mass index of 36.5. 21. History of dementia. 22. Prostatic hypertrophy with history of elevated prostate-specific antigen. 23. History of urinary retention and hydronephrosis. 24. History of constipation. PLAN: At this time, the patient has been ordered serial labs. The patient is referred for discharge planning. CONSULTATION: 1. Nephrology. 2. Infectious disease. 3. Neurology. 4. Urology. 5. Surgery. CURRENT MEDICATIONS: Aricept 10 mg at bedtime, clonidine 0.1 mg q.6 hours p.r.n., Colace 100 mg three times a day, doxycycline 100 mg p.o. q.12, Drisdol 50,000 units weekly, Ecotrin 81 mg daily, Flomax 0.4 mg daily, folic acid 1 mg daily, Humalog low-dose sliding scale coverage a.c. and at bedtime, Venofer 200 mg IV daily, Lasix 40 mg IV q.12, Lopressor 50 mg twice a day, Lotrisone cream to the affected area, Lovenox 40 mg subcu daily, meropenem 500 IV q.8. MiraLax 17 g twice a day, Pepcid 20 mg daily, Pro-Stat 15 g twice a day, Risperdal 1 mg daily, Santyl to the affected area of decubitus daily, Tylenol 650 q.6 p.r.n., vitamin D3 of 2000 units daily. The patient seen by the nephrology, echo with Doppler ordered but the patient already had an echo in 03/2015. The patient is on consistent carbohydrate diet, out of bed to recliner. The patient has been ordered physical therapy, occupational therapy. Ambulation therapy ordered. As mentioned yesterday, I have spoken to the patient's daughter at length regarding severe patient's deconditioned state and multiple hormonal comorbidity. I have explained to the patient's daughter about the patient's overall declining condition secondary to the above multiple comorbidities. I have advised the patient's daughter that the patient most likely will require 24 hours care and supervision upon discharge. I have advised the patient's daughter to explore all the options including acute rehab, subacute rehab, long-term placement, and prison placement. All of the above was explained to the patient and the patient's daughter in layman's language. All questions concerned answered to their satisfaction. Dictated and electronically signed, not read. Eleizer Hanna MD MTDD
--- NOTE | 2017-05-21 13:02 | CP.PCM.PN ---
Subjective - Date & Time of Evaluation Date of Evaluation: 05/21/17 Time of Evaluation: 10:55 - Subjective Subjective: Comfortable, no fevers, not in distress. Objective - Vital Signs/Intake and Output Vital Signs (last 24 hours): Temp Pulse Resp BP Pulse Ox 97.8 F 68 20 179/88 H 96 05/21/17 09:25 05/21/17 09:25 05/21/17 09:25 05/21/17 09:25 05/21/17 09:25 Intake and Output: 05/21/17 05/21/17 06:59 18:59 Intake Total 860 0 Output Total 500 1350 Balance 360 -1350 - Medications Medications: Current Medications Acetaminophen (Tylenol 325mg Tab) 650 mg PO Q6H PRN PRN Reason: Fever >100.4 F Aspirin (Ecotrin) 81 mg PO DAILY [facility] Last Admin: 05/20/17 10:47 Dose: 81 mg Betamethasone/Clotrimazole (Lotrisone) 0 ml TOP BID [facility] Last Admin: 05/20/17 17:19 Dose: 1 applic Cholecalciferol (Vitamin D) 2,000 iu PO DAILY [facility] Last Admin: 05/20/17 18:45 Dose: 2,000 iu Clonidine HCl (Catapres) 0.1 mg PO Q6H PRN PRN Reason: .hypertension Last Admin: 05/21/17 06:03 Dose: 0.1 mg Collagenase (Santyl) 0 gm TOP DAILY [facility] Last Admin: 05/20/17 11:22 Dose: 1 applic Docusate Sodium (Colace) 100 mg PO TID [facility] Last Admin: 05/20/17 17:19 Dose: 100 mg Donepezil HCl (Aricept) 10 mg PO HS [facility] Last Admin: 05/20/17 22:00 Dose: 10 mg Doxycycline Hyclate (Doryx) 100 mg PO Q12 [facility] PRN Reason: Protocol Stop: 05/25/17 10:19 Last Admin: 05/20/17 22:00 Dose: 100 mg Enoxaparin Sodium (Lovenox) 40 mg SC DAILY [facility] PRN Reason: Protocol Last Admin: 05/20/17 10:47 Dose: 40 mg Ergocalciferol (Drisdol 50,000 Intl Units Cap) 1 cap PO Q7D [facility] Famotidine (Pepcid) 20 mg PO DAILY [facility] Last Admin: 05/20/17 10:48 Dose: 20 mg Folic Acid (Folic Acid) 1 mg PO DAILY [facility] Last Admin: 05/20/17 10:48 Dose: 1 mg Furosemide (Lasix) 40 mg IVP Q12 [facility] Last Admin: 05/20/17 22:00 Dose: 40 mg Meropenem 500 mg/ Sodium (Chloride) 100 mls @ 100 mls/hr IVPB Q8 [facility] PRN Reason: Protocol Stop: 05/25/17 14:01 Last Admin: 05/21/17 05:50 Dose: 100 mls/hr Iron Sucrose 200 mg/ Sodium (Chloride) 110 mls @ 110 mls/hr IVPB DAILY [facility] Stop: 05/22/17 10:59 Last Admin: 05/20/17 10:47 Dose: 110 mls/hr Insulin Human Lispro (Humalog Med) 0 units SC ACHS [facility] PRN Reason: Protocol Metoprolol Tartrate (Lopressor) 50 mg PO BID [facility] Last Admin: 05/20/17 17:18 Dose: Not Given Polyethylene Glycol (Miralax) 17 gm PO BID [facility] Last Admin: 05/20/17 17:19 Dose: 17 gm Risperidone (Risperdal Tab) 1 mg PO DAILY [facility] PRN Reason: Protocol Last Admin: 05/20/17 10:48 Dose: 1 mg Tamsulosin HCl (Flomax) 0.4 mg PO DAILY [facility] Last Admin: 05/20/17 10:49 Dose: 0.4 mg - Labs Labs: 05/21/17 06:39 05/21/17 06:39 PT 14.0 SECONDS (9.4-12.5) H 05/15/17 20:45 INR 1.28 (0.93-1.08) H 05/15/17 20:45 APTT 33.0 Seconds (25.1-36.5) 05/15/17 20:45 - Constitutional Appears: Non-toxic - Head Exam Head Exam: NORMAL INSPECTION - ENT Exam ENT Exam: Mucous Membranes Moist - Neck Exam Neck Exam: absent: Meningismus - Respiratory Exam Respiratory Exam: Decreased Breath Sounds - Cardiovascular Exam Cardiovascular Exam: +S1, +S2 - GI/Abdominal Exam GI & Abdominal Exam: Soft. absent: Tenderness Assessment and Plan - Assessment and Plan (Free Text) Plan: Assessment sepsis due to bilateral HCAP and UTI with ESBL-producing Klebsiella history of right hip femoral neck fracture S/P hemiarthroplasty DM HTN obesity with BMI 33 Plan continue Doxycycline and Merrem day 6 and will continue to monitor clinically - would complete 10 days of therapy
[2017-05-21] MEDS: Insulin Lispro (humaLOG) MEDIUM Coverage SC SCH ×2 (13:51→17:54)
[2017-05-21] MEDS ORDERED: Insulin Detemir 100 units/ml Vial (Levemir) SC SCH ×3 (17:00→22:00)
--- NOTE | 2017-05-21 18:29 | PN ---
DATE: 05/21/2017 SUBJECTIVE: The patient is seen lying in bed. He is awake, he is alert, he is comfortable. He denies any pain. He denies any shortness of breath. PHYSICAL EXAMINATION GENERAL: Elderly male lying in bed. VITAL SIGNS: Blood pressure 154/70, heart rate 68, respiratory rate 20, temperature 97.8. HEENT: Normocephalic, atraumatic. NECK: Supple, no JVD. LUNGS: Bilateral equal air entry, bilateral equal expansion. CARDIAC: S1 and S2, regular rate and rhythm, no murmur, no rub. ABDOMEN: Obese, distended, soft, nontender, bowel sounds present. EXTREMITIES: Dressing of the lower extremities. Tesfaye bandage at the right upper extremity. INTAKE AND OUTPUT: 1794/3100. LABORATORY DATA: WBC 8, hemoglobin 10.6, hematocrit 33, platelets 296. Sodium 139, potassium 4.0, chloride 100, CO2 of 33, BUN 35, creatinine 1.0, glucose 217. Uric acid 5.6. Calcium 8.3, phosphorus 3.3, magnesium 1.8. AST 58, ALT 97, albumin 2.8. CURRENT MEDICATIONS: Aricept, Catapres, Colace, doxycycline, Drisdol, Ecotrin, Flomax, folic acid, iron, Lasix 40 IV q. 12, Levemir, Lopressor, Lotrisone, Lovenox, meropenem, MiraLax, Pepcid, Risperdal, Santyl. ASSESSMENT: 1. Acute kidney injury superimposed on chronic kidney disease stage II, resolved acute kidney injury. 2. Severe congestive heart failure, pulmonary edema, bilateral pleural effusions. 3. Hypertension. 4. Cellulitis. 5. Non-insulin dependent diabetes mellitus. PLAN: 1. Continue Lasix 40 IV q. 12. 2. Keep O's greater than I's. 3. Monitor daily electrolytes. 4. Continue antibiotics for cellulitis. 5. Follow up right upper extremity Dopplers. 6. Monitor fingerstick and continue insulin coverage. 7. Physical therapy. Brunilda Argueta MD
--- NOTE | 2017-05-22 01:15 | DS ---
FINAL PROGRESS NOTE AND DISCHARGE SUMMARY HISTORY: The patient is finally discharged and accepted to subacute rehab at [facility] after the patient's daughter, Yue, agreed for discharge to subacute rehab after the patient was declined by acute rehab. The patient was seen in the morning hours before 12:00 noon. The patient was seen in room #375 bed #1. PHYSICAL EXAMINATION: GENERAL: The patient is seen lying in the bed. The patient is alert, awake, responsive. The patient does not appear to be in any distress. VITAL SIGNS: T-max 99.5; pulse 68; blood pressure 154/70, 170/88; respiration 18 to 20; O2 sat is 99% to 98%. HEAD EXAMINATION: Normocephalic and atraumatic. HEENT examination shows pinkish pale conjunctivae. Anicteric sclerae. Decreased vision. No oropharyngeal lesion. NECK: No neck rigidity. CHEST EXAMINATION: Kyphosis. LUNGS EXAMINATION: Shows decreased breath sound at the bases. Positive fine rales noted. Occasional rhonchi. CARDIOVASCULAR EXAMINATION: S1 and S2, regular rhythm. Questionable positive systolic murmur at right second intercostal space, left sternal border and left second intercostal space. ABDOMEN: Protuberant, distended, obese. Positive bowel sounds. GENITALIA: Male. RECTAL EXAMINATION: Deferred. EXTREMITIES: Show decreasing pitting edema of the lower extremity. There is some swelling of the upper extremity with Tesfaye wraps present. PSYCHIATRIC EXAMINATION: Negative for auditory or visual hallucination. Negative for anxiety or depression. Positive for dementia. NEUROLOGIC: Gait examination could not be tested as the patient is bedridden. The patient's body mass index is elevated at greater than 36. DIAGNOSTICS: May 21. WBC 8.0, hemoglobin/hematocrit 10.6/33 and platelet 296. 2. Sodium 139, potassium 4.0, chloride 100, CO2 of 33, anion gap 35, BUN 35, creatinine 1.0 and GFR 25. 3. Fingerstick blood sugar was elevated. The patient's fingerstick blood sugar has been in high 200s to mid 200s. The patient's LFTs are elevated. Urine cultures are showing extended-spectrum beta-lactamase Klebsiella pneumoniae urinary tract infection. The patient was seen by infectious disease and nephrology, their recommendations noted. As mentioned, the patient is finally accepted to [facility] after Yue agreeing for discharge to [facility]. The patient was declined by acute rehab which was notified to the patient's daughter. The patient's daughter was informed that the patient has been approved for long-term placement and skilled nursing placement. FINAL IMPRESSION, PLAN AND DISCHARGE DIAGNOSES: 1. Extended-spectrum beta-lactamase Klebsiella pneumoniae urinary tract infection. 2. Severe anemia. 3. Sepsis. 4. Bilateral healthcare-associated pneumonia and pleural effusion and atelectasis. 5. Severe deconditioning and gait dysfunction. 6. Morbid obesity. 7. Uncontrolled insulin-requiring diabetes mellitus with hyperglycemia. 8. Hypertension. 9. Normocytic anemia. 10. Chronic kidney disease, stage II/III. 11. Transaminitis. 12. Tachycardia. 13. Dementia. 14. Constipation. 15. Hypovitaminosis D. 16. Prostatic hypertrophy with urinary retention and obstructive uropathy. 17. Iron-deficiency anemia. 18. Ifebc-[id number] recurrent right-sided diastolic congestive heart failure with elevated right ventricular systolic pressure and tricuspid regurgitation and bilateral upper and lower extremity venous stasis. 19. Volume overload. 20. Low-grade fever. 21. Status post packed red blood cell transfusion. 1. Sepsis due to bilateral multilobar healthcare-associated pneumonia. 2. Extended-spectrum beta-lactamase Klebsiella urinary tract infection with trace proteinuria, hematuria, pyuria, bacteriuria. 3. Hypertension. 4. Bilateral upper and lower extremity venous stasis (resolving). 5. Volume and fluid overload with anasarca. 6. Chronic kidney disease, stage II/III. 7. Sacral decubitus ulceration. 8. Dementia. 9. Possible functional quadriplegia with bedridden status and severe deconditioning and gait dysfunction. 10. Left ventricular ejection fraction of 59%. 11. Pulmonary arterial hypertension with right ventricular systolic pressure of 55 mmHg and concentric left ventricular hypertrophy and grade 1 abnormal relaxation pattern. 12. Mild aortic regurgitation. 13. Mildly thickened mitral valve. 14. Moderate tricuspid regurgitation. 15. Acute recurrent right-sided diastolic congestive heart failure. 16. Unstageable sacral decubitus ulceration. 17. Normocytic anemia, status post packed red blood cell transfusion x2. 18. Granulocytosis. 19. Hyperglycemia and uncontrolled insulin-requiring diabetes mellitus with hemoglobin A1c of 7.6. 20. Transaminitis, etiology undetermined. 21. Iron-deficiency anemia. 22. Mild hypoalbuminemia. 23. Severe gait dysfunction and deconditioning and bedridden status and functional quadriplegia. 24. Hypovitaminosis D. 25. Hyperkalemia. 26. Constipation. 27. Prostatic hypertrophy with obstructive uropathy and urinary retention. 1. Sepsis. 2. Multilobar bilateral healthcare-associated pneumonia. 3. Extended spectrum beta-lactamase Klebsiella pneumoniae urinary tract infection. 4. Fever. 5. Hypertension. 6. Impaired vision, probably secondary to diabetic retinopathy and vision impairment. 7. Normocytic anemia. 8. Status post packed red blood cell transfusion x2. 9. Insulin-requiring diabetes mellitus with hemoglobin A1c of 7.1. 10. Transaminitis, etiology undetermined. 11. Sacral decubitus unstageable ulceration. 12. Severe gait dysfunction and deconditioning. 13. Morbid obesity with elevated body mass index of almost 37. 14. Dementia. 15. Constipation. 16. Hypovitaminosis D. 17. Prostatic hypertrophy with obstructive uropathy and urinary retention. 18. Bilateral upper and lower extremity venostasis and volume overload. 19. Bilateral pleural effusion, atelectasis, and pneumonia. 1. Transient episodic confusion and encephalopathy. 2. Extended spectrum beta-lactamase Klebsiella pneumoniae urinary tract infection. 3. Hypertension. 4. Bilateral upper and lower extremity venostasis. 5. Anasarca. 6. Volume overload. 7. Normocytic anemia. 8. Granulocytosis. 9. Status post packed red blood cell transfusion. 10. Insulin-requiring diabetes mellitus with hemoglobin A1c of 7.6. 11. Prerenal kidney injury. 12. Transaminitis. 13. Elevated prostate-specific antigen of 7.9 and 9.1. 14. Hypovitaminosis D. 15. Mild hypoalbuminemia. 16. Extended spectrum beta-lactamase Klebsiella pneumoniae and Gram-negative tejal urinary tract infection with proteinuria, hematuria, pyuria, bacteriuria. 17. Severe gait dysfunction and deconditioning. 18. Status post packed red blood cell transfusion. 19. Bifascicular block with incomplete right bundle-branch block and left anterior hemiblock. 20. Morbid obesity. 21. Status post altered mental status, transient confusion, and encephalopathy. 22. Acute exacerbation of dementia. 23. Sepsis due to bilateral healthcare-associated pneumonia, urinary tract infection, and extended spectrum beta-lactamase Klebsiella pneumoniae urinary tract infection. 24. Gait dysfunction. 25. Dementia. 26. Constipation. 27. Prostatic hypertrophy, history of urinary retention, history of possible obstructive uropathy. 28. Hypertension. 1. Altered mental status versus toxic metabolic encephalopathy versus acute exacerbation of dementia. 2. Unstable sacral decubitus ulceration. 3. Hypertension. 4. Anasarca and venous stasis of the lower extremity with scrotal edema. 5. Severe gait dysfunction and deconditioning. 6. Moderate obesity with elevated body mass index of greater than 36. 7. Anemia. 8. Status post packed red blood cell transfusion. 9. Prerenal kidney injury. 10. 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 11. Hypertension. 12. Transaminitis. 14. Hypertension. 15. Elevated prostate-specific antigen of 9.1 and 7.9. 16. Gram-negative tejal urinary tract infection. 17. Status post packed red blood cells transfusion x2. 18. Bilateral large pleural effusion. 19. Bibasilar atelectasis and upper lobe atelectasis. 20. Left base pleural calcification. 21. Cardiomegaly 22. Mediastinal lymphadenopathy. 23. Osteopenia. 24. Degenerative joint disease of the spine. 25. Left gynecomastia. 26. Bilateral airspace disease. 27. Anasarca. 28. Possible fatty liver and hepatic echogenicity with elevated hepatomegaly. 29. Increased gallbladder wall thickness. 30. Bilateral renal cyst. 31. Insulin-requiring diabetes mellitus. 32. Dementia. 33. History of hypocalcemia. 34. Hypovitaminosis D. 35. Urinary retention with prostatic hypertrophy. 35. Constipation. 36. Dementia. 1. Questionable and possible sepsis with fever and bibasilar pneumonia, atelectasis and possible pleural effusion. 2. Healthcare-associated bibasilar pneumonia. 3. Uncontrolled hypertension. 4. Questionable anasarca. 5. Scrotal and penile edema. 6. Bilateral lower extremity venous stasis. 7. Transient hypoxemia. 8. Anemia. 9. Status post packed red blood cell transfusion x1. 10. Hypokalemia. 11. Prerenal kidney injury. 12. Transaminitis. 13. Questionable urinary tract infection with proteinuria, pyuria, bacteriuria, hematuria. 14. Bifascicular block with right bundle-branch block, left anterior hemiblock. 15. Dementia. 16. Vision impairment versus questionable diabetic retinopathy. 17. Insulin-requiring diabetes mellitus. 18. Hypovitaminosis D. 19. Gait dysfunction. 20. Obesity with elevated body mass index of 36.5. 21. History of dementia. 22. Prostatic hypertrophy with history of elevated prostate-specific antigen. 23. History of urinary retention and hydronephrosis. 24. History of constipation. PLAN: At this time, the patient is to be discharge to subacute rehab at [facility] after the patient's family's agreement. DISCHARGE MEDICATIONS: 1. Aricept 10 mg at bedtime. 2. Clonidine 0.1 mg q. 6 hours p.r.n. for systolic blood pressure greater than or equal to 170 and diastolic blood pressure greater than or equal to 100. 3. Colace 100 mg three times a day. 4. Doxycycline 100 mg p.o. q. 12. 5. Drisdol 50,000 units weekly. 6. Ecotrin 81 mg daily. 7. Flomax 0.4 mg p.o. daily. 8. Folic acid 1 mg daily. 9. Humalog medium dose sliding scale coverage. 10. The patient completed IV Venofer 200 mg x3 doses. 11. Lasix 40 mg IV q. 12. 12. Levemir 10 units a.c. breakfast and dinner. 13. Lopressor 50 mg twice a day. 14. Lotrisone cream. 15. Lovenox 40 mg subQ daily. 16. Meropenem 500 mg IV q. 8 hours for 7 more days. 17. MiraLax 17 g twice a day. 18. Pepcid 20 mg daily. 19. Risperdal 1 mg daily. 20. Santyl to affected area of decubitus daily. 21. Tylenol 650 q. 6 p.r.n. for temperature greater than or equal to 99.5. 22. Vitamin D3 of 2000 International Units daily. The patient will be discharged to [facility]. The patient's discharge disposition was discussed at length multiple times with case management and licensed master social worker and the patient's daughter, Yue and as discussed above, the patient was finally accepted to subacute rehab at [facility] and the patient is discharge to subacute rehab at [facility] under Dr. Hanna. Time spent in the entire discharge process is more than 45 minutes. Eliezer Hanna MD [facility] # [id number] [place]
[2017-05-22] MEDS ORDERED: Ergocalciferol 50,000 Intl Units Cap PO SCH (10:00)
== END 2017-05-21 21:06 | DRG 871 ==
LOC: ED 19:51 → ERH 23:04 → 3RSO 05-16 01:36
PROVIDERS: ADMIT Internal Medicine; ATTEND Internal Medicine
PROC: 30233N1 Transfusion of Nonautologous Red Blood Cells into Peripheral Vein, Percutaneous Approach (ICD-10-PCS; principal; 2017-05-16)
DX: A41.9 Sepsis, unspecified organism (principal); J18.9 Pneumonia, unspecified organism; I50.43 Acute on chronic combined systolic (congestive) and diastolic (congestive) heart failure; G93.40 Encephalopathy, unspecified; L89.153 Pressure ulcer of sacral region, stage 3; N17.9 Acute kidney failure, unspecified; I13.0 Hypertensive heart and chronic kidney disease with heart failure and stage 1 through stage 4 chronic kidney disease, or unspecified chronic kidney disease; R53.2 Functional quadriplegia; N39.0 Urinary tract infection, site not specified; J98.11 Atelectasis; I45.2 Bifascicular block; L03.90 Cellulitis, unspecified; N13.8 Other obstructive and reflux uropathy; N40.1 Benign prostatic hyperplasia with lower urinary tract symptoms; R33.8 Other retention of urine; E83.51 Hypocalcemia; F03.90 Unspecified dementia, unspecified severity, without behavioral disturbance, psychotic disturbance, mood disturbance, and anxiety; I07.1 Rheumatic tricuspid insufficiency; E11.22 Type 2 diabetes mellitus with diabetic chronic kidney disease; E11.65 Type 2 diabetes mellitus with hyperglycemia; N18.3 Chronic kidney disease, stage 3 (moderate); B96.1 Klebsiella pneumoniae [K. pneumoniae] as the cause of diseases classified elsewhere; D50.9 Iron deficiency anemia, unspecified; E55.9 Vitamin D deficiency, unspecified; I87.8 Other specified disorders of veins; E66.01 Morbid (severe) obesity due to excess calories; I45.10 Unspecified right bundle-branch block; R59.0 Localized enlarged lymph nodes; M47.9 Spondylosis, unspecified; N62 Hypertrophy of breast; K59.00 Constipation, unspecified; N28.1 Cyst of kidney, acquired; E87.5 Hyperkalemia; Z16.12 Extended spectrum beta lactamase (ESBL) resistance; E11.319 Type 2 diabetes mellitus with unspecified diabetic retinopathy without macular edema; Y95 Nosocomial condition; R26.9 Unspecified abnormalities of gait and mobility; Z68.36 Body mass index [BMI] 36.0-36.9, adult; H54.7 Unspecified visual loss; I27.21 Secondary pulmonary arterial hypertension; E78.00 Pure hypercholesterolemia, unspecified; Z79.4 Long term (current) use of insulin; Z79.82 Long term (current) use of aspirin

== ENCOUNTER 2017-06-26 06:18 | Day surgery (SDC) | payer MEDICARE, OTHER ==
[2017-06-24 07:23] VITALS: BMI 34.9
[2017-06-26] MEDS ORDERED: Propofol 10 mg/ml Inj (20 ML) ONE (07:38)
[2017-06-26] MEDS ORDERED: Morphine 2 mg/ml ISec IVP PRN (08:34)
[2017-06-26 08:38] VITALS: TEMP 97.6
[2017-06-26] MEDS ORDERED: Morphine 2 mg/ml ISec ONE (08:49)
[2017-06-26] MEDS ORDERED: Morphine 2 mg/ml ISec IVP ONE (08:55)
[2017-06-26 10:06] VITALS: O2SAT 96
--- NOTE | 2017-06-26 10:12 | RAD ---
PROCEDURE: Fluoroscopy up to 1 hour HISTORY: RIGHT HIP CLOSED REDUCTION COMPARISON: TECHNIQUE: Fluoroscopy was provided in the operating room. 77 seconds of fluoro time were use. 9 images were submitted FINDINGS: The study shows placement of a right hip prosthesis. There is anatomic alignment IMPRESSION: As above
--- NOTE | 2017-06-26 10:26 | RAD ---
PROCEDURE: Radiographs of the pelvis. HISTORY: post op COMPARISON: None. FINDINGS: BONES: The pelvic ring is intact. There is diffuse bone demineralization. There is no acute fracture or bone destruction. JOINTS: Status post total noncemented right hip arthroplasty. The left hip joint space is preserved. OTHER FINDINGS: There is right periarticular soft tissue swelling and soft tissue emphysema in keeping with postsurgical changes. Lateral skin jo are identified. IMPRESSION: Status post non cemented total right hip arthroplasty. No acute complications.
[2017-06-26 10:29] VITALS: BP 125/77; PULSE 88; RESP 18
--- NOTE | 2017-06-26 11:15 | OP ---
PROCEDURE DATE: 06/26/2017 PREOPERATIVE DIAGNOSIS: Right hip dislocation, status post right hip hemiarthroplasty. POSTOPERATIVE DIAGNOSIS: Right hip dislocation, status post right hip hemiarthroplasty. PROCEDURE: Closed reduction of right hip dislocation. SURGEON: Fred Barron MD ANESTHESIA: Sedation. COMPLICATIONS: None. ESTIMATED BLOOD LOSS: 0 INDICATIONS FOR PROCEDURE: This is a 76-year-old gentleman with some dementia who approximately 2-1/2 months ago underwent a right hip hemiarthroplasty. Patient subsequently was discharged to a rehab facility and approximately 2 to 3 weeks ago was found to have a dislocated right hip. On clinical examination, the right hip was significantly flexed and adducted rather. Radiographically, patient was noted to have a posterior hip dislocation. At this point, a lengthy discussion was had with the patient's daughter, and she opted for him to undergo a closed reduction. I explained to her at length due to the length of the time between the dislocation and possible closed reduction that a closed reduction may not be possible and also revision surgery may be warranted. Due to the patient's limited ambulatory status and mental status, she opted to decline any open surgery. Subsequently, the risks and benefits were discussed including possible periprosthetic fracture and informed consent was obtained from his daughter Yue. DESCRIPTION OF PROCEDURE: Once the patient was placed on the operating table, anesthesia was administered. At this point, the C-arm image intensifier was brought in and again right hip prosthesis was noted to be dislocated posteriorly and significantly shortened. At this point, by applying steady traction and hip in flexion, length was restored and hip was reduced. Using a C-arm, pelvis confirmed the hip was reduced and a frog lateral was taken which again confirmed that the hip was reduced. At this point, knee immobilizer and hip abduction brace was placed and additional x-ray was taken with the knee immobilizer on again confirming that the hip was reduced. Clinically, right lower extremity appeared to be altered length and with slightly externally rotated. Patient was awakened and taken to recovery room in stable condition. Fred Barron MD
--- NOTE | 2017-06-26 12:53 | OP ---
PROCEDURE DATE: 06/26/2017 ADDENDUM This is an addendum to the previously dictated operative report prior to taking to the patient off the operating room table. C-arm images of the right femur were taken, which confirmed there was no periprosthetic fracture. Fred Barron MD
== END 2017-06-26 11:40 ==
LOC: SDS 06:18
PROVIDERS: ATTEND Orthopaedic Surgery
DX: S73.014A Posterior dislocation of right hip, initial encounter (principal); I10 Essential (primary) hypertension; F03.90 Unspecified dementia, unspecified severity, without behavioral disturbance, psychotic disturbance, mood disturbance, and anxiety
CPT/HCPCS: 27266; 72170; 76000; 82948; J2270; J2405; J2704

== ENCOUNTER 2017-09-05 17:42 | Inpatient (IN) | payer MEDICARE, OTHER ==
[2017-09-05 17:43] VITALS: BMI 34.9
--- NOTE | 2017-09-05 18:08 | ED PDOC ---
Arrival/HPI - General Time Seen by Provider: 09/05/17 17:58 Historian: Patient EM Caveat: Other (Unresponsive) - History of Present Illness Narrative History of Present Illness (Text): 09/05/17 18:06 76 year old male, with past medical history of hypertension, seizure, diabetes, unspecified dementia without behavioral disturbance, schizophrenia, UTI and dysphagia, was sent to the Emergency department by [facility] for evaluation of fever and change in responsiveness prior to arrival. As per fdc documentation, patient had an elevated temperature of 101.3 and was only responsive to tactile stimulus. At bed side, patient appears to be unresponsive consistent with his baseline. Patient history limited due to unresponsiveness Time/Duration: 1-3 hours Symptom Onset: Gradual Symptom Course: Unchanged Activities at Onset: Light Context: Other (intermediate) Past Medical History - Provider Review Nursing Documentation Reviewed: Yes - Infectious Disease Hx of Infectious Diseases: None - Tetanus Immunization Tetanus Immunization: Unknown - Cardiac Hx Pacemaker: No - Pulmonary Hx Respiratory Disorders: No - Neurological Hx Paralysis: No - HEENT Hx HEENT Disorder: No - Renal Hx Renal Disorder: No - Endocrine/Metabolic Hx Diabetes Mellitus Type 2: Yes - Hematological/Oncological Hx Blood Transfusions: Yes (05/16/2017) Hx Blood Transfusion Reaction: No - Integumentary Hx Dermatological Disorder: No - Musculoskeletal/Rheumatological Hx Musculoskeletal Disorders: Yes - Gastrointestinal Hx Gastrointestinal Disorders: No - Genitourinary/Gynecological Hx Genitourinary Disorders: No - Psychiatric Hx Emotional Abuse: No Hx Physical Abuse: No Hx Substance Use: No - Anesthesia Hx Anesthesia Reactions: No Hx Malignant Hyperthermia: No - Suicidal Assessment Feels Threatened In Home Enviroment: No Family/Social History - Physician Review Nursing Documentation Reviewed: Yes Family/Social History: No Known Family HX Smoking Status: Never Smoked Hx Alcohol Use: No Hx Substance Use: No Allergies/Home Meds Allergies/Adverse Reactions: Allergies No Known Allergies Allergy (Verified 05/15/17 19:57) Home Medications: Home Meds Medication Instructions Recorded Confirmed Amino Acids/Protein Hydrolys 30 ml PO BID 05/01/17 09/05/17 [Pro-Stat Profile 887 ml] Aspirin [Adult Low Dose Aspirin EC] 81 mg PO DAILY 05/01/17 09/05/17 Cholecalciferol (Vitamin D3) 50,000 unit PO MON 10/06/17 02/10/18 [Vitamin D3] Donepezil [Aricept] 5 mg PO HS 05/01/17 09/05/17 Famotidine [Pepcid] 20 mg PO DAILY 05/01/17 09/05/17 Folic Acid 1 mg PO DAILY 05/01/17 09/05/17 Insulin Lispro [humALOG] 1 - 10 unit SQ ACTID 05/01/17 09/05/17 Metoprolol Tartrate [Lopressor] 50 mg PO BID 05/01/17 09/05/17 Polyethylene Glycol 3350 [Miralax] 17 gm PO DAILY 05/01/17 09/05/17 Tamsulosin HCl [Flomax] 0.4 mg PO DAILY 05/01/17 09/05/17 Furosemide [Lasix] 40 mg IV Q12H 06/24/17 09/05/17 Insulin Detemir [Levemir] 10 unit SC BID 06/24/17 09/05/17 Risperidone [Risperdal] 1 mg PO DAILY 06/24/17 09/05/17 Docusate Sodium [Colace] 200 mg PO QPM 09/05/17 09/05/17 Review of Systems - Physician Review All systems were reviewed & negative as marked: Yes - Review of Systems Systems not reviewed;Unavailable: Other (Unresponsive) Constitutional: Fevers Skin: Normal Neurological: Other (Unresponsive) Physical Exam Vital Signs Reviewed: Yes Vital Signs Temp Pulse Resp BP Pulse Ox 09/05/17 19:43 99.9 F H 85 20 114/58 L 100 09/05/17 17:43 103.2 F H 112 H 20 141/49 L 100 Temperature: Febrile Blood Pressure: Hypotensive Pulse: Tachycardic Respiratory Rate: Normal Appearance: Positive for: Other (unresponsive) Pain Distress: None Mental Status: Positive for: other (unresponsive) - Systems Exam Head: Present: Atraumatic, Normocephalic Pupils: Present: PERRL Extroacular Muscles: Present: EOMI Conjunctiva: Present: Normal Mouth: Present: Other (pink and moderately dehydrated) Neck: Present: Normal Range of Motion Respiratory/Chest: Present: Clear to Auscultation, Good Air Exchange. No: Respiratory Distress, Accessory Muscle Use Cardiovascular: Present: Regular Rate and Rhythm, Normal S1, S2. No: Murmurs Abdomen: Present: Normal Bowel Sounds. No: Tenderness, Distention, Peritoneal Signs Back: Present: Normal Inspection Upper Extremity: Present: Normal Inspection. No: Cyanosis, Edema Lower Extremity: Present: Other (a fixation device stabilizing the right hip and femur.). No: Edema Neurological: Present: Other (Does not follow commands. No acute neurological deficits.) Skin: Present: Warm, Dry, Normal Color. No: Rashes Psychiatric: Present: Normal Concentration, Other (Unresponsive) Medical Decision Making ED Course and Treatment: 09/05/17 18:24 Impression: 76 year old male presents to the Emergency department for fever and change in responsiveness than baseline. Plan: -- VBG -- EKG -- Labs -- Chest X-ray -- Tylenol -- IV Fluids -- Blood Culture -- Urine Culture -- Right Hip X-ray -- Influenza A/B stat -- Urinalysis -- Reassess and disposition Progress Notes: 09/05/17 18:40 Stool appear dark brown but heme negative. 09/05/17 18:45 Chest X-ray reviewed, shows no acute processes. - Lab Interpretations Lab Results: 09/05/17 18:00 09/05/17 18:00 Lab Results 09/05/17 19:00: Blood Type B NEGATIVE, Antibody Screen Negative, Crossmatch See Detail, BBK History Checked Patient has bt 09/05/17 18:15: Influenza Typ A,B (EIA) Negative for flu a/b 09/05/17 18:00: Sodium 137, Chloride 100, Potassium 3.9, Carbon Dioxide 28, Anion Gap 13, BUN 65 H, Creatinine 2.9 H, Est GFR ( Amer) 26, Est GFR ( Non-Af Amer) 21, Random Glucose 67 L, Calcium 8.3 L, Phosphorus 4.0, Magnesium 2.4 H, Total Bilirubin 0.9, AST 97 H D, ALT 54, Alkaline Phosphatase 209 H, Total Protein 6.5, Albumin 2.6 L, Globulin 3.9, Albumin/Globulin Ratio 0.7 L 09/05/17 18:00: pO2 49, VBG pH 7.47 H, VBG pCO2 40.0, VBG HCO3 29.1 H, VBG Total CO2 30.3 H, VBG O2 Sat (Calc) 93.9 H, VBG Base Excess 5.0 H, VBG Potassium 3.9, Sodium 135.0, Chloride 104.0, Glucose 70 L, Lactate 1.5, FiO2 21.0, Venous Blood Potassium 3.9 09/05/17 18:00: Urine Color Yellow, Urine Appearance Cloudy, Urine pH 6.5, Ur Specific [place] 1.025, Urine Protein 100 H, Urine Glucose (UA) Negative, Urine Ketones Trace H, Urine Blood Large H, Urine Nitrate Negative, Urine Bilirubin Negative, Urine Urobilinogen 1.0 H, Ur Leukocyte Esterase Large H, Urine RBC Tntc, Urine WBC Tntc, Ur Epithelial Cells 1 - 3, Amorphous Sediment Small, Urine Bacteria Many 09/05/17 18:00: PT 21.3 H, INR 1.85 H, APTT 29.4 09/05/17 18:00: WBC 20.0 H D, RBC 2.45 L, Hgb 7.2 L D, Hct 22.4 L, MCV 91.4 D, MCH 29.4, MCHC 32.1, RDW 16.0 H, Plt Count 368, MPV 8.9, Gran % 91.3 H, Lymph % (Auto) 4.2 L, Whitman % (Auto) 4.4, Eos % (Auto) 0.0 L, Baso % (Auto) 0.1, Gran # 18.28 H, Lymph # (Auto) 0.8 L, Whitman # (Auto) 0.9 H, Eos # (Auto) 0.0, Baso # ( Auto) 0.01, Neutrophils % (Manual) 84 H, Band Neutrophils % 4 H, Lymphocytes % ( Manual) 8 L, Monocytes % (Manual) 4, Platelet Evaluation Normal, Hypochromasia 1 +, Anisocytosis (manual) 1+ - RAD Interpretation Radiology Orders: 09/05/17 18:02 CHEST PORTABLE [RAD] Stat 09/05/17 18:04 HIP RIGHT 1 VIEW (OR ONLY) [RAD] Stat - Medication Orders Current Medication Orders: Acetaminophen (Tylenol 325 Mg Supp) 975 mg RI ONCE PRN PRN Reason: Fever >100.4 F Last Admin: 09/05/17 18:44 Dose: 975 mg Vancomycin HCl (Vancomycin 1gm) 1 gm in 250 mls @ 166.667 mls/hr IVPB STAT STA Stop: 09/05/17 21:47 Discontinued Medications Sodium Chloride (Sodium Chloride 0.9%) 3,200 mls @ 999 mls/hr IV .Q3H13M STA Stop: 09/05/17 21:17 Last Admin: 09/05/17 18:43 Dose: 999 mls/hr eMAR Start Stop Document 09/05/17 18:43 SRE (Rec: 09/05/17 18:44 SRE [id number]) Intravenous Solution Start Date 09/05/17 Start Time 18:44 End Date 09/05/17 End time 19:45 Total Infusion Time 61 Cefepime HCl (Maxipime 1gm) 1 gm in 100 mls @ 100 mls/hr IVPB STAT STA PRN Reason: Protocol Stop: 09/05/17 21:09 Last Admin: 09/05/17 20:56 Dose: 100 mls/hr eMAR Start Stop Document 09/05/17 20:56 AB (Rec: 09/05/17 20:56 AB [facility] [id number]) Intravenous Solution Start Date 09/05/17 Start Time 20:56 End Date 09/05/17 End time 21:56 Total Infusion Time 60 Famotidine (Pepcid 20mg/50ml Premix) 20 mg in 50 mls @ 100 mls/hr IVPB STAT STA Stop: 09/05/17 21:15 - Scribe Statement The provider has reviewed the documentation as recorded by the Scribe Joleen Brody. All medical record entries made by the Scribe were at my direction and personally dictated by me. I have reviewed the chart and agree that the record accurately reflects my personal performance of the history, physical exam, medical decision making, and the department course for this patient. I have also personally directed, reviewed, and agree with the discharge instructions and disposition. Disposition/Present on Arrival - Present on Arrival Any Indicators Present on Arrival: No History of DVT/PE: No History of Uncontrolled Diabetes: No Urinary Catheter: No History Surgical Site Infection Following: None - Disposition Have Diagnosis and Disposition been Completed?: Yes Diagnosis: UTI (urinary tract infection), Hip fracture, Decubital ulcer Disposition: HOSPITALIZED Disposition Time: 21:00 Patient Plan: Admission Condition: STABLE
[2017-09-05 18:51] LABS: BASO # 0.01 K/mm3 (0.0-2.0); BASO % 0.1 % (0.0-3.0); GRAN # 18.28 (1.4-6.5); GRAN % 91.3 % (50.0-68.0); LYMPH # 0.8 (1.2-3.4); LYMPH % 4.2 % (22.0-35.0); MEAN CELL VOLUME 91.4 fl (80.0-105.0); MEAN CORPUSCULAR HEMOGLOBIN 29.4 pg (25.0-35.0); MEAN CORPUSCULAR HGB CONC 32.1 g/dl (31.0-37.0); MEAN PLATELET VOLUME 8.9 fl (7.0-11.0); MONO # 0.9 (0.1-0.6); MONO % 4.4 % (1.0-6.0); PLATELET COUNT 368 10^3/uL (120.0-450.0); RBC 2.45 10^6/uL (3.5-6.1)
[2017-09-05 18:54] LABS: HEMOGLOBIN 7.2 g/dL (14.0-18.0)
[2017-09-05 18:58] LABS: PH,URINE 6.5 (4.7-8.0); URINE BILIRUBIN NEGATIVE (NEGATIVE); URINE BLOOD LARGE (NEGATIVE); URINE GLUCOSE (UA) NEGATIVE (NEGATIVE); URINE LEUKOCYTE ESTERASE LARGE Leu/uL (NEGATIVE); URINE NITRATE NEGATIVE (NEGATIVE); URINE PROTEIN 100 mg/dL (<30 mg/dL)
[2017-09-05 19:00] LABS: URINE APPEARANCE CLOUDY (CLEAR); URINE COLOR YELLOW (YELLOW)
[2017-09-05 19:05] LABS: VENOUS BLOOD GAS PO2 49 mm/Hg (30-55); VENOUS BLOOD PH 7.47 (7.32-7.43)
[2017-09-05 19:06] LABS: URINE BACTERIA MANY (NEG); URINE RBC TNTC /hpf (0-2); URINE WBC TNTC /hpf (0-6)
[2017-09-05 19:07] LABS: URINE AMORPHOUS SEDIMENT SMALL
[2017-09-05 19:08] LABS: INR 1.85 (0.93-1.08); PARTIAL THROMBOPLASTIN TIME 29.4 Seconds (25.1-36.5); PROTHROMBIN TIME 21.3 SECONDS (9.4-12.5)
[2017-09-05 19:16] LABS: ALB/GLOB RATIO 0.7 (1.1-1.8); ALBUMIN 2.6 g/dL (3.0-4.8); CALCIUM 8.3 mg/dL (8.4-10.5); MAGNESIUM 2.4 mg/dL (1.7-2.2)
[2017-09-05] MEDS ORDERED: Vancomycin 1 g Inj IVPB STA (20:09)
[2017-09-05] MEDS ORDERED: Cefepime 1gm in NS 100ml 1 GM/100 ML BAG IVPB STA (20:10)
[2017-09-05 20:13] LABS: BAND 4 % (0-2); LYMPHOCYTE 8 % (22.0-35.0); NEUTROPHIL 84 % (50.0-70.0)
[2017-09-05 20:14] LABS: ANISOCYTOSIS 1+; HYPOCHROMIA 1+; MONOCYTE 4 % (1.0-6.0); PLATELET ESTIMATE NORMAL (NORMAL)
[2017-09-05] MEDS ORDERED: Vancomycin 1gm in NS 250ml 1 GM/250 ML BAG IVPB STA (20:18)
[2017-09-05] MEDS ORDERED: Famotidine 20mg/50ml 20 MG/50 ML BAG IVPB STA (20:46)
[2017-09-05] MEDS ORDERED: Sodium Chloride 0.9% 1,000 ML IV SCH (22:15)
[2017-09-05] MEDS ORDERED: Dextrose 50% SYRINGE Inj (50 ml) ONE (22:36)
[2017-09-05] MEDS ORDERED: Dextrose 50% SYRINGE Inj (50 ml) IVP STA (22:42)
--- NOTE | 2017-09-05 23:13 | CP.PCM.HP ---
<CamHao - Last Filed: 09/06/17 00:07> History of Present Illness - History of Present Illness History of Present Illness: Hao Levy PGY1 IM H&P Note for Dr. Hanna Service CC: AMS and fever from fdc Mr. Tadeo is a 76 yo male with PMH of DM2, HTN, unspecified dementia, vision loss, UTI's and dysphagia who presents to ED from [facility] for evaluation of fever and change in responsiveness. Per ER note, fdc documentation documented that "patient had an elevated temperature of 101.3 and was only responsive to tactile stimulus." Son is bedside and he states that earlier, the patient was up and requesting a drink, but that the patient's unresponsiveness now is not at his baseline. The son states ROS was limited due to patient's mental state. Information below was obtained from son and chart review. 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 (04/2017) due to dislocation but is now dislocated again Meds: as per MAR Allergies: NKDA SHx: denied tobacco/etoh/drug use, from fdc ([facility]) Present on Admission - Present on Admission Any Indicators Present on Admission: No Review of Systems - Review of Systems Systems not reviewed;Unavailable: Altered Mental Status Past Patient History - Infectious Disease Hx of Infectious Diseases: None - Tetanus Immunizations Tetanus Immunization: Unknown - Past Medical History & Family History Past Medical History?: Yes - Past Social History Smoking Status: Never Smoked Alcohol: None Drugs: Denies Home Situation {Lives}: Longterm - CARDIAC Hx Hypertension: Yes Hx Pacemaker: No - PULMONARY Hx Respiratory Disorders: No - NEUROLOGICAL Hx Dementia: Yes Hx Paralysis: No - HEENT Hx Blind: Yes (vision loss; extent could not be assessed due to AMS) - RENAL Hx Chronic Kidney Disease: No - ENDOCRINE/METABOLIC Hx Diabetes Mellitus Type 2: Yes - HEMATOLOGICAL/ONCOLOGICAL Hx Anemia: Yes Hx Blood Transfusions: Yes (05/16/2017) Hx Blood Transfusion Reaction: No - INTEGUMENTARY Hx Dermatological Problems: No - MUSCULOSKELETAL/RHEUMATOLOGICAL Hx Musculoskeletal Disorders: Yes Hx Fractures: Yes - GASTROINTESTINAL Hx Gastrointestinal Disorders: No - GENITOURINARY/GYNECOLOGICAL Hx Prostate Problems: Yes (BPH) - PSYCHIATRIC Hx Emotional Abuse: No Hx Physical Abuse: No Hx Substance Use: No - SURGICAL HISTORY Hx Surgeries: Yes Hx Orthopedic Surgery: Yes (R DEZ) - ANESTHESIA Hx Anesthesia Reactions: No Hx Malignant Hyperthermia: No Meds Allergies/Adverse Reactions: Allergies Allergy/AdvReac Type Severity Reaction Status Date / Time No Known Allergies Allergy Verified 05/15/17 19:57 Physical Exam - Constitutional Appears: Toxic, No Acute Distress, Unkempt - Head Exam Head Exam: ATRAUMATIC, NORMAL INSPECTION - Eye Exam Eye Exam: PERRL - ENT Exam ENT Exam: Mucous Membranes Dry - Neck Exam Neck exam: Positive for: Normal Inspection - Respiratory Exam Respiratory Exam: NORMAL BREATHING PATTERN. absent: Rhonchi, Wheezes, Respiratory Distress - Cardiovascular Exam Cardiovascular Exam: RRR, +S1, +S2 - GI/Abdominal Exam GI & Abdominal Exam: Normal Bowel Sounds, Soft. absent: Distended, Tenderness Additional comments: hip brace wrapped around abdomen - Exam Additional comments: cm cath in place - Extremities Exam Extremities exam: Negative for: pedal edema Additional comments: b/l offloading boots R hip brace holding leg in place - Neurological Exam Neurological exam: Altered - Expanded Neurological Exam Expanded Coma Scale Eye Opening: None Coma Scale Motor Response: Withdraws to Pain Coma Scale Verbal: None Coma Scale Total: 6 Results - Vital Signs Recent Vital Signs: Last Vital Signs Temp 99.3 F 09/05/17 21:00 Pulse 89 09/05/17 21:00 Resp 16 09/05/17 21:00 BP 103/52 L 09/05/17 21:00 Pulse Ox 100 09/05/17 21:00 - Labs Result Diagrams: 09/05/17 18:00 09/05/17 18:00 Assessment & Plan - Assessment and Plan (Free Text) Assessment: 76 yo male with PMH of DM2, HTN, unspecified dementia, vision loss, UTI's and dysphagia who presents to ED from [facility] for evaluation of fever and change in responsiveness. Found to have severe sepsis likely 2/2 UTI with AMS and MAZIN. Anemia is also chronic and noted. Plan: 1. Severe sepsis likely 2/2 UTI - UA reviewed and shows elevate luekocyte esterase with many bacteria - WBC elevated and patient was febrile on presentation meeting SIRS criteria; no longer febrile. Lactate was not elevated so no code sepsis was called. - patient received vanc and cefepime in ED - patient received 3L NS in ED - CXR was unremarkable - blood, urine and sputum cultures ordered - procal ordered - cm to be d/c'ed and replaced by new one if patient unable to produce urine - will follow daily labs - recent admission showed UTI w/ klebsiella that was multi-drug resistant - will start on Meropenem (renally dosed) - LR @ 150cc/hr for hydration given dehydration on labs; recent ECHO shows EF 59 % - Tylenol PRN fever - CT chest/abd/pelvis to r/o other causes of sepsis - ID consulted, recs appreciated 2. AMS likely 2/2 delirium due to sepsis and baseline dementia - CT Head ordered to r/o intracranial abnormalities - Labs reviewed and no electrolyte abnormalities note - will ordered TSH to rule out metabolic causes - EKG reviewed; showed NSR w/ incomplete RBBB and left anterior fascicular block - NPO diet - swallow eval ordered before diet can be advanced - Neurology consulted, recs appreciated - Psych consulted, recs appreciated 3. MAZIN - likely 2/2 dehydration - adequate hydration provided - continue LR @ 150 - holding home Lasix due to dehydration - avoid nephrotoxins 4. Anemia - transfused 2u pRBC - consent for blood was obtained by ER physician - H/H in AM - iron panel, B12, folate, peripheral smear, retic count all ordered - monitor for signs of blood loss - cont folic acid supplementation 5. DM2 - will hold home Levemir 10units BID for now as patient is NPO to avoid hypogylcemic episodes - ISS - Accuchecks ACHS - hemoglobin A1C ordered, f/u results to see if patient is compliant with medications 6. HTN - Lopressor 50 mg PO BID - cont ASA 81mg 7. H/o Dementia - Cont Aricept, Risperidone 8. Hx BPH - cont flomax - maintain functional cm catheter 9. Hx constipation - cont colace and miralax 10. Hx Vit D deficiency - cont vit D supplementation 11. GI/DVT PPx - Pepcid - heparin - SCDs Patinet was seen and examined, and discussed with attending, Dr. Jacques Levy PGY1 <Eliezer Hanna U - Last Filed: 09/18/17 14:25> Results - Vital Signs Recent Vital Signs: Last Vital Signs Temp 99.4 F 09/16/17 18:28 Pulse 65 09/16/17 18:48 Resp 18 09/16/17 18:28 BP 148/77 09/16/17 18:48 Pulse Ox 99 09/16/17 16:00 - Labs Result Diagrams: 09/16/17 07:00 09/16/17 07:00 Labs: Laboratory Results - last 24 hr 09/16/17 13:03 Crossmatch See Detail Attending/Attestation - Attestation I have personally seen and examined this patient.: Yes I have fully participated in the care of the patient.: Yes I have reviewed all pertinent clinical information: Yes Notes (Text): Please read/see my dictated notes.
[2017-09-05 23:26] LABS: IRON 13 ug/dL (45-180)
[2017-09-05 23:35] LABS: % IRON SATURATION 10 % (20-55); TOTAL IRON BINDING CAPACITY 131 ug/dL (261-462)
--- NOTE | 2017-09-05 23:37 | CT ---
EXAM: CT Head Without Intravenous Contrast CLINICAL HISTORY: 76 years old, male; Signs and symptoms; Altered mental status/memory loss; Additional info: AMS TECHNIQUE: Axial computed tomography images of the head/brain without intravenous contrast. All CT scans at this facility use one or more dose reduction techniques, viz.: automated exposure control; ma/kV adjustment per patient size (including targeted exams where dose is matched to indication; i.e. head); or iterative reconstruction technique. Coronal and sagittal reformatted images were created and reviewed. COMPARISON: CT - HEAD W/O CONTRAST 2017-05-17 15:29 FINDINGS: Brain: Moderate atrophy. No intracranial hemorrhage. No mass. Few scattered foci of decreased attenuation within periventricular/subcortical white matter. No definite edema. Ventricles: No hydrocephalus. Bones/joints: No acute fracture. Soft tissues: Unremarkable. Vasculature: Atherosclerotic disease of intracranial arteries. Sinuses: Scattered minimal mucosal thickening. Mastoid air cells: Partial opacification of LEFT mastoid. Orbits: Unremarkable as visualized. Dental: Few periapical lucencies compatible with dental disease. IMPRESSION: 1. Nonspecific white matter changes. Acute infarction may be CT occult within first 24 hours. If a focal deficit persists, consider followup CT or MRI for further evaluation. 2. Incidental/non-acute findings are described above.
--- NOTE | 2017-09-06 00:07 | CT ---
EXAM: CT Chest Without Intravenous Contrast CLINICAL HISTORY: 76 years old, male; Signs and symptoms; Other: R/O infection TECHNIQUE: Axial computed tomography images of the chest without intravenous contrast. All CT scans at this facility use one or more dose reduction techniques, viz.: automated exposure control; ma/kV adjustment per patient size (including targeted exams where dose is matched to indication; i.e. head); or iterative reconstruction technique. Coronal and sagittal reformatted images were created and reviewed. COMPARISON: 05/16/2017 FINDINGS: Limitations: Lack of intravenous contrast. Motion artifact - mild. Lungs: Mild mucous within trachea and right mainstem bronchus. Mild atelectasis/scarring. No consolidation. Mild mosaic pattern of lung parenchyma. Mild interlobular septal thickening. Pleural space: Trace to small bilateral pleural effusions. No pneumothorax. Heart: No cardiomegaly. Trace focal pericardial effusion. Mild coronary artery calcifications. Bones/joints: Degenerative changes of spine. No acute fracture. Soft tissues: Minimal left gynecomastia. Mild diffuse stranding within subcutaneous tissues. Vasculature: Mild atherosclerotic disease. No aneurysm. Lymph nodes: No pathologically enlarged lymph nodes. Upper abdomen: Elevated LEFT hemidiaphragm. IMPRESSION: 1. Probable interstitial edema. Clinical correlation is needed. 2. Mild anasarca. 3. Incidental/non-acute findings are described above. EXAM: CT Abdomen and Pelvis Without Intravenous Contrast CLINICAL HISTORY: 76 years old, male; Signs and symptoms; Other: R/O infection TECHNIQUE: Axial computed tomography images of the abdomen and pelvis without intravenous contrast. All CT scans at this facility use one or more dose reduction techniques, viz.: automated exposure control; ma/kV adjustment per patient size (including targeted exams where dose is matched to indication; i.e. head); or iterative reconstruction technique. Coronal and sagittal reformatted images were created and reviewed. COMPARISON: 05/01/2017 FINDINGS: Limitations: Lack of intravenous contrast. Motion artifact - mild. Streak artifact - mild. ABDOMEN: Liver: Few low-attenuation lesions with benign imaging features, likely cysts. Gallbladder and bile ducts: No calcified stones. No ductal dilation. Pancreas: Unremarkable. No ductal dilation. Spleen: No splenomegaly. Adrenals: No mass. Kidneys and ureters: [id number] stranding about kidneys, nonspecific. Few probable renal cysts. No renal calculi. No hydronephrosis. Stomach and bowel: Few scattered diverticula within colon. No definite associated inflammatory stranding. No definite bowel wall thickening. No obstruction. Appendix: Normal caliber. No inflammation. PELVIS: Bladder: Distended bladder. Mckeon catheter, balloon inflated within urethra. Reproductive: Enlarged prostate gland. Subperitoneal space: Mild stranding/fluid in presacral space, nonspecific. ABDOMEN and PELVIS: Intraperitoneal space: No significant fluid collection. No free air. Bones/joints: RIGHT hip arthroplasty. Dislocation of right hip joint. Moderate heterotopic ossification about right hip joint. Minimal heterotopic ossification about left hip joint. Probable hip joint effusions. Degenerative changes of spine. No acute fracture. Soft tissues: Ipcd-ox-nutdbync diffuse stranding within subcutaneous tissues. Small cluster of air and possible fluid within left lower paravertebral musculature. Minimal air within overlying subcutaneous tissues. Few foci of air within spinal canal at level of lower lumbar spine/sacrum at similar level. Vasculature: Mild atherosclerotic disease. No aneurysm. Lymph nodes: No pathologically enlarged lymph nodes. IMPRESSION: 1. Air and possible fluid within left paravertebral musculature. Soft tissue infection with extension into spine not excluded. Clinical correlation is needed. 2. [id number]-[id number] anasarca. 3. Malpositioned Mckeon catheter. 4. Incidental/non-acute findings are described above.
[2017-09-06] MEDS: Meropenem 500 MG in Sodium Chloride 0.9% 100 ML IVPB SCH ×2 (00:11→11:24)
[2017-09-06] MEDS: Lactated Ringer's 1,000 ML IV SCH ×2 (00:28→11:23)
--- NOTE | 2017-09-06 02:59 | HP ---
HISTORY OF PRESENT ILLNESS: The patient is a 76-year-old obese male, who is a resident of [facility]. Today, the patient spiked a fever of greater than 102 degrees Fahrenheit and 103 degrees Fahrenheit at the [facility]. The patient's fever was unable to come down despite oral Tylenol treatment. The patient was transferred to [facility] emergency room by the EMS ambulance from [facility] for high fever and altered mental status. According to the ER physician evaluation, the [facility] the jail with high fever and altered mental status. The patient had a temperature of greater than 102 and 103 degrees Fahrenheit. The patient is in the ER bed 4. CODE STATUS: Full code. LIVING WILL ADVANCE DIRECTIVE: None. ALLERGIES: NONE. HEIGHT: 5 feet 8. WEIGHT: 230 pounds. BMI: 35. HOME MEDICATIONS: From the jail, Flomax 0.4 mg daily, Risperdal 1 mg daily, MiraLax 17 g daily, Lopressor 50 mg twice a day, Humalog sliding scale coverage with meals, Levemir 10 units twice a day, Lasix 40 mg IV q. 12, folic acid 1 mg daily, Pepcid 20 mg daily, Aricept 5 mg daily, Drisdol 50,000 units weekly, aspirin 81 mg daily, Colace 200 mg daily. SOCIAL HISTORY: Negative for smoking, alcohol, drug use. Communicable transmissible disease. OCCUPATIONAL HISTORY: Disabled elderly male. The patient is in the emergency room, bed 4. LAST DISCHARGE MEDICATIONS: The patient was last discharged from the hospital in 04/2017. The patient's last discharge medications from 04/2017, aspirin 81 mg daily, Pro-Stat 30 mL twice a day, Drisdol 50,000 units weekly, Colace 200 mg daily, Aricept 5 mg at bedtime, Pepcid 20 mg daily, folic acid 1 mg daily, Lasix 40 twice a day, Levemir 10 units twice a day, Humalog sliding scale coverage, Lopressor 50 mg twice a day, MiraLax 17 g daily, Risperdal 1 mg daily and Flomax 0.4 mg daily. PAST MEDICAL AND SURGICAL HISTORY: History of dementia, history of diabetes, history of hypertension, history of ESBL beta-lactamase Klebsiella pneumoniae urinary tract infection, history of anemia, history of sepsis, history of bilateral healthcare-associated pneumonia, effusion, atelectasis, history of severe deconditioning, gait dysfunction, history of morbid obesity, history of uncontrolled insulin-requiring diabetes mellitus, history of normocytic anemia, history of chronic kidney disease stage 2/3, history of transaminitis, history of dementia, history of constipation, history of hypovitaminosis D, history of prostatic hypertrophy with urinary retention, obstructive uropathy, history of iron-deficiency anemia, history of acute on chronic recurrent right-sided diastolic congestive heart failure with elevated right ventricular systolic pressure, tricuspid regurgitation and bilateral lower extremity venous stasis, history of volume overload, history of multiple packed red blood cell transfusion, history of sepsis secondary to multilobar healthcare-associated pneumonia and ESBL Klebsiella pneumoniae urinary tract infection with proteinuria, hematuria, pyuria, bacteriuria, history of bilateral upper and lower extremity venous stasis, history of volume and fluid overload with anasarca, history of dementia, history of possible functional quadriplegia with bedridden status and severe deconditioning and gait dysfunction, history of right ventricular ejection fraction of 59%, history of pulmonary arterial hypertension with right ventricular systolic pressure of 55 mmHg and concentric left ventricular hypertrophy and grade 1 abnormal relaxation pattern, history of moderate tricuspid regurgitation, history of hyperglycemia, history of hypoalbuminemia, history of mild aortic regurgitation, history of mildly thickened mitral valve, history of hyperkalemia, history of prostatic hypertrophy, obstructive uropathy and urinary retention, history of packed red blood cell transfusion, history of transaminitis, history of morbid obesity, history of granulocytosis, 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, history of encephalopathy, history of acute exacerbation of dementia, history of questionable behavioral disorder, history of anasarca and venous stasis of the lower extremity and scrotal edema, history of elevated body mass index, history of right bundle-branch block, left anterior hemiblock and bifascicular block, history of elevated prostate-specific antigen, history of mediastinal lymphadenopathy, history of bibasilar atelectasis, history of osteopenia,history of possible fatty liver and hepatomegaly, history of bilateral renal cyst, history of sepsis with bibasilar pneumonia, history of anasarca with scrotal and penile edema, history of bilateral lower extremity venous stasis. Past medical history is also significant for visual impairment, history of fall, history of questionable syncope versus near syncope, history of right femoral head subcapital fracture, history of status post right hip pedro and right femoral hemiarthroplasty, history of psychosis, history of behavioral disorders, history of uncontrolled insulin-requiring diabetes mellitus, history of lower extremity cellulitis and superficial skin ulceration, history of sacral decubitus ulceration unstageable versus stage I, history of questionable schizophrenia versus schizoaffective disorder, history of right hip femoral neck fracture, history of confusional state with agitation and restlessness, history of leukopenia, anemia, thrombocytopenia, pancytopenia, history of urinary tract infection with proteinuria, glycosuria, microscopic hematuria, bacteriuria, history of left leg coagulase-negative Staphylococcus left leg cellulitis and skin structure infection, history of bilateral renal cyst, history of moderate pulmonary arterial hypertension with right ventricular systolic pressure, history of bibasilar atelectasis, history of hiatal hernia, history of osteopenia, history of left gynecomastia, history of constipation, fecal stasis and fecal impaction, history of hemorrhagic cystitis with hematuria, history of questionable cystitis, history of bilateral cerebral dysfunction, history of right shoulder glenohumeral osteoarthritis, history of right upper extremity and right-sided weakness etiology undetermined, history of prostatomegaly, history of poor compliance, history of questionable TIA, history of fecal stasis, fecal retention, fecal constipation, history of left leg diabetic ulceration, history of delirium, history of pancreatic atrophy, history of bilateral adrenal nodule, history of perivesical inflammation, history of shotty mediastinal lymphadenopathy, history of left gynecomastia, history of questionable cystitis with urinary bladder wall thickening and partially distended urinary bladder with urinary retention, history of right femoral neck acute versus subacute fracture with nonunion and resorption, history of prostatomegaly. Past medical history is significant for history of right hip fracture status post fall. PHYSICAL EXAMINATION: GENERAL: The patient is in stretcher #4 in the emergency room. The patient's son is at bedside. The patient is only responsive to lethargy. The patient is lethargic, responsive to painful stimuli according to the patient's nurses. HEENT: Head examination normocephalic, atraumatic. HEENT examination shows pale conjunctivae. Dry oral mucosa. No neck rigidity. No jugular venous distention. CHEST: Shows occasional rhonchi, upper lung quiros anteriorly. CARDIOVASCULAR: S1, S2. Regular rhythm. Positive systolic murmur, left sternal border, right second intercostal space, left sternal border. ABDOMEN: Protuberant, obese, distended. GENITALIA: Male. Positive Mckeon catheter. The patient's catheter shows cloudy urine. EXTREMITIES: The patient has a right hip and femur stabilizing device noted. Positive swelling of the lower extremity noted. NEUROLOGICALLY: The patient is unable to follow commands. The patient was found to be confused and disoriented. The patient intermittently was noted to be sleeping. VITAL SIGNS: The patient's vital signs in the emergency room, T-max of 103.2, down to 99.9, down to 99.3; pulse rate 112, down to 85-89; blood pressure initially 141/49, 114/58, 103/52; respiration 20; O2 sat 100% on room air. DIAGNOSTIC TESTING: WBC 20,000, hemoglobin and hematocrit 7.2 and 22.4, platelet 368, granulocytes 91, 4 bands. PT/PTT 21.3, INR 1.85. VBG shows lactate of 1.5. Sodium 137, potassium 3.9, chloride 100, CO2 of 28, anion gap 13, BUN 65, creatinine 2.9, GFR 26, glucose 67, uric acid 10.4, calcium 8.3, phosphorus 4.0, magnesium 2.4, iron 13, TIBC 134, saturation 10, AST 97, alk phos 209, albumin 2.6. Urine pH 6.5, specific gravity 1.025, 100 protein, trace ketones, large blood, large leukocyte esterase, too numerous to count rbc and wbc, many bacteria. Influenza is negative. Blood type is B negative. The patient had a chest x-ray done, hip x-rays done, CAT scan of the chest, abdomen and pelvis done. The results of all are pending. Operation results are pending. The patient's CAT scan of the head is the only results, CT head official report shows cerebral cortical atrophy of the brain with periventricular subcortical white matter ischemic disease, atherosclerotic disease of the intracranial arteries noted. EKG results not available. The patient had a stool occult blood done in the emergency room by the ER physician, which was negative. Chest x-ray preliminary report was negative. TREATMENT IN THE EMERGENCY ROOM: The patient was given Tylenol suppository, vancomycin 1 g was given by the ER physician. The patient was given IV fluid 0.9 normal saline more than 3 L. The patient was given cefepime 1 g. The patient was given Pepcid 20 mg and the patient was admitted to the hospital. IMPRESSION AND PLAN: 1. High-grade fever of greater than 103 degrees Fahrenheit. 2. Tachycardia. 3. Hypertension and hypotension. 4. Questionable and probable sepsis. 5. Leukocytosis with granulocytosis and bandemia. 6. Normocytic anemia with decreasing hemoglobin and hematocrit. 7. Mild coagulopathy. 8. Acute renal failure, acute kidney injury. 9. Hypoglycemia. 10. Hyperuricemia. 11. Iron-deficiency normocytic anemia. 12. Transaminitis. 13. Protein malnutrition and hypoalbuminemia. 14. Sepsis with urinary tract infection with proteinuria, ketonuria, microscopic hematuria, pyuria, bacteriuria. 15. History of right hip subcapital fracture open reduction and right hip hemiarthroplasty. History of right femoral neck right hip subcapital fracture, status post surgery. 16. Dementia. 17. Psychosis. 18. Visual impairment. 19. Normocytic anemia. 20. Severe gait dysfunction. 21. Severe deconditioning. 22. History of bifascicular block, right bundle-branch block, left anterior hemiblock. 23. Cerebral cortical atrophy of the brain with periventricular subcortical white matter ischemic disease of the brain. 24. Atherosclerotic intracranial arterial disease. 25. Altered mental status and toxic metabolic encephalopathy, probably secondary to sepsis secondary to urinary tract infection with high-grade fever. 26. Dehydration and hypotension. 27. Toxic metabolic encephalopathy. 28. Anemia with decreasing hemoglobin and hematocrit. PLAN: At this time, the patient is to be admitted to [facility]. Blood cultures, urine cultures have been ordered. Serial labs have been ordered. Repeat CBC, blood cultures, urine cultures ordered. Procalcitonin level ordered. Type and crossmatch ordered. Ordered for transfusion of 2 units of PRBC ordered. Consultation of Infectious Disease, Neurology, Psychiatry ordered. The patient is resumed on Aricept 5 mg at bedtime, Colace 200 mg daily, Drisdol 50,000 weekly, Ecotrin 81 mg daily, Flomax 0.4 mg daily, folic acid 1 mg daily heparin 5000 subcu q. 12, Humalog medium-dose sliding scale coverage before meals and at bedtime. The patient is received 3 L of IV fluid in the ER. The patient will be given Ringer's lactate at 150 mL an hour, Levemir 10 units twice a day, Lopressor 50 mg twice a day. The patient is started empirically on meropenem 500 mg IV q. 12, MiraLax 17 g daily, Pepcid 20 mg daily, Risperdal 1 mg daily, Tylenol p.o. and suppository q. 4 p.r.n. for temperature. Venous Doppler of the lower extremity ordered. CAT scan of the chest, abdomen and pelvis ordered. EKG ordered. The patient has been ordered neuro checks, fingerstick blood sugar before meals and at bedtime. Head of the bed at 30 degrees at all times. Mckeon catheter change has been ordered. Neuro checks q. 2 hours ordered. Out of bed has been ordered. SCDs, HAIM stockings ordered. Transfusion of 2 units of PRBC ordered. Speech evaluation, swallow evaluation, physical therapy, occupational therapy ordered. At present, the patient is admitted to [facility]. The patient's further management will be dependent upon the patient's clinical condition, hemodynamic status and as per the patient's response of therapeutic intervention. In view of the patient's advanced age, multiple comorbidities and deconditioning state and declining medical condition, the patient's prognosis is overall guarded to poor, which I have explained to the patient's family and the patient's daughter, Yue Tadeo on multiple occasions during the last few admissions from 03/2017 and 04/2017 and in 06/2017 and also I have explained the overall guarded to poor prognosis of the patient while the patient has been in [facility] and all of the above has been discussed on multiple occasions with the patient's daughter, Yue Tadeo and they have been explained about the patient's overall guarded to poor prognosis. At this time, the patient will be admitted to [facility]. Dictated and electronically signed, not read. Eliezer Hanna MD MTDD
[2017-09-06] MEDS: Insulin Lispro (humaLOG) MEDIUM Coverage SC SCH ×4 (07:30→22:50)
[2017-09-06 09:50] LABS: HEMOGLOBIN 8.6 g/dL (14.0-18.0); MEAN CELL VOLUME 90.4 fl (80.0-105.0); MEAN CORPUSCULAR HEMOGLOBIN 29.6 pg (25.0-35.0); MEAN CORPUSCULAR HGB CONC 32.7 g/dl (31.0-37.0); RBC 2.91 10^6/uL (3.5-6.1); RED CELL DISTRIBUTION WIDTH 15.3 % (11.5-14.5); WHITE BLOOD COUNT 21.5 10^3/ul (4.5-11.0)
[2017-09-06 09:54] LABS: INR 1.81 (0.93-1.08); PROTHROMBIN TIME 21.1 SECONDS (9.4-12.5)
[2017-09-06] MEDS ORDERED: Insulin Detemir 100 units/ml Vial (Levemir) SC SCH (10:00)
--- NOTE | 2017-09-06 10:02 | CP.PCM.CON ---
History of Present Illness - History of Present Illness History of Present Illness: GENERAL SURGERY CONSULT NOTE FOR DR. ANTHONY 76yo M with PMHx of DM, HTN, dementia, dysphagia vision loss, UTIs was sent from [facility] to ED for fever of 101.3 and decrease in responsiveness from baseline. Patient only oriented to place (not his own name) and therefore information obtained from EMR. Per the records, the son stated that the patient' s responsiveness has changed from baseline and he was only responsive to tactile stimulus. Mckeon in place. In the ED, found to be septic, have a UTI, anemic and was transfused PRBC. He was also found to have MAZIN and was bolused 3LNS. Cultures were ordered. Patient has sacral ulcer for which surgery was consulted. The ulcer was evaluated by Dr. Plunkett during his admission in April 2017. At that time it was stage III and Santyl was recommended. PMHx: DM, HTN, dementia, dysphagia vision loss, UTIs Surgeries: R DEZ (03/2017) which required revision in 04/2017 due to dislocation but is now dislocated again Allergies: none Social history: came from [facility] Past Patient History - Infectious Disease Hx of Infectious Diseases: None - Tetanus Immunizations Tetanus Immunization: Unknown - Past Medical History & Family History Past Medical History?: Yes - Past Social History Smoking Status: Never Smoked - CARDIAC Hx Hypertension: Yes Hx Pacemaker: No - PULMONARY Hx Respiratory Disorders: No - NEUROLOGICAL Hx Dementia: Yes (as per NH chart) Hx Seizures: Yes - HEENT Hx Blind: Yes (vision loss; extent could not be assessed due to AMS) - RENAL Hx Chronic Kidney Disease: No - ENDOCRINE/METABOLIC Hx Diabetes Mellitus Type 2: Yes - HEMATOLOGICAL/ONCOLOGICAL Hx Anemia: Yes - INTEGUMENTARY Hx Dermatological Problems: No - MUSCULOSKELETAL/RHEUMATOLOGICAL Hx Musculoskeletal Disorders: Yes Hx Falls: Yes Hx Fractures: Yes - GASTROINTESTINAL Hx Gastrointestinal Disorders: No - GENITOURINARY/GYNECOLOGICAL Hx Prostate Problems: Yes (BPH) - PSYCHIATRIC Hx Emotional Abuse: No Hx Physical Abuse: No Hx Schizophrenia: Yes (as per NH chart; unspecified) Hx Substance Use: No - SURGICAL HISTORY Hx Surgeries: Yes Hx Orthopedic Surgery: Yes (R DEZ) - ANESTHESIA Hx Anesthesia Reactions: No Hx Malignant Hyperthermia: No Meds Allergies/Adverse Reactions: Allergies Allergy/AdvReac Type Severity Reaction Status Date / Time No Known Allergies Allergy Verified 05/15/17 19:57 - Medications Medications: Current Medications Acetaminophen (Tylenol 325mg Tab) 650 mg PO Q4 PRN PRN Reason: FOR TEMP>=99.5F Acetaminophen (Tylenol 650 Mg Supp) 650 mg RC Q4H PRN PRN Reason: FEVER>=99.5F Aspirin (Ecotrin) 81 mg PO DAILY [facility] Docusate Sodium (Colace) 200 mg PO QPM [facility] Donepezil HCl (Aricept) 5 mg PO HS [facility] Ergocalciferol (Drisdol 50,000 Intl Units Cap) 1 cap PO [place] Famotidine (Pepcid) 20 mg PO DAILY [facility] Folic Acid (Folic Acid) 1 mg PO DAILY [facility] Heparin Sodium (Porcine) (Heparin) 5,000 units SC Q12 [facility] PRN Reason: Protocol Last Admin: 09/06/17 00:11 Dose: 5,000 units Lactated Ringer's (Lactated Ringer's) 1,000 mls @ 150 mls/hr IV .[id number] [facility] Last Admin: 09/06/17 00:28 Dose: 150 mls/hr Meropenem 500 mg/ Sodium (Chloride) 100 mls @ 100 mls/hr IVPB Q12H [facility] PRN Reason: Protocol Stop: 09/06/17 11:29 Last Admin: 09/06/17 00:11 Dose: 100 mls/hr Insulin Human Lispro (Humalog Med) 0 units SC ACHS [facility] PRN Reason: Protocol Metoprolol Tartrate (Lopressor) 50 mg PO BID [facility] Polyethylene Glycol (Miralax) 17 gm PO DAILY [facility] Risperidone (Risperdal Tab) 1 mg PO DAILY [facility] PRN Reason: Protocol Tamsulosin HCl (Flomax) 0.4 mg PO DAILY [facility] Physical Exam - Constitutional Appears: Non-toxic, No Acute Distress, Chronically Ill - Head Exam Head Exam: ATRAUMATIC, NORMAL INSPECTION - Respiratory Exam Respiratory Exam: NORMAL BREATHING PATTERN. absent: Respiratory Distress - Cardiovascular Exam Cardiovascular Exam: +S1, +S2. absent: Tachycardia Results - Vital Signs Recent Vital Signs: Last Vital Signs Temp 98.8 F 09/06/17 06:03 Pulse 90 09/06/17 06:03 Resp 18 09/06/17 06:03 BP 120/61 09/06/17 06:03 Pulse Ox 100 02/11/18 00:28 - Labs Result Diagrams: 09/06/17 09:00 09/06/17 09:00 Labs: Laboratory Results - last 24 hr 09/05/17 09/05/17 09/06/17 22:00 22:00 01:14 WBC RBC Hgb Hct MCV MCH MCHC RDW Plt Count MPV PT INR POC Glucose (mg/dL) 74 Ur Random Creatinine 71 Ur Random Sodium 97 Ur Random Potassium 35.7 Ur Random Uric Acid 16.9 Ur Random Urea Nitrogn 200 09/06/17 09/06/17 09/06/17 05:09 09:00 09:00 WBC 21.5 H RBC 2.91 L Hgb 8.6 L Hct 26.3 L MCV 90.4 MCH 29.6 MCHC 32.7 RDW 15.3 H Plt Count 322 MPV 9.0 PT 21.1 H INR 1.81 H POC Glucose (mg/dL) 72 Ur Random Creatinine Ur Random Sodium Ur Random Potassium Ur Random Uric Acid Ur Random Urea Nitrogn Assessment & Plan - Assessment and Plan (Free Text) Assessment: 76yo M with PMHx of DM, HTN, dementia, dysphagia vision loss, UTIs was sent from [facility] for fever and AMS and was found to have anemia, MAZIN, and sepsis likely secondary to UTI with sacral osteomyelitis - IV antibiotics, currently on Merrem (previous UTI was multi-drug resistant Klebsiella) - Will follow up blood, urine, and sputum cx. - CT: sacral decubitus ulcer with sacral/coccygeal osteomyelitis with probable adjacent soft tissue infection along left paravertebral musculature with probable extension to spine - Recommend MRI - Will FU bone scan ordered by medicine team - Will pack small opening with 1/4" iodaform BID - Discussed plan with Dr. Jass Pollard PGY-3
[2017-09-06 10:17] LABS: ALB/GLOB RATIO 0.6 (1.1-1.8); ALBUMIN 2.4 g/dL (3.0-4.8); BILIRUBIN,DIRECT 1.6 mg/dL (0.0-0.4); CALCIUM 8.4 mg/dL (8.4-10.5); MAGNESIUM 2.1 mg/dL (1.7-2.2)
--- NOTE | 2017-09-06 10:26 | RAD ---
HISTORY: Sepsis Patient COMPARISON: September 05, 2017. CT thorax, 05/16/2017 CT thorax FINDINGS: LUNGS: No active pulmonary disease. PLEURA: No significant pleural effusion identified, no pneumothorax apparent. Pleural effusions apparent on the prior CT scan 05/16/2017 have resolved. CARDIOVASCULAR: No radiographic findings to suggest acute or significant cardiovascular disease. OSSEOUS STRUCTURES: No significant abnormalities. VISUALIZED UPPER ABDOMEN: Normal. OTHER FINDINGS: None. IMPRESSION: No active disease.
--- NOTE | 2017-09-06 10:31 | RAD ---
PROCEDURE: Single-view pelvis HISTORY: fixation device with fever COMPARISON: September 05, 2017. CT thorax abdomen and pelvis. TECHNIQUE: Standard protocol for this study/examination. FINDINGS: Dislocation of the left femur (arthroplasty) from the acetabulum. IMPRESSION: Dislocated right femur (both aspects of the arthroplasty) from [place] acetabulum. Acuity/ chronicity cannot be ascertained on both the time of the prior CT scan of the abdomen and pelvis there was anatomic preservation of the relationship of the femoral and acetabular components.
[2017-09-06] MEDS ORDERED: Vancomycin 1gm in NS 250ml 1 GM/250 ML BAG IVPB STA (11:27)
[2017-09-06] MEDS: POLYETHYLENE GLYCOL 3350 17 GM/Dose PACKET PO SCH (12:20)
[2017-09-06 13:03] LABS: FOLATE > 20.0 ng/mL
[2017-09-06] MEDS: Acetylcysteine 20% Inhal Soln (4ml) IH SCH (20:09)
[2017-09-06] MEDS: Levalbuterol 0.63 MG/3 ML Inhal Soln UD IH SCH (20:09)
--- NOTE | 2017-09-06 21:38 | CARD ---
APPROVED REPORT EKG Measurement Heart [id number] <Conclusion> Normal sinus rhythm Incomplete right bundle branch block Left anterior fascicular block Abnormal ECG
[2017-09-06] MEDS ORDERED: Meropenem 500 MG in Sodium Chloride 0.9% 50 ML IVPB SCH (22:00)
--- NOTE | 2017-09-06 23:39 | CON ---
DATE: 09/06/2017 CHIEF COMPLAINT: Weakness times several days. HISTORY OF PRESENT ILLNESS: This is a 76-year-old male with past medical history of obesity, hypertension, diabetes and coronary artery disease with a history of ESBL Klebsiella urinary tract infection in 04/2017. Patient also had a history of a right hip surgery, admitted through the emergency room yesterday, was seen by Luis Jiménez and patient admitted through the emergency room and the emergency room chart says that the patient had an evaluation from a assisted because of fever and poorly responsive. This morning, patient is still poorly responsive and did have a fever last night in the emergency room. There has been no abdominal pain, diarrhea or constipation reported, and no chest pain. There has been mild shortness of breath reported. No bright red blood per rectum. PAST MEDICAL HISTORY: Significant for obesity, BMI of 35, hypertension, diabetes, coronary artery disease, ESBL Klebsiella urinary tract infection in 04/2016. Patient also with BPH and also history of schizophrenia as per the assisted note. PAST SURGICAL HISTORY: Significant for right hip surgery. ALLERGIES: PATIENT HAS NO KNOWN ALLERGIES. MEDICATIONS: Medications at the assisted are reviewed, include metoprolol, insulin, furosemide, famotidine. PHYSICAL EXAMINATION: GENERAL: Patient is in bed. VITAL SIGNS: Temperature of 99, T-max was 103.2; heart rate is 100, it was up to 112 and respiratory rate of 18 to 20; blood pressure is 120/60. HEENT: Unremarkable. NECK: Supple. LUNGS: Decreased breath sounds. HEART: Normal S1, S2. ABDOMEN: Soft, nontender. No rebound, no guarding. No masses. LABORATORY EXAMINATION: Reveals a white count is 20,000, hemoglobin of 7 with platelets of 368, 91% granulocytosis and sed rate is 136. Coagulation is noted. Blood gases are reviewed. Creatinine is 2.9. Patient's last creatinine was at 1.0 and that was in 04/2017. LFTs are elevated. Alk phos is elevated. Urinalysis is noted to have too numerous wbc's and many bacteria and there is large blood and large leukocyte esterase. Influenza is negative. Cultures are pending. Patient had a CAT scan of the chest and abdomen, which shows sacral decubitus ulcer and osteomyelitis in the abdomen and interstitial edema. Patient's chest x-ray is also reviewed. consultation is reviewed. Chest x-ray shows him to be negative. ASSESSMENT AND PLAN: He is a 76-year-old male with obesity, hypertension, diabetes, coronary artery disease, extended-spectrum beta-lactamase Klebsiella in the urine in 04/2017, benign prostatic hypertrophy, schizophrenia, admitted with a temperature of 103.2, tachycardia, and positive urinalysis with severe sepsis secondary to urine as the source with acute kidney injury. Creatinine is changed from 1.0 to 2.9 with sacral decubitus ulcers and we will treat the patient with meropenem. We will adjust the dose for renal failure. We will give a dose of vancomycin. Pending blood cultures, urine cultures, wound cultures from the sacral decubiti and we will follow closely with you. Overall prognosis is quite poor. Jose Jennings MD
[2017-09-07] MEDS: Acetylcysteine 20% Inhal Soln (4ml) IH SCH ×4 (00:38→20:04)
[2017-09-07] MEDS: Levalbuterol 0.63 MG/3 ML Inhal Soln UD IH SCH ×4 (00:38→20:04)
[2017-09-07] MEDS: Lactated Ringer's 1,000 ML IV SCH ×3 (02:13→22:20)
--- NOTE | 2017-09-07 07:47 | CP.PCM.PN ---
Subjective - Date & Time of Evaluation Date of Evaluation: 09/07/17 Time of Evaluation: 07:47 - Subjective Subjective: General Surgery progress note Patient seen and examined at bedside. No complaints at this time. Objective - Vital Signs/Intake and Output Vital Signs (last 24 hours): Temp Pulse Resp BP Pulse Ox 96.8 F L 83 20 130/70 97 09/07/17 07:46 09/07/17 07:46 09/07/17 07:46 09/07/17 07:46 09/07/17 07:46 Intake and Output: 09/07/17 09/07/17 06:59 18:59 Intake Total 360 Output Total 225 Balance 135 - Medications Medications: Current Medications Acetaminophen (Tylenol 325mg Tab) 650 mg PO Q4 PRN PRN Reason: FOR TEMP>=99.5F Acetaminophen (Tylenol 650 Mg Supp) 650 mg RC Q4H PRN PRN Reason: FEVER>=99.5F Acetylcysteine (Acetylcysteine 20%) 4 ml IH [id number] [facility] Last Admin: 09/07/17 07:32 Dose: 4 ml Aspirin (Ecotrin) 81 mg PO DAILY [facility] Last Admin: 09/06/17 12:18 Dose: 81 mg Docusate Sodium (Colace) 200 mg PO QPM [facility] Last Admin: 09/06/17 19:00 Dose: Not Given Donepezil HCl (Aricept) 10 mg PO HS [facility] Last Admin: 09/06/17 22:52 Dose: 10 mg Ergocalciferol (Drisdol 50,000 Intl Units Cap) 1 cap PO MON [facility] Famotidine (Pepcid) 20 mg PO DAILY [facility] Last Admin: 09/06/17 12:18 Dose: 20 mg Folic Acid (Folic Acid) 1 mg PO DAILY [facility] Last Admin: 09/06/17 12:18 Dose: 1 mg Heparin Sodium (Porcine) (Heparin) 5,000 units SC Q12 [facility] PRN Reason: Protocol Last Admin: 09/06/17 22:50 Dose: 5,000 units Lactated Ringer's (Lactated Ringer's) 1,000 mls @ 150 mls/hr IV .Q6H40M [facility] Last Admin: 09/07/17 02:13 Dose: 150 mls/hr Iron Sucrose 200 mg/ Sodium (Chloride) 110 mls @ 110 mls/hr IVPB DAILY [facility] Stop: 09/08/17 10:59 Last Admin: 09/06/17 17:22 Dose: 110 mls/hr Meropenem 500 mg/ Sodium (Chloride) 100 mls @ 100 mls/hr IVPB Q12 [facility] PRN Reason: Protocol Stop: 09/15/17 22:01 Insulin Human Lispro (Humalog Med) 0 units SC ACHS [facility] PRN Reason: Protocol Last Admin: 09/06/17 22:50 Dose: Not Given Levalbuterol HCl (Xopenex) 0.63 mg IH [id number] [facility] Last Admin: 09/07/17 07:32 Dose: 0.63 mg Metoprolol Tartrate (Lopressor) 50 mg PO BID [facility] Last Admin: 09/06/17 19:02 Dose: 50 mg Polyethylene Glycol (Miralax) 17 gm PO DAILY [facility] Last Admin: 09/06/17 12:20 Dose: Not Given Risperidone (Risperdal Tab) 1 mg PO DAILY [facility] PRN Reason: Protocol Last Admin: 09/06/17 12:19 Dose: 1 mg Tamsulosin HCl (Flomax) 0.4 mg PO DAILY [facility] Last Admin: 09/06/17 12:17 Dose: 0.4 mg - Labs Labs: 09/06/17 09:00 09/06/17 09:00 PT 21.1 SECONDS (9.4-12.5) H 09/06/17 09:00 INR 1.81 (0.93-1.08) H 09/06/17 09:00 APTT 29.4 Seconds (25.1-36.5) 09/05/17 18:00 - Constitutional Appears: Well - Head Exam Head Exam: ATRAUMATIC, NORMAL INSPECTION, NORMOCEPHALIC - Eye Exam Eye Exam: EOMI, Normal appearance, PERRL Pupil Exam: NORMAL ACCOMODATION, PERRL - ENT Exam ENT Exam: Mucous Membranes Moist, Normal Exam - Neck Exam Neck Exam: Full ROM, Normal Inspection. absent: Lymphadenopathy - Respiratory Exam Respiratory Exam: Clear to Ausculation Bilateral, NORMAL BREATHING PATTERN - Cardiovascular Exam Cardiovascular Exam: REGULAR RHYTHM, +S1, +S2. absent: Murmur - GI/Abdominal Exam GI & Abdominal Exam: Soft, Normal Bowel Sounds. absent: Tenderness - Extremities Exam Extremities Exam: Full ROM, Normal Capillary Refill, Normal Inspection. absent : Joint Swelling, Pedal Edema - Back Exam Back Exam: NORMAL INSPECTION - Neurological Exam Neurological Exam: Alert, Awake, CN II-XII Intact, Normal Gait, Oriented x3 - Psychiatric Exam Psychiatric exam: Normal Affect, Normal Mood - Skin Skin Exam: Dry, Intact, Normal Color, Warm Assessment and Plan - Assessment and Plan (Free Text) Assessment: Assessment and Plan 76yo M with PMHx of DM, HTN, dementia, dysphagia vision loss, UTIs was sent from [facility] for fever and AMS and was found to have anemia, MAZIN, and sepsis likely secondary to UTI with sacral osteomyelitis - IV antibiotics, currently on Merrem (previous UTI was multi-drug resistant Klebsiella) - Will follow up blood, urine, and sputum cx. - CT: sacral decubitus ulcer with sacral/coccygeal osteomyelitis with probable adjacent soft tissue infection along left paravertebral musculature with probable extension to spine - Recommend MRI - Will FU bone scan ordered by medicine team - Will pack small opening with 1/4" iodaform BID - Discussed plan with Dr. Regan
[2017-09-07 07:57] LABS: HEMOGLOBIN 9.5 g/dL (14.0-18.0); MEAN CELL VOLUME 88.8 fl (80.0-105.0); MEAN CORPUSCULAR HEMOGLOBIN 29.5 pg (25.0-35.0); MEAN CORPUSCULAR HGB CONC 33.2 g/dl (31.0-37.0); MEAN PLATELET VOLUME 8.8 fl (7.0-11.0); RBC 3.22 10^6/uL (3.5-6.1); RED CELL DISTRIBUTION WIDTH 15.2 % (11.5-14.5); WHITE BLOOD COUNT 21.1 10^3/ul (4.5-11.0)
[2017-09-07 08:09] LABS: INR 1.92 (0.93-1.08); PROTHROMBIN TIME 22.4 SECONDS (9.4-12.5)
[2017-09-07 08:10] LABS: ALB/GLOB RATIO 0.6 (1.1-1.8); ALBUMIN 2.3 g/dL (3.0-4.8); BILIRUBIN,DIRECT 1.3 mg/dL (0.0-0.4); CALCIUM 8.1 mg/dL (8.4-10.5)
[2017-09-07] MEDS: Insulin Lispro (humaLOG) MEDIUM Coverage SC SCH ×4 (08:11→22:32)
[2017-09-07 08:12] LABS: MAGNESIUM 2.2 mg/dL (1.7-2.2)
[2017-09-07 08:23] LABS: FREE T4 1.94 ng/dL (0.78-2.19); T4 4.4 ug/dL (5.5-11.0)
--- NOTE | 2017-09-07 08:50 | CON ---
DATE: 09/06/2017 NEUROLOGY CONSULTATION REASON FOR CONSULTATION: Altered mental status. HISTORY OF PRESENTING ILLNESS: The patient is a 76-year-old male, resident of [facility], was transferred because the patient was experiencing fever. The patient was also noted to be confused. That is why neurology consultation was called. Patient is unable to give any reasonable history. History is mainly from the chart. The patient at baseline is also very confused and intermittently gets agitated. REVIEW OF SYSTEMS: Denies any headache, dizziness, chest pain, shortness of breath, abdominal pain, constipation, diarrhea, dysuria, cough, or sputum production. PAST MEDICAL HISTORY: Includes diabetes mellitus, hypertension, dementia, history of anemia, history of deconditioning. MEDICATIONS AT CUSTODIAL: Included Flomax, Risperdal 1 mg daily, MiraLax, Lopressor, Humalog, Levemir, Lasix, folic acid, Pepcid, Aricept 5 mg, vitamin D3, aspirin 81 mg, and Colace. ALLERGIES: NO KNOWN DRUG ALLERGIES. SOCIAL HISTORY: The patient is a [facility] resident, nonsmoker, nonalcoholic. Does not use any illicit drugs. FAMILY HISTORY: Unknown. PHYSICAL EXAMINATION: GENERAL: The patient is an elderly male, lying on the bed, in no acute distress. VITAL SIGNS: His blood pressure is 117/86, heart rate is 88 per minute, breathing at the rate of 16 per minute, temperature is 99.1 degrees Fahrenheit. HEENT: Head is normocephalic and atraumatic. NECK: Supple. There are no carotid bruits. LUNGS: Clear. CARDIOVASCULAR SYSTEM: S1 and S2 audible. No murmurs. ABDOMEN: Soft and nontender with bowel sounds present. NEUROLOGIC: Mental status: The patient is sleepy, but arousable. He follows some simple commands. He is oriented to place as hospital. year is 94, month is September. He does not know the name of the President. He follows simple commands. Cranial nerve examination: Pupils are 3 mm bilaterally and reactive to light. There is restricted movement in the right eye particularly laterally. He is moving his left eye. There is no facial asymmetry. Motor examination: Tone is normal. He has minimal withdrawal to extremities to noxious painful stimuli. Reflexes are absent. Plantars, no response. Gait is deferred. Patient is bed bound. LABORATORY DATA: Reviewed shows WBC of 21.5, hemoglobin 8.6, hematocrit 26.3, and platelets of 322. His ESR is 136. Sodium is 139, potassium 4.0, chloride 105, carbon dioxide 23, BUN 64, creatinine of 3.0 and glucose of . He had a CT scan of the head done, which showed nonspecific white matter changes. IMPRESSION: 1. Altered mental status, which is secondary to toxic metabolic encephalopathy. 2. Sepsis. 3. Renal failure. 4. Dementia. RECOMMENDATIONS: 1. Patient has been on Aricept 5 mg for a while. We will increase the dose to 10 mg once a day. 2. Patient did have an electroencephalogram. 3. Patient to be treated with IV antibiotics for his sepsis. 4. Patient did have bedside physical therapy. 5. Patient had vitamin B12 level, which is 540 within normal limits. His TSH is normal. 6. Please continue supportive care and other treatment. Thank you for the opportunity to participate in the care of this patient. Toy Kaur MD
--- NOTE | 2017-09-07 10:05 | PN ---
DATE: 09/06/2017 LOCATION: The patient is seen in room 575, bed 1. SUBJECTIVE: The patient is lying in the bed. The patient is alert, awake, responsive, confused, disoriented. Overnight nurses' notes were reviewed. PHYSICAL EXAMINATION GENERAL: The patient is seen lying in the bed. VITAL SIGNS: T-max has come down from 103 degrees down to 98, 99, 97; heart rate 88, 86, 96; blood pressure 126/81, 116/70, 113/60; respiration 20; O2 sat is 100%. HEENT: Head: Examination normocephalic, atraumatic. HEENT examination shows positive blindness. [place], pale conjunctivae. Dry oral mucosa. NECK: No neck rigidity. CHEST: Examination kyphosis. LUNG: Examination shows no rales, crackles, or wheezing. CARDIOVASCULAR: Examination shows S1, S2. Regular rhythm. ABDOMEN: Soft. Positive bowel sounds. GENITALIA: Male. Positive Mckeon catheter. BACK: Examination as per the nurses' note. The patient has stage III decubitus ulceration. EXTREMITIES: Lower extremity examination shows trace swelling of the lower extremity plus positive flexion contracture. LABORATORY DATA: September 06, WBC , hemoglobin/hematocrit 8.6/26.3, platelet 322. ESR is greater than 136. PT 21.1, INR 1.81. Sodium 139, potassium 4.0, chloride 105, CO2 of 23, anion gap 16, BUN 64, creatinine 3.0, GFR 25, random glucose 69, hemoglobin A1c 6.7, uric acid is 10.4, phosphorus is 4.8, magnesium 2.1, total bili 1.6, direct bili 1.6, AST 84, ALT 66, alk phos 173, procalcitonin level 16.6. TSH is normal. Iron 13, TIBC 131, iron saturation 10, transferrin less than 80. Albumin 2.6. Urine protein 100, large blood, large leukocyte esterase, many bacteria. Influenza negative. Blood cultures now have growth of gram negative rods. IMPRESSION: 1. High-grade fever. 2. Gram-negative tejal bacteremia and sepsis. 3. Stage II to III sacral decubitus ulceration. 4. Hypotension. 5. Leukocytosis with granulocytosis and bandemia. 6. Elevated erythrocyte sedimentation rate of 136. 7. Mild coagulopathy. 8. Acute kidney injury. 9. Insulin-requiring diabetes mellitus with hemoglobin A1c of 6.7. 10. Iron-deficiency anemia. 11. Transaminitis. 12. Hypoalbuminemia. 13. Severe gait dysfunction and bedridden status. 14. Sacral decubitus ulceration. 15. Hyperuricemia. 16. Hyperbilirubinemia. 17. Hyperprocalcitoninemia. 18. Proteinuria, microscopic hematuria, pyuria, bacteriuria. 19. Right femur dislocation from [place] acetabulum. 20. 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 21. Bilateral hip joint effusion and heterotrophic ossification of the right hip joint and left hip joint. 22. Degenerative joint disease of the spine. 23. Posterior sacral coccyx erosion. 24. Colonic diverticulosis. 25. 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 26. Ebox-oa-lbbgvuav anasarca. 27. Urinary retention. 28. Mucus plugging and bilateral atelectasis. 29. Interlobular septal thickening. 30. Coronary artery calcification. 31. Degenerative joint disease of spine. 32. Mild left gynecomastia. 33. Elevated left hemidiaphragm. 34. Questionable interstitial edema and anasarca. 35. Bilateral renal cyst. 36. Colonic diverticulosis. 37. Prostatomegaly. 38. Right hip arthroplasty with dislocation of the right hip joint and moderate heterotrophic ossification about the right hip joint. 39. Anasarca. 40. Bilateral perinephric stranding and bilateral renal cyst. 41. Cerebral cortical atrophy of the brain. 42. Periventricular subcortical white matter disease of the brain. 43. Atherosclerotic intracranial arterial disease. 44. Left mastoid partial opacification. 45. Gait dysfunction. 46. Severe deconditioning. 47. Insulin-requiring diabetes mellitus. 48. Anemia, etiology undetermined. 49. Iron-deficiency anemia, etiology undetermined. 50. Incomplete right bundle branch block, left anterior hemiblock, bifascicular block. 51. Mild oral dysphagia. 1. High-grade fever of greater than 103 degrees Fahrenheit. 2. Tachycardia. 3. Hypertension and hypotension. 4. Questionable and probable sepsis. 5. Leukocytosis with granulocytosis and bandemia. 6. Normocytic anemia with decreasing hemoglobin and hematocrit. 7. Mild coagulopathy. 8. Acute renal failure, acute kidney injury. 9. Hypoglycemia. 10. Hyperuricemia. 11. Iron-deficiency normocytic anemia. 12. Transaminitis. 13. Protein malnutrition and hypoalbuminemia. 14. Sepsis with urinary tract infection with proteinuria, ketonuria, microscopic hematuria, pyuria, bacteriuria. 15. History of right hip subcapital fracture open reduction and right hip hemiarthroplasty. History of right femoral neck right hip subcapital fracture, status post surgery. 16. Dementia. 17. Psychosis. 18. Visual impairment. 19. Normocytic anemia. 20. Severe gait dysfunction. 21. Severe deconditioning. 22. History of bifascicular block, right bundle-branch block, left anterior hemiblock. 23. Cerebral cortical atrophy of the brain with periventricular subcortical white matter ischemic disease of the brain. 24. Atherosclerotic intracranial arterial disease. 25. Altered mental status and toxic metabolic encephalopathy, probably secondary to sepsis secondary to urinary tract infection with high-grade fever. 26. Dehydration and hypotension. 27. Toxic metabolic encephalopathy. 28. Anemia with decreasing hemoglobin and hematocrit. PLAN: At this time, the patient has been ordered repeat CMP, LFT, magnesium, phosphorus. Repeat CBC, PT/INR, repeat blood cultures ordered. Sputum cultures ordered. Current consultation Infectious Disease, next Psychiatry, next Neurology, next Surgery, next Nephrology, next Orthopedics. CURRENT MEDICATIONS: 1. Aricept 10 mg at bedtime. 2. Colace 200 mg at the night. 3. Drisdol 50,000 units weekly. 4. Ecotrin 81 mg daily. 5. Flomax 0.4 mg daily. 6. Folic acid 1 mg daily. 7. Heparin 5000 SubQ q.12. 8. Humalog medium dose sliding scale coverage before meals and at bedtime. 9. The patient is started on iron 200 mg IV daily. 10. The patient is on Ringer's lactate at 150 mL an hour. 11. Lopressor 50 mg twice a day. 12. The patient is on meropenem 500 mg IV q.12. 13. MiraLAX 17 g daily. 14. Pepcid 20 mg daily. 15. Risperdal 1 mg daily. 16. Tylenol 650 mg p.o. suppository q. p.r.n. for temperature greater than, equal to 99.5. The patient has been ordered venous Doppler. Bone scan has been ordered for evaluation of sacral decubitus ulceration. EEG ordered. The patient is on dysphagia modified consistency diet. Advance bite, size thin. At present, the patient's overall prognosis is guarded to poor. We will await further recommendation by all the subspecialty involved in the care of the patient. The patient's daughter, uYe Tadeo, was contacted, message left on phone number [phone]. The patient will be started on Xopenex nebulizer, Mucomyst nebulizer. The patient's Mckeon catheter will be reinserted so the balloon is inflated within the bladder. Dictated and electronically signed, not read. Eliezer Hanna MD MTDD
[2017-09-07] MEDS: POLYETHYLENE GLYCOL 3350 17 GM/Dose PACKET PO SCH (10:28)
[2017-09-07] MEDS: Ergocalciferol 50,000 Intl Units Cap PO SCH (10:29)
[2017-09-07] MEDS: Meropenem 500 MG in Sodium Chloride 0.9% 100 ML IVPB SCH ×2 (10:31→22:06)
[2017-09-07 13:30] LABS: HEPATITIS B SURFACE AG Negative (NEGATIVE)
[2017-09-07 13:48] LABS: HEPATITIS C ANTIBODY NEGATIVE (NEGATIVE)
--- NOTE | 2017-09-07 15:14 | CP.PCM.CON ---
<Kauffman,Jeseniaguerajenny - Last Filed: 09/07/17 15:09> History of Present Illness - History of Present Illness History of Present Illness: 76 year old male patient with PMHx of DM2, HTN, unspecified dementia, vision loss, UTI's and dysphagia was seen and evaluated at bedside for lower extremity evaluation. Unable to communicate with patient fully due to patient being a poor historian and does not respond to verbal commands properly. Patient appears to be resting comfortably in his bed. Patient is alert and awake at the time of the visit. PMHx: DM2, HTN, unspecified dementia, vision loss, UTI's PSHx: R DEZ (03/2017) which required revision (04/2017) due to dislocation but is now dislocated again Allergies: NKDA SHx: from [facility] ([facility]) Review of Systems - Constitutional Constitutional: As Per HPI Past Patient History - Infectious Disease Hx of Infectious Diseases: None - Tetanus Immunizations Tetanus Immunization: Unknown - Past Medical History & Family History Past Medical History?: Yes - Past Social History Smoking Status: Never Smoked - CARDIAC Hx Hypertension: Yes Hx Pacemaker: No - PULMONARY Hx Respiratory Disorders: No - NEUROLOGICAL Hx Dementia: Yes (as per NH chart) Hx Seizures: Yes - HEENT Hx Blind: Yes (vision loss; extent could not be assessed due to AMS) - RENAL Hx Chronic Kidney Disease: No - ENDOCRINE/METABOLIC Hx Diabetes Mellitus Type 2: Yes - HEMATOLOGICAL/ONCOLOGICAL Hx Anemia: Yes - INTEGUMENTARY Hx Dermatological Problems: No - MUSCULOSKELETAL/RHEUMATOLOGICAL Hx Musculoskeletal Disorders: Yes Hx Falls: Yes Hx Fractures: Yes - GASTROINTESTINAL Hx Gastrointestinal Disorders: No - GENITOURINARY/GYNECOLOGICAL Hx Prostate Problems: Yes (BPH) - PSYCHIATRIC Hx Emotional Abuse: No Hx Physical Abuse: No Hx Schizophrenia: Yes (as per NH chart; unspecified) Hx Substance Use: No - SURGICAL HISTORY Hx Surgeries: Yes Hx Orthopedic Surgery: Yes (R DEZ) - ANESTHESIA Hx Anesthesia Reactions: No Hx Malignant Hyperthermia: No Meds Allergies/Adverse Reactions: Allergies Allergy/AdvReac Type Severity Reaction Status Date / Time No Known Allergies Allergy Verified 05/15/17 19:57 - Medications Medications: Current Medications Acetaminophen (Tylenol 325mg Tab) 650 mg PO Q4 PRN PRN Reason: FOR TEMP>=99.5F Acetaminophen (Tylenol 650 Mg Supp) 650 mg RC Q4H PRN PRN Reason: FEVER>=99.5F Acetylcysteine (Acetylcysteine 20%) 4 ml IH [id number] [facility] Last Admin: 09/07/17 13:19 Dose: Not Given Aspirin (Ecotrin) 81 mg PO DAILY [facility] Last Admin: 09/07/17 10:29 Dose: 81 mg Docusate Sodium (Colace) 200 mg PO QPM [facility] Last Admin: 09/06/17 19:00 Dose: Not Given Donepezil HCl (Aricept) 10 mg PO HS [facility] Last Admin: 09/06/17 22:52 Dose: 10 mg Ergocalciferol (Drisdol 50,000 Intl Units Cap) 1 cap PO MON [facility] Last Admin: 09/07/17 10:29 Dose: 1 cap Famotidine (Pepcid) 20 mg PO DAILY [facility] Last Admin: 09/07/17 10:29 Dose: 20 mg Folic Acid (Folic Acid) 1 mg PO DAILY [facility] Last Admin: 09/07/17 10:29 Dose: 1 mg Heparin Sodium (Porcine) (Heparin) 5,000 units SC Q12 [facility] PRN Reason: Protocol Last Admin: 09/07/17 10:30 Dose: 5,000 units Lactated Ringer's (Lactated Ringer's) 1,000 mls @ 150 mls/hr IV .[id number] [facility] Last Admin: 09/07/17 10:39 Dose: 150 mls/hr Iron Sucrose 200 mg/ Sodium (Chloride) 110 mls @ 110 mls/hr IVPB DAILY [facility] Stop: 09/08/17 10:59 Last Admin: 09/07/17 10:31 Dose: 110 mls/hr Meropenem 500 mg/ Sodium (Chloride) 100 mls @ 100 mls/hr IVPB Q12 [facility] PRN Reason: Protocol Stop: 09/15/17 22:01 Last Admin: 09/07/17 10:31 Dose: 100 mls/hr Insulin Human Lispro (Humalog Med) 0 units SC ACHS [facility] PRN Reason: Protocol Last Admin: 09/07/17 12:21 Dose: 1 units Levalbuterol HCl (Xopenex) 0.63 mg IH [id number] [facility] Last Admin: 09/07/17 13:20 Dose: Not Given Metoprolol Tartrate (Lopressor) 50 mg PO BID [facility] Last Admin: 09/07/17 10:29 Dose: 50 mg Polyethylene Glycol (Miralax) 17 gm PO DAILY [facility] Last Admin: 09/07/17 10:28 Dose: 17 gm Risperidone (Risperdal Tab) 1 mg PO DAILY [facility] PRN Reason: Protocol Last Admin: 09/07/17 10:29 Dose: 1 mg Tamsulosin HCl (Flomax) 0.4 mg PO DAILY [facility] Last Admin: 09/07/17 10:29 Dose: 0.4 mg Physical Exam - Constitutional Appears: Well, Non-toxic, No Acute Distress - Extremities Exam Additional comments: Bilateral LE exam: VASC: DP/PT pulses are very faintly palpable bilaterally, Cap refill time: < 3 sec to all digits, Temp gradient: cool to cool from proximal to distal, +1 pitting edema noted on the dorsum of the foot b/l DERM: no open lesions, no interdigital maceration, hyperkeratotic skin build-up diffusly on the plantar foot b/l, no clinical suspicion of active infection from LE NEURO: Protective sensation mildly diminished ORTHO: No pain during passive ROM at the ankle joint 1st ray and MTPJ; no pain during calf squeeze bilaterally - Neurological Exam Neurological exam: Alert, Oriented x3 - Psychiatric Exam Psychiatric exam: Normal Affect, Normal Mood Results - Vital Signs Recent Vital Signs: Last Vital Signs Temp 96.8 F L 09/07/17 07:46 Pulse 83 09/07/17 10:29 Resp 20 09/07/17 07:46 BP 130/70 09/07/17 10:29 Pulse Ox 97 09/07/17 07:46 - Labs Result Diagrams: 09/07/17 07:40 09/07/17 07:40 Labs: Laboratory Results - last 24 hr 09/06/17 09/06/17 09/07/17 09:00 21:32 07:13 WBC RBC Hgb Hct MCV MCH MCHC RDW Plt Count MPV PT INR Sodium Potassium Chloride Carbon Dioxide Anion Gap BUN Creatinine Est GFR ( Amer) Est GFR (Non-Af Amer) POC Glucose (mg/dL) 199 H 174 H Random Glucose Calcium Phosphorus Magnesium Total Bilirubin Direct Bilirubin AST ALT Alkaline Phosphatase Total Protein Albumin Globulin Albumin/Globulin Ratio Prostate Specific Ag 25-OH Vitamin D Total Procalcitonin 16.56 H Free T4 Thyroxine (T4) TSH 3rd Generation Hep Bs Antigen Hepatitis C Antibody 02/12/18 02/12/18 02/12/18 07:40 07:40 07:40 WBC 21.1 H RBC 3.22 L Hgb 9.5 L Hct 28.6 L MCV 88.8 MCH 29.5 MCHC 33.2 RDW 15.2 H Plt Count 305 MPV 8.8 PT 22.4 H INR 1.92 H Sodium Potassium Chloride Carbon Dioxide Anion Gap BUN Creatinine Est GFR ( Amer) Est GFR (Non-Af Amer) POC Glucose (mg/dL) Random Glucose Calcium Phosphorus Magnesium Total Bilirubin Direct Bilirubin AST ALT Alkaline Phosphatase Total Protein Albumin Globulin Albumin/Globulin Ratio Prostate Specific Ag 25-OH Vitamin D Total Procalcitonin Free T4 Thyroxine (T4) TSH 3rd Generation Hep Bs Antigen Negative Hepatitis C Antibody Negative 09/07/17 09/07/17 09/07/17 07:40 07:40 07:40 WBC RBC Hgb Hct MCV MCH MCHC RDW Plt Count MPV PT INR Sodium 138 Potassium 4.1 Chloride 106 Carbon Dioxide 21 Anion Gap 15 BUN 68 H Creatinine 3.2 H Est GFR ( Amer) 23 Est GFR (Non-Af Amer) 19 POC Glucose (mg/dL) Random Glucose 179 H Calcium 8.1 L Phosphorus 4.8 H Magnesium 2.2 Total Bilirubin 1.3 Direct Bilirubin 1.3 H AST 93 H ALT 86 H Alkaline Phosphatase 168 H Total Protein 5.9 Albumin 2.3 L Globulin 3.6 Albumin/Globulin Ratio 0.6 L Prostate Specific Ag 15.0 H 25-OH Vitamin D Total Procalcitonin Free T4 1.94 Thyroxine (T4) 4.4 L TSH 3rd Generation 1.09 Hep Bs Antigen Hepatitis C Antibody 09/07/17 09/07/17 07:40 11:24 WBC RBC Hgb Hct MCV MCH MCHC RDW Plt Count MPV PT INR Sodium Potassium Chloride Carbon Dioxide Anion Gap BUN Creatinine Est GFR ( Amer) Est GFR (Non-Af Amer) POC Glucose (mg/dL) 183 H Random Glucose Calcium Phosphorus Magnesium Total Bilirubin Direct Bilirubin AST ALT Alkaline Phosphatase Total Protein Albumin Globulin Albumin/Globulin Ratio Prostate Specific Ag 25-OH Vitamin D Total 39.3 Procalcitonin Free T4 Thyroxine (T4) TSH 3rd Generation Hep Bs Antigen Hepatitis C Antibody Assessment & Plan - Assessment and Plan (Free Text) Assessment: 76 year old male patient with PMHx of DM2, HTN, unspecified dementia, vision loss, UTI's and dysphagia was evaluated for bilateral lower extremity exam Plan: Patient seen and evaluated Patient discussed in details with attending Dr. Rahman Labs, vitals and charts reviewed No active source of infection from the bilateral lower extremity Aseptic debridement of nails using sterile nipper with no acute incident - tolerated well Lac-hydrine lotion ordered - apply to bilateral feet daily Multipodus boots ordered - to be worn at all times while in bed Patient is stable from podiatry standpoint Thank you for the podiatry consult - please re-consult as needed - Date & Time Date: 09/07/17 Time: 15:23 <Leona Rahman - Last Filed: 09/13/17 15:26> Meds - Medications Medications: Current Medications Acetaminophen (Tylenol 325mg Tab) 650 mg PO Q4 PRN PRN Reason: FOR TEMP>=99.5F Acetaminophen (Tylenol 650 Mg Supp) 650 mg RC Q4H PRN PRN Reason: FEVER>=99.5F Acetylcysteine (Acetylcysteine 20%) 4 ml IH [id number] [facility] Last Admin: 09/13/17 09:54 Dose: 4 ml Apixaban (Eliquis) 2.5 mg PO BID [facility] PRN Reason: Protocol Last Admin: 09/13/17 10:25 Dose: 2.5 mg Aspirin (Ecotrin) 81 mg PO DAILY [facility] Last Admin: 09/13/17 10:24 Dose: 81 mg Docusate Sodium (Colace) 200 mg PO QPM [facility] Last Admin: 09/12/17 19:16 Dose: Not Given Donepezil HCl (Aricept) 10 mg PO HS [facility] Last Admin: 09/12/17 21:58 Dose: 10 mg Ergocalciferol (Drisdol 50,000 Intl Units Cap) 1 cap PO MON [facility] Last Admin: 09/07/17 10:29 Dose: 1 cap Famotidine (Pepcid) 20 mg PO DAILY [facility] Last Admin: 09/13/17 10:24 Dose: 20 mg Folic Acid (Folic Acid) 1 mg PO DAILY [facility] Last Admin: 09/13/17 10:24 Dose: 1 mg Ceftriaxone Sodium (Rocephin 2 Gm Ivpb) 2 gm in 100 mls @ 100 mls/hr IVPB DAILY [facility] PRN Reason: Protocol Stop: 10/08/17 10:01 Last Admin: 09/13/17 10:25 Dose: 100 mls/hr Lactated Ringer's (Lactated Ringer's) 1,000 mls @ 80 mls/hr IV .[id number] [facility] Last Admin: 09/12/17 11:50 Dose: 80 mls/hr Insulin Human Lispro (Humalog Med) 0 units SC ACHS [facility] PRN Reason: Protocol Last Admin: 09/13/17 12:02 Dose: 1 units Lactic Acid (Lac-Hydrin 12% Lotion (225 G)) 0 gm EXT DAILY [facility] Last Admin: 09/13/17 10:26 Dose: 1 applic Levalbuterol HCl (Xopenex) 0.63 mg IH [id number] [facility] Last Admin: 09/13/17 09:54 Dose: 0.63 mg Metoprolol Tartrate (Lopressor) 50 mg PO BID [facility] Last Admin: 09/13/17 10:25 Dose: 50 mg Polyethylene Glycol (Miralax) 17 gm PO DAILY [facility] Last Admin: 09/13/17 10:25 Dose: 17 gm Polysaccharide Iron Complex (Ferrex-150) 150 mg PO DAILY [facility] Last Admin: 09/13/17 10:24 Dose: 150 mg Risperidone (Risperdal Tab) 1 mg PO DAILY [facility] PRN Reason: Protocol Last Admin: 09/13/17 10:24 Dose: 1 mg Tamsulosin HCl (Flomax) 0.4 mg PO DAILY [facility] Last Admin: 09/13/17 10:24 Dose: 0.4 mg Results - Vital Signs Recent Vital Signs: Last Vital Signs Temp 98.0 F 09/13/17 08:00 Pulse 61 09/13/17 10:25 Resp 20 09/13/17 08:00 BP 112/60 09/13/17 10:25 Pulse Ox 100 09/13/17 08:00 - Labs Result Diagrams: 09/13/17 05:00 09/13/17 05:00 Labs: Laboratory Results - last 24 hr 09/12/17 09/12/17 09/12/17 16:42 18:30 21:20 WBC RBC Hgb Hct MCV MCH MCHC RDW Plt Count MPV Sodium Potassium Chloride Carbon Dioxide Anion Gap BUN Creatinine Est GFR ( Amer) Est GFR (Non-Af Amer) POC Glucose (mg/dL) 156 H 181 H Random Glucose Calcium Phosphorus Magnesium Total Bilirubin Direct Bilirubin AST ALT Alkaline Phosphatase Total Protein Albumin Globulin Albumin/Globulin Ratio Blood Type B NEGATIVE Antibody Screen Negative Crossmatch See Detail BBK History Checked Patient has bt 09/13/17 09/13/17 09/13/17 05:00 05:00 07:18 WBC 12.7 H RBC 3.32 L Hgb 10.1 L Hct 30.1 L MCV 90.7 MCH 30.4 MCHC 33.6 RDW 15.1 H Plt Count 243 MPV 9.3 Sodium 138 Potassium 4.0 Chloride 108 H Carbon Dioxide 21 Anion Gap 13 BUN 64 H Creatinine 2.6 H Est GFR ( Amer) 29 Est GFR (Non-Af Amer) 24 POC Glucose (mg/dL) 147 H Random Glucose 160 H Calcium 8.3 L Phosphorus 4.1 Magnesium 2.2 Total Bilirubin 0.2 Direct Bilirubin 0.2 AST 17 D ALT 33 Alkaline Phosphatase 81 Total Protein 4.9 L Albumin 2.2 L Globulin 2.7 Albumin/Globulin Ratio 0.8 L Blood Type Antibody Screen Crossmatch BBK History Checked 09/13/17 11:10 WBC RBC Hgb Hct MCV MCH MCHC RDW Plt Count MPV Sodium Potassium Chloride Carbon Dioxide Anion Gap BUN Creatinine Est GFR ( Amer) Est GFR (Non-Af Amer) POC Glucose (mg/dL) 180 H Random Glucose Calcium Phosphorus Magnesium Total Bilirubin Direct Bilirubin AST ALT Alkaline Phosphatase Total Protein Albumin Globulin Albumin/Globulin Ratio Blood Type Antibody Screen Crossmatch BBK History Checked Attending/Attestation - Attestation I have personally seen and examined this patient.: Yes I have fully participated in the care of the patient.: Yes I have reviewed all pertinent clinical information: Yes
[2017-09-07 16:01] LABS: HEPATITIS A IGM NEGATIVE (NEGATIVE); HEPATITIS B CORE AB NEGATIVE (NEGATIVE)
--- NOTE | 2017-09-07 17:31 | US ---
HISTORY: Arm pain and swelling. Evaluate for deep venous thrombosis. PHYSICIAN(S): Eliazar Cardona MD. FINDINGS: There is acute hypoechoic adherent partially occlusive thrombus in the left subclavian vein. There is adherent nonocclusive thrombus noted in the right basilic vein above the elbow. IMPRESSION: 1. Left subclavian vein DVT 2. Right basilic vein superficial thrombophlebitis.
--- NOTE | 2017-09-07 17:33 | US ---
HISTORY: Leg pain and swelling. Evaluate for DVT PHYSICIAN(S): Eliazar Cardona MD. TECHNIQUE: Duplex sonography and color-flow Doppler with graded compression were used to evaluate the deep venous systems of both lower extremities. FINDINGS: The exam is extremely limited by the patient's position inability to cooperate. The right lower extremity could not be evaluated. The left tibial veins could not be evaluated. The visualized deep venous system of the left lower extremity is sonographically normal and compressible. No evidence of DVT is appreciated. IMPRESSION: No sonographic evidence for deep venous thrombosis the visualized segments of the left lower extremity. The right lower extremity could not be evaluated.
--- NOTE | 2017-09-07 17:34 | NM ---
PROCEDURE: Whole Body Bone Scan HISTORY: osteomyelitis of spine COMPARISON: 09/05/2017 CT thorax abdomen and pelvis. Summary of findings on the comparison examination: Sacral decubitus ulcer with sacral coccygeal osteomyelitis TECHNIQUE: Following administration of 24.2 miCu of Tc MDP multiplanar whole body images were obtained. FINDINGS: Evidence for bony metastatic disease: None. Degenerative uptake: Increased uptake in the right hip consistent was dislocated bipolar components of right DEZ. Increased uptake proximal left femur. Sternoclavicular degenerative changes on the right. Physiologic uptake: Normal physiologic activity in the kidneys. Other findings: None. IMPRESSION: Degenerative changes, posttraumatic changes primarily in the pelvis. Static bone scan is an insensitive, i.e. imprecise imaging modality in the assessment of osteomyelitis/ cycle osteomyelitis.
[2017-09-07] MEDS ORDERED: Heparin25000 units/250ml 1/2NS 25,000 UNITS/250 ML BAG IV PRN (20:10)
--- NOTE | 2017-09-07 20:12 | CP.PCM.PN ---
Subjective - Date & Time of Evaluation Date of Evaluation: 09/07/17 Time of Evaluation: 11:10 - Subjective Subjective: No fevers, not in distress. Objective - Vital Signs/Intake and Output Vital Signs (last 24 hours): Temp Pulse Resp BP Pulse Ox 96.8 F L 83 20 130/70 97 09/07/17 07:46 09/07/17 07:46 09/07/17 07:46 09/07/17 07:46 09/07/17 07:46 Intake and Output: 09/07/17 09/07/17 06:59 18:59 Intake Total 360 Output Total 225 Balance 135 - Medications Medications: Current Medications Acetaminophen (Tylenol 325mg Tab) 650 mg PO Q4 PRN PRN Reason: FOR TEMP>=99.5F Acetaminophen (Tylenol 650 Mg Supp) 650 mg RC Q4H PRN PRN Reason: FEVER>=99.5F Acetylcysteine (Acetylcysteine 20%) 4 ml IH [id number] [facility] Last Admin: 09/07/17 07:32 Dose: 4 ml Aspirin (Ecotrin) 81 mg PO DAILY [facility] Last Admin: 09/06/17 12:18 Dose: 81 mg Docusate Sodium (Colace) 200 mg PO QPM [facility] Last Admin: 09/06/17 19:00 Dose: Not Given Donepezil HCl (Aricept) 10 mg PO HS [facility] Last Admin: 09/06/17 22:52 Dose: 10 mg Ergocalciferol (Drisdol 50,000 Intl Units Cap) 1 cap PO MON [facility] Famotidine (Pepcid) 20 mg PO DAILY [facility] Last Admin: 09/06/17 12:18 Dose: 20 mg Folic Acid (Folic Acid) 1 mg PO DAILY [facility] Last Admin: 09/06/17 12:18 Dose: 1 mg Heparin Sodium (Porcine) (Heparin) 5,000 units SC Q12 [facility] PRN Reason: Protocol Last Admin: 09/06/17 22:50 Dose: 5,000 units Lactated Ringer's (Lactated Ringer's) 1,000 mls @ 150 mls/hr IV .Q6H40M [facility] Last Admin: 09/07/17 02:13 Dose: 150 mls/hr Iron Sucrose 200 mg/ Sodium (Chloride) 110 mls @ 110 mls/hr IVPB DAILY [facility] Stop: 09/08/17 10:59 Last Admin: 09/06/17 17:22 Dose: 110 mls/hr Meropenem 500 mg/ Sodium (Chloride) 100 mls @ 100 mls/hr IVPB Q12 [facility] PRN Reason: Protocol Stop: 09/15/17 22:01 Insulin Human Lispro (Humalog Med) 0 units SC ACHS [facility] PRN Reason: Protocol Last Admin: 09/07/17 08:11 Dose: 1 units Levalbuterol HCl (Xopenex) 0.63 mg IH [id number] [facility] Last Admin: 09/07/17 07:32 Dose: 0.63 mg Metoprolol Tartrate (Lopressor) 50 mg PO BID [facility] Last Admin: 09/06/17 19:02 Dose: 50 mg Polyethylene Glycol (Miralax) 17 gm PO DAILY [facility] Last Admin: 09/06/17 12:20 Dose: Not Given Risperidone (Risperdal Tab) 1 mg PO DAILY [facility] PRN Reason: Protocol Last Admin: 09/06/17 12:19 Dose: 1 mg Tamsulosin HCl (Flomax) 0.4 mg PO DAILY [facility] Last Admin: 09/06/17 12:17 Dose: 0.4 mg - Labs Labs: 09/07/17 07:40 09/07/17 07:40 PT 22.4 SECONDS (9.4-12.5) H 09/07/17 07:40 INR 1.92 (0.93-1.08) H 09/07/17 07:40 APTT 29.4 Seconds (25.1-36.5) 09/05/17 18:00 - Constitutional Appears: Chronically Ill - Head Exam Head Exam: NORMAL INSPECTION - Neck Exam Neck Exam: absent: Meningismus - Respiratory Exam Respiratory Exam: Decreased Breath Sounds - Cardiovascular Exam Cardiovascular Exam: +S1, +S2 - GI/Abdominal Exam GI & Abdominal Exam: Soft. absent: Tenderness Assessment and Plan - Assessment and Plan (Free Text) Plan: Assessment severe sepsis due to gram negative bacilli bacteremia, consider due to UTI, consider sacral osteomyelitis with skin and soft tissue infection history of sepsis due to bilateral HCAP and UTI with ESBL-producing Klebsiella history of right hip femoral neck fracture S/P hemiarthroplasty DM HTN obesity with BMI 33 Plan continue Merrem pending identification and sensitivities of the gram negative bacilli in the blood reviewed CT C/A/P and bone scan - bone scan equivocal but CT scan showing probable osteomyelitis with questionable extension into the spine, would recommend MRI for better imaging; follow up Surgery evaluation will monitor clinically
--- NOTE | 2017-09-07 20:50 | CP.PCM.CON ---
History of Present Illness - History of Present Illness History of Present Illness: 76 year old male with a history of dementia, visual disturbance, DM, HTN, [facility] and [facility], found to have likely sacral osteomyelitis by CT, with anemia, leukocytosis, and left subclavian DVT. The patient is not a good historian and details are from the chart. He did receive PRBC transfusion. An ultrasound of of the left upper extremity revealed a partially occlusive subclavian DVT and right basilic vein thrombus (superficial vein). Past medical, surgical, family, social history cannot be obtained from the patient. Allergies: NKA per documentation Review of systems cannot be obtained. Past Patient History - Infectious Disease Hx of Infectious Diseases: None - Tetanus Immunizations Tetanus Immunization: Unknown - Past Medical History & Family History Past Medical History?: Yes - Past Social History Smoking Status: Never Smoked - CARDIAC Hx Hypertension: Yes Hx Pacemaker: No - PULMONARY Hx Respiratory Disorders: No - NEUROLOGICAL Hx Dementia: Yes (as per SD chart) Hx Seizures: Yes - HEENT Hx Blind: Yes (vision loss; extent could not be assessed due to AMS) - RENAL Hx Chronic Kidney Disease: No - ENDOCRINE/METABOLIC Hx Diabetes Mellitus Type 2: Yes - HEMATOLOGICAL/ONCOLOGICAL Hx Anemia: Yes - INTEGUMENTARY Hx Dermatological Problems: No - MUSCULOSKELETAL/RHEUMATOLOGICAL Hx Musculoskeletal Disorders: Yes Hx Falls: Yes Hx Fractures: Yes - GASTROINTESTINAL Hx Gastrointestinal Disorders: No - GENITOURINARY/GYNECOLOGICAL Hx Prostate Problems: Yes (BPH) - PSYCHIATRIC Hx Emotional Abuse: No Hx Physical Abuse: No Hx Schizophrenia: Yes (as per SD chart; unspecified) Hx Substance Use: No - SURGICAL HISTORY Hx Surgeries: Yes Hx Orthopedic Surgery: Yes (R DEZ) - ANESTHESIA Hx Anesthesia Reactions: No Hx Malignant Hyperthermia: No Meds Allergies/Adverse Reactions: Allergies Allergy/AdvReac Type Severity Reaction Status Date / Time No Known Allergies Allergy Verified 05/15/17 19:57 - Medications Medications: Current Medications Acetaminophen (Tylenol 325mg Tab) 650 mg PO Q4 PRN PRN Reason: FOR TEMP>=99.5F Acetaminophen (Tylenol 650 Mg Supp) 650 mg RC Q4H PRN PRN Reason: FEVER>=99.5F Acetylcysteine (Acetylcysteine 20%) 4 ml IH [id number] [facility] Last Admin: 09/07/17 20:04 Dose: Not Given Aspirin (Ecotrin) 81 mg PO DAILY [facility] Last Admin: 09/07/17 10:29 Dose: 81 mg Docusate Sodium (Colace) 200 mg PO QPM [facility] Last Admin: 09/07/17 18:11 Dose: 200 mg Donepezil HCl (Aricept) 10 mg PO HS [facility] Last Admin: 09/06/17 22:52 Dose: 10 mg Ergocalciferol (Drisdol 50,000 Intl Units Cap) 1 cap PO MON [facility] Last Admin: 09/07/17 10:29 Dose: 1 cap Famotidine (Pepcid) 20 mg PO DAILY [facility] Last Admin: 09/07/17 10:29 Dose: 20 mg Folic Acid (Folic Acid) 1 mg PO DAILY [facility] Last Admin: 09/07/17 10:29 Dose: 1 mg Lactated Ringer's (Lactated Ringer's) 1,000 mls @ 150 mls/hr IV .[id number] [facility] Last Admin: 09/07/17 10:39 Dose: 150 mls/hr Meropenem 500 mg/ Sodium (Chloride) 100 mls @ 100 mls/hr IVPB Q12 [facility] PRN Reason: Protocol Stop: 09/15/17 22:01 Last Admin: 09/07/17 10:31 Dose: 100 mls/hr Heparin Sodium/Sodium Chloride (Heparin 59830 Units/250ml 1/2 Normal Saline) 25 ,000 units in 250 mls @ 18.779 mls/hr IV .[id number] PRN; Protocol; 18 UNITS/KG/HR PRN Reason: ADJUST RATE PER PROTOCOL Insulin Human Lispro (Humalog Med) 0 units SC ACHS [facility] PRN Reason: Protocol Last Admin: 09/07/17 17:00 Dose: 1 units Lactic Acid (Lac-Hydrin 12% Lotion (225 G)) 0 gm EXT DAILY [facility] Levalbuterol HCl (Xopenex) 0.63 mg IH [id number] [facility] Last Admin: 09/07/17 20:04 Dose: Not Given Metoprolol Tartrate (Lopressor) 50 mg PO BID [facility] Last Admin: 09/07/17 18:12 Dose: 50 mg Phytonadione (Vitamin K Tab) 10 mg PO ONCE ONE Stop: 09/07/17 20:21 Polyethylene Glycol (Miralax) 17 gm PO DAILY [facility] Last Admin: 09/07/17 10:28 Dose: 17 gm Risperidone (Risperdal Tab) 1 mg PO DAILY [facility] PRN Reason: Protocol Last Admin: 09/07/17 10:29 Dose: 1 mg Tamsulosin HCl (Flomax) 0.4 mg PO DAILY [facility] Last Admin: 09/07/17 10:29 Dose: 0.4 mg Physical Exam - Head Exam Head Exam: ATRAUMATIC - Eye Exam Eye Exam: Normal appearance - ENT Exam ENT Exam: Mucous Membranes Dry - Respiratory Exam Respiratory Exam: NORMAL BREATHING PATTERN - Cardiovascular Exam Cardiovascular Exam: +S1, +S2 - GI/Abdominal Exam GI & Abdominal Exam: Normal Bowel Sounds Results - Vital Signs Recent Vital Signs: Last Vital Signs Temp 98.1 F 09/07/17 16:00 Pulse 72 09/07/17 18:12 Resp 20 09/07/17 16:00 BP 138/95 H 09/07/17 18:12 Pulse Ox 100 09/07/17 16:00 - Labs Result Diagrams: 09/07/17 07:40 09/07/17 07:40 Labs: Laboratory Results - last 24 hr 09/06/17 09/07/17 09/07/17 21:32 07:13 07:40 WBC RBC Hgb Hct MCV MCH MCHC RDW Plt Count MPV PT INR Sodium Potassium Chloride Carbon Dioxide Anion Gap BUN Creatinine Est GFR ( Amer) Est GFR (Non-Af Amer) POC Glucose (mg/dL) 199 H 174 H Random Glucose Calcium Phosphorus Magnesium Total Bilirubin Direct Bilirubin AST ALT Alkaline Phosphatase Total Protein Albumin Globulin Albumin/Globulin Ratio Prostate Specific Ag 25-OH Vitamin D Total Free T4 Thyroxine (T4) TSH 3rd Generation Hepatitis A IgM Ab Negative Hep Bs Antigen Negative Hep B Core IgM Ab Negative Hepatitis C Antibody Negative 09/07/17 09/07/17 09/07/17 07:40 07:40 07:40 WBC 21.1 H RBC 3.22 L Hgb 9.5 L Hct 28.6 L MCV 88.8 MCH 29.5 MCHC 33.2 RDW 15.2 H Plt Count 305 MPV 8.8 PT 22.4 H INR 1.92 H Sodium 138 Potassium 4.1 Chloride 106 Carbon Dioxide 21 Anion Gap 15 BUN 68 H Creatinine 3.2 H Est GFR ( Amer) 23 Est GFR (Non-Af Amer) 19 POC Glucose (mg/dL) Random Glucose 179 H Calcium 8.1 L Phosphorus Magnesium Total Bilirubin 1.3 Direct Bilirubin 1.3 H AST 93 H ALT 86 H Alkaline Phosphatase 168 H Total Protein 5.9 Albumin 2.3 L Globulin 3.6 Albumin/Globulin Ratio 0.6 L Prostate Specific Ag 25-OH Vitamin D Total Free T4 Thyroxine (T4) TSH 3rd Generation Hepatitis A IgM Ab Hep Bs Antigen Hep B Core IgM Ab Hepatitis C Antibody 09/07/17 09/07/17 09/07/17 07:40 07:40 07:40 WBC RBC Hgb Hct MCV MCH MCHC RDW Plt Count MPV PT INR Sodium Potassium Chloride Carbon Dioxide Anion Gap BUN Creatinine Est GFR ( Amer) Est GFR (Non-Af Amer) POC Glucose (mg/dL) Random Glucose Calcium Phosphorus 4.8 H Magnesium 2.2 Total Bilirubin Direct Bilirubin AST ALT Alkaline Phosphatase Total Protein Albumin Globulin Albumin/Globulin Ratio Prostate Specific Ag 15.0 H 25-OH Vitamin D Total 39.3 Free T4 1.94 Thyroxine (T4) 4.4 L TSH 3rd Generation 1.09 Hepatitis A IgM Ab Hep Bs Antigen Hep B Core IgM Ab Hepatitis C Antibody 09/07/17 09/07/17 11:24 17:14 WBC RBC Hgb Hct MCV MCH MCHC RDW Plt Count MPV PT INR Sodium Potassium Chloride Carbon Dioxide Anion Gap BUN Creatinine Est GFR ( Amer) Est GFR (Non-Af Amer) POC Glucose (mg/dL) 183 H 186 H Random Glucose Calcium Phosphorus Magnesium Total Bilirubin Direct Bilirubin AST ALT Alkaline Phosphatase Total Protein Albumin Globulin Albumin/Globulin Ratio Prostate Specific Ag 25-OH Vitamin D Total Free T4 Thyroxine (T4) TSH 3rd Generation Hepatitis A IgM Ab Hep Bs Antigen Hep B Core IgM Ab Hepatitis C Antibody Assessment & Plan (1) Deep vein thrombosis Assessment and Plan: left subclavian DVT ? provoked from immobility ? past IV access ?occult malignancy (elevated PSA) will start heparin drip while awaiting surgical evaluation ? sacral wound debridement if no surgical intervention, okay to start Eliquis for a duration of 3 months Status: Acute (2) Coagulopathy Assessment and Plan: likely nutritional will give vitamin k which should correct PT/INR while on heparin drip Status: Acute (3) Anemia Assessment and Plan: work up consistent with anemia of chronic disease from sacral infection; will give a dose of procrit Status: Acute (4) Leukocytosis Assessment and Plan: neutrophilia on antibiotics WBC normal in 04/2017 Thank you for this interesting consult. Status: Acute
--- NOTE | 2017-09-08 00:22 | CON ---
DATE: 09/07/2017 REASON FOR CONSULTATION: Acute kidney injury, altered mental status, UTI. HISTORY OF PRESENTING ILLNESS: A 76-year-old male, known to me from prior evaluation. The patient brought to the hospital from the [facility] because of altered mental status. Poor urine output. The patient has an indwelling Mckeon catheter. He has a history of ESBL Klebsiella UTI in 04/2017. He was found to be poorly responsive and had a fever. Hence was brought to the emergency room. The patient has had ultrasounds of his upper extremities and his lower extremities. He is found to have DVT of his upper extremity. He is now on a heparin drip. He was also found to have elevated BUN and creatinine. His creatinine was 2.9 at the time of admission. Today's creatinine is 3.2. Hence consultation is requested for acute kidney injury. The patient had a Mckeon changed. After the Mckeon has been changed, he is urinating. PAST MEDICAL AND SURGICAL HISTORY: NIDDM, hypertension, CAD, UTI, BPH, bipolar disorder. FAMILY HISTORY: Noncontributory. SOCIAL HISTORY: No smoking, no alcohol use, no IV drug abuse. ALLERGIES: NO KNOWN DRUG ALLERGIES. MEDICATIONS: In the [facility] included Flomax, Risperdal, Lopressor 50 b.i.d., insulin, Lasix 40 IV q. 12, folic acid, Pepcid, Aricept, aspirin, Pro-Stat, Colace. REVIEW OF SYSTEMS: Unavailable as the patient is unable to cooperate. PHYSICAL EXAMINATION: GENERAL: Elderly male, lying in bed, confused, VITAL SIGNS: Blood pressure 130/70, heart rate 83, respiratory rate 20, temperature 96.8. HEENT: Normocephalic, atraumatic, positive pallor. NECK: Supple, no JVD. LUNGS: Bilateral equal entry, bilateral equal expansion. CARDIAC: S1 and S2, regular rate and rhythm, no murmur, no rub. ABDOMEN: Soft, nondistended, nontender, bowel sounds present. EXTREMITIES: No lower extremity edema, dry skin, superficial ulcers. INTAKE AND OUTPUT: 1145/225. LABORATORY DATA: WBC 21, hemoglobin 9.5, hematocrit 29, platelets 201,305. Sodium 138, potassium 4.1, chloride 106, CO2 of 21, BUN 68, creatinine 3.2, glucose 179, hemoglobin A1c 6.7, uric acid 10.4, calcium 8.1, phosphorus 4.8, magnesium 2.2, total bili 1.3, direct bili 1.3, albumin 2.3, PSA 15, TSH 1.0. Urinalysis: Yellow, cloudy, pH 6.5, specific gravity 1.025, protein 100, ketones trace, blood large, leukocyte esterase large. Blood culture gram-negative tejal. Urine culture, multiple species. CT of the abdomen and chest and pelvis: Sacral decubitus ulcer with sacrococcygeal osteomyelitis [id number] anasarca. CURRENT MEDICATIONS: Mucomyst, Aricept, Colace, Drisdol, Ecotrin, Flomax, folic acid, heparin, insulin, iron sucrose, lactated Ringer at 150, Lopressor, meropenem, MiraLax, Pepcid, Risperdal, Tylenol. ASSESSMENT: 1. 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 2. Sepsis/leukocytosis/altered mental status, source likely to be genitourinary. 3. Infected sacral ulcer/osteomyelitis. 4. Deep venous thrombosis. 5. Severe anemia. PLAN 1. IV fluid resuscitation. 2. Discontinue IV iron since the patient has severe infection at this time. 3. Monitor fingersticks and continue insulin coverage. 4. Continue antibiotics as per ID recommendations, the dose for creatinine clearance about 30 mL/minute. 5. Daily labs. Thank you for the courtesy of this consultation. We will follow this patient with you. Brunilda Argueta MD
[2017-09-08] MEDS: Levalbuterol 0.63 MG/3 ML Inhal Soln UD IH SCH ×4 (01:45→19:52)
[2017-09-08] MEDS: Acetylcysteine 20% Inhal Soln (4ml) IH SCH ×4 (01:45→19:52)
--- NOTE | 2017-09-08 05:58 | PN ---
DATE: 09/07/2017 LOCATION: Patient is seen in room 575, bed 1. SUBJECTIVE: Patient is lying in the bed. Patient is arousable to verbal stimuli. Overnight nurse's notes were reviewed. Patient slept well. Patient was lying in the bed. Patient has flexion contractures of the upper and lower extremity. PHYSICAL EXAMINATION: VITAL SIGNS: T-max 97.6 to 98.6, heart rate 72, 83, 86. Blood pressure one in the last 24 hours 116/71, 126/81, 130/70. Respirations 20, O2 sat 99% to 100%. Yesterday's output 360. Today's output is 225. HEENT: Patient's head examination, normocephalic, atraumatic. HEENT examination shows positive blindness. Pinkish pale conjunctivae. Anicteric sclerae. No oropharyngeal lesion. NECK: No neck rigidity. CHEST: Kyphosis. LUNGS: Shows no rales, crackles or wheezing. Occasional rhonchi, upper lung quiros, anteriorly. CARDIOVASCULAR: Shows S1, S2, regular rhythm. Positive systolic murmur, left sternal border, right second intercostal space, left second intercostal space. ABDOMEN: Slightly protuberant. Positive bowel sound. GENITALIA: Male. Positive Mckeon catheter. EXTREMITIES: Show positive surgical scar of the right hip area. Positive flexion contractures of upper and lower extremity. MUSCULOSKELETAL: Shows a body mass index of 35. NEUROLOGIC: Patient is alert, awake, responsive. Lying in the bed with flexion contractures. DIAGNOSTICS: On 09/07, WBC 21.1, hemoglobin/hematocrit 9.5/28.6, platelet 305. ESR 136. PT/INR 22.4, INR 1.9. Fingerstick blood sugar 198, 186, 183. Sodium 138, potassium 4.1, chloride 106, CO2 of 21, anion gap 15, BUN 68, creatinine 3.2, GFR 23, glucose 179, calcium 8.1, hemoglobin A1c is 6.7 which is very well-controlled. Phosphorus 4.8, magnesium 2.2, total bili 1.3, direct bili 1.3, AST 93, ALT 86, alk phos 168, albumin 2.3. PSA is 15. Procalcitonin level 15.6. Hepatitis A, B, C serologies are negative. Blood cultures, Gram-negative tejal from 02/10.. Urine culture, greater than 100,000 mixed species and repeat urine on 09/06, 50,000 to 100,000 mixed species. Repeat blood cultures from 09/06 negative. Sacral wound cultures pending. Patient's bone scan, venous Doppler of the lower and upper extremities were reviewed. IMPRESSION AND PLAN: 1. Gram-negative tejal bacteremia and sepsis. 2. Questionable urinary tract infection secondary to multiple urinary tract species. 3. Hypertension. 4. Severe gait dysfunction and deconditioning and bedridden status and possible functional quadriplegia. 5. Leukocytosis with granulocytosis and bandemia. 6. Normocytic anemia. 7. Elevated erythrocyte sedimentation rate of 136. 8. Elevated reticulocyte count of 1.69. 9. Visual impairment. 10. Mild coagulopathy. 11. Acute kidney injury and acute renal failure. 12. Well-controlled insulin-requiring diabetes mellitus with hemoglobin A1c of 6.7. 13. Iron-deficiency anemia. 14. Transaminitis. 15. Hypoalbuminemia. 16. Hyperuricemia. 17. Hyperbilirubinemia. 18. Hyperprocalcitoninemia. 19. Proteinuria, ketonuria, microscopic hematuria, pyuria, bacteriuria. 20. B negative blood type. 21. Status post 2 units of packed red blood cells. 22. 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 23. Degenerative joint disease and increased uptake on the right hip consistent with dislocated right total hip. 24. Increased uptake of the left femur and degenerative joint disease of the right sternoclavicular joint. 25. Left subclavian vein deep venous thrombosis. 26. Left subclavian vein acute hypoechoic adherent partially occlusive thrombosis, provoked from immobility and possible IV access. 27. Right basilic vein adherent nonocclusive thrombosis. 28. Upper and lower extremity flexion contractures. 29. Cerebral cortical atrophy of the brain. 30. Bedridden status and functional quadriplegia. 31. Intracranial atherosclerotic disease. 32. Left mastoid partial opacification with mild mucosal sinus thickening of the sinuses. 33. Status post packed red blood cell transfusion x2. 34. Hypovitaminosis D. 35. Prostatic hypertrophy. 36. Urinary retention. 37. Elevated prostate-specific antigen of 15, questionable occult malignancy. 38. Anemia of chronic disease. 39. Sacral decubitus ulceration, stage 2. 40. Unspecified dementia. 41. Mild oropharyngeal dysphagia. 42. Mild oral dysphagia. 43. Altered mental status. 44. Flexion contractures of upper and lower extremity. 45. Toxic metabolic encephalopathy. 46. High grade fever. 47. Severe sepsis. 48. Questionable sacral coccygeal osteomyelitis with extension into the soft tissue and left paravertebral musculature with possible extension into the spine. 49. Constipation. 50. Prostatic hypertrophy with urinary retention. 1. High-grade fever. 2. Gram-negative tejal bacteremia and sepsis. 3. Stage II to III sacral decubitus ulceration. 4. Hypotension. 5. Leukocytosis with granulocytosis and bandemia. 6. Elevated erythrocyte sedimentation rate of 136. 7. Mild coagulopathy. 8. Acute kidney injury. 9. Insulin-requiring diabetes mellitus with hemoglobin A1c of 6.7. 10. Iron-deficiency anemia. 11. Transaminitis. 12. Hypoalbuminemia. 13. Severe gait dysfunction and bedridden status. 14. Sacral decubitus ulceration. 15. Hyperuricemia. 16. Hyperbilirubinemia. 17. Hyperprocalcitoninemia. 18. Proteinuria, microscopic hematuria, pyuria, bacteriuria. 19. Right femur dislocation from wainwright acetabulum. 20. 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 21. Bilateral hip joint effusion and heterotrophic ossification of the right hip joint and left hip joint. 22. Degenerative joint disease of the spine. 23. Posterior sacral coccyx erosion. 24. Colonic diverticulosis. 25. 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 26. [id number] anasarca. 27. Urinary retention. 28. Mucus plugging and bilateral atelectasis. 29. Interlobular septal thickening. 30. Coronary artery calcification. 31. Degenerative joint disease of spine. 32. Mild left gynecomastia. 33. Elevated left hemidiaphragm. 34. Questionable interstitial edema and anasarca. 35. Bilateral renal cyst. 36. Colonic diverticulosis. 37. Prostatomegaly. 38. Right hip arthroplasty with dislocation of the right hip joint and moderate heterotrophic ossification about the right hip joint. 39. Anasarca. 40. Bilateral perinephric stranding and bilateral renal cyst. 41. Cerebral cortical atrophy of the brain. 42. Periventricular subcortical white matter disease of the brain. 43. Atherosclerotic intracranial arterial disease. 44. Left mastoid partial opacification. 45. Gait dysfunction. 46. Severe deconditioning. 47. Insulin-requiring diabetes mellitus. 48. Anemia, etiology undetermined. 49. Iron-deficiency anemia, etiology undetermined. 50. Incomplete right bundle branch block, left anterior hemiblock, bifascicular block. 51. Mild oral dysphagia. 1. High-grade fever of greater than 103 degrees Fahrenheit. 2. Tachycardia. 3. Hypertension and hypotension. 4. Questionable and probable sepsis. 5. Leukocytosis with granulocytosis and bandemia. 6. Normocytic anemia with decreasing hemoglobin and hematocrit. 7. Mild coagulopathy. 8. Acute renal failure, acute kidney injury. 9. Hypoglycemia. 10. Hyperuricemia. 11. Iron-deficiency normocytic anemia. 12. Transaminitis. 13. Protein malnutrition and hypoalbuminemia. 14. Sepsis with urinary tract infection with proteinuria, ketonuria, microscopic hematuria, pyuria, bacteriuria. 15. History of right hip subcapital fracture open reduction and right hip hemiarthroplasty. History of right femoral neck right hip subcapital fracture, status post surgery. 16. Dementia. 17. Psychosis. 18. Visual impairment. 19. Normocytic anemia. 20. Severe gait dysfunction. 21. Severe deconditioning. 22. History of bifascicular block, right bundle-branch block, left anterior hemiblock. 23. Cerebral cortical atrophy of the brain with periventricular subcortical white matter ischemic disease of the brain. 24. Atherosclerotic intracranial arterial disease. 25. Altered mental status and toxic metabolic encephalopathy, probably secondary to sepsis secondary to urinary tract infection with high-grade fever. 26. Dehydration and hypotension. 27. Toxic metabolic encephalopathy. 28. Anemia with decreasing hemoglobin and hematocrit. Plan at this time, patient has been ordered repeat labs. Patient's HIV is pending. Repeat CBC ordered for the morning. PT/INR ordered. Repeat blood and urine cultures ordered. CURRENT CONSULTATION: Patient has been requested to be seen by: 1. Hematology/Oncology. 2. Infectious Disease. 3. Psychiatry. 4. Neurology. 5. Surgery. 6. Nephrology. 7. Orthopedics. 8. Urology. 9. Podiatry. CURRENT MEDICATIONS: 1. Mucomyst 20% 4 mL q.6 hours. 2. Aricept 10 mg at bedtime. 3. Colace 200 mg daily. 4. Drisdol 50,000 units weekly. 5. Ecotrin 81 mg daily. 6. Flomax 0.4 mg daily. 7. Folic acid 1 mg daily. 8. Patient is started on heparin drip by Hematology/Oncology. 9. Patient is on Humalog medium dose sliding scale coverage a.c. and at bedtime. 10. Lac-Hydrin lotion to the both feet twice daily. 11. Ringer's lactate at 150 mL an hour. 12. Lopressor 50 mg twice a day. 13. Meropenem 500 mg IV q.12. 14. MiraLax 17 g daily. 15. Pepcid 20 mg daily. 16. Risperdal 1 mg daily. 17. Tylenol 650 mg p.o. suppository q.4 p.r.n. for temperature greater than or equal to 99.5. 18. Patient is given a dose of vitamin K 10 mg x1. 19. Xopenex 0.63 mg nebulizer every 6 hours. Chest PT ordered. Patient is on dysphagia, modified consistency diet. Out of bed. Physical therapy, occupational therapy ordered. Patient was seen by Hematology/Oncology. Their recommendations were noted. Hematology/Oncology recommends to start heparin drip and then eventually change to Eliquis for 3 months. Patient seen by Infectious Disease. To continue meropenem. Patient seen by Podiatry, Surgery, Neurology, Infectious Disease. Plan at this time, patient will be attempted to undergo an MRI of the lumbosacral spine and sacrum. For evaluation of osteomyelitis. Patient's family has not responded to my phone calls and messages which I have left on the patient's daughter's phone. Patient's overall prognosis is guarded to poor. Patient is to be continued on above therapeutic intervention as per the MAR of today. Dictated and electronically signed, not read. Eliezer Hanna MD MTDD
--- NOTE | 2017-09-08 08:21 | CON ---
DATE: 09/07/2017 PRESENTATION: Patient is a 76-year-old male seen at bedside. He was admitted to the hospital on 09/05/2017. He was sent to the ER from [facility] for evaluation of fever and change in responsiveness prior to arrival. He does have a history of schizophrenia, UTI, and dysphagia, also dementia without behavioral disturbance. Consultation was called due to concerns regarding altered mental status. When I attempted to examine the patient, he was in the bed, eyes closed, difficult to arouse, not able to answer any questions, though he did respond to his name. He was being fed by a nurse's aide and he was eating and chewing, but there is very little interaction. In review of his blood work, his white blood cells for today are 21.1, which are down from yesterday which was 21.5. His urine indicates multiple species, suggest repeat specimen so it appears that he probably has a urinary tract infection, his blood culture preliminarily indicates a gram-negative tejal, so patient is septic at the moment which would account for his altered mental status at this time. I was unable to get a full mental status on him. PLAN: The plan at this time would be to sign off in this patient at this point in time and to please call back if there are any concerns once patient medically is stabilized. His infections are adding to whatever else may be going on with him, so it is difficult to treat him psychiatrically or assess him psychiatrically in his current medical condition. DIAGNOSES: 1. Dementia without behavioral disturbance. 2. Altered mental status due to sepsis. I am signing off on this patient. Please call back if there are further concerns. This case has been discussed with Dr. Livier Rivera. Thank you for the consult. Kym Jim APN Livier Rivera MD [place]
[2017-09-08] MEDS: Insulin Lispro (humaLOG) MEDIUM Coverage SC SCH ×4 (08:53→22:31)
[2017-09-08 08:58] LABS: HEMOGLOBIN 10.6 g/dL (14.0-18.0); MEAN CELL VOLUME 88.9 fl (80.0-105.0); MEAN CORPUSCULAR HEMOGLOBIN 30.2 pg (25.0-35.0); MEAN PLATELET VOLUME 9.6 fl (7.0-11.0); RBC 3.51 10^6/uL (3.5-6.1); RED CELL DISTRIBUTION WIDTH 15.3 % (11.5-14.5); WHITE BLOOD COUNT 18.3 10^3/ul (4.5-11.0)
[2017-09-08 09:15] LABS: INR 1.46 (0.93-1.08); PARTIAL THROMBOPLASTIN TIME 31.1 Seconds (25.1-36.5); PROTHROMBIN TIME 16.9 SECONDS (9.4-12.5)
[2017-09-08] MEDS ORDERED: Heparin25000 units/250ml 1/2NS 25,000 UNITS/250 ML BAG IV PRN (09:43)
[2017-09-08 11:09] LABS: ALB/GLOB RATIO 0.6 (1.1-1.8); ALBUMIN 2.3 g/dL (3.0-4.8); BILIRUBIN,DIRECT 0.7 mg/dL (0.0-0.4); CALCIUM 8.1 mg/dL (8.4-10.5); MAGNESIUM 2.2 mg/dL (1.7-2.2)
--- NOTE | 2017-09-08 11:30 | CP.PCM.PCO ---
Physician Communication Note - Physician Communication Note Physician Communication Note: signed off from this case
[2017-09-08] MEDS: POLYETHYLENE GLYCOL 3350 17 GM/Dose PACKET PO SCH (12:10)
[2017-09-08] MEDS: Meropenem 1g/NS 100mL IVPB 1 GM/100 ML PIGGYBACK IVPB SCH ×2 (12:11→22:39)
[2017-09-08] MEDS: Ammonium Lactate 12% Lotion (225 g) EXT SCH (12:32)
--- NOTE | 2017-09-08 13:10 | EEG ---
DATE: 09/07/2017 INTRODUCTION: This is a digitally recorded EEG monitoring using standard EEG montages. BACKGROUND RHYTHM: The EEG shows a background activity of 7 Hz theta activity in parietooccipital region. The EEG activity is bilaterally symmetrical and synchronous. Significant amount of myogenic artifact noted in this EEG recording. ABNORMAL POTENTIALS: No spike, sharp waves, or focal slowing was seen. PHOTIC STIMULATION AND HYPERVENTILATION: Photic stimulation did not reveal any abnormality. Hyperventilation was not performed. IMPRESSION: Abnormal electroencephalogram. The above findings are consistent with mild bihemispheric cerebral dysfunction. No epileptiform activity seen in this electroencephalogram recording. Toy Kaur MD
--- NOTE | 2017-09-08 13:52 | CP.PCM.PN ---
<Arnaud Gomes - Last Filed: 09/08/17 13:48> Subjective - Date & Time of Evaluation Date of Evaluation: 09/08/17 Time of Evaluation: 13:48 - Subjective Subjective: Patient seen and examined at bedside. Patient is alert. Patient keeps repeating he has a cough. Otherwise, no complaints from patient. No acute events overnight as per nursing. ROS not obtainable due to patient mental status. Objective - Vital Signs/Intake and Output Vital Signs (last 24 hours): Temp Pulse Resp BP Pulse Ox 97.8 F 61 20 191/84 H 99 09/08/17 07:00 09/08/17 12:10 09/08/17 07:00 09/08/17 12:10 09/08/17 07:00 Intake and Output: 09/08/17 09/08/17 06:59 18:59 Intake Total 360 Output Total 525 Balance -165 - Medications Medications: Current Medications Acetaminophen (Tylenol 325mg Tab) 650 mg PO Q4 PRN PRN Reason: FOR TEMP>=99.5F Acetaminophen (Tylenol 650 Mg Supp) 650 mg RC Q4H PRN PRN Reason: FEVER>=99.5F Acetylcysteine (Acetylcysteine 20%) 4 ml IH [id number] [facility] Last Admin: 09/08/17 13:25 Dose: 4 ml Apixaban (Eliquis) 10 mg PO BID [facility] PRN Reason: Protocol Aspirin (Ecotrin) 81 mg PO DAILY [facility] Last Admin: 09/08/17 12:09 Dose: 81 mg Docusate Sodium (Colace) 200 mg PO QPM [facility] Last Admin: 09/07/17 18:11 Dose: 200 mg Donepezil HCl (Aricept) 10 mg PO HS [facility] Last Admin: 09/07/17 22:11 Dose: 10 mg Ergocalciferol (Drisdol 50,000 Intl Units Cap) 1 cap PO MON [facility] Last Admin: 09/07/17 10:29 Dose: 1 cap Famotidine (Pepcid) 20 mg PO DAILY [facility] Last Admin: 09/08/17 12:09 Dose: 20 mg Folic Acid (Folic Acid) 1 mg PO DAILY [facility] Last Admin: 09/08/17 12:11 Dose: 1 mg Lactated Ringer's (Lactated Ringer's) 1,000 mls @ 150 mls/hr IV .Q6H40M [facility] Last Admin: 09/07/17 22:20 Dose: 150 mls/hr Meropenem/Sodium Chloride (Meropenem 1g/Ns 100ml Ivpb) 1 gm in 100 mls @ 100 mls/hr IVPB Q12 [facility] Stop: 09/15/17 22:01 Last Admin: 09/08/17 12:11 Dose: 100 mls/hr Insulin Human Lispro (Humalog Med) 0 units SC ACHS [facility] PRN Reason: Protocol Last Admin: 09/08/17 12:15 Dose: 3 units Lactic Acid (Lac-Hydrin 12% Lotion (225 G)) 0 gm EXT DAILY [facility] Last Admin: 09/08/17 12:32 Dose: 1 applic Levalbuterol HCl (Xopenex) 0.63 mg IH [id number] [facility] Last Admin: 09/08/17 13:25 Dose: 0.63 mg Metoprolol Tartrate (Lopressor) 50 mg PO BID [facility] Last Admin: 09/08/17 12:10 Dose: 50 mg Polyethylene Glycol (Miralax) 17 gm PO DAILY [facility] Last Admin: 09/08/17 12:10 Dose: 17 gm Polysaccharide Iron Complex (Ferrex-150) 150 mg PO DAILY [facility] Risperidone (Risperdal Tab) 1 mg PO DAILY [facility] PRN Reason: Protocol Last Admin: 09/08/17 12:09 Dose: 1 mg Tamsulosin HCl (Flomax) 0.4 mg PO DAILY [facility] Last Admin: 09/08/17 12:10 Dose: 0.4 mg - Labs Labs: 09/08/17 08:50 09/08/17 10:34 PT 16.9 SECONDS (9.4-12.5) H 09/08/17 08:50 INR 1.46 (0.93-1.08) H 09/08/17 08:50 APTT 31.1 Seconds (25.1-36.5) 09/08/17 08:50 - Constitutional Appears: Non-toxic, No Acute Distress - Head Exam Head Exam: ATRAUMATIC, NORMAL INSPECTION, NORMOCEPHALIC - ENT Exam ENT Exam: Mucous Membranes Dry - Respiratory Exam Respiratory Exam: Decreased Breath Sounds, NORMAL BREATHING PATTERN. absent: Rales, Rhonchi, Wheezes - Cardiovascular Exam Cardiovascular Exam: RRR, +S1, +S2 - GI/Abdominal Exam GI & Abdominal Exam: Soft, Normal Bowel Sounds. absent: Tenderness - Extremities Exam Extremities Exam: Pedal Edema (Trace b/l). absent: Calf Tenderness - Neurological Exam Neurological Exam: Alert, Awake. absent: Oriented x3 - Skin Skin Exam: Dry, Intact, Normal Color, Warm Assessment and Plan - Assessment and Plan (Free Text) Plan: 76 y/o male with past medical history of HTN, DM, Obesity, gram negative bacilli bacteremia and possible sacral osteomyelitis. Patient had upper extremity ultrasound yesterday which showed left subclavian DVT and right basilic vein thrombophlebitis. Patient was placed on heparin drip last night, but has now been transitioned to Eliquis at the patient does not have any plans for surgical intervention. Patient also had a bone scan which was inconclusive for osteomyelitis. Patient will receive pelvis and lumbar MRI today to further evaluate for osteomyelitis. 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 Patient will remain on Merrem for ongoing infection as per ID. Continue with IVF as per Nephro. Continue current medical management. Will follow closely. Mireya, PGY-2 <Eliezer Hanna U - Last Filed: 09/18/17 14:26> Objective - Vital Signs/Intake and Output Vital Signs (last 24 hours): Temp Pulse Resp BP Pulse Ox 99.4 F 65 18 148/77 99 09/16/17 18:28 09/16/17 18:48 09/16/17 18:28 09/16/17 18:48 09/16/17 16:00 - Labs Labs: 09/16/17 07:00 09/16/17 07:00 PT 14.8 SECONDS (9.4-12.5) H 09/16/17 07:00 INR 1.28 (0.93-1.08) H 09/16/17 07:00 APTT 31.1 Seconds (25.1-36.5) 09/16/17 07:00 Attending/Attestation - Attestation I have personally seen and examined this patient.: Yes I have fully participated in the care of the patient.: Yes I have reviewed all pertinent clinical information, including history, physical exam and plan: Yes Notes (Text): Please read/see my dictated notes.
[2017-09-08] MEDS: Iron Complex Polysacch 150mg Cap PO SCH (14:03)
--- NOTE | 2017-09-08 18:39 | PN ---
DATE: SUBJECTIVE: The patient is currently seen with IV fluid infusing, lying supine in bed. Eyes are closed, he is not communicating with me. MEDICATIONS: Medication list reviewed. The patient is currently on acetylcysteine, Aricept, Colace, vitamin D, Ecotrin, Eliquis, Flomax, folic acid, insulin, Lac-Hydrin, lactated Ringer's 150 mL an hour, Lopressor, meropenem, MiraLax, Pepcid, Risperdal, p.r.n. Tylenol, and Xopenex. OBJECTIVE: INTAKE/OUTPUT: Intake 360 plus, output 525. VITAL SIGNS: Blood pressure ranging from 137 to 191 systolic, diastolics ranging from 71 to 84. Temperature 97.8, pulse 61, respiratory rate 20, and pulse ox 99%. HEENT: Shows his eyes to be closed. NECK: No neck vein distention. CHEST: Clear to auscultation and percussion. No rales, no rhonchi, no wheezing. CARDIOVASCULAR: Shows a regular rate and rhythm without murmurs, rubs, or gallops. ABDOMEN: Soft. Nondistended, nontender. Bowel sounds are normal. BACK AREA: Positive stage III sacral decubitus. EXTREMITIES: Show puffy lower extremity with trace nonpitting edema. No cyanosis or clubbing. NEURO: Difficult to assess as the patient is noncommunicative. LABORATORY DATA AND IMAGING: CBC: White blood cell count today is down to 18.3, hemoglobin is 10.6 with a platelet count of 336,000. Chemistry showed normal electrolytes with the exception of a low CO2 level of 17. BUN is 74 with a creatinine of 2.9. Patient's baseline BUN is in the 30s with a baseline creatinine close to 1. Glucose 212. Calcium 8.1, phosphorus 4.2, magnesium 2.2. Albumin level is 2.3. Vitamin D level was 39. TSH level is normal at 1.09. PSA level was elevated at 15. Microbiology: Urine culture showed multiple organisms. Initial blood cultures are positive for E. coli. Gram stain of the sacral decubitus is positive for Gram-positive cocci and Gram-negative tejal. Final isolation and sensitivities are pending. Imaging studies: Doppler study shows a left subclavian vein DVT and a right basilic vein, superficial thrombophlebitis. No DVT in the left lower extremity and right lower extremity was not evaluated. Chest, abdominal, and pelvic CT scan done on 09/05/2017, showed [id number] anasarca, Mckeon catheter, and air and possible fluid in the paravertebral musculature with possible soft tissue extension into the spine not excluded. Kidneys showed pjrj-[id number] stranding, nonspecific findings, renal cyst. No hydronephrosis. ASSESSMENT: 1. Acute renal failure, superimposed on likely chronic kidney disease stage 2. This is in the setting of Escherichia coli septicemia, infected sacral decubitus, and possible urinary tract infection. 2. Altered mental status in part secondary to sepsis. 3. Infected sacral decubitus with possible osteomyelitis as noted above. 4. History of deep vein thrombosis as noted above. 5. History of noninsulin-dependent diabetes mellitus. Patient continues on sliding scale insulin. 6. History of severe anemia. In part secondary to acute renal failure, in part secondary to infection. Iron saturations are low at 10%, so in part secondary to iron deficiency. IV iron was discontinued because of severe sepsis. 7. History of hypertension. The patient will continue present blood pressure medication. 8. History of bipolar disorder, currently stable. 9. History of benign prostatic hypertrophy with an elevated PSA level. 10. History of atherosclerotic heart disease, currently stable. PLAN: 1. Continue IV fluid hydration. Monitor accurate I's and O's, keep intake ahead of output. 2. Await final isolation and sensitivity, and adjust antibiotics accordingly. 3. Avoid all nephrotoxic agents in light of his elevated BUN and creatinine above baseline levels. 4. Continue to monitor accurate I's and O's and daily labs. 5. I will start patient on oral iron supplements. 6. Close renal followup until his BUN and creatinine returned back to baseline levels. Jonas Angeles MD [place]
--- NOTE | 2017-09-08 20:05 | MRI ---
EXAM: MR Pelvis Without Intravenous Contrast EXAM DATE/TIME: 09/08/2017 12:04 AM CLINICAL HISTORY: The patient age is 76 years old and is male; Pain; Pelvic pain; Additional info: Osteomyelitis Facility exam id and description: Mri pelviss pelvis without contrast TECHNIQUE: Multiplanar magnetic resonance images of the pelvis without intravenous contrast. COMPARISON: CT - CHEST,ABDOMEN,PELVIS W/O CONT 2017-09-05 23:13 FINDINGS: Limitations: The study is limited by the absence of post contrast sequences. Bowel: No visualized distention. Intraperitoneal space: There is a small amount of free fluid in the pelvis. Additional stranding of the intrapelvic fat is visualized. Bladder: A Mckeon catheter is identified within the bladder, which is decompressed. Reproductive: Scrotal swelling is visualized. The prostate is mildly enlarged and heterogeneous in signal intensity. Evaluation of the prostate is limited. Bones/joints: Edema is identified within the bone marrow of the anterior inferior iliac spine on the right side, which may be reactive or post-traumatic, although osteomyelitis is also considered. There is no definitive marrow edema involving the pelvis to suggest osteomyelitis. There is nonspecific heterogeneous signal intensity of the bone marrow of the pelvis, suggestive of a nonspecific increase in the cellular content in the marrow or red marrow reconversion. Magnetic susceptibility artifact is identified involving the right hip, consistent with postoperative change. There is stable dislocation of the right hip. For discussion of findings within the lumbar spine, refer to the MRI lumbar spine report from the same day. Soft tissues: The previously identified sacral decubitus ulcer is again visualized, with adjacent soft tissue swelling. No acute marrow edema is identified within the sacrum. Within the left posterior paraspinal musculature at the lumbosacral junction, there is a 3.0 x 1.9 x 4.3 cm fluid collection, concerning for abscess. Additional fluid or phlegmonous changes seen within the lateral left thigh. This extends out of the field of view of this study. Diffuse edematous changes are seen within the subcutaneous tissues of the pelvis and proximal thighs, consistent with the previously described anasarca. Diffuse muscle edema is identified, suggestive of muscle strain or myositis. Vasculature: No lower abdominal aortic aneurysm. Lymph nodes: No significant intrapelvic lymphadenopathy. IMPRESSION: 1. The previously identified sacral decubitus ulcer is again visualized, with adjacent soft tissue swelling. No acute marrow edema is identified within the sacrum. Within the left posterior paraspinal musculature at the lumbosacral junction, there is a 3.0 x 1.9 x 4.3 cm fluid collection, concerning for abscess. Additional fluid or phlegmonous changes seen within the lateral left thigh, which is likely infectious. 2. Edema is identified within the bone marrow of the anterior inferior iliac spine on the right side, which may be reactive or post-traumatic, although osteomyelitis is also considered. 3. There is no definitive marrow edema involving the pelvis to suggest osteomyelitis. 4. There is a small amount of free fluid in the pelvis. Additional stranding of the intrapelvic fat is visualized. 5. Diffuse edematous changes are seen within the subcutaneous tissues of the pelvis and proximal thighs, consistent with the previously described anasarca. 6. There is nonspecific heterogeneous signal intensity of the bone marrow of the pelvis, suggestive of a nonspecific increase in the cellular content in the marrow or red marrow reconversion. 7. Magnetic susceptibility artifact is identified involving the right hip, consistent with postoperative change. There is stable dislocation of the right hip. 8. Diffuse muscle edema is identified, suggestive of muscle strain or myositis. 9. Additional findings described above.
--- NOTE | 2017-09-08 20:18 | CP.PCM.PN ---
Subjective - Date & Time of Evaluation Date of Evaluation: 09/08/17 Time of Evaluation: 13:00 - Subjective Subjective: Appears comfortable Objective - Vital Signs/Intake and Output Vital Signs (last 24 hours): Temp Pulse Resp BP Pulse Ox 97.8 F 61 20 191/84 H 99 09/08/17 07:00 09/08/17 12:10 09/08/17 07:00 09/08/17 12:10 09/08/17 07:00 - Medications Medications: Current Medications Acetaminophen (Tylenol 325mg Tab) 650 mg PO Q4 PRN PRN Reason: FOR TEMP>=99.5F Acetaminophen (Tylenol 650 Mg Supp) 650 mg RC Q4H PRN PRN Reason: FEVER>=99.5F Acetylcysteine (Acetylcysteine 20%) 4 ml IH [id number] [facility] Last Admin: 09/08/17 19:52 Dose: 4 ml Apixaban (Eliquis) 5 mg PO Q12 [facility] PRN Reason: Protocol Aspirin (Ecotrin) 81 mg PO DAILY [facility] Last Admin: 09/08/17 12:09 Dose: 81 mg Docusate Sodium (Colace) 200 mg PO QPM [facility] Last Admin: 09/08/17 19:13 Dose: Not Given Donepezil HCl (Aricept) 10 mg PO HS [facility] Last Admin: 09/07/17 22:11 Dose: 10 mg Ergocalciferol (Drisdol 50,000 Intl Units Cap) 1 cap PO MON [facility] Last Admin: 09/07/17 10:29 Dose: 1 cap Famotidine (Pepcid) 20 mg PO DAILY [facility] Last Admin: 09/08/17 12:09 Dose: 20 mg Folic Acid (Folic Acid) 1 mg PO DAILY [facility] Last Admin: 09/08/17 12:11 Dose: 1 mg Lactated Ringer's (Lactated Ringer's) 1,000 mls @ 150 mls/hr IV .Q6H40M [facility] Last Admin: 09/07/17 22:20 Dose: 150 mls/hr Meropenem/Sodium Chloride (Meropenem 1g/Ns 100ml Ivpb) 1 gm in 100 mls @ 100 mls/hr IVPB Q12 [facility] Stop: 09/15/17 22:01 Last Admin: 09/08/17 12:11 Dose: 100 mls/hr Insulin Human Lispro (Humalog Med) 0 units SC ACHS [facility] PRN Reason: Protocol Last Admin: 09/08/17 19:13 Dose: Not Given Lactic Acid (Lac-Hydrin 12% Lotion (225 G)) 0 gm EXT DAILY [facility] Last Admin: 09/08/17 12:32 Dose: 1 applic Levalbuterol HCl (Xopenex) 0.63 mg IH [id number] [facility] Last Admin: 09/08/17 19:52 Dose: 0.63 mg Metoprolol Tartrate (Lopressor) 50 mg PO BID [facility] Last Admin: 09/08/17 19:14 Dose: Not Given Polyethylene Glycol (Miralax) 17 gm PO DAILY [facility] Last Admin: 09/08/17 12:10 Dose: 17 gm Polysaccharide Iron Complex (Ferrex-150) 150 mg PO DAILY [facility] Last Admin: 09/08/17 14:03 Dose: 150 mg Risperidone (Risperdal Tab) 1 mg PO DAILY [facility] PRN Reason: Protocol Last Admin: 09/08/17 12:09 Dose: 1 mg Tamsulosin HCl (Flomax) 0.4 mg PO DAILY [facility] Last Admin: 09/08/17 12:10 Dose: 0.4 mg - Labs Labs: 09/08/17 08:50 09/08/17 10:34 PT 16.9 SECONDS (9.4-12.5) H 09/08/17 08:50 INR 1.46 (0.93-1.08) H 09/08/17 08:50 APTT 31.1 Seconds (25.1-36.5) 09/08/17 08:50 - Head Exam Head Exam: ATRAUMATIC - Eye Exam Eye Exam: Normal appearance - ENT Exam ENT Exam: Mucous Membranes Dry - Respiratory Exam Respiratory Exam: NORMAL BREATHING PATTERN - Cardiovascular Exam Cardiovascular Exam: +S1, +S2 - GI/Abdominal Exam GI & Abdominal Exam: Normal Bowel Sounds Assessment and Plan (1) Deep vein thrombosis Assessment & Plan: left subclavian DVT ? provoked from immobility ? past IV access ?occult malignancy (elevated PSA) on therapeutic Eliquis for a duration of 3 months Status: Acute (2) Coagulopathy Assessment & Plan: on anticoagulation Status: Acute (3) Anemia Assessment & Plan: anemia of chronic disease from sacral decubitus ulcer intermittent Procrit to decrease transfusion dependence Status: Acute (4) Leukocytosis Assessment & Plan: improving with antibiotics Status: Acute
--- NOTE | 2017-09-08 20:20 | MRI ---
EXAM: MR Lumbar Spine Without Intravenous Contrast EXAM DATE/TIME: 09/08/2017 12:04 AM CLINICAL HISTORY: The patient age is 76 years old and is male; Pain; Low back pain; Additional info: Osteomyelitis Facility exam id and description: Mri spls spinal canal lumbar w/o cont TECHNIQUE: Magnetic resonance images of the lumbar spine without intravenous contrast in multiple planes. COMPARISON: CT - CHEST,ABDOMEN,PELVIS W/O CONT 09/05/2017 11:13:06 PM MR - PELVIS WITHOUT CONTRAST 09/08/2017 5:23:10 PM FINDINGS: Vertebrae: The lumbar vertebral bodies are normal in height, without abnormal subluxation. There is a T2 hyperintense probable left renal cyst measuring 5.0 cm in diameter. Artifact limits this evaluation. Marrow: No acute marrow edema is identified within the lumbar spine. No epidural fluid collections are visualized. Spinal cord: The distal end of the conus medullaris ends at T12-L1, normal in position. Soft tissues: There is swelling of the soft tissues posterior to lumbar spine. Adrenals: There is nodular thickening of the left adrenal gland which extends out of the rrryt-fo-lgvq of the study. Intraperitoneal space: A left posterior paraspinal fluid collection is identified at the lumbosacral junction, suggestive of abscess. DISCS/SPINAL CANAL/NEURAL FORAMINA:Degenerative disc disease is noted at multiple lumbar and visualized lower thoracic levels, with a decrease in the T2 signal intensity of the discs as well as disc bulge/osteophyte complexes. L1-L2: There is no significant narrowing of the thecal sac or neural foramina. L2-L3: There is minimal narrowing of the thecal sac. Mild bilateral neural foramina is identified. There is bilateral facet arthropathy. L3-L4: There is bilateral facet arthropathy. There is mild narrowing of the thecal sac and narrowing of both lateral recesses. Mild bilateral neural foraminal narrowing is identified. L4-L5: There is bilateral facet arthropathy. Hypertrophic flavum is visualized, with a broad-based disc bulge. Severe narrowing of the thecal sac is identified, with an AP diameter of 7 mm. There is marked narrowing of both lateral recesses. Moderate right and [id number] left neural foramina is identified. L5-S1: There is bilateral facet arthropathy. Mild narrowing of the thecal sac is visualized. There is no significant narrowing of the neural foramina. IMPRESSION: 1. A left posterior paraspinal fluid collection is identified at the lumbosacral junction, suggestive of abscess. Refer to the pelvic MRI for further discussion. 2. No acute marrow edema is identified within the lumbar spine. No epidural fluid collections are visualized. 3. There is swelling of the soft tissues posterior to lumbar spine. 4. Degenerative changes are noted at multiple lumbar and visualized lower thoracic levels, as described above. 5. Severe narrowing of the thecal sac is visualized at L4-5, with mild narrowing of the thecal sac at L3-4 and L5-S1. There is minimal narrowing of the thecal sac at L2-3. 6. Neural foraminal narrowing is identified from L2-3 through L4-5, as detailed above. 7. There is nodular thickening of the left adrenal gland which extends out of the [id number] of the study. 8. Additional findings described above.
[2017-09-08 21:03] LABS: TOTAL PSA 21.7 ng/mL (< or = 4.0)
--- NOTE | 2017-09-08 22:36 | PN ---
DATE: 09/08/2017 SUBJECTIVE: The patient is seen lying in room 575, bed 1. The patient is alert, awake, responsive, oriented to person; disoriented to year, date, month, time. Overnight nurse's notes were reviewed. PHYSICAL EXAMINATION: VITAL SIGNS: T-max 97.8, 98.1; pulse 61, 67; blood pressure is in the last 24 hours 138/95, 137/91, 191/84, down to 115/75. GENERAL: The patient is seen lying in the bed. HEENT: Head examination is normocephalic, atraumatic. Positive blindness. No oropharyngeal lesion. NECK: No neck rigidity. Soft carotid bruit. CHEST: Kyphosis. LUNGS: Show no rales, crackles, or wheezing. CARDIOVASCULAR: S1, S2, regular rhythm. ABDOMEN: Protuberant. Positive bowel sounds. Slightly distended abdomen. GENITALIA: Male. Positive Mckeon catheter, draining dark urine. EXTREMITIES: Show positive flexion contractures of the upper and lower extremity. MUSCULOSKELETAL: Shows a body mass index of 27. NEUROLOGIC: The patient is alert, awake, oriented x1. Cranial nerves II through XII limited. Gait examination is bedridden. DIAGNOSTICS: On 09/08/2017, WBC 18.3, hemoglobin/hematocrit 10.6/31.2, platelets 336. ESR 136. PT 16.9, PTT 31. Sodium 135, potassium 3.9, chloride 105, CO2 17, anion gap 17, BUN 74, creatinine 2.9, GFR 26, glucose 212, calcium 8.1, phosphorus 4.2, magnesium 2.2. LFTs are normal except alk phos is 141, albumin 2.3. PSA is persistently elevated at 15. Hepatitis A, B, C serologies are negative. HIV is nonreactive. Blood culture is growing Escherichia coli pansensitive. Blood type B negative. EEG read by the neurologist which shows abnormal EEG with bihemispheric cerebral dysfunction. IMPRESSION: 1. Severe sepsis secondary to Escherichia coli bacteremia and sepsis, probably secondary to urinary tract infection. 2. Possible sacral osteomyelitis with sacral decubitus ulceration, stage II/III. 3. Hypertension. 4. Visual impairment. 5. Dementia and delirium. 6. High-grade fever of 103 degrees Fahrenheit. 7. Leukocytosis with granulocytosis and bandemia. 8. Elevated erythrocyte sedimentation rate of greater than 130. 9. Normocytic anemia. 10. Status post packed red blood cell transfusion. 11. Coagulopathy. 12. Acute renal failure, acute kidney injury, etiology undetermined. 13. Insulin-requiring well-controlled diabetes mellitus with hemoglobin A1c of 6.7. 14. Iron deficiency. 15. Transaminitis. 16. Hypoalbuminemia. 17. Elevated prostate-specific antigen of greater than 15. 18. Hyperprocalcitoninemia. 19. Hyperglycemia. 20. Severe deconditioning, gait dysfunction, and possible functional quadriplegia. 21. Acute on chronic right hip dislocation. 22. Proteinuria, hematuria, pyuria, bacteriuria 23. Escherichia coli bacteremia and sepsis. 24. Multi species urinary tract infection. 25. Status post 2 units of PRBC transfusion. 26. Abnormal EEG with bihemispheric cerebral dysfunction. 27. Questionable provoked left subclavian deep venous thrombosis secondary to mobility versus IV access verses occult malignancy. 28. Coagulopathy. 29. Anemia. 30. Increased uptake of the right hip consistent with right total hip bipolar component dislocation. 31. Increased uptake left femur. 32. Degenerative joint changes of the right sternoclavicular joint. 33. Acute hypoechoic adherent partially occlusive left subclavian vein thrombosis. 34. Adherent nonocclusive thrombus in the right basilic vein. 35. Anasarca. 36. Diffuse soft tissue stranding and thickening within the subcutaneous tissue along sacrum/coccyx with air cluster and fluid within the adjacent left lower paravertebral musculature with air overlying subcutaneous tissue with foci of air within the spinal canal of the lower lumbar spine and sacrum. 37. History of right hip surgery and arthroplasty. 38. Right hip joint dislocation. 39. Right hip joint moderate heterotrophic ossification and minimal heterotropic ossification of the left hip. 40. Hip joint effusion. 41. Degenerative joint disease of the spine. 42. Diverticulosis of the colon. 43. Rectal wall thickening. 44. Sacral decubitus ulceration with sacral coccygeal osteomyelitis with probable adjacent soft tissue infection along left paravertebral musculature with possible extension into the spine. 45. Moderate anasarca 46. Malposition Mckeon catheter. 47. Urinary retention. 48. Elevated prostate-specific antigen. 49. Voiding dysfunction. 50 Mucus plugging with atelectasis, scarring and pulmonary parenchyma with mosaic pattern with intralobular septal thickening. 51. Small bilateral pleural effusion. 52. Coronary artery calcification. 53. Degenerative joint disease of the spine. 54. Minimal left gynecomastia. 55. Elevated left hemidiaphragm. 56. Hepatic cystic *------* bilateral perinephric stranding and bilateral renal cyst. 57. Colonic diverticulosis. 58. Prostatomegaly. 59. 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 60. Bilateral cerebral hemispheric dysfunction. 61. Severe sepsis. 62. Dementia. 63. Toxic metabolic encephalopathy and altered mental status. 1. Gram-negative tejal bacteremia and sepsis. 2. Questionable urinary tract infection secondary to multiple urinary tract species. 3. Hypertension. 4. Severe gait dysfunction and deconditioning and bedridden status and possible functional quadriplegia. 5. Leukocytosis with granulocytosis and bandemia. 6. Normocytic anemia. 7. Elevated erythrocyte sedimentation rate of 136. 8. Elevated reticulocyte count of 1.69. 9. Visual impairment. 10. Mild coagulopathy. 11. Acute kidney injury and acute renal failure. 12. Well-controlled insulin-requiring diabetes mellitus with hemoglobin A1c of 6.7. 13. Iron-deficiency anemia. 14. Transaminitis. 15. Hypoalbuminemia. 16. Hyperuricemia. 17. Hyperbilirubinemia. 18. Hyperprocalcitoninemia. 19. Proteinuria, ketonuria, microscopic hematuria, pyuria, bacteriuria. 20. B negative blood type. 21. Status post 2 units of packed red blood cells. 22. 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 23. Degenerative joint disease and increased uptake on the right hip consistent with dislocated right total hip. 24. Increased uptake of the left femur and degenerative joint disease of the right sternoclavicular joint. 25. Left subclavian vein deep venous thrombosis. 26. Left subclavian vein acute hypoechoic adherent partially occlusive thrombosis, provoked from immobility and possible IV access. 27. Right basilic vein adherent nonocclusive thrombosis. 28. Upper and lower extremity flexion contractures. 29. Cerebral cortical atrophy of the brain. 30. Bedridden status and functional quadriplegia. 31. Intracranial atherosclerotic disease. 32. Left mastoid partial opacification with mild mucosal sinus thickening of the sinuses. 33. Status post packed red blood cell transfusion x2. 34. Hypovitaminosis D. 35. Prostatic hypertrophy. 36. Urinary retention. 37. Elevated prostate-specific antigen of 15, questionable occult malignancy. 38. Anemia of chronic disease. 39. Sacral decubitus ulceration, stage 2. 40. Unspecified dementia. 41. Mild oropharyngeal dysphagia. 42. Mild oral dysphagia. 43. Altered mental status. 44. Flexion contractures of upper and lower extremity. 45. Toxic metabolic encephalopathy. 46. High grade fever. 47. Severe sepsis. 48. Questionable sacral coccygeal osteomyelitis with extension into the soft tissue and left paravertebral musculature with possible extension into the spine. 49. Constipation. 50. Prostatic hypertrophy with urinary retention. 1. High-grade fever. 2. Gram-negative tejal bacteremia and sepsis. 3. Stage II to III sacral decubitus ulceration. 4. Hypotension. 5. Leukocytosis with granulocytosis and bandemia. 6. Elevated erythrocyte sedimentation rate of 136. 7. Mild coagulopathy. 8. Acute kidney injury. 9. Insulin-requiring diabetes mellitus with hemoglobin A1c of 6.7. 10. Iron-deficiency anemia. 11. Transaminitis. 12. Hypoalbuminemia. 13. Severe gait dysfunction and bedridden status. 14. Sacral decubitus ulceration. 15. Hyperuricemia. 16. Hyperbilirubinemia. 17. Hyperprocalcitoninemia. 18. Proteinuria, microscopic hematuria, pyuria, bacteriuria. 19. Right femur dislocation from [place] acetabulum. 20. 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 21. Bilateral hip joint effusion and heterotrophic ossification of the right hip joint and left hip joint. 22. Degenerative joint disease of the spine. 23. Posterior sacral coccyx erosion. 24. Colonic diverticulosis. 25. 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 26. [id number] anasarca. 27. Urinary retention. 28. Mucus plugging and bilateral atelectasis. 29. Interlobular septal thickening. 30. Coronary artery calcification. 31. Degenerative joint disease of spine. 32. Mild left gynecomastia. 33. Elevated left hemidiaphragm. 34. Questionable interstitial edema and anasarca. 35. Bilateral renal cyst. 36. Colonic diverticulosis. 37. Prostatomegaly. 38. Right hip arthroplasty with dislocation of the right hip joint and moderate heterotrophic ossification about the right hip joint. 39. Anasarca. 40. Bilateral perinephric stranding and bilateral renal cyst. 41. Cerebral cortical atrophy of the brain. 42. Periventricular subcortical white matter disease of the brain. 43. Atherosclerotic intracranial arterial disease. 44. Left mastoid partial opacification. 45. Gait dysfunction. 46. Severe deconditioning. 47. Insulin-requiring diabetes mellitus. 48. Anemia, etiology undetermined. 49. Iron-deficiency anemia, etiology undetermined. 50. Incomplete right bundle branch block, left anterior hemiblock, bifascicular block. 51. Mild oral dysphagia. 1. High-grade fever of greater than 103 degrees Fahrenheit. 2. Tachycardia. 3. Hypertension and hypotension. 4. Questionable and probable sepsis. 5. Leukocytosis with granulocytosis and bandemia. 6. Normocytic anemia with decreasing hemoglobin and hematocrit. 7. Mild coagulopathy. 8. Acute renal failure, acute kidney injury. 9. Hypoglycemia. 10. Hyperuricemia. 11. Iron-deficiency normocytic anemia. 12. Transaminitis. 13. Protein malnutrition and hypoalbuminemia. 14. Sepsis with urinary tract infection with proteinuria, ketonuria, microscopic hematuria, pyuria, bacteriuria. 15. History of right hip subcapital fracture open reduction and right hip hemiarthroplasty. History of right femoral neck right hip subcapital fracture, status post surgery. 16. Dementia. 17. Psychosis. 18. Visual impairment. 19. Normocytic anemia. 20. Severe gait dysfunction. 21. Severe deconditioning. 22. History of bifascicular block, right bundle-branch block, left anterior hemiblock. 23. Cerebral cortical atrophy of the brain with periventricular subcortical white matter ischemic disease of the brain. 24. Atherosclerotic intracranial arterial disease. 25. Altered mental status and toxic metabolic encephalopathy, probably secondary to sepsis secondary to urinary tract infection with high-grade fever. 26. Dehydration and hypotension. 27. Toxic metabolic encephalopathy. 28. Anemia with decreasing hemoglobin and hematocrit. PLAN: At this time, we are awaiting further recommendations by the surgical team regarding surgical intervention for the sacral decubitus ulceration as needed. The patient was seen by hematology/oncology, psychiatry, nephrology, infectious disease. Their recommendation was noted. Plan at this time, the patient is to be continued on IV fluid. The patient has been ordered serial labs. The patient is started on heparin drip as per hematology recommendation. CURRENT CONSULTATION: Infectious disease, psychiatry, neurology, general surgery, nephrology, orthopedics, urology, podiatry, hematology/oncology. CURRENT MEDICATIONS: 1. Mucomyst for nebulizer 20% 4 mL q.6h. 2. Aricept 10 mg at bedtime. 3. Colace 200 mg daily. 4. Drisdol 50,000 units weekly. 5. Aspirin 81 mg p.o. daily. 6. The patient has been started on Eliquis as per the hematology recommendation. 7. The patient is started on iron, Ferrex 150 mg daily. 8. Flomax 0.4 mg daily. 9. Folic acid 1 mg daily. 10. Humalog medium dose sliding scale coverage. 11. Lac-Hydrin. 12. Ringer's lactate 150 mL an hour. 13. Lopressor 50 mg twice a day. 14. Meropenem 1 g IV q.12. 15. MiraLax 17 g daily. 16. Pepcid 20 mg daily. 17. Risperdal 1 mg daily. 18. Tylenol p.r.n. 19. Xopenex nebulizer 0.63 mg every 6 hours. 20. The patient has been ordered an MRI of the lumbar spine and pelvis for evaluation of osteomyelitis. It is not done. Chest PT ordered. Dysphagia/modified consistency diet ordered. The patient's family, Yue Tadeo, has not responded to my phone calls after leaving messages x2. At present, the patient will be continued on the above therapeutic intervention. The patient was seen yesterday by the infectious disease regarding IV antibiotic duration, which according to Dr. Akhtar. Recommend MRI which is ordered. If the patient is able to get it, they were to complete the MRI. Overall, the patient's prognosis is guarded to poor because of underlying multiple comorbidities and decompensated state and condition. Dictated and electronically signed, not read. Eliezer Hanna MD MTDD
--- NOTE | 2017-09-08 23:36 | CON ---
DATE: 09/08/2017 REASON FOR CONSULTATION: Right hip dislocation. HISTORY OF PRESENT ILLNESS: This is a 76-year-old gentleman, approximately 4 to 6 weeks postoperatively the patient developed a right hip dislocation and subsequently underwent a closed reduction. The patient then subsequently re-dislocated the right hip, and after a long discussion with the patient's daughter, who was the next kin, the decision was made not to treat the patient with the revision right hip replacement secondary to the fact that the patient was essentially nonambulatory. The patient subsequently was admitted on 09/05/2017 and was diagnosed with a urinary tract infection as well as a sacral decubitus ulcer. I was consulted because on admission on CT of the abdomen and pelvis, the right hip prosthesis was dislocated. On exam today, the patient is awake, but lethargic. He responds appropriately to some questions. The patient is in the bed. His right lower extremity is adducted, and hip flexed and his knee is flexed. He has a small Tegaderm over the lateral aspect of right thigh. This is an area where he presumably had the right hip abduction brace. Otherwise his incision is completely healed. There is no cellulitis. There is no fluctuance. His thigh is otherwise soft and nontender. X-ray of the right hip again shows a dislocated right hip hemiarthroplasty. PLAN: At this point, I spoke with the daughter, Yue, who again agrees that she does not want any surgical intubation for his right hip dislocation. For now, I recommended continue medical management. General Surgery, is on board for management of sacral decubitus. For now, he remains bedridden with decubitus precautions. Fred Barron MD
[2017-09-09] MEDS: Acetylcysteine 20% Inhal Soln (4ml) IH SCH ×4 (01:26→21:09)
[2017-09-09] MEDS: Levalbuterol 0.63 MG/3 ML Inhal Soln UD IH SCH ×4 (01:27→21:10)
[2017-09-09] MEDS: Lactated Ringer's 1,000 ML IV SCH ×2 (02:38→09:42)
--- NOTE | 2017-09-09 03:01 | PN ---
DATE: SUBJECTIVE: The patient is in bed, in no acute distress, nontoxic. PHYSICAL EXAMINATION: Temperature is 98, blood pressure is 140/90, respiratory rate of 20, heart rate of 64. HEENT: Unremarkable. NECK: Supple. LUNGS: Has decreased breath sounds. HEART: Normal S1, S2. ABDOMEN: Soft, nontender. LABORATORY EXAMINATION: Reveals a white count of 18,300, hemoglobin of 10, platelets of 336. BUN of 74, creatinine of 2.9. Urinalysis is noted. Microbiology reveals a gram-negative tejal from the sacrum The Escherichia coli in the blood was from 09/05. Review of orders reveals the patient to be on meropenem. The Escherichia coli in the blood from 09/05 is reported to be pansensitive. ASSESSMENT AND PLAN: This is a 76-year-old male who was seen earlier today in room 575, bed 1, with severe sepsis with Escherichia coli bacteremia and osteomyelitis on CAT scan, questionable extension into the spine. We will continue the meropenem, pending the identification and sensitivity of the gram-negative tejal in the wound and will follow with you. Jose Jennings MD
[2017-09-09 08:09] LABS: HEMOGLOBIN 9.7 g/dL (14.0-18.0); MEAN CELL VOLUME 88.2 fl (80.0-105.0); MEAN PLATELET VOLUME 9.2 fl (7.0-11.0); RBC 3.23 10^6/uL (3.5-6.1); RED CELL DISTRIBUTION WIDTH 15.1 % (11.5-14.5); WHITE BLOOD COUNT 16.3 10^3/ul (4.5-11.0)
--- NOTE | 2017-09-09 08:11 | CON ---
DATE: 09/07/2017 GENITOURINARY CONSULTATION CHIEF COMPLAINT: Fever. HISTORY OF PRESENT ILLNESS: This is a 76-year-old male who is a resident of [facility]. Patient was transferred to [facility] for fever of greater than 102 degrees. Patient was given Tylenol; however, the fever continued. Patient has an extensive medical history. He has a history of the prostatic hypertrophy with chronic urinary retention. He has a chronic indwelling Mckeon catheter, which has been changed monthly. The patient is unable to provide any further history. History is obtained from the chart. PAST MEDICAL HISTORY: Significant for dementia, diabetes, hypertension, recurrent urinary tract infections, anemia, sepsis, pneumonia, atelectasis, obesity, prostatic hypertrophy, obstructive uropathy, heart block, anasarca. MEDICATIONS: Currently include Mucomyst, Aricept, Colace, Drisdol, Ecotrin, Eliquis, Flomax, folic acid, insulin, Lopressor, meropenem, MiraLax, Pepcid, Risperdal, Tylenol, and Xopenex. ALLERGIES: NO KNOWN DRUG ALLERGIES. FAMILY HISTORY: Noncontributory. SOCIAL HISTORY: No smoking or EtOH use. Patient is a alf resident. REVIEW OF SYSTEMS: These could not be obtained as the patient is unable to answer questions adequately; as per the history of present illness. PHYSICAL EXAMINATION: GENERAL: Patient is in bed. He is awake. He is responsive, but unable to provide any history. He appears in no acute distress. VITAL SIGNS: He is afebrile. Temperature of 96.8, pulse of 83, BP 130/70, respirations 20. He is contracted, lying in bed. ABDOMEN: Benign, nontender, no rebound or guarding. No CVA tenderness. GENITOURINARY: Phallus has a Mckeon catheter in place. 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 There is some minor purulent discharge around the Mckeon catheter. Scrotum has mild edema. Testes are bilaterally descended, nontender, no masses. Epididymis are normal. LABORATORY EXAMINATION: WBC count was 20 on admission; has gone up to 21.1. Creatinine 3.2 with a BUN of 68. Initial creatinine on admission was 2.9. Blood cultures grew E. coli. Urine culture grew multiple species, greater than 100,000 colonies per milliliter. On radiologic exam, patient had a CT scan of the chest, abdomen, and pelvis from 09/05, which showed large sacral decubital ulcer with osteomyelitis and soft tissue infection, possible extension into the spine, [id number] anasarca, malpositioned Mckeon catheter, enlarged prostate gland, no hydronephrosis. IMPRESSION: This is a 76-year-old male with multiple medical problems, currently with sepsis, osteomyelitis, urinary infection. Urologically, the current Mckeon catheter is draining well. It is unclear if it was replaced or chronically from having an indwelling Mckeon; it has been pulled into his urethra. PLAN: To continue antibiotics and current treatment. I will discuss with nursing whether the Mckeon catheter has been repositioned. If not, I will change his Mckeon catheter. Patient should continue treatment for his multitude of other medical problems as catheter has been indwelling and changed monthly. I do not think he needs to remain on tamsulosin as it does not appear he is going to have a voiding trial at any point soon and his condition is guarded. He remains critically ill. I will continue to follow the patient with you. Christiano Saunders MD
[2017-09-09] MEDS: Insulin Lispro (humaLOG) MEDIUM Coverage SC SCH ×4 (08:26→21:00)
[2017-09-09 08:29] LABS: INR 1.45 (0.93-1.08); PROTHROMBIN TIME 16.8 SECONDS (9.4-12.5)
[2017-09-09 08:32] LABS: ALB/GLOB RATIO 0.6 (1.1-1.8); ALBUMIN 2.1 g/dL (3.0-4.8); BILIRUBIN,DIRECT 0.5 mg/dL (0.0-0.4); CALCIUM 8.4 mg/dL (8.4-10.5); MAGNESIUM 2.2 mg/dL (1.7-2.2)
[2017-09-09] MEDS: Iron Complex Polysacch 150mg Cap PO SCH (10:28)
[2017-09-09] MEDS: Meropenem 1g/NS 100mL IVPB 1 GM/100 ML PIGGYBACK IVPB SCH (10:29)
[2017-09-09] MEDS: POLYETHYLENE GLYCOL 3350 17 GM/Dose PACKET PO SCH (10:29)
[2017-09-09] MEDS: Ammonium Lactate 12% Lotion (225 g) EXT SCH (10:31)
[2017-09-09] MEDS ORDERED: Heparin25000 units/250ml 1/2NS 25,000 UNITS/250 ML BAG IV PRN (11:15)
--- NOTE | 2017-09-09 14:00 | PN ---
DATE: 09/09/2017 SUBJECTIVE: The patient is in bed, in no acute distress, was seen early this morning in 575, bed 1. No fevers and no chills. PHYSICAL EXAMINATION: VITAL SIGNS: Temperature is 98, blood pressure is 130/70, respiratory rate of 20, heart rate of 64. HEENT: Examination of HEENT is unremarkable. NECK: Supple. LUNGS: Have decreased breath sounds. HEART: Normal S1 and S2. ABDOMEN: Soft. LABORATORY DATA: Laboratory examination revealed the white count to be 16,300, hemoglobin of 9, platelets of 315. Coagulation is noted. Chemistries reveals a BUN of 75, creatinine of 3.0. Procalcitonin 16. Urinalysis is noted. Serology is negative. Microbiology reveals pansensitive Proteus mirabilis and pansensitive E. coli in blood. Dr. Hanna's progress note is reviewed. ASSESSMENT AND PLAN: A 76-year-old male who was seen early this morning in 575, bed 1 with severe sepsis, Escherichia coli bacteremia with probably secondary to urine and also Proteus mirabilis from the sacrum with osteomyelitis. There is pansensitive Proteus, pansensitive Escherichia coli. We will discontinue the meropenem and treat with ceftriaxone 2 g daily x 28 days because of the osteomyelitis with a weekly CBC, SMA-18, sed rate, C-reactive protein. Overall prognosis is quite poor. We will follow with you. Jose Jennings MD
--- NOTE | 2017-09-09 17:06 | PN ---
DATE: 09/09/2017 SUBJECTIVE: The patient is seen lying in bed. He is minimally responsive at this time. PHYSICAL EXAMINATION: GENERAL: Elderly male, lying in bed. VITAL SIGNS: Blood pressure 138/67, heart rate 77, respiratory rate 18, temperature 98.6. HEENT: Normocephalic, atraumatic. NECK: Supple, no JVD. LUNGS: Bilateral equal air entry, bilateral equal expansion, no rales. CARDIAC: S1 and S2, regular rate and rhythm, no murmur, no rub. ABDOMEN: Obese, distended, soft, nontender, bowel sounds present. EXTREMITIES: No lower extremity edema, dry skin, chronic stasis changes. INTAKE AND OUTPUT: 300/200. LABORATORY DATA: WBC 16, hemoglobin 9.7, hematocrit 28.5, platelets 315. Sodium 135, potassium 3.8, chloride 105, CO2 of 22, BUN 75, creatinine 3.0, glucose 230, calcium 8.4, phosphorus 4.1, magnesium 2.2. CURRENT MEDICATIONS: Mucomyst, Aricept, Colace, Drisdol, Ecotrin, Ferrex, Flomax, folic acid, heparin 18 units per kg per hour, insulin, Ringer lactated 150, Lopressor 50 b.i.d., meropenem 1 g q. 12, MiraLax, Pepcid, Risperdal, Tylenol, Eliquis. ASSESSMENT: 1. Acute kidney injury superimposed on chronic kidney disease stage 2. Workup consistent with acute tubular necrosis in the setting of Escherichia coli septicemia, infected decubitus ulcer, osteomyelitis. 2. Altered mental status secondary to sepsis. 3. Sacral decubitus with osteomyelitis. 4. Deep venous thrombosis in the upper extremity. 5. [id number] diabetes mellitus. 6. Hypertension. 7. History of bipolar disorder. 8. History of benign prostatic hypertrophy and chronic Mckeon. 9. Coronary artery disease. PLAN: 1. Continue IV fluids, needs accurate I's and O's. The patient is on IV fluids at 150, but intake only reflects 500 mL. 2. Continue antibiotics. 3. Dose all antibiotics for creatinine clearance about 30 mL/minute. 4. Avoid nephrotoxins. 5. Monitor electrolytes. Brunilda Argueta MD
--- NOTE | 2017-09-09 22:36 | CP.PCM.PN ---
Subjective - Date & Time of Evaluation Date of Evaluation: 09/09/17 Time of Evaluation: 18:00 - Subjective Subjective: No complaints, appears comfortable Objective - Vital Signs/Intake and Output Vital Signs (last 24 hours): Temp Pulse Resp BP Pulse Ox 98.6 F 78 18 104/52 L 99 09/09/17 07:30 09/09/17 17:33 09/09/17 07:30 09/09/17 17:33 09/09/17 07:30 Intake and Output: 09/09/17 09/10/17 18:59 06:59 Intake Total 640 Output Total 500 Balance 140 - Medications Medications: Current Medications Acetaminophen (Tylenol 325mg Tab) 650 mg PO Q4 PRN PRN Reason: FOR TEMP>=99.5F Acetaminophen (Tylenol 650 Mg Supp) 650 mg RC Q4H PRN PRN Reason: FEVER>=99.5F Acetylcysteine (Acetylcysteine 20%) 4 ml IH [id number] [facility] Last Admin: 09/09/17 21:09 Dose: 4 ml Apixaban (Eliquis) 5 mg PO BID [facility] PRN Reason: Protocol Last Admin: 09/09/17 20:16 Dose: 5 mg Aspirin (Ecotrin) 81 mg PO DAILY [facility] Last Admin: 09/09/17 10:28 Dose: 81 mg Docusate Sodium (Colace) 200 mg PO QPM [facility] Last Admin: 09/09/17 17:34 Dose: Not Given Donepezil HCl (Aricept) 10 mg PO HS [facility] Last Admin: 09/09/17 22:09 Dose: 10 mg Ergocalciferol (Drisdol 50,000 Intl Units Cap) 1 cap PO MON [facility] Last Admin: 09/07/17 10:29 Dose: 1 cap Famotidine (Pepcid) 20 mg PO DAILY [facility] Last Admin: 09/09/17 10:28 Dose: 20 mg Folic Acid (Folic Acid) 1 mg PO DAILY [facility] Last Admin: 09/09/17 10:28 Dose: 1 mg Lactated Ringer's (Lactated Ringer's) 1,000 mls @ 150 mls/hr IV .[id number] [facility] Last Admin: 09/09/17 09:42 Dose: 150 mls/hr Ceftriaxone Sodium (Rocephin 2 Gm Ivpb) 2 gm in 100 mls @ 100 mls/hr IVPB DAILY [facility] PRN Reason: Protocol Stop: 10/08/17 10:01 Insulin Human Lispro (Humalog Med) 0 units SC ACHS [facility] PRN Reason: Protocol Last Admin: 09/09/17 17:33 Dose: 3 units Lactic Acid (Lac-Hydrin 12% Lotion (225 G)) 0 gm EXT DAILY [facility] Last Admin: 09/09/17 10:31 Dose: 1 applic Levalbuterol HCl (Xopenex) 0.63 mg IH [id number] [facility] Last Admin: 09/09/17 21:10 Dose: 0.63 mg Metoprolol Tartrate (Lopressor) 50 mg PO BID [facility] Last Admin: 09/09/17 17:33 Dose: Not Given Polyethylene Glycol (Miralax) 17 gm PO DAILY [facility] Last Admin: 09/09/17 10:29 Dose: 17 gm Polysaccharide Iron Complex (Ferrex-150) 150 mg PO DAILY [facility] Last Admin: 09/09/17 10:28 Dose: 150 mg Risperidone (Risperdal Tab) 1 mg PO DAILY [facility] PRN Reason: Protocol Last Admin: 09/09/17 10:28 Dose: 1 mg Tamsulosin HCl (Flomax) 0.4 mg PO DAILY [facility] Last Admin: 09/09/17 10:28 Dose: 0.4 mg - Labs Labs: 09/09/17 07:30 09/09/17 07:30 PT 16.8 SECONDS (9.4-12.5) H 09/09/17 07:30 INR 1.45 (0.93-1.08) H 09/09/17 07:30 APTT 75.4 Seconds (25.1-36.5) H 09/09/17 19:36 - Head Exam Head Exam: ATRAUMATIC - Eye Exam Eye Exam: Normal appearance - ENT Exam ENT Exam: Mucous Membranes Dry - Respiratory Exam Respiratory Exam: NORMAL BREATHING PATTERN - Cardiovascular Exam Cardiovascular Exam: +S1, +S2 - GI/Abdominal Exam GI & Abdominal Exam: Normal Bowel Sounds Assessment and Plan (1) Deep vein thrombosis Assessment & Plan: suspect provoked from immobility ? recent line placement on Eliquis for minimum of 3 months duration Status: Acute (2) Coagulopathy Assessment & Plan: anticoagulation Status: Acute (3) Anemia Assessment & Plan: chronic disease, renal disease procrit to decrease transfusion dependence Status: Acute (4) Leukocytosis Assessment & Plan: improving with antibiotics Status: Acute
[2017-09-10] MEDS: Levalbuterol 0.63 MG/3 ML Inhal Soln UD IH SCH ×4 (03:20→20:31)
[2017-09-10] MEDS: Acetylcysteine 20% Inhal Soln (4ml) IH SCH ×4 (03:20→20:31)
--- NOTE | 2017-09-10 03:30 | PN ---
DATE: 09/09/2017 SUBJECTIVE: Patient is seen lying in the bed in room 575, bed 1. Patient was seen early in the morning today. Patient is seen lying in the bed. Overnight nurse's notes were reviewed. Patient underwent and completed the MRI. Patient was found to be alert, awake, oriented x1 by the nurses. Patient is seen lying in the bed. Patient is alert, awake, and responsive. Is able to say his name; disoriented to year, date, month, place. PHYSICAL EXAMINATION: VITAL SIGNS: T-max 98.6, pulse 77 to 78, blood pressure 104/52, 138/67, 138/67, 145/90. Respiration 18, O2 sat 99%. Output yesterday was 200. Today is 200 and 500, total of 700. HEENT: Head: Normocephalic, atraumatic. HEENT: Shows pinkish pale conjunctiva, positive blindness. No oropharyngeal lesion. Dry oral mucosa. No neck rigidity. Soft carotid bruit. CHEST: Kyphosis. LUNGS: Shows occasional rhonchi, bilateral lung quiros. CARDIOVASCULAR: S1, S2, regular rhythm. Positive systolic murmur, left sternal border, right second intercostal space. ABDOMEN: Protuberant. Positive bowel sounds. Distended abdomen. GENITALIA: Male. Positive Mckeon catheter. EXTREMITIES: Show positive flexion contractures of upper and lower extremity. Positive swelling of the upper extremities. MUSCULOSKELETAL: Shows a body mass index of 27. NEUROLOGICAL: Cranial nerves II through XII limited. Gait examination is not tested. Patient is bedridden. DIAGNOSTIC STUDIES: On 09/09, WBC count 16.3, hemoglobin/hematocrit 9.7/28.5, platelet 315. Sodium 135, potassium 3.8, chloride 105, CO2 of 22, anion gap 11, BUN 75, creatinine 3.0, GFR 25, glucose 230, calcium 8.4, phosphorus 4.1, magnesium 2.2, alk phos 134, total protein 5.4, albumin 2.1. PSA 15. Sacral decubitus wound culture is Proteus mirabilis. Patient received 2 units of PRBC. IMPRESSION: 1. Sacral decubitus ulceration and abscess secondary to Proteus mirabilis and Proteus mirabilis sacral decubitus ulceration and abscess. 2. Mixed species urinary tract infection. 3 High-grade fever. 4. Tachycardia. 5. Hypotension and hypertension. 6. Bilateral blindness. 7. Flexion contractures of upper and lower extremity. 8. Leukocytosis with granulocytosis and bandemia. 9. Normocytic anemia. 10. Elevated erythrocyte sedimentation rate of greater than 130. 11. Mild coagulopathy. 12. Acute renal failure, acute kidney injury with chronic kidney disease, stage IV. 13. Protein malnutrition. 14. Hypoalbuminemia. 15. Elevated prostate-specific antigen of 15. 16. Hyperbilirubinemia. 17. Well-controlled insulin-requiring diabetes mellitus with hemoglobin A1c of 6.7. 18. Hyperuricemia. 19. Iron deficiency. 20. Proteinuria, ketonuria, hematuria, bacteriuria, pyuria, and multiple species urinary tract infection. 21. Status post packed red blood cells transfusion x2. 22. Pelvic free fluid and stranding of the intrapelvic fat. 23. Scrotal swelling. 24. Prostatomegaly. 25. Bone marrow edema of the anterior inferior iliac spine on the right side, questionable reactive versus post-traumatic. 26. Pelvic bone marrow nonspecific heterogeneous signal intensity, suggestive of nonspecific increase in the cellular content in the marrow or red marrow reconversion. 27. Postoperative right hip changes. 28. Sacral decubitus ulceration with adjacent soft tissue swelling. 29. Pelvic and proximal thigh diffuse edema consistent with anasarca. 30. Questionable muscle strain of myositis with diffuse muscle edema. 31. Sacral decubitus ulceration with adjacent soft tissue swelling and left posterior paraspinal musculature and lumbosacral junction abscess and phlegmonous changes of the left lateral thigh. 32. Anasarca with diffuse edematous changes of the subcutaneous tissue of the pelvis and proximal thighs. 33. Left renal cyst. 34. Left adrenal nodular thickening. 35. Degenerative joint disease of the lower thoracic spine. 36. Lumbar spine degenerative disk disease, neural foraminal narrowing, foraminal stenosis, bilateral facet arthropathy. 37. Right bundle-branch block, left anterior hemiblock, bifascicular block. 38. Underlying chronic kidney disease, stage II/III. 39. Acute tubular necrosis. 40. Left upper extremity subclavian deep venous thrombosis and right upper extremity basilic vein deep venous thrombosis. 41. Escherichia coli bacteremia with severe sepsis. 42. Severe gait dysfunction and bedridden status and functional quadriplegia. 1. Severe sepsis secondary to Escherichia coli bacteremia and sepsis, probably secondary to urinary tract infection. 2. Possible sacral osteomyelitis with sacral decubitus ulceration, stage II/III. 3. Hypertension. 4. Visual impairment. 5. Dementia and delirium. 6. High-grade fever of 103 degrees Fahrenheit. 7. Leukocytosis with granulocytosis and bandemia. 8. Elevated erythrocyte sedimentation rate of greater than 130. 9. Normocytic anemia. 10. Status post packed red blood cell transfusion. 11. Coagulopathy. 12. Acute renal failure, acute kidney injury, etiology undetermined. 13. Insulin-requiring well-controlled diabetes mellitus with hemoglobin A1c of 6.7. 14. Iron deficiency. 15. Transaminitis. 16. Hypoalbuminemia. 17. Elevated prostate-specific antigen of greater than 15. 18. Hyperprocalcitoninemia. 19. Hyperglycemia. 20. Severe deconditioning, gait dysfunction, and possible functional quadriplegia. 21. Acute on chronic right hip dislocation. 22. Proteinuria, hematuria, pyuria, bacteriuria 23. Escherichia coli bacteremia and sepsis. 24. Multi species urinary tract infection. 25. Status post 2 units of PRBC transfusion. 26. Abnormal EEG with bihemispheric cerebral dysfunction. 27. Questionable provoked left subclavian deep venous thrombosis secondary to mobility versus IV access verses occult malignancy. 28. Coagulopathy. 29. Anemia. 30. Increased uptake of the right hip consistent with right total hip bipolar component dislocation. 31. Increased uptake left femur. 32. Degenerative joint changes of the right sternoclavicular joint. 33. Acute hypoechoic adherent partially occlusive left subclavian vein thrombosis. 34. Adherent nonocclusive thrombus in the right basilic vein. 35. Anasarca. 36. Diffuse soft tissue stranding and thickening within the subcutaneous tissue along sacrum/coccyx with air cluster and fluid within the adjacent left lower paravertebral musculature with air overlying subcutaneous tissue with foci of air within the spinal canal of the lower lumbar spine and sacrum. 37. History of right hip surgery and arthroplasty. 38. Right hip joint dislocation. 39. Right hip joint moderate heterotrophic ossification and minimal heterotropic ossification of the left hip. 40. Hip joint effusion. 41. Degenerative joint disease of the spine. 42. Diverticulosis of the colon. 43. Rectal wall thickening. 44. Sacral decubitus ulceration with sacral coccygeal osteomyelitis with probable adjacent soft tissue infection along left paravertebral musculature with possible extension into the spine. 45. Moderate anasarca 46. Malposition Mckeon catheter. 47. Urinary retention. 48. Elevated prostate-specific antigen. 49. Voiding dysfunction. 50 Mucus plugging with atelectasis, scarring and pulmonary parenchyma with mosaic pattern with intralobular septal thickening. 51. Small bilateral pleural effusion. 52. Coronary artery calcification. 53. Degenerative joint disease of the spine. 54. Minimal left gynecomastia. 55. Elevated left hemidiaphragm. 56. Hepatic cystic *------* bilateral perinephric stranding and bilateral renal cyst. 57. Colonic diverticulosis. 58. Prostatomegaly. 59. 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 60. Bilateral cerebral hemispheric dysfunction. 61. Severe sepsis. 62. Dementia. 63. Toxic metabolic encephalopathy and altered mental status. 1. Gram-negative tejal bacteremia and sepsis. 2. Questionable urinary tract infection secondary to multiple urinary tract species. 3. Hypertension. 4. Severe gait dysfunction and deconditioning and bedridden status and possible functional quadriplegia. 5. Leukocytosis with granulocytosis and bandemia. 6. Normocytic anemia. 7. Elevated erythrocyte sedimentation rate of 136. 8. Elevated reticulocyte count of 1.69. 9. Visual impairment. 10. Mild coagulopathy. 11. Acute kidney injury and acute renal failure. 12. Well-controlled insulin-requiring diabetes mellitus with hemoglobin A1c of 6.7. 13. Iron-deficiency anemia. 14. Transaminitis. 15. Hypoalbuminemia. 16. Hyperuricemia. 17. Hyperbilirubinemia. 18. Hyperprocalcitoninemia. 19. Proteinuria, ketonuria, microscopic hematuria, pyuria, bacteriuria. 20. B negative blood type. 21. Status post 2 units of packed red blood cells. 22. 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 23. Degenerative joint disease and increased uptake on the right hip consistent with dislocated right total hip. 24. Increased uptake of the left femur and degenerative joint disease of the right sternoclavicular joint. 25. Left subclavian vein deep venous thrombosis. 26. Left subclavian vein acute hypoechoic adherent partially occlusive thrombosis, provoked from immobility and possible IV access. 27. Right basilic vein adherent nonocclusive thrombosis. 28. Upper and lower extremity flexion contractures. 29. Cerebral cortical atrophy of the brain. 30. Bedridden status and functional quadriplegia. 31. Intracranial atherosclerotic disease. 32. Left mastoid partial opacification with mild mucosal sinus thickening of the sinuses. 33. Status post packed red blood cell transfusion x2. 34. Hypovitaminosis D. 35. Prostatic hypertrophy. 36. Urinary retention. 37. Elevated prostate-specific antigen of 15, questionable occult malignancy. 38. Anemia of chronic disease. 39. Sacral decubitus ulceration, stage 2. 40. Unspecified dementia. 41. Mild oropharyngeal dysphagia. 42. Mild oral dysphagia. 43. Altered mental status. 44. Flexion contractures of upper and lower extremity. 45. Toxic metabolic encephalopathy. 46. High grade fever. 47. Severe sepsis. 48. Questionable sacral coccygeal osteomyelitis with extension into the soft tissue and left paravertebral musculature with possible extension into the spine. 49. Constipation. 50. Prostatic hypertrophy with urinary retention. 1. High-grade fever. 2. Gram-negative tejal bacteremia and sepsis. 3. Stage II to III sacral decubitus ulceration. 4. Hypotension. 5. Leukocytosis with granulocytosis and bandemia. 6. Elevated erythrocyte sedimentation rate of 136. 7. Mild coagulopathy. 8. Acute kidney injury. 9. Insulin-requiring diabetes mellitus with hemoglobin A1c of 6.7. 10. Iron-deficiency anemia. 11. Transaminitis. 12. Hypoalbuminemia. 13. Severe gait dysfunction and bedridden status. 14. Sacral decubitus ulceration. 15. Hyperuricemia. 16. Hyperbilirubinemia. 17. Hyperprocalcitoninemia. 18. Proteinuria, microscopic hematuria, pyuria, bacteriuria. 19. Right femur dislocation from [place] acetabulum. 20. 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 21. Bilateral hip joint effusion and heterotrophic ossification of the right hip joint and left hip joint. 22. Degenerative joint disease of the spine. 23. Posterior sacral coccyx erosion. 24. Colonic diverticulosis. 25. 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 26. [id number] anasarca. 27. Urinary retention. 28. Mucus plugging and bilateral atelectasis. 29. Interlobular septal thickening. 30. Coronary artery calcification. 31. Degenerative joint disease of spine. 32. Mild left gynecomastia. 33. Elevated left hemidiaphragm. 34. Questionable interstitial edema and anasarca. 35. Bilateral renal cyst. 36. Colonic diverticulosis. 37. Prostatomegaly. 38. Right hip arthroplasty with dislocation of the right hip joint and moderate heterotrophic ossification about the right hip joint. 39. Anasarca. 40. Bilateral perinephric stranding and bilateral renal cyst. 41. Cerebral cortical atrophy of the brain. 42. Periventricular subcortical white matter disease of the brain. 43. Atherosclerotic intracranial arterial disease. 44. Left mastoid partial opacification. 45. Gait dysfunction. 46. Severe deconditioning. 47. Insulin-requiring diabetes mellitus. 48. Anemia, etiology undetermined. 49. Iron-deficiency anemia, etiology undetermined. 50. Incomplete right bundle branch block, left anterior hemiblock, bifascicular block. 51. Mild oral dysphagia. 1. High-grade fever of greater than 103 degrees Fahrenheit. 2. Tachycardia. 3. Hypertension and hypotension. 4. Questionable and probable sepsis. 5. Leukocytosis with granulocytosis and bandemia. 6. Normocytic anemia with decreasing hemoglobin and hematocrit. 7. Mild coagulopathy. 8. Acute renal failure, acute kidney injury. 9. Hypoglycemia. 10. Hyperuricemia. 11. Iron-deficiency normocytic anemia. 12. Transaminitis. 13. Protein malnutrition and hypoalbuminemia. 14. Sepsis with urinary tract infection with proteinuria, ketonuria, microscopic hematuria, pyuria, bacteriuria. 15. History of right hip subcapital fracture open reduction and right hip hemiarthroplasty. History of right femoral neck right hip subcapital fracture, status post surgery. 16. Dementia. 17. Psychosis. 18. Visual impairment. 19. Normocytic anemia. 20. Severe gait dysfunction. 21. Severe deconditioning. 22. History of bifascicular block, right bundle-branch block, left anterior hemiblock. 23. Cerebral cortical atrophy of the brain with periventricular subcortical white matter ischemic disease of the brain. 24. Atherosclerotic intracranial arterial disease. 25. Altered mental status and toxic metabolic encephalopathy, probably secondary to sepsis secondary to urinary tract infection with high-grade fever. 26. Dehydration and hypotension. 27. Toxic metabolic encephalopathy. 28. Anemia with decreasing hemoglobin and hematocrit. PLAN: At this time, I have discussed the case with Surgery. There is no plan for surgical intervention for the sacral decubitus abscess. Surgery will continue with daily wound cleaning as the patient's sacral abscess is draining and wound packing. Patient has been ordered serial labs. Patient is seen by Infectious Disease. IV antibiotic switched over to Rocephin 2 g IV daily x28 days with weekly CBC, CMP, ESR, C-reactive protein. Patient has been ordered serial labs. CURRENT CONSULTATION: 1. Infectious Disease. 2. Psychiatry. 3. Neurology. 4. Surgery. 5. Nephrology. 6. Orthopedics. 7. Urology. Patient is seen by Dr. Barron. CURRENT MEDICATIONS: 1. Mucomyst nebulizer every 6 hours. 2. Xopenex nebulizer 0.63 mg every 6 hours. 3. Aricept 10 mg at bedtime. 4. Colace 200 mg daily. 5. Drisdol 50,000 units weekly. 6. Aspirin 81 mg daily. 7. Patient has been started on Eliquis 5 mg twice a day. 8. Patient is on Niferex 150 daily. 9. Flomax 0.4 mg daily. 10. Folic acid 1 mg daily. 11. Humalog sliding scale, medium a.c. and at bedtime. 12. Ringer's lactate 150 mL an hour. 13. Lopressor 50 mg twice a day. 14. MiraLax 17 g daily. 15. Pepcid 20 mg daily. 16. Risperdal 1 mg daily. 17. Rocephin 2 g IV daily for 4 weeks. 18. Tylenol p.r.n. suppository. Chest PT. Dysphagia, modified-consistency diet. At present, we will await further recommendation from Surgery, Infectious Disease, Nephrology, Neurology, Psychiatry, Urology, Podiatry, and Hematology/Oncology. I have discussed and explained to the patient's daughter, Yue, about the patient's condition, diagnosis, overall [id number] condition which she acknowledged to understand. I have also met with the patient's daughter today in the hospital. I have explained all the diagnostic test results and recommendation by all the physician involved in the care of the patient to the patient's daughter at length and all questions concerned answered, which she acknowledged to understand. In addition, I have extensively and very clearly explained to the patient's daughter about the patient's overall [id number] prognosis because of complicated medical condition and declining overall health, which she acknowledged to understand. Patient's daughter was also advised about preparing an advanced directive and living will regarding which patient's daughter, Yue, stated that she has to discuss with the other siblings. At present, patient will be continued on the above therapeutic intervention. Once the patient is stabilized and cleared by all subspecialty, patient will be considered for discharge back to [facility]. Dictated and electronically signed, not read. Eliezer Hanna MD [email or web address]
[2017-09-10] MEDS: Lactated Ringer's 1,000 ML IV SCH ×3 (06:23→19:07)
[2017-09-10] MEDS: Insulin Lispro (humaLOG) MEDIUM Coverage SC SCH ×4 (08:00→22:53)
[2017-09-10 08:30] LABS: HEMOGLOBIN 9.4 g/dL (14.0-18.0); MEAN CORPUSCULAR HEMOGLOBIN 29.7 pg (25.0-35.0); MEAN CORPUSCULAR HGB CONC 33.3 g/dl (31.0-37.0); MEAN PLATELET VOLUME 9.1 fl (7.0-11.0); RBC 3.17 10^6/uL (3.5-6.1); RED CELL DISTRIBUTION WIDTH 15.3 % (11.5-14.5); WHITE BLOOD COUNT 15.4 10^3/ul (4.5-11.0)
[2017-09-10 08:39] LABS: INR 1.6 (0.93-1.08); PROTHROMBIN TIME 18.6 SECONDS (9.4-12.5)
[2017-09-10 08:40] LABS: PARTIAL THROMBOPLASTIN TIME 31.3 Seconds (25.1-36.5)
[2017-09-10 08:48] LABS: ALB/GLOB RATIO 0.6 (1.1-1.8); ALBUMIN 2.1 g/dL (3.0-4.8); BILIRUBIN,DIRECT 0.5 mg/dL (0.0-0.4); CALCIUM 8.2 mg/dL (8.4-10.5)
--- NOTE | 2017-09-10 09:52 | CP.PCM.PN ---
<TiffanieJoséy - Last Filed: 09/10/17 11:19> Subjective - Date & Time of Evaluation Date of Evaluation: 09/10/17 Time of Evaluation: 07:10 - Subjective Subjective: Medicine Progress note. Dr. Hanna Pt seen and examined at bedside. No acute events reported overnight. Patient is somnolent this morning but easily arousable. Answers few questions appropriately. No acute distress. Objective - Vital Signs/Intake and Output Vital Signs (last 24 hours): Temp Pulse Resp BP Pulse Ox 97.2 F L 63 20 115/63 98 09/10/17 07:43 09/10/17 07:43 09/10/17 07:43 09/10/17 07:43 09/10/17 07:43 Intake and Output: 09/10/17 09/10/17 06:59 18:59 Intake Total 1947 Output Total 225 Balance 1722 - Medications Medications: Current Medications Acetaminophen (Tylenol 325mg Tab) 650 mg PO Q4 PRN PRN Reason: FOR TEMP>=99.5F Acetaminophen (Tylenol 650 Mg Supp) 650 mg RC Q4H PRN PRN Reason: FEVER>=99.5F Acetylcysteine (Acetylcysteine 20%) 4 ml IH [id number] [facility] Last Admin: 09/10/17 08:00 Dose: 4 ml Apixaban (Eliquis) 5 mg PO BID [facility] PRN Reason: Protocol Last Admin: 09/09/17 20:16 Dose: 5 mg Aspirin (Ecotrin) 81 mg PO DAILY [facility] Last Admin: 09/09/17 10:28 Dose: 81 mg Docusate Sodium (Colace) 200 mg PO QPM [facility] Last Admin: 09/09/17 17:34 Dose: Not Given Donepezil HCl (Aricept) 10 mg PO HS [facility] Last Admin: 09/09/17 22:09 Dose: 10 mg Ergocalciferol (Drisdol 50,000 Intl Units Cap) 1 cap PO MON [facility] Last Admin: 09/07/17 10:29 Dose: 1 cap Famotidine (Pepcid) 20 mg PO DAILY [facility] Last Admin: 09/09/17 10:28 Dose: 20 mg Folic Acid (Folic Acid) 1 mg PO DAILY [facility] Last Admin: 09/09/17 10:28 Dose: 1 mg Lactated Ringer's (Lactated Ringer's) 1,000 mls @ 150 mls/hr IV .Q6H40M [facility] Last Admin: 09/10/17 06:23 Dose: 150 mls/hr Ceftriaxone Sodium (Rocephin 2 Gm Ivpb) 2 gm in 100 mls @ 100 mls/hr IVPB DAILY [facility] PRN Reason: Protocol Stop: 10/08/17 10:01 Insulin Human Lispro (Humalog Med) 0 units SC ACHS [facility] PRN Reason: Protocol Last Admin: 09/09/17 21:00 Dose: Not Given Lactic Acid (Lac-Hydrin 12% Lotion (225 G)) 0 gm EXT DAILY [facility] Last Admin: 09/09/17 10:31 Dose: 1 applic Levalbuterol HCl (Xopenex) 0.63 mg IH [id number] [facility] Last Admin: 09/10/17 08:00 Dose: 0.63 mg Metoprolol Tartrate (Lopressor) 50 mg PO BID [facility] Last Admin: 09/09/17 17:33 Dose: Not Given Polyethylene Glycol (Miralax) 17 gm PO DAILY [facility] Last Admin: 09/09/17 10:29 Dose: 17 gm Polysaccharide Iron Complex (Ferrex-150) 150 mg PO DAILY [facility] Last Admin: 09/09/17 10:28 Dose: 150 mg Risperidone (Risperdal Tab) 1 mg PO DAILY [facility] PRN Reason: Protocol Last Admin: 09/09/17 10:28 Dose: 1 mg Tamsulosin HCl (Flomax) 0.4 mg PO DAILY [facility] Last Admin: 09/09/17 10:28 Dose: 0.4 mg - Labs Labs: 09/10/17 08:00 09/10/17 08:00 PT 18.6 SECONDS (9.4-12.5) H 09/10/17 08:00 INR 1.60 (0.93-1.08) H 09/10/17 08:00 APTT 31.3 Seconds (25.1-36.5) 09/10/17 08:00 - Constitutional Appears: Non-toxic, No Acute Distress - Head Exam Head Exam: ATRAUMATIC, NORMAL INSPECTION, NORMOCEPHALIC - Eye Exam Eye Exam: EOMI - ENT Exam ENT Exam: Mucous Membranes Moist - Respiratory Exam Respiratory Exam: Clear to Ausculation Bilateral, NORMAL BREATHING PATTERN. absent: Accessory Muscle Use, Wheezes, Respiratory Distress - Cardiovascular Exam Cardiovascular Exam: RRR. absent: JVD - GI/Abdominal Exam GI & Abdominal Exam: Soft. absent: Distended, Firm, Guarding, Rigid, Tenderness , Rebound - Extremities Exam Additional comments: Bilateral upper extremity edema noted. - Psychiatric Exam Psychiatric exam: Normal Affect, Normal Mood - Skin Skin Exam: Dry, Intact, Normal Color, Warm Assessment and Plan - Assessment and Plan (Free Text) Assessment: 76yo M with PMHx of HTN, DM, Obesity, E. Coli Bacteremia, possible sacral osteomyelitis, sacral decubitus and left paralumbar draining abscess. Hospital course complicated by left subclavian DVT and right superficial basilic vein thrombophlebitis. Leukocytosis improving on current regimen. Would need Rocephin 2g IV for at least 28 days. Awaiting PICC line placement. Patient with chronic right hip dislocation, family requesting no surgical intervention. Dispo: Once medically stable, we will plan to D/C to [place] at [facility] 1. Possible Sacral Osteomyelitis - ID following, appreciate recs - Leukocytosis improving - Wound cx: Proteus - Continue Rocephin 2g IV for at least 28 days. - Will need PICC line. Dr. Keith Cardona, Interventional Radiology consulted. 2. E.Coli Bacteremia - Repeat Blood Cxs: NGTD @72 hrs - ID following - On Rocephin long-term, see above 3. Left paraspinal Abscess. Sacral Decub - Surgery following, appreciate recs - Daily wound care and gentle debridement - Left paraspinal abscess actively draining. No plans for acute surgical intervention 4. Upper Extremity DVT - Likely provoked from immobility - Left subclavian DVT and Right Superficial Basilic vein thrombophlebitis. - Hematology following, appreciate recs - On Eliquis. Recommend continuing for at least 3 months. - Recommend upper extremity TEDs 5. Hx of Chronic hip dislocation - Family electing for conservative management 6. Acute on Chronic Kidney Injury - Nephrology following, appreciate recs - Continue IVF - Strict I&Os - Daily Weights 7. Hx of HTN, DM, and Dementia - Accuchecks - ISS Medium dose protocol - Continue home meds 8. Ppx - Pepcid - TEDs - SCDs - On Eliquis Further recs as per Dr. Jacques Moreno PGY1 <Jacques,Eliezer U - Last Filed: 09/18/17 14:26> Objective - Vital Signs/Intake and Output Vital Signs (last 24 hours): Temp Pulse Resp BP Pulse Ox 99.4 F 65 18 148/77 99 09/16/17 18:28 09/16/17 18:48 09/16/17 18:28 09/16/17 18:48 09/16/17 16:00 - Labs Labs: 09/16/17 07:00 09/16/17 07:00 PT 14.8 SECONDS (9.4-12.5) H 09/16/17 07:00 INR 1.28 (0.93-1.08) H 09/16/17 07:00 APTT 31.1 Seconds (25.1-36.5) 09/16/17 07:00 Attending/Attestation - Attestation I have personally seen and examined this patient.: Yes I have fully participated in the care of the patient.: Yes I have reviewed all pertinent clinical information, including history, physical exam and plan: Yes Notes (Text): Please read/see my dictated notes.
[2017-09-10] MEDS: Iron Complex Polysacch 150mg Cap PO SCH (10:17)
[2017-09-10] MEDS: POLYETHYLENE GLYCOL 3350 17 GM/Dose PACKET PO SCH (10:18)
[2017-09-10] MEDS: cefTRIAXone 2 GM IN NS 2 GM/100 ML BAG IVPB SCH (10:19)
[2017-09-10] MEDS: Ammonium Lactate 12% Lotion (225 g) EXT SCH (11:05)
[2017-09-10] MEDS ORDERED: Lidocaine 2% Inj (20ml) ONE (14:32)
[2017-09-10] MEDS ORDERED: HEPARIN SODIUM/NS 1,000 ML IV ONE (14:32)
--- NOTE | 2017-09-10 15:07 | PCM.FALL ---
<Alicja Wills - Last Filed: 09/10/17 15:12> Post Fall Progress Note - Post Fall Fall Date: 09/10/17 Fall Time: 14:32 - Post Fall Exam Vital Sign: Temp Pulse Resp BP Pulse Ox 97.2 F L 63 20 136/88 98 09/10/17 07:43 09/10/17 07:43 09/10/17 07:43 09/10/17 10:17 09/10/17 07:43 Skull Exam: Negative for: Scalp wound, Scalp hematoma, Scalp depression, Ridge in skull Eye Exam: Positive for: Pupils equal, Pupils reactive Ear Exam: Negative for: Discharge, Bleeding Nose Exam: Negative for: Discharge, Bleeding Skin Exam: Negative for: Bruising Mouth Exam: Negative for: Tongue bitten, Teeth dislodge Chest Exam: Negative for: Difficulty breathing Impression/Plan: [facility] was called at 2:32pm. I went to room immediately and saw patient was lying on the floor with transport and nurses at his side. As per transporters, patient was being moved from bed to stretcher when the stretcher malfunctioned and moved away from the patient who fell to the floor. Fall was witnessed and mechanical in nature. Transporters and nursing stated patient did not hit his head and it was a gradual fall to the ground. Patient did not have any LOC, bowel/bladder incontinence, biting of the tongue, frothing of the mouth. Patient was AO x 1 to self which as per nursing is baseline. He was lying on the floor not answering questions appropriately and was not following commands. Vitals on arrival as follows: BP 119/66 HR 86bpm. Patient was in no acute distress and airway was intact. Unable to assess if patient was in any pain as he is an unreliable historian. Patient is on eliquis so head CT was ordered and x-rays of the spine, b/l hip/pelvis, b/l knees, b/l shoulder, and elbows b/l Resident Dr. Moreno and Dr. Hanna are aware. Will follow up imaging. <Eliezer Hanna - Last Filed: 09/18/17 14:27> Post Fall Progress Note - Post Fall Exam Vital Sign: Temp Pulse Resp BP Pulse Ox 99.4 F 65 18 148/77 99 09/16/17 18:28 09/16/17 18:48 09/16/17 18:28 09/16/17 18:48 09/16/17 16:00 Attending/Attestation - Attestation I have personally seen and examined this patient.: Yes I have fully participated in the care of the patient.: Yes I have reviewed all pertinent clinical information, including history, physical exam and plan: Yes
--- NOTE | 2017-09-10 15:38 | CP.PCM.PN ---
Subjective - Date & Time of Evaluation Date of Evaluation: 09/10/17 Time of Evaluation: 15:35 - Subjective Subjective: Surgery: Dr. Lo Pt seen and examined. No acute events. Objective - Vital Signs/Intake and Output Vital Signs (last 24 hours): Temp Pulse Resp BP Pulse Ox 97.2 F L 63 20 136/88 98 09/10/17 07:43 09/10/17 07:43 09/10/17 07:43 09/10/17 10:17 09/10/17 07:43 Intake and Output: 09/10/17 09/10/17 06:59 18:59 Intake Total 1947 840 Output Total 225 Balance 1722 840 - Medications Medications: Current Medications Acetaminophen (Tylenol 325mg Tab) 650 mg PO Q4 PRN PRN Reason: FOR TEMP>=99.5F Acetaminophen (Tylenol 650 Mg Supp) 650 mg RC Q4H PRN PRN Reason: FEVER>=99.5F Acetylcysteine (Acetylcysteine 20%) 4 ml IH [id number] [facility] Last Admin: 09/10/17 15:08 Dose: 4 ml Apixaban (Eliquis) 5 mg PO BID [facility] PRN Reason: Protocol Last Admin: 09/10/17 11:08 Dose: 5 mg Aspirin (Ecotrin) 81 mg PO DAILY [facility] Last Admin: 09/10/17 11:07 Dose: 81 mg Docusate Sodium (Colace) 200 mg PO QPM [facility] Last Admin: 09/09/17 17:34 Dose: Not Given Donepezil HCl (Aricept) 10 mg PO HS [facility] Last Admin: 09/09/17 22:09 Dose: 10 mg Ergocalciferol (Drisdol 50,000 Intl Units Cap) 1 cap PO MON [facility] Last Admin: 09/07/17 10:29 Dose: 1 cap Famotidine (Pepcid) 20 mg PO DAILY [facility] Last Admin: 09/10/17 10:17 Dose: 20 mg Folic Acid (Folic Acid) 1 mg PO DAILY [facility] Last Admin: 09/10/17 11:07 Dose: 1 mg Lactated Ringer's (Lactated Ringer's) 1,000 mls @ 150 mls/hr IV .Q6H40M [facility] Last Admin: 09/10/17 06:23 Dose: 150 mls/hr Ceftriaxone Sodium (Rocephin 2 Gm Ivpb) 2 gm in 100 mls @ 100 mls/hr IVPB DAILY [facility] PRN Reason: Protocol Stop: 10/08/17 10:01 Last Admin: 09/10/17 10:19 Dose: 100 mls/hr Insulin Human Lispro (Humalog Med) 0 units SC ACHS [facility] PRN Reason: Protocol Last Admin: 09/10/17 12:24 Dose: 3 units Lactic Acid (Lac-Hydrin 12% Lotion (225 G)) 0 gm EXT DAILY [facility] Last Admin: 09/10/17 11:05 Dose: 1 applic Levalbuterol HCl (Xopenex) 0.63 mg IH [id number] [facility] Last Admin: 09/10/17 15:08 Dose: 0.63 mg Metoprolol Tartrate (Lopressor) 50 mg PO BID [facility] Last Admin: 09/10/17 10:17 Dose: 50 mg Polyethylene Glycol (Miralax) 17 gm PO DAILY [facility] Last Admin: 09/10/17 10:18 Dose: 17 gm Polysaccharide Iron Complex (Ferrex-150) 150 mg PO DAILY [facility] Last Admin: 09/10/17 10:17 Dose: 150 mg Risperidone (Risperdal Tab) 1 mg PO DAILY [facility] PRN Reason: Protocol Last Admin: 09/10/17 10:19 Dose: 1 mg Tamsulosin HCl (Flomax) 0.4 mg PO DAILY [facility] Last Admin: 09/10/17 10:17 Dose: 0.4 mg - Labs Labs: 09/10/17 08:00 09/10/17 08:00 PT 18.6 SECONDS (9.4-12.5) H 09/10/17 08:00 INR 1.60 (0.93-1.08) H 09/10/17 08:00 APTT 31.3 Seconds (25.1-36.5) 09/10/17 08:00 - Constitutional Appears: Non-toxic, No Acute Distress - Head Exam Head Exam: ATRAUMATIC, NORMOCEPHALIC - Eye Exam Eye Exam: EOMI - ENT Exam ENT Exam: Mucous Membranes Moist - Neck Exam Neck Exam: Full ROM - Respiratory Exam Respiratory Exam: NORMAL BREATHING PATTERN. absent: Accessory Muscle Use, Respiratory Distress - GI/Abdominal Exam GI & Abdominal Exam: Soft. absent: Tenderness - Extremities Exam Extremities Exam: absent: Calf Tenderness, Pedal Edema - Neurological Exam Neurological Exam: Alert, Awake. absent: Oriented x3 - Skin Additional comments: L buttock decubiti Stage IV decubiti w. small opening ~0.5cm w. ~2cm of undermining, no odor, no necrotic tissue noted Assessment and Plan - Assessment and Plan (Free Text) Assessment: 76M w. sacral ducubiti -local wound care -Will irrigate daily w. saline via red rubber catheter -pack w. iodoform BID -d/w attending Reiitis PGY3
--- NOTE | 2017-09-10 16:07 | CT ---
PROCEDURE: CT HEAD WITHOUT CONTRAST. HISTORY: s/p fall, on eliquis COMPARISON: Unenhanced head CT 09/05/2017. TECHNIQUE: Axial computed tomography images were obtained through the head/brain without intravenous contrast. Radiation dose: Total exam DLP = 939.37 mGy-cm. This CT exam was performed using one or more of the following dose reduction techniques: Automated exposure control, adjustment of the mA and/or kV according to patient size, and/or use of iterative reconstruction technique. FINDINGS: HEMORRHAGE: No intracranial hemorrhage. BRAIN: Mild diffuse cerebral atrophy chronic microangiopathy are reiterated. No mass effect or interval suspicious extra-axial fluid collection. Midline brain anatomy is stable and unremarkable. No interval cortical edema appreciated diffusely. VENTRICLES: Unremarkable. No hydrocephalus. CALVARIUM: Unremarkable. PARANASAL SINUSES: Unremarkable as visualized. No significant inflammatory changes. MASTOID AIR CELLS: Mild left mastoid effusions identified. OTHER FINDINGS: None. IMPRESSION: No interval intracranial hemorrhage, mass effect or cortical edema. No calvarial fracture identified including the skullbase. Age-related neuro degenerative changes are reiterated. Incidental left mastoid effusions again evident.
--- NOTE | 2017-09-10 19:22 | PN ---
DATE: 09/10/2017 SUBJECTIVE: The patient is seen lying in bed. He appears to be comfortable. He is not really responsive. PHYSICAL EXAMINATION: GENERAL: Elderly male, lying in bed. VITAL SIGNS: Blood pressure 136/88, heart rate 63, respiratory rate 20, temperature 97.2. HEENT: Normocephalic, atraumatic. Neck: Supple, no JVD. LUNGS: Bilateral equal air entry, no rales. CARDIAC: S1, S2, regular rate and rhythm, no murmur, no rub. ABDOMEN: Obese, distended, soft, nontender, bowel sounds present. EXTREMITIES: Trace lower extremity edema. INTAKE AND OUTPUT: 2587/725. LABORATORY DATA: WBC 15, hemoglobin 9.4, hematocrit 28, platelets 296. Sodium 134, potassium 3.7, chloride 105, CO2 of 22, BUN 72, creatinine 2.8, glucose 200, calcium 8.2, albumin 2.1. Corrected calcium is 9.6. Wound culture, Proteus. Blood culture, E. coli. Urine culture, multiple species. CURRENT MEDICATIONS: Mucomyst, Aricept, Colace, vitamin D, Ecotrin, Eliquis 5 b.i.d., Ferrex, Flomax, folic acid, insulin, Ringer lactate at 150, Lopressor, MiraLax, Pepcid, Risperdal, Rocephin 2 g daily Tylenol, Xopenex. ASSESSMENT: 1. Acute kidney injury. 2. Gram-negative bacteremia. 3. Proteus wound infection. 4. Upper extremity deep venous thrombosis. 5. Dementia. 6. History of schizophrenia. 7. [id number] diabetes mellitus. 8. Hypertension. PLAN: 1. Continue IV fluids. 2. Continue antibiotics as per ID recommendations, dose for creatinine clearance 10-30 mL/minute. 3. Avoid nephrotoxins. 4. Monitor urine output. 5. Monitor electrolytes. Brunilda Argueta MD
--- NOTE | 2017-09-10 21:02 | CP.PCM.PN ---
Subjective - Date & Time of Evaluation Date of Evaluation: 09/10/17 Time of Evaluation: 12:00 - Subjective Subjective: Appears comfortable, no complaints. Objective - Vital Signs/Intake and Output Vital Signs (last 24 hours): Temp Pulse Resp BP Pulse Ox 97.2 F L 63 20 136/70 98 09/10/17 07:43 09/10/17 07:43 09/10/17 07:43 09/10/17 19:01 09/10/17 07:43 Intake and Output: 09/10/17 09/11/17 18:59 06:59 Intake Total 840 360 Output Total 75 Balance 840 285 - Medications Medications: Current Medications Acetaminophen (Tylenol 325mg Tab) 650 mg PO Q4 PRN PRN Reason: FOR TEMP>=99.5F Acetaminophen (Tylenol 650 Mg Supp) 650 mg RC Q4H PRN PRN Reason: FEVER>=99.5F Acetylcysteine (Acetylcysteine 20%) 4 ml IH [id number] [facility] Last Admin: 09/10/17 20:31 Dose: 4 ml Apixaban (Eliquis) 5 mg PO BID [facility] PRN Reason: Protocol Last Admin: 09/10/17 19:00 Dose: 5 mg Aspirin (Ecotrin) 81 mg PO DAILY [facility] Last Admin: 09/10/17 11:07 Dose: 81 mg Docusate Sodium (Colace) 200 mg PO QPM [facility] Last Admin: 09/10/17 18:41 Dose: Not Given Donepezil HCl (Aricept) 10 mg PO HS [facility] Last Admin: 09/09/17 22:09 Dose: 10 mg Ergocalciferol (Drisdol 50,000 Intl Units Cap) 1 cap PO MON [facility] Last Admin: 09/07/17 10:29 Dose: 1 cap Famotidine (Pepcid) 20 mg PO DAILY [facility] Last Admin: 09/10/17 10:17 Dose: 20 mg Folic Acid (Folic Acid) 1 mg PO DAILY [facility] Last Admin: 09/10/17 11:07 Dose: 1 mg Lactated Ringer's (Lactated Ringer's) 1,000 mls @ 150 mls/hr IV .Q6H40M [facility] Last Admin: 09/10/17 19:07 Dose: 150 mls/hr Ceftriaxone Sodium (Rocephin 2 Gm Ivpb) 2 gm in 100 mls @ 100 mls/hr IVPB DAILY [facility] PRN Reason: Protocol Stop: 10/08/17 10:01 Last Admin: 09/10/17 10:19 Dose: 100 mls/hr Insulin Human Lispro (Humalog Med) 0 units SC ACHS [facility] PRN Reason: Protocol Last Admin: 09/10/17 16:30 Dose: Not Given Lactic Acid (Lac-Hydrin 12% Lotion (225 G)) 0 gm EXT DAILY [facility] Last Admin: 09/10/17 11:05 Dose: 1 applic Levalbuterol HCl (Xopenex) 0.63 mg IH [id number] [facility] Last Admin: 09/10/17 20:31 Dose: 0.63 mg Metoprolol Tartrate (Lopressor) 50 mg PO BID [facility] Last Admin: 09/10/17 19:01 Dose: 50 mg Polyethylene Glycol (Miralax) 17 gm PO DAILY [facility] Last Admin: 09/10/17 10:18 Dose: 17 gm Polysaccharide Iron Complex (Ferrex-150) 150 mg PO DAILY [facility] Last Admin: 09/10/17 10:17 Dose: 150 mg Risperidone (Risperdal Tab) 1 mg PO DAILY [facility] PRN Reason: Protocol Last Admin: 09/10/17 10:19 Dose: 1 mg Tamsulosin HCl (Flomax) 0.4 mg PO DAILY [facility] Last Admin: 09/10/17 10:17 Dose: 0.4 mg - Labs Labs: 09/10/17 08:00 09/10/17 08:00 PT 18.6 SECONDS (9.4-12.5) H 09/10/17 08:00 INR 1.60 (0.93-1.08) H 09/10/17 08:00 APTT 31.3 Seconds (25.1-36.5) 09/10/17 08:00 - Head Exam Head Exam: ATRAUMATIC - Eye Exam Eye Exam: Normal appearance - ENT Exam ENT Exam: Mucous Membranes Dry - Respiratory Exam Respiratory Exam: NORMAL BREATHING PATTERN - Cardiovascular Exam Cardiovascular Exam: +S1, +S2 - GI/Abdominal Exam GI & Abdominal Exam: Normal Bowel Sounds Assessment and Plan (1) Deep vein thrombosis Assessment & Plan: on Eliquis ? provoked from immobility ? prior IV access minimum duration of anticoagulation 3 months Status: Acute (2) Coagulopathy Assessment & Plan: anticoagulation Status: Acute (3) Anemia Assessment & Plan: chronic disease Procrit supplementation PRN to decrease transfusion dependence Status: Acute (4) Leukocytosis Assessment & Plan: on antibiotics Status: Acute
--- NOTE | 2017-09-11 01:47 | PN ---
DATE: 09/10/2017 SUBJECTIVE: The patient was seen in room 574, bed 2. The patient is lying in the bed. Overnight nurse's notes were reviewed. The patient's heparin drip was discontinued yesterday. The patient was found to be alert, awake, oriented x1, confused, disoriented. The patient is lying in the bed with upper and lower extremity contractures. PHYSICAL EXAMINATION: VITAL SIGNS: T-max in the last 24 hours 98.4. Heart rate 77, 78, 74, 63; blood pressure in the last 24 hours 138/67, 104/52, 133/80, 115/63, 136/88; respiration 18-19; O2 sat 95-98%. The patient is seen between the hours of 10:00 a.m. and 11:00 a.m. this morning. The patient was seen lying in the bed. The patient is alert, awake, responsive, oriented x1, confused, disoriented. Vital signs: T-max 98.4; pulse 63; blood pressure 136/70, 136/68, 115/63, 133/80; respirations 20; O2 sat 98%. HEENT: Head examination normocephalic, atraumatic. HEENT examination shows pinkish pale conjunctivae. Positive bilateral blindness. No oropharyngeal lesion. NECK: Short and supple. No jugular venous distention noted. CHEST: Kyphosis. LUNGS: Examination shows occasional rhonchi, anterior lung field. CARDIOVASCULAR: S1, S2. Regular rhythm. Positive systolic murmur, left sternal border, right second intercostal space, left second intercostal space. EXTREMITIES: Upper extremity shows positive swelling of the upper extremity, right more than the left. Positive flexion contractures. Lower extremity shows positive flexion contracture. Positive right hip dislocation noted. Gait examination, bedridden. ABDOMEN: Protuberant. Positive bowel sounds from abdomen. GENITALIA: Male. Positive Mckeon catheter. Sacrum area shows at least stage III sacral decubitus ulceration. MUSCULOSKELETAL: Shows a body mass index of 27. DIAGNOSTICS: On 09/10/2017, WBC 15.4, hemoglobin and hematocrit 9.4 and 28.2, platelet 296. PT, PTT 18.6, 31.3. Sodium 134, potassium 3.7, chloride 105, CO2 of 22, anion gap 11, BUN 72, creatinine 2.8, GFR 27. Glucose 185, 211, 200, 194, 162, 224. Calcium 8.2, total protein 5.4, albumin 2.1. Hepatitis A, B, C serologies, influenza and HIV negative. Sacral decubitus ulceration, Proteus mirabilis. Blood cultures, E-coli. Repeat blood cultures on 09/06/2017, no growth. The patient received 2 units of PRBC. The patient underwent PICC line placement. IMPRESSION AND PLAN: 1. Escherichia coli bacteremia and sepsis. 2. Proteus mirabilis sacral decubitus ulceration and abscess. 3. Multiple species urinary tract infection. 4. Sepsis. 5. High-grade fever of 103 degrees Fahrenheit. 6. Tachycardia. 7. Hypertension and hypotension. 8. Bilateral blindness secondary to diabetic retinopathy. 9. Leukocytosis with granulocytosis. 10. Elevated erythrocyte sedimentation rate of greater than 130. 11. Normocytic anemia. 12. Acute renal failure and acute kidney injury, etiology unclear. 13. Insulin-requiring diabetes mellitus with hemoglobin A1c of 6.7 and hyperglycemia. 14. Elevated prostate-specific antigen of 15.0. 15. Voiding dysfunction with urinary retention and indwelling Mckeon catheter. 16. Proteinuria, ketonuria, hematuria, pyuria, bacteriuria and mixed species urinary tract infection. 17. Status post packed red blood cell transfusion x2. 18. Provoked bilateral upper extremity deep venous thrombosis secondary to immobility. 19. Anemia of chronic kidney disease. 20. Sacral left gluteal stage III/IV decubitus ulceration and abscess. 21. Urinary retention. 22. Acute kidney injury. 23. Escherichia coli gram-negative bacteremia and sepsis. 24. Severe gait dysfunction and bedridden status and functional quadriplegia. 25. Upper and lower extremity flexion contractures. 26. Dementia. 27. Constipation. 28. Hypovitaminosis D. 1. Sacral decubitus ulceration and abscess secondary to Proteus mirabilis and Proteus mirabilis sacral decubitus ulceration and abscess. 2. Mixed species urinary tract infection. 3 High-grade fever. 4. Tachycardia. 5. Hypotension and hypertension. 6. Bilateral blindness. 7. Flexion contractures of upper and lower extremity. 8. Leukocytosis with granulocytosis and bandemia. 9. Normocytic anemia. 10. Elevated erythrocyte sedimentation rate of greater than 130. 11. Mild coagulopathy. 12. Acute renal failure, acute kidney injury with chronic kidney disease, stage IV. 13. Protein malnutrition. 14. Hypoalbuminemia. 15. Elevated prostate-specific antigen of 15. 16. Hyperbilirubinemia. 17. Well-controlled insulin-requiring diabetes mellitus with hemoglobin A1c of 6.7. 18. Hyperuricemia. 19. Iron deficiency. 20. Proteinuria, ketonuria, hematuria, bacteriuria, pyuria, and multiple species urinary tract infection. 21. Status post packed red blood cells transfusion x2. 22. Pelvic free fluid and stranding of the intrapelvic fat. 23. Scrotal swelling. 24. Prostatomegaly. 25. Bone marrow edema of the anterior inferior iliac spine on the right side, questionable reactive versus post-traumatic. 26. Pelvic bone marrow nonspecific heterogeneous signal intensity, suggestive of nonspecific increase in the cellular content in the marrow or red marrow reconversion. 27. Postoperative right hip changes. 28. Sacral decubitus ulceration with adjacent soft tissue swelling. 29. Pelvic and proximal thigh diffuse edema consistent with anasarca. 30. Questionable muscle strain of myositis with diffuse muscle edema. 31. Sacral decubitus ulceration with adjacent soft tissue swelling and left posterior paraspinal musculature and lumbosacral junction abscess and phlegmonous changes of the left lateral thigh. 32. Anasarca with diffuse edematous changes of the subcutaneous tissue of the pelvis and proximal thighs. 33. Left renal cyst. 34. Left adrenal nodular thickening. 35. Degenerative joint disease of the lower thoracic spine. 36. Lumbar spine degenerative disk disease, neural foraminal narrowing, foraminal stenosis, bilateral facet arthropathy. 37. Right bundle-branch block, left anterior hemiblock, bifascicular block. 38. Underlying chronic kidney disease, stage II/III. 39. Acute tubular necrosis. 40. Left upper extremity subclavian deep venous thrombosis and right upper extremity basilic vein deep venous thrombosis. 41. Escherichia coli bacteremia with severe sepsis. 42. Severe gait dysfunction and bedridden status and functional quadriplegia. 1. Severe sepsis secondary to Escherichia coli bacteremia and sepsis, probably secondary to urinary tract infection. 2. Possible sacral osteomyelitis with sacral decubitus ulceration, stage II/III. 3. Hypertension. 4. Visual impairment. 5. Dementia and delirium. 6. High-grade fever of 103 degrees Fahrenheit. 7. Leukocytosis with granulocytosis and bandemia. 8. Elevated erythrocyte sedimentation rate of greater than 130. 9. Normocytic anemia. 10. Status post packed red blood cell transfusion. 11. Coagulopathy. 12. Acute renal failure, acute kidney injury, etiology undetermined. 13. Insulin-requiring well-controlled diabetes mellitus with hemoglobin A1c of 6.7. 14. Iron deficiency. 15. Transaminitis. 16. Hypoalbuminemia. 17. Elevated prostate-specific antigen of greater than 15. 18. Hyperprocalcitoninemia. 19. Hyperglycemia. 20. Severe deconditioning, gait dysfunction, and possible functional quadriplegia. 21. Acute on chronic right hip dislocation. 22. Proteinuria, hematuria, pyuria, bacteriuria 23. Escherichia coli bacteremia and sepsis. 24. Multi species urinary tract infection. 25. Status post 2 units of PRBC transfusion. 26. Abnormal EEG with bihemispheric cerebral dysfunction. 27. Questionable provoked left subclavian deep venous thrombosis secondary to mobility versus IV access verses occult malignancy. 28. Coagulopathy. 29. Anemia. 30. Increased uptake of the right hip consistent with right total hip bipolar component dislocation. 31. Increased uptake left femur. 32. Degenerative joint changes of the right sternoclavicular joint. 33. Acute hypoechoic adherent partially occlusive left subclavian vein thrombosis. 34. Adherent nonocclusive thrombus in the right basilic vein. 35. Anasarca. 36. Diffuse soft tissue stranding and thickening within the subcutaneous tissue along sacrum/coccyx with air cluster and fluid within the adjacent left lower paravertebral musculature with air overlying subcutaneous tissue with foci of air within the spinal canal of the lower lumbar spine and sacrum. 37. History of right hip surgery and arthroplasty. 38. Right hip joint dislocation. 39. Right hip joint moderate heterotrophic ossification and minimal heterotropic ossification of the left hip. 40. Hip joint effusion. 41. Degenerative joint disease of the spine. 42. Diverticulosis of the colon. 43. Rectal wall thickening. 44. Sacral decubitus ulceration with sacral coccygeal osteomyelitis with probable adjacent soft tissue infection along left paravertebral musculature with possible extension into the spine. 45. Moderate anasarca 46. Malposition Mckeon catheter. 47. Urinary retention. 48. Elevated prostate-specific antigen. 49. Voiding dysfunction. 50 Mucus plugging with atelectasis, scarring and pulmonary parenchyma with mosaic pattern with intralobular septal thickening. 51. Small bilateral pleural effusion. 52. Coronary artery calcification. 53. Degenerative joint disease of the spine. 54. Minimal left gynecomastia. 55. Elevated left hemidiaphragm. 56. Hepatic cystic *------* bilateral perinephric stranding and bilateral renal cyst. 57. Colonic diverticulosis. 58. Prostatomegaly. 59. 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 60. Bilateral cerebral hemispheric dysfunction. 61. Severe sepsis. 62. Dementia. 63. Toxic metabolic encephalopathy and altered mental status. 1. Gram-negative tejal bacteremia and sepsis. 2. Questionable urinary tract infection secondary to multiple urinary tract species. 3. Hypertension. 4. Severe gait dysfunction and deconditioning and bedridden status and possible functional quadriplegia. 5. Leukocytosis with granulocytosis and bandemia. 6. Normocytic anemia. 7. Elevated erythrocyte sedimentation rate of 136. 8. Elevated reticulocyte count of 1.69. 9. Visual impairment. 10. Mild coagulopathy. 11. Acute kidney injury and acute renal failure. 12. Well-controlled insulin-requiring diabetes mellitus with hemoglobin A1c of 6.7. 13. Iron-deficiency anemia. 14. Transaminitis. 15. Hypoalbuminemia. 16. Hyperuricemia. 17. Hyperbilirubinemia. 18. Hyperprocalcitoninemia. 19. Proteinuria, ketonuria, microscopic hematuria, pyuria, bacteriuria. 20. B negative blood type. 21. Status post 2 units of packed red blood cells. 22. 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 23. Degenerative joint disease and increased uptake on the right hip consistent with dislocated right total hip. 24. Increased uptake of the left femur and degenerative joint disease of the right sternoclavicular joint. 25. Left subclavian vein deep venous thrombosis. 26. Left subclavian vein acute hypoechoic adherent partially occlusive thrombosis, provoked from immobility and possible IV access. 27. Right basilic vein adherent nonocclusive thrombosis. 28. Upper and lower extremity flexion contractures. 29. Cerebral cortical atrophy of the brain. 30. Bedridden status and functional quadriplegia. 31. Intracranial atherosclerotic disease. 32. Left mastoid partial opacification with mild mucosal sinus thickening of the sinuses. 33. Status post packed red blood cell transfusion x2. 34. Hypovitaminosis D. 35. Prostatic hypertrophy. 36. Urinary retention. 37. Elevated prostate-specific antigen of 15, questionable occult malignancy. 38. Anemia of chronic disease. 39. Sacral decubitus ulceration, stage 2. 40. Unspecified dementia. 41. Mild oropharyngeal dysphagia. 42. Mild oral dysphagia. 43. Altered mental status. 44. Flexion contractures of upper and lower extremity. 45. Toxic metabolic encephalopathy. 46. High grade fever. 47. Severe sepsis. 48. Questionable sacral coccygeal osteomyelitis with extension into the soft tissue and left paravertebral musculature with possible extension into the spine. 49. Constipation. 50. Prostatic hypertrophy with urinary retention. 1. High-grade fever. 2. Gram-negative tejal bacteremia and sepsis. 3. Stage II to III sacral decubitus ulceration. 4. Hypotension. 5. Leukocytosis with granulocytosis and bandemia. 6. Elevated erythrocyte sedimentation rate of 136. 7. Mild coagulopathy. 8. Acute kidney injury. 9. Insulin-requiring diabetes mellitus with hemoglobin A1c of 6.7. 10. Iron-deficiency anemia. 11. Transaminitis. 12. Hypoalbuminemia. 13. Severe gait dysfunction and bedridden status. 14. Sacral decubitus ulceration. 15. Hyperuricemia. 16. Hyperbilirubinemia. 17. Hyperprocalcitoninemia. 18. Proteinuria, microscopic hematuria, pyuria, bacteriuria. 19. Right femur dislocation from [place] acetabulum. 20. 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 21. Bilateral hip joint effusion and heterotrophic ossification of the right hip joint and left hip joint. 22. Degenerative joint disease of the spine. 23. Posterior sacral coccyx erosion. 24. Colonic diverticulosis. 25. 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 26. [id number] anasarca. 27. Urinary retention. 28. Mucus plugging and bilateral atelectasis. 29. Interlobular septal thickening. 30. Coronary artery calcification. 31. Degenerative joint disease of spine. 32. Mild left gynecomastia. 33. Elevated left hemidiaphragm. 34. Questionable interstitial edema and anasarca. 35. Bilateral renal cyst. 36. Colonic diverticulosis. 37. Prostatomegaly. 38. Right hip arthroplasty with dislocation of the right hip joint and moderate heterotrophic ossification about the right hip joint. 39. Anasarca. 40. Bilateral perinephric stranding and bilateral renal cyst. 41. Cerebral cortical atrophy of the brain. 42. Periventricular subcortical white matter disease of the brain. 43. Atherosclerotic intracranial arterial disease. 44. Left mastoid partial opacification. 45. Gait dysfunction. 46. Severe deconditioning. 47. Insulin-requiring diabetes mellitus. 48. Anemia, etiology undetermined. 49. Iron-deficiency anemia, etiology undetermined. 50. Incomplete right bundle branch block, left anterior hemiblock, bifascicular block. 51. Mild oral dysphagia. 1. High-grade fever of greater than 103 degrees Fahrenheit. 2. Tachycardia. 3. Hypertension and hypotension. 4. Questionable and probable sepsis. 5. Leukocytosis with granulocytosis and bandemia. 6. Normocytic anemia with decreasing hemoglobin and hematocrit. 7. Mild coagulopathy. 8. Acute renal failure, acute kidney injury. 9. Hypoglycemia. 10. Hyperuricemia. 11. Iron-deficiency normocytic anemia. 12. Transaminitis. 13. Protein malnutrition and hypoalbuminemia. 14. Sepsis with urinary tract infection with proteinuria, ketonuria, microscopic hematuria, pyuria, bacteriuria. 15. History of right hip subcapital fracture open reduction and right hip hemiarthroplasty. History of right femoral neck right hip subcapital fracture, status post surgery. 16. Dementia. 17. Psychosis. 18. Visual impairment. 19. Normocytic anemia. 20. Severe gait dysfunction. 21. Severe deconditioning. 22. History of bifascicular block, right bundle-branch block, left anterior hemiblock. 23. Cerebral cortical atrophy of the brain with periventricular subcortical white matter ischemic disease of the brain. 24. Atherosclerotic intracranial arterial disease. 25. Altered mental status and toxic metabolic encephalopathy, probably secondary to sepsis secondary to urinary tract infection with high-grade fever. 26. Dehydration and hypotension. 27. Toxic metabolic encephalopathy. 28. Anemia with decreasing hemoglobin and hematocrit. PLAN: At this time, the patient has been requested to have a PICC line placement by Dr. Cardona for long-term IV antibiotic as recommended by Infectious Disease. The patient has been ordered serial labs. CURRENT CONSULTATION: 1. Infectious Disease. 2. Psychiatry. 3. Neurology. 4. Surgery. 5. Nephrology. 6. Orthopedics. 7. Urology. 8. Podiatry. 9. Hematology. CURRENT MEDICATIONS: 1. Mucomyst nebulizer 20% 4 mL q. 6 hours. 2. Aricept 10 mg at bedtime. 3. Colace 200 mg daily. 4. Drisdol 50,000 weekly. 5. Ecotrin 81 mg daily. 6. Eliquis 5 mg twice a day. 7. Ferrex 150 mg p.o. daily. 8. Flomax 0.4 mg daily. 9. Folic acid 1 mg daily. 10. Humalog medium-dose sliding scale coverage before meals and at bedtime. 11. Lac-Hydrin lotion. 12. Ringer's lactate 150 mL an hour. 13. Lopressor 50 mg twice a day. 14. MiraLax 17 g daily. 15. Pepcid 20 mg daily. 16. Risperdal 1 mg daily. 17. Rocephin 2 g IV daily. 18. Tylenol 650 p.o. suppository q. 4 p.r.n. 19. Xopenex 0.63 mg every 6 hours. The patient has been ordered chest PT, dysphagia modified consistency diet. Out of bed. The patient's prognosis is guarded to poor. Explained to the patient's daughter, Yue Tadeo on multiple occasions, which she acknowledged and understand. Dictated and electronically signed, not read. Eliezer Hanna MD MTDD
[2017-09-11] MEDS: Acetylcysteine 20% Inhal Soln (4ml) IH SCH ×4 (02:39→20:00)
[2017-09-11] MEDS: Levalbuterol 0.63 MG/3 ML Inhal Soln UD IH SCH ×4 (02:39→20:00)
--- NOTE | 2017-09-11 03:52 | PN ---
DATE: LOCATION: The patient is seen early this morning in room 574, bed 2. SUBJECTIVE: The patient is in bed, in no acute distress, nontoxic. PHYSICAL EXAMINATION: VITAL SIGNS: Temperature is 98, blood pressure is 112/70, respiratory rate of 16. HEENT: Unremarkable. NECK: Supple. LUNGS: Have decreased breath sounds. HEART: Normal S1 and S2. ABDOMEN: Soft, nontender. LABORATORY DATA: Reveals a white count of 15,400, hemoglobin of 9. BUN of 28, creatinine of 2.8. Urinalysis is noted, and serology is noted. Microbiology reveals cultures were E. coli in the blood; sacral cultures, Proteus. Review of the orders reveals the patient is on ceftriaxone. ASSESSMENT AND PLAN: A 76-year-old male who was seen early today with patient admitted with severe sepsis, Escherichia coli bacteremia secondary to Proteus mirabilis from the sacrum with osteomyelitis, pansensitive, with currently on ceftriaxone 2 g daily x20 days because of the osteomyelitis. I would recommend CBC, SMA-18, sed rate, C-reactive protein once weekly. Jose Jennings MD
[2017-09-11 08:05] LABS: MEAN CELL VOLUME 88.6 fl (80.0-105.0); MEAN CORPUSCULAR HEMOGLOBIN 29.4 pg (25.0-35.0); MEAN CORPUSCULAR HGB CONC 33.2 g/dl (31.0-37.0); MEAN PLATELET VOLUME 9.1 fl (7.0-11.0); RBC 3.06 10^6/uL (3.5-6.1); RED CELL DISTRIBUTION WIDTH 15.4 % (11.5-14.5); WHITE BLOOD COUNT 12.4 10^3/ul (4.5-11.0)
--- NOTE | 2017-09-11 08:08 | RAD ---
HISTORY: s/p fall COMPARISON: Chest CT 05/16/2017. FINDINGS: BONES: Normal thoracic curvature is appreciated with out acute interval fracture or spondylolisthesis appreciated this time. Overall pattern of the vertebral bodies is stable in the interval. No definite destructive bony lesion appreciable grossly. DISC SPACES: Extensive multifocal spondylosis including syndesmophytes is appreciated predominately anteriorly, raising question of potential ankylosing spondylitis. SOFT TISSUES: Normal. OTHER FINDINGS: None. IMPRESSION: Advanced degenerative disc disease appreciated with potential for possible ankylosing spinal colitis given extensive syndesmophytes throughout the thoracic spine. No definite acute fracture or spondylolisthesis appreciated.
--- NOTE | 2017-09-11 08:19 | RAD ---
PROCEDURE: Radiographs of the pelvis and bilateral hips HISTORY: s/p fall COMPARISON: Portable Right hip with pelvis 06/26/2017 and single-view right hip 09/05/2017. FINDINGS: BONES: The study is somewhat compromised by a inability of the patient adequately position. Apparent fixation device from the right hip is been removed with recurrent or chronic dislocation of the right femur from the right hip joint once again. Heterotopic bone is seen distributed superolateral to the acetabulum as well as at the proximal right femur in this patient is status post right hip arthroplasty. Lucency appears to be developing lateral to the proximal segment of the right femoral prosthetic stem and potential for osteomyelitis is not excluded, loosening or both. No definitive fractures appreciated as images and there is no left hip dislocation or subluxation evident. degenerative changes are reiterated at the left hip and bilateral sacroiliac joints. The pubic symphysis is intact. No definite fracture of the pelvic ring grossly. Vascular calcifications are identified in the bilateral inguinal and proximal medial thigh soft tissues bilaterally. JOINTS: As above. SOFT TISSUES: As above OTHER FINDINGS: None. IMPRESSION: Recurrent or chronic dislocation of the right hip joint with arthroplasty device again identified. Prominent heterotopic bone is seen superolateral to the acetabulum as well as the proximal right femur with lucency lateral to the proximal stem of the femoral prosthesis raising question of potential loosening or osteomyelitis or combination of both. Further clinical correlation is advised. No definitive acute fracture throughout the examination. Reiteration of degenerative changes left hip and bilateral sacroiliac joints.
--- NOTE | 2017-09-11 08:21 | RAD ---
PROCEDURE: Radiographs of the Lumbar Spine. HISTORY: s/p fall COMPARISON: No prior. FINDINGS: BONES: Normal alignment. No listhesis. No fracture. DISC SPACES: Advanced multilevel spondylosis appreciated with limited sparing at L4-5. Incidental views of the inferior thoracic spine also indicate relatively advanced degenerative disease. No destructive bony lesion appreciable. Multilevel facet joint degenerative arthropathy also apparent. OTHER FINDINGS: Incidental note is made of dislocation of right hip and right hip arthroplasty. IMPRESSION: No definitive acute fracture or spondylolisthesis appreciable. Advanced multilevel spondylosis and facet arthropathy identified. Incidental note made of right hip dislocation and arthroplasty.
--- NOTE | 2017-09-11 08:24 | RAD ---
PROCEDURE: Cervical Spine Radiographs. HISTORY: Pain. COMPARISON: None. FINDINGS: BONES: There is limited visualization of the cervical spine on lateral view due to the lack of ability of the patient to perform swimmer's view position. The shoulders obscure much of the mid inferior cervical spine. No gross spondylolisthesis appreciable or prominent fracture however CT should be considered if there is clinical concern for potential fracture. DISC SPACES: Multilevel spondylosis identified. SOFT TISSUES: Normal. No prevertebral soft tissue swelling. OTHER FINDINGS: None. IMPRESSION: Extremely limited cervical spine series due to limited ability of the patient in position. Well no prominent subluxation is appreciable, follow-up CT of the cervical spine should be considered if there is clinical concern for possible fracture or spondylolisthesis. Multilevel spondylosis apparent.
[2017-09-11] MEDS: Lactated Ringer's 1,000 ML IV SCH (08:26)
--- NOTE | 2017-09-11 08:26 | RAD ---
PROCEDURE: Radiographs of the Sacrum and Coccyx HISTORY: s/p fall COMPARISON: None available. TECHNIQUE: Frontal and lateral views of the sacrum and coccyx FINDINGS: BONES: No definitive fracture of the sacrum and coccyx is appreciable. Diffuse osteopenia suggests osteoporosis. degenerative changes seen the bilateral sacroiliac joints as well as incidentally at the left hip joint. Right hip is status post prior an arthroplasty with dislocation of the femur laterally. SACROILIAC JOINTS: As above. OTHER FINDINGS: None. IMPRESSION: Diffuse osteopenia suggests osteoporosis. No definitive displaced fracture appreciable throughout the sacrum or coccyx. Degenerative changes seen at the bilateral sacroiliac and left hip joints. Right hip arthroplasty identified with dislocation as discussed above. Please see separate bilateral hips with pelvis radiograph series.
[2017-09-11 08:35] LABS: ALB/GLOB RATIO 0.6 (1.1-1.8); ALBUMIN 1.9 g/dL (3.0-4.8); BILIRUBIN,DIRECT 0.4 mg/dL (0.0-0.4); CALCIUM 8.1 mg/dL (8.4-10.5); MAGNESIUM 2.1 mg/dL (1.7-2.2)
[2017-09-11] MEDS: Insulin Lispro (humaLOG) MEDIUM Coverage SC SCH ×3 (09:05→23:52)
[2017-09-11] MEDS: Iron Complex Polysacch 150mg Cap PO SCH (09:07)
[2017-09-11] MEDS: POLYETHYLENE GLYCOL 3350 17 GM/Dose PACKET PO SCH (09:08)
[2017-09-11] MEDS: Ammonium Lactate 12% Lotion (225 g) EXT SCH (09:08)
[2017-09-11] MEDS: cefTRIAXone 2 GM IN NS 2 GM/100 ML BAG IVPB SCH (09:11)
--- NOTE | 2017-09-11 09:32 | RAD ---
PROCEDURE: Bilateral Ankle Radiographs. HISTORY: s/p fall COMPARISON: None FINDINGS: BONES: There is linear sclerosis in the posterior inferior right calcaneus with an apparent exists in lucency. There is no acute fracture in the left calcaneus. There is no bone destruction. There is diffuse bone demineralization. Bone alignment normal. There are dorsal calcaneal osteophytes. JOINTS: Right Ankle: Normal. No osteoarthritis. Ankle mortise maintained. Talar dome intact. Left Ankle: Normal. No osteoarthritis. Ankle mortise maintained. Talar dome intact. SOFT TISSUES: There is soft tissue swelling in the right hip. The left hip and soft tissues are OTHER FINDINGS: Atherosclerotic vascular calcifications are present. IMPRESSION: Question of nondisplaced fracture in the right calcaneus and overlying soft tissue swelling. If clinically indicated, further imaging with CT scan or MRI may be performed for definitive evaluation.
--- NOTE | 2017-09-11 09:38 | RAD ---
PROCEDURE: Bilateral Knee Radiographs. HISTORY: s/p fall COMPARISON: None. FINDINGS: BONES: Limited examination due to patient positioning. Allowing for no acute displaced fracture or bone destruction. Bone alignment is normal. There is periarticular bone demineralization. There is a prominent left dorsal patellar enthesophyte. JOINTS: Right Knee: Normal. No osteoarthritis. Left knee: Normal. No osteoarthritis. SOFT TISSUES: Right Knee: Normal. Left Knee: Normal. JOINT EFFUSION: There are small suprapatellar joint effusions OTHER FINDINGS: None. IMPRESSION: Limited examination, no acute displaced fracture or dislocation. Please note occult fractures cannot be excluded on plain radiographs, there is a persistent clinical concern, the CT scan or MRI may be performed for further evaluation.
--- NOTE | 2017-09-11 09:39 | RAD ---
PROCEDURE: Bilateral Elbow Radiographs HISTORY: s/p fall COMPARISON: None available. TECHNIQUE: Two views of each elbow and submitted for interpretation. FINDINGS: No definitive acute fracture or dislocation is identified. Heterotopic calcification is appreciated slightly cephalad to the olecranon process regions bilaterally. A small enthesophyte is seen related to the right olecranon process with soft tissue calcification potentially related to this. No definite bony erosion is appreciated. Extensive soft tissue edema is appreciated at the dorsal forearm soft tissues diffusely, bilaterally, without definite emphysematous soft tissue change or retained radiodense foreign body related. Edema extends to overlie the of the left olecranon process but not at the right. IMPRESSION: Extensive soft tissue edema at the dorsal forearms diffusely with extension to the left elbow soft tissues overlying the olecranon process but not at the right. No acute fracture or dislocation bilaterally.
--- NOTE | 2017-09-11 09:40 | RAD ---
PROCEDURE: Radiographs of both shoulders HISTORY: s/p fall COMPARISON: No prior. FINDINGS: BONES: There is no acute displaced fracture or bone destruction. Bone alignment is normal. There is diffuse bone demineralization. JOINTS: There is mild degenerative osteoarthrosis in the glenohumeral joints. The acromioclavicular joints are. SOFT TISSUES: Right shoulder: Grossly unremarkable. Right shoulder: Grossly unremarkable. OTHER FINDINGS: None. IMPRESSION: No acute displaced fracture or dislocation.
--- NOTE | 2017-09-11 09:41 | CP.PCM.PN ---
Subjective - Date & Time of Evaluation Date of Evaluation: 09/11/17 Time of Evaluation: 09:35 - Subjective Subjective: General surgery progress note Patient seen and examined at bedside. Patient had a code star last night Objective - Vital Signs/Intake and Output Vital Signs (last 24 hours): Temp Pulse Resp BP Pulse Ox 97.4 F L 80 20 118/74 100 09/11/17 08:33 09/11/17 08:33 09/11/17 08:33 09/11/17 09:07 09/11/17 08:33 Intake and Output: 09/11/17 09/11/17 06:59 18:59 Intake Total 460 Output Total 375 Balance 85 - Medications Medications: Current Medications Acetaminophen (Tylenol 325mg Tab) 650 mg PO Q4 PRN PRN Reason: FOR TEMP>=99.5F Acetaminophen (Tylenol 650 Mg Supp) 650 mg RC Q4H PRN PRN Reason: FEVER>=99.5F Acetylcysteine (Acetylcysteine 20%) 4 ml IH [id number] [facility] Last Admin: 09/11/17 07:53 Dose: 4 ml Apixaban (Eliquis) 5 mg PO BID [facility] PRN Reason: Protocol Last Admin: 09/11/17 09:06 Dose: 5 mg Aspirin (Ecotrin) 81 mg PO DAILY [facility] Last Admin: 09/11/17 09:06 Dose: 81 mg Docusate Sodium (Colace) 200 mg PO QPM [facility] Last Admin: 09/10/17 18:41 Dose: Not Given Donepezil HCl (Aricept) 10 mg PO HS [facility] Last Admin: 09/10/17 22:52 Dose: 10 mg Ergocalciferol (Drisdol 50,000 Intl Units Cap) 1 cap PO MON [facility] Last Admin: 09/07/17 10:29 Dose: 1 cap Famotidine (Pepcid) 20 mg PO DAILY [facility] Last Admin: 09/11/17 09:07 Dose: 20 mg Folic Acid (Folic Acid) 1 mg PO DAILY [facility] Last Admin: 09/11/17 09:06 Dose: 1 mg Lactated Ringer's (Lactated Ringer's) 1,000 mls @ 150 mls/hr IV .Q6H40M [facility] Last Admin: 09/11/17 08:26 Dose: 150 mls/hr Ceftriaxone Sodium (Rocephin 2 Gm Ivpb) 2 gm in 100 mls @ 100 mls/hr IVPB DAILY [facility] PRN Reason: Protocol Stop: 10/08/17 10:01 Last Admin: 09/11/17 09:11 Dose: 100 mls/hr Insulin Human Lispro (Humalog Med) 0 units SC ACHS [facility] PRN Reason: Protocol Last Admin: 09/11/17 09:05 Dose: 3 units Lactic Acid (Lac-Hydrin 12% Lotion (225 G)) 0 gm EXT DAILY [facility] Last Admin: 09/11/17 09:08 Dose: 1 applic Levalbuterol HCl (Xopenex) 0.63 mg IH [id number] [facility] Last Admin: 09/11/17 07:53 Dose: 0.63 mg Metoprolol Tartrate (Lopressor) 50 mg PO BID [facility] Last Admin: 09/11/17 09:07 Dose: 50 mg Polyethylene Glycol (Miralax) 17 gm PO DAILY [facility] Last Admin: 09/11/17 09:08 Dose: 17 gm Polysaccharide Iron Complex (Ferrex-150) 150 mg PO DAILY [facility] Last Admin: 09/11/17 09:07 Dose: 150 mg Risperidone (Risperdal Tab) 1 mg PO DAILY [facility] PRN Reason: Protocol Last Admin: 09/11/17 09:06 Dose: 1 mg Tamsulosin HCl (Flomax) 0.4 mg PO DAILY [facility] Last Admin: 09/11/17 09:08 Dose: 0.4 mg - Labs Labs: 09/11/17 07:00 09/11/17 07:00 PT 18.6 SECONDS (9.4-12.5) H 09/10/17 08:00 INR 1.60 (0.93-1.08) H 09/10/17 08:00 APTT 31.3 Seconds (25.1-36.5) 09/10/17 08:00 - Constitutional Appears: Well - Head Exam Head Exam: ATRAUMATIC, NORMAL INSPECTION, NORMOCEPHALIC - Eye Exam Eye Exam: EOMI, Normal appearance, PERRL Pupil Exam: NORMAL ACCOMODATION, PERRL - ENT Exam ENT Exam: Mucous Membranes Moist, Normal Exam - Neck Exam Neck Exam: Full ROM, Normal Inspection. absent: Lymphadenopathy - Respiratory Exam Respiratory Exam: Clear to Ausculation Bilateral, NORMAL BREATHING PATTERN - Cardiovascular Exam Cardiovascular Exam: REGULAR RHYTHM, +S1, +S2. absent: Murmur - GI/Abdominal Exam GI & Abdominal Exam: Soft, Normal Bowel Sounds. absent: Tenderness - Rectal Exam Rectal Exam: NORMAL INSPECTION - Exam Exam: Circumcision, NORMAL INSPECTION External exam: NORMAL EXTERNAL EXAM Speculum exam: NORMAL SPECULUM EXAM Bimanual exam: NORMAL BIMANUAL EXAM - Extremities Exam Extremities Exam: Full ROM, Normal Capillary Refill, Normal Inspection. absent : Joint Swelling, Pedal Edema - Back Exam Back Exam: NORMAL INSPECTION Additional comments: Patient has sacral decubitus ulcer on R side, draining pus - Neurological Exam Neurological Exam: Alert, Awake, CN II-XII Intact, Normal Gait, Oriented x3 - Psychiatric Exam Psychiatric exam: Normal Affect, Normal Mood - Skin Skin Exam: Dry, Intact, Normal Color, Warm Assessment and Plan - Assessment and Plan (Free Text) Assessment: Assessment and Plan 76yo M with PMHx of DM, HTN, dementia, dysphagia vision loss, UTIs was sent from [facility] for fever and AMS and was found to have anemia, MAZIN, and sepsis likely secondary to UTI with sacral osteomyelitis - Turn q2, air-mattress - orders are in - IV antibiotics - Sacral decubitus ulcer - will change dressing and packing today - Discussed plan with Dr. Regan
[2017-09-11] MEDS ORDERED: Lidocaine 2% Inj (20ml) ONE (15:51)
[2017-09-11] MEDS ORDERED: HEPARIN SODIUM/NS 1,000 ML IV ONE (15:51)
--- NOTE | 2017-09-11 16:40 | PN ---
DATE: 09/11/2017 SUBJECTIVE: The patient is seen lying in bed. He is lying comfortably. He is lethargic, minimally responsive. He does not appear to be in any distress. PHYSICAL EXAMINATION: VITAL SIGNS: Blood pressure 118/74, heart rate 80, respiratory rate 20, temperature 97.4. HEENT: Normocephalic, atraumatic, positive pallor. NECK: Supple, no JVD. LUNGS: Bilateral equal air entry, bilateral equal expansion, no rales. CARDIAC: S1 and S2, regular rate and rhythm, no murmur, no rub. ABDOMEN: Obese, distended, soft, nontender, bowel sounds present. EXTREMITIES: Heel support, shiny skin, trace edema, chronic stasis changes. INTAKE AND OUTPUT: 1300/375. LABORATORY DATA: WBC 12, hemoglobin 9, hematocrit 27, platelets 287. Sodium 136, potassium 3.9, chloride 106, CO2 of 21, BUN 72, creatinine 2.7, glucose 201, calcium 8.1, phosphorus 3.7, magnesium 2.1, albumin 1.9, corrected calcium is 9.5. Urine culture, multiple species. Blood culture, E-coli. Wound culture, Proteus. CURRENT MEDICATIONS: Mucomyst, Aricept, Colace, Drisdol, Ecotrin, Eliquis, iron, Flomax, folic acid, insulin, Ringer's lactate at 150, Lopressor 50 b.i.d., MiraLax, Pepcid, Risperdal, Rocephin 2 g daily, Tylenol. ASSESSMENT: 1. Acute kidney injury, creatinine plateaued. 2. Gram-negative bacteremia. 3. Proteus wound infection. 4. Dementia. 5. Parkinson's disease. 6. Severe degenerative joint disease. PLAN: 1. Continue IV fluids. 2. Continue antibiotics, dose for creatinine clearance about 30 mL/minute. 3. Avoid nephrotoxins. 4. Monitor fingersticks and maintain euglycemia. 5. Continue antibiotics for upper extremity DVT. Brunilda Argueta MD
--- NOTE | 2017-09-11 17:45 | VASCULAR ---
PROCEDURE: Ultrasound and fluoroscopically placed left upper extremity PICC line. HISTORY: Sepsis. Long-term IV antibiotics. Needs PICC line PHYSICIAN(S): Eliazar Cardona MD. TECHNIQUE: The relative risks and indications of the procedure were explained to the patient's family and consent obtained. The patient was placed supine on the arteriogram table and the left arm prepped and draped in the usual sterile fashion. A tourniquet was applied to the left axilla. 1% Xylocaine was used to anesthetize the skin and soft tissues at the puncture site above the elbow. The left basilic vein was punctured under direct ultrasound guidance with a micropuncture set. A 0.018 guidewire was advanced centrally and used to measure the length to the SVC/RA junction. A 5 Slovak single-lumen PICC line 46 cm long was advanced to the SVC/RA junction. The catheter was flushed and secured. The patient tolerated the procedure well. IMPRESSION: 1. Ultrasound and fluoroscopically placed left upper extremity PICC line. A 5 Slovak single-lumen PICC line 46 cm long was advanced to the SVC/RA junction.
[2017-09-11] MEDS ORDERED: Dextrose 50% SYRINGE Inj (50 ml) IVP ONE (18:37)
[2017-09-11 19:45] LABS: HEMOGLOBIN 9.5 g/dL (14.0-18.0)
--- NOTE | 2017-09-11 21:02 | CP.PCM.PN ---
Subjective - Date & Time of Evaluation Date of Evaluation: 09/11/17 Time of Evaluation: 18:15 - Subjective Subjective: Apepars comfortable Objective - Vital Signs/Intake and Output Vital Signs (last 24 hours): Temp Pulse Resp BP Pulse Ox 98.9 F 73 20 109/69 100 09/11/17 16:00 09/11/17 16:00 09/11/17 16:00 09/11/17 16:00 09/11/17 16:00 - Medications Medications: Current Medications Acetaminophen (Tylenol 325mg Tab) 650 mg PO Q4 PRN PRN Reason: FOR TEMP>=99.5F Acetaminophen (Tylenol 650 Mg Supp) 650 mg RC Q4H PRN PRN Reason: FEVER>=99.5F Acetylcysteine (Acetylcysteine 20%) 4 ml IH [id number] [facility] Last Admin: 09/11/17 20:00 Dose: 4 ml Apixaban (Eliquis) 2.5 mg PO BID [facility] PRN Reason: Protocol Aspirin (Ecotrin) 81 mg PO DAILY [facility] Last Admin: 09/11/17 09:06 Dose: 81 mg Docusate Sodium (Colace) 200 mg PO QPM [facility] Last Admin: 09/11/17 19:05 Dose: Not Given Donepezil HCl (Aricept) 10 mg PO HS [facility] Last Admin: 09/10/17 22:52 Dose: 10 mg Ergocalciferol (Drisdol 50,000 Intl Units Cap) 1 cap PO MON [facility] Last Admin: 09/07/17 10:29 Dose: 1 cap Famotidine (Pepcid) 20 mg PO DAILY [facility] Last Admin: 09/11/17 09:07 Dose: 20 mg Folic Acid (Folic Acid) 1 mg PO DAILY [facility] Last Admin: 09/11/17 09:06 Dose: 1 mg Lactated Ringer's (Lactated Ringer's) 1,000 mls @ 150 mls/hr IV .Q6H40M [facility] Last Admin: 09/11/17 08:26 Dose: 150 mls/hr Ceftriaxone Sodium (Rocephin 2 Gm Ivpb) 2 gm in 100 mls @ 100 mls/hr IVPB DAILY [facility] PRN Reason: Protocol Stop: 10/08/17 10:01 Last Admin: 09/11/17 09:11 Dose: 100 mls/hr Albumin Human (Albumin Human 25% (25 Gm/100 Ml)) 100 mls @ 1 mls/min IVPB Q8H [facility] Stop: 09/12/17 10:54 Last Admin: 09/11/17 20:33 Dose: 1 mls/min Insulin Human Lispro (Humalog Med) 0 units SC ACHS [facility] PRN Reason: Protocol Last Admin: 09/11/17 13:15 Dose: 3 units Lactic Acid (Lac-Hydrin 12% Lotion (225 G)) 0 gm EXT DAILY [facility] Last Admin: 09/11/17 09:08 Dose: 1 applic Levalbuterol HCl (Xopenex) 0.63 mg IH [id number] [facility] Last Admin: 09/11/17 20:00 Dose: 0.63 mg Metoprolol Tartrate (Lopressor) 50 mg PO BID [facility] Last Admin: 09/11/17 09:07 Dose: 50 mg Polyethylene Glycol (Miralax) 17 gm PO DAILY [facility] Last Admin: 09/11/17 09:08 Dose: 17 gm Polysaccharide Iron Complex (Ferrex-150) 150 mg PO DAILY [facility] Last Admin: 09/11/17 09:07 Dose: 150 mg Risperidone (Risperdal Tab) 1 mg PO DAILY [facility] PRN Reason: Protocol Last Admin: 09/11/17 09:06 Dose: 1 mg Tamsulosin HCl (Flomax) 0.4 mg PO DAILY [facility] Last Admin: 09/11/17 09:08 Dose: 0.4 mg - Labs Labs: 09/11/17 19:40 09/11/17 07:00 PT 18.6 SECONDS (9.4-12.5) H 09/10/17 08:00 INR 1.60 (0.93-1.08) H 09/10/17 08:00 APTT 31.3 Seconds (25.1-36.5) 09/10/17 08:00 - Head Exam Head Exam: ATRAUMATIC - Eye Exam Eye Exam: Normal appearance - ENT Exam ENT Exam: Mucous Membranes Dry - Respiratory Exam Respiratory Exam: NORMAL BREATHING PATTERN - Cardiovascular Exam Cardiovascular Exam: +S1, +S2 - GI/Abdominal Exam GI & Abdominal Exam: Normal Bowel Sounds Assessment and Plan (1) Deep vein thrombosis Assessment & Plan: ?immobility ? prior IV access related therapeutic anticoagulation for minimum 3 months Status: Acute (2) Coagulopathy Assessment & Plan: anticoagulation Status: Acute (3) Anemia Assessment & Plan: chronic disease EPO supplementation to decrease transfusion need Status: Acute (4) Leukocytosis Assessment & Plan: improving with antibiotics Status: Acute
[2017-09-11 21:19] LABS: INR 1.57 (0.93-1.08); PROTHROMBIN TIME 18.1 SECONDS (9.4-12.5)
[2017-09-12] MEDS: Lactated Ringer's 1,000 ML IV SCH ×2 (00:20→09:28)
--- NOTE | 2017-09-12 00:24 | PN ---
DATE: 09/11/2017 SUBJECTIVE: The patient is in bed in no acute distress, nontoxic. PHYSICAL EXAMINATION: VITAL SIGNS: Temperature is 98, blood pressure is 118/70, respiratory rate 20, heart rate of 88. HEENT: Unremarkable. NECK: Supple. LUNGS; Decreased breath sounds. HEART: Normal S1, S2. ABDOMEN: Soft, nontender. LABORATORY EXAMINATION: Reveals a white count of 12,400, hemoglobin of 9, platelets of 287. Chemistries reveal a BUN of 72, creatinine of 2.7 and procalcitonin is noted at 16.5. Microbiology reveals the sacral culture is Proteus and blood cultures had E. coli. Review of orders revealed the patient to be on ceftriaxone. ASSESSMENT AND PLAN: This is a 76-year-old male seen earlier this morning in 574, bed 2 with severe sepsis, E. coli bacteremia and Proteus from the sacrum with osteomyelitis, pansensitive. Recommend ceftriaxone 2 g daily x28 days for osteomyelitis with a weekly CBC, SMA-18, sed rate and C-reactive protein once weekly. We will follow with you. Jose Jennings MD
[2017-09-12] MEDS: Levalbuterol 0.63 MG/3 ML Inhal Soln UD IH SCH ×4 (01:18→21:15)
[2017-09-12] MEDS: Acetylcysteine 20% Inhal Soln (4ml) IH SCH ×4 (01:18→21:15)
[2017-09-12] MEDS: Insulin Lispro (humaLOG) MEDIUM Coverage SC SCH ×4 (07:30→21:00)
[2017-09-12] MEDS: Iron Complex Polysacch 150mg Cap PO SCH (09:30)
[2017-09-12] MEDS: POLYETHYLENE GLYCOL 3350 17 GM/Dose PACKET PO SCH (09:30)
[2017-09-12] MEDS: Ammonium Lactate 12% Lotion (225 g) EXT SCH (09:31)
[2017-09-12 10:31] LABS: HEMOGLOBIN 8.5 g/dL (14.0-18.0); MEAN CELL VOLUME 90.1 fl (80.0-105.0); MEAN CORPUSCULAR HGB CONC 33.3 g/dl (31.0-37.0); MEAN PLATELET VOLUME 9.3 fl (7.0-11.0); RBC 2.83 10^6/uL (3.5-6.1); RED CELL DISTRIBUTION WIDTH 15.3 % (11.5-14.5); WHITE BLOOD COUNT 11.8 10^3/ul (4.5-11.0)
--- NOTE | 2017-09-12 10:44 | CP.PCM.PN ---
Subjective - Date & Time of Evaluation Date of Evaluation: 09/12/17 Time of Evaluation: 06:55 - Subjective Subjective: General Surgery Pt seen and examined. No acute events. Would not answer questions. Objective - Vital Signs/Intake and Output Vital Signs (last 24 hours): Temp Pulse Resp BP Pulse Ox 97.4 F L 87 20 161/87 H 100 09/12/17 07:30 09/12/17 09:29 09/12/17 07:30 09/12/17 09:29 09/12/17 07:30 Intake and Output: 09/12/17 09/12/17 06:59 18:59 Intake Total 1440 Output Total 850 Balance 590 - Medications Medications: Current Medications Acetaminophen (Tylenol 325mg Tab) 650 mg PO Q4 PRN PRN Reason: FOR TEMP>=99.5F Acetaminophen (Tylenol 650 Mg Supp) 650 mg RC Q4H PRN PRN Reason: FEVER>=99.5F Acetylcysteine (Acetylcysteine 20%) 4 ml IH [id number] [facility] Last Admin: 09/12/17 08:35 Dose: 4 ml Apixaban (Eliquis) 2.5 mg PO BID [facility] PRN Reason: Protocol Aspirin (Ecotrin) 81 mg PO DAILY [facility] Last Admin: 09/12/17 09:30 Dose: 81 mg Docusate Sodium (Colace) 200 mg PO QPM [facility] Last Admin: 09/11/17 19:05 Dose: Not Given Donepezil HCl (Aricept) 10 mg PO HS [facility] Last Admin: 09/11/17 23:56 Dose: 10 mg Ergocalciferol (Drisdol 50,000 Intl Units Cap) 1 cap PO MON [facility] Last Admin: 09/07/17 10:29 Dose: 1 cap Famotidine (Pepcid) 20 mg PO DAILY [facility] Last Admin: 09/12/17 09:30 Dose: 20 mg Folic Acid (Folic Acid) 1 mg PO DAILY [facility] Last Admin: 09/12/17 09:29 Dose: 1 mg Lactated Ringer's (Lactated Ringer's) 1,000 mls @ 150 mls/hr IV .Q6H40M [facility] Last Admin: 09/12/17 09:28 Dose: 150 mls/hr Ceftriaxone Sodium (Rocephin 2 Gm Ivpb) 2 gm in 100 mls @ 100 mls/hr IVPB DAILY [facility] PRN Reason: Protocol Stop: 10/08/17 10:01 Last Admin: 09/11/17 09:11 Dose: 100 mls/hr Albumin Human (Albumin Human 25% (25 Gm/100 Ml)) 100 mls @ 1 mls/min IVPB Q8H [facility] Stop: 09/12/17 10:54 Last Admin: 09/12/17 02:02 Dose: 1 mls/min Insulin Human Lispro (Humalog Med) 0 units SC ACHS [facility] PRN Reason: Protocol Last Admin: 09/12/17 07:30 Dose: Not Given Lactic Acid (Lac-Hydrin 12% Lotion (225 G)) 0 gm EXT DAILY [facility] Last Admin: 09/12/17 09:31 Dose: 1 applic Levalbuterol HCl (Xopenex) 0.63 mg IH [id number] [facility] Last Admin: 09/12/17 08:36 Dose: 0.63 mg Metoprolol Tartrate (Lopressor) 50 mg PO BID [facility] Last Admin: 09/12/17 09:29 Dose: 50 mg Polyethylene Glycol (Miralax) 17 gm PO DAILY [facility] Last Admin: 09/12/17 09:30 Dose: 17 gm Polysaccharide Iron Complex (Ferrex-150) 150 mg PO DAILY [facility] Last Admin: 09/12/17 09:30 Dose: 150 mg Risperidone (Risperdal Tab) 1 mg PO DAILY [facility] PRN Reason: Protocol Last Admin: 09/12/17 09:30 Dose: 1 mg Tamsulosin HCl (Flomax) 0.4 mg PO DAILY [facility] Last Admin: 09/12/17 09:29 Dose: 0.4 mg - Labs Labs: 09/12/17 10:25 09/11/17 07:00 PT 18.1 SECONDS (9.4-12.5) H 09/11/17 21:06 INR 1.57 (0.93-1.08) H 09/11/17 21:06 APTT 31.3 Seconds (25.1-36.5) 09/10/17 08:00 - Constitutional Appears: Non-toxic, No Acute Distress - Head Exam Head Exam: ATRAUMATIC, NORMOCEPHALIC - Respiratory Exam Respiratory Exam: NORMAL BREATHING PATTERN. absent: Respiratory Distress - GI/Abdominal Exam GI & Abdominal Exam: Soft. absent: Guarding, Tenderness - Extremities Exam Extremities Exam: absent: Pedal Edema, Tenderness Additional comments: contracted in B/L LE - Back Exam Additional comments: L buttock decubiti Stage IV decubiti w. small opening ~0.5cm w. ~2cm of undermining, no odor, no necrotic tissue noted. Irrigated - no pus seen. - Neurological Exam Neurological Exam: Alert, Awake - Skin Skin Exam: Dry, Warm Assessment and Plan - Assessment and Plan (Free Text) Assessment: 76M w. sacral ducubiti Plan: -local wound care -Irrigating daily w. saline via red rubber catheter -Pack w. iodoform BID D/W Dr. Velma Ya PGY4
[2017-09-12 10:49] LABS: ALB/GLOB RATIO 0.7 (1.1-1.8); ALBUMIN 2.1 g/dL (3.0-4.8); BILIRUBIN,DIRECT 0.4 mg/dL (0.0-0.4); CALCIUM 8.2 mg/dL (8.4-10.5); MAGNESIUM 2.1 mg/dL (1.7-2.2)
[2017-09-12] MEDS ORDERED: Lactated Ringer's 1,000 ML IV SCH (10:57)
[2017-09-12] MEDS: cefTRIAXone 2 GM IN NS 2 GM/100 ML BAG IVPB SCH (12:02)
--- NOTE | 2017-09-12 12:07 | PN ---
DATE: 09/12/2017 SUBJECTIVE: The patient is seen lying in bed. He is lethargic, he is arousable. He opens his eyes to deep pain. PHYSICAL EXAMINATION: GENERAL: Obese elderly male, lying in bed. VITAL SIGNS: Blood pressure 161/87, heart rate 87, respiratory rate 20, temperature 97.4. HEENT: Normocephalic, atraumatic. NECK: Supple, no JVD. LUNGS: Bilateral equal air entry, bilateral equal expansion. CARDIAC: S1 and S2, regular rate and rhythm, no murmur, no rub. ABDOMEN: Obese, distended, soft, nontender, bowel sounds present. EXTREMITIES: No lower extremity edema. INTAKE AND OUTPUT: 1440/850. LABORATORY DATA: WBC 11.8, hemoglobin 8.5, hematocrit 25.5, platelets 259. Sodium 138, potassium 4.1, chloride 107, CO2 of 21, BUN 70, creatinine 2.6, glucose 184, calcium 8.2, phosphorus 3.8, magnesium 2.1, albumin 2.1. ASSESSMENT: 1. Acute kidney injury superimposed on chronic kidney disease stage 3. 2. Escherichia coli urinary tract infection. 3. Proteus wound infection. 4. Dementia. 5. Zyn-[id number] diabetes mellitus. 6. Hypertension. PLAN: 1. Avoid nephrotoxins. 2. Dose all antibiotics for creatinine clearance about 30 mL/minute. 3. Monitor urine output. 4. Decrease IV fluids to 80 mL/hour. 5. Strict I's and O's. Brunilda Argueta MD
[2017-09-12] MEDS ORDERED: Darbepoetin Alfa 40 mcg/ml Inj SC ONE (17:37)
[2017-09-12] MEDS ORDERED: DiphenhydrAMINE 50 mg/ml Inj IVP ONE (21:18)
--- NOTE | 2017-09-12 21:21 | CP.PCM.PN ---
Subjective - Date & Time of Evaluation Date of Evaluation: 09/12/17 Time of Evaluation: 18:45 - Subjective Subjective: Drowsy but arousable Objective - Vital Signs/Intake and Output Vital Signs (last 24 hours): Temp Pulse Resp BP Pulse Ox 97.4 F L 67 18 144/87 100 09/12/17 21:04 09/12/17 21:04 09/12/17 21:04 09/12/17 21:04 09/12/17 14:00 Intake and Output: 09/12/17 09/13/17 18:59 06:59 Intake Total 0 Balance 0 - Medications Medications: Current Medications Acetaminophen (Tylenol 325mg Tab) 650 mg PO Q4 PRN PRN Reason: FOR TEMP>=99.5F Acetaminophen (Tylenol 650 Mg Supp) 650 mg RC Q4H PRN PRN Reason: FEVER>=99.5F Acetaminophen (Tylenol 325mg Tab) 650 mg PO ONCE ONE Stop: 09/12/17 21:19 Acetylcysteine (Acetylcysteine 20%) 4 ml IH [id number] [facility] Last Admin: 09/12/17 14:01 Dose: 4 ml Apixaban (Eliquis) 2.5 mg PO BID [facility] PRN Reason: Protocol Aspirin (Ecotrin) 81 mg PO DAILY [facility] Last Admin: 09/12/17 09:30 Dose: 81 mg Diphenhydramine HCl (Benadryl) 25 mg IVP ONCE ONE Stop: 09/12/17 21:19 Docusate Sodium (Colace) 200 mg PO QPM [facility] Last Admin: 09/12/17 19:16 Dose: Not Given Donepezil HCl (Aricept) 10 mg PO HS [facility] Last Admin: 09/11/17 23:56 Dose: 10 mg Ergocalciferol (Drisdol 50,000 Intl Units Cap) 1 cap PO MON [facility] Last Admin: 09/07/17 10:29 Dose: 1 cap Famotidine (Pepcid) 20 mg PO DAILY [facility] Last Admin: 09/12/17 09:30 Dose: 20 mg Folic Acid (Folic Acid) 1 mg PO DAILY [facility] Last Admin: 09/12/17 09:29 Dose: 1 mg Ceftriaxone Sodium (Rocephin 2 Gm Ivpb) 2 gm in 100 mls @ 100 mls/hr IVPB DAILY [facility] PRN Reason: Protocol Stop: 10/08/17 10:01 Last Admin: 09/12/17 12:02 Dose: 100 mls/hr Lactated Ringer's (Lactated Ringer's) 1,000 mls @ 80 mls/hr IV .[id number] [facility] Last Admin: 09/12/17 11:50 Dose: 80 mls/hr Insulin Human Lispro (Humalog Med) 0 units SC ACHS [facility] PRN Reason: Protocol Last Admin: 09/12/17 16:56 Dose: 1 units Lactic Acid (Lac-Hydrin 12% Lotion (225 G)) 0 gm EXT DAILY [facility] Last Admin: 09/12/17 09:31 Dose: 1 applic Levalbuterol HCl (Xopenex) 0.63 mg IH [id number] [facility] Last Admin: 09/12/17 14:01 Dose: 0.63 mg Metoprolol Tartrate (Lopressor) 50 mg PO BID [facility] Last Admin: 09/12/17 17:02 Dose: 50 mg Polyethylene Glycol (Miralax) 17 gm PO DAILY [facility] Last Admin: 09/12/17 09:30 Dose: 17 gm Polysaccharide Iron Complex (Ferrex-150) 150 mg PO DAILY [facility] Last Admin: 09/12/17 09:30 Dose: 150 mg Risperidone (Risperdal Tab) 1 mg PO DAILY [facility] PRN Reason: Protocol Last Admin: 09/12/17 09:30 Dose: 1 mg Tamsulosin HCl (Flomax) 0.4 mg PO DAILY [facility] Last Admin: 09/12/17 09:29 Dose: 0.4 mg - Labs Labs: 09/12/17 10:25 09/12/17 10:25 PT 18.1 SECONDS (9.4-12.5) H 09/11/17 21:06 INR 1.57 (0.93-1.08) H 09/11/17 21:06 APTT 31.3 Seconds (25.1-36.5) 09/10/17 08:00 - Head Exam Head Exam: ATRAUMATIC - Eye Exam Eye Exam: Normal appearance - ENT Exam ENT Exam: Mucous Membranes Dry - Respiratory Exam Respiratory Exam: NORMAL BREATHING PATTERN - Cardiovascular Exam Cardiovascular Exam: +S1, +S2 - GI/Abdominal Exam GI & Abdominal Exam: Normal Bowel Sounds Assessment and Plan (1) Deep vein thrombosis Assessment & Plan: on anticoagulation minimum duration of 3 months Status: Acute (2) Coagulopathy Assessment & Plan: anticoagulation Status: Acute (3) Anemia Assessment & Plan: chronic disease and renal disease will start Aranesp today in an attempt to decrease transfusion requirements Status: Acute
--- NOTE | 2017-09-13 00:05 | PN ---
DATE: 09/12/2017 SUBJECTIVE: The patient is seen lying in the bed in room 574, bed 2. Overnight events were noted. The patient developed bleeding from the PICC line site. PICC line site had a bleeding. The patient was seen by the medical billing instructor, Dr. Park. The patient's left upper extremity PICC line area was elevated. At present, the patient's bleeding from the left arm was not noted. Pressure dressing noted. The patient is seen lying in the bed. The patient is comfortable. PHYSICAL EXAMINATION: VITAL SIGNS: T-max 98.9, down to 97.6; pulse 65-87; blood pressure 161/87, 151/92; respiration 20; O2 sat 100%. Output is only documented at yesterday is only 300. Today's output is 450. HEENT: Head examination normocephalic, atraumatic. HEENT examination shows pale conjunctivae. Anicteric sclerae. Positive bilateral eye blindness. No jugular venous distention. CHEST: Kyphosis. LUNGS: Occasional upper lung quiros anteriorly rhonchi. No crackles. Questionable decreased breath sound at the left base. CARDIOVASCULAR: S1, S2. Regular rhythm. Positive systolic murmur, left sternal border, right second intercostal space, left second intercostal space. ABDOMEN: Protuberant. Positive bowel sounds. Distended. No guarding. No rigidity. No rebound tenderness. GENITALIA: Male. Positive Mckeon catheter. Positive sacral decubitus ulceration. EXTREMITY: Shows positive swelling and edema of the right upper extremity. Positive left upper extremity PICC line with dressing. Upper and lower extremity shows flexion contractures. NEUROLOGIC: The patient is alert, awake, responsive, confused, disoriented. DIAGNOSTICS: On 09/12/2017, WBC is down to 11.8 from peak WBC of 21.5, hemoglobin and hematocrit have dropped to 8.5 and 25.5, platelet 259. PT is 18.1, INR 1.57. Sodium 138, potassium 4.1, chloride 107, CO2 of 21, anion gap 14, BUN 70, creatinine 2.6, GFR 29. Glucose 156, 191, 184, 110, 89, 83. Calcium 8.2, phosphorus 3.8, magnesium 2.1, total protein 4.9, albumin 2.1. Sacral decubitus wound culture, Proteus mirabilis. Pansensitive. IMPRESSION AND PLAN: 1. Left upper extremity peripherally inserted central catheter line site bleeding. 2. Anemia with decreasing hemoglobin and hematocrit. 3. Hypertension. 4. Leukocytosis with granulocytosis and bandemia. 5. Elevated erythrocyte sedimentation rate of greater than 136. 6. Mild coagulopathy. 7. Acute kidney injury and acute renal failure. 8. Insulin-requiring diabetes mellitus with hemoglobin A1c of 6.7. 9. Protein malnutrition and hypoalbuminemia. 10. Elevated prostate-specific antigen. 11. Proteinuria, ketonuria, hematuria, pyuria, bacteriuria. 12. Escherichia coli bacteremia and sepsis. 13. Proteus mirabilis sacral decubitus ulceration and abscess. 14. Status post 2 units packed red blood cells transfusion. 15. Status post left upper extremity peripherally inserted central catheter line placement. 16. Abnormal EEG with bihemispheric cerebral dysfunction. 17. Acute renal failure, acute kidney injury superimposed on chronic kidney disease stage 3. 18. Dementia. 19. Stage IV sacral and left gluteal decubitus ulceration. 1. Escherichia coli bacteremia and sepsis. 2. Proteinuria, ketonuria, microscopic hematuria, pyuria, bacteriuria and mixed species urinary tract infection. 3. Proteus mirabilis sacral decubitus ulceration. 4. Leukocytosis with granulocytosis with bandemia. 5. Elevated erythrocyte sedimentation rate of greater than 130. 6. Elevated reticulocyte count of 1.69. 7. Coagulopathy. 8. Acute kidney injury and acute renal failure. 9. Severe hypoalbuminemia and protein malnutrition. 10. Well-controlled insulin-requiring diabetes mellitus with hemoglobin A1c of 6.7. 11. Iron-deficiency normocytic anemia. 12. Elevated prostate-specific antigen. 13. Hyperprocalcitoninemia. 14. Transaminitis. 15. Hyperuricemia. 16. Transaminitis with hyperbilirubinemia. 17. Severe gait dysfunction and deconditioning. 18. Flexion contractures of upper and lower extremity. 19. Functional quadriplegia with bedridden status. 20. Bilateral vision loss. 21. Hyperglycemia. 22. Hypocalcemia. 23. Status post packed red blood cell transfusion x2. 24. Thoracic spine multifocal spondylosis, possibly ankylosing spondylitis. 25. Diffuse osteopenia, possible osteoporosis with degenerative joint disease of the sacral iliac joint and the left hip joint. 26. Right hip dislocation with history of right hip arthroplasty. 27. Lumbar spine spondylosis with degenerative joint disease. 28. Advanced multilevel lumbar spondylosis and facet arthropathy. 29. Sacral decubitus ulceration and abscess. 30. Degenerative joint disease and degenerative osteoarthrosis of the glenohumeral joint. 31. Bilateral upper extremity swelling and edema deep venous thrombosis of the bilateral upper extremity. 32. Severe gait dysfunction and bedridden status and functional quadriplegia. 33. Calcaneal osteophytes. 34. Questionable nondisplaced fracture of the right calcaneus with overlying soft tissue swelling. 35. Severe bone demineralization. 36. Chronic right hip dislocation. 37. Degenerative joint disease of the hips and the sacroiliac joint. 38. Recurrent chronic dislocation of the right hip joint with right hip arthroplasty with prominent heterotrophic bone. 39. Status post left upper extremity peripherally inserted central catheter line placement. 40. Acute renal failure, acute kidney injury. 41. Upper and lower extremity flexion contractures. 42. Left subclavian vein deep venous thrombosis with acute hypoechoic adherent partially occlusive thrombus. 43. Right basilic vein adherence, nonocclusive thrombus above the elbow with superficial thrombophlebitis. 1. Escherichia coli bacteremia and sepsis. 2. Proteus mirabilis sacral decubitus ulceration and abscess. 3. Multiple species urinary tract infection. 4. Sepsis. 5. High-grade fever of 103 degrees Fahrenheit. 6. Tachycardia. 7. Hypertension and hypotension. 8. Bilateral blindness secondary to diabetic retinopathy. 9. Leukocytosis with granulocytosis. 10. Elevated erythrocyte sedimentation rate of greater than 130. 11. Normocytic anemia. 12. Acute renal failure and acute kidney injury, etiology unclear. 13. Insulin-requiring diabetes mellitus with hemoglobin A1c of 6.7 and hyperglycemia. 14. Elevated prostate-specific antigen of 15.0. 15. Voiding dysfunction with urinary retention and indwelling Mckeon catheter. 16. Proteinuria, ketonuria, hematuria, pyuria, bacteriuria and mixed species urinary tract infection. 17. Status post packed red blood cell transfusion x2. 18. Provoked bilateral upper extremity deep venous thrombosis secondary to immobility. 19. Anemia of chronic kidney disease. 20. Sacral left gluteal stage III/IV decubitus ulceration and abscess. 21. Urinary retention. 22. Acute kidney injury. 23. Escherichia coli gram-negative bacteremia and sepsis. 24. Severe gait dysfunction and bedridden status and functional quadriplegia. 25. Upper and lower extremity flexion contractures. 26. Dementia. 27. Constipation. 28. Hypovitaminosis D. 1. Sacral decubitus ulceration and abscess secondary to Proteus mirabilis and Proteus mirabilis sacral decubitus ulceration and abscess. 2. Mixed species urinary tract infection. 3 High-grade fever. 4. Tachycardia. 5. Hypotension and hypertension. 6. Bilateral blindness. 7. Flexion contractures of upper and lower extremity. 8. Leukocytosis with granulocytosis and bandemia. 9. Normocytic anemia. 10. Elevated erythrocyte sedimentation rate of greater than 130. 11. Mild coagulopathy. 12. Acute renal failure, acute kidney injury with chronic kidney disease, stage IV. 13. Protein malnutrition. 14. Hypoalbuminemia. 15. Elevated prostate-specific antigen of 15. 16. Hyperbilirubinemia. 17. Well-controlled insulin-requiring diabetes mellitus with hemoglobin A1c of 6.7. 18. Hyperuricemia. 19. Iron deficiency. 20. Proteinuria, ketonuria, hematuria, bacteriuria, pyuria, and multiple species urinary tract infection. 21. Status post packed red blood cells transfusion x2. 22. Pelvic free fluid and stranding of the intrapelvic fat. 23. Scrotal swelling. 24. Prostatomegaly. 25. Bone marrow edema of the anterior inferior iliac spine on the right side, questionable reactive versus post-traumatic. 26. Pelvic bone marrow nonspecific heterogeneous signal intensity, suggestive of nonspecific increase in the cellular content in the marrow or red marrow reconversion. 27. Postoperative right hip changes. 28. Sacral decubitus ulceration with adjacent soft tissue swelling. 29. Pelvic and proximal thigh diffuse edema consistent with anasarca. 30. Questionable muscle strain of myositis with diffuse muscle edema. 31. Sacral decubitus ulceration with adjacent soft tissue swelling and left posterior paraspinal musculature and lumbosacral junction abscess and phlegmonous changes of the left lateral thigh. 32. Anasarca with diffuse edematous changes of the subcutaneous tissue of the pelvis and proximal thighs. 33. Left renal cyst. 34. Left adrenal nodular thickening. 35. Degenerative joint disease of the lower thoracic spine. 36. Lumbar spine degenerative disk disease, neural foraminal narrowing, foraminal stenosis, bilateral facet arthropathy. 37. Right bundle-branch block, left anterior hemiblock, bifascicular block. 38. Underlying chronic kidney disease, stage II/III. 39. Acute tubular necrosis. 40. Left upper extremity subclavian deep venous thrombosis and right upper extremity basilic vein deep venous thrombosis. 41. Escherichia coli bacteremia with severe sepsis. 42. Severe gait dysfunction and bedridden status and functional quadriplegia. 1. Severe sepsis secondary to Escherichia coli bacteremia and sepsis, probably secondary to urinary tract infection. 2. Possible sacral osteomyelitis with sacral decubitus ulceration, stage II/III. 3. Hypertension. 4. Visual impairment. 5. Dementia and delirium. 6. High-grade fever of 103 degrees Fahrenheit. 7. Leukocytosis with granulocytosis and bandemia. 8. Elevated erythrocyte sedimentation rate of greater than 130. 9. Normocytic anemia. 10. Status post packed red blood cell transfusion. 11. Coagulopathy. 12. Acute renal failure, acute kidney injury, etiology undetermined. 13. Insulin-requiring well-controlled diabetes mellitus with hemoglobin A1c of 6.7. 14. Iron deficiency. 15. Transaminitis. 16. Hypoalbuminemia. 17. Elevated prostate-specific antigen of greater than 15. 18. Hyperprocalcitoninemia. 19. Hyperglycemia. 20. Severe deconditioning, gait dysfunction, and possible functional quadriplegia. 21. Acute on chronic right hip dislocation. 22. Proteinuria, hematuria, pyuria, bacteriuria 23. Escherichia coli bacteremia and sepsis. 24. Multi species urinary tract infection. 25. Status post 2 units of PRBC transfusion. 26. Abnormal EEG with bihemispheric cerebral dysfunction. 27. Questionable provoked left subclavian deep venous thrombosis secondary to mobility versus IV access verses occult malignancy. 28. Coagulopathy. 29. Anemia. 30. Increased uptake of the right hip consistent with right total hip bipolar component dislocation. 31. Increased uptake left femur. 32. Degenerative joint changes of the right sternoclavicular joint. 33. Acute hypoechoic adherent partially occlusive left subclavian vein thrombosis. 34. Adherent nonocclusive thrombus in the right basilic vein. 35. Anasarca. 36. Diffuse soft tissue stranding and thickening within the subcutaneous tissue along sacrum/coccyx with air cluster and fluid within the adjacent left lower paravertebral musculature with air overlying subcutaneous tissue with foci of air within the spinal canal of the lower lumbar spine and sacrum. 37. History of right hip surgery and arthroplasty. 38. Right hip joint dislocation. 39. Right hip joint moderate heterotrophic ossification and minimal heterotropic ossification of the left hip. 40. Hip joint effusion. 41. Degenerative joint disease of the spine. 42. Diverticulosis of the colon. 43. Rectal wall thickening. 44. Sacral decubitus ulceration with sacral coccygeal osteomyelitis with probable adjacent soft tissue infection along left paravertebral musculature with possible extension into the spine. 45. Moderate anasarca 46. Malposition Mckeon catheter. 47. Urinary retention. 48. Elevated prostate-specific antigen. 49. Voiding dysfunction. 50 Mucus plugging with atelectasis, scarring and pulmonary parenchyma with mosaic pattern with intralobular septal thickening. 51. Small bilateral pleural effusion. 52. Coronary artery calcification. 53. Degenerative joint disease of the spine. 54. Minimal left gynecomastia. 55. Elevated left hemidiaphragm. 56. Hepatic cystic *------* bilateral perinephric stranding and bilateral renal cyst. 57. Colonic diverticulosis. 58. Prostatomegaly. 59. 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 60. Bilateral cerebral hemispheric dysfunction. 61. Severe sepsis. 62. Dementia. 63. Toxic metabolic encephalopathy and altered mental status. 1. Gram-negative tejal bacteremia and sepsis. 2. Questionable urinary tract infection secondary to multiple urinary tract species. 3. Hypertension. 4. Severe gait dysfunction and deconditioning and bedridden status and possible functional quadriplegia. 5. Leukocytosis with granulocytosis and bandemia. 6. Normocytic anemia. 7. Elevated erythrocyte sedimentation rate of 136. 8. Elevated reticulocyte count of 1.69. 9. Visual impairment. 10. Mild coagulopathy. 11. Acute kidney injury and acute renal failure. 12. Well-controlled insulin-requiring diabetes mellitus with hemoglobin A1c of 6.7. 13. Iron-deficiency anemia. 14. Transaminitis. 15. Hypoalbuminemia. 16. Hyperuricemia. 17. Hyperbilirubinemia. 18. Hyperprocalcitoninemia. 19. Proteinuria, ketonuria, microscopic hematuria, pyuria, bacteriuria. 20. B negative blood type. 21. Status post 2 units of packed red blood cells. 22. 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 23. Degenerative joint disease and increased uptake on the right hip consistent with dislocated right total hip. 24. Increased uptake of the left femur and degenerative joint disease of the right sternoclavicular joint. 25. Left subclavian vein deep venous thrombosis. 26. Left subclavian vein acute hypoechoic adherent partially occlusive thrombosis, provoked from immobility and possible IV access. 27. Right basilic vein adherent nonocclusive thrombosis. 28. Upper and lower extremity flexion contractures. 29. Cerebral cortical atrophy of the brain. 30. Bedridden status and functional quadriplegia. 31. Intracranial atherosclerotic disease. 32. Left mastoid partial opacification with mild mucosal sinus thickening of the sinuses. 33. Status post packed red blood cell transfusion x2. 34. Hypovitaminosis D. 35. Prostatic hypertrophy. 36. Urinary retention. 37. Elevated prostate-specific antigen of 15, questionable occult malignancy. 38. Anemia of chronic disease. 39. Sacral decubitus ulceration, stage 2. 40. Unspecified dementia. 41. Mild oropharyngeal dysphagia. 42. Mild oral dysphagia. 43. Altered mental status. 44. Flexion contractures of upper and lower extremity. 45. Toxic metabolic encephalopathy. 46. High grade fever. 47. Severe sepsis. 48. Questionable sacral coccygeal osteomyelitis with extension into the soft tissue and left paravertebral musculature with possible extension into the spine. 49. Constipation. 50. Prostatic hypertrophy with urinary retention. 1. High-grade fever. 2. Gram-negative tejal bacteremia and sepsis. 3. Stage II to III sacral decubitus ulceration. 4. Hypotension. 5. Leukocytosis with granulocytosis and bandemia. 6. Elevated erythrocyte sedimentation rate of 136. 7. Mild coagulopathy. 8. Acute kidney injury. 9. Insulin-requiring diabetes mellitus with hemoglobin A1c of 6.7. 10. Iron-deficiency anemia. 11. Transaminitis. 12. Hypoalbuminemia. 13. Severe gait dysfunction and bedridden status. 14. Sacral decubitus ulceration. 15. Hyperuricemia. 16. Hyperbilirubinemia. 17. Hyperprocalcitoninemia. 18. Proteinuria, microscopic hematuria, pyuria, bacteriuria. 19. Right femur dislocation from [place] acetabulum. 20. 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 21. Bilateral hip joint effusion and heterotrophic ossification of the right hip joint and left hip joint. 22. Degenerative joint disease of the spine. 23. Posterior sacral coccyx erosion. 24. Colonic diverticulosis. 25. 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 26. [id number] anasarca. 27. Urinary retention. 28. Mucus plugging and bilateral atelectasis. 29. Interlobular septal thickening. 30. Coronary artery calcification. 31. Degenerative joint disease of spine. 32. Mild left gynecomastia. 33. Elevated left hemidiaphragm. 34. Questionable interstitial edema and anasarca. 35. Bilateral renal cyst. 36. Colonic diverticulosis. 37. Prostatomegaly. 38. Right hip arthroplasty with dislocation of the right hip joint and moderate heterotrophic ossification about the right hip joint. 39. Anasarca. 40. Bilateral perinephric stranding and bilateral renal cyst. 41. Cerebral cortical atrophy of the brain. 42. Periventricular subcortical white matter disease of the brain. 43. Atherosclerotic intracranial arterial disease. 44. Left mastoid partial opacification. 45. Gait dysfunction. 46. Severe deconditioning. 47. Insulin-requiring diabetes mellitus. 48. Anemia, etiology undetermined. 49. Iron-deficiency anemia, etiology undetermined. 50. Incomplete right bundle branch block, left anterior hemiblock, bifascicular block. 51. Mild oral dysphagia. 1. High-grade fever of greater than 103 degrees Fahrenheit. 2. Tachycardia. 3. Hypertension and hypotension. 4. Questionable and probable sepsis. 5. Leukocytosis with granulocytosis and bandemia. 6. Normocytic anemia with decreasing hemoglobin and hematocrit. 7. Mild coagulopathy. 8. Acute renal failure, acute kidney injury. 9. Hypoglycemia. 10. Hyperuricemia. 11. Iron-deficiency normocytic anemia. 12. Transaminitis. 13. Protein malnutrition and hypoalbuminemia. 14. Sepsis with urinary tract infection with proteinuria, ketonuria, microscopic hematuria, pyuria, bacteriuria. 15. History of right hip subcapital fracture open reduction and right hip hemiarthroplasty. History of right femoral neck right hip subcapital fracture, status post surgery. 16. Dementia. 17. Psychosis. 18. Visual impairment. 19. Normocytic anemia. 20. Severe gait dysfunction. 21. Severe deconditioning. 22. History of bifascicular block, right bundle-branch block, left anterior hemiblock. 23. Cerebral cortical atrophy of the brain with periventricular subcortical white matter ischemic disease of the brain. 24. Atherosclerotic intracranial arterial disease. 25. Altered mental status and toxic metabolic encephalopathy, probably secondary to sepsis secondary to urinary tract infection with high-grade fever. 26. Dehydration and hypotension. 27. Toxic metabolic encephalopathy. 28. Anemia with decreasing hemoglobin and hematocrit. Plan at this time, the patient has been ordered transfusion of 1 unit of PRBC. The patient has been ordered repeat labs. Current consultation: 1. Infectious Disease. 2. Psychiatry. 3. Neurology. 4. Surgery. 5. Nephrology. 6. Orthopedics. 7. Urology. 8. Podiatry. 9. Hematology. 10. Interventional Radiology. The patient has been ordered transfusion of PRBC. Current medications: Mucomyst nebulizer 20% 4 mL q. 6 hours. The patient was given a dose of Aranesp 40 mcg subcu as per Hematology, Aricept 10 mg at bedtime, Colace 200 mg daily, Drisdol 50,000 units weekly, aspirin 81 mg daily, Eliquis is held since last night, will be resumed tomorrow 2.5 twice a day; Niferex-150 daily; Flomax 0.4 mg daily; folic acid 1 mg daily; Humalog medium-dose sliding scale coverage before meals and at bedtime; Lac-Hydrin lotion; ringer's lactate decreased to 80 mL an hour; Lopressor 50 mg twice a day; MiraLax 17 g daily; Pepcid 20 mg daily; Risperdal 1 mg daily. The patient is on Rocephin 2 g IV daily for 4 weeks; Tylenol 650 mg suppository p.o. q. 4 hours p.r.n. for temperature greater than or equal to 99.5; Xopenex 0.63 mg nebulizer q. 6 hours. Chest PT, dysphagia modified consistency diet. Multi Podus boot has been ordered. Head of the bed at 30 degrees. SCDs, HAIM stocking, Mckeon catheter ordered. The patient has been ordered transfusion of PRBC today over 3 hours. Overall, the patient's prognosis is extremely guarded to poor. The patient's family has been explained on multiple occasions. Dictated and electronically signed, not read. Eliezer Hanna MD [facility] # [id number] MTDMary
--- NOTE | 2017-09-13 01:11 | PN ---
DATE: 09/12/2017 SUBJECTIVE: Patient is in bed, in no acute distress, nontoxic. PHYSICAL EXAMINATION: VITAL SIGNS: Temperature is 97, blood pressure is 150/80, respiratory rate of 18. HEENT: Unremarkable. NECK: Supple. LUNGS: Have decreased breath sounds. HEART: Normal S1, S2. ABDOMEN: Soft, nontender. LABORATORY DATA: Reveals a white count of 11,800, hemoglobin of 8, platelets of 259. Chemistry reveals a BUN of 70, creatinine of 2.6, procalcitonin is 16.5. Urinalysis is noted and microbiology reveals the patient with E. coli in the blood and Proteus in the sacrum. Review of orders reveal the patient to be on ceftriaxone. ASSESSMENT AND PLAN: This is a 76-year-old male who was seen earlier this morning, admitted with severe sepsis with Escherichia coli bacteremia and Proteus from the sacrum with osteomyelitis, on ceftriaxone 2 g daily for 28 days. Recommend sed rate, C-reactive protein, CBC, and SMA-18 once weekly. Today is day #7 of 28 days of ceftriaxone. Jose Jennings MD
[2017-09-13] MEDS: Levalbuterol 0.63 MG/3 ML Inhal Soln UD IH SCH ×4 (03:13→21:29)
[2017-09-13] MEDS: Acetylcysteine 20% Inhal Soln (4ml) IH SCH ×4 (03:13→21:29)
[2017-09-13 07:42] LABS: HEMOGLOBIN 10.1 g/dL (14.0-18.0); MEAN CELL VOLUME 90.7 fl (80.0-105.0); MEAN CORPUSCULAR HEMOGLOBIN 30.4 pg (25.0-35.0); MEAN CORPUSCULAR HGB CONC 33.6 g/dl (31.0-37.0); MEAN PLATELET VOLUME 9.3 fl (7.0-11.0); RBC 3.32 10^6/uL (3.5-6.1); RED CELL DISTRIBUTION WIDTH 15.1 % (11.5-14.5); WHITE BLOOD COUNT 12.7 10^3/ul (4.5-11.0)
[2017-09-13] MEDS: Insulin Lispro (humaLOG) MEDIUM Coverage SC SCH ×4 (08:13→22:00)
[2017-09-13 08:24] LABS: ALB/GLOB RATIO 0.8 (1.1-1.8); ALBUMIN 2.2 g/dL (3.0-4.8); BILIRUBIN,DIRECT 0.2 mg/dL (0.0-0.4); CALCIUM 8.3 mg/dL (8.4-10.5); MAGNESIUM 2.2 mg/dL (1.7-2.2)
--- NOTE | 2017-09-13 10:07 | CP.PCM.PN ---
Subjective - Date & Time of Evaluation Date of Evaluation: 09/13/17 Time of Evaluation: 08:15 - Subjective Subjective: (covering for Dr. Hanna) Patient is seen this morning lying in bed in room 574 bed 2. He is arousable, confused. Objective - Vital Signs/Intake and Output Vital Signs (last 24 hours): Temp Pulse Resp BP Pulse Ox 98.0 F 61 20 183/93 H 100 09/13/17 08:00 09/13/17 08:00 09/13/17 08:00 09/13/17 08:00 09/13/17 08:00 Intake and Output: 09/13/17 09/13/17 06:59 18:59 Intake Total 2405 Output Total 825 Balance 1580 - Medications Medications: Current Medications Acetaminophen (Tylenol 325mg Tab) 650 mg PO Q4 PRN PRN Reason: FOR TEMP>=99.5F Acetaminophen (Tylenol 650 Mg Supp) 650 mg RC Q4H PRN PRN Reason: FEVER>=99.5F Acetylcysteine (Acetylcysteine 20%) 4 ml IH [id number] [facility] Last Admin: 09/13/17 09:54 Dose: 4 ml Apixaban (Eliquis) 2.5 mg PO BID [facility] PRN Reason: Protocol Aspirin (Ecotrin) 81 mg PO DAILY [facility] Last Admin: 09/12/17 09:30 Dose: 81 mg Docusate Sodium (Colace) 200 mg PO QPM [facility] Last Admin: 09/12/17 19:16 Dose: Not Given Donepezil HCl (Aricept) 10 mg PO HS [facility] Last Admin: 09/12/17 21:58 Dose: 10 mg Ergocalciferol (Drisdol 50,000 Intl Units Cap) 1 cap PO MON [facility] Last Admin: 09/07/17 10:29 Dose: 1 cap Famotidine (Pepcid) 20 mg PO DAILY [facility] Last Admin: 09/12/17 09:30 Dose: 20 mg Folic Acid (Folic Acid) 1 mg PO DAILY [facility] Last Admin: 09/12/17 09:29 Dose: 1 mg Ceftriaxone Sodium (Rocephin 2 Gm Ivpb) 2 gm in 100 mls @ 100 mls/hr IVPB DAILY [facility] PRN Reason: Protocol Stop: 10/08/17 10:01 Last Admin: 09/12/17 12:02 Dose: 100 mls/hr Lactated Ringer's (Lactated Ringer's) 1,000 mls @ 80 mls/hr IV .[id number] [facility] Last Admin: 09/12/17 11:50 Dose: 80 mls/hr Insulin Human Lispro (Humalog Med) 0 units SC ACHS [facility] PRN Reason: Protocol Last Admin: 09/13/17 08:13 Dose: Not Given Lactic Acid (Lac-Hydrin 12% Lotion (225 G)) 0 gm EXT DAILY [facility] Last Admin: 09/12/17 09:31 Dose: 1 applic Levalbuterol HCl (Xopenex) 0.63 mg IH [id number] [facility] Last Admin: 09/13/17 09:54 Dose: 0.63 mg Metoprolol Tartrate (Lopressor) 50 mg PO BID [facility] Last Admin: 09/12/17 17:02 Dose: 50 mg Polyethylene Glycol (Miralax) 17 gm PO DAILY [facility] Last Admin: 09/12/17 09:30 Dose: 17 gm Polysaccharide Iron Complex (Ferrex-150) 150 mg PO DAILY [facility] Last Admin: 09/12/17 09:30 Dose: 150 mg Risperidone (Risperdal Tab) 1 mg PO DAILY [facility] PRN Reason: Protocol Last Admin: 09/12/17 09:30 Dose: 1 mg Tamsulosin HCl (Flomax) 0.4 mg PO DAILY [facility] Last Admin: 09/12/17 09:29 Dose: 0.4 mg - Labs Labs: 09/13/17 05:00 09/13/17 05:00 PT 18.1 SECONDS (9.4-12.5) H 09/11/17 21:06 INR 1.57 (0.93-1.08) H 09/11/17 21:06 APTT 31.3 Seconds (25.1-36.5) 09/10/17 08:00 - Constitutional Appears: No Acute Distress - Respiratory Exam Respiratory Exam: Decreased Breath Sounds, NORMAL BREATHING PATTERN - Cardiovascular Exam Cardiovascular Exam: +S1, +S2 - GI/Abdominal Exam GI & Abdominal Exam: Soft, Normal Bowel Sounds - Neurological Exam Neurological Exam: Awake Assessment and Plan - Assessment and Plan (Free Text) Assessment: Proteus mirabilis sacral decubitus Acute kidney injury diabetes mellitus Anemia HTN Plan: Patient is on IV Rocephin for sepsis secondary to E. coli bacteremia and proteus mirabilis sacral decubitus infection. continue antibiotics as per infectious disease. WBC count decreased from admission but increased from yesterday. Hemoglobin improved to 10.1. Patient is on IV hydration for acute on chronic kidney injury. BUN trending downward.
[2017-09-13] MEDS: Iron Complex Polysacch 150mg Cap PO SCH (10:24)
[2017-09-13] MEDS: cefTRIAXone 2 GM IN NS 2 GM/100 ML BAG IVPB SCH (10:25)
[2017-09-13] MEDS: POLYETHYLENE GLYCOL 3350 17 GM/Dose PACKET PO SCH (10:25)
[2017-09-13] MEDS: Ammonium Lactate 12% Lotion (225 g) EXT SCH (10:26)
--- NOTE | 2017-09-13 11:07 | CP.PCM.PN ---
Subjective - Date & Time of Evaluation Date of Evaluation: 09/13/17 Time of Evaluation: 07:50 - Subjective Subjective: Pt seen and exmained at bedside. No adverse events overnight. Patient complains of pain when we roll to do the dressing change. Wound irrigated and re-dressed at bedside. Objective - Vital Signs/Intake and Output Vital Signs (last 24 hours): Temp Pulse Resp BP Pulse Ox 98.0 F 61 20 112/60 100 09/13/17 08:00 09/13/17 10:25 09/13/17 08:00 09/13/17 10:25 09/13/17 08:00 Intake and Output: 09/13/17 09/13/17 06:59 18:59 Intake Total 2405 Output Total 825 Balance 1580 - Medications Medications: Current Medications Acetaminophen (Tylenol 325mg Tab) 650 mg PO Q4 PRN PRN Reason: FOR TEMP>=99.5F Acetaminophen (Tylenol 650 Mg Supp) 650 mg RC Q4H PRN PRN Reason: FEVER>=99.5F Acetylcysteine (Acetylcysteine 20%) 4 ml IH [id number] [facility] Last Admin: 09/13/17 09:54 Dose: 4 ml Apixaban (Eliquis) 2.5 mg PO BID [facility] PRN Reason: Protocol Last Admin: 09/13/17 10:25 Dose: 2.5 mg Aspirin (Ecotrin) 81 mg PO DAILY [facility] Last Admin: 09/13/17 10:24 Dose: 81 mg Docusate Sodium (Colace) 200 mg PO QPM [facility] Last Admin: 09/12/17 19:16 Dose: Not Given Donepezil HCl (Aricept) 10 mg PO HS [facility] Last Admin: 09/12/17 21:58 Dose: 10 mg Ergocalciferol (Drisdol 50,000 Intl Units Cap) 1 cap PO MON [facility] Last Admin: 09/07/17 10:29 Dose: 1 cap Famotidine (Pepcid) 20 mg PO DAILY [facility] Last Admin: 09/13/17 10:24 Dose: 20 mg Folic Acid (Folic Acid) 1 mg PO DAILY [facility] Last Admin: 09/13/17 10:24 Dose: 1 mg Ceftriaxone Sodium (Rocephin 2 Gm Ivpb) 2 gm in 100 mls @ 100 mls/hr IVPB DAILY [facility] PRN Reason: Protocol Stop: 10/08/17 10:01 Last Admin: 09/13/17 10:25 Dose: 100 mls/hr Lactated Ringer's (Lactated Ringer's) 1,000 mls @ 80 mls/hr IV .[id number] [facility] Last Admin: 09/12/17 11:50 Dose: 80 mls/hr Insulin Human Lispro (Humalog Med) 0 units SC ACHS [facility] PRN Reason: Protocol Last Admin: 09/13/17 08:13 Dose: Not Given Lactic Acid (Lac-Hydrin 12% Lotion (225 G)) 0 gm EXT DAILY [facility] Last Admin: 09/13/17 10:26 Dose: 1 applic Levalbuterol HCl (Xopenex) 0.63 mg IH [id number] [facility] Last Admin: 09/13/17 09:54 Dose: 0.63 mg Metoprolol Tartrate (Lopressor) 50 mg PO BID [facility] Last Admin: 09/13/17 10:25 Dose: 50 mg Polyethylene Glycol (Miralax) 17 gm PO DAILY [facility] Last Admin: 09/13/17 10:25 Dose: 17 gm Polysaccharide Iron Complex (Ferrex-150) 150 mg PO DAILY [facility] Last Admin: 09/13/17 10:24 Dose: 150 mg Risperidone (Risperdal Tab) 1 mg PO DAILY [facility] PRN Reason: Protocol Last Admin: 09/13/17 10:24 Dose: 1 mg Tamsulosin HCl (Flomax) 0.4 mg PO DAILY [facility] Last Admin: 09/13/17 10:24 Dose: 0.4 mg - Labs Labs: 09/13/17 05:00 09/13/17 05:00 PT 18.1 SECONDS (9.4-12.5) H 09/11/17 21:06 INR 1.57 (0.93-1.08) H 09/11/17 21:06 APTT 31.3 Seconds (25.1-36.5) 09/10/17 08:00 - Constitutional Appears: Non-toxic, No Acute Distress, Chronically Ill - Head Exam Head Exam: ATRAUMATIC, NORMOCEPHALIC - Eye Exam Eye Exam: Normal appearance - ENT Exam ENT Exam: Mucous Membranes Moist - Respiratory Exam Respiratory Exam: NORMAL BREATHING PATTERN. absent: Accessory Muscle Use, Respiratory Distress - GI/Abdominal Exam GI & Abdominal Exam: Soft. absent: Distended - Back Exam Additional comments: sacral wound with superficial skin excoriation and a deeper track extending superiorly with serous drainage - Neurological Exam Neurological Exam: Alert, Altered, Awake - Psychiatric Exam Psychiatric exam: Normal Affect, Normal Mood - Skin Skin Exam: Dry, Normal Color, Warm Assessment and Plan - Assessment and Plan (Free Text) Assessment: 76M with sacral ducubiti with abscess in the perispinal lumbar tissue draining via sacral wound Plan: -local wound care per nursing, Irrigating daily w. saline via red rubber catheter -Pack w. iodoform BID -Continue to monitor vitals and CBC -No further surgical intervention indicated at this time. Will reconsider if patient's clinical status changes -Will continue to follow with you D/W Dr. Jass Hassan, PGY2
--- NOTE | 2017-09-13 17:17 | PN ---
DATE: 09/13/2017 SUBJECTIVE: The patient is in bed, in no acute distress, nontoxic. PHYSICAL EXAMINATION: VITAL SIGNS: temperature is 98, blood pressure is 180/90, respiratory rate of 20, heart rate of 61. HEENT: Unremarkable. NECK: Supple. LUNGS: Have decreased breath sounds. HEART: Normal S1, S2. ABDOMEN: Soft, nontender. LABORATORY DATA: Reveals the patient has a white count of 12,700, hemoglobin of 10, platelets of 243. Coagulation is noted. BUN of 64, creatinine of 2.6. Urinalysis is noted. The patient's procalcitonin 16.56. Urinalysis is noted and serology, HIV is negative. Influenza is negative. 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 Currently, on ceftriaxone, day #8 of 28 days. Recommend CBC, sed rate, C-reactive protein, and chemistries once weekly. Review of the medications reveals the ceftriaxone is active. Jose Jennings MD
[2017-09-14] MEDS: Acetylcysteine 20% Inhal Soln (4ml) IH SCH ×4 (04:15→22:24)
[2017-09-14] MEDS: Levalbuterol 0.63 MG/3 ML Inhal Soln UD IH SCH ×4 (04:15→22:25)
[2017-09-14 07:16] LABS: MEAN CELL VOLUME 90.4 fl (80.0-105.0); MEAN CORPUSCULAR HEMOGLOBIN 30.1 pg (25.0-35.0); MEAN CORPUSCULAR HGB CONC 33.3 g/dl (31.0-37.0); MEAN PLATELET VOLUME 9.5 fl (7.0-11.0); RBC 3.32 10^6/uL (3.5-6.1); RED CELL DISTRIBUTION WIDTH 15.1 % (11.5-14.5); WHITE BLOOD COUNT 11.9 10^3/ul (4.5-11.0)
[2017-09-14 07:33] LABS: ALB/GLOB RATIO 0.7 (1.1-1.8); BILIRUBIN,DIRECT 0.2 mg/dL (0.0-0.4); CALCIUM 8.3 mg/dL (8.4-10.5); MAGNESIUM 2.1 mg/dL (1.7-2.2)
--- NOTE | 2017-09-14 08:32 | CP.PCM.PN ---
Subjective - Date & Time of Evaluation Date of Evaluation: 09/14/17 Time of Evaluation: 08:28 - Subjective Subjective: surgery: Dr. Regan Patient clinically same. Per nursing no acute issues overnight. Objective - Vital Signs/Intake and Output Vital Signs (last 24 hours): Temp Pulse Resp BP Pulse Ox 97.2 F L 76 20 173/60 H 99 09/14/17 00:27 09/14/17 07:00 09/14/17 07:00 09/14/17 07:00 09/14/17 07:00 Intake and Output: 09/14/17 09/14/17 06:59 18:59 Intake Total 120 Output Total 650 Balance -530 - Medications Medications: Current Medications Acetaminophen (Tylenol 325mg Tab) 650 mg PO Q4 PRN PRN Reason: FOR TEMP>=99.5F Acetaminophen (Tylenol 650 Mg Supp) 650 mg RC Q4H PRN PRN Reason: FEVER>=99.5F Acetylcysteine (Acetylcysteine 20%) 4 ml IH [id number] [facility] Last Admin: 09/14/17 07:24 Dose: Not Given Apixaban (Eliquis) 2.5 mg PO BID [facility] PRN Reason: Protocol Last Admin: 09/13/17 17:47 Dose: 2.5 mg Aspirin (Ecotrin) 81 mg PO DAILY [facility] Last Admin: 09/13/17 10:24 Dose: 81 mg Docusate Sodium (Colace) 200 mg PO QPM [facility] Last Admin: 09/13/17 17:51 Dose: Not Given Donepezil HCl (Aricept) 10 mg PO HS [facility] Last Admin: 09/13/17 23:28 Dose: 10 mg Ergocalciferol (Drisdol 50,000 Intl Units Cap) 1 cap PO MON [facility] Last Admin: 09/07/17 10:29 Dose: 1 cap Famotidine (Pepcid) 20 mg PO DAILY [facility] Last Admin: 09/13/17 10:24 Dose: 20 mg Folic Acid (Folic Acid) 1 mg PO DAILY [facility] Last Admin: 09/13/17 10:24 Dose: 1 mg Hydralazine HCl (Apresoline) 10 mg PO QID [facility] Ceftriaxone Sodium (Rocephin 2 Gm Ivpb) 2 gm in 100 mls @ 100 mls/hr IVPB DAILY [facility] PRN Reason: Protocol Stop: 10/08/17 10:01 Last Admin: 09/13/17 10:25 Dose: 100 mls/hr Lactated Ringer's (Lactated Ringer's) 1,000 mls @ 80 mls/hr IV .[id number] [facility] Last Admin: 09/12/17 11:50 Dose: 80 mls/hr Insulin Human Lispro (Humalog Med) 0 units SC ACHS [facility] PRN Reason: Protocol Last Admin: 09/13/17 22:00 Dose: Not Given Lactic Acid (Lac-Hydrin 12% Lotion (225 G)) 0 gm EXT DAILY [facility] Last Admin: 09/13/17 10:26 Dose: 1 applic Levalbuterol HCl (Xopenex) 0.63 mg IH [id number] [facility] Last Admin: 09/14/17 07:24 Dose: Not Given Metoprolol Tartrate (Lopressor) 50 mg PO BID [facility] Last Admin: 09/13/17 17:47 Dose: 50 mg Polyethylene Glycol (Miralax) 17 gm PO DAILY [facility] Last Admin: 09/13/17 10:25 Dose: 17 gm Polysaccharide Iron Complex (Ferrex-150) 150 mg PO DAILY [facility] Last Admin: 09/13/17 10:24 Dose: 150 mg Risperidone (Risperdal Tab) 1 mg PO DAILY [facility] PRN Reason: Protocol Last Admin: 09/13/17 10:24 Dose: 1 mg Tamsulosin HCl (Flomax) 0.4 mg PO DAILY [facility] Last Admin: 09/13/17 10:24 Dose: 0.4 mg - Labs Labs: 09/14/17 06:30 09/14/17 06:30 PT 18.1 SECONDS (9.4-12.5) H 09/11/17 21:06 INR 1.57 (0.93-1.08) H 09/11/17 21:06 APTT 31.3 Seconds (25.1-36.5) 09/10/17 08:00 - Constitutional Appears: Non-toxic, No Acute Distress - Head Exam Head Exam: ATRAUMATIC, NORMOCEPHALIC - ENT Exam ENT Exam: Mucous Membranes Dry - Respiratory Exam Respiratory Exam: NORMAL BREATHING PATTERN. absent: Respiratory Distress - Cardiovascular Exam Cardiovascular Exam: REGULAR RHYTHM. absent: Tachycardia - Back Exam Additional comments: sacral wound: irrigated, fluid clear. no odor. packing replaced and optifoam dressing placed Assessment and Plan - Assessment and Plan (Free Text) Assessment: 76 y/o male w/ sacral wound and abscess Plan: -cont local wound care with irrigation and packing changes BID -on day 04/23 of Rocephin per ID -cont abx -further recs per Dr. Jass Figueroa PGY3
[2017-09-14] MEDS: Insulin Lispro (humaLOG) MEDIUM Coverage SC SCH ×4 (08:51→22:48)
--- NOTE | 2017-09-14 08:58 | PN ---
DATE: 09/11/2017 SUBJECTIVE: The patient was seen in room 574, bed 2. The patient's overnight nurse's notes were reviewed. No adverse events were documented. PHYSICAL EXAMINATION: VITAL SIGNS: T-max is 97.4-98.9; heart rate 73, 80; blood pressure 136/88, 136/70, 110/63, 118/74; respiration 18-20; O2 sat 100%. Output according to the nurses' note only 300 mL. HEENT: The patient's head examination normocephalic, atraumatic. HEENT examination shows pinkish pale conjunctivae. Dry oral mucosa. Positive bilateral blindness. No jugular venous distention. CHEST: Kyphosis. LUNGS: Shows rhonchi upper lung quiros anteriorly. CARDIOVASCULAR: S1, S2. Regular rhythm. Positive systolic murmur, left sternal border, right second intercostal space, left second intercostal space. Questionable decreased breath sound at the bases. ABDOMEN: Distended, protuberant. Positive bowel sounds. GENITALIA: Male. Positive Mckeon catheter. EXTREMITIES: Upper extremity and lower extremity shows flexion contracture. Positive swelling of the upper extremity, right more than the left. NEUROLOGIC: The patient is alert, awake, responsive, confused, disoriented. Gait examination, bedridden. MUSCULOSKELETAL: Shows a body mass index of 27. DIAGNOSTICS: On 09/11/2017, WBC 12.4, hemoglobin and hematocrit 9 and 27, platelet 287. PT 18.1, INR 1.57. Sodium 136, potassium 3.9, chloride 106, CO2 of 21, anion gap 13, BUN 72, creatinine 2.7, GFR 28, glucose 201, calcium 8.1, phosphorus 3.7, magnesium 2.1, total protein 5.1, albumin is decreased to 1.9, which is very low. Fingerstick blood sugar in the last 24 hours 211, 185, 213, 221. Sacral decubitus ulceration is growing Proteus mirabilis, which is pansensitive. IMPRESSION AND PLAN: 1. Escherichia coli bacteremia and sepsis. 2. Proteinuria, ketonuria, microscopic hematuria, pyuria, bacteriuria and mixed species urinary tract infection. 3. Proteus mirabilis sacral decubitus ulceration. 4. Leukocytosis with granulocytosis with bandemia. 5. Elevated erythrocyte sedimentation rate of greater than 130. 6. Elevated reticulocyte count of 1.69. 7. Coagulopathy. 8. Acute kidney injury and acute renal failure. 9. Severe hypoalbuminemia and protein malnutrition. 10. Well-controlled insulin-requiring diabetes mellitus with hemoglobin A1c of 6.7. 11. Iron-deficiency normocytic anemia. 12. Elevated prostate-specific antigen. 13. Hyperprocalcitoninemia. 14. Transaminitis. 15. Hyperuricemia. 16. Transaminitis with hyperbilirubinemia. 17. Severe gait dysfunction and deconditioning. 18. Flexion contractures of upper and lower extremity. 19. Functional quadriplegia with bedridden status. 20. Bilateral vision loss. 21. Hyperglycemia. 22. Hypocalcemia. 23. Status post packed red blood cell transfusion x2. 24. Thoracic spine multifocal spondylosis, possibly ankylosing spondylitis. 25. Diffuse osteopenia, possible osteoporosis with degenerative joint disease of the sacral iliac joint and the left hip joint. 26. Right hip dislocation with history of right hip arthroplasty. 27. Lumbar spine spondylosis with degenerative joint disease. 28. Advanced multilevel lumbar spondylosis and facet arthropathy. 29. Sacral decubitus ulceration and abscess. 30. Degenerative joint disease and degenerative osteoarthrosis of the glenohumeral joint. 31. Bilateral upper extremity swelling and edema deep venous thrombosis of the bilateral upper extremity. 32. Severe gait dysfunction and bedridden status and functional quadriplegia. 33. Calcaneal osteophytes. 34. Questionable nondisplaced fracture of the right calcaneus with overlying soft tissue swelling. 35. Severe bone demineralization. 36. Chronic right hip dislocation. 37. Degenerative joint disease of the hips and the sacroiliac joint. 38. Recurrent chronic dislocation of the right hip joint with right hip arthroplasty with prominent heterotrophic bone. 39. Status post left upper extremity peripherally inserted central catheter line placement. 40. Acute renal failure, acute kidney injury. 41. Upper and lower extremity flexion contractures. 42. Left subclavian vein deep venous thrombosis with acute hypoechoic adherent partially occlusive thrombus. 43. Right basilic vein adherence, nonocclusive thrombus above the elbow with superficial thrombophlebitis. 1. Escherichia coli bacteremia and sepsis. 2. Proteus mirabilis sacral decubitus ulceration and abscess. 3. Multiple species urinary tract infection. 4. Sepsis. 5. High-grade fever of 103 degrees Fahrenheit. 6. Tachycardia. 7. Hypertension and hypotension. 8. Bilateral blindness secondary to diabetic retinopathy. 9. Leukocytosis with granulocytosis. 10. Elevated erythrocyte sedimentation rate of greater than 130. 11. Normocytic anemia. 12. Acute renal failure and acute kidney injury, etiology unclear. 13. Insulin-requiring diabetes mellitus with hemoglobin A1c of 6.7 and hyperglycemia. 14. Elevated prostate-specific antigen of 15.0. 15. Voiding dysfunction with urinary retention and indwelling Mckeon catheter. 16. Proteinuria, ketonuria, hematuria, pyuria, bacteriuria and mixed species urinary tract infection. 17. Status post packed red blood cell transfusion x2. 18. Provoked bilateral upper extremity deep venous thrombosis secondary to immobility. 19. Anemia of chronic kidney disease. 20. Sacral left gluteal stage III/IV decubitus ulceration and abscess. 21. Urinary retention. 22. Acute kidney injury. 23. Escherichia coli gram-negative bacteremia and sepsis. 24. Severe gait dysfunction and bedridden status and functional quadriplegia. 25. Upper and lower extremity flexion contractures. 26. Dementia. 27. Constipation. 28. Hypovitaminosis D. 1. Sacral decubitus ulceration and abscess secondary to Proteus mirabilis and Proteus mirabilis sacral decubitus ulceration and abscess. 2. Mixed species urinary tract infection. 3 High-grade fever. 4. Tachycardia. 5. Hypotension and hypertension. 6. Bilateral blindness. 7. Flexion contractures of upper and lower extremity. 8. Leukocytosis with granulocytosis and bandemia. 9. Normocytic anemia. 10. Elevated erythrocyte sedimentation rate of greater than 130. 11. Mild coagulopathy. 12. Acute renal failure, acute kidney injury with chronic kidney disease, stage IV. 13. Protein malnutrition. 14. Hypoalbuminemia. 15. Elevated prostate-specific antigen of 15. 16. Hyperbilirubinemia. 17. Well-controlled insulin-requiring diabetes mellitus with hemoglobin A1c of 6.7. 18. Hyperuricemia. 19. Iron deficiency. 20. Proteinuria, ketonuria, hematuria, bacteriuria, pyuria, and multiple species urinary tract infection. 21. Status post packed red blood cells transfusion x2. 22. Pelvic free fluid and stranding of the intrapelvic fat. 23. Scrotal swelling. 24. Prostatomegaly. 25. Bone marrow edema of the anterior inferior iliac spine on the right side, questionable reactive versus post-traumatic. 26. Pelvic bone marrow nonspecific heterogeneous signal intensity, suggestive of nonspecific increase in the cellular content in the marrow or red marrow reconversion. 27. Postoperative right hip changes. 28. Sacral decubitus ulceration with adjacent soft tissue swelling. 29. Pelvic and proximal thigh diffuse edema consistent with anasarca. 30. Questionable muscle strain of myositis with diffuse muscle edema. 31. Sacral decubitus ulceration with adjacent soft tissue swelling and left posterior paraspinal musculature and lumbosacral junction abscess and phlegmonous changes of the left lateral thigh. 32. Anasarca with diffuse edematous changes of the subcutaneous tissue of the pelvis and proximal thighs. 33. Left renal cyst. 34. Left adrenal nodular thickening. 35. Degenerative joint disease of the lower thoracic spine. 36. Lumbar spine degenerative disk disease, neural foraminal narrowing, foraminal stenosis, bilateral facet arthropathy. 37. Right bundle-branch block, left anterior hemiblock, bifascicular block. 38. Underlying chronic kidney disease, stage II/III. 39. Acute tubular necrosis. 40. Left upper extremity subclavian deep venous thrombosis and right upper extremity basilic vein deep venous thrombosis. 41. Escherichia coli bacteremia with severe sepsis. 42. Severe gait dysfunction and bedridden status and functional quadriplegia. 1. Severe sepsis secondary to Escherichia coli bacteremia and sepsis, probably secondary to urinary tract infection. 2. Possible sacral osteomyelitis with sacral decubitus ulceration, stage II/III. 3. Hypertension. 4. Visual impairment. 5. Dementia and delirium. 6. High-grade fever of 103 degrees Fahrenheit. 7. Leukocytosis with granulocytosis and bandemia. 8. Elevated erythrocyte sedimentation rate of greater than 130. 9. Normocytic anemia. 10. Status post packed red blood cell transfusion. 11. Coagulopathy. 12. Acute renal failure, acute kidney injury, etiology undetermined. 13. Insulin-requiring well-controlled diabetes mellitus with hemoglobin A1c of 6.7. 14. Iron deficiency. 15. Transaminitis. 16. Hypoalbuminemia. 17. Elevated prostate-specific antigen of greater than 15. 18. Hyperprocalcitoninemia. 19. Hyperglycemia. 20. Severe deconditioning, gait dysfunction, and possible functional quadriplegia. 21. Acute on chronic right hip dislocation. 22. Proteinuria, hematuria, pyuria, bacteriuria 23. Escherichia coli bacteremia and sepsis. 24. Multi species urinary tract infection. 25. Status post 2 units of PRBC transfusion. 26. Abnormal EEG with bihemispheric cerebral dysfunction. 27. Questionable provoked left subclavian deep venous thrombosis secondary to mobility versus IV access verses occult malignancy. 28. Coagulopathy. 29. Anemia. 30. Increased uptake of the right hip consistent with right total hip bipolar component dislocation. 31. Increased uptake left femur. 32. Degenerative joint changes of the right sternoclavicular joint. 33. Acute hypoechoic adherent partially occlusive left subclavian vein thrombosis. 34. Adherent nonocclusive thrombus in the right basilic vein. 35. Anasarca. 36. Diffuse soft tissue stranding and thickening within the subcutaneous tissue along sacrum/coccyx with air cluster and fluid within the adjacent left lower paravertebral musculature with air overlying subcutaneous tissue with foci of air within the spinal canal of the lower lumbar spine and sacrum. 37. History of right hip surgery and arthroplasty. 38. Right hip joint dislocation. 39. Right hip joint moderate heterotrophic ossification and minimal heterotropic ossification of the left hip. 40. Hip joint effusion. 41. Degenerative joint disease of the spine. 42. Diverticulosis of the colon. 43. Rectal wall thickening. 44. Sacral decubitus ulceration with sacral coccygeal osteomyelitis with probable adjacent soft tissue infection along left paravertebral musculature with possible extension into the spine. 45. Moderate anasarca 46. Malposition Mckeon catheter. 47. Urinary retention. 48. Elevated prostate-specific antigen. 49. Voiding dysfunction. 50 Mucus plugging with atelectasis, scarring and pulmonary parenchyma with mosaic pattern with intralobular septal thickening. 51. Small bilateral pleural effusion. 52. Coronary artery calcification. 53. Degenerative joint disease of the spine. 54. Minimal left gynecomastia. 55. Elevated left hemidiaphragm. 56. Hepatic cystic *------* bilateral perinephric stranding and bilateral renal cyst. 57. Colonic diverticulosis. 58. Prostatomegaly. 59. 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 60. Bilateral cerebral hemispheric dysfunction. 61. Severe sepsis. 62. Dementia. 63. Toxic metabolic encephalopathy and altered mental status. 1. Gram-negative tejal bacteremia and sepsis. 2. Questionable urinary tract infection secondary to multiple urinary tract species. 3. Hypertension. 4. Severe gait dysfunction and deconditioning and bedridden status and possible functional quadriplegia. 5. Leukocytosis with granulocytosis and bandemia. 6. Normocytic anemia. 7. Elevated erythrocyte sedimentation rate of 136. 8. Elevated reticulocyte count of 1.69. 9. Visual impairment. 10. Mild coagulopathy. 11. Acute kidney injury and acute renal failure. 12. Well-controlled insulin-requiring diabetes mellitus with hemoglobin A1c of 6.7. 13. Iron-deficiency anemia. 14. Transaminitis. 15. Hypoalbuminemia. 16. Hyperuricemia. 17. Hyperbilirubinemia. 18. Hyperprocalcitoninemia. 19. Proteinuria, ketonuria, microscopic hematuria, pyuria, bacteriuria. 20. B negative blood type. 21. Status post 2 units of packed red blood cells. 22. 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 23. Degenerative joint disease and increased uptake on the right hip consistent with dislocated right total hip. 24. Increased uptake of the left femur and degenerative joint disease of the right sternoclavicular joint. 25. Left subclavian vein deep venous thrombosis. 26. Left subclavian vein acute hypoechoic adherent partially occlusive thrombosis, provoked from immobility and possible IV access. 27. Right basilic vein adherent nonocclusive thrombosis. 28. Upper and lower extremity flexion contractures. 29. Cerebral cortical atrophy of the brain. 30. Bedridden status and functional quadriplegia. 31. Intracranial atherosclerotic disease. 32. Left mastoid partial opacification with mild mucosal sinus thickening of the sinuses. 33. Status post packed red blood cell transfusion x2. 34. Hypovitaminosis D. 35. Prostatic hypertrophy. 36. Urinary retention. 37. Elevated prostate-specific antigen of 15, questionable occult malignancy. 38. Anemia of chronic disease. 39. Sacral decubitus ulceration, stage 2. 40. Unspecified dementia. 41. Mild oropharyngeal dysphagia. 42. Mild oral dysphagia. 43. Altered mental status. 44. Flexion contractures of upper and lower extremity. 45. Toxic metabolic encephalopathy. 46. High grade fever. 47. Severe sepsis. 48. Questionable sacral coccygeal osteomyelitis with extension into the soft tissue and left paravertebral musculature with possible extension into the spine. 49. Constipation. 50. Prostatic hypertrophy with urinary retention. 1. High-grade fever. 2. Gram-negative tejal bacteremia and sepsis. 3. Stage II to III sacral decubitus ulceration. 4. Hypotension. 5. Leukocytosis with granulocytosis and bandemia. 6. Elevated erythrocyte sedimentation rate of 136. 7. Mild coagulopathy. 8. Acute kidney injury. 9. Insulin-requiring diabetes mellitus with hemoglobin A1c of 6.7. 10. Iron-deficiency anemia. 11. Transaminitis. 12. Hypoalbuminemia. 13. Severe gait dysfunction and bedridden status. 14. Sacral decubitus ulceration. 15. Hyperuricemia. 16. Hyperbilirubinemia. 17. Hyperprocalcitoninemia. 18. Proteinuria, microscopic hematuria, pyuria, bacteriuria. 19. Right femur dislocation from poarch acetabulum. 20. 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 21. Bilateral hip joint effusion and heterotrophic ossification of the right hip joint and left hip joint. 22. Degenerative joint disease of the spine. 23. Posterior sacral coccyx erosion. 24. Colonic diverticulosis. 25. 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 26. [id number] anasarca. 27. Urinary retention. 28. Mucus plugging and bilateral atelectasis. 29. Interlobular septal thickening. 30. Coronary artery calcification. 31. Degenerative joint disease of spine. 32. Mild left gynecomastia. 33. Elevated left hemidiaphragm. 34. Questionable interstitial edema and anasarca. 35. Bilateral renal cyst. 36. Colonic diverticulosis. 37. Prostatomegaly. 38. Right hip arthroplasty with dislocation of the right hip joint and moderate heterotrophic ossification about the right hip joint. 39. Anasarca. 40. Bilateral perinephric stranding and bilateral renal cyst. 41. Cerebral cortical atrophy of the brain. 42. Periventricular subcortical white matter disease of the brain. 43. Atherosclerotic intracranial arterial disease. 44. Left mastoid partial opacification. 45. Gait dysfunction. 46. Severe deconditioning. 47. Insulin-requiring diabetes mellitus. 48. Anemia, etiology undetermined. 49. Iron-deficiency anemia, etiology undetermined. 50. Incomplete right bundle branch block, left anterior hemiblock, bifascicular block. 51. Mild oral dysphagia. 1. High-grade fever of greater than 103 degrees Fahrenheit. 2. Tachycardia. 3. Hypertension and hypotension. 4. Questionable and probable sepsis. 5. Leukocytosis with granulocytosis and bandemia. 6. Normocytic anemia with decreasing hemoglobin and hematocrit. 7. Mild coagulopathy. 8. Acute renal failure, acute kidney injury. 9. Hypoglycemia. 10. Hyperuricemia. 11. Iron-deficiency normocytic anemia. 12. Transaminitis. 13. Protein malnutrition and hypoalbuminemia. 14. Sepsis with urinary tract infection with proteinuria, ketonuria, microscopic hematuria, pyuria, bacteriuria. 15. History of right hip subcapital fracture open reduction and right hip hemiarthroplasty. History of right femoral neck right hip subcapital fracture, status post surgery. 16. Dementia. 17. Psychosis. 18. Visual impairment. 19. Normocytic anemia. 20. Severe gait dysfunction. 21. Severe deconditioning. 22. History of bifascicular block, right bundle-branch block, left anterior hemiblock. 23. Cerebral cortical atrophy of the brain with periventricular subcortical white matter ischemic disease of the brain. 24. Atherosclerotic intracranial arterial disease. 25. Altered mental status and toxic metabolic encephalopathy, probably secondary to sepsis secondary to urinary tract infection with high-grade fever. 26. Dehydration and hypotension. 27. Toxic metabolic encephalopathy. 28. Anemia with decreasing hemoglobin and hematocrit. Plan at this time, the patient has been ordered repeat labs. The patient is to be continued on aggressive IV fluid hydration. The patient's current consultation; Infectious Disease, Psychiatry, Neurology, Surgery, Nephrology, Orthopedics, Urology, Podiatry, Hematology/Oncology and Interventional Radiology. Current medications: Mucomyst nebulizer 20% every 6 hours, albumin 25% 25 g IV q. 8 hours x3, Aricept 10 mg at bedtime, Colace 200 mg daily, Drisdol 50,000 units weekly, Ecotrin 81 mg daily. The patient is on Eliquis 2.5 mg twice a day and Flomax 0.4 mg daily, folic acid 1 mg daily, Humalog medium-dose sliding scale coverage, Ringer's lactate 150 mL an hour, Lopressor 50 mg twice a day, MiraLax 17 g daily, Pepcid 20 mg daily, Risperdal 1 mg daily, Rocephin 2 g IV daily for 28 days and 4 weeks, Tylenol p.r.n. for fever, Xopenex nebulizer 0.63 mg every 6 hours. Chest PT, dysphagia modified consistency diet. The patient's overall prognosis guarded to poor. The patient's daughter, Yue Tadeo explained on multiple occasions. Dictated and electronically signed, not read. Eliezer Hanna MD [facility]
[2017-09-14] MEDS: Iron Complex Polysacch 150mg Cap PO SCH (09:09)
[2017-09-14] MEDS: Ergocalciferol 50,000 Intl Units Cap PO SCH (09:11)
[2017-09-14] MEDS: Ammonium Lactate 12% Lotion (225 g) EXT SCH (09:12)
[2017-09-14] MEDS: POLYETHYLENE GLYCOL 3350 17 GM/Dose PACKET PO SCH (09:12)
[2017-09-14] MEDS: cefTRIAXone 2 GM IN NS 2 GM/100 ML BAG IVPB SCH (10:40)
[2017-09-14 12:31] LABS: INR 1.4 (0.93-1.08); PARTIAL THROMBOPLASTIN TIME 32.9 Seconds (25.1-36.5); PROTHROMBIN TIME 16.2 SECONDS (9.4-12.5)
--- NOTE | 2017-09-14 13:44 | PN ---
DATE: SUBJECTIVE: The patient is currently seen lying supine in bed. He appears to be comfortable. He is not communicating with me. His eyes remain closed. MEDICATIONS: Medication list reviewed. The patient is currently on acetylcysteine, Apresoline, Aricept, Colace, vitamin D, Ecotrin, Eliquis, Ferrex, Flomax, folic acid, insulin, Lac-Hydrin, IV fluid lactated Ringer's, Lopressor, MiraLax, Pepcid, Risperdal, Rocephin, Tylenol p.r.n. and Xopenex. OBJECTIVE: INTAKE/OUTPUT: Intake 2405, output 825. VITAL SIGNS: Blood pressure 170/60, temperature 97.2, respiratory rate 20 with a pulse of 76. HEENT: Shows his eyes to be closed. NECK: No neck vein distention. CHEST: Clear to auscultation and percussion. No rales, no rhonchi or wheezing. CARDIOVASCULAR: Shows a regular rate and rhythm without murmurs, rubs or gallops. ABDOMEN: Soft. Nondistended, nontender. Bowel sounds are normal. BACK AREA: Positive sacral decubitus with dressing in place. EXTREMITIES: Puffy, but no pitting edema. No cyanosis or clubbing. LABORATORY DATA AND IMAGING STUDIES: CBC; white blood cell count today 11.9, hemoglobin 10.0 with a platelet count of 255,000. Chemistries showed normal electrolytes. Sodium 140, potassium 4.0, chloride 108, CO2 of 22, BUN is 62 with a creatinine of 2.6. This is down from a BUN high of 74. His baseline BUN is in the 30s. Creatinine is down from a high of 3.2 down to 2.6. His baseline creatinine is in the 1 range. Calcium is 8.3. Phosphorus is 4.2 with magnesium of 2.1. Albumin is low at 2.0. Microbiology, urine cultures are positive for E. coli, blood cultures are positive for E. coli. Wound cultures from the sacral decubitus is positive for Proteus. ASSESSMENT: 1. Acute renal failure superimposed on chronic kidney disease stage II. This is in the setting of Escherichia coli septicemia, urinary tract infection and infected sacral decubitus. 2. History of altered mental status in part secondary to sepsis. 3. Infected sacral decubitus with likely osteomyelitis. The patient will complete a 28-day course of antibiotics. 4. History of a deep venous thrombosis. Left subclavian vein and right basilic vein with superficial phlebitis. The patient remains on chronic anticoagulation with Eliquis. 5. History of anemia in part secondary to acute renal failure, in part secondary to infection. Iron saturations were low. IV iron was discontinued because of severe sepsis and bacteremia. 6. History of hypertension. The patient will continue present blood pressure medications. Systolic blood pressures have been trending higher. I will place the patient on calcium-channel ld therapy. We will avoid MARJAN inhibitors and angiotensin receptor blockers because of his elevated BUN and creatinine. 7. History of bipolar disorder, currently stable. 8. History of benign prostatic hypertrophy with an elevated PSA level. 9. History of atherosclerotic heart disease, currently stable. PLAN: 1. Continue IV fluid hydration. 2. Completely a 4-week course of antibiotics as per Infectious Disease. 3. Avoid all nephrotoxic agents. 4. Continue to monitor accurate I's and O's. 5. Continue oral iron supplements in light of the fact that the patient cannot receive IV Venofer because of the septicemia. 6. Close renal followup as his BUN and creatinine remain above baseline levels. Jonas Angeles MD
--- NOTE | 2017-09-14 15:11 | CP.PCM.PN ---
Subjective - Date & Time of Evaluation Date of Evaluation: 09/14/17 Time of Evaluation: 12:40 - Subjective Subjective: Comfortable, no fevers. Objective - Vital Signs/Intake and Output Vital Signs (last 24 hours): Temp Pulse Resp BP Pulse Ox 97.2 F L 76 20 173/60 H 99 09/14/17 00:27 09/14/17 07:00 09/14/17 07:00 09/14/17 07:00 09/14/17 07:00 Intake and Output: 09/14/17 09/14/17 06:59 18:59 Intake Total 120 Output Total 650 Balance -530 - Medications Medications: Current Medications Acetaminophen (Tylenol 325mg Tab) 650 mg PO Q4 PRN PRN Reason: FOR TEMP>=99.5F Acetaminophen (Tylenol 650 Mg Supp) 650 mg RC Q4H PRN PRN Reason: FEVER>=99.5F Acetylcysteine (Acetylcysteine 20%) 4 ml IH [id number] [facility] Last Admin: 09/14/17 07:24 Dose: Not Given Apixaban (Eliquis) 2.5 mg PO BID [facility] PRN Reason: Protocol Last Admin: 09/13/17 17:47 Dose: 2.5 mg Aspirin (Ecotrin) 81 mg PO DAILY [facility] Last Admin: 09/13/17 10:24 Dose: 81 mg Docusate Sodium (Colace) 200 mg PO QPM [facility] Last Admin: 09/13/17 17:51 Dose: Not Given Donepezil HCl (Aricept) 10 mg PO HS [facility] Last Admin: 09/13/17 23:28 Dose: 10 mg Ergocalciferol (Drisdol 50,000 Intl Units Cap) 1 cap PO MON [facility] Last Admin: 09/07/17 10:29 Dose: 1 cap Famotidine (Pepcid) 20 mg PO DAILY [facility] Last Admin: 09/13/17 10:24 Dose: 20 mg Folic Acid (Folic Acid) 1 mg PO DAILY [facility] Last Admin: 09/13/17 10:24 Dose: 1 mg Hydralazine HCl (Apresoline) 10 mg PO QID [facility] Ceftriaxone Sodium (Rocephin 2 Gm Ivpb) 2 gm in 100 mls @ 100 mls/hr IVPB DAILY [facility] PRN Reason: Protocol Stop: 10/08/17 10:01 Last Admin: 09/13/17 10:25 Dose: 100 mls/hr Lactated Ringer's (Lactated Ringer's) 1,000 mls @ 80 mls/hr IV .[id number] [facility] Last Admin: 09/12/17 11:50 Dose: 80 mls/hr Insulin Human Lispro (Humalog Med) 0 units SC ACHS [facility] PRN Reason: Protocol Last Admin: 09/13/17 22:00 Dose: Not Given Lactic Acid (Lac-Hydrin 12% Lotion (225 G)) 0 gm EXT DAILY [facility] Last Admin: 09/13/17 10:26 Dose: 1 applic Levalbuterol HCl (Xopenex) 0.63 mg IH [id number] [facility] Last Admin: 09/14/17 07:24 Dose: Not Given Metoprolol Tartrate (Lopressor) 50 mg PO BID [facility] Last Admin: 09/13/17 17:47 Dose: 50 mg Polyethylene Glycol (Miralax) 17 gm PO DAILY [facility] Last Admin: 09/13/17 10:25 Dose: 17 gm Polysaccharide Iron Complex (Ferrex-150) 150 mg PO DAILY [facility] Last Admin: 09/13/17 10:24 Dose: 150 mg Risperidone (Risperdal Tab) 1 mg PO DAILY [facility] PRN Reason: Protocol Last Admin: 09/13/17 10:24 Dose: 1 mg Tamsulosin HCl (Flomax) 0.4 mg PO DAILY [facility] Last Admin: 09/13/17 10:24 Dose: 0.4 mg - Labs Labs: 09/14/17 06:30 09/14/17 06:30 PT 18.1 SECONDS (9.4-12.5) H 09/11/17 21:06 INR 1.57 (0.93-1.08) H 09/11/17 21:06 APTT 31.3 Seconds (25.1-36.5) 09/10/17 08:00 - Constitutional Appears: Chronically Ill - Head Exam Head Exam: NORMAL INSPECTION - Respiratory Exam Respiratory Exam: Decreased Breath Sounds - Cardiovascular Exam Cardiovascular Exam: +S1, +S2 - GI/Abdominal Exam GI & Abdominal Exam: Soft. absent: Tenderness Assessment and Plan - Assessment and Plan (Free Text) Plan: Assessment severe sepsis due to E. coli bacteremia, consider due to UTI, consider sacral osteomyelitis with skin and soft tissue infection, growing Proteus history of sepsis due to bilateral HCAP and UTI with ESBL-producing Klebsiella history of right hip femoral neck fracture S/P hemiarthroplasty DM HTN obesity with BMI 33 Plan continue Rocephin day 8 of 28 - will need weekly ESR, CRP, CBC, CMP while on antibiotics reviewed CT C/A/P and bone scan - bone scan equivocal but CT scan showing probable osteomyelitis will monitor clinically
--- NOTE | 2017-09-15 01:06 | PN ---
DATE: SUBJECTIVE: The patient is seen lying in the bed in room 574, bed 2. The patient developed some oozing from the left upper extremity PICC line site. Overnight nurse's notes were reviewed. Pressure dressing was applied with hemostasis, but whenever the pressure dressing was removed, the patient had some oozing from the PICC line site. The patient is lying in the bed. The patient is comfortable, in no distress. The patient is alert, awake, responsive. Oriented to person. Disoriented to year, date, month. PHYSICAL EXAMINATION: VITAL SIGNS: The patient is afebrile; heart rate 72; blood pressure in the last 24 hours 112/60, 160/90, 170/84, 173/70, 140/82; 140, 82; respirations 18-20; O2 sat is 100%. Intake/output: Output today is 225 and 475+. HEENT: Head examination normocephalic, atraumatic. HEENT examination shows pinkish pale conjunctiva. Positive bilateral blindness. No oropharyngeal lesion. Questionable soft carotid bruit. CHEST: Kyphosis. LUNGS: Examination shows occasional rhonchi, upper lung field anteriorly. CARDIOVASCULAR: S1, S2. Questionable systolic murmur, left sternal border, right second intercostal space, left second intercostal space. ABDOMEN: Soft, protuberant. Positive bowel sound. GENITALIA: Male. Positive Mckeon catheter. EXTREMITY: Positive swelling of the right upper extremity. Positive left upper extremity PICC line with some oozing around the PICC line site noted with pressure dressing applied. Positive flexion contracture of the upper and lower extremity noted. Gait examination is bedridden. NEUROLOGIC: The patient is alert, awake, oriented x1 to 2. Body mass index is 27. Gait examination is bedridden. DIAGNOSTICS: On 09/14/2017, WBC 11.9, which has come down from admission WBC of 21.5; hemoglobin and hematocrit are 10 and 30; platelet 255. PT/PTT 16.2 and 32.9, INR is 1.40. Sodium is 140, potassium 4.0, chloride 108, CO2 of 22, anion gap 14, BUN 62, creatinine 2.6, GFR 29. Glucose 155, 150, 146, 132. Calcium 8.3, phosphorus 4.2, magnesium 2.1, total protein 5.1, albumin 2.0. Sacral decubitus wound culture growing Proteus mirabilis. Pansensitive. Repeat blood cultures negative. Initial blood cultures, E-coli. The patient received 3 units of PRBC during this hospitalization. IMPRESSION AND PLAN: 1. Escherichia coli bacteremia and sepsis. 2. Proteus mirabilis sacral decubitus ulceration and abscess. 3. High-grade fever of 103.2. 4. Hypertension. 5. Transient tachycardia. 6. Leukocytosis with granulocytosis and bandemia. 7. Elevated erythrocyte sedimentation rate of 136. 8. Elevated reticulocyte count of 1.69. 9. Mild coagulopathy. 10. Acute renal failure, acute kidney injury with underlying chronic kidney disease stage IV. 11. Insulin-requiring diabetes mellitus with hyperglycemia and hemoglobin A1c of 6.7. 12. Severe gait dysfunction and bedridden status and functional quadriplegia. 13. Upper and lower extremity flexion contractures. 14. Bilateral upper extremity deep venous thrombosis. 15. Mild protein malnutrition and hypoalbuminemia. 16. Elevated prostate-specific antigen of 15. 17. Hyperprocalcitoninemia. 18. Proteinuria, hematuria, pyuria, bacteriuria. 19. Status post packed red blood cell transfusion x3. 20. Severe gait dysfunction. 21. Bedridden status and functional quadriplegia. 22. Severe sepsis secondary to Escherichia coli bacteremia, possibly secondary to urinary tract infection. 23. History of sacral decubitus osteomyelitis. 24. Acute renal failure superimposed on chronic kidney disease stage 3. 25. Dementia. 26. Sacral decubitus ulceration and abscess. 27. Left subclavian vein and right basilic vein deep venous thrombosis. 28. Left upper extremity peripherally inserted central catheter line site oozing and bleeding. 29. Anemia secondary to chronic kidney disease and acute renal failure. 30. Hypertension. 31. Prostatic hypertrophy with elevated prostate-specific antigen. 32. Bilateral blindness. 33. Gait dysfunction. 1. Left upper extremity peripherally inserted central catheter line site bleeding. 2. Anemia with decreasing hemoglobin and hematocrit. 3. Hypertension. 4. Leukocytosis with granulocytosis and bandemia. 5. Elevated erythrocyte sedimentation rate of greater than 136. 6. Mild coagulopathy. 7. Acute kidney injury and acute renal failure. 8. Insulin-requiring diabetes mellitus with hemoglobin A1c of 6.7. 9. Protein malnutrition and hypoalbuminemia. 10. Elevated prostate-specific antigen. 11. Proteinuria, ketonuria, hematuria, pyuria, bacteriuria. 12. Escherichia coli bacteremia and sepsis. 13. Proteus mirabilis sacral decubitus ulceration and abscess. 14. Status post 2 units packed red blood cells transfusion. 15. Status post left upper extremity peripherally inserted central catheter line placement. 16. Abnormal EEG with bihemispheric cerebral dysfunction. 17. Acute renal failure, acute kidney injury superimposed on chronic kidney disease stage 3. 18. Dementia. 19. Stage IV sacral and left gluteal decubitus ulceration. 1. Escherichia coli bacteremia and sepsis. 2. Proteinuria, ketonuria, microscopic hematuria, pyuria, bacteriuria and mixed species urinary tract infection. 3. Proteus mirabilis sacral decubitus ulceration. 4. Leukocytosis with granulocytosis with bandemia. 5. Elevated erythrocyte sedimentation rate of greater than 130. 6. Elevated reticulocyte count of 1.69. 7. Coagulopathy. 8. Acute kidney injury and acute renal failure. 9. Severe hypoalbuminemia and protein malnutrition. 10. Well-controlled insulin-requiring diabetes mellitus with hemoglobin A1c of 6.7. 11. Iron-deficiency normocytic anemia. 12. Elevated prostate-specific antigen. 13. Hyperprocalcitoninemia. 14. Transaminitis. 15. Hyperuricemia. 16. Transaminitis with hyperbilirubinemia. 17. Severe gait dysfunction and deconditioning. 18. Flexion contractures of upper and lower extremity. 19. Functional quadriplegia with bedridden status. 20. Bilateral vision loss. 21. Hyperglycemia. 22. Hypocalcemia. 23. Status post packed red blood cell transfusion x2. 24. Thoracic spine multifocal spondylosis, possibly ankylosing spondylitis. 25. Diffuse osteopenia, possible osteoporosis with degenerative joint disease of the sacral iliac joint and the left hip joint. 26. Right hip dislocation with history of right hip arthroplasty. 27. Lumbar spine spondylosis with degenerative joint disease. 28. Advanced multilevel lumbar spondylosis and facet arthropathy. 29. Sacral decubitus ulceration and abscess. 30. Degenerative joint disease and degenerative osteoarthrosis of the glenohumeral joint. 31. Bilateral upper extremity swelling and edema deep venous thrombosis of the bilateral upper extremity. 32. Severe gait dysfunction and bedridden status and functional quadriplegia. 33. Calcaneal osteophytes. 34. Questionable nondisplaced fracture of the right calcaneus with overlying soft tissue swelling. 35. Severe bone demineralization. 36. Chronic right hip dislocation. 37. Degenerative joint disease of the hips and the sacroiliac joint. 38. Recurrent chronic dislocation of the right hip joint with right hip arthroplasty with prominent heterotrophic bone. 39. Status post left upper extremity peripherally inserted central catheter line placement. 40. Acute renal failure, acute kidney injury. 41. Upper and lower extremity flexion contractures. 42. Left subclavian vein deep venous thrombosis with acute hypoechoic adherent partially occlusive thrombus. 43. Right basilic vein adherence, nonocclusive thrombus above the elbow with superficial thrombophlebitis. 1. Escherichia coli bacteremia and sepsis. 2. Proteus mirabilis sacral decubitus ulceration and abscess. 3. Multiple species urinary tract infection. 4. Sepsis. 5. High-grade fever of 103 degrees Fahrenheit. 6. Tachycardia. 7. Hypertension and hypotension. 8. Bilateral blindness secondary to diabetic retinopathy. 9. Leukocytosis with granulocytosis. 10. Elevated erythrocyte sedimentation rate of greater than 130. 11. Normocytic anemia. 12. Acute renal failure and acute kidney injury, etiology unclear. 13. Insulin-requiring diabetes mellitus with hemoglobin A1c of 6.7 and hyperglycemia. 14. Elevated prostate-specific antigen of 15.0. 15. Voiding dysfunction with urinary retention and indwelling Mckeon catheter. 16. Proteinuria, ketonuria, hematuria, pyuria, bacteriuria and mixed species urinary tract infection. 17. Status post packed red blood cell transfusion x2. 18. Provoked bilateral upper extremity deep venous thrombosis secondary to immobility. 19. Anemia of chronic kidney disease. 20. Sacral left gluteal stage III/IV decubitus ulceration and abscess. 21. Urinary retention. 22. Acute kidney injury. 23. Escherichia coli gram-negative bacteremia and sepsis. 24. Severe gait dysfunction and bedridden status and functional quadriplegia. 25. Upper and lower extremity flexion contractures. 26. Dementia. 27. Constipation. 28. Hypovitaminosis D. 1. Sacral decubitus ulceration and abscess secondary to Proteus mirabilis and Proteus mirabilis sacral decubitus ulceration and abscess. 2. Mixed species urinary tract infection. 3 High-grade fever. 4. Tachycardia. 5. Hypotension and hypertension. 6. Bilateral blindness. 7. Flexion contractures of upper and lower extremity. 8. Leukocytosis with granulocytosis and bandemia. 9. Normocytic anemia. 10. Elevated erythrocyte sedimentation rate of greater than 130. 11. Mild coagulopathy. 12. Acute renal failure, acute kidney injury with chronic kidney disease, stage IV. 13. Protein malnutrition. 14. Hypoalbuminemia. 15. Elevated prostate-specific antigen of 15. 16. Hyperbilirubinemia. 17. Well-controlled insulin-requiring diabetes mellitus with hemoglobin A1c of 6.7. 18. Hyperuricemia. 19. Iron deficiency. 20. Proteinuria, ketonuria, hematuria, bacteriuria, pyuria, and multiple species urinary tract infection. 21. Status post packed red blood cells transfusion x2. 22. Pelvic free fluid and stranding of the intrapelvic fat. 23. Scrotal swelling. 24. Prostatomegaly. 25. Bone marrow edema of the anterior inferior iliac spine on the right side, questionable reactive versus post-traumatic. 26. Pelvic bone marrow nonspecific heterogeneous signal intensity, suggestive of nonspecific increase in the cellular content in the marrow or red marrow reconversion. 27. Postoperative right hip changes. 28. Sacral decubitus ulceration with adjacent soft tissue swelling. 29. Pelvic and proximal thigh diffuse edema consistent with anasarca. 30. Questionable muscle strain of myositis with diffuse muscle edema. 31. Sacral decubitus ulceration with adjacent soft tissue swelling and left posterior paraspinal musculature and lumbosacral junction abscess and phlegmonous changes of the left lateral thigh. 32. Anasarca with diffuse edematous changes of the subcutaneous tissue of the pelvis and proximal thighs. 33. Left renal cyst. 34. Left adrenal nodular thickening. 35. Degenerative joint disease of the lower thoracic spine. 36. Lumbar spine degenerative disk disease, neural foraminal narrowing, foraminal stenosis, bilateral facet arthropathy. 37. Right bundle-branch block, left anterior hemiblock, bifascicular block. 38. Underlying chronic kidney disease, stage II/III. 39. Acute tubular necrosis. 40. Left upper extremity subclavian deep venous thrombosis and right upper extremity basilic vein deep venous thrombosis. 41. Escherichia coli bacteremia with severe sepsis. 42. Severe gait dysfunction and bedridden status and functional quadriplegia. 1. Severe sepsis secondary to Escherichia coli bacteremia and sepsis, probably secondary to urinary tract infection. 2. Possible sacral osteomyelitis with sacral decubitus ulceration, stage II/III. 3. Hypertension. 4. Visual impairment. 5. Dementia and delirium. 6. High-grade fever of 103 degrees Fahrenheit. 7. Leukocytosis with granulocytosis and bandemia. 8. Elevated erythrocyte sedimentation rate of greater than 130. 9. Normocytic anemia. 10. Status post packed red blood cell transfusion. 11. Coagulopathy. 12. Acute renal failure, acute kidney injury, etiology undetermined. 13. Insulin-requiring well-controlled diabetes mellitus with hemoglobin A1c of 6.7. 14. Iron deficiency. 15. Transaminitis. 16. Hypoalbuminemia. 17. Elevated prostate-specific antigen of greater than 15. 18. Hyperprocalcitoninemia. 19. Hyperglycemia. 20. Severe deconditioning, gait dysfunction, and possible functional quadriplegia. 21. Acute on chronic right hip dislocation. 22. Proteinuria, hematuria, pyuria, bacteriuria 23. Escherichia coli bacteremia and sepsis. 24. Multi species urinary tract infection. 25. Status post 2 units of PRBC transfusion. 26. Abnormal EEG with bihemispheric cerebral dysfunction. 27. Questionable provoked left subclavian deep venous thrombosis secondary to mobility versus IV access verses occult malignancy. 28. Coagulopathy. 29. Anemia. 30. Increased uptake of the right hip consistent with right total hip bipolar component dislocation. 31. Increased uptake left femur. 32. Degenerative joint changes of the right sternoclavicular joint. 33. Acute hypoechoic adherent partially occlusive left subclavian vein thrombosis. 34. Adherent nonocclusive thrombus in the right basilic vein. 35. Anasarca. 36. Diffuse soft tissue stranding and thickening within the subcutaneous tissue along sacrum/coccyx with air cluster and fluid within the adjacent left lower paravertebral musculature with air overlying subcutaneous tissue with foci of air within the spinal canal of the lower lumbar spine and sacrum. 37. History of right hip surgery and arthroplasty. 38. Right hip joint dislocation. 39. Right hip joint moderate heterotrophic ossification and minimal heterotropic ossification of the left hip. 40. Hip joint effusion. 41. Degenerative joint disease of the spine. 42. Diverticulosis of the colon. 43. Rectal wall thickening. 44. Sacral decubitus ulceration with sacral coccygeal osteomyelitis with probable adjacent soft tissue infection along left paravertebral musculature with possible extension into the spine. 45. Moderate anasarca 46. Malposition Mckeon catheter. 47. Urinary retention. 48. Elevated prostate-specific antigen. 49. Voiding dysfunction. 50 Mucus plugging with atelectasis, scarring and pulmonary parenchyma with mosaic pattern with intralobular septal thickening. 51. Small bilateral pleural effusion. 52. Coronary artery calcification. 53. Degenerative joint disease of the spine. 54. Minimal left gynecomastia. 55. Elevated left hemidiaphragm. 56. Hepatic cystic *------* bilateral perinephric stranding and bilateral renal cyst. 57. Colonic diverticulosis. 58. Prostatomegaly. 59. 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 60. Bilateral cerebral hemispheric dysfunction. 61. Severe sepsis. 62. Dementia. 63. Toxic metabolic encephalopathy and altered mental status. 1. Gram-negative tejal bacteremia and sepsis. 2. Questionable urinary tract infection secondary to multiple urinary tract species. 3. Hypertension. 4. Severe gait dysfunction and deconditioning and bedridden status and possible functional quadriplegia. 5. Leukocytosis with granulocytosis and bandemia. 6. Normocytic anemia. 7. Elevated erythrocyte sedimentation rate of 136. 8. Elevated reticulocyte count of 1.69. 9. Visual impairment. 10. Mild coagulopathy. 11. Acute kidney injury and acute renal failure. 12. Well-controlled insulin-requiring diabetes mellitus with hemoglobin A1c of 6.7. 13. Iron-deficiency anemia. 14. Transaminitis. 15. Hypoalbuminemia. 16. Hyperuricemia. 17. Hyperbilirubinemia. 18. Hyperprocalcitoninemia. 19. Proteinuria, ketonuria, microscopic hematuria, pyuria, bacteriuria. 20. B negative blood type. 21. Status post 2 units of packed red blood cells. 22. 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 23. Degenerative joint disease and increased uptake on the right hip consistent with dislocated right total hip. 24. Increased uptake of the left femur and degenerative joint disease of the right sternoclavicular joint. 25. Left subclavian vein deep venous thrombosis. 26. Left subclavian vein acute hypoechoic adherent partially occlusive thrombosis, provoked from immobility and possible IV access. 27. Right basilic vein adherent nonocclusive thrombosis. 28. Upper and lower extremity flexion contractures. 29. Cerebral cortical atrophy of the brain. 30. Bedridden status and functional quadriplegia. 31. Intracranial atherosclerotic disease. 32. Left mastoid partial opacification with mild mucosal sinus thickening of the sinuses. 33. Status post packed red blood cell transfusion x2. 34. Hypovitaminosis D. 35. Prostatic hypertrophy. 36. Urinary retention. 37. Elevated prostate-specific antigen of 15, questionable occult malignancy. 38. Anemia of chronic disease. 39. Sacral decubitus ulceration, stage 2. 40. Unspecified dementia. 41. Mild oropharyngeal dysphagia. 42. Mild oral dysphagia. 43. Altered mental status. 44. Flexion contractures of upper and lower extremity. 45. Toxic metabolic encephalopathy. 46. High grade fever. 47. Severe sepsis. 48. Questionable sacral coccygeal osteomyelitis with extension into the soft tissue and left paravertebral musculature with possible extension into the spine. 49. Constipation. 50. Prostatic hypertrophy with urinary retention. 1. High-grade fever. 2. Gram-negative tejal bacteremia and sepsis. 3. Stage II to III sacral decubitus ulceration. 4. Hypotension. 5. Leukocytosis with granulocytosis and bandemia. 6. Elevated erythrocyte sedimentation rate of 136. 7. Mild coagulopathy. 8. Acute kidney injury. 9. Insulin-requiring diabetes mellitus with hemoglobin A1c of 6.7. 10. Iron-deficiency anemia. 11. Transaminitis. 12. Hypoalbuminemia. 13. Severe gait dysfunction and bedridden status. 14. Sacral decubitus ulceration. 15. Hyperuricemia. 16. Hyperbilirubinemia. 17. Hyperprocalcitoninemia. 18. Proteinuria, microscopic hematuria, pyuria, bacteriuria. 19. Right femur dislocation from upper sioux acetabulum. 20. 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 21. Bilateral hip joint effusion and heterotrophic ossification of the right hip joint and left hip joint. 22. Degenerative joint disease of the spine. 23. Posterior sacral coccyx erosion. 24. Colonic diverticulosis. 25. 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 26. [id number] anasarca. 27. Urinary retention. 28. Mucus plugging and bilateral atelectasis. 29. Interlobular septal thickening. 30. Coronary artery calcification. 31. Degenerative joint disease of spine. 32. Mild left gynecomastia. 33. Elevated left hemidiaphragm. 34. Questionable interstitial edema and anasarca. 35. Bilateral renal cyst. 36. Colonic diverticulosis. 37. Prostatomegaly. 38. Right hip arthroplasty with dislocation of the right hip joint and moderate heterotrophic ossification about the right hip joint. 39. Anasarca. 40. Bilateral perinephric stranding and bilateral renal cyst. 41. Cerebral cortical atrophy of the brain. 42. Periventricular subcortical white matter disease of the brain. 43. Atherosclerotic intracranial arterial disease. 44. Left mastoid partial opacification. 45. Gait dysfunction. 46. Severe deconditioning. 47. Insulin-requiring diabetes mellitus. 48. Anemia, etiology undetermined. 49. Iron-deficiency anemia, etiology undetermined. 50. Incomplete right bundle branch block, left anterior hemiblock, bifascicular block. 51. Mild oral dysphagia. 1. High-grade fever of greater than 103 degrees Fahrenheit. 2. Tachycardia. 3. Hypertension and hypotension. 4. Questionable and probable sepsis. 5. Leukocytosis with granulocytosis and bandemia. 6. Normocytic anemia with decreasing hemoglobin and hematocrit. 7. Mild coagulopathy. 8. Acute renal failure, acute kidney injury. 9. Hypoglycemia. 10. Hyperuricemia. 11. Iron-deficiency normocytic anemia. 12. Transaminitis. 13. Protein malnutrition and hypoalbuminemia. 14. Sepsis with urinary tract infection with proteinuria, ketonuria, microscopic hematuria, pyuria, bacteriuria. 15. History of right hip subcapital fracture open reduction and right hip hemiarthroplasty. History of right femoral neck right hip subcapital fracture, status post surgery. 16. Dementia. 17. Psychosis. 18. Visual impairment. 19. Normocytic anemia. 20. Severe gait dysfunction. 21. Severe deconditioning. 22. History of bifascicular block, right bundle-branch block, left anterior hemiblock. 23. Cerebral cortical atrophy of the brain with periventricular subcortical white matter ischemic disease of the brain. 24. Atherosclerotic intracranial arterial disease. 25. Altered mental status and toxic metabolic encephalopathy, probably secondary to sepsis secondary to urinary tract infection with high-grade fever. 26. Dehydration and hypotension. 27. Toxic metabolic encephalopathy. 28. Anemia with decreasing hemoglobin and hematocrit. Plan at this time, we have requested an evaluation by Vascular Surgery regarding the PICC line site oozing. Pressure dressing applied. Repeat labs ordered. Current consultation: 1. Infectious Disease. 2. Psychiatry. 3. Neurology. 4. Surgery. 5. Nephrology. 6. Orthopedics. 7. Urology. 8. Podiatry. 9. Hematology/Oncology. 10. Interventional Radiology. Current medications: Mucomyst nebulizer 20% 4 mL q. 6 hours, hydralazine 10 mg q.i.d., Aricept 10 mg at bedtime, Colace 200 mg daily, Drisdol 50,000 units weekly, Ecotrin 81 mg daily, Eliquis 2.5 mg twice a day to be resumed upon the hemostasis achieved for the left upper extremity PICC line site, Ferrex 150 mg daily, Flomax 0.4 mg daily, folic acid 1 mg daily, Humalog medium-dose sliding scale coverage before meals and at bedtime, Lac-Hydrin lotion to the feet daily, Ringer's lactate at 80 mL an hour as per Nephrology, Lopressor 50 mg twice a day, MiraLax 17 g daily, Norvasc 5 mg daily, Pepcid 20 mg daily, Risperdal 1 mg daily, Rocephin 2 g IV daily for total of 4 weeks, Tylenol 650 p.o. suppository q. 4 p.r.n., Xopenex nebulizer 0.63 mg every 6 hours. The patient's case was referred to [facility] for discharge planning. I have spoken to the patient's daughter, Yue Tadeo again today and extensively explained overall the patient's guarded prognosis and the patient's complicated medical condition and declining overall health. The patient's daughter was extensively explained that there is a very serious likelihood of the patient's condition getting worse because of the patient's multiple complicated comorbidities and medical condition and the patient also has a possible chance of worsening renal function and possible renal failure and possible need for dialysis, the patient's family agrees. I have extensively explained to the patient's daughter about extremely guarded to poor the patient's condition, which she acknowledged and understand. All questions concerned were answered to the patient's satisfaction. The patient's case was referred for discharge back to [facility] if the patient is accepted, but according to the [facility]er Diameter Technician notes, the patient the patient is not being accepted to [facility], but can be accepted to [facility] in [place], which the patient's daughter was notified by the [facility]er Diameter Technician which the patient's daughter is agreeable to. The patient will be discharged once cleared by Interventional Radiology and once the oozing from the left upper extremity PICC line site has stopped. Dictated and electronically signed, not read. Eliezer Hanna MD [place]
[2017-09-15] MEDS: Acetylcysteine 20% Inhal Soln (4ml) IH SCH ×4 (05:09→19:48)
[2017-09-15] MEDS: Levalbuterol 0.63 MG/3 ML Inhal Soln UD IH SCH ×4 (05:10→19:48)
--- NOTE | 2017-09-15 07:44 | CP.PCM.PN ---
Subjective - Date & Time of Evaluation Date of Evaluation: 09/15/17 Time of Evaluation: 07:42 - Subjective Subjective: Surgery: Dr. Regan No changes overnight. Patient for [facility] transport possibly today. Objective - Vital Signs/Intake and Output Vital Signs (last 24 hours): Temp Pulse Resp BP Pulse Ox 97.6 F 75 20 158/70 H 97 09/15/17 00:00 09/15/17 00:00 09/15/17 00:00 09/15/17 00:00 09/15/17 00:00 Intake and Output: 09/15/17 09/15/17 06:59 18:59 Intake Total 360 Output Total 775 Balance -415 - Medications Medications: Current Medications Acetaminophen (Tylenol 325mg Tab) 650 mg PO Q4 PRN PRN Reason: FOR TEMP>=99.5F Acetaminophen (Tylenol 650 Mg Supp) 650 mg RC Q4H PRN PRN Reason: FEVER>=99.5F Acetylcysteine (Acetylcysteine 20%) 4 ml IH [id number] [facility] Last Admin: 09/15/17 07:22 Dose: 4 ml Amlodipine Besylate (Norvasc) 5 mg PO DAILY [facility] Last Admin: 09/14/17 17:39 Dose: 5 mg Apixaban (Eliquis) 2.5 mg PO BID [facility] PRN Reason: Protocol Last Admin: 09/14/17 09:09 Dose: 2.5 mg Aspirin (Ecotrin) 81 mg PO DAILY [facility] Last Admin: 09/14/17 09:11 Dose: 81 mg Docusate Sodium (Colace) 200 mg PO QPM [facility] Last Admin: 09/14/17 17:38 Dose: Not Given Donepezil HCl (Aricept) 10 mg PO HS [facility] Last Admin: 09/14/17 22:52 Dose: 10 mg Ergocalciferol (Drisdol 50,000 Intl Units Cap) 1 cap PO MON [facility] Last Admin: 09/14/17 09:11 Dose: Not Given Famotidine (Pepcid) 20 mg PO DAILY [facility] Last Admin: 09/14/17 09:09 Dose: 20 mg Folic Acid (Folic Acid) 1 mg PO DAILY [facility] Last Admin: 09/14/17 09:11 Dose: 1 mg Hydralazine HCl (Apresoline) 10 mg PO QID [facility] Last Admin: 09/14/17 22:52 Dose: 10 mg Ceftriaxone Sodium (Rocephin 2 Gm Ivpb) 2 gm in 100 mls @ 100 mls/hr IVPB DAILY [facility] PRN Reason: Protocol Stop: 10/08/17 10:01 Last Admin: 09/14/17 10:40 Dose: 100 mls/hr Lactated Ringer's (Lactated Ringer's) 1,000 mls @ 80 mls/hr IV .[id number] [facility] Last Admin: 09/12/17 11:50 Dose: 80 mls/hr Insulin Human Lispro (Humalog Med) 0 units SC ACHS [facility] PRN Reason: Protocol Last Admin: 09/14/17 22:48 Dose: Not Given Lactic Acid (Lac-Hydrin 12% Lotion (225 G)) 0 gm EXT DAILY [facility] Last Admin: 09/14/17 09:12 Dose: 1 applic Levalbuterol HCl (Xopenex) 0.63 mg IH [id number] [facility] Last Admin: 09/15/17 07:22 Dose: 0.63 mg Metoprolol Tartrate (Lopressor) 50 mg PO BID [facility] Last Admin: 09/14/17 17:43 Dose: 50 mg Polyethylene Glycol (Miralax) 17 gm PO DAILY [facility] Last Admin: 09/14/17 09:12 Dose: 17 gm Polysaccharide Iron Complex (Ferrex-150) 150 mg PO DAILY [facility] Last Admin: 09/14/17 09:09 Dose: 150 mg Risperidone (Risperdal Tab) 1 mg PO DAILY [facility] PRN Reason: Protocol Last Admin: 09/14/17 09:09 Dose: 1 mg Tamsulosin HCl (Flomax) 0.4 mg PO DAILY [facility] Last Admin: 09/14/17 09:09 Dose: 0.4 mg - Labs Labs: 09/14/17 06:30 09/14/17 06:30 PT 16.2 SECONDS (9.4-12.5) H 09/14/17 12:05 INR 1.40 (0.93-1.08) H 09/14/17 12:05 APTT 32.9 Seconds (25.1-36.5) 09/14/17 12:05 - Constitutional Appears: Chronically Ill - Head Exam Head Exam: ATRAUMATIC, NORMOCEPHALIC - ENT Exam ENT Exam: Mucous Membranes Moist - Respiratory Exam Respiratory Exam: NORMAL BREATHING PATTERN. absent: Respiratory Distress - Cardiovascular Exam Cardiovascular Exam: REGULAR RHYTHM. absent: Tachycardia - Skin Additional comments: sacral wound with undermining. catheter irrigated wound, clear fluid returned packing replaced Assessment and Plan - Assessment and Plan (Free Text) Assessment: 76 y/o male w/ sacral wound and abscess Plan: -cont local wound care with irrigation and packing changes BID -on day 05/23 of Rocephin per ID -cont abx -ok for transfer to nursing facility -further recs per Dr. Regan [facility] PGY3
[2017-09-15] MEDS: Insulin Lispro (humaLOG) MEDIUM Coverage SC SCH ×4 (08:12→22:00)
[2017-09-15 08:17] LABS: ALB/GLOB RATIO 0.7 (1.1-1.8); BILIRUBIN,DIRECT 0.2 mg/dL (0.0-0.4); MAGNESIUM 2.1 mg/dL (1.7-2.2)
[2017-09-15] MEDS: Iron Complex Polysacch 150mg Cap PO SCH (11:43)
[2017-09-15] MEDS: POLYETHYLENE GLYCOL 3350 17 GM/Dose PACKET PO SCH (11:44)
[2017-09-15] MEDS: Ammonium Lactate 12% Lotion (225 g) EXT SCH (11:44)
[2017-09-15] MEDS: cefTRIAXone 2 GM IN NS 2 GM/100 ML BAG IVPB SCH (11:45)
[2017-09-15] MEDS ORDERED: Lactated Ringer's 1,000 ML IV SCH (15:33)
--- NOTE | 2017-09-15 18:03 | CP.PCM.PN ---
Subjective - Date & Time of Evaluation Date of Evaluation: 09/15/17 Time of Evaluation: 12:30 - Subjective Subjective: Comfortable, no fevers. Objective - Vital Signs/Intake and Output Vital Signs (last 24 hours): Temp Pulse Resp BP Pulse Ox 98.9 F 74 18 174/83 H 100 09/15/17 07:45 09/15/17 07:45 09/15/17 07:45 09/15/17 07:45 09/15/17 07:45 Intake and Output: 09/15/17 09/15/17 06:59 18:59 Intake Total 360 Output Total 775 Balance -415 - Medications Medications: Current Medications Acetaminophen (Tylenol 325mg Tab) 650 mg PO Q4 PRN PRN Reason: FOR TEMP>=99.5F Acetaminophen (Tylenol 650 Mg Supp) 650 mg RC Q4H PRN PRN Reason: FEVER>=99.5F Acetylcysteine (Acetylcysteine 20%) 4 ml IH [id number] [facility] Last Admin: 09/15/17 07:22 Dose: 4 ml Amlodipine Besylate (Norvasc) 5 mg PO DAILY [facility] Last Admin: 09/14/17 17:39 Dose: 5 mg Apixaban (Eliquis) 2.5 mg PO BID [facility] PRN Reason: Protocol Last Admin: 09/14/17 09:09 Dose: 2.5 mg Aspirin (Ecotrin) 81 mg PO DAILY [facility] Last Admin: 09/14/17 09:11 Dose: 81 mg Docusate Sodium (Colace) 200 mg PO QPM [facility] Last Admin: 09/14/17 17:38 Dose: Not Given Donepezil HCl (Aricept) 10 mg PO HS [facility] Last Admin: 09/14/17 22:52 Dose: 10 mg Ergocalciferol (Drisdol 50,000 Intl Units Cap) 1 cap PO MON [facility] Last Admin: 09/14/17 09:11 Dose: Not Given Famotidine (Pepcid) 20 mg PO DAILY [facility] Last Admin: 09/14/17 09:09 Dose: 20 mg Folic Acid (Folic Acid) 1 mg PO DAILY [facility] Last Admin: 09/14/17 09:11 Dose: 1 mg Hydralazine HCl (Apresoline) 10 mg PO QID [facility] Last Admin: 09/14/17 22:52 Dose: 10 mg Ceftriaxone Sodium (Rocephin 2 Gm Ivpb) 2 gm in 100 mls @ 100 mls/hr IVPB DAILY [facility] PRN Reason: Protocol Stop: 10/08/17 10:01 Last Admin: 09/14/17 10:40 Dose: 100 mls/hr Lactated Ringer's (Lactated Ringer's) 1,000 mls @ 80 mls/hr IV .[id number] [facility] Last Admin: 09/12/17 11:50 Dose: 80 mls/hr Insulin Human Lispro (Humalog Med) 0 units SC ACHS [facility] PRN Reason: Protocol Last Admin: 09/15/17 08:12 Dose: Not Given Lactic Acid (Lac-Hydrin 12% Lotion (225 G)) 0 gm EXT DAILY [facility] Last Admin: 09/14/17 09:12 Dose: 1 applic Levalbuterol HCl (Xopenex) 0.63 mg IH [id number] [facility] Last Admin: 09/15/17 07:22 Dose: 0.63 mg Metoprolol Tartrate (Lopressor) 50 mg PO BID [facility] Last Admin: 09/14/17 17:43 Dose: 50 mg Polyethylene Glycol (Miralax) 17 gm PO DAILY [facility] Last Admin: 09/14/17 09:12 Dose: 17 gm Polysaccharide Iron Complex (Ferrex-150) 150 mg PO DAILY [facility] Last Admin: 09/14/17 09:09 Dose: 150 mg Risperidone (Risperdal Tab) 1 mg PO DAILY [facility] PRN Reason: Protocol Last Admin: 09/14/17 09:09 Dose: 1 mg Tamsulosin HCl (Flomax) 0.4 mg PO DAILY [facility] Last Admin: 09/14/17 09:09 Dose: 0.4 mg - Labs Labs: 09/14/17 06:30 09/15/17 07:40 PT 16.2 SECONDS (9.4-12.5) H 09/14/17 12:05 INR 1.40 (0.93-1.08) H 09/14/17 12:05 APTT 32.9 Seconds (25.1-36.5) 09/14/17 12:05 - Constitutional Appears: Chronically Ill - Head Exam Head Exam: NORMAL INSPECTION - Respiratory Exam Respiratory Exam: Decreased Breath Sounds - Cardiovascular Exam Cardiovascular Exam: +S1, +S2 - GI/Abdominal Exam GI & Abdominal Exam: Soft. absent: Tenderness Assessment and Plan - Assessment and Plan (Free Text) Plan: Assessment severe sepsis due to E. coli bacteremia, consider due to UTI, consider sacral osteomyelitis with skin and soft tissue infection, growing Proteus history of sepsis due to bilateral HCAP and UTI with ESBL-producing Klebsiella history of right hip femoral neck fracture S/P hemiarthroplasty DM HTN obesity with BMI 33 Plan continue Rocephin day 9 of 28 - will need weekly ESR, CRP, CBC, CMP while on antibiotics reviewed CT C/A/P and bone scan - bone scan equivocal but CT scan showing probable osteomyelitis will continue to monitor clinically
--- NOTE | 2017-09-15 19:05 | PN ---
DATE: SUBJECTIVE: Patient is currently seen receiving an infusion of FFP because of bleeding at the site of the left arm PICC line. He remains mildly edematous. He remains on IV fluid hydration. His BUN and creatinine continued to trend downward, but still not at baseline levels. He is receiving antibiotics for E. coli septicemia, Proteus wound infection, sacral decubitus, and possible osteomyelitis. MEDICATIONS: Medication list reviewed. Patient is on acetylcysteine, hydralazine, Aricept, Colace, vitamin D, Ecotrin, Eliquis, Ferrex, Flomax, folic acid, insulin, Lac-Hydrin, lactated Ringer's 80 mL an hour, Lopressor, MiraLax, Norvasc, Pepcid, Risperdal, Rocephin, Tylenol p.r.n., and Xopenex. OBJECTIVE: INTAKE AND OUTPUT: Intake charted at 360 mL, which is likely not accurate. Output is 775 mL. VITAL SIGNS: Blood pressure 116/65, temperature is 98.9, respiratory rate is 18 with a pulse of 74. Pulse ox is 100%. HEENT: Eyes are closed. NECK: No neck vein distention. CHEST: Clear to auscultation and percussion. No rales, rhonchi, or wheezing. CARDIOVASCULAR: Shows regular rate and rhythm without audible murmurs, rubs, or gallops. ABDOMEN: Soft, nondistended, nontender. Bowel sounds are normal. No rebound or guarding. BACK AREA: Positive large sacral decubitus with dressing in place. EXTREMITIES: Puffy with trace to 1+ pitting thigh edema. Positive left PICC line. No cyanosis or clubbing. LABORATORY DATA AND IMAGING STUDIES: CBC: White blood cell count today 11.9, continues to improve; hemoglobin 10.0; platelet count is 255,000. Chemistries: Today, sodium 141, potassium 3.9, chloride 111 with a CO2 of 23, BUN is down to 58 from a high of 74. Creatinine is down to 2.4 from a high of 3.2 was baseline BUN is in the 30s with a baseline creatinine in the 1 range. Glucose is 161, calcium is 8.0 with an albumin of 2.0, it corrects to normal. Magnesium and phosphorus levels are normal. Microbiology: Wound cultures, sacral decubitus positive for Proteus. Blood cultures are positive for E. coli. Urine cultures are positive for multiple species, greater than 100,000 colonies/mL. ASSESSMENT: 1. Acute renal failure superimposed on chronic kidney disease, stage II. This is in the setting of E. coli septicemia, urinary tract infection, and a Proteus infected sacral decubitus with likely osteomyelitis. 2. History of altered mental status in part secondary to sepsis. 3. History of deep venous thrombosis, left subclavian vein and right basilic vein with superficial phlebitis. Patient was on Eliquis therapy. This has been placed on hold because of bleeding around the PICC line. Patient is currently receiving fresh frozen plasma. 4. History of anemia. This is in part secondary to acute renal failure, superimposed on chronic kidney disease, stage II. His iron saturations were also low and because of the bacteremia, IV iron was held. 5. History of hypertension. Blood pressure is controlled on present medical therapy. He remains on hydralazine, metoprolol, and Norvasc was started during the hospitalization. No plans to use angiotensin-converting enzyme inhibitors, angiotensin receptor blockers because of the acute renal failure superimposed on chronic kidney disease, stage II. 6. History of bipolar disorder, currently stable. 7. History of benign prostatic hypertrophy with an elevated PSA level. 8. History of atherosclerotic heart disease, currently stable. PLAN: 1. Would decrease IV fluid hydration 250 mL an hour in light of the fact that he is developing lower extremity and arm edema. 2. Complete a 28-day course of antibiotics as per Infectious Disease for treatment of osteomyelitis. 3. Avoid all nephrotoxic agents. 4. Monitor accurate I's and O's. Today's levels do not seem to be accurate. 5. Continue oral IV supplements as the patient cannot receive IV Venofer because of the septicemia. 6. Continue to monitor labs on a frequent basis in light of the elevated BUN and creatinine. Jonas Angeles MD
--- NOTE | 2017-09-15 23:12 | CP.PCM.PN ---
Subjective - Date & Time of Evaluation Date of Evaluation: 09/15/17 Time of Evaluation: 18:00 - Subjective Subjective: Appears comfortable Objective - Vital Signs/Intake and Output Vital Signs (last 24 hours): Temp Pulse Resp BP Pulse Ox 98.2 F 73 20 126/56 L 98 09/15/17 16:00 09/15/17 22:28 09/15/17 16:00 09/15/17 22:28 09/15/17 16:00 Intake and Output: 09/15/17 09/16/17 18:59 06:59 Intake Total 480 240 Output Total 400 300 Balance 80 -60 - Medications Medications: Current Medications Acetaminophen (Tylenol 325mg Tab) 650 mg PO Q4 PRN PRN Reason: FOR TEMP>=99.5F Acetaminophen (Tylenol 650 Mg Supp) 650 mg RC Q4H PRN PRN Reason: FEVER>=99.5F Acetylcysteine (Acetylcysteine 20%) 4 ml IH [id number] [facility] Last Admin: 09/15/17 19:48 Dose: 4 ml Amlodipine Besylate (Norvasc) 5 mg PO DAILY [facility] Last Admin: 09/15/17 11:44 Dose: 5 mg Apixaban (Eliquis) 2.5 mg PO BID [facility] PRN Reason: Protocol Last Admin: 09/14/17 09:09 Dose: 2.5 mg Aspirin (Ecotrin) 81 mg PO DAILY [facility] Last Admin: 09/15/17 11:43 Dose: 81 mg Docusate Sodium (Colace) 200 mg PO QPM [facility] Last Admin: 09/15/17 18:50 Dose: Not Given Donepezil HCl (Aricept) 10 mg PO HS [facility] Last Admin: 09/15/17 22:07 Dose: 10 mg Ergocalciferol (Drisdol 50,000 Intl Units Cap) 1 cap PO MON [facility] Last Admin: 09/14/17 09:11 Dose: Not Given Famotidine (Pepcid) 20 mg PO DAILY [facility] Last Admin: 09/15/17 11:45 Dose: 20 mg Folic Acid (Folic Acid) 1 mg PO DAILY [facility] Last Admin: 09/15/17 11:42 Dose: 1 mg Hydralazine HCl (Apresoline) 10 mg PO QID [facility] Last Admin: 09/15/17 22:28 Dose: 10 mg Ceftriaxone Sodium (Rocephin 2 Gm Ivpb) 2 gm in 100 mls @ 100 mls/hr IVPB DAILY [facility] PRN Reason: Protocol Stop: 10/08/17 10:01 Last Admin: 09/15/17 11:45 Dose: 100 mls/hr Lactated Ringer's (Lactated Ringer's) 1,000 mls @ 50 mls/hr IV .Q20H [facility] Last Admin: 09/15/17 18:51 Dose: 50 mls/hr Albumin Human (Albumin Human 25% (25 Gm/100 Ml)) 100 mls @ 1 mls/min IVPB Q8H [facility] Stop: 09/16/17 15:54 Insulin Human Lispro (Humalog Med) 0 units SC ACHS [facility] PRN Reason: Protocol Last Admin: 09/15/17 18:53 Dose: 1 units Lactic Acid (Lac-Hydrin 12% Lotion (225 G)) 0 gm EXT DAILY [facility] Last Admin: 09/15/17 11:44 Dose: 1 applic Levalbuterol HCl (Xopenex) 0.63 mg IH [id number] [facility] Last Admin: 09/15/17 19:48 Dose: 0.63 mg Metoprolol Tartrate (Lopressor) 50 mg PO BID [facility] Last Admin: 09/15/17 18:50 Dose: 50 mg Polyethylene Glycol (Miralax) 17 gm PO DAILY [facility] Last Admin: 09/15/17 11:44 Dose: Not Given Polysaccharide Iron Complex (Ferrex-150) 150 mg PO DAILY [facility] Last Admin: 09/15/17 11:43 Dose: 150 mg Risperidone (Risperdal Tab) 1 mg PO DAILY [facility] PRN Reason: Protocol Last Admin: 09/15/17 11:42 Dose: 1 mg Tamsulosin HCl (Flomax) 0.4 mg PO DAILY [facility] Last Admin: 09/15/17 11:42 Dose: 0.4 mg - Labs Labs: 09/14/17 06:30 09/15/17 07:40 PT 16.2 SECONDS (9.4-12.5) H 09/14/17 12:05 INR 1.40 (0.93-1.08) H 09/14/17 12:05 APTT 32.9 Seconds (25.1-36.5) 09/14/17 12:05 - Head Exam Head Exam: ATRAUMATIC - Eye Exam Eye Exam: Normal appearance - ENT Exam ENT Exam: Mucous Membranes Dry - Respiratory Exam Respiratory Exam: NORMAL BREATHING PATTERN - Cardiovascular Exam Cardiovascular Exam: +S1, +S2 - GI/Abdominal Exam GI & Abdominal Exam: Normal Bowel Sounds Assessment and Plan (1) Deep vein thrombosis Assessment & Plan: on anticoagulation minimum duration of 3 months Status: Acute (2) Anemia Assessment & Plan: chronic disease and renal disease given a dose of Aranesp in an attempt to decrease transfusion requirements Status: Acute (3) Coagulopathy Assessment & Plan: anticoagulation Status: Acute
[2017-09-16] MEDS: Levalbuterol 0.63 MG/3 ML Inhal Soln UD IH SCH ×4 (01:16→19:57)
[2017-09-16] MEDS: Acetylcysteine 20% Inhal Soln (4ml) IH SCH ×4 (01:16→19:57)
--- NOTE | 2017-09-16 05:00 | PN ---
DATE: 09/15/2017 The patient is seen in room 574, bed 2. PHYSICAL EXAMINATION: GENERAL: The patient is lying in the bed and sitting up in the bed. The patient is alert, awake, responsive, oriented x1, confused, disoriented. VITAL SIGNS: T-max 98.9, lowest 98.2. Pulse 73, 66. Blood pressure in the last 24 hours 140/82, 158/70, 174/83, respiration 20, O2 sat 98%. Output 300 mL. HEAD: Normocephalic, atraumatic. HEENT: Shows pinkish pale conjunctivae. Anicteric sclerae. Positive bilateral blindness. No oropharyngeal lesion. No neck rigidity. CHEST: Kyphosis. LUNGS: Shows decreased breath sound at the left base. CARDIOVASCULAR: S1, S2. Positive soft systolic murmur in left sternal border, right second intercostal space, left second intercostal space. ABDOMEN: Protuberant. Positive bowel sounds. GENITALIA: Male. Positive Mckeon catheter. EXTREMITIES: Show positive flexion contracture of the lower extremity. Positive edema and swelling of the bilateral upper extremity. Positive sacral decubitus ulceration. MUSCULOSKELETAL: Examination shows a body mass index of 27. DIAGNOSTICS: Chemistry shows sodium of 141, potassium of 3.9, chloride of 111, CO2 of 23, anion gap 11, BUN 58, creatinine 2.4, GFR 32, glucose 105, 170, 227, 161, 148, 113. Calcium 8.0, phosphorus 4.0, magnesium 2.1. LFTs are normal. Total protein 4.9, albumin 2.0. The patient still has a bleeding from the left upper extremity PICC line site and oozing from the PICC line site. The patient is ordered 1 unit of FFP. IMPRESSION AND PLAN: 1. Acute renal failure with acute kidney injury. 2. Sacral decubitus ulceration and abscess. 3. Escherichia coli bacteremia and sepsis. 4. Proteus mirabilis sacral decubitus ulceration and abscess. 5. Hypertension. 6. Bilateral visual loss. 7. Leukocytosis with granulocytosis. 8. Normocytic anemia with decreasing hemoglobin and hematocrit. 9. Elevated erythrocyte sedimentation rate of greater than 136. 10. Bandemia. 11. Mild coagulopathy. 12. Acute renal failure, slow resolving. 13. Moderate protein malnutrition and hypoalbuminemia. 14. Bilateral upper extremity edema and deep venous thrombosis. 15. Proteinuria, ketonuria, hematuria, pyuria, bacteriuria. 16. Multiple species contaminated urinary tract infection. 17. Status post 3 units of PRBC and 1 unit FFP transfusion. 18. Questionable coagulopathy with left upper extremity PICC line site bleeding. 19. Severe sepsis secondary to Escherichia coli bacteremia and urinary tract infection. 20. Acute exacerbation of dementia. 21. Severe gait dysfunction and functional quadriplegia. 1. Escherichia coli bacteremia and sepsis. 2. Proteus mirabilis sacral decubitus ulceration and abscess. 3. High-grade fever of 103.2. 4. Hypertension. 5. Transient tachycardia. 6. Leukocytosis with granulocytosis and bandemia. 7. Elevated erythrocyte sedimentation rate of 136. 8. Elevated reticulocyte count of 1.69. 9. Mild coagulopathy. 10. Acute renal failure, acute kidney injury with underlying chronic kidney disease stage IV. 11. Insulin-requiring diabetes mellitus with hyperglycemia and hemoglobin A1c of 6.7. 12. Severe gait dysfunction and bedridden status and functional quadriplegia. 13. Upper and lower extremity flexion contractures. 14. Bilateral upper extremity deep venous thrombosis. 15. Mild protein malnutrition and hypoalbuminemia. 16. Elevated prostate-specific antigen of 15. 17. Hyperprocalcitoninemia. 18. Proteinuria, hematuria, pyuria, bacteriuria. 19. Status post packed red blood cell transfusion x3. 20. Severe gait dysfunction. 21. Bedridden status and functional quadriplegia. 22. Severe sepsis secondary to Escherichia coli bacteremia, possibly secondary to urinary tract infection. 23. History of sacral decubitus osteomyelitis. 24. Acute renal failure superimposed on chronic kidney disease stage 3. 25. Dementia. 26. Sacral decubitus ulceration and abscess. 27. Left subclavian vein and right basilic vein deep venous thrombosis. 28. Left upper extremity peripherally inserted central catheter line site oozing and bleeding. 29. Anemia secondary to chronic kidney disease and acute renal failure. 30. Hypertension. 31. Prostatic hypertrophy with elevated prostate-specific antigen. 32. Bilateral blindness. 33. Gait dysfunction. 1. Left upper extremity peripherally inserted central catheter line site bleeding. 2. Anemia with decreasing hemoglobin and hematocrit. 3. Hypertension. 4. Leukocytosis with granulocytosis and bandemia. 5. Elevated erythrocyte sedimentation rate of greater than 136. 6. Mild coagulopathy. 7. Acute kidney injury and acute renal failure. 8. Insulin-requiring diabetes mellitus with hemoglobin A1c of 6.7. 9. Protein malnutrition and hypoalbuminemia. 10. Elevated prostate-specific antigen. 11. Proteinuria, ketonuria, hematuria, pyuria, bacteriuria. 12. Escherichia coli bacteremia and sepsis. 13. Proteus mirabilis sacral decubitus ulceration and abscess. 14. Status post 2 units packed red blood cells transfusion. 15. Status post left upper extremity peripherally inserted central catheter line placement. 16. Abnormal EEG with bihemispheric cerebral dysfunction. 17. Acute renal failure, acute kidney injury superimposed on chronic kidney disease stage 3. 18. Dementia. 19. Stage IV sacral and left gluteal decubitus ulceration. 1. Escherichia coli bacteremia and sepsis. 2. Proteinuria, ketonuria, microscopic hematuria, pyuria, bacteriuria and mixed species urinary tract infection. 3. Proteus mirabilis sacral decubitus ulceration. 4. Leukocytosis with granulocytosis with bandemia. 5. Elevated erythrocyte sedimentation rate of greater than 130. 6. Elevated reticulocyte count of 1.69. 7. Coagulopathy. 8. Acute kidney injury and acute renal failure. 9. Severe hypoalbuminemia and protein malnutrition. 10. Well-controlled insulin-requiring diabetes mellitus with hemoglobin A1c of 6.7. 11. Iron-deficiency normocytic anemia. 12. Elevated prostate-specific antigen. 13. Hyperprocalcitoninemia. 14. Transaminitis. 15. Hyperuricemia. 16. Transaminitis with hyperbilirubinemia. 17. Severe gait dysfunction and deconditioning. 18. Flexion contractures of upper and lower extremity. 19. Functional quadriplegia with bedridden status. 20. Bilateral vision loss. 21. Hyperglycemia. 22. Hypocalcemia. 23. Status post packed red blood cell transfusion x2. 24. Thoracic spine multifocal spondylosis, possibly ankylosing spondylitis. 25. Diffuse osteopenia, possible osteoporosis with degenerative joint disease of the sacral iliac joint and the left hip joint. 26. Right hip dislocation with history of right hip arthroplasty. 27. Lumbar spine spondylosis with degenerative joint disease. 28. Advanced multilevel lumbar spondylosis and facet arthropathy. 29. Sacral decubitus ulceration and abscess. 30. Degenerative joint disease and degenerative osteoarthrosis of the glenohumeral joint. 31. Bilateral upper extremity swelling and edema deep venous thrombosis of the bilateral upper extremity. 32. Severe gait dysfunction and bedridden status and functional quadriplegia. 33. Calcaneal osteophytes. 34. Questionable nondisplaced fracture of the right calcaneus with overlying soft tissue swelling. 35. Severe bone demineralization. 36. Chronic right hip dislocation. 37. Degenerative joint disease of the hips and the sacroiliac joint. 38. Recurrent chronic dislocation of the right hip joint with right hip arthroplasty with prominent heterotrophic bone. 39. Status post left upper extremity peripherally inserted central catheter line placement. 40. Acute renal failure, acute kidney injury. 41. Upper and lower extremity flexion contractures. 42. Left subclavian vein deep venous thrombosis with acute hypoechoic adherent partially occlusive thrombus. 43. Right basilic vein adherence, nonocclusive thrombus above the elbow with superficial thrombophlebitis. 1. Escherichia coli bacteremia and sepsis. 2. Proteus mirabilis sacral decubitus ulceration and abscess. 3. Multiple species urinary tract infection. 4. Sepsis. 5. High-grade fever of 103 degrees Fahrenheit. 6. Tachycardia. 7. Hypertension and hypotension. 8. Bilateral blindness secondary to diabetic retinopathy. 9. Leukocytosis with granulocytosis. 10. Elevated erythrocyte sedimentation rate of greater than 130. 11. Normocytic anemia. 12. Acute renal failure and acute kidney injury, etiology unclear. 13. Insulin-requiring diabetes mellitus with hemoglobin A1c of 6.7 and hyperglycemia. 14. Elevated prostate-specific antigen of 15.0. 15. Voiding dysfunction with urinary retention and indwelling Mckeon catheter. 16. Proteinuria, ketonuria, hematuria, pyuria, bacteriuria and mixed species urinary tract infection. 17. Status post packed red blood cell transfusion x2. 18. Provoked bilateral upper extremity deep venous thrombosis secondary to immobility. 19. Anemia of chronic kidney disease. 20. Sacral left gluteal stage III/IV decubitus ulceration and abscess. 21. Urinary retention. 22. Acute kidney injury. 23. Escherichia coli gram-negative bacteremia and sepsis. 24. Severe gait dysfunction and bedridden status and functional quadriplegia. 25. Upper and lower extremity flexion contractures. 26. Dementia. 27. Constipation. 28. Hypovitaminosis D. 1. Sacral decubitus ulceration and abscess secondary to Proteus mirabilis and Proteus mirabilis sacral decubitus ulceration and abscess. 2. Mixed species urinary tract infection. 3 High-grade fever. 4. Tachycardia. 5. Hypotension and hypertension. 6. Bilateral blindness. 7. Flexion contractures of upper and lower extremity. 8. Leukocytosis with granulocytosis and bandemia. 9. Normocytic anemia. 10. Elevated erythrocyte sedimentation rate of greater than 130. 11. Mild coagulopathy. 12. Acute renal failure, acute kidney injury with chronic kidney disease, stage IV. 13. Protein malnutrition. 14. Hypoalbuminemia. 15. Elevated prostate-specific antigen of 15. 16. Hyperbilirubinemia. 17. Well-controlled insulin-requiring diabetes mellitus with hemoglobin A1c of 6.7. 18. Hyperuricemia. 19. Iron deficiency. 20. Proteinuria, ketonuria, hematuria, bacteriuria, pyuria, and multiple species urinary tract infection. 21. Status post packed red blood cells transfusion x2. 22. Pelvic free fluid and stranding of the intrapelvic fat. 23. Scrotal swelling. 24. Prostatomegaly. 25. Bone marrow edema of the anterior inferior iliac spine on the right side, questionable reactive versus post-traumatic. 26. Pelvic bone marrow nonspecific heterogeneous signal intensity, suggestive of nonspecific increase in the cellular content in the marrow or red marrow reconversion. 27. Postoperative right hip changes. 28. Sacral decubitus ulceration with adjacent soft tissue swelling. 29. Pelvic and proximal thigh diffuse edema consistent with anasarca. 30. Questionable muscle strain of myositis with diffuse muscle edema. 31. Sacral decubitus ulceration with adjacent soft tissue swelling and left posterior paraspinal musculature and lumbosacral junction abscess and phlegmonous changes of the left lateral thigh. 32. Anasarca with diffuse edematous changes of the subcutaneous tissue of the pelvis and proximal thighs. 33. Left renal cyst. 34. Left adrenal nodular thickening. 35. Degenerative joint disease of the lower thoracic spine. 36. Lumbar spine degenerative disk disease, neural foraminal narrowing, foraminal stenosis, bilateral facet arthropathy. 37. Right bundle-branch block, left anterior hemiblock, bifascicular block. 38. Underlying chronic kidney disease, stage II/III. 39. Acute tubular necrosis. 40. Left upper extremity subclavian deep venous thrombosis and right upper extremity basilic vein deep venous thrombosis. 41. Escherichia coli bacteremia with severe sepsis. 42. Severe gait dysfunction and bedridden status and functional quadriplegia. 1. Severe sepsis secondary to Escherichia coli bacteremia and sepsis, probably secondary to urinary tract infection. 2. Possible sacral osteomyelitis with sacral decubitus ulceration, stage II/III. 3. Hypertension. 4. Visual impairment. 5. Dementia and delirium. 6. High-grade fever of 103 degrees Fahrenheit. 7. Leukocytosis with granulocytosis and bandemia. 8. Elevated erythrocyte sedimentation rate of greater than 130. 9. Normocytic anemia. 10. Status post packed red blood cell transfusion. 11. Coagulopathy. 12. Acute renal failure, acute kidney injury, etiology undetermined. 13. Insulin-requiring well-controlled diabetes mellitus with hemoglobin A1c of 6.7. 14. Iron deficiency. 15. Transaminitis. 16. Hypoalbuminemia. 17. Elevated prostate-specific antigen of greater than 15. 18. Hyperprocalcitoninemia. 19. Hyperglycemia. 20. Severe deconditioning, gait dysfunction, and possible functional quadriplegia. 21. Acute on chronic right hip dislocation. 22. Proteinuria, hematuria, pyuria, bacteriuria 23. Escherichia coli bacteremia and sepsis. 24. Multi species urinary tract infection. 25. Status post 2 units of PRBC transfusion. 26. Abnormal EEG with bihemispheric cerebral dysfunction. 27. Questionable provoked left subclavian deep venous thrombosis secondary to mobility versus IV access verses occult malignancy. 28. Coagulopathy. 29. Anemia. 30. Increased uptake of the right hip consistent with right total hip bipolar component dislocation. 31. Increased uptake left femur. 32. Degenerative joint changes of the right sternoclavicular joint. 33. Acute hypoechoic adherent partially occlusive left subclavian vein thrombosis. 34. Adherent nonocclusive thrombus in the right basilic vein. 35. Anasarca. 36. Diffuse soft tissue stranding and thickening within the subcutaneous tissue along sacrum/coccyx with air cluster and fluid within the adjacent left lower paravertebral musculature with air overlying subcutaneous tissue with foci of air within the spinal canal of the lower lumbar spine and sacrum. 37. History of right hip surgery and arthroplasty. 38. Right hip joint dislocation. 39. Right hip joint moderate heterotrophic ossification and minimal heterotropic ossification of the left hip. 40. Hip joint effusion. 41. Degenerative joint disease of the spine. 42. Diverticulosis of the colon. 43. Rectal wall thickening. 44. Sacral decubitus ulceration with sacral coccygeal osteomyelitis with probable adjacent soft tissue infection along left paravertebral musculature with possible extension into the spine. 45. Moderate anasarca 46. Malposition Mckeon catheter. 47. Urinary retention. 48. Elevated prostate-specific antigen. 49. Voiding dysfunction. 50 Mucus plugging with atelectasis, scarring and pulmonary parenchyma with mosaic pattern with intralobular septal thickening. 51. Small bilateral pleural effusion. 52. Coronary artery calcification. 53. Degenerative joint disease of the spine. 54. Minimal left gynecomastia. 55. Elevated left hemidiaphragm. 56. Hepatic cystic *------* bilateral perinephric stranding and bilateral renal cyst. 57. Colonic diverticulosis. 58. Prostatomegaly. 59. 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 60. Bilateral cerebral hemispheric dysfunction. 61. Severe sepsis. 62. Dementia. 63. Toxic metabolic encephalopathy and altered mental status. 1. Gram-negative tejal bacteremia and sepsis. 2. Questionable urinary tract infection secondary to multiple urinary tract species. 3. Hypertension. 4. Severe gait dysfunction and deconditioning and bedridden status and possible functional quadriplegia. 5. Leukocytosis with granulocytosis and bandemia. 6. Normocytic anemia. 7. Elevated erythrocyte sedimentation rate of 136. 8. Elevated reticulocyte count of 1.69. 9. Visual impairment. 10. Mild coagulopathy. 11. Acute kidney injury and acute renal failure. 12. Well-controlled insulin-requiring diabetes mellitus with hemoglobin A1c of 6.7. 13. Iron-deficiency anemia. 14. Transaminitis. 15. Hypoalbuminemia. 16. Hyperuricemia. 17. Hyperbilirubinemia. 18. Hyperprocalcitoninemia. 19. Proteinuria, ketonuria, microscopic hematuria, pyuria, bacteriuria. 20. B negative blood type. 21. Status post 2 units of packed red blood cells. 22. 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 23. Degenerative joint disease and increased uptake on the right hip consistent with dislocated right total hip. 24. Increased uptake of the left femur and degenerative joint disease of the right sternoclavicular joint. 25. Left subclavian vein deep venous thrombosis. 26. Left subclavian vein acute hypoechoic adherent partially occlusive thrombosis, provoked from immobility and possible IV access. 27. Right basilic vein adherent nonocclusive thrombosis. 28. Upper and lower extremity flexion contractures. 29. Cerebral cortical atrophy of the brain. 30. Bedridden status and functional quadriplegia. 31. Intracranial atherosclerotic disease. 32. Left mastoid partial opacification with mild mucosal sinus thickening of the sinuses. 33. Status post packed red blood cell transfusion x2. 34. Hypovitaminosis D. 35. Prostatic hypertrophy. 36. Urinary retention. 37. Elevated prostate-specific antigen of 15, questionable occult malignancy. 38. Anemia of chronic disease. 39. Sacral decubitus ulceration, stage 2. 40. Unspecified dementia. 41. Mild oropharyngeal dysphagia. 42. Mild oral dysphagia. 43. Altered mental status. 44. Flexion contractures of upper and lower extremity. 45. Toxic metabolic encephalopathy. 46. High grade fever. 47. Severe sepsis. 48. Questionable sacral coccygeal osteomyelitis with extension into the soft tissue and left paravertebral musculature with possible extension into the spine. 49. Constipation. 50. Prostatic hypertrophy with urinary retention. 1. High-grade fever. 2. Gram-negative tejal bacteremia and sepsis. 3. Stage II to III sacral decubitus ulceration. 4. Hypotension. 5. Leukocytosis with granulocytosis and bandemia. 6. Elevated erythrocyte sedimentation rate of 136. 7. Mild coagulopathy. 8. Acute kidney injury. 9. Insulin-requiring diabetes mellitus with hemoglobin A1c of 6.7. 10. Iron-deficiency anemia. 11. Transaminitis. 12. Hypoalbuminemia. 13. Severe gait dysfunction and bedridden status. 14. Sacral decubitus ulceration. 15. Hyperuricemia. 16. Hyperbilirubinemia. 17. Hyperprocalcitoninemia. 18. Proteinuria, microscopic hematuria, pyuria, bacteriuria. 19. Right femur dislocation from inaja acetabulum. 20. 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 21. Bilateral hip joint effusion and heterotrophic ossification of the right hip joint and left hip joint. 22. Degenerative joint disease of the spine. 23. Posterior sacral coccyx erosion. 24. Colonic diverticulosis. 25. 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 26. [id number] anasarca. 27. Urinary retention. 28. Mucus plugging and bilateral atelectasis. 29. Interlobular septal thickening. 30. Coronary artery calcification. 31. Degenerative joint disease of spine. 32. Mild left gynecomastia. 33. Elevated left hemidiaphragm. 34. Questionable interstitial edema and anasarca. 35. Bilateral renal cyst. 36. Colonic diverticulosis. 37. Prostatomegaly. 38. Right hip arthroplasty with dislocation of the right hip joint and moderate heterotrophic ossification about the right hip joint. 39. Anasarca. 40. Bilateral perinephric stranding and bilateral renal cyst. 41. Cerebral cortical atrophy of the brain. 42. Periventricular subcortical white matter disease of the brain. 43. Atherosclerotic intracranial arterial disease. 44. Left mastoid partial opacification. 45. Gait dysfunction. 46. Severe deconditioning. 47. Insulin-requiring diabetes mellitus. 48. Anemia, etiology undetermined. 49. Iron-deficiency anemia, etiology undetermined. 50. Incomplete right bundle branch block, left anterior hemiblock, bifascicular block. 51. Mild oral dysphagia. 1. High-grade fever of greater than 103 degrees Fahrenheit. 2. Tachycardia. 3. Hypertension and hypotension. 4. Questionable and probable sepsis. 5. Leukocytosis with granulocytosis and bandemia. 6. Normocytic anemia with decreasing hemoglobin and hematocrit. 7. Mild coagulopathy. 8. Acute renal failure, acute kidney injury. 9. Hypoglycemia. 10. Hyperuricemia. 11. Iron-deficiency normocytic anemia. 12. Transaminitis. 13. Protein malnutrition and hypoalbuminemia. 14. Sepsis with urinary tract infection with proteinuria, ketonuria, microscopic hematuria, pyuria, bacteriuria. 15. History of right hip subcapital fracture open reduction and right hip hemiarthroplasty. History of right femoral neck right hip subcapital fracture, status post surgery. 16. Dementia. 17. Psychosis. 18. Visual impairment. 19. Normocytic anemia. 20. Severe gait dysfunction. 21. Severe deconditioning. 22. History of bifascicular block, right bundle-branch block, left anterior hemiblock. 23. Cerebral cortical atrophy of the brain with periventricular subcortical white matter ischemic disease of the brain. 24. Atherosclerotic intracranial arterial disease. 25. Altered mental status and toxic metabolic encephalopathy, probably secondary to sepsis secondary to urinary tract infection with high-grade fever. 26. Dehydration and hypotension. 27. Toxic metabolic encephalopathy. 28. Anemia with decreasing hemoglobin and hematocrit. PLAN: At this time, the patient has been ordered serial labs. The patient has been ordered IV salt-poor albumin. The patient is on: 1. Mucomyst nebulizer every 6 hours. 2. Albumin 25% 25 g 100 mL IV q. 8 hours. 3. Hydralazine 10 mg q.i.d. 4. Aricept 10 mg at bedtime. 5. Colace 200 mg daily. 6. Drisdol 50,000 units weekly. 7. Ecotrin 81 mg daily. 8. Eliquis 2.5 mg b.i.d. on hold. 9. Flomax 0.4 mg daily. 10. Folic acid 1 mg daily. 11. Humalog medium dose sliding scale coverage a.c. and at bedtime. 12. Lac-Hydrin lotion to both feet. 13. The patient's Ringer's lactate is decreased to 50 mL an hour by Nephrology. 14. Lopressor 50 mg twice a day. 15. MiraLax 17 gm daily. 16. Norvasc 5 mg daily. 17. Pepcid 20 mg daily. 18. Risperdal 1 mg at bedtime. 19. Rocephin 2 gm IV daily. 20. Tylenol 650 mg p.o. suppository q. 4 p.r.n. 21. Xopenex nebulizer 0.63 mg every 6 hours. Chest PT, dysphagia modified consistency diet. I have spoken to the patient's daughter again today. I have explained to the patient's daughter about all the test results, all the diagnoses, all the recommendation by all the physicians in layman's language. I have explained to the patient's daughter that the patient is having multiple comorbidities, multiple complications with most of his body organs, and the patient appears to be in a significantly decompensated state, and if the patient's renal functions do not improve, the patient may require hemodialysis but the patient's daughter has been unable to make any decision. The patient's daughter was also advised living will advance directive, which the patient does not have. The patient's overall guarded to poor prognosis was extensively explained to the patient's daughter on multiple occasions during this hospitalization and even today. At present, the patient is awaiting evaluation by Vascular Surgery regarding the on and off oozing of the left PICC line site. The patient has been given 1 unit of FFP. The patient will be repeated CBC, PT/PTT, CMP, LFT, magnesium, phosphorus in a.m. Dictated and electronically signed, not read. Eliezer Hanna MD [id number]
[2017-09-16 07:25] LABS: EOS # 0.1 (0.0-0.7); EOS % 0.5 % (1.5-5.0); GRAN # 9.67 (1.4-6.5); GRAN % 87.8 % (50.0-68.0); HEMOGLOBIN 8.9 g/dL (14.0-18.0); LYMPH % 9.2 % (22.0-35.0); MEAN CELL VOLUME 91.2 fl (80.0-105.0); MEAN CORPUSCULAR HEMOGLOBIN 30.1 pg (25.0-35.0); MONO # 0.3 (0.1-0.6); MONO % 2.5 % (1.0-6.0); RBC 2.96 10^6/uL (3.5-6.1); RED CELL DISTRIBUTION WIDTH 15.3 % (11.5-14.5)
[2017-09-16 07:42] LABS: INR 1.28 (0.93-1.08); PARTIAL THROMBOPLASTIN TIME 31.1 Seconds (25.1-36.5); PROTHROMBIN TIME 14.8 SECONDS (9.4-12.5)
[2017-09-16 07:53] LABS: ALB/GLOB RATIO 0.8 (1.1-1.8); ALBUMIN 2.3 g/dL (3.0-4.8); CALCIUM 8.4 mg/dL (8.4-10.5); MAGNESIUM 2.2 mg/dL (1.7-2.2)
[2017-09-16 08:22] LABS: BILIRUBIN,DIRECT 0.2 mg/dL (0.0-0.4)
[2017-09-16 09:04] VITALS: RESP 18; O2SAT 99
[2017-09-16] MEDS: Insulin Lispro (humaLOG) MEDIUM Coverage SC SCH ×3 (10:37→18:47)
[2017-09-16] MEDS: cefTRIAXone 2 GM IN NS 2 GM/100 ML BAG IVPB SCH (10:45)
[2017-09-16] MEDS: POLYETHYLENE GLYCOL 3350 17 GM/Dose PACKET PO SCH (10:45)
[2017-09-16] MEDS: Iron Complex Polysacch 150mg Cap PO SCH (10:47)
[2017-09-16] MEDS: Ammonium Lactate 12% Lotion (225 g) EXT SCH (10:47)
--- NOTE | 2017-09-16 12:36 | CP.PCM.PN ---
Subjective - Date & Time of Evaluation Date of Evaluation: 09/16/17 Time of Evaluation: 12:27 - Subjective Subjective: Surgery: Dr. Regan Pt seen and examined. No acute events overnight. Dressing and packing changed. Objective - Vital Signs/Intake and Output Vital Signs (last 24 hours): Temp Pulse Resp BP Pulse Ox 97.9 F 74 18 169/93 H 99 09/16/17 07:00 09/16/17 10:46 09/16/17 07:00 09/16/17 10:46 09/16/17 07:00 Intake and Output: 09/16/17 09/16/17 06:59 18:59 Intake Total 360 Output Total 800 Balance -440 - Medications Medications: Current Medications Acetaminophen (Tylenol 325mg Tab) 650 mg PO Q4 PRN PRN Reason: FOR TEMP>=99.5F Acetaminophen (Tylenol 650 Mg Supp) 650 mg RC Q4H PRN PRN Reason: FEVER>=99.5F Acetylcysteine (Acetylcysteine 20%) 4 ml IH [id number] [facility] Last Admin: 09/16/17 07:37 Dose: 4 ml Amlodipine Besylate (Norvasc) 5 mg PO DAILY [facility] Last Admin: 09/16/17 10:46 Dose: 5 mg Apixaban (Eliquis) 2.5 mg PO BID [facility] PRN Reason: Protocol Last Admin: 09/14/17 09:09 Dose: 2.5 mg Aspirin (Ecotrin) 81 mg PO DAILY [facility] Last Admin: 09/16/17 10:46 Dose: 81 mg Docusate Sodium (Colace) 200 mg PO QPM [facility] Last Admin: 09/15/17 18:50 Dose: Not Given Donepezil HCl (Aricept) 10 mg PO HS [facility] Last Admin: 09/15/17 22:07 Dose: 10 mg Ergocalciferol (Drisdol 50,000 Intl Units Cap) 1 cap PO MON [facility] Last Admin: 09/14/17 09:11 Dose: Not Given Famotidine (Pepcid) 20 mg PO DAILY [facility] Last Admin: 09/16/17 10:47 Dose: 20 mg Folic Acid (Folic Acid) 1 mg PO DAILY [facility] Last Admin: 09/16/17 10:46 Dose: 1 mg Hydralazine HCl (Apresoline) 10 mg PO QID [facility] Last Admin: 09/16/17 10:46 Dose: 10 mg Ceftriaxone Sodium (Rocephin 2 Gm Ivpb) 2 gm in 100 mls @ 100 mls/hr IVPB DAILY [facility] PRN Reason: Protocol Stop: 10/08/17 10:01 Last Admin: 09/16/17 10:45 Dose: 100 mls/hr Lactated Ringer's (Lactated Ringer's) 1,000 mls @ 50 mls/hr IV .Q20H [facility] Last Admin: 09/15/17 18:51 Dose: 50 mls/hr Albumin Human (Albumin Human 25% (25 Gm/100 Ml)) 100 mls @ 1 mls/min IVPB Q8H [facility] Stop: 09/16/17 15:54 Last Admin: 09/16/17 06:25 Dose: 1 mls/min Insulin Human Lispro (Humalog Med) 0 units SC ACHS [facility] PRN Reason: Protocol Last Admin: 09/16/17 12:20 Dose: Not Given Lactic Acid (Lac-Hydrin 12% Lotion (225 G)) 0 gm EXT DAILY [facility] Last Admin: 09/16/17 10:47 Dose: 1 applic Levalbuterol HCl (Xopenex) 0.63 mg IH [id number] [facility] Last Admin: 09/16/17 07:37 Dose: 0.63 mg Metoprolol Tartrate (Lopressor) 50 mg PO BID [facility] Last Admin: 09/16/17 10:46 Dose: 50 mg Polyethylene Glycol (Miralax) 17 gm PO DAILY [facility] Last Admin: 09/16/17 10:45 Dose: 17 gm Polysaccharide Iron Complex (Ferrex-150) 150 mg PO DAILY [facility] Last Admin: 09/16/17 10:47 Dose: 150 mg Risperidone (Risperdal Tab) 1 mg PO DAILY [facility] PRN Reason: Protocol Last Admin: 09/16/17 10:45 Dose: 1 mg Tamsulosin HCl (Flomax) 0.4 mg PO DAILY [facility] Last Admin: 09/16/17 10:47 Dose: 0.4 mg - Labs Labs: 09/16/17 07:00 09/16/17 07:00 PT 14.8 SECONDS (9.4-12.5) H 09/16/17 07:00 INR 1.28 (0.93-1.08) H 09/16/17 07:00 APTT 31.1 Seconds (25.1-36.5) 09/16/17 07:00 - Constitutional Appears: Non-toxic, No Acute Distress - Head Exam Head Exam: ATRAUMATIC, NORMOCEPHALIC - Eye Exam Eye Exam: EOMI - ENT Exam ENT Exam: Mucous Membranes Moist - Neck Exam Neck Exam: Full ROM - Respiratory Exam Respiratory Exam: NORMAL BREATHING PATTERN. absent: Accessory Muscle Use, Respiratory Distress - GI/Abdominal Exam GI & Abdominal Exam: Soft. 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 absent: Oriented x3 Assessment and Plan - Assessment and Plan (Free Text) Assessment: 76M w. sacral decub -cont local wound care with irrigation and packing changes BID -on day 05/23 of Rocephin per ID -cont abx -ok for transfer to nursing facility -d/w attending cierra PGY3
--- NOTE | 2017-09-16 12:38 | CP.PCM.PN ---
Subjective - Date & Time of Evaluation Date of Evaluation: 09/16/17 Time of Evaluation: 12:10 - Subjective Subjective: Comfortable, afebrile. Objective - Vital Signs/Intake and Output Vital Signs (last 24 hours): Temp Pulse Resp BP Pulse Ox 97.9 F 74 18 169/93 H 99 09/16/17 07:00 09/16/17 07:00 09/16/17 07:00 09/16/17 07:00 09/16/17 07:00 Intake and Output: 09/16/17 09/16/17 06:59 18:59 Intake Total 360 Output Total 800 Balance -440 - Medications Medications: Current Medications Acetaminophen (Tylenol 325mg Tab) 650 mg PO Q4 PRN PRN Reason: FOR TEMP>=99.5F Acetaminophen (Tylenol 650 Mg Supp) 650 mg RC Q4H PRN PRN Reason: FEVER>=99.5F Acetylcysteine (Acetylcysteine 20%) 4 ml IH [id number] [facility] Last Admin: 09/16/17 07:37 Dose: 4 ml Amlodipine Besylate (Norvasc) 5 mg PO DAILY [facility] Last Admin: 09/15/17 11:44 Dose: 5 mg Apixaban (Eliquis) 2.5 mg PO BID [facility] PRN Reason: Protocol Last Admin: 09/14/17 09:09 Dose: 2.5 mg Aspirin (Ecotrin) 81 mg PO DAILY [facility] Last Admin: 09/15/17 11:43 Dose: 81 mg Docusate Sodium (Colace) 200 mg PO QPM [facility] Last Admin: 09/15/17 18:50 Dose: Not Given Donepezil HCl (Aricept) 10 mg PO HS [facility] Last Admin: 09/15/17 22:07 Dose: 10 mg Ergocalciferol (Drisdol 50,000 Intl Units Cap) 1 cap PO MON [facility] Last Admin: 09/14/17 09:11 Dose: Not Given Famotidine (Pepcid) 20 mg PO DAILY [facility] Last Admin: 09/15/17 11:45 Dose: 20 mg Folic Acid (Folic Acid) 1 mg PO DAILY [facility] Last Admin: 09/15/17 11:42 Dose: 1 mg Hydralazine HCl (Apresoline) 10 mg PO QID [facility] Last Admin: 09/15/17 22:28 Dose: 10 mg Ceftriaxone Sodium (Rocephin 2 Gm Ivpb) 2 gm in 100 mls @ 100 mls/hr IVPB DAILY [facility] PRN Reason: Protocol Stop: 10/08/17 10:01 Last Admin: 09/15/17 11:45 Dose: 100 mls/hr Lactated Ringer's (Lactated Ringer's) 1,000 mls @ 50 mls/hr IV .Q20H [facility] Last Admin: 09/15/17 18:51 Dose: 50 mls/hr Albumin Human (Albumin Human 25% (25 Gm/100 Ml)) 100 mls @ 1 mls/min IVPB Q8H [facility] Stop: 09/16/17 15:54 Last Admin: 09/16/17 06:25 Dose: 1 mls/min Insulin Human Lispro (Humalog Med) 0 units SC ACHS [facility] PRN Reason: Protocol Last Admin: 09/15/17 22:00 Dose: Not Given Lactic Acid (Lac-Hydrin 12% Lotion (225 G)) 0 gm EXT DAILY [facility] Last Admin: 09/15/17 11:44 Dose: 1 applic Levalbuterol HCl (Xopenex) 0.63 mg IH [id number] [facility] Last Admin: 09/16/17 07:37 Dose: 0.63 mg Metoprolol Tartrate (Lopressor) 50 mg PO BID [facility] Last Admin: 09/15/17 18:50 Dose: 50 mg Polyethylene Glycol (Miralax) 17 gm PO DAILY [facility] Last Admin: 09/15/17 11:44 Dose: Not Given Polysaccharide Iron Complex (Ferrex-150) 150 mg PO DAILY [facility] Last Admin: 09/15/17 11:43 Dose: 150 mg Risperidone (Risperdal Tab) 1 mg PO DAILY [facility] PRN Reason: Protocol Last Admin: 09/15/17 11:42 Dose: 1 mg Tamsulosin HCl (Flomax) 0.4 mg PO DAILY [facility] Last Admin: 09/15/17 11:42 Dose: 0.4 mg - Labs Labs: 09/16/17 07:00 09/16/17 07:00 PT 14.8 SECONDS (9.4-12.5) H 09/16/17 07:00 INR 1.28 (0.93-1.08) H 09/16/17 07:00 APTT 31.1 Seconds (25.1-36.5) 09/16/17 07:00 - Constitutional Appears: Chronically Ill - Head Exam Head Exam: NORMAL INSPECTION - ENT Exam ENT Exam: Mucous Membranes Moist - Neck Exam Neck Exam: absent: Meningismus - Respiratory Exam Respiratory Exam: Decreased Breath Sounds - Cardiovascular Exam Cardiovascular Exam: +S1, +S2 - GI/Abdominal Exam GI & Abdominal Exam: absent: Soft, Tenderness Assessment and Plan - Assessment and Plan (Free Text) Plan: Assessment severe sepsis due to E. coli bacteremia, consider due to UTI, consider sacral osteomyelitis with skin and soft tissue infection, growing Proteus history of sepsis due to bilateral HCAP and UTI with ESBL-producing Klebsiella history of right hip femoral neck fracture S/P hemiarthroplasty DM HTN obesity with BMI 33 Plan continue Rocephin day 10 of 28 - will need weekly ESR, CRP, CBC, CMP while on antibiotics reviewed CT C/A/P and bone scan - bone scan equivocal but CT scan showing probable osteomyelitis will continue to monitor clinically
[2017-09-16] MEDS ORDERED: Sodium Chloride 0.45% 1,000 ML IV SCH (18:00)
[2017-09-16 18:31] VITALS: BP 148/77; PULSE 65; TEMP 99.4
--- NOTE | 2017-09-16 22:47 | PN ---
DATE: 09/16/2017 SUBJECTIVE: The patient is seen lying in bed. He is minimally responsive, does not appear to be in any kind of acute distress. PHYSICAL EXAMINATION: GENERAL: Elderly male lying in bed. VITAL SIGNS: Blood pressure 144/81, heart rate 64, respiratory rate 18, temperature 98.6. HEENT: Normocephalic, atraumatic. NECK: Supple, no JVD. LUNGS: Bilateral equal entry, no rales. CARDIAC: S1, S2. Regular rate and rhythm. No murmur, no rub. ABDOMEN: Obese, distended, soft, nontender, bowel sounds present. EXTREMITIES: No lower extremity edema. INTAKE AND OUTPUT: 840/1200. LABORATORY DATA: WBC 11, hemoglobin 8.9, hematocrit 27, platelets 201. Sodium 144, potassium 3.7, chloride 112, CO2 of 22, BUN 52, creatinine 2.3, glucose 90, calcium 8.4, phosphorus 4.1, magnesium 2.2. CURRENT MEDICATIONS: Apresoline, Aricept, Colace, Drisdol, aspirin, Eliquis, Ringer lactate at 50, Lopressor 50 b.i.d., MiraLax, amlodipine 5, Pepcid 20, Risperdal, Rocephin 2 g daily, Tylenol, and Xopenex. ASSESSMENT: 1. Acute kidney injury, resolving slowly. 2. Altered mental status secondary to sepsis. 3. Left subclavian deep venous thrombosis. 4. History of anemia, hemoglobin has dropped from 10 to 8.9. 5. Hypertension. 6. Bipolar disorder. 7. Coronary artery disease. PLAN: 1. Discontinue Ringer lactate, start half-normal saline. 2. Continue antibiotics as per ID recommendations. 3. Monitor urine output closely. 4. Avoid nephrotoxins Brunilda Argueta MD
--- NOTE | 2017-09-17 03:07 | DS ---
FINAL PROGRESS NOTE AND DISCHARGE SUMMARY HISTORY OF PRESENT ILLNESS: The patient was accepted to [facility] at [place]. The patient was seen lying in the bed in room 574, bed 2. The patient is awake, responsive, confused, disoriented. PHYSICAL EXAMINATION: VITAL SIGNS: T-max in the last 24-48 hours is 97.9. Pulse 64-65. Blood pressure is 162/88, 169/73, 169/73; respiration 18; O2 sat 99%. Output is 700 mL. HEENT: The patient's head examination normocephalic, atraumatic. HEENT examination shows positive blindness. Positive pinkish pale conjunctivae. Anicteric sclerae. No jugular venous distention. CHEST: Kyphosis. LUNGS: Shows no rales, crackles or wheezing. Questionable decreased breath sound at the left base. CARDIOVASCULAR: S1, S2. Regular rhythm. Positive systolic murmur, left sternal border, right second intercostal space, left second intercostal space. ABDOMEN: Protuberant. Positive bowel sound. GENITALIA: Male. Positive Mckeon catheter. EXTREMITY: Shows positive HAIM stockings. Positive flexion contractures of the lower extremity. Positive swelling of the upper extremity noted. Left upper extremity PICC line noted. No bleeding noted. NEUROLOGIC: The patient is alert, awake, responsive, confused, disoriented. MUSCULOSKELETAL: Shows a body mass index of 32. DIAGNOSTICS: On 09/16/2017, WBC 11.0, hemoglobin and hematocrit 9 and 27, platelet 201, granulocytes 88% segs. PT/PTT has come down to 14.8 and 31.1. Sodium 144, potassium 3.7, chloride 112, CO2 of 22, anion gap 13, BUN 52, creatinine 2.3, GFR 34. Glucose 99, 130, 170. Calcium 8.4, phosphorus 4.1, magnesium 2.2. LFTs are normal. Total protein 5.2; albumin 2.3, came up from 1.9. IMPRESSION AND PLAN: 1. Escherichia coli gram-negative bacteremia and sepsis. 2. Proteus mirabilis stage IV sacral decubitus ulceration and abscess and questionable osteomyelitis. 3. Hypertension. 4. Bilateral visual loss and blindness. 5. Possible diabetic retinopathy. 6. Leukocytosis with granulocytosis (resolved). 7. Normocytic anemia, status post packed red blood cell transfusion x4 and fresh frozen plasma transfusion x1. 8. Left upper extremity peripherally inserted central catheter site bleeding (resolved). 9. Bilateral upper extremity deep venous thrombosis. 10. Hypertension. 11. Acute renal failure and acute kidney injury. 12. Leukocytosis with granulocytosis and bandemia. 13. Elevated erythrocyte sedimentation rate of 136. 14. Coagulopathy. 15. Acute renal failure. 16. Insulin-requiring diabetes mellitus with hyperglycemia and hemoglobin A1c of 6.7. 17. Hypocalcemia. 18. Moderate protein malnutrition and hypoalbuminemia. 19. Hyperprocalcitoninemia. 20. Elevated prostate-specific antigen of greater than 15. 21. Proteinuria. 22. Hematuria. 23. Pyuria. 24. Bacteriuria. 25. Proteus mirabilis sacral decubitus ulceration. 26. Status post packed red blood cell transfusion x4. 27. Bihemispheric cerebral dysfunction with abnormal EEG. 28. Status post sacral decubitus ulceration debridement and cleaning. 29. Severe Escherichia coli gram-negative sepsis and bacteremia, probably secondary to urinary tract infection, possible sacral decubitus osteomyelitis and abscess with skin and soft tissue infection secondary to Proteus mirabilis. 30. Chronic right hip dislocation. 31. Bilateral upper and lower extremity flexion contractures. 32. Status post left upper extremity peripherally inserted central catheter line placement. 33. Status post sacral decubitus abscess and ulcer irrigation and packing. 1. Acute renal failure with acute kidney injury. 2. Sacral decubitus ulceration and abscess. 3. Escherichia coli bacteremia and sepsis. 4. Proteus mirabilis sacral decubitus ulceration and abscess. 5. Hypertension. 6. Bilateral visual loss. 7. Leukocytosis with granulocytosis. 8. Normocytic anemia with decreasing hemoglobin and hematocrit. 9. Elevated erythrocyte sedimentation rate of greater than 136. 10. Bandemia. 11. Mild coagulopathy. 12. Acute renal failure, slow resolving. 13. Moderate protein malnutrition and hypoalbuminemia. 14. Bilateral upper extremity edema and deep venous thrombosis. 15. Proteinuria, ketonuria, hematuria, pyuria, bacteriuria. 16. Multiple species contaminated urinary tract infection. 17. Status post 3 units of PRBC and 1 unit FFP transfusion. 18. Questionable coagulopathy with left upper extremity PICC line site bleeding. 19. Severe sepsis secondary to Escherichia coli bacteremia and urinary tract infection. 20. Acute exacerbation of dementia. 21. Severe gait dysfunction and functional quadriplegia. 1. Escherichia coli bacteremia and sepsis. 2. Proteus mirabilis sacral decubitus ulceration and abscess. 3. High-grade fever of 103.2. 4. Hypertension. 5. Transient tachycardia. 6. Leukocytosis with granulocytosis and bandemia. 7. Elevated erythrocyte sedimentation rate of 136. 8. Elevated reticulocyte count of 1.69. 9. Mild coagulopathy. 10. Acute renal failure, acute kidney injury with underlying chronic kidney disease stage IV. 11. Insulin-requiring diabetes mellitus with hyperglycemia and hemoglobin A1c of 6.7. 12. Severe gait dysfunction and bedridden status and functional quadriplegia. 13. Upper and lower extremity flexion contractures. 14. Bilateral upper extremity deep venous thrombosis. 15. Mild protein malnutrition and hypoalbuminemia. 16. Elevated prostate-specific antigen of 15. 17. Hyperprocalcitoninemia. 18. Proteinuria, hematuria, pyuria, bacteriuria. 19. Status post packed red blood cell transfusion x3. 20. Severe gait dysfunction. 21. Bedridden status and functional quadriplegia. 22. Severe sepsis secondary to Escherichia coli bacteremia, possibly secondary to urinary tract infection. 23. History of sacral decubitus osteomyelitis. 24. Acute renal failure superimposed on chronic kidney disease stage 3. 25. Dementia. 26. Sacral decubitus ulceration and abscess. 27. Left subclavian vein and right basilic vein deep venous thrombosis. 28. Left upper extremity peripherally inserted central catheter line site oozing and bleeding. 29. Anemia secondary to chronic kidney disease and acute renal failure. 30. Hypertension. 31. Prostatic hypertrophy with elevated prostate-specific antigen. 32. Bilateral blindness. 33. Gait dysfunction. 1. Left upper extremity peripherally inserted central catheter line site bleeding. 2. Anemia with decreasing hemoglobin and hematocrit. 3. Hypertension. 4. Leukocytosis with granulocytosis and bandemia. 5. Elevated erythrocyte sedimentation rate of greater than 136. 6. Mild coagulopathy. 7. Acute kidney injury and acute renal failure. 8. Insulin-requiring diabetes mellitus with hemoglobin A1c of 6.7. 9. Protein malnutrition and hypoalbuminemia. 10. Elevated prostate-specific antigen. 11. Proteinuria, ketonuria, hematuria, pyuria, bacteriuria. 12. Escherichia coli bacteremia and sepsis. 13. Proteus mirabilis sacral decubitus ulceration and abscess. 14. Status post 2 units packed red blood cells transfusion. 15. Status post left upper extremity peripherally inserted central catheter line placement. 16. Abnormal EEG with bihemispheric cerebral dysfunction. 17. Acute renal failure, acute kidney injury superimposed on chronic kidney disease stage 3. 18. Dementia. 19. Stage IV sacral and left gluteal decubitus ulceration. 1. Escherichia coli bacteremia and sepsis. 2. Proteinuria, ketonuria, microscopic hematuria, pyuria, bacteriuria and mixed species urinary tract infection. 3. Proteus mirabilis sacral decubitus ulceration. 4. Leukocytosis with granulocytosis with bandemia. 5. Elevated erythrocyte sedimentation rate of greater than 130. 6. Elevated reticulocyte count of 1.69. 7. Coagulopathy. 8. Acute kidney injury and acute renal failure. 9. Severe hypoalbuminemia and protein malnutrition. 10. Well-controlled insulin-requiring diabetes mellitus with hemoglobin A1c of 6.7. 11. Iron-deficiency normocytic anemia. 12. Elevated prostate-specific antigen. 13. Hyperprocalcitoninemia. 14. Transaminitis. 15. Hyperuricemia. 16. Transaminitis with hyperbilirubinemia. 17. Severe gait dysfunction and deconditioning. 18. Flexion contractures of upper and lower extremity. 19. Functional quadriplegia with bedridden status. 20. Bilateral vision loss. 21. Hyperglycemia. 22. Hypocalcemia. 23. Status post packed red blood cell transfusion x2. 24. Thoracic spine multifocal spondylosis, possibly ankylosing spondylitis. 25. Diffuse osteopenia, possible osteoporosis with degenerative joint disease of the sacral iliac joint and the left hip joint. 26. Right hip dislocation with history of right hip arthroplasty. 27. Lumbar spine spondylosis with degenerative joint disease. 28. Advanced multilevel lumbar spondylosis and facet arthropathy. 29. Sacral decubitus ulceration and abscess. 30. Degenerative joint disease and degenerative osteoarthrosis of the glenohumeral joint. 31. Bilateral upper extremity swelling and edema deep venous thrombosis of the bilateral upper extremity. 32. Severe gait dysfunction and bedridden status and functional quadriplegia. 33. Calcaneal osteophytes. 34. Questionable nondisplaced fracture of the right calcaneus with overlying soft tissue swelling. 35. Severe bone demineralization. 36. Chronic right hip dislocation. 37. Degenerative joint disease of the hips and the sacroiliac joint. 38. Recurrent chronic dislocation of the right hip joint with right hip arthroplasty with prominent heterotrophic bone. 39. Status post left upper extremity peripherally inserted central catheter line placement. 40. Acute renal failure, acute kidney injury. 41. Upper and lower extremity flexion contractures. 42. Left subclavian vein deep venous thrombosis with acute hypoechoic adherent partially occlusive thrombus. 43. Right basilic vein adherence, nonocclusive thrombus above the elbow with superficial thrombophlebitis. 1. Escherichia coli bacteremia and sepsis. 2. Proteus mirabilis sacral decubitus ulceration and abscess. 3. Multiple species urinary tract infection. 4. Sepsis. 5. High-grade fever of 103 degrees Fahrenheit. 6. Tachycardia. 7. Hypertension and hypotension. 8. Bilateral blindness secondary to diabetic retinopathy. 9. Leukocytosis with granulocytosis. 10. Elevated erythrocyte sedimentation rate of greater than 130. 11. Normocytic anemia. 12. Acute renal failure and acute kidney injury, etiology unclear. 13. Insulin-requiring diabetes mellitus with hemoglobin A1c of 6.7 and hyperglycemia. 14. Elevated prostate-specific antigen of 15.0. 15. Voiding dysfunction with urinary retention and indwelling Mckeon catheter. 16. Proteinuria, ketonuria, hematuria, pyuria, bacteriuria and mixed species urinary tract infection. 17. Status post packed red blood cell transfusion x2. 18. Provoked bilateral upper extremity deep venous thrombosis secondary to immobility. 19. Anemia of chronic kidney disease. 20. Sacral left gluteal stage III/IV decubitus ulceration and abscess. 21. Urinary retention. 22. Acute kidney injury. 23. Escherichia coli gram-negative bacteremia and sepsis. 24. Severe gait dysfunction and bedridden status and functional quadriplegia. 25. Upper and lower extremity flexion contractures. 26. Dementia. 27. Constipation. 28. Hypovitaminosis D. 1. Sacral decubitus ulceration and abscess secondary to Proteus mirabilis and Proteus mirabilis sacral decubitus ulceration and abscess. 2. Mixed species urinary tract infection. 3 High-grade fever. 4. Tachycardia. 5. Hypotension and hypertension. 6. Bilateral blindness. 7. Flexion contractures of upper and lower extremity. 8. Leukocytosis with granulocytosis and bandemia. 9. Normocytic anemia. 10. Elevated erythrocyte sedimentation rate of greater than 130. 11. Mild coagulopathy. 12. Acute renal failure, acute kidney injury with chronic kidney disease, stage IV. 13. Protein malnutrition. 14. Hypoalbuminemia. 15. Elevated prostate-specific antigen of 15. 16. Hyperbilirubinemia. 17. Well-controlled insulin-requiring diabetes mellitus with hemoglobin A1c of 6.7. 18. Hyperuricemia. 19. Iron deficiency. 20. Proteinuria, ketonuria, hematuria, bacteriuria, pyuria, and multiple species urinary tract infection. 21. Status post packed red blood cells transfusion x2. 22. Pelvic free fluid and stranding of the intrapelvic fat. 23. Scrotal swelling. 24. Prostatomegaly. 25. Bone marrow edema of the anterior inferior iliac spine on the right side, questionable reactive versus post-traumatic. 26. Pelvic bone marrow nonspecific heterogeneous signal intensity, suggestive of nonspecific increase in the cellular content in the marrow or red marrow reconversion. 27. Postoperative right hip changes. 28. Sacral decubitus ulceration with adjacent soft tissue swelling. 29. Pelvic and proximal thigh diffuse edema consistent with anasarca. 30. Questionable muscle strain of myositis with diffuse muscle edema. 31. Sacral decubitus ulceration with adjacent soft tissue swelling and left posterior paraspinal musculature and lumbosacral junction abscess and phlegmonous changes of the left lateral thigh. 32. Anasarca with diffuse edematous changes of the subcutaneous tissue of the pelvis and proximal thighs. 33. Left renal cyst. 34. Left adrenal nodular thickening. 35. Degenerative joint disease of the lower thoracic spine. 36. Lumbar spine degenerative disk disease, neural foraminal narrowing, foraminal stenosis, bilateral facet arthropathy. 37. Right bundle-branch block, left anterior hemiblock, bifascicular block. 38. Underlying chronic kidney disease, stage II/III. 39. Acute tubular necrosis. 40. Left upper extremity subclavian deep venous thrombosis and right upper extremity basilic vein deep venous thrombosis. 41. Escherichia coli bacteremia with severe sepsis. 42. Severe gait dysfunction and bedridden status and functional quadriplegia. 1. Severe sepsis secondary to Escherichia coli bacteremia and sepsis, probably secondary to urinary tract infection. 2. Possible sacral osteomyelitis with sacral decubitus ulceration, stage II/III. 3. Hypertension. 4. Visual impairment. 5. Dementia and delirium. 6. High-grade fever of 103 degrees Fahrenheit. 7. Leukocytosis with granulocytosis and bandemia. 8. Elevated erythrocyte sedimentation rate of greater than 130. 9. Normocytic anemia. 10. Status post packed red blood cell transfusion. 11. Coagulopathy. 12. Acute renal failure, acute kidney injury, etiology undetermined. 13. Insulin-requiring well-controlled diabetes mellitus with hemoglobin A1c of 6.7. 14. Iron deficiency. 15. Transaminitis. 16. Hypoalbuminemia. 17. Elevated prostate-specific antigen of greater than 15. 18. Hyperprocalcitoninemia. 19. Hyperglycemia. 20. Severe deconditioning, gait dysfunction, and possible functional quadriplegia. 21. Acute on chronic right hip dislocation. 22. Proteinuria, hematuria, pyuria, bacteriuria 23. Escherichia coli bacteremia and sepsis. 24. Multi species urinary tract infection. 25. Status post 2 units of PRBC transfusion. 26. Abnormal EEG with bihemispheric cerebral dysfunction. 27. Questionable provoked left subclavian deep venous thrombosis secondary to mobility versus IV access verses occult malignancy. 28. Coagulopathy. 29. Anemia. 30. Increased uptake of the right hip consistent with right total hip bipolar component dislocation. 31. Increased uptake left femur. 32. Degenerative joint changes of the right sternoclavicular joint. 33. Acute hypoechoic adherent partially occlusive left subclavian vein thrombosis. 34. Adherent nonocclusive thrombus in the right basilic vein. 35. Anasarca. 36. Diffuse soft tissue stranding and thickening within the subcutaneous tissue along sacrum/coccyx with air cluster and fluid within the adjacent left lower paravertebral musculature with air overlying subcutaneous tissue with foci of air within the spinal canal of the lower lumbar spine and sacrum. 37. History of right hip surgery and arthroplasty. 38. Right hip joint dislocation. 39. Right hip joint moderate heterotrophic ossification and minimal heterotropic ossification of the left hip. 40. Hip joint effusion. 41. Degenerative joint disease of the spine. 42. Diverticulosis of the colon. 43. Rectal wall thickening. 44. Sacral decubitus ulceration with sacral coccygeal osteomyelitis with probable adjacent soft tissue infection along left paravertebral musculature with possible extension into the spine. 45. Moderate anasarca 46. Malposition Mckeon catheter. 47. Urinary retention. 48. Elevated prostate-specific antigen. 49. Voiding dysfunction. 50 Mucus plugging with atelectasis, scarring and pulmonary parenchyma with mosaic pattern with intralobular septal thickening. 51. Small bilateral pleural effusion. 52. Coronary artery calcification. 53. Degenerative joint disease of the spine. 54. Minimal left gynecomastia. 55. Elevated left hemidiaphragm. 56. Hepatic cystic *------* bilateral perinephric stranding and bilateral renal cyst. 57. Colonic diverticulosis. 58. Prostatomegaly. 59. 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 60. Bilateral cerebral hemispheric dysfunction. 61. Severe sepsis. 62. Dementia. 63. Toxic metabolic encephalopathy and altered mental status. 1. Gram-negative tejal bacteremia and sepsis. 2. Questionable urinary tract infection secondary to multiple urinary tract species. 3. Hypertension. 4. Severe gait dysfunction and deconditioning and bedridden status and possible functional quadriplegia. 5. Leukocytosis with granulocytosis and bandemia. 6. Normocytic anemia. 7. Elevated erythrocyte sedimentation rate of 136. 8. Elevated reticulocyte count of 1.69. 9. Visual impairment. 10. Mild coagulopathy. 11. Acute kidney injury and acute renal failure. 12. Well-controlled insulin-requiring diabetes mellitus with hemoglobin A1c of 6.7. 13. Iron-deficiency anemia. 14. Transaminitis. 15. Hypoalbuminemia. 16. Hyperuricemia. 17. Hyperbilirubinemia. 18. Hyperprocalcitoninemia. 19. Proteinuria, ketonuria, microscopic hematuria, pyuria, bacteriuria. 20. B negative blood type. 21. Status post 2 units of packed red blood cells. 22. 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 23. Degenerative joint disease and increased uptake on the right hip consistent with dislocated right total hip. 24. Increased uptake of the left femur and degenerative joint disease of the right sternoclavicular joint. 25. Left subclavian vein deep venous thrombosis. 26. Left subclavian vein acute hypoechoic adherent partially occlusive thrombosis, provoked from immobility and possible IV access. 27. Right basilic vein adherent nonocclusive thrombosis. 28. Upper and lower extremity flexion contractures. 29. Cerebral cortical atrophy of the brain. 30. Bedridden status and functional quadriplegia. 31. Intracranial atherosclerotic disease. 32. Left mastoid partial opacification with mild mucosal sinus thickening of the sinuses. 33. Status post packed red blood cell transfusion x2. 34. Hypovitaminosis D. 35. Prostatic hypertrophy. 36. Urinary retention. 37. Elevated prostate-specific antigen of 15, questionable occult malignancy. 38. Anemia of chronic disease. 39. Sacral decubitus ulceration, stage 2. 40. Unspecified dementia. 41. Mild oropharyngeal dysphagia. 42. Mild oral dysphagia. 43. Altered mental status. 44. Flexion contractures of upper and lower extremity. 45. Toxic metabolic encephalopathy. 46. High grade fever. 47. Severe sepsis. 48. Questionable sacral coccygeal osteomyelitis with extension into the soft tissue and left paravertebral musculature with possible extension into the spine. 49. Constipation. 50. Prostatic hypertrophy with urinary retention. 1. High-grade fever. 2. Gram-negative tejal bacteremia and sepsis. 3. Stage II to III sacral decubitus ulceration. 4. Hypotension. 5. Leukocytosis with granulocytosis and bandemia. 6. Elevated erythrocyte sedimentation rate of 136. 7. Mild coagulopathy. 8. Acute kidney injury. 9. Insulin-requiring diabetes mellitus with hemoglobin A1c of 6.7. 10. Iron-deficiency anemia. 11. Transaminitis. 12. Hypoalbuminemia. 13. Severe gait dysfunction and bedridden status. 14. Sacral decubitus ulceration. 15. Hyperuricemia. 16. Hyperbilirubinemia. 17. Hyperprocalcitoninemia. 18. Proteinuria, microscopic hematuria, pyuria, bacteriuria. 19. Right femur dislocation from platinum acetabulum. 20. 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 21. Bilateral hip joint effusion and heterotrophic ossification of the right hip joint and left hip joint. 22. Degenerative joint disease of the spine. 23. Posterior sacral coccyx erosion. 24. Colonic diverticulosis. 25. 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 26. [id number] anasarca. 27. Urinary retention. 28. Mucus plugging and bilateral atelectasis. 29. Interlobular septal thickening. 30. Coronary artery calcification. 31. Degenerative joint disease of spine. 32. Mild left gynecomastia. 33. Elevated left hemidiaphragm. 34. Questionable interstitial edema and anasarca. 35. Bilateral renal cyst. 36. Colonic diverticulosis. 37. Prostatomegaly. 38. Right hip arthroplasty with dislocation of the right hip joint and moderate heterotrophic ossification about the right hip joint. 39. Anasarca. 40. Bilateral perinephric stranding and bilateral renal cyst. 41. Cerebral cortical atrophy of the brain. 42. Periventricular subcortical white matter disease of the brain. 43. Atherosclerotic intracranial arterial disease. 44. Left mastoid partial opacification. 45. Gait dysfunction. 46. Severe deconditioning. 47. Insulin-requiring diabetes mellitus. 48. Anemia, etiology undetermined. 49. Iron-deficiency anemia, etiology undetermined. 50. Incomplete right bundle branch block, left anterior hemiblock, bifascicular block. 51. Mild oral dysphagia. 1. High-grade fever of greater than 103 degrees Fahrenheit. 2. Tachycardia. 3. Hypertension and hypotension. 4. Questionable and probable sepsis. 5. Leukocytosis with granulocytosis and bandemia. 6. Normocytic anemia with decreasing hemoglobin and hematocrit. 7. Mild coagulopathy. 8. Acute renal failure, acute kidney injury. 9. Hypoglycemia. 10. Hyperuricemia. 11. Iron-deficiency normocytic anemia. 12. Transaminitis. 13. Protein malnutrition and hypoalbuminemia. 14. Sepsis with urinary tract infection with proteinuria, ketonuria, microscopic hematuria, pyuria, bacteriuria. 15. History of right hip subcapital fracture open reduction and right hip hemiarthroplasty. History of right femoral neck right hip subcapital fracture, status post surgery. 16. Dementia. 17. Psychosis. 18. Visual impairment. 19. Normocytic anemia. 20. Severe gait dysfunction. 21. Severe deconditioning. 22. History of bifascicular block, right bundle-branch block, left anterior hemiblock. 23. Cerebral cortical atrophy of the brain with periventricular subcortical white matter ischemic disease of the brain. 24. Atherosclerotic intracranial arterial disease. 25. Altered mental status and toxic metabolic encephalopathy, probably secondary to sepsis secondary to urinary tract infection with high-grade fever. 26. Dehydration and hypotension. 27. Toxic metabolic encephalopathy. 28. Anemia with decreasing hemoglobin and hematocrit. Plan at this time, the patient is to be discharged at [facility]. The patient is discharged on Rocephin 2 g IV daily for a total of 28 days. The patient is to be resumed on Eliquis 2.5 mg twice a day, Tylenol 650 mg p.o. and suppository q. 4 p.r.n. Mucomyst nebulizer every 6 hours, Pro-Stat liquid 30 mL twice a day, Lac-Hydrin lotion to the both feet and legs twice a day, Eliquis 2.5 mg twice a day, aspirin 81 mg daily, Colace 200 mg daily, Aricept 10 mg at bedtime, Drisdol 50,000 units weekly, Pepcid 20 mg daily, folic acid 1 mg daily, Levemir 10 units twice a day, Humalog medium-dose sliding scale coverage, Xopenex nebulizer 0.63 mg every 6 hours, Lopressor 50 mg twice a day, MiraLax 17 g daily, Risperdal 1 mg at bedtime, Flomax 0.4 mg daily, Rocephin 2 g IV daily for a total of 28 days, hydralazine 10 mg q.i.d. At present, the patient will be discharged to [facility] as per the patient's insurance approval, which has been notified to the patient's daughter at length by me and the social services manager. I have spoken to the patient's daughter, Yue Tadeo on multiple occasions during this hospitalization and explained to the patient's daughter about the patient's overall guarded to poor prognosis and declining overall health and multisystem organ dysfunction and decompensation. I have also explained to the patient's daughter that if the patient's renal function and the patient's condition deteriorates, the patient most likely will require hemodialysis in the very near future. I have also discussed with the patient's daughter about living will advance directive. Dictated and electronically signed, not read. Time spent in the entire discharge process more than 45 minutes. lEiezer Hanna MD [place]
== END 2017-09-16 21:23 | DRG 871 ==
LOC: ED 17:42 → ERH 21:22 → 5RSO 09-06 01:29
PROVIDERS: ADMIT Internal Medicine; ATTEND Internal Medicine
PROC: 30233N1 Transfusion of Nonautologous Red Blood Cells into Peripheral Vein, Percutaneous Approach (ICD-10-PCS; 2017-09-06)
PROC: 0HBRXZZ Excision of Toe Nail, External Approach (ICD-10-PCS; 2017-09-07)
PROC: 02HV33Z Insertion of Infusion Device into Superior Vena Cava, Percutaneous Approach (ICD-10-PCS; principal; 2017-09-11)
PROC: B548ZZA Ultrasonography of Superior Vena Cava, Guidance (ICD-10-PCS; 2017-09-11)
PROC: 30233K1 Transfusion of Nonautologous Frozen Plasma into Peripheral Vein, Percutaneous Approach (ICD-10-PCS; 2017-09-15)
DX: A41.51 Sepsis due to Escherichia coli [E. coli] (principal); G92 Toxic encephalopathy; N17.0 Acute kidney failure with tubular necrosis; L89.154 Pressure ulcer of sacral region, stage 4; L89.153 Pressure ulcer of sacral region, stage 3; E44.0 Moderate protein-calorie malnutrition; I82.B12 Acute embolism and thrombosis of left subclavian vein; R53.2 Functional quadriplegia; E11.22 Type 2 diabetes mellitus with diabetic chronic kidney disease; I13.0 Hypertensive heart and chronic kidney disease with heart failure and stage 1 through stage 4 chronic kidney disease, or unspecified chronic kidney disease; I50.32 Chronic diastolic (congestive) heart failure; N39.0 Urinary tract infection, site not specified; M46.28 Osteomyelitis of vertebra, sacral and sacrococcygeal region; L03.818 Cellulitis of other sites; N18.4 Chronic kidney disease, stage 4 (severe); I82.611 Acute embolism and thrombosis of superficial veins of right upper extremity; E11.65 Type 2 diabetes mellitus with hyperglycemia; N28.1 Cyst of kidney, acquired; R13.11 Dysphagia, oral phase; F03.90 Unspecified dementia, unspecified severity, without behavioral disturbance, psychotic disturbance, mood disturbance, and anxiety; R65.20 Severe sepsis without septic shock; K59.00 Constipation, unspecified; R33.8 Other retention of urine; N40.1 Benign prostatic hyperplasia with lower urinary tract symptoms; H54.3 Unqualified visual loss, both eyes; E11.319 Type 2 diabetes mellitus with unspecified diabetic retinopathy without macular edema; I25.10 Atherosclerotic heart disease of native coronary artery without angina pectoris; F20.9 Schizophrenia, unspecified; D50.9 Iron deficiency anemia, unspecified; E79.0 Hyperuricemia without signs of inflammatory arthritis and tophaceous disease; E55.9 Vitamin D deficiency, unspecified; F31.9 Bipolar disorder, unspecified; D63.1 Anemia in chronic kidney disease; M16.0 Bilateral primary osteoarthritis of hip; M24.451 Recurrent dislocation, right hip; B96.4 Proteus (mirabilis) (morganii) as the cause of diseases classified elsewhere; E86.0 Dehydration; K57.30 Diverticulosis of large intestine without perforation or abscess without bleeding; Z79.4 Long term (current) use of insulin; M47.816 Spondylosis without myelopathy or radiculopathy, lumbar region; E66.9 Obesity, unspecified; Z68.33 Body mass index [BMI] 33.0-33.9, adult